=== PATIENT | female | born 1950 | race Caucasian/White ===

== ENCOUNTER → 2017-07-21 | Outpatient (CLI) | payer MEDICARE ==
--- NOTE | 2017-07-23 08:12 | MM ---
Reason for exam: screening (asymptomatic). Last mammogram was performed 2 years and 1 month ago. History: Patient is postmenopausal. Family history of breast cancer in paternal aunt at age 38 and breast cancer in daughter. Benign right mammotome panel of the right breast, March 14, 2009. Benign right mammotome panel of the right breast, March 14, 2009. Physical Findings: A clinical breast exam by your physician is recommended on an annual basis and results should be correlated with mammographic findings. MG Screening Mammo w CAD Bilateral CC and MLO view(s) were taken. Prior study comparison: June 08, 2015, bilateral MG screening mammo w CAD. January 02, 2011, bilateral digital screening mammo w/CAD. There are scattered fibroglandular densities. Stable benign calcifications. There is no discrete abnormality. No significant changes when compared with prior studies. ASSESSMENT: Benign, BI-RAD 2 RECOMMENDATION: Routine screening mammogram of both breasts in 1 year.
== END ==
LOC: RADMAMWWP 15:01
PROVIDERS: ATTEND Internal Medicine
DX: Z12.31 Encounter for screening mammogram for malignant neoplasm of breast (principal)

== ENCOUNTER 2017-12-02 10:31 | Emergency (ER) | payer OTHER, MEDICARE ==
[2017-12-02 10:42] VITALS: RESP 16; TEMP 98
[2017-12-02 10:57] LABS: Glucose,Whole Blood 133 mg/dL (75-99)
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
[2017-12-02] MEDS ORDERED: ACETAMINOPHEN TAB 500 MG TAB PO STA (12:14)
[2017-12-02 12:32] VITALS: BP 130/83; PULSE 68
== END 2017-12-02 12:31 | disposition home or self-care (01) ==
LOC: EC 10:31
DX: S22.31XA Fracture of one rib, right side, initial encounter for closed fracture (principal); Z79.82 Long term (current) use of aspirin; E78.5 Hyperlipidemia, unspecified; I10 Essential (primary) hypertension; Z79.899 Other long term (current) drug therapy; Z53.29 Procedure and treatment not carried out because of patient's decision for other reasons; V49.40XA Driver injured in collision with unspecified motor vehicles in traffic accident, initial encounter; Y92.410 Unspecified street and highway as the place of occurrence of the external cause
CPT/HCPCS: 36415; 71250; 72125; 93005; 99285

== ENCOUNTER → 2022-10-09 | Outpatient (CLI) | payer MEDICARE ==
--- NOTE | 2022-10-09 11:46 | BD ---
EXAMINATION TYPE: Axial Bone Density DATE OF EXAM: 10/09/2022 COMPARISON: NONE CLINICAL HISTORY: 71 years year old Female. ICD-10 CODE: M85.80 OSTEOPENIA Height: 5 FT 1 1/2 IN Weight: 198 FRAX RISK QUESTIONS: Alcohol (3 or more units per day): NO Family History (Parent hip fracture): NO Glucocorticoids (More than 3mos): NO (Ex: prednisone, prednisolone, methylprednisolone, dexamethasone, and hydrocortisone). History of Fracture in Adulthood: NO Secondary Osteoporosis: 1. Type 1 Diabetes: NO 2. Hyperthyroidism: NO 3. Menopause before 45: NO 4. Malnutrition: NO 5. Chronic liver disease: NO Rheumatoid Arthritis: NO Current Tobacco Use: NO RISK FACTORS HISTORY OF: Surgery to Spine/Hip(right/left)/Wrist (right/left): NO Family History of Osteoporosis: YES Active: SOMETIMES Diet low in dairy products/other sources of calcium: NO Postmenopausal woman: YES Take estrogen and/or progesterone medications: NO Lost more than 2 inches in height since high school: YES Frequent falls: NO Poor Health: GOOD Hyperparathyroidism: NO Adrenal Insufficiency: NO MEDICATIONS: Additional Medications: BLOOD PRESSURE MEDS Additional History: EXAM MEASUREMENTS: Bone mineral densitometry was performed using the [employer] System. Bone mineral density as measured about the Lumbar spine is: ----- L1-L4(G/cm2): 1.220 T Score Values are as follows: ----- L1: -1.2 ----- L2: -0.9 ----- L3: 1.1 ----- L4: 1.7 ----- L1-L4: 0.3 Bone mineral density has: DECREASED -5.9 % since study of: 2014 Bone mineral density about the R hip (g/cm2): 0.662 Bone mineral density about the L hip (g/cm2): 0.683 T Score values are as follows: -----R Neck: -2.7 -----L Neck: -2.6 -----R Total: -2.0 -----L Total: -2.4 Bone mineral density has: DECREASED -20.1 % since study of: 2014 FRAX%s: The graph provided illustrates a 16.4 % chance for a major osteoporotic fx and a 5.2 % chance for the hips probability for fx in 10 years time. IMPRESSION: Osteoporosis (T Score less than -2.5). There is increased fracture risk and therapy is usually indicated based on age. Re-Screen 1-2 years. NOTE: T-SCORE=SD OF THE YOUNG ADULT MEAN.
--- NOTE | 2022-10-10 13:34 | MM ---
Reason for Exam: Screening (asymptomatic). Last mammogram was performed 5 year(s) and 2 month(s) ago. Patient History: Menarche at age 10. First Full-Term at age 19. Postmenopausal. 03/14/2009, Benign Core Biopsy on the right side. 03/14/2009, Benign Core Biopsy on the right side. Paternal aunt had breast cancer, age 38. Daughter had breast cancer, bilateral, age 46. Risk Values: Fabby 5 year model risk: 5.0%. NCI Lifetime model risk: 12.0%. Prior Study Comparison: 01/02/2011 Bilateral Screening Mammogram, [facility]. 06/08/2015 Bilateral Screening Mammogram, [facility]. 07/21/2017 Bilateral Screening Mammogram, [facility]. Tissue Density: There are scattered fibroglandular densities. Findings: Analyzed By CAD. Small benign-appearing round along with vascular calcifications in the bilateral breasts are redemonstrated. There are 2 adjacent mammotome biopsy clips in the right breast again seen. No suspicious new dominant mass or worrisome cluster of microcalcification is present bilaterally. Overall Assessment: Benign, BI-RAD 2 Management: Screening Mammogram of both breasts in 1 year. A clinical breast exam by your physician is recommended on an annual basis and results should be correlated with mammographic findings. Electronically signed and approved by: Yovany Arguelles M.D.
== END | disposition home or self-care (01) ==
LOC: RADMAMWWP 09:23
PROVIDERS: ATTEND Family Medicine
DX: Z12.31 Encounter for screening mammogram for malignant neoplasm of breast (principal); M81.0 Age-related osteoporosis without current pathological fracture; M85.89 Other specified disorders of bone density and structure, multiple sites; Z78.0 Asymptomatic menopausal state; Z80.3 Family history of malignant neoplasm of breast; Z98.890 Other specified postprocedural states
CPT/HCPCS: 77063; 77067; 77080

== ENCOUNTER 2023-09-06 19:45 | Inpatient (IN) | payer MEDICARE ==
[2023-09-06 21:13] LABS: Basophils % (A) 0 %; Eosinophils % (A) 0 %; HCT 44.4 % (34.0-46.0); HGB 14.8 gm/dL (11.4-16.0); Lymphocytes # (A) 2.4 k/uL (1.0-4.8); Lymphocytes % (A) 24 %; MCH 27.2 pg (25.0-35.0); MCHC 33.3 g/dL (31.0-37.0); MCV 81.8 fL (80.0-100.0); Mean Platelet Volume 7.6; Monocytes # (A) 0.8 k/uL (0-1.0); Monocytes % (A) 8 %; Neutrophils # (A) 6.5 k/uL (1.3-7.7); Neutrophils % (A) 65 %; Platelet Count 379 k/uL (150-450); RBC 5.43 m/uL (3.80-5.40); RDW 14.3 % (11.5-15.5)
[2023-09-06 21:24] LABS: ALT 16 U/L (4-34); AST 27 U/L (14-36); African American GFR (CKD) 88 (>60 ml/min/1.73 sqM); Albumin 4.3 g/dL (3.5-5.0); Alkaline Phosphatase 138 U/L (38-126); Anion Gap 14 mmol/L; Appearance,Urine Cloudy (Clear); Bacteria,Urine Rare /hpf; Bilirubin,Urine Negative (Negative); Blood Urea Nitrogen 21 mg/dL (7-17); Blood,Urine Negative (Negative); Calcium 9.7 mg/dL (8.4-10.2); Carbon Dioxide 24 mmol/L (22-30); Cellular Casts,Urine 4 /lpf (0); Chloride 103 mmol/L (98-107); Color,Urine Yellow; Glucose 108 mg/dL (74-99); Glucose,Urine (UA) Negative (Negative); Hyaline Casts,Urine 12 /lpf (0-2); Ketones,Urine Negative (Negative); Leukocyte Esterase,Urine Large (Negative); Magnesium 1.9 mg/dL (1.6-2.3); Mucus,Urine Many /hpf; Nitrite,Urine Negative (Negative); Non-African American GFR(CKD) 76 (>60 ml/min/1.73 sqM); PH, Urine 5.5 (5.0-8.0); Potassium 3.6 mmol/L (3.5-5.1); Protein,Urine 1+ (Negative); RBC,Urine 5 /hpf (0-5); Sodium 141 mmol/L (137-145); Specific Gravity,Urine 1.024 (1.001-1.035); Squamous Epithelial Cell,Urine 5 /hpf (0-4); Total Bilirubin 0.5 mg/dL (0.2-1.3); Total Protein 8.8 g/dL (6.3-8.2); Urobilinogen,Urine <2.0 mg/dL (<2.0); WBC,Urine 50 /hpf (0-5)
[2023-09-06 21:36] LABS: Partial Thromboplastin Time 24.6 sec (22.0-30.0); Prothrombin Time 10.7 sec (10.0-12.5)
--- NOTE | 2023-09-06 21:37 | XR ---
EXAMINATION TYPE: XR chest 2V DATE OF EXAM: 09/06/2023 COMPARISON: None HISTORY: 72-year-old female confusion, chest pain, syncopal episode, altered mental state TECHNIQUE: PA and lateral views FINDINGS: Heart mildly enlarged. Interstitial prominence. Hyperinflation. No consolidation or pleural effusion. IMPRESSION: Mild cardiomegaly and COPD. Otherwise, no acute process seen.
--- NOTE | 2023-09-06 22:12 | ED ---
Altered Mental Status HPI - General Chief Complaint: Altered Mental Status Stated Complaint: Afib Time Seen by Provider: 09/06/23 19:54 Source: patient Mode of arrival: wheelchair Limitations: no limitations - History of Present Illness Initial Comments: 72-year-old female with a past medical history significant for hypertension presenting to the ED with a chief complaint of dizziness. Per patient, was standing in the kitchen preparing food when she all of a sudden felt as if she was going to pass out. Due to this, patient states that she went to sit down and at this time patient's daughter reports that she seemed to have a vasovagal episode. During this time, they report that the patient's eyes rolled to the back of her head and she stopped responding to their questions. During this time, patient reports that she was able to hear and see everything as normally however felt as if she was to weak/fatigued to do anything. During this time t here is no chest pain shortness of breath or palpitations. Episode lasted approximately 1-2 minutes. As of now, both patient and family report that she is back to her normal self. Denies abdominal pain, nausea, vomiting, diarrhea, changes in bowel or bladder habits. No other complaints. - Related Data Home Medications Medication Instructions Recorded Confirmed Aspirin EC [Ecotrin Low Dose] 81 mg PO HS 12/02/17 09/06/23 Metoprolol Tartrate [Lopressor] 50 mg PO HS 12/02/17 09/06/23 Pravastatin Sodium [Pravachol] 20 mg PO HS 12/02/17 09/06/23 amLODIPine [Norvasc] 10 mg PO HS 12/02/17 09/06/23 lisinopriL [Zestril] 20 mg PO HS 09/06/23 09/06/23 Allergies Allergy/AdvReac Type Severity Reaction Status Date / Time No Known Allergies Allergy Verified 09/06/23 21:58 Review of Systems ROS Statement: Those systems with pertinent positive or pertinent negative responses have been documented in the HPI. ROS Other: All systems not noted in ROS Statement are negative. Past Medical History Past Medical History: Atrial Fibrillation, Hyperlipidemia, Hypertension History of Any Multi-Drug Resistant Organisms: None Reported Past Surgical History: No Surgical Hx Reported Past Psychological History: No Psychological Hx Reported Smoking Status: Never smoker Past Alcohol Use History: None Reported, Unable to Obtain Past Drug Use History: None Reported General Exam Limitations: no limitations General appearance: alert, in no apparent distress Eye exam: Present: normal appearance Neck exam: Present: normal inspection Respiratory exam: Present: normal lung sounds bilaterally Cardiovascular Exam: Present: regular rate, normal rhythm GI/Abdominal exam: Present: soft Neurological exam: Present: alert, oriented X3, CN II-XII intact (Finger to nose, rapid alternating hand movements, [id number] intact.) Skin exam: Present: warm, dry Course Vital Signs 09/06/23 09/06/23 09/06/23 19:46 20:08 21:00 Temperature 97.9 F 98.1 F Pulse Rate 89 87 86 Respiratory 18 18 18 Rate Blood Pressure 155/86 141/71 154/90 O2 Sat by Pulse 99 98 Oximetry Medical Decision Making - Medical Decision Making Was pt. sent in by a medical professional or institution (, PA, DIANETIC COUNSELOR, urgent care, hospital, or half-way...) When possible be specific @ -No Did you speak to anyone other than the patient for history (EMS, parent, family, police, friend...)? What history was obtained from this source @ -Spoke to both patient and family for history. For further details please see HPI. Did you review nursing and triage notes (agree or disagree)? Why? @ -I reviewed and agree with nursing and triage notes Were old charts reviewed (outside hosp., previous admission, EMS record, old EKG, old radiological studies, urgent care reports/EKG's, half-way records)? Report findings @ -No old charts were reviewed Differential Diagnosis (chest pain, altered mental status, abdominal pain women, abdominal pain men, vaginal bleeding, weakness, fever, dyspnea, syncope, headache, dizziness, GI bleed, back pain, seizure, CVA, palpatations, mental health, musculoskeletal)? @ -Differential Dizziness: Benign paroxysmal positional Vertigo, Menieres disease, otitis media, acoustic neuroma, vertebrobasilar insufficiency, cerebellar stroke, encephalitis, hypovolemic, arrhythmia, coronary artery syndrome, anemia, this is not meant to be an all-inclusive list Differential Chest Pain: Stable Angina, Unstable Angina, STEMI, NSTEMI Aortic Dissection, Pneumothorax, Musculoskeletal, Esophageal Spasm GERD, Cholecystitis, Pancreatitis, Zoster, this is not meant to be an all-inclusive list. EKG interpreted by me (3pts min.). @ -As above X-rays interpreted by me (1pt min.). @ -Chest x-ray interpreted by me showing no evidence of acute finding. CT interpreted by me (1pt min.). @ -None done U/S interpreted by me (1pt. min.). @ -None done What testing was considered but not performed or refused? (CT, X-rays, U/S, labs)? Why? @ -None What meds were considered but not given or refused? Why? @ -None Did you discuss the management of the patient with other professionals (pro fessionals i.e. , PA, DIANETIC COUNSELOR, lab, RT, psych nurse, criminal justice social worker, genetic counsellor, teacher, data officer, manager case management)? Give summary @ -Case discussed with Dr. Stewart, who accepts admission Was smoking cessation discussed for >3mins.? @ -No Was critical care preformed (if so, how long)? @ -Yes, 20 minutes Were there social determinants of health that impacted care today? How? (Homelessness, low income, unemployed, alcoholism, drug addiction, transportation, low edu. Level, literacy, decrease access to med. care, [facility], rehab)? @ -No Was there de-escalation of care discussed even if they declined (Discuss DNR or withdrawal of care, Hospice)? DNR status @ -No What co-morbidities impacted this encounter? (DM, HTN, Smoking, COPD, CAD, Cancer, CVA, ARF, Chemo, Hep., AIDS, mental health diagnosis, sleep apnea, morb id obesity)? @ -HTN Was patient admitted / discharged? Hospital course, mention meds given and route, prescriptions, significant lab abnormalities, going to OR and other pertinent info. @ -Admission 72-year-old female presenting to the ED secondary to lightheadedness episode of generalized weakness. Laboratory studies reviewed. CBC unremarkable. Chemistry panel largely unremarkable. Initial troponin 0.121. Urine does show leukocytes esterase and 50 white blood cells however also does show some contamination and patient notes no urinary symptoms. EKG largely similar to prior however changes in aVF. She will be admitted with consult to cardiology. Heparin initiated in the ED. Plan of care discussed with patient and family who are in agreement. Undiagnosed new problem with uncertain prognosis? @ -No Drug Therapy requiring intensive monitoring for toxicity (Heparin, Nitro, Insulin, Cardizem)? @ -Yes, Heparin Were any procedures done? @ -No Diagnosis/symptom? @ -Lightheadedness, NSTEMI Acute, or Chronic, or Acute on Chronic? @ -Acute Uncomplicated (without systemic symptoms) or Complicated (systemic symptoms)? @ -Complicated Side effects of treatment? @ -No Exacerbation, Progression, or Severe Exacerbation? @ -No Poses a threat to life or bodily function? How? (Chest pain, [place], [place], pneumonia, PE, COPD, DKA, ARF, appy, cholecystitis, CVA, Diverticulitis, Homicidal, Suicidal, threat to staff... and all critical care pts) @ -Yes, NSTEMI - Lab Data Result diagrams: 09/06/23 20:42 09/06/23 20:42 Lab Results 09/06/23 09/06/23 09/06/23 Range/Units 20:42 20:42 20:42 WBC 10.0 (3.8-10.6) k/uL RBC 5.43 H (3.80-5.40) m/uL Hgb 14.8 (11.4-16.0) gm/dL Hct 44.4 (34.0-46.0) % MCV 81.8 (80.0-100.0) fL MCH 27.2 (25.0-35.0) pg MCHC 33.3 (31.0-37.0) g/dL RDW 14.3 (11.5-15.5) % Plt Count 379 (150-450) k/uL MPV 7.6 Neutrophils % 65 % Lymphocytes % 24 % Monocytes % 8 % Eosinophils % 0 % Basophils % 0 % Neutrophils # 6.5 (1.3-7.7) k/uL Lymphocytes # 2.4 (1.0-4.8) k/uL Monocytes # 0.8 (0-1.0) k/uL Eosinophils # 0.0 (0-0.7) k/uL Basophils # 0.0 (0-0.2) k/uL PT 10.7 (10.0-12.5) sec INR 1.0 (<1.2) APTT 24.6 (22.0-30.0) sec Sodium (137-145) mmol/L Potassium (3.5-5.1) mmol/L Chloride (98-107) mmol/L Carbon Dioxide (22-30) mmol/L Anion Gap mmol/L BUN (7-17) mg/dL Creatinine (0.52-1.04) mg/dL Est GFR (CKD-EPI)AfAm (>60 ml/min/1.73 sqM) Est GFR (CKD-EPI)NonAf (>60 ml/min/1.73 sqM) Glucose (74-99) mg/dL Calcium (8.4-10.2) mg/dL Magnesium (1.6-2.3) mg/dL Total Bilirubin (0.2-1.3) mg/dL AST (14-36) U/L ALT (4-34) U/L Alkaline Phosphatase (38-126) U/L Troponin I (0.000-0.034) ng/mL Total Protein (6.3-8.2) g/dL Albumin (3.5-5.0) g/dL Urine Color Yellow Urine Appearance Cloudy H (Clear) Urine pH 5.5 (5.0-8.0) Ur Specific [place] 1.024 (1.001-1.035) Urine Protein 1+ H (Negative) Urine Glucose (UA) Negative (Negative) Urine Ketones Negative (Negative) Urine Blood Negative (Negative) Urine Nitrite Negative (Negative) Urine Bilirubin Negative (Negative) Urine Urobilinogen <2.0 (<2.0) mg/dL Ur Leukocyte Esterase Large H (Negative) Urine RBC 5 (0-5) /hpf Urine WBC 50 H (0-5) /hpf Ur Squamous Epith Cells 5 H (0-4) /hpf Urine Bacteria Rare H (None) /hpf Cellular Casts 4 (0) /lpf Hyaline Casts 12 H (0-2) /lpf Urine Mucus Many H (None) /hpf 09/06/23 09/06/23 Range/Units 20:42 20:42 WBC (3.8-10.6) k/uL RBC (3.80-5.40) m/uL Hgb (11.4-16.0) gm/dL Hct (34.0-46.0) % MCV (80.0-100.0) fL MCH (25.0-35.0) pg MCHC (31.0-37.0) g/dL RDW (11.5-15.5) % Plt Count (150-450) k/uL MPV Neutrophils % % Lymphocytes % % Monocytes % % Eosinophils % % Basophils % % Neutrophils # (1.3-7.7) k/uL Lymphocytes # (1.0-4.8) k/uL Monocytes # (0-1.0) k/uL Eosinophils # (0-0.7) k/uL Basophils # (0-0.2) k/uL PT (10.0-12.5) sec INR (<1.2) APTT (22.0-30.0) sec Sodium 141 (137-145) mmol/L Potassium 3.6 (3.5-5.1) mmol/L Chloride 103 (98-107) mmol/L Carbon Dioxide 24 (22-30) mmol/L Anion Gap 14 mmol/L BUN 21 H (7-17) mg/dL Creatinine 0.77 (0.52-1.04) mg/dL Est GFR (CKD-EPI)AfAm 88 (>60 ml/min/1.73 sqM) Est GFR (CKD-EPI)NonAf 76 (>60 ml/min/1.73 sqM) Glucose 108 H (74-99) mg/dL Calcium 9.7 (8.4-10.2) mg/dL Magnesium 1.9 (1.6-2.3) mg/dL Total Bilirubin 0.5 (0.2-1.3) mg/dL AST 27 (14-36) U/L ALT 16 (4-34) U/L Alkaline Phosphatase 138 H (38-126) U/L Troponin I 0.121 H* (0.000-0.034) ng/mL Total Protein 8.8 H (6.3-8.2) g/dL Albumin 4.3 (3.5-5.0) g/dL Urine Color Urine Appearance (Clear) Urine pH (5.0-8.0) Ur Specific [place] (1.001-1.035) Urine Protein (Negative) Urine Glucose (UA) (Negative) Urine Ketones (Negative) Urine Blood (Negative) Urine Nitrite (Negative) Urine Bilirubin (Negative) Urine Urobilinogen (<2.0) mg/dL Ur Leukocyte Esterase (Negative) Urine RBC (0-5) /hpf Urine WBC (0-5) /hpf Ur Squamous Epith Cells (0-4) /hpf Urine Bacteria (None) /hpf Cellular Casts (0) /lpf Hyaline Casts (0-2) /lpf Urine Mucus (None) /hpf Disposition Clinical Impression: NSTEMI (non-ST elevated myocardial infarction), Lightheadedness Disposition: ADMITTED IP TO THIS [facility] Condition: Good Referrals: Jasson Morales [Primary Care Provider] - 1-2 days Time of Disposition: 22:25
[2023-09-06] MEDS ORDERED: HEPARIN SODIUM 1,000 UN/ML (10ML VL) IV ONE (22:25)
[2023-09-06] MEDS ORDERED: HEPARIN SODIUM 1,000 UN/ML (10ML VL) IV PRN (22:25)
[2023-09-06] MEDS ORDERED: NALOXONE 0.4 MG/ML 1 ML VIAL IV PRN (22:26)
[2023-09-06] MEDS ORDERED: HYDROmorphone 0.5 MG/0.5 ML SYRINGE IVP PRN (22:26)
[2023-09-06] MEDS ORDERED: HYDROmorphone 1 MG/ML 1 ML SYRINGE IVP PRN (22:26)
[2023-09-06] MEDS ORDERED: ONDANSETRON 4 MG/2 ML VIAL IVP PRN (22:26)
[2023-09-06] MEDS: HEPARIN SOD,PORK IN 0.45% NACL 25,000 UNIT in 0.45% NACL 1 250ML.BAG IV SCH (22:46)
[2023-09-06] MEDS: SODIUM CHLORIDE 0.9% 1,000 ML IV SCH (22:51)
[2023-09-07 06:24] LABS: INR 1.1 (<1.2); Prothrombin Time 11.4 sec (10.0-12.5)
[2023-09-07 06:27] LABS: Basophils # (A) 0.1 k/uL (0-0.2); Basophils % (A) 1 %; Eosinophils # (A) 0.1 k/uL (0-0.7); Eosinophils % (A) 1 %; HCT 42.9 % (34.0-46.0); HGB 14.3 gm/dL (11.4-16.0); Lymphocytes # (A) 3.7 k/uL (1.0-4.8); Lymphocytes % (A) 37 %; MCH 27.3 pg (25.0-35.0); MCHC 33.2 g/dL (31.0-37.0); MCV 82.2 fL (80.0-100.0); Mean Platelet Volume 7.8; Monocytes # (A) 0.7 k/uL (0-1.0); Monocytes % (A) 7 %; Neutrophils # (A) 5.3 k/uL (1.3-7.7); Neutrophils % (A) 52 %; Platelet Count 345 k/uL (150-450); RBC 5.22 m/uL (3.80-5.40); RDW 14.3 % (11.5-15.5); WBC 10.1 k/uL (3.8-10.6)
--- NOTE | 2023-09-07 06:37 | P.HPIM ---
History of Present Illness H&P Date: 09/07/23 History of present illness; patient 72-year-old lady with past medical history s ignificant for hypertension, hyperlipidemia who presented to the ER for altered mental status and presyncopal event. Patient stated that she was all right yesterday when while cooking in the kitchen she suddenly felt as if she will pass out. Patient sat on the chair and the next thing patient daughter noticed that she had a burning of her eyes she stopped responding to questions. There was no noticeable jerking movements of any extremity. Patient did lose control over her urine. There was no complain of any tongue biting. Patient was passed out for approximately 2 minutes, patient does state that at that time she does remember that people were talking over her but she had no strength to respond to the questions. Following that event, patient was back to her normal self. Patient was brought to the ER Initial lab work done in the ER showed WBC 10, hemoglobin 14.8, platelet count 3 79, sodium 141, potassium 3.6, BUN/creatinine, creatinine 0.77, glucose 108, AST 27, AST 16, troponin 0.121 UA done showed large amount of leukocyte Estrace, urine WBC50 EKG done in the ER showed heart rate of , no ST segment elevation , T-wave inversions seen in 1 and aVL Chest x-ray done in the ER showed mild cardiomegaly and COPD Patient admitted to internal medicine service REVIEW OF SYSTEMS: CONSTITUTIONAL: No fever, no malaise, no fatigue. HEENT: No recent visual problems or hearing problems. Denied any sore throat. CARDIOVASCULAR: No chest pain, orthopnea, PND, no palpitations, no syncope. PULMONARY: No shortness of breath, no cough, no hemoptysis. GASTROINTESTINAL: No diarrhea, no nausea, no vomiting, no abdominal pain. NEUROLOGICAL: As mentioned above HEMATOLOGICAL: Denies any bleeding or petechiae. GENITOURINARY: Denies any burning micturition, frequency, or urgency. MUSCULOSKELETAL/RHEUMATOLOGICAL: Denies any joint pain, swelling, or any muscle pain. ENDOCRINE: Denies any polyuria or polydipsia. The rest of the 14-point review of systems is negative. PHYSICAL EXAMINATION: GENERAL: The patient is alert and oriented x3, not in any acute distress. Well developed, well nourished. HEENT: Pupils are round and equally reacting to light. EOMI. No scleral icterus. No conjunctival pallor. Normocephalic, atraumatic. No pharyngeal erythema. No thyromegaly. CARDIOVASCULAR: S1 and S2 present. No murmurs, rubs, or gallops. PULMONARY: Chest is clear to auscultation, no wheezing or crackles. ABDOMEN: Soft, nontender, nondistended, normoactive bowel sounds. No palpable organomegaly. MUSCULOSKELETAL: No joint swelling or deformity. EXTREMITIES: No cyanosis, clubbing, or pedal edema. NEUROLOGICAL: Gross neurological examination did not reveal any focal deficits. SKIN: No rashes. Assessment and plan Syncope Elevated troponin Hypertension Monitor vital signs Monitor CBC Monitor CMP Continue telemetry monitoring Trend troponin. Ordered 2-D echo Ordered CT head Ordered ultrasound of carotids Continue pharmacy dose heparin Consult cardiology Consult neurology Labs and medication were reviewed.. Continue same treatment. Continue with symptomatic treatment. Resume home medication. Monitor labs and vitals. DVT and GI prophylaxis. Further recommendations as per clinical course of the patient Dictation was produced using [employer] dictation software. please excuse any grammatical, word or spelling errors. Past Medical History Past Medical History: Atrial Fibrillation, Hyperlipidemia, Hypertension History of Any Multi-Drug Resistant Organisms: None Reported Past Surgical History: No Surgical Hx Reported Past Psychological History: No Psychological Hx Reported Smoking Status: Never smoker Past Alcohol Use History: None Reported, Unable to Obtain Past Drug Use History: None Reported Medications and Allergies Home Medications Medication Instructions Recorded Confirmed Type Aspirin EC [Ecotrin Low Dose] 81 mg PO HS 12/02/17 09/06/23 History Metoprolol Tartrate [Lopressor] 50 mg PO HS 12/02/17 09/06/23 History Pravastatin Sodium [Pravachol] 20 mg PO HS 12/02/17 09/06/23 History amLODIPine [Norvasc] 10 mg PO HS 12/02/17 09/06/23 History lisinopriL [Zestril] 20 mg PO HS 09/06/23 09/06/23 History Allergies Allergy/AdvReac Type Severity Reaction Status Date / Time No Known Allergies Allergy Verified 09/06/23 21:58 Physical Exam Vitals: Vital Signs Temp Pulse Resp BP BP BP BP 09/06/23 21:00 86 18 154/90 150/76 154/90 09/06/23 20:58 18 150/76 12/24/23 20:55 18 133/74 09/06/23 20:08 98.1 F 87 18 141/71 09/06/23 19:46 97.9 F 89 18 155/86 Pulse Ox 09/06/23 21:00 09/06/23 20:58 09/06/23 20:55 96 09/06/23 20:08 98 09/06/23 19:46 99 Intake and Output 09/06/23 09/06/23 09/07/23 14:59 22:59 06:59 Other: Weight 88.451 kg Results CBC & Chem 7: 09/07/23 05:44 09/06/23 20:42 Labs: Abnormal Lab Results - Last 24 Hours (Table) 09/06/23 09/06/23 09/06/23 Range/Units 20:42 20:42 20:42 RBC 5.43 H (3.80-5.40) m/uL BUN 21 H (7-17) mg/dL Glucose 108 H (74-99) mg/dL Alkaline Phosphatase 138 H (38-126) U/L Troponin I (0.000-0.034) ng/mL Total Protein 8.8 H (6.3-8.2) g/dL Urine Appearance Cloudy H (Clear) Urine Protein 1+ H (Negative) Ur Leukocyte Esterase Large H (Negative) Urine WBC 50 H (0-5) /hpf Ur Squamous Epith Cells 5 H (0-4) /hpf Urine Bacteria Rare H (None) /hpf Hyaline Casts 12 H (0-2) /lpf Urine Mucus Many H (None) /hpf 09/06/23 09/07/23 09/07/23 Range/Units 20:42 00:04 02:44 RBC (3.80-5.40) m/uL BUN (7-17) mg/dL Glucose (74-99) mg/dL Alkaline Phosphatase (38-126) U/L Troponin I 0.121 H* 0.123 H* 0.094 H* (0.000-0.034) ng/mL Total Protein (6.3-8.2) g/dL Urine Appearance (Clear) Urine Protein (Negative) Ur Leukocyte Esterase (Negative) Urine WBC (0-5) /hpf Ur Squamous Epith Cells (0-4) /hpf Urine Bacteria (None) /hpf Hyaline Casts (0-2) /lpf Urine Mucus (None) /hpf
--- NOTE | 2023-09-07 07:45 | CT ---
EXAMINATION TYPE: CT brain wo con DATE OF EXAM: 09/07/2023 COMPARISON: None HISTORY: 72-year-old female confusion, altered mental status TECHNIQUE: Examination was done in axial plane without intravenous contrast. Coronal and sagittal r econstructions performed. CT DLP: 1095.4 mGycm Automated exposure control for dose reduction was used. FINDINGS: There is no evidence of acute intracranial hemorrhage, acute ischemic changes, mass, mass-effect, or extra-axial fluid collection. There is no effacement of cerebral sulci or basal subarachnoid cister ns. There is no hydrocephalus. There is no midline shift. Alejandro-white matter distinction is preserv ed. Mild to moderate patchy white matter hypodensities in both cerebral hemispheres. A lacunar infarct le ft basal ganglia. Leftward nasal septal deviation. Trace mucosal thickening ethmoid air cells. Mastoid air cells are pn eumatized. Orbits and globes are intact. IMPRESSION: Mild to moderate patchy burden of chronic small vessel ischemic disease. No acute intracranial abnorm ality seen.
[2023-09-07] MEDS: amLODIPine 10 MG TAB PO SCH (09:21)
--- NOTE | 2023-09-07 11:18 | US ---
EXAMINATION TYPE: US carotid duplex BILAT DATE OF EXAM: 09/07/2023 COMPARISON: NONE CLINICAL INDICATION: Female, 72 years old with history of Syncope; episode of possible syncope/seizur e TECHNIQUE: Carotid duplex ultrasound examination. Indirect Doppler criteria was utilized. FINDINGS: EXAM MEASUREMENTS: RIGHT: Peak Systolic Velocity (PSV) cm/sec ----- Right CCA: 52.0 ----- Right ICA: 86.6 ----- Right ECA: 104.7 ICA/CCA ratio: 1.7 RIGHT: End Diastole cm/sec ----- Right CCA: 15.5 ----- Right ICA: 29.6 ----- Right ECA: 14.1 LEFT: Peak Systolic Velocity (PSV) cm/sec ----- Left CCA: 94.3 ----- Left ICA: 116.1 ----- Left ECA: 118.1 ICA/CCA ratio: 1.2 LEFT: End Diastole cm/sec ----- Left CCA: 20.6 ----- Left ICA: 35.3 ----- Left ECA: 17.5 VERTEBRALS (direction of flow): Right Vertebral: Antegrade Left Vertebral: Antegrade. Moderate atelectatic change left carotid bifurcation and mild at the right bifurcation. Mitigation Supervisor notes: Rhythm: Arrhythmia, best visualized on image 17 & 48 IMPRESSION: 1. No hemodynamically significant internal carotid artery stenosis on either side. 2. The manager power indicates a nonspecific aberrant cardiac rhythm during the scan. Clinically correl ate. Criteria for Assigning % of Stenosis / Diameter reduction (Estimation based on the indirect measurements of the internal carotid artery velocities (ICA PSV). 1. Normal (no stenosis)=ICA PSV < 125 cm/s: ratio < 2.0: ICA EDV<40 cm/s. 2. Less than 50% stenosis=ICA PSV < 125 cm/s: ratio < 2.0: ICA EDV<40 cm/s. 3. 50 to 69% stenosis=ICA PSV of 125 to 230 cm/s: ration 2.0 ? 4.0: ICA EDV 40-100 cm/s. 4. Greater than 70% stenosis to near occlusion= ICA PSV > 230 cm/s: ratio > 4.0: ICA EDV > 100 cm/s. 5. Near occlusion= ICA PSV velocities may be low or undetectable: variable ratio and ICA EDV. 6. Total occlusion=unable to detect flow.
--- NOTE | 2023-09-07 12:36 | P.CRDCN ---
History of Present Illness History of present illness: This is Dr. Damian dictating an H/P on this patient The patient was interviewed and examined IMPRESSION / ASSESSMENT: Episode of presyncope consistent with vasovagal syncope with typical prodrome Underlying left bundle branch block Abnormal troponins, small, flat trend PLAN: D-dimer 2-D echo and Doppler study Standing the blood pressure medications HPI 72-year-old female who presented with dizziness and loss of consciousness while standing, preparing Óscar meal 72-year-old female who has had episodes in the past. She was standing preparing food in the kitchen when she suddenly felt as if she was "pass out. She was nauseous and. No chest pain no palpitations Mildly flushed According to the ER note the patient's eyes rolled back and she stopped responding to the family's questions However the patient states that she was able to hear everything but she just felt very weak and could not do anything The episode was brief and lasted barely 1-2 minutes She is back to her usual self Past history includes hypertension, dyslipidemia and she takes aspirin and metoprolol pravastatin amlodipine ancestral all in the evening at the same time A 12 EKG shows sinus mechanism with a left bundle branch block pattern with a QRS width of 172 ms and notching consistent with a typical left bundle branch block 3 abnormal troponins but with a flat pattern Normal electrolytes and normal renal function ROS: No fever chills or rigors, no cough, phlegm or expectoration, no nausea, vomiting or diarrhea, no hematuria, dysuria, no musculoskeletal complaints, no strokes or seizures, no skin lesions. EXAMINATION: Elevated blood pressure readings, 153/70 755/74 Pulse rate in the 70s, afebrile Breath sounds are clear no rhonchi no crackles Normal heart sounds no murmurs REVIEW OF LABS, ECG & MEDICAL DATA Chest x-ray shows interstitial prominence CT of the brain revealed chronic small vessel ischemic disease, no other abnormalities No significant carotid stenosis Past Medical History Past Medical History: Atrial Fibrillation, Hyperlipidemia, Hypertension History of Any Multi-Drug Resistant Organisms: None Reported Past Surgical History: No Surgical Hx Reported Past Psychological History: No Psychological Hx Reported Smoking Status: Never smoker Past Alcohol Use History: None Reported, Unable to Obtain Past Drug Use History: None Reported Medications and Allergies Home Medications Medication Instructions Recorded Confirmed Type Aspirin EC [Ecotrin Low Dose] 81 mg PO HS 12/02/17 09/06/23 History Metoprolol Tartrate [Lopressor] 50 mg PO HS 12/02/17 09/06/23 History Pravastatin Sodium [Pravachol] 20 mg PO HS 12/02/17 09/06/23 History amLODIPine [Norvasc] 10 mg PO HS 12/02/17 09/06/23 History lisinopriL [Zestril] 20 mg PO HS 09/06/23 09/06/23 History Allergies Allergy/AdvReac Type Severity Reaction Status Date / Time No Known Allergies Allergy Verified 09/06/23 21:58 Physical Exam Vitals: Vital Signs Temp Pulse Pulse Resp BP BP BP 09/07/23 12:30 79 16 09/07/23 09:00 75 18 155/74 09/07/23 06:00 69 18 152/77 09/07/23 05:22 98.0 F 73 18 153/77 09/07/23 05:00 72 13 09/07/23 04:00 77 15 09/07/23 03:00 73 18 09/07/23 02:00 80 18 09/07/23 01:00 87 19 140/89 09/06/23 23:00 81 8 L 133/92 09/06/23 22:00 87 33 H 154/90 09/06/23 21:44 93 15 154/90 09/06/23 21:00 86 18 154/90 150/76 154/90 09/06/23 20:58 18 09/06/23 20:55 18 09/06/23 20:08 98.1 F 87 18 141/71 09/06/23 19:46 97.9 F 89 18 155/86 BP Pulse Ox 09/07/23 12:30 118/58 95 09/07/23 09:00 99 09/07/23 06:00 94 L 09/07/23 05:22 95 09/07/23 05:00 95 09/07/23 04:00 95 09/07/23 03:00 94 L 09/07/23 02:00 95 09/07/23 01:00 95 09/06/23 23:00 95 09/06/23 22:00 93 L 09/06/23 21:44 96 09/06/23 21:00 09/06/23 20:58 150/76 09/06/23 20:55 133/74 96 09/06/23 20:08 98 09/06/23 19:46 99 Intake and Output 09/06/23 09/07/23 09/07/23 22:59 06:59 14:59 Other: Weight 88.451 kg Results 09/07/23 05:44 09/06/23 20:42 Cardiac Enzymes 09/06/23 09/06/23 09/07/23 Range/Units 20:42 20:42 00:04 AST 27 (14-36) U/L Troponin I 0.121 H* 0.123 H* (0.000-0.034) ng/mL 09/07/23 Range/Units 02:44 AST (14-36) U/L Troponin I 0.094 H* (0.000-0.034) ng/mL Coagulation 09/06/23 09/07/23 Range/Units 20:42 05:44 PT 10.7 11.4 (10.0-12.5) sec APTT 24.6 48.0 H (22.0-30.0) sec CBC 09/06/23 09/07/23 Range/Units 20:42 05:44 WBC 10.0 10.1 (3.8-10.6) k/uL RBC 5.43 H 5.22 (3.80-5.40) m/uL Hgb 14.8 14.3 (11.4-16.0) gm/dL Hct 44.4 42.9 (34.0-46.0) % Plt Count 379 345 (150-450) k/uL Comprehensive Metabolic Panel 09/06/23 Range/Units 20:42 Sodium 141 (137-145) mmol/L Potassium 3.6 (3.5-5.1) mmol/L Chloride 103 (98-107) mmol/L Carbon Dioxide 24 (22-30) mmol/L BUN 21 H (7-17) mg/dL Creatinine 0.77 (0.52-1.04) mg/dL Glucose 108 H (74-99) mg/dL Calcium 9.7 (8.4-10.2) mg/dL AST 27 (14-36) U/L ALT 16 (4-34) U/L Alkaline Phosphatase 138 H (38-126) U/L Total Protein 8.8 H (6.3-8.2) g/dL Albumin 4.3 (3.5-5.0) g/dL Current Medications Generic Name Dose Route Start Last Admin Trade Name Ana Paula PRN Reason Stop Dose Admin Amlodipine Besylate 10 mg 09/07/23 09:00 09/07/23 09:21 Amlodipine 10 Mg Tab PO 10 mg DAILY ANABELLA Administration Aspirin 81 mg 09/07/23 21:00 Aspirin 81 Mg PO HS ANABELLA Heparin Sodium (Porcine) 0 unit 09/06/23 22:25 Heparin Sodium 1,000 Un/Ml (10ml Vl) IV PER PROTOCOL PRN Low PTT Protocol Hydromorphone HCl 0.5 mg 09/06/23 22:26 Hydromorphone 0.5 Mg/0.5 Ml Syringe IVP Q3HR PRN Moderate Pain (Scale 4 to 6) Hydromorphone HCl 1 mg 09/06/23 22:26 Hydromorphone 1 Mg/Ml 1 Ml Syringe IVP Q3HR PRN Severe Pain (Scale 7 to 10) Heparin Sodium/Sodium Chloride 250 mls @ 9.995 mls/hr 09/06/23 22:30 09/06/23 22:46 25,000 unit/ Sodium Chloride IV 11.3 units/kg/hr .Q24H ANABELLA 9.995 mls/hr Administration Protocol 11.3 UNITS/KG/HR Sodium Chloride 1,000 mls @ 75 mls/hr 09/06/23 22:30 09/06/23 22:51 Saline 0.9% IV 75 mls/hr .[id number] ANABELLA Administration Lisinopril 20 mg 09/07/23 21:00 Lisinopril 20 Mg Tab PO HS ANABELLA Naloxone HCl 0.2 mg 09/06/23 22:26 Naloxone 0.4 Mg/Ml 1 Ml Vial IV Q2M PRN Opioid Reversal Ondansetron HCl 4 mg 09/06/23 22:26 Ondansetron 4 Mg/2 Ml Vial IVP Q8HR PRN Nausea And Vomiting Pravastatin Sodium 40 mg 09/07/23 21:00 Pravastatin Sodium 20 Mg Tab PO HS ANABELLA Intake and Output 09/06/23 09/07/23 09/07/23 22:59 06:59 14:59 Other: Weight 88.451 kg 09/07/23 05:44 09/06/23 20:42
[2023-09-07 13:20] LABS: Chol/HDL Ratio 2.74 Ratio; LDL Cholesterol,Calculated 77.5 mg/dL (0.0-131.0)
[2023-09-07] MEDS: SODIUM CHLORIDE 0.9% 1,000 ML IV SCH ×2 (14:33→23:55)
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
[2023-09-07] MEDS: ASPIRIN 81 MG PO SCH (19:53)
[2023-09-07] MEDS: lisinopriL 20 MG TAB PO SCH (19:53)
[2023-09-07] MEDS ORDERED: PRAVASTATIN SODIUM 20 MG TAB PO SCH (21:00)
[2023-09-07] MEDS ORDERED: METOPROLOL TARTRATE 50 MG TAB PO SCH (21:00)
[2023-09-07] MEDS ORDERED: PRAVASTATIN SODIUM 40 MG TAB PO SCH (21:00)
[2023-09-07] MEDS ORDERED: amLODIPine 10 MG TAB PO SCH (21:00)
[2023-09-07] MEDS: HEPARIN SOD,PORK IN 0.45% NACL 25,000 UNIT in 0.45% NACL 1 250ML.BAG IV SCH (23:55)
[2023-09-08] MEDS: amLODIPine 10 MG TAB PO SCH (08:42)
[2023-09-08] MEDS ORDERED: diphenhydrAMINE 50 MG/ML 1 ML VIAL IVP STA (11:29)
[2023-09-08] MEDS ORDERED: methylPREDNISolone SOD SUCCI 125 MG/2 ML VIAL IV STA (11:29)
[2023-09-08] MEDS ORDERED: FAMOTIDINE 20 MG/2 ML VIAL IV STA (11:29)
--- NOTE | 2023-09-08 11:52 | US ---
EXAMINATION TYPE: US venous doppler duplex LE BI DATE OF EXAM: 09/08/2023 10:26 AM COMPARISON: NONE CLINICAL INDICATION: Female, 72 years old with history of swelling, elevated d-dimer; Admitted for va sovagal PA SIDE PERFORMED: Bilateral TECHNIQUE: The lower extremity deep venous system is examined utilizing real time linear array sonog brenda with graded compression, doppler sonography and color-flow sonography. VESSELS IMAGED: Common Femoral Vein Deep Femoral Vein Greater Saphenous Vein * Femoral Vein Popliteal Vein Small Saphenous Vein * Proximal Calf Veins Posterior tibial veins (* superficial vessels) Right Leg: Negative for DVT Left Leg: Negative for DVT IMPRESSION: No evidence for DVT within the bilateral lower extremities.
--- NOTE | 2023-09-08 12:16 | P.PN ---
Subjective Progress Note Date: 09/08/23 This is a pleasant 72-year-old female patient history of hypertension, hyperlipidemia and previously diagnosed left bundle branch block. Presented to the emergency department after having an episode yesterday while standing up. Food of feeling as if she was given a pass out. She was nauseous became flushed and became briefly unresponsive according to family. EKG on admission showed sinus mechanism with left bundle branch block, troponins were abnormal but flat and not indicative of acute coronary syndrome. She's been feeling well since admission. She's had no further complaints of dizziness, lightheadedness, syncope or near syncopal episodes. Has had no chest discomfort and shortness of breath. She is maintaining sinus mechanism on the monitor. She had an EEG done this morning that is pending. D-dimer was elevated at 0.74 Objective - Vital Signs Vital signs: Vital Signs Temp 98.5 F 09/08/23 08:35 Pulse 72 09/08/23 08:35 Resp 18 09/08/23 08:35 BP 128/88 09/08/23 08:35 Pulse Ox 95 09/08/23 08:35 FiO2 Intake & Output 09/07/23 09/08/23 09/08/23 18:59 06:59 18:59 Intake Total 118 Balance 118 Weight 88.451 kg Intake: Oral 118 Other: Voiding Method Toilet Toilet Toilet # Voids 5 2 1 - Exam PHYSICAL EXAMINATION: HEENT: Head is atraumatic, normocephalic. Pupils equal, round. Neck is supple. There is no elevated jugular venous pressure. HEART EXAMINATION: Heart sounds regular, S1 and S2 normal. No murmur or gallop heard. CHEST EXAMINATION: Lungs reveal diminished air entry bilaterally. No chest wall tenderness is noted on palpation or with deep breathing. ABDOMEN: Soft, nontender. Bowel sounds are heard. No organomegaly noted. EXTREMITIES: 2+ peripheral pulses with no evidence of peripheral edema and no calf tenderness noted. NEUROLOGIC patient is awake, alert and oriented x3. . - Labs CBC & Chem 7: 09/07/23 05:44 09/06/23 20:42 Labs: Abnormal Lab Results - Last 24 Hours (Table) 09/07/23 09/08/23 Range/Units 13:14 10:21 APTT 44.9 H (22.0-30.0) sec D-Dimer 0.74 H (<0.60) mg/L FEU Assessment and Plan Assessment: #1 brief syncope, likely vasovagal 2 abnormal troponins, flat 3 elevated d-dimer #4 left bundle branch block #5 hypertension #6 hyperlipidemia Plan: From cardiology perspective due to patient's symptoms as well as elevated d- dimer we will obtain CT of the chest to rule out PE. Depending on the results further recommendations will be made. DIGITAL PRINT OPERATOR note has been reviewed, I agree with a documented findings and plan of care. Patient was seen and examined.
[2023-09-08] MEDS: ATORVASTATIN 40 MG TAB PO SCH (12:48)
--- NOTE | 2023-09-08 13:13 | CA ---
Transthoracic Echo Report Name: Alicia Lemons Age: 72 Gender: F : 1950 Exam Date: 09/08/2023 09:02 Exam Location: [facility] Ht (in): 63 Wt (lb): 195 Ordering Physician: James Mcintyre Attending/Referring Phys: Office Spec Goran Carlisle Procedure CPT: Indications: nstemi Cardiac Hx: Technical Quality: Fair Contrast 1: Total Dose (mL): Contrast 2: Total Dose (mL): MEASUREMENTS (Male / Female) Normal Values 2D ECHO LV Diastolic Diameter PLAX 4.8 cm 4.2 - 5.9 / 3.9 - 5.3 cm LV Systolic Diameter PLAX 3.4 cm IVS Diastolic Thickness 1.5 cm 0.6 - 1.0 / 0.6 - 0.9 cm LVPW Diastolic Thickness 1.2 cm 0.6 - 1.0 / 0.6 - 0.9 cm LV Relative Wall Thickness 0.6 RV Internal Dim ED PLAX 1.9 cm LVOT Diameter 2.1 cm Aortic Root Diameter 2.4 cm LA Systolic Diameter LX 2.4 cm 3.0 - 4.0 / 2.7 - 3.8 cm LV Diastolic Volume MOD BP 79.3 cm??? 67 - 155 / 56 - 104 cm??? LV Systolic Volume MOD BP 35.3 cm??? - 58 / 19 - 49 cm??? LV Ejection Fraction MOD BP 55.5 % >= 55 % LV Cardiac Index MOD BP 1739.5 cm???/min???m??? LV Diastolic Volume MOD 4C 72.6 cm??? LV Systolic Volume MOD 4C 46.9 cm??? LV Ejection Fraction MOD 4C 35.4 % LV Cardiac Index MOD 4C 1018.7 cm???/min???m??? LV Diastolic Length 4C 6.5 cm LV Systolic Length 4C 6.0 cm LV Diastolic Volume MOD 2C 79.4 cm??? LV Systolic Volume MOD 2C 26.5 cm??? LV Ejection Fraction MOD 2C 66.6 % LV Cardiac Index MOD 2C 2091.1 cm???/min???m??? LV Diastolic Length 2C 7.2 cm LV Systolic Length 2C 5.9 cm LA Volume 37.3 cm??? 18 - 58 / 22 - 52 cm??? LA Volume Index 18.5 cm???/m??? 16 - 28 cm???/m??? DOPPLER AV Peak Velocity 172.7 cm/s AV Peak Gradient 11.9 mmHg AI Peak Velocity 345.7 cm/s AI Peak Gradient 47.8 mmHg AI Pressure Half Time 834.2 ms LVOT Peak Velocity 86.7 cm/s LVOT Peak Gradient 3.0 mmHg LVOT Velocity Time Integral 17.4 cm LVOT Stroke Volume 61.0 cm??? LVOT Stroke Volume Index 31.9 ml/m??? LVOT Cardiac Index 2415.2 cm???/min???m??? AV Area Cont Eq pk 1.8 cm??? MV Peak Velocity 119.3 cm/s MV Peak Gradient 5.7 mmHg MV Mean Velocity 53.2 cm/s MV Mean Gradient 1.5 mmHg MV Velocity Time Integral 30.7 cm MR Peak Velocity 502.8 cm/s MR Peak Gradient 101.1 mmHg Mitral E Point Velocity 72.4 cm/s Mitral A Point Velocity 104.2 cm/s Mitral E to A Ratio 0.7 MV Deceleration Time 207.5 ms MV E' Velocity 4.7 cm/s Mitral E to MV E' Ratio 15.3 TR Peak Velocity 275.8 cm/s TR Peak Gradient 30.4 mmHg Right Ventricular Systolic Press 35.4 mmHg PV Peak Velocity 102.5 cm/s PV Peak Gradient 4.2 mmHg FINDINGS Left Ventricle Moderately increased septal wall thickness. Posterior wall hypokenesis. Normal LV size. Left ventricular ejection fraction is estimated at 30-35 %. Right Ventricle Normal right ventricular size. Right Atrium Normal right atrial size. Left Atrium Normal left atrial size. Mitral Valve Structurally normal mitral valve. Mild to moderate MR. No mitral stenosis. Aortic Valve Aortic valve not well visualized. No aortic valve stenosis or regurgitation. Tricuspid Valve Structurally normal tricuspid valve. Mild TR. Pulmonic Valve Pulmonic valve not well visualized. No pulmonic regurgitation. Pericardium Grossly normal. Aorta Normal size aortic root. CONCLUSIONS Left ventricular ejection fraction 30-35% with inferior and inferolateral hypokinesis Mild to moderate mitral regurgitation Mild tricuspid regurgitation RVSP 35 Previewed by: Dr. Juan Lopez DO (Electronically Signed) Final Date: 08 September 2023 13:12
--- NOTE | 2023-09-08 13:27 | P.PN ---
Subjective Progress Note Date: 09/08/23 patient 72-year-old lady with past medical history significant for hypertension, hyperlipidemia who presented to the ER for altered mental status and presyncopal event. Patient stated that she was all right yesterday when while cooking in the kitchen she suddenly felt as if she will pass out. Patient sat on the chair and the next thing patient daughter noticed that she had a burning of her eyes she stopped responding to questions. There was no noticeable jerking movements of any extremity. Patient did lose control over her urine. There was no complain of any tongue biting. Patient was passed out for approximately 2 minutes, patient does state that at that time she does remember that people were talking over her but she had no strength to respond to the questions. Following that event, patient was back to her normal self. Patient was brought to the ER Initial lab work done in the ER showed WBC 10, hemoglobin 14.8, platelet count 379, sodium 141, potassium 3.6, BUN/creatinine, creatinine 0.77, glucose 108, AST 27, AST 16, troponin 0.121 UA done showed large amount of leukocyte Estrace, urine WBC50 EKG done in the ER showed heart rate of , no ST segment elevation , T-wave inversions seen in 1 and aVL Chest x-ray done in the ER showed mild cardiomegaly and COPD Patient admitted to internal medicine service 09/08. Patient seen and examined. D-dimer was elevated, CT chest ordered with PE protocol. 2-D echo done showed EF of 30-35 % with inferior and inferolateral wall hypokinesis REVIEW OF SYSTEMS: CONSTITUTIONAL: No fever, no malaise,. CARDIOVASCULAR: No chest pain, no palpitations, no syncope. PULMONARY: No shortness of breath, no cough, GASTROINTESTINAL: No diarrhea, no nausea, no vomiting, no abdominal pain. NEUROLOGICAL: No headaches, no weakness, PHYSICAL EXAMINATION: GENERAL: The patient is alert and oriented x3, not in any acute distress. Well developed, well nourished. HEENT: Pupils are round and equally reacting to light. EOMI. No scleral icterus. No conjunctival pallor. Normocephalic, atraumatic. No pharyngeal erythema. No thyromegaly. CARDIOVASCULAR: S1 and S2 present. No murmurs, rubs, or gallops. PULMONARY: Chest is clear to auscultation, no wheezing or crackles. ABDOMEN: Soft, nontender, nondistended, normoactive bowel sounds. No palpable organomegaly. MUSCULOSKELETAL: No joint swelling or deformity. EXTREMITIES: No cyanosis, clubbing, or pedal edema. NEUROLOGICAL: Gross neurological examination did not reveal any focal deficits. SKIN: No rashes. Assessment and plan Syncope Cardiomyopathy Elevated troponin Hypertension Monitor vital signs Monitor CBC Monitor CMP Continue telemetry monitoring Trend troponin. 2-D echo done showed EF of 30-35 % with inferior and inferolateral wall hypokinesis CT head done showed no acute intracranial process. Ultrasound of carotids negative for any hemodynamically significant internal carotid stenosis D-dimer elevated, ordered CTA chest Ultrasound lower extremities negative for DVT EEG ordered Continue pharmacy dose heparin Cardiology following Neurology following In regards to hypertension, continue lisinopril and amlodipine Regards to hyperlipidemia continue Lipitor Labs and medication were reviewed.. Continue same treatment. Continue with symptomatic treatment. Resume home medication. Monitor labs and vitals. DVT and GI prophylaxis. Further recommendations as per clinical course of the patient Dictation was produced using [employer] dictation software. please excuse any gra mmatical, word or spelling errors. Objective - Vital Signs Vital signs: Vital Signs Temp 98.0 F 09/07/23 05:22 Pulse 77 09/08/23 04:00 Resp 18 09/08/23 04:00 BP 157/83 09/08/23 04:00 Pulse Ox 95 09/08/23 04:00 FiO2 Intake & Output 09/07/23 09/08/23 09/08/23 18:59 06:59 18:59 Intake Total 118 Balance 118 Weight 88.451 kg Intake: Oral 118 Other: Voiding Method Toilet Toilet # Voids 5 2 1 - Labs CBC & Chem 7: 09/07/23 05:44 09/06/23 20:42 Labs: Abnormal Lab Results - Last 24 Hours (Table) 09/07/23 Range/Units 13:14 D-Dimer 0.74 H (<0.60) mg/L FEU
--- NOTE | 2023-09-08 14:02 | CT ---
EXAMINATION TYPE: CT chest angio for PE DATE OF EXAM: 09/08/2023 COMPARISON: None HISTORY: Syncope, Elevated D-dimer CT DLP: 625.0 mGycm Automated exposure control for dose reduction was used. CONTRAST: CT Chest for pulmonary embolism performed with with IV Contrast, patient injected with 100 ml mL of I sovue 370. 3-D postprocessing was performed. FINDINGS: There is minimal honeycombing in the lung bases with mild bronchiectasis. There is no airspace/consol idative density or abnormal interstitial density. There is no pleural effusion, pleural thickening or pneumothorax. The great vessels the chest are normal is no mediastinal, hilar or axillary adenopathy. There are no filling defects within the pulmonary arteries or branches to indicate pulmonary embolism . The osseous structures are intact. Limited scanning the upper abdomen reveals no gross abnormality. IMPRESSION: 1. Mild chronic changes in the lung bases. 2. No evidence of pulmonary embolism. 3. No acute cardiopulmonary disease.
[2023-09-08] MEDS: SODIUM CHLORIDE 0.9% 1,000 ML IV SCH (16:07)
[2023-09-08] MEDS: ASPIRIN 81 MG PO SCH (20:26)
[2023-09-08] MEDS: lisinopriL 20 MG TAB PO SCH (20:26)
[2023-09-08] MEDS: HEPARIN SOD,PORK IN 0.45% NACL 25,000 UNIT in 0.45% NACL 1 250ML.BAG IV SCH (20:27)
--- NOTE | 2023-09-08 22:19 | EEG ---
ELECTROENCEPHALOGRAM REPORT PREAMBLE: This is a 72-year-old female presenting with syncope versus seizure. EEG FINDINGS: This is a 21-channel digital EEG recorded with video component, utilizing 10/20 international system with referential and bipolar montages. Background consists of well developed, well regulated moderate voltage activity in 9 hertz alpha. Background is posterior dominant and reactive to eye opening and closing. Photic driving response was seen with some flash frequencies. Mild drowsiness was seen with appearance of bilaterally symmetric theta frequency rhythm. Deeper stages of sleep were not seen. No focal or generalized epileptiform activity was seen. EKG channel showed arrhythmia. IMPRESSION: This is a normal awake and drowsy EEG. No focal, lateralized, or epileptiform activity was seen. EKG channel showed arrhythmia, correlate clinically. MMODL / IJN: [id number] / HERMINIA
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
[2023-09-09] MEDS: SODIUM CHLORIDE 0.9% 1,000 ML IV SCH ×2 (06:32→17:13)
[2023-09-09 08:30] LABS: African American GFR (CKD) >90 (>60 ml/min/1.73 sqM); Anion Gap 13 mmol/L; Blood Urea Nitrogen 23 mg/dL (7-17); Calcium 9.7 mg/dL (8.4-10.2); Carbon Dioxide 23 mmol/L (22-30); Chloride 105 mmol/L (98-107); Glucose 142 mg/dL (74-99); Non-African American GFR(CKD) >90 (>60 ml/min/1.73 sqM); Potassium 3.7 mmol/L (3.5-5.1); Sodium 141 mmol/L (137-145)
[2023-09-09] MEDS: ATORVASTATIN 40 MG TAB PO SCH (09:17)
[2023-09-09] MEDS: amLODIPine 10 MG TAB PO SCH (09:17)
[2023-09-09] MEDS: METOPROLOL SUCCINATE (ER) 25 MG TAB.ER.24H PO SCH (10:33)
[2023-09-09] MEDS ORDERED: NITROGLYCERIN SL TABS 0.4 MG TAB SUBLINGUAL PRN (12:33)
[2023-09-09] MEDS ORDERED: ALPRAZolam 0.5 MG TAB PO PRN (12:33)
[2023-09-09] MEDS ORDERED: ALPRAZolam 0.25 MG TAB PO PRN (12:33)
--- NOTE | 2023-09-09 12:33 | P.PN ---
Subjective HISTORY OF PRESENT ILLNESS: 09/08/23 This is a pleasant 72-year-old female patient history of hypertension, hyperlipidemia and previously diagnosed left bundle branch block. Presented to the emergency department after having an episode yesterday while standing up. Food of feeling as if she was given a pass out. She was nauseous became flushed and became briefly unresponsive according to family. EKG on admission showed sinus mechanism with left bundle branch block, troponins were abnormal but flat and not indicative of acute coronary syndrome. She's been feeling well since admission. She's had no further complaints of dizziness, lightheadedness, syncope or near syncopal episodes. Has had no chest discomfort and shortness of breath. She is maintaining sinus mechanism on the monitor. She had an EEG done this morning that is pending. D-dimer was elevated at 0.74 09/09/2023 Patient examined this morning at the bedside. Patient denies chest pain or pressure. She denies shortness of breath. Patient underwent CTA yesterday which was negative for pulmonary embolism. An echocardiogram completed revealing ejection fraction 30-35% with inferior and inferior lateral wall hypokinesia. The patient denies any history of cardiomyopathy or CAD. PHYSICAL EXAM: VITAL SIGNS: Reviewed. GENERAL: Well-developed in no acute distress. NECK: Supple. No JVD or thyromegaly LUNGS: Respirations even and unlabored. Lungs essentially clear to auscultation bilaterally. HEART: Regular rate and rhythm. S1 and S2 heard. EXTREMITIES: Normal range of motion. No clubbing or cyanosis. Peripheral pulses intact. No lower extremity edema ASSESSMENT: Syncope, possibly vasovagal Elevated d-dimer, CT negative for pulmonary embolism New-onset cardiomyopathy, 30-35%, ischemic versus nonischemic Left bundle-branch block Hypertension Hyperlipidemia PLAN: Discontinue IV heparin. Begin subcu heparin Continue aspirin, atorvastatin, and lisinopril Add metoprolol succinate 25 mg daily Discontinue amlodipine Nothing by mouth midnight Patient to undergo cardiac catheterization tomorrow with Dr. Morris Further recommendations pending patient's course Nurse practitioner note has been reviewed by physician. Signing provider agrees with the documented findings, assessment, and plan of care. Objective - Vital Signs Vital signs: Vital Signs Temp 97.7 F 09/09/23 08:00 Pulse 77 09/09/23 08:00 Resp 18 09/09/23 08:00 BP 153/74 09/09/23 08:00 Pulse Ox 97 09/09/23 08:00 FiO2 Intake & Output 09/08/23 09/09/23 09/09/23 18:59 06:59 18:59 Intake Total 598 10 118 Balance 598 10 118 Intake: IV 10 0.9 10 Oral 598 118 Other: Voiding Method Toilet Toilet # Voids 2 1 - Labs CBC & Chem 7: 09/07/23 05:44 09/09/23 07:40 Labs: Abnormal Lab Results - Last 24 Hours (Table) 09/09/23 09/09/23 Range/Units 07:40 07:40 APTT 42.5 H (22.0-30.0) sec BUN 23 H (7-17) mg/dL Glucose 142 H (74-99) mg/dL
--- NOTE | 2023-09-09 14:19 | P.PN ---
Subjective Progress Note Date: 09/09/23 patient 72-year-old lady with past medical history significant for hypertension, hyperlipidemia who presented to the ER for altered mental status and presyncopal event. Patient stated that she was all right yesterday when while cooking in the kitchen she suddenly felt as if she will pass out. Patient sat on the chair and the next thing patient daughter noticed that she had a burning of her eyes she stopped responding to questions. There was no noticeable jerking movements of any extremity. Patient did lose control over her urine. There was no complain of any tongue biting. Patient was passed out for approximately 2 minutes, patient does state that at that time she does remember that people were talking over her but she had no strength to respond to the questions. Following that event, patient was back to her normal self. Patient was brought to the ER Initial lab work done in the ER showed WBC 10, hemoglobin 14.8, platelet count 379, sodium 141, potassium 3.6, BUN/creatinine, creatinine 0.77, glucose 108, AST 27, AST 16, troponin 0.121 UA done showed large amount of leukocyte Estrace, urine WBC50 EKG done in the ER showed heart rate of , no ST segment elevation , T-wave inversions seen in 1 and aVL Chest x-ray done in the ER showed mild cardiomegaly and COPD Patient admitted to internal medicine service 09/08. Patient seen and examined. D-dimer was elevated, CT chest ordered with PE protocol. 2-D echo done showed EF of 30-35 % with inferior and inferolateral wall hypokinesis. 09/09. Patient seen and examined. Denies any chest pain. Denies any shortness of breath at rest, get short of breath on exertion. Cardiology discussed with patient, planning cardiac catheter in the morning. REVIEW OF SYSTEMS: CONSTITUTIONAL: No fever, no malaise,. CARDIOVASCULAR: No chest pain, no palpitations, no syncope. PULMONARY: No shortness of breath, no cough, GASTROINTESTINAL: No diarrhea, no nausea, no vomiting, no abdominal pain. NEUROLOGICAL: No headaches, no weakness, PHYSICAL EXAMINATION: GENERAL: The patient is alert and oriented x3, not in any acute distress. Well developed, well nourished. HEENT: Pupils are round and equally reacting to light. EOMI. No scleral icterus. No conjunctival pallor. Normocephalic, atraumatic. No pharyngeal erythema. No thyromegaly. CARDIOVASCULAR: S1 and S2 present. No murmurs, rubs, or gallops. PULMONARY: Chest is clear to auscultation, no wheezing or crackles. ABDOMEN: Soft, nontender, nondistended, normoactive bowel sounds. No palpable organomegaly. MUSCULOSKELETAL: No joint swelling or deformity. EXTREMITIES: No cyanosis, clubbing, or pedal edema. NEUROLOGICAL: Gross neurological examination did not reveal any focal deficits. SKIN: No rashes. Assessment and plan Syncope Cardiomyopathy Elevated troponin Hypertension Monitor vital signs Monitor CBC Monitor CMP Continue telemetry monitoring Trend troponin. 2-D echo done showed EF of 30-35 % with inferior and inferolateral wall hypokinesis CT head done showed no acute intracranial process. Ultrasound of carotids negative for any hemodynamically significant internal carotid stenosis CTA chest negative for PE Ultrasound lower extremities negative for DVT EEG negative for seizure like activity Cardiology following, planning cardiac cath in the morning Neurology following In regards to hypertension, continue lisinopril and metoprolol Regards to hyperlipidemia continue Lipitor Labs and medication were reviewed.. Continue same treatment. Continue with sy mptomatic treatment. Resume home medication. Monitor labs and vitals. DVT and GI prophylaxis. Further recommendations as per clinical course of the patient Dictation was produced using [employer] dictation software. please excuse any grammatical, word or spelling errors. Objective - Vital Signs Vital signs: Vital Signs Temp 97.6 F 09/09/23 04:00 Pulse 72 09/09/23 04:00 Resp 18 09/09/23 04:00 BP 137/71 09/09/23 04:00 Pulse Ox 95 09/09/23 04:00 FiO2 Intake & Output 09/08/23 09/09/23 09/09/23 18:59 06:59 18:59 Intake Total 598 10 118 Balance 598 10 118 Intake: IV 10 0.9 10 Oral 598 118 Other: Voiding Method Toilet Toilet # Voids 2 1 - Labs CBC & Chem 7: 09/07/23 05:44 09/09/23 07:40 Labs: Abnormal Lab Results - Last 24 Hours (Table) 09/08/23 09/09/23 09/09/23 Range/Units 10:21 07:40 07:40 APTT 44.9 H 42.5 H (22.0-30.0) sec BUN 23 H (7-17) mg/dL Glucose 142 H (74-99) mg/dL
[2023-09-09] MEDS: HEPARIN SODIUM,PORCINE 5,000 UNIT/ML 1 ML VIAL SQ SCH (17:14)
[2023-09-09] MEDS: SODIUM CHLORIDE 0.9% 1,000 ML in EMPTY BAG 1 BAG IV SCH (20:16)
[2023-09-09] MEDS: ASPIRIN 81 MG PO SCH (20:16)
[2023-09-09] MEDS: lisinopriL 20 MG TAB PO SCH (20:16)
[2023-09-10] MEDS: HEPARIN SODIUM,PORCINE 5,000 UNIT/ML 1 ML VIAL SQ SCH ×3 (00:18→17:16)
[2023-09-10] MEDS ORDERED: ATORVASTATIN 80 MG TAB PO ONE (05:00)
[2023-09-10] MEDS ORDERED: ASPIRIN 325 MG TAB PO ONE (05:00)
[2023-09-10] MEDS: SODIUM CHLORIDE 0.9% 1,000 ML in EMPTY BAG 1 BAG IV SCH (06:05)
[2023-09-10] MEDS: SODIUM CHLORIDE 0.9% 1,000 ML IV SCH (06:11)
[2023-09-10] MEDS ORDERED: HEPARIN SODIUM,PORCINE (1 ML) 2,500 UNIT in SODIUM CHLORIDE 0.9% 250 ML IRRIGATION PRN (07:00)
[2023-09-10] MEDS ORDERED: HEPARIN SODIUM,PORCINE 10,000 UNIT in SODIUM CHLORIDE 0.9% 1,000 ML IRRIGATION PRN (07:00)
[2023-09-10] MEDS: ATORVASTATIN 40 MG TAB PO SCH (08:28)
[2023-09-10] MEDS: METOPROLOL SUCCINATE (ER) 25 MG TAB.ER.24H PO SCH ×2 (08:28→20:25)
[2023-09-10] MEDS: lisinopriL 20 MG TAB PO SCH ×2 (08:28→20:25)
[2023-09-10] MEDS ORDERED: VERAPAMIL 2.5 MG/ML 2 ML AMP ONE (08:31)
[2023-09-10] MEDS ORDERED: HEPARIN SODIUM 1,000 UN/ML (10ML VL) ONE (09:00)
[2023-09-10] MEDS ORDERED: fentaNYL (PF) 50 MCG/ML 2 ML AMP ONE (09:01)
[2023-09-10 09:02] LABS: African American GFR (CKD) >90 (>60 ml/min/1.73 sqM); Anion Gap 13 mmol/L; Blood Urea Nitrogen 17 mg/dL (7-17); Calcium 9.3 mg/dL (8.4-10.2); Carbon Dioxide 23 mmol/L (22-30); Chloride 106 mmol/L (98-107); Glucose 100 mg/dL (74-99); Non-African American GFR(CKD) >90 (>60 ml/min/1.73 sqM); Potassium 3.6 mmol/L (3.5-5.1); Sodium 142 mmol/L (137-145)
[2023-09-10] MEDS ORDERED: IV FLUID CONTINUATION 1,000 ML IV ONE (09:15)
[2023-09-10] MEDS ORDERED: methylPREDNISolone SOD SUCCI 125 MG/2 ML VIAL IV ONE (09:17)
[2023-09-10] MEDS ORDERED: diphenhydrAMINE 50 MG/ML 1 ML VIAL IVP ONE (09:17)
[2023-09-10] MEDS ORDERED: diphenhydrAMINE 50 MG/ML 1 ML VIAL ONE (09:19)
[2023-09-10] MEDS ORDERED: fentaNYL (PF) 50 MCG/ML 2 ML AMP IVP ONE (09:19)
[2023-09-10] MEDS ORDERED: methylPREDNISolone SOD SUCCI 125 MG/2 ML VIAL ONE (09:19)
[2023-09-10] MEDS ORDERED: MIDAZOLAM 2 MG/2 ML VIAL IVP ONE (09:19)
[2023-09-10] MEDS ORDERED: LIDOCAINE 1% INJ 10MG/ML (20 ML MDV) SQ ONE (09:19)
[2023-09-10] MEDS ORDERED: VERAPAMIL SYRINGE (5 MG/10 ML) INTRAARTER ONE (09:22)
[2023-09-10] MEDS: HEPARIN SODIUM 1,000 UN/ML (10ML VL) IV ONE ×2 (09:27→09:58)
[2023-09-10] MEDS: IOPAMIDOL-370 100ML BTL INJ ONE ×2 (09:50→10:11)
[2023-09-10] MEDS ORDERED: CLOPIDOGREL 75 MG TAB ONE (09:55)
[2023-09-10] MEDS ORDERED: CLOPIDOGREL 75 MG TAB PO ONE (09:58)
[2023-09-10] MEDS ORDERED: NITROGLYCERIN OINT 1 INCH/GM PACKET TOPICAL ONE (10:03)
[2023-09-10] MEDS ORDERED: MAG HYDROX/AL HYDROX/SIMETH 30 ML CUP PO PRN (10:29)
[2023-09-10] MEDS ORDERED: RX INFO: IV CONTRAST WAS GIVEN 1 EACH MISC MISCELLANE PRN (10:29)
[2023-09-10] MEDS ORDERED: ZOLPIDEM 5 MG TAB PO PRN (10:29)
[2023-09-10] MEDS ORDERED: NITROGLYCERIN SL TABS 0.4 MG TAB SUBLINGUAL PRN (10:29)
[2023-09-10] MEDS ORDERED: ATROPINE SULFATE 0.1 MG/ML 10ML SYRINGE IV PRN (10:29)
[2023-09-10] MEDS ORDERED: SODIUM CHLORIDE 0.9% 1,000 ML in EMPTY BAG 1 BAG IV SCH (10:30)
--- NOTE | 2023-09-10 10:36 | P.CARDCATH ---
Date of Procedure: 09/10/23 Description of Procedure: PERCUTANEOUS TRANSLUMINAL CORONARY ANGIOPLASTY CLINICAL INFORMATION: The patient is a 72-year-old female with history of hypertension who presented with presyncope and minimal troponin elevation. She had evidence of cardiomyopathy on the echocardiogram with segmental wall motion abnormality. Her baseline EKG showed left bundle branch block. She underwent cardiac catheterization by Dr. Morris that showed severe obstructive disease involving the proximal LAD. Recommendations were made regarding angioplasty and stenting. The procedure as well as the risks and the complications were discussed with the patient who was in full understanding and agreement. PROCEDURE: A 6 Greek FL 3.5 guiding catheter was introduced into the system. After cannulating the left main, a 0.014 BMW J wire was advanced across the lesion and positioned distally. Following that a 2.5 x 12 mm NC Treck balloon was advanced and inflated at 8 atmosphere. After removing the balloon a From [employer] Bench eye IVUS catheter was advanced and imaging were obtained. Following that a 3.25 X23 mm [facility] stent was deployed. It was dilated at 16 josh. Repeat IVUS imaging was obtained and subsequently a 3.5X12 mm NC Treck was advanced and one inflation at the proximal segment at 10 josh was done. After the last inflation, after appropriate wait, the balloon and the guidewire were withdrawn back into the guiding catheter. Images were obtained and repeated. Those images reveal stable successful stenting. At that point, the guiding catheter, the balloon, and guidewire were removed. The sheath was removed. Hemostasis was obtained with the performing of a TR band. There were no immed iate complications. The patient was returned to the room in stable condition. Of note, the patient received additional 2000 units of heparin as well as Plavix. His ACT was followed. There was no immediate complications. She had chest discomfort that resolved at the end of the procedure RESULTS: Successful stenting of the proximal LAD with reduction of stenosis from 90 % to 0 % with intravascular ultrasound imaging. RECOMMENDATIONS: The patient will continue on dual antiplatelet treatment with aspirin and clopidogrel for one year in addition to aggressive coronary risks modification an attempt to maintain LDL below 70 mg/dL The findings and recommendations were discussed with the patient and she was in full understanding and agreement. Duration of sedation: 28 minutes
[2023-09-10] MEDS ORDERED: IOPAMIDOL-370 100ML BTL INJ ONE (10:37)
--- NOTE | 2023-09-10 11:25 | CC ---
CARDIAC CATHETERIZATION REPORT INDICATIONS: Ischemic cardiomyopathy. PROCEDURE NOTE: After obtaining informed consent, left heart catheterization and coronary angiogram were performed via the right radial artery using standard Chaz catheters. The patient tolerated the procedure well without any obvious immediate complications. The patient received moderate conscious sedation. Total sedation time was 23 minutes. She had IV dye allergy and had received Benadryl and Solu-Medrol in the lab. Right radial artery access was obtained using Seldinger technique, 6-English sheath was placed. Catheters and wires were floated into the ascending aorta under fluoroscopic guidance. The patient received verapamil and heparin per protocol. FINDINGS: 1. Hemodynamics: Left ventricular end-diastolic pressure is 16 mm, there is no significant gradient across the aortic valve. 2. Left Ventriculogram: Left ventriculogram is not performed. 3. Angiographic Data: a.Right coronary artery: Right coronary artery is a large dominant vessel that shows mild nonobstructive CAD. Left main coronary artery is a short vessel, appears calcified, but is free of significant disease, divides into left anterior descending coronary artery and circumflex coronary artery. Circumflex coronary artery has mild nonobstructive CAD. Mid LAD shows a focal 80% to 90% stenosis. The lesion is noted both just before and just after the diagonal branch. CONCLUSION: Severe 1-vessel coronary artery disease in a patient with ischemic cardiomyopathy and worsening LV function. PLAN: Dr. Bauman, the on-call radiology special procedure tech, reviewed the angiographic data and will perform angioplasty of the LAD. MMODL / IJN: [id number] /
--- NOTE | 2023-09-10 13:07 | P.PN ---
Subjective Progress Note Date: 09/10/23 patient 72-year-old lady with past medical history significant for hypertension, hyperlipidemia who presented to the ER for altered mental status and presyncopal event. Patient stated that she was all right yesterday when while cooking in the kitchen she suddenly felt as if she will pass out. Patient sat on the chair and the next thing patient daughter noticed that she had a burning of her eyes she stopped responding to questions. There was no noticeable jerking movements of any extremity. Patient did lose control over her urine. There was no complain of any tongue biting. Patient was passed out for approximately 2 minutes, patient does state that at that time she does remember that people were talking over her but she had no strength to respond to the questions. Following that event, patient was back to her normal self. Patient was brought to the ER Initial lab work done in the ER showed WBC 10, hemoglobin 14.8, platelet count 379, sodium 141, potassium 3.6, BUN/creatinine, creatinine 0.77, glucose 108, AST 27, AST 16, troponin 0.121 UA done showed large amount of leukocyte Estrace, urine WBC50 EKG done in the ER showed heart rate of , no ST segment elevation , T-wave inversions seen in 1 and aVL Chest x-ray done in the ER showed mild cardiomegaly and COPD Patient admitted to internal medicine service 09/08. Patient seen and examined. D-dimer was elevated, CT chest ordered with PE protocol. 2-D echo done showed EF of 30-35 % with inferior and inferolateral wall hypokinesis. 09/09. Patient seen and examined. Denies any chest pain. Denies any shortness of breath at rest, get short of breath on exertion. Cardiology discussed with patient, planning cardiac catheter in the morning. 09/10. Patient seen and examined. Denies any chest pain. Currently nothing by mouth, going for cardiac cath today. REVIEW OF SYSTEMS: CONSTITUTIONAL: No fever, no malaise,. CARDIOVASCULAR: No chest pain, no palpitations, no syncope. PULMONARY: No shortness of breath, no cough, GASTROINTESTINAL: No diarrhea, no nausea, no vomiting, no abdominal pain. NEUROLOGICAL: No headaches, no weakness, PHYSICAL EXAMINATION: GENERAL: The patient is alert and oriented x3, not in any acute distress. Well developed, well nourished. HEENT: Pupils are round and equally reacting to light. EOMI. No scleral icterus. No conjunctival pallor. Normocephalic, atraumatic. No pharyngeal erythema. No thyromegaly. CARDIOVASCULAR: S1 and S2 present. No murmurs, rubs, or gallops. PULMONARY: Chest is clear to auscultation, no wheezing or crackles. ABDOMEN: Soft, nontender, nondistended, normoactive bowel sounds. No palpable organomegaly. MUSCULOSKELETAL: No joint swelling or deformity. EXTREMITIES: No cyanosis, clubbing, or pedal edema. NEUROLOGICAL: Gross neurological examination did not reveal any focal deficits. SKIN: No rashes. Assessment and plan Syncope Cardiomyopathy Elevated troponin Hypertension Monitor vital signs Monitor CBC Monitor CMP Continue telemetry monitoring Trend troponin. 2-D echo done showed EF of 30-35 % with inferior and inferolateral wall hypokinesis CT head done showed no acute intracranial process. Ultrasound of carotids negative for any hemodynamically significant internal carotid stenosis CTA chest negative for PE Ultrasound lower extremities negative for DVT EEG negative for seizure like activity Cardiology following, planning cardiac cath today, currently nothing by mouth Neurology following In regards to hypertension, continue lisinopril and metoprolol Regards to hyperlipidemia continue Lipitor Labs and medication were reviewed.. Continue same treatment. Continue with symptomatic treatment. Resume home medication. Monitor labs and vitals. DVT and GI prophylaxis. Further recommendations as per clinical course of the patient Dictation was produced using [employer] dictation software. please excuse any grammatical, word or spelling errors. Objective - Vital Signs Vital signs: Vital Signs Temp 97.9 F 09/09/23 20:00 Pulse 68 09/10/23 08:26 Resp 18 09/10/23 08:26 BP 144/94 09/10/23 08:26 Pulse Ox 96 09/10/23 08:26 FiO2 Intake & Output 09/09/23 09/10/23 09/10/23 18:59 06:59 18:59 Intake Total 236 540 Balance 236 540 Intake: Oral 236 540 Other: Voiding Method Toilet Toilet # Voids 3 3 - Labs CBC & Chem 7: 09/07/23 05:44 09/10/23 07:18 Labs: Abnormal Lab Results - Last 24 Hours (Table) 09/10/23 Range/Units 07:18 Creatinine 0.42 L (0.52-1.04) mg/dL Glucose 100 H (74-99) mg/dL
[2023-09-10 14:14] VITALS: BMI 34.5
[2023-09-10] MEDS: ASPIRIN 81 MG PO SCH (20:25)
[2023-09-10] MEDS ORDERED: ACETAMINOPHEN TAB 325 MG TAB PO PRN (22:01)
[2023-09-11] MEDS: SODIUM CHLORIDE 0.9% 1,000 ML IV SCH ×2 (00:07→09:15)
[2023-09-11] MEDS: HEPARIN SODIUM,PORCINE 5,000 UNIT/ML 1 ML VIAL SQ SCH ×2 (00:19→09:14)
[2023-09-11 01:06] VITALS: RESP 17
[2023-09-11 08:02] LABS: African American GFR (CKD) >90 (>60 ml/min/1.73 sqM); Anion Gap 10 mmol/L; Blood Urea Nitrogen 29 mg/dL (7-17); Calcium 9.5 mg/dL (8.4-10.2); Carbon Dioxide 25 mmol/L (22-30); Chloride 105 mmol/L (98-107); Glucose 119 mg/dL (74-99); Non-African American GFR(CKD) >90 (>60 ml/min/1.73 sqM); Potassium 3.7 mmol/L (3.5-5.1); Sodium 140 mmol/L (137-145)
[2023-09-11] MEDS ORDERED: CLOPIDOGREL 75 MG TAB PO SCH (09:00)
[2023-09-11] MEDS ORDERED: ASPIRIN 81 MG PO SCH (09:00)
[2023-09-11] MEDS: ATORVASTATIN 40 MG TAB PO SCH (09:14)
[2023-09-11] MEDS: lisinopriL 20 MG TAB PO SCH (09:15)
[2023-09-11] MEDS: METOPROLOL SUCCINATE (ER) 25 MG TAB.ER.24H PO SCH (09:15)
[2023-09-11 09:31] VITALS: BP 144/79; PULSE 74; TEMP 97.4
--- NOTE | 2023-09-11 12:20 | P.PN ---
Subjective HISTORY OF PRESENT ILLNESS: 09/08/23 This is a pleasant 72-year-old female patient history of hypertension, hyperlipidemia and previously diagnosed left bundle branch block. Presented to the emergency department after having an episode yesterday while standing up. Food of feeling as if she was given a pass out. She was nauseous became flushed and became briefly unresponsive according to family. EKG on admission showed sinus mechanism with left bundle branch block, troponins were abnormal but flat and not indicative of acute coronary syndrome. She's been feeling well since admission. She's had no further complaints of dizziness, lightheadedness, syncope or near syncopal episodes. Has had no chest discomfort and shortness of breath. She is maintaining sinus mechanism on the monitor. She had an EEG done this morning that is pending. D-dimer was elevated at 0.74 09/09/2023 Patient examined this morning at the bedside. Patient denies chest pain or pressure. She denies shortness of breath. Patient underwent CTA yesterday which was negative for pulmonary embolism. An echocardiogram completed revealing ejection fraction 30-35% with inferior and inferior lateral wall hypokinesia. The patient denies any history of cardiomyopathy or CAD. 09/11/2023 Patient is status post cardiac catheterization with stenting of the proximal LAD with reduction of stenosis from 90% to 0%. Patient examined this morning. She is sitting up in the chair. She denies any chest pain or pressure. She denies any shortness of breath. She has been up ambulating in her room without difficulty. Vital signs are stable. PHYSICAL EXAM: VITAL SIGNS: Reviewed. GENERAL: Well-developed in no acute distress. NECK: Supple. No JVD or thyromegaly LUNGS: Respirations even and unlabored. Lungs essentially clear to auscultation bilaterally. HEART: Regular rate and rhythm. S1 and S2 heard. EXTREMITIES: Normal range of motion. No clubbing or cyanosis. Peripheral pulses intact. No lower extremity edema ASSESSMENT: Syncope, possibly vasovagal Elevated d-dimer, CT negative for pulmonary embolism New-onset cardiomyopathy, 30-35%, ischemic Status post cardiac catheterization with stenting of the proximal LAD Left bundle-branch block Hypertension Hyperlipidemia PLAN: Continue current cardiac medications Patient is currently stable for discharge home today from a cardiac standpoint She is to follow up in the office post discharge Nurse practitioner note has been reviewed by physician. Signing provider agrees with the documented findings, assessment, and plan of care. Objective - Vital Signs Vital signs: Vital Signs Temp 97.4 F L 09/11/23 09:11 Pulse 74 09/11/23 09:11 Resp 17 09/11/23 09:11 BP 144/79 09/11/23 09:11 Pulse Ox 95 09/11/23 09:11 FiO2 Intake & Output 09/10/23 09/11/23 09/11/23 18:59 06:59 18:59 Intake Total 636 Output Total 60 Balance 636 -60 Weight 88.451 kg Intake: IV 400 Oral 236 Output: Urine 60 Other: Voiding Method Toilet Toilet # Voids 2 1 - Labs CBC & Chem 7: 09/07/23 05:44 09/11/23 07:29 Labs: Abnormal Lab Results - Last 24 Hours (Table) 09/11/23 Range/Units 07:29 BUN 29 H (7-17) mg/dL Glucose 119 H (74-99) mg/dL
--- NOTE | 2023-09-11 12:47 | P.DS ---
Providers Date of admission: 09/09/23 10:38 Expected date of discharge: 09/11/23 Attending physician: Chadwick Stewart MD Consults: 09/06/23 22:26 Consult Physician Urgent Consulting Provider: Leah Tyson Consult Reason/Comments: NSTEMI Do you want consulting provider notified?: Yes 09/07/23 06:32 Consult Physician Routine Consulting Provider: Rodney Corona Reason/Comments: AMS Do you want consulting provider notified?: Yes 09/10/23 10:29 Consult Physician Routine Consulting Provider: Leah Tyson Consult Reason/Comments: Post Interventional Patient Do you want consulting provider notified?: Already Contacted Primary care physician: Jasson Morales [facility] Course: Discharge diagnoses; Status post cardiac catheterization with stenting of the proximal LAD Syncope Cardiomyopathy Elevated troponin Left bundle-branch block Hypertension Hyperlipidemia Hospital course; patient 72-year-old lady with past medical history significant for hypertension, hyperlipidemia who presented to the ER for altered mental status and presyncopal event. Patient stated that she was all right yesterday when while cooking in the kitchen she suddenly felt as if she will pass out. Patient sat on the chair and the next thing patient daughter noticed that she had a burning of her eyes she stopped responding to questions. There was no noticeable jerking m ovements of any extremity. Patient did lose control over her urine. There was no complain of any tongue biting. Patient was passed out for approximately 2 minutes, patient does state that at that time she does remember that people were talking over her but she had no strength to respond to the questions. Following that event, patient was back to her normal self. Patient was brought to the ER Initial lab work done in the ER showed WBC 10, hemoglobin 14.8, platelet count 379, sodium 141, potassium 3.6, BUN/creatinine, creatinine 0.77, glucose 108, AST 27, AST 16, troponin 0.121 UA done showed large amount of leukocyte Estrace, urine WBC50 EKG done in the ER showed heart rate of , no ST segment elevation , T-wave inversions seen in 1 and aVL Chest x-ray done in the ER showed mild cardiomegaly and COPD Patient admitted to internal medicine service 09/08. Patient seen and examined. D-dimer was elevated, CT chest ordered with PE protocol. 2-D echo done showed EF of 30-35 % with inferior and inferolateral wall hypokinesis. 09/09. Patient seen and examined. Denies any chest pain. Denies any shortness of breath at rest, get short of breath on exertion. Cardiology discussed with patient, planning cardiac catheter in the morning. 09/10. Patient seen and examined. Denies any chest pain. Currently nothing by mouth, going for cardiac cath today. 09/11. Patient seen and examined. Status post cardiac cath uccessful stenting of the proximal LAD with reduction of stenosis from 90 % to 0 % with intravascular ultrasound imaging. Being discharged on Plavix, continue rest of home meds. PHYSICAL EXAMINATION: GENERAL: The patient is alert and oriented x3, not in any acute distress. Well developed, well nourished. HEENT: Pupils are round and equally reacting to light. EOMI. No scleral icterus. No conjunctival pallor. Normocephalic, atraumatic. No pharyngeal erythema. No thyromegaly. CARDIOVASCULAR: S1 and S2 present. No murmurs, rubs, or gallops. PULMONARY: Chest is clear to auscultation, no wheezing or crackles. ABDOMEN: Soft, nontender, nondistended, normoactive bowel sounds. No palpable organomegaly. MUSCULOSKELETAL: No joint swelling or deformity. EXTREMITIES: No cyanosis, clubbing, or pedal edema. NEUROLOGICAL: Gross neurological examination did not reveal any focal deficits. SKIN: No rashes. Dictation was produced using [employer] dictation software. please excuse any grammatical, word or spelling errors. Patient Condition at Discharge: Good Plan - Discharge Summary New Discharge Prescriptions: New Atorvastatin [Lipitor] 40 mg PO DAILY #90 tab Nitroglycerin Sl Tabs [Nitrostat] 0.4 mg SUBLINGUAL Q5M PRN #100 tab PRN Reason: Chest Pain Metoprolol Succinate (ER) [Toprol XL] 25 mg PO BID #60 tab Clopidogrel [Plavix] 75 mg PO DAILY 30 Days #30 tab lisinopriL [Zestril] 20 mg PO BID #60 tab Continue Aspirin EC [Ecotrin Low Dose] 81 mg PO HS Discontinued Pravastatin Sodium [Pravachol] 20 mg PO HS Metoprolol Tartrate [Lopressor] 50 mg PO HS amLODIPine [Norvasc] 10 mg PO HS lisinopriL [Zestril] 20 mg PO HS Discharge Medication List Aspirin EC [Ecotrin Low Dose] 81 mg PO HS 12/02/17 [History] Atorvastatin [Lipitor] 40 mg PO DAILY #90 tab 09/11/23 [Rx] Clopidogrel [Plavix] 75 mg PO DAILY 30 Days #30 tab 09/11/23 [Rx] Metoprolol Succinate (ER) [Toprol XL] 25 mg PO BID #60 tab 09/11/23 [Rx] Nitroglycerin Sl Tabs [Nitrostat] 0.4 mg SUBLINGUAL Q5M PRN #100 tab 09/11/23 [Rx] lisinopriL [Zestril] 20 mg PO BID #60 tab 09/11/23 [Rx] Follow up Appointment(s)/Referral(s): José Antonio Damian MD [STAFF PHYSICIAN] - 09/21/23 9:00 am Jasson Morales [Primary Care Provider] - 1-2 days Patient Instructions/Handouts: Heart Attack (DC), Heart Catheterization (DC) Discharge Disposition: HOME SELF-CARE
== END 2023-09-11 13:03 | disposition home or self-care (01) | DRG 322 ==
LOC: EC 19:45 → 3SCARD 22:57 → OBSVTOIN 09-09 10:38
PROVIDERS: ADMIT Internal Medicine; ATTEND Internal Medicine
PROC: 4A023N7 Measurement of Cardiac Sampling and Pressure, Left Heart, Percutaneous Approach (ICD-10-PCS; principal; 2023-09-10 09:00)
PROC: B2111ZZ Fluoroscopy of Multiple Coronary Arteries using Low Osmolar Contrast (ICD-10-PCS; principal; 2023-09-10 09:00)
PROC: 027034Z Dilation of Coronary Artery, One Artery with Drug-eluting Intraluminal Device, Percutaneous Approach (ICD-10-PCS; 2023-09-10 09:00)
DX: I25.10 Atherosclerotic heart disease of native coronary artery without angina pectoris (principal); I25.5 Ischemic cardiomyopathy; I48.91 Unspecified atrial fibrillation; E78.5 Hyperlipidemia, unspecified; J44.9 Chronic obstructive pulmonary disease, unspecified; I10 Essential (primary) hypertension; I44.7 Left bundle-branch block, unspecified; R79.1 Abnormal coagulation profile; R79.89 Other specified abnormal findings of blood chemistry; I34.0 Nonrheumatic mitral (valve) insufficiency; I49.9 Cardiac arrhythmia, unspecified; R73.03 Prediabetes; Z91.041 Radiographic dye allergy status; Z79.899 Other long term (current) drug therapy; Z79.82 Long term (current) use of aspirin; Z28.310 Unvaccinated for COVID-19
CPT/HCPCS: 36415; 70450; 71046; 71275; 80048; 80053; 80061; 81001; 82607; 82746; 83036; 83735; 84484; 85025; 85379; 85610; 85730; 92978; 93005; 93306; 93458; 93880; 93970; 95816; 96365; 96366; 96375; 99285

== ENCOUNTER 2024-04-19 07:00 | Day surgery (SDC) | payer MEDICARE ==
[2024-04-19] MEDS ORDERED: LIDOCAINE 1% INJ 10MG/ML (20 ML MDV) ONE ×5 (07:24→08:25)
[2024-04-19] MEDS ORDERED: fentaNYL (PF) 50 MCG/ML 2 ML AMP ONE (07:24)
[2024-04-19] MEDS ORDERED: DEXAMETHASONE SOD PHOSPHATE 10 MG/ML 1 ML VIAL ONE (07:24)
[2024-04-19] MEDS ORDERED: MIDAZOLAM 2 MG/2 ML VIAL ONE (07:24)
[2024-04-19] MEDS ORDERED: PROPOFOL 10 MG/ML 20 ML VIAL IV ONE (07:24)
[2024-04-19] MEDS ORDERED: diphenhydrAMINE 50 MG/ML 1 ML VIAL ONE (07:24)
[2024-04-19] MEDS ORDERED: SODIUM CHLORIDE 0.9% 50 ML BAG IV ONE (08:10)
[2024-04-19] MEDS ORDERED: ceFAZolin 10 GM VIAL IVPB ONE (08:10)
[2024-04-19] MEDS ORDERED: VANCOMYCIN 1,000 MG VIAL ONE (08:10)
[2024-04-19] MEDS ORDERED: LACTATED RINGERS 1,000 ML BAG ONE (08:10)
[2024-04-19] MEDS ORDERED: SODIUM CHLORIDE 0.9% 250 ML BAG ONE (08:10)
--- NOTE | 2024-05-30 13:16 | XR ---
Site ID [facility] Patient Alicia Lemons, Jerrod ID [id number] Age/Gender: 73Y, F Order # N/A Procedure 2V CXR Date 04/19/2024 12:55:00 PM EXAMINATION TYPE: Chest X-ray 2 Views DATE OF EXAM: 05/07/2024 6:49 PM COMPARISON: Chest radiographs from 09/06/2023, CTA chest 09/08/2023 TECHNIQUE: Chest X-ray 2 Views Frontal and lateral views of the chest. Delayed interpretation due to institutional cyber attack. CLINICAL INDICATION: Female, 73 year old with history of lead placement; FINDINGS: Lungs/Pleura: There is no evidence of pleural effusion, focal consolidation, or pneumothorax. Pulmonary vascularity: Unremarkable. Heart/mediastinum: Cardiomediastinal silhouette is enlarged and stable. Three lead cardiac conduction device overlying the left hemithorax with lead tips projecting over the right ventricle, right atriu m and coronary sinus. Musculoskeletal: No acute osseous pathology. Multilevel degenerative disc disease. IMPRESSION: Three lead cardiac conduction device overlying the left hemithorax with lead tips projecting over the right ventricle, right atrium and coronary sinus.
== END 2024-04-19 15:17 ==
LOC: CATHEP 07:00
PROVIDERS: ATTEND Internal Medicine Clinical Cardiac Electrophysiology
DX: I25.10 Atherosclerotic heart disease of native coronary artery without angina pectoris (principal); I10 Essential (primary) hypertension; E78.5 Hyperlipidemia, unspecified; I25.5 Ischemic cardiomyopathy; E87.6 Hypokalemia; Z79.02 Long term (current) use of antithrombotics/antiplatelets; Z79.82 Long term (current) use of aspirin; Z79.899 Other long term (current) drug therapy
CPT/HCPCS: 33225; 33249; 71046; 80053; 84443; 85025

== ENCOUNTER 2024-05-09 13:05 | Inpatient (IN) | payer MEDICARE ==
--- NOTE | 2024-05-09 13:23 | ED ---
General Adult HPI - General Stated complaint: abd pain Time Seen by Provider: 05/09/24 13:09 Source: patient, EMS, RN notes reviewed, old records reviewed Limitations: no limitations - History of Present Illness Initial comments: 73-year-old female presenting with 3 weeks of lower abdominal pain, predomi nantly on the right-hand side. Patient states she has had some associated nausea without vomiting. She has had chills without measured fever. She states she has had normal bowel movements. Pain has been persistent for the past 3 weeks. Pain. No respiratory symptoms. Patient does report some urinary frequency. - Related Data Home Medications Medication Instructions Recorded Confirmed Aspirin EC [Ecotrin Low Dose] 81 mg PO HS 12/02/17 05/09/24 Empagliflozin [Jardiance] 10 mg PO DAILY 04/15/24 05/09/24 Spironolactone 25 mg PO DAILY 04/15/24 05/09/24 Metoprolol Succinate (ER) [Toprol 25 mg PO DAILY 05/09/24 05/09/24 XL] Nitroglycerin Sl Tabs [Nitrostat] 0.4 mg SL Q5M PRN 05/09/24 05/09/24 Previous Rx's Medication Instructions Recorded Atorvastatin [Lipitor] 40 mg PO DAILY #90 tab 09/11/23 Clopidogrel [Plavix] 75 mg PO DAILY 30 Days #30 tab 09/11/23 lisinopriL [Zestril] 20 mg PO BID #60 tab 09/11/23 Allergies Allergy/AdvReac Type Severity Reaction Status Date / Time Iodinated Contrast Media Allergy Wheezing/hi Verified 05/09/24 14:37 ves iodine Allergy Wheezing/hi Verified 05/09/24 14:37 ves Review of Systems ROS Statement: Those systems with pertinent positive or pertinent negative responses have been documented in the HPI. ROS Other: All systems not noted in ROS Statement are negative. Past Medical History Past Medical History: Atrial Fibrillation, Hyperlipidemia, Hypertension History of Any Multi-Drug Resistant Organisms: None Reported Past Surgical History: No Surgical Hx Reported Past Anesthesia/Blood Transfusion Reactions: No Reported Reaction Past Alcohol Use History: None Reported, Unable to Obtain General Exam General appearance: alert, in no apparent distress Head exam: Present: atraumatic, normocephalic Eye exam: Present: normal appearance, PERRL Neck exam: Present: normal inspection. Absent: tenderness, meningismus Respiratory exam: Present: normal lung sounds bilaterally. Absent: respiratory distress, wheezes Cardiovascular Exam: Present: regular rate, normal rhythm GI/Abdominal exam: Present: soft, tenderness (Quadrant). Absent: distended, guarding, rebound Course Vital Signs 05/09/24 05/09/24 13:13 13:56 Temperature 97.6 F Pulse Rate 83 80 Respiratory 18 22 Rate Blood Pressure 107/61 O2 Sat by Pulse 97 97 Oximetry Medical Decision Making - Medical Decision Making Was pt. sent in by a medical professional or institution (RONALDO Magaña, GAMEROOM TECHNICIAN, urgent care, hospital, or shelter...) When possible be specific @ -No Did you speak to anyone other than the patient for history (EMS, parent, family, police, friend...)? What history was obtained from this source @ -No Did you review nursing and triage notes (agree or disagree)? Why? @ -I reviewed and agree with nursing and triage notes Were old charts reviewed (outside hosp., previous admission, EMS record, old EKG, old radiological studies, urgent care reports/EKG's, shelter records)? Report findings @ -No old charts were reviewed Differential Abdominal Pain Women: Appendicitis, Cholecystitis, diverticulosis, ischemic bowel, pancreatitis, hepatitis, UTI, gastroenteritis, AAA, incarcerated hernia, bowel obstruction, constipation, inflammatory bowel, hepatitis, peptic ulcer disease, splenic infarction, perforated viscus, vulvitis, ovarian torsion, PID, kidney stone, placenta abruption, this is not meant to be an all-inclusive list EKG interpreted by me (3pts min.). @ -As above X-rays interpreted by me (1pt min.). @ -None done CT interpreted by me (1pt min.). @CT of the abdomen pelvis showing diverticulitis with intraluminal air, no abscess. U/S interpreted by me (1pt. min.). @ -None done What testing was considered but not performed or refused? (CT, X-rays, U/S, labs)? Why? @ -None What meds were considered but not given or refused? Why? @ -None Did you discuss the management of the patient with other professionals (professionals i.e. RONALDO Magaña, GAMEROOM TECHNICIAN, lab, RT, psych nurse, social human services assistants, lunch wagon operator, t eacher, property officer, child support case officer)? Give summary @Discussed with [facility] hospitalist who will admit Was smoking cessation discussed for >3mins.? @ -No Was critical care preformed (if so, how long)? @ -No Were there social determinants of health that impacted care today? How? (Homelessness, low income, unemployed, alcoholism, drug addiction, transportation, low edu. Level, literacy, decrease access to med. care, [facility], rehab)? @ -No Was there de-escalation of care discussed even if they declined (Discuss DNR or withdrawal of care, Hospice)? DNR status @ -No What co-morbidities impacted this encounter? (DM, HTN, Smoking, COPD, CAD, Cancer, CVA, ARF, Chemo, Hep., AIDS, mental health diagnosis, sleep apnea, morbid obesity)? @ -None Was patient admitted / discharged? Hospital course, mention meds given and route, prescriptions, significant lab abnormalities, going to OR and other pertinent info. @ -year-old female with 3 weeks of lower abdominal pain, she has an elevated white count and elevated [id number]. She has a normal lactic acid and is not acidotic. Urinalysis is pending. CT shows significant diverticulitis with intraluminal free air. Patient admitted for IV antibiotics, surgical consultation. hemodynamically stable. Undiagnosed new problem with uncertain prognosis? @ -No Drug Therapy requiring intensive monitoring for toxicity (Heparin, Nitro, Insulin, Cardizem)? @ -No Were any procedures done? @ -No Diagnosis/symptom? @ -Acute diverticulitis Acute, or Chronic, or Acute on Chronic? @ -acute Uncomplicated (without systemic symptoms) or Complicated (systemic symptoms)? @ -complicated Side effects of treatment? @ -No Exacerbation, Progression, or Severe Exacerbation? @ -No Poses a threat to life or bodily function? How? (Chest pain, [place], [place], pneumonia, PE, COPD, DKA, ARF, appy, cholecystitis, CVA, Diverticulitis, Homicidal, Suicidal, threat to staff... and all critical care pts) @ -yes, sepsis - Lab Data Result diagrams: 05/09/24 13:43 05/09/24 13:43 Lab Results 05/09/24 05/09/24 05/09/24 Range/Units 13:43 13:43 13:43 WBC 14.9 H (3.8-10.6) k/uL RBC 4.93 (3.80-5.40) m/uL Hgb 12.4 (11.4-16.0) gm/dL Hct 39.4 (34.0-46.0) % MCV 79.9 L (80.0-100.0) fL MCH 25.2 (25.0-35.0) pg MCHC 31.5 (31.0-37.0) g/dL RDW 14.0 (11.5-15.5) % Plt Count 554 H (150-450) k/uL MPV 6.8 Neutrophils % 85 % Lymphocytes % 7 % Monocytes % 7 % Eosinophils % 0 % Basophils % 0 % Neutrophils # 12.7 H (1.3-7.7) k/uL Lymphocytes # 1.1 (1.0-4.8) k/uL Monocytes # 1.0 (0-1.0) k/uL Eosinophils # 0.0 (0-0.7) k/uL Basophils # 0.0 (0-0.2) k/uL Hypochromasia Moderate PT 11.3 (10.0-12.5) sec INR 1.0 (<1.2) APTT 24.7 (22.0-30.0) sec Sodium 136 L (137-145) mmol/L Potassium 4.4 (3.5-5.1) mmol/L Chloride 106 (98-107) mmol/L Carbon Dioxide 22 (22-30) mmol/L Anion Gap 8 mmol/L BUN 18 H (7-17) mg/dL Creatinine 0.77 (0.52-1.04) mg/dL Est GFR (CKD-EPI)AfAm 87 (>60 ml/min/1.73 sqM) Est GFR (CKD-EPI)NonAf 76 (>60 ml/min/1.73 sqM) Glucose 127 H (74-99) mg/dL POC Glucose (mg/dL) (70-110) mg/dL POC Glu Dye Reel Operator ID Plasma Lactic Acid David (0.7-2.0) mmol/L Calcium 9.6 (8.4-10.2) mg/dL Total Bilirubin 1.0 (0.2-1.3) mg/dL AST 27 (14-36) U/L ALT 11 (4-34) U/L Alkaline Phosphatase 111 (38-126) U/L Total Protein 7.6 (6.3-8.2) g/dL Albumin 3.4 L (3.5-5.0) g/dL Amylase 48 (30-110) U/L Lipase 111 (23-300) U/L 05/09/24 05/09/24 Range/Units 13:43 16:35 WBC (3.8-10.6) k/uL RBC (3.80-5.40) m/uL Hgb (11.4-16.0) gm/dL Hct (34.0-46.0) % MCV (80.0-100.0) fL MCH (25.0-35.0) pg MCHC (31.0-37.0) g/dL RDW (11.5-15.5) % Plt Count (150-450) k/uL MPV Neutrophils % % Lymphocytes % % Monocytes % % Eosinophils % % Basophils % % Neutrophils # (1.3-7.7) k/uL Lymphocytes # (1.0-4.8) k/uL Monocytes # (0-1.0) k/uL Eosinophils # (0-0.7) k/uL Basophils # (0-0.2) k/uL Hypochromasia PT (10.0-12.5) sec INR (<1.2) APTT (22.0-30.0) sec Sodium (137-145) mmol/L Potassium (3.5-5.1) mmol/L Chloride (98-107) mmol/L Carbon Dioxide (22-30) mmol/L Anion Gap mmol/L BUN (7-17) mg/dL Creatinine (0.52-1.04) mg/dL Est GFR (CKD-EPI)AfAm (>60 ml/min/1.73 sqM) Est GFR (CKD-EPI)NonAf (>60 ml/min/1.73 sqM) Glucose (74-99) mg/dL POC Glucose (mg/dL) 87 (70-110) mg/dL POC Glu Dye Reel Operator ID Lala Hanna Plasma Lactic Acid David 1.8 (0.7-2.0) mmol/L Calcium (8.4-10.2) mg/dL Total Bilirubin (0.2-1.3) mg/dL AST (14-36) U/L ALT (4-34) U/L Alkaline Phosphatase (38-126) U/L Total Protein (6.3-8.2) g/dL Albumin (3.5-5.0) g/dL Amylase (30-110) U/L Lipase (23-300) U/L Disposition Clinical Impression: Diverticulitis Disposition: ADMITTED IP TO THIS [facility] Condition: Stable Is patient prescribed a controlled substance at d/c from ED?: No Referrals: Jasson Morales [Primary Care Provider] - 1-2 days Time of Disposition: 17:13
[2024-05-09] MEDS: SODIUM CHLORIDE 0.9% 500 ML 500 ML IV ONE (14:02)
[2024-05-09 14:17] LABS: Basophils % (A) 0 %; Eosinophils % (A) 0 %; HCT 39.4 % (34.0-46.0); HGB 12.4 gm/dL (11.4-16.0); Hypochromasia Moderate; Lymphocytes # (A) 1.1 k/uL (1.0-4.8); Lymphocytes % (A) 7 %; MCH 25.2 pg (25.0-35.0); MCHC 31.5 g/dL (31.0-37.0); MCV 79.9 fL (80.0-100.0); Mean Platelet Volume 6.8; Monocytes % (A) 7 %; Neutrophils # (A) 12.7 k/uL (1.3-7.7); Neutrophils % (A) 85 %; Platelet Count 554 k/uL (150-450); RBC 4.93 m/uL (3.80-5.40); WBC 14.9 k/uL (3.8-10.6)
[2024-05-09 14:26] LABS: Partial Thromboplastin Time 24.7 sec (22.0-30.0); Prothrombin Time 11.3 sec (10.0-12.5)
[2024-05-09 14:31] LABS: ALT 11 U/L (4-34); African American GFR (CKD) 87 (>60 ml/min/1.73 sqM); Albumin 3.4 g/dL (3.5-5.0); Amylase 48 U/L (30-110); Anion Gap 8 mmol/L; Blood Urea Nitrogen 18 mg/dL (7-17); Calcium 9.6 mg/dL (8.4-10.2); Carbon Dioxide 22 mmol/L (22-30); Chloride 106 mmol/L (98-107); Glucose 127 mg/dL (74-99); Lipase 111 U/L (23-300); Non-African American GFR(CKD) 76 (>60 ml/min/1.73 sqM); Sodium 136 mmol/L (137-145); Total Protein 7.6 g/dL (6.3-8.2)
[2024-05-09 14:53] LABS: AST 27 U/L (14-36); Potassium 4.4 mmol/L (3.5-5.1)
[2024-05-09 14:54] LABS: Alkaline Phosphatase 111 U/L (38-126)
--- NOTE | 2024-05-09 15:27 | CT ---
EXAMINATION TYPE: CT abdomen pelvis wo con DATE OF EXAM: 05/09/2024 HISTORY: abdominal pain x 3 weeks, lower abdominal pain x [address] DLP: 812.3 mGycm. Automated Exposure Control for Dose Reduction was Utilized. TECHNIQUE: CT scan of the abdomen and pelvis is performed without oral or IV contrast. COMPARISON: None FINDINGS: Within the limitations of a non-contrast study, the following observations are made. There are mild chronic changes within the lung bases with mild bronchiectasis and mild fine interstit ial densities. There are no gallstones. There is no enlargement of the liver, pancreas or spleen left adrenal gland appears mildly nodular. There is thickening of the wall of the sigmoid colon with marked diverticulosis. There is abnormal de nsity in the pericolic fat and there are multiple extraluminal droplets of air consistent with acute diverticulitis with perforation is no bowel obstruction. There is no free intraperitoneal fluid. Secondary to the inflammatory process, there is narrowing of the proximal to mid left ureter resultin g in marked left-sided hydronephrosis and proximal left hydroureter. There is a nonobstructing 5-6 mm left renal calcification. There is a bulky likely fibroid uterus. The osseous structures are intact. IMPRESSION: 1. Marked acute diverticulitis of the sigmoid colon with droplets of extraluminal air consistent with perforation. There is no bowel obstruction or free intraperitoneal fluid. There is no discrete absce ss. 2. Secondary to the inflammatory process related to the sigmoid colon, there is severe narrowing of t he proximal to mid left ureter resulting in marked left hydronephrosis and proximal left hydroureter 3. Nonobstructing 5 to 6 mm right renal calculus 4. Probable fibroid uterus 5. Probable mild chronic inflammatory changes in the lower lobes
[2024-05-09 16:37] LABS: Glucose,Whole Blood 87 mg/dL (70-110)
[2024-05-09] MEDS: SODIUM CHLORIDE 0.9% 1,000 ML IV SCH (16:41)
[2024-05-09] MEDS: HYDROmorphone 0.5 MG/0.5 ML SYRINGE IVP STA (16:44)
[2024-05-09] MEDS ORDERED: NALOXONE 0.4 MG/ML 1 ML VIAL IV PRN (17:08)
[2024-05-09] MEDS: PIPERACILLIN-TAZOBACTAM 3.375 GM in SODIUM CHLORIDE 0.9% 100 ML IVPB SCH (17:45)
[2024-05-09] MEDS: ONDANSETRON 4 MG/2 ML VIAL IVP PRN (21:44)
[2024-05-09] MEDS: PANTOPRAZOLE 40 MG/10 ML VIAL IVP SCH (22:24)
[2024-05-10] MEDS: HYDROmorphone 0.5 MG/0.5 ML SYRINGE IVP PRN (08:01)
--- NOTE | 2024-05-10 09:51 | P.HPIM ---
History of Present Illness H&P Date: 05/10/24 Patient is a 73-year-old female with a history of CAD (stent placement in August 2023), defibrillator placement, hypertension, hyperlipidemia, A-fib who came in for abdominal pain that has been occurring for 3 weeks. She reports that the pain occurs on the right and left lower quadrants, is intermittent and sharp with an intensity of 7/10 per episode and is worse with movement. The pa in radiated to the leg yesterday which caused her to seek care. There is an associated nausea, chills, and constipation. She denies vomiting, fever, diarrhea, hematochezia, hematemesis, melena, loss of appetite, night sweats, chest pain, shortness of breath, or new onset cough. WBC is elevated at 14.9. CT shows acute diverticulitis of sigmoid colon positive for perforation, no obstruction, no intraperitoneal fluid, no abscess with left hydronephrosis and left hydroureter secondary to inflammation of the colon, and a 5 to 6 cm renal calculus. ED documentation reviewed. Review of systems: Pertinent positives and negatives as discussed in HPI, a complete review of systems was performed and all other systems are negative. Family history: Mother had primary biliary cholangitis. Father had cancer of the prostate. Social history: Tobacco: Denies any smoking history Alcohol: Occasional drinker with 1-2 beers per week Recreational drugs: Denies any drug history Travel: No recent travel Occupation: Retired. Physical examination: Vital signs reviewed General: non toxic, no distress, appears at stated age, normal weight Derm: no unusual rashes/lesions, warm Head: atraumatic, normocephalic, symmetric Eyes: EOMI, no lid lag, anicteric sclera, pupils equal round reactive to light ENT: Nose and ears atraumatic Neck: No cervical lymphadenopathy, trachea midline, supple Mouth: no lip lesion, mucus membranes moist Cardiovascular: irregularly irregular rhythm, no murmurs Lungs: CTA bilateral, no rhonchi, no rales, no accessory muscle use Abdominal: soft, epigastric and right lower quadrant tenderness on light palpation, no guarding Ext: muscle strength 5 out of 5 in all 4 extremities grossly, no gross muscle atrophy, no contractures, positive dorsalis pedis pulse bilateral, no edema Neuro: CN II-XI grossly intact, no gross focal neuro deficits Psych: Alert, oriented, appropriate affect and mood Assessment/Plan: #. Abdominal pain due to diverticulitis with perforation WBC elevated at 14.9. Diagnosis supported by CT scan findings -N.p.o. for now. Hold home medications -Pain control with Dilaudid 1 mg IV push every 3 hours as needed -Continue with Zofran 40 mg IV push every 8 hours as needed for nausea and vomiting -Continue with Zosyn 3.375 g 100 mL IV piggyback every 8 hours -Continue with 0.9% NaCl IV 130 mL/h -Consult surgery -CBC at a.m. #. Thrombocytosis Patient is currently stable. And has no signs and symptoms of active bleeding -Will monitor for now. CBC at a.m. Chronic conditions: A-fib, CAD with 1 stent placement, hypertension, hyperlipidemia, diabetes, osteoarthritis, osteopenia DVT prophylaxis: Lovenox 40 mg SQ daily The patient is admitted with an anticipated greater than than 2 midnight stay for evaluation of abdominal pain CODE STATUS: Full Discussed with: Patient Anticipated discharge place: Home I have performed a history and examination and MDM of this patient, discussed the same with the resident/FRITZ, and agree with the dictator's assessment and plan as written ,documented as a scribe. Based on total visit time, I have performed more than 50% of the visit. Dr. Chadwick leal Past Medical History Past Medical History: Atrial Fibrillation, Hyperlipidemia, Hypertension, Myocardial Infarction ([place]) Last Myocardial Infarction Date:: 09/07/2023 History of Any Multi-Drug Resistant Organisms: None Reported Past Surgical History: No Surgical Hx Reported Additional Past Surgical History / Comment(s): Cardiac stents Past Anesthesia/Blood Transfusion Reactions: No Reported Reaction Past Psychological History: No Psychological Hx Reported Smoking Status: Never smoker Past Alcohol Use History: None Reported, Unable to Obtain Past Drug Use History: None Reported Medications and Allergies Home Medications Medication Instructions Recorded Confirmed Type Aspirin EC [Ecotrin Low Dose] 81 mg PO HS 12/02/17 05/09/24 History Atorvastatin [Lipitor] 40 mg PO DAILY #90 tab 09/11/23 05/09/24 Rx Clopidogrel [Plavix] 75 mg PO DAILY 30 Days #30 tab 09/11/23 05/09/24 Rx lisinopriL [Zestril] 20 mg PO BID #60 tab 09/11/23 05/09/24 Rx Empagliflozin [Jardiance] 10 mg PO DAILY 04/15/24 05/09/24 History Spironolactone 25 mg PO DAILY 04/15/24 05/09/24 History Metoprolol Succinate (ER) [Toprol 25 mg PO DAILY 05/09/24 05/09/24 History XL] Nitroglycerin Sl Tabs [Nitrostat] 0.4 mg SL Q5M PRN 05/09/24 05/09/24 History Allergies Allergy/AdvReac Type Severity Reaction Status Date / Time Iodinated Contrast Media Allergy Wheezing/hi Verified 05/09/24 14:37 ves iodine Allergy Wheezing/hi Verified 05/09/24 14:37 ves Physical Exam Vitals: Vital Signs Temp Pulse Pulse Resp BP BP Pulse Ox 05/10/24 02:00 97.8 F 88 14 97/39 91 L 05/09/24 20:00 100.2 F H 88 115/69 98 05/09/24 18:21 97.9 F 107 H 19 109/62 96 05/09/24 17:53 98.8 F 112 H 21 133/64 97 05/09/24 13:56 80 22 107/61 97 05/09/24 13:13 97.6 F 83 18 97 Intake and Output 05/09/24 05/10/24 05/10/24 22:59 06:59 14:59 Output Total 300 Balance -300 Output: Urine 300 Other: Voiding Method External Catheter # Voids 2 Weight 72.575 kg Results CBC & Chem 7: 05/09/24 13:43 05/09/24 13:43 Labs: Abnormal Lab Results - Last 24 Hours (Table) 05/09/24 05/09/24 Range/Units 13:43 13:43 WBC 14.9 H (3.8-10.6) k/uL MCV 79.9 L (80.0-100.0) fL Plt Count 554 H (150-450) k/uL Neutrophils # 12.7 H (1.3-7.7) k/uL Sodium 136 L (137-145) mmol/L BUN 18 H (7-17) mg/dL Glucose 127 H (74-99) mg/dL Albumin 3.4 L (3.5-5.0) g/dL Thrombosis Risk Factor Assmnt - Choose All That Apply Any of the Below Risk Factors Present?: Yes Each Factor Represents 1 point: Obesity (BMI >25) Each Risk Factor Represents 3 Points: Age 75 years or older Thrombosis Risk Factor Assessment Total Risk Factor Score: 4 Thrombosis Risk Factor Assessment Level: Moderate Risk
--- NOTE | 2024-05-10 10:39 | P.GSCN ---
History of Present Illness Consult date: 05/10/24 History of present illness: CHIEF COMPLAINT: Abdominal pain HISTORY OF PRESENT ILLNESS: This is a 73-year-old female who presents to the hospital with complaints of abdominal pain x 3 weeks. Patient reports pain initially started in the left lower quadrant and moved to the right lower quadrant. Patient reports that the pain became very severe yesterday and was presented to the ER for evaluation. She had a CT scan abdomen pelvis that had reported diverticulitis with a microperforation. Patient has been mildly tachycardic and episodes of hypotension and low-grade temp last night. Patient has been having fevers and chills at home with nausea. She does have a past surgical history of a tubal ligation. She does have a cardiac history with cardiac stent on Plavix. Last dose of Plavix was yesterday. Also history of pacemaker recently placed April 19, 2024. Patient does report having a prior history of diverticulitis which was managed with antibiotics about 4 years ago. She has never had a colonoscopy. Patient reports her pain is slightly better today. She is n.p.o. and on IV antibiotics. Surgical service consulted for diverticulitis with microperforation. Patient does report an intentional 40 pound weight loss. Patient seen and examined with Dr. Valles PAST MEDICAL HISTORY: Myocardial infarction x 2. Last VT August 2023, coronary artery disease with cardiac stent, cardiomyopathy EF 25 to 30%, A-fib, diverticulitis, hypertension PAST SURGICAL HISTORY: Tubal ligation, pacemaker placed April 19, 2024 MEDICATIONS: See below ALLERGIES: See below SOCIAL HISTORY: No illicit drug use. REVIEW OF SYSTEMS: CONSTITUTIONAL: Denies fever or chills. HEENT: Denies blurred vision, vision changes, or eye pain. Denies hemoptysis CARDIOVASCULAR: Denies chest pain or pressure. RESPIRATORY: No shortness of breath. GASTROINTESTINAL: See HPI for pertinent findings HEMATOLOGIC: Denies bleeding disorders. GENITOURINARY: Denies any blood in urine or increased urinary frequency. SKIN: Denies pruitis. Denies rash. PHYSICAL EXAM: VITAL SIGNS: Reviewed GENERAL: Well-developed in no acute distress. ABDOMEN: Soft. Mildly distended. Tenderness with palpation left lower quadrant right lower quadrant and epigastric area NEUROLOGIC: Alert and oriented. Cranial nerves II through XII grossly intact. LABORATORY DATA: WBC 14.9 Hgb 12.4 platelets 554 INR 1.0 Sodium 136 potassium 4.4 creatinine 0.77 Lactic acid 1.8 IMAGING: CT scan abdomen pelvis reports marked acute diverticulitis of the sigmoid colon with droplets of extraluminal air consistent with perforation. There is no bowel obstruction or free intraperitoneal fluid. There is no discrete abscess. Secondary to the inflammatory process related to the sigmoid colon there is severe narrowing of the proximal to mid left ureter resulting in a left hydronephrosis. Nonobstructing 5 to 6 mm right renal calculus. Probable fibroid uterus. ASSESSMENT: 1. Acute sigmoid diverticulitis with microperforation 2. Prior history of diverticulitis x 1 3. Myocardial infarction with coronary artery disease and cardiac stent placed in August 2023 4. Recent pacemaker, April 19, 2024 PLAN: -Continue to monitor patient closely -Keep patient n.p.o. -Continue IV antibiotics -Continue pain management -Give 1 L fluid bolus, patient is dry and having episodes of hypotension -Hold Plavix -Hold BP meds for hypotension -Repeat CBC in a.m. Physician Parts Casting Machine Operator note has been reviewed by physician. Signing provider agrees with the documented findings, assessment, and plan of care. Past Medical History Past Medical History: Atrial Fibrillation, Hyperlipidemia, Hypertension, Myocardial Infarction ([place]) Last Myocardial Infarction Date:: 09/07/2023 History of Any Multi-Drug Resistant Organisms: None Reported Past Surgical History: No Surgical Hx Reported Additional Past Surgical History / Comment(s): Cardiac stents Past Anesthesia/Blood Transfusion Reactions: No Reported Reaction Past Psychological History: No Psychological Hx Reported Smoking Status: Never smoker Past Alcohol Use History: None Reported, Unable to Obtain Past Drug Use History: None Reported Medications and Allergies Home Medications Medication Instructions Recorded Confirmed Type Aspirin EC [Ecotrin Low Dose] 81 mg PO HS 12/02/17 05/09/24 History Atorvastatin [Lipitor] 40 mg PO DAILY #90 tab 09/11/23 05/09/24 Rx Clopidogrel [Plavix] 75 mg PO DAILY 30 Days #30 tab 09/11/23 05/09/24 Rx lisinopriL [Zestril] 20 mg PO BID #60 tab 09/11/23 05/09/24 Rx Empagliflozin [Jardiance] 10 mg PO DAILY 04/15/24 05/09/24 History Spironolactone 25 mg PO DAILY 04/15/24 05/09/24 History Metoprolol Succinate (ER) [Toprol 25 mg PO DAILY 05/09/24 05/09/24 History XL] Nitroglycerin Sl Tabs [Nitrostat] 0.4 mg SL Q5M PRN 05/09/24 05/09/24 History Allergies Allergy/AdvReac Type Severity Reaction Status Date / Time Iodinated Contrast Media Allergy Wheezing/hi Verified 05/09/24 14:37 ves iodine Allergy Wheezing/hi Verified 05/09/24 14:37 ves Surgical - Exam Vital Signs Temp Pulse Resp Pulse Ox 97.6 F 83 18 97 05/09/24 13:13 05/09/24 13:13 05/09/24 13:13 05/09/24 13:13 Results - Labs 05/09/24 13:43 05/09/24 13:43 Abnormal Lab Results - Last 24 Hours (Table) 05/09/24 05/09/24 Range/Units 13:43 13:43 WBC 14.9 H (3.8-10.6) k/uL MCV 79.9 L (80.0-100.0) fL Plt Count 554 H (150-450) k/uL Neutrophils # 12.7 H (1.3-7.7) k/uL Sodium 136 L (137-145) mmol/L BUN 18 H (7-17) mg/dL Glucose 127 H (74-99) mg/dL Albumin 3.4 L (3.5-5.0) g/dL Diabetes panel 05/09/24 Range/Units 13:43 Sodium 136 L (137-145) mmol/L Potassium 4.4 (3.5-5.1) mmol/L Chloride 106 (98-107) mmol/L Carbon Dioxide 22 (22-30) mmol/L BUN 18 H (7-17) mg/dL Creatinine 0.77 (0.52-1.04) mg/dL Glucose 127 H (74-99) mg/dL Calcium 9.6 (8.4-10.2) mg/dL AST 27 (14-36) U/L ALT 11 (4-34) U/L Alkaline Phosphatase 111 (38-126) U/L Total Protein 7.6 (6.3-8.2) g/dL Albumin 3.4 L (3.5-5.0) g/dL Calcium panel 05/09/24 Range/Units 13:43 Calcium 9.6 (8.4-10.2) mg/dL Albumin 3.4 L (3.5-5.0) g/dL Pituitary panel 05/09/24 Range/Units 13:43 Sodium 136 L (137-145) mmol/L Potassium 4.4 (3.5-5.1) mmol/L Chloride 106 (98-107) mmol/L Carbon Dioxide 22 (22-30) mmol/L BUN 18 H (7-17) mg/dL Creatinine 0.77 (0.52-1.04) mg/dL Glucose 127 H (74-99) mg/dL Calcium 9.6 (8.4-10.2) mg/dL Adrenal panel 05/09/24 Range/Units 13:43 Sodium 136 L (137-145) mmol/L Potassium 4.4 (3.5-5.1) mmol/L Chloride 106 (98-107) mmol/L Carbon Dioxide 22 (22-30) mmol/L BUN 18 H (7-17) mg/dL Creatinine 0.77 (0.52-1.04) mg/dL Glucose 127 H (74-99) mg/dL Calcium 9.6 (8.4-10.2) mg/dL Total Bilirubin 1.0 (0.2-1.3) mg/dL AST 27 (14-36) U/L ALT 11 (4-34) U/L Alkaline Phosphatase 111 (38-126) U/L Total Protein 7.6 (6.3-8.2) g/dL Albumin 3.4 L (3.5-5.0) g/dL
[2024-05-10] MEDS: SODIUM CHLORIDE 0.9% 1,000 ML IV ONE (12:34)
[2024-05-10 18:25] LABS: Appearance,Urine Clear (Clear); Bilirubin,Urine Negative (Negative); Blood,Urine Trace (Negative); Budding Yeast,Urine Occasional /hpf; Calcium Oxalate Crystals,Urine Occasional /hpf; Color,Urine Light Yellow; Glucose,Urine (UA) 4+ (Negative); Ketones,Urine 1+ (Negative); Leukocyte Esterase,Urine Trace (Negative); Mucus,Urine Rare /hpf; Nitrite,Urine Negative (Negative); Protein,Urine Negative (Negative); RBC,Urine 6 /hpf (0-5); Specific Gravity,Urine 1.022 (1.001-1.035); Squamous Epithelial Cell,Urine 4 /hpf (0-4); Urobilinogen,Urine <2.0 mg/dL (<2.0); WBC,Urine 7 /hpf (0-5)
[2024-05-11 09:26] LABS: ALT 6 U/L (8-44); AST 17 U/L (13-35); Albumin 2.8 g/dL (3.8-4.9); Albumin/Globulin Ratio 0.78 Ratio (1.60-3.17); Alkaline Phosphatase 95 U/L (41-126); BUN/Creat Ratio 28.17 Ratio (12.00-20.00); Blood Urea Nitrogen 16.9 mg/dL (9.0-27.0); Calcium 9.2 mg/dL (8.7-10.3); Carbon Dioxide 18.2 mmol/L (21.6-31.8); Chloride 107 mmol/L (96-109); Chol/HDL Ratio 2.73 Ratio; Globulin 3.6 g/dL (1.6-3.3); Glucose 83 mg/dL (70-110); LDL Cholesterol,Calculated 34.1 mg/dL (0.0-131.0); Potassium 4.5 mmol/L (3.5-5.5); Sodium 140 mmol/L (135-145); Total Bilirubin 0.4 mg/dL (0.3-1.2); Total Protein 6.4 g/dL (6.2-8.2); VLDL Calculation 17.24 mg/dL (5.00-40.00)
[2024-05-11 09:33] LABS: Basophils # (A) 0.03 X 10*3/uL (0.00-0.10); Basophils % (A) 0.2 %; Eosinophils # (A) 0 X 10*3/uL (0.04-0.35); Eosinophils % (A) 0 %; HCT 39.6 % (37.2-46.3); HGB 11.8 g/dL (12.0-15.0); Lymphocytes # (A) 1.27 X 10*3/uL (0.90-5.00); Lymphocytes % (A) 8.5 %; MCH 25.1 pg (27.0-32.0); MCHC 29.8 g/dL (32.0-37.0); MCV 84.1 FL (80.0-97.0); Mean Platelet Volume 9.1 FL (9.5-12.2); Monocytes # (A) 1.28 X 10*3/uL (0.20-1.00); Monocytes % (A) 8.6 %; NRBC Per 100 WBC 0 X 10*3/uL (0.00-0.01); Neutrophils # (A) 12.18 X 10*3/uL (1.80-7.70); Platelet Count 421 X 10*3/uL (140-440); RBC 4.71 X 10*6/uL (4.10-5.20); RDW 14.6 % (11.5-14.5); WBC 14.86 X 10*3/uL (4.50-10.00)
[2024-05-11] MEDS: ASPIRIN 81 MG PO SCH (11:43)
--- NOTE | 2024-05-11 11:46 | P.CRDCN ---
History of Present Illness History of present illness: HISTORY OF PRESENT ILLNESS: This is a 73-year-old female with a past medical history significant for coronary artery disease with previous stenting, hypertension, hyperlipidemia, and ischemic cardiomyopathy with recent ICD implantation. Patient follows in the office with Dr. Lopez. We have been asked to see the patient in consultation for hypotension. Patient examined at the bedside. Patient presented to the hospital with a chief complaint of abdominal pain. Patient was found to have diverticulitis with microperforation. She is currently NPO and is being followed by general surgery. Patient currently denies chest pain or pressure. She denies shortness of breath. She does report port a 40 pound weight loss recently. However she states some of this was intentional but over the past week her weight loss was unintentional due to feeling unwell. She denies any chest pain or pressure. Denies any dizziness or lightheadedness. DIAGNOSTICS: - Laboratory data: WBC 14.86. Hemoglobin 11.8. Platelet count 421. Sodium 140. Potassium 4.5. BUN 16.9. Creatinine 0.6. - Current home cardiac medications include metoprolol succinate 25 mg daily, Jardiance 10 mg daily, aspirin 81 mg at night, lisinopril 20 mg twice a day, spironolactone 25 mg daily, Plavix 75 mg daily, Lipitor 40 mg daily - Cardiac catheterization history: August 2023 with stenting of the proximal L AD REVIEW OF SYSTEMS: At the time of my exam: CONSTITUTIONAL: Denies fever or chills. HEENT: Denies blurred vision, vision changes, or eye pain. Denies hemoptysis CARDIOVASCULAR: Denies chest pain. Denies orthopnea. Denies PND. Denies palpitations RESPIRATORY: Denies shortness of breath. GASTROINTESTINAL: Reports abdominal pain. Denies nausea or vomiting. HEMATOLOGIC: Denies bleeding disorders. GENITOURINARY: Denies any blood in urine. SKIN: Denies pruitis. Denies rash. PHYSICAL EXAM: VITAL SIGNS: Reviewed. GENERAL: Well-developed in no acute distress. HEENT: Head is normocephalic. Pupils are equal, round. Sclerae anicteric. Mucous membranes of the mouth are moist. Neck supple. No JVD or thyromegaly LUNGS: Respirations even and unlabored. Lungs essentially clear to auscultation bilaterally. HEART: Regular rate and rhythm. S1 and S2 heard. ABDOMEN: Soft. Nondistended. Patient with significant tenderness with light palpation. EXTREMITIES: Normal range of motion. No clubbing or cyanosis. Peripheral pulses intact. No lower extremity edema NEUROLOGIC: Awake and alert. Oriented x 3. ASSESSMENT: Acute diverticulitis with microperforation Coronary artery disease with previous PCI, most recently to proximal LAD in August 2023 Ischemic cardiomyopathy 30% with recent ICD implantation Hypotension, likely secondary to acute infectious process History of hypertension History of hyperlipidemia PLAN: Obtain 2D echo to assess cardiac structure and function Resume aspirin and atorvastatin. Okay to hold Plavix at this time Continue to hold additional cardiac medications secondary to hypotension during hospitalization Continue to monitor blood pressure Further recommendations pending patient course Nurse practitioner note has been reviewed by physician. Signing provider agrees with the documented findings, assessment, and plan of care documented by SLUBBER RUNNER as a scribe. Past Medical History Past Medical History: Atrial Fibrillation, Hyperlipidemia, Hypertension, Myocardial Infarction ([place]) Last Myocardial Infarction Date:: 09/07/2023 History of Any Multi-Drug Resistant Organisms: None Reported Past Surgical History: No Surgical Hx Reported Additional Past Surgical History / Comment(s): Cardiac stents Past Anesthesia/Blood Transfusion Reactions: No Reported Reaction Past Psychological History: No Psychological Hx Reported Smoking Status: Never smoker Past Alcohol Use History: None Reported, Unable to Obtain Past Drug Use History: None Reported Medications and Allergies Home Medications Medication Instructions Recorded Confirmed Type Aspirin EC [Ecotrin Low Dose] 81 mg PO HS 12/02/17 05/09/24 History Atorvastatin [Lipitor] 40 mg PO DAILY #90 tab 09/11/23 05/09/24 Rx Clopidogrel [Plavix] 75 mg PO DAILY 30 Days #30 tab 09/11/23 05/09/24 Rx lisinopriL [Zestril] 20 mg PO BID #60 tab 09/11/23 05/09/24 Rx Empagliflozin [Jardiance] 10 mg PO DAILY 04/15/24 05/09/24 History Spironolactone 25 mg PO DAILY 04/15/24 05/09/24 History Metoprolol Succinate (ER) [Toprol 25 mg PO DAILY 05/09/24 05/09/24 History XL] Nitroglycerin Sl Tabs [Nitrostat] 0.4 mg SL Q5M PRN 05/09/24 05/09/24 History Allergies Allergy/AdvReac Type Severity Reaction Status Date / Time Iodinated Contrast Media Allergy Wheezing/hi Verified 05/09/24 14:37 ves iodine Allergy Wheezing/hi Verified 05/09/24 14:37 ves Physical Exam Vitals: Vital Signs Temp Pulse Resp BP Pulse Ox 05/11/24 07:23 98.0 F 67 16 138/74 95 05/11/24 00:25 98.1 F 71 15 148/76 92 L 05/10/24 19:40 98.1 F 77 15 134/76 96 05/10/24 15:08 98.5 F 74 17 126/71 94 L Intake and Output 05/10/24 05/11/24 05/11/24 22:59 06:59 14:59 Output Total 450 750 Balance -450 -750 Output: Urine 450 750 Other: Voiding Method External Catheter # Voids 1 Results 05/11/24 05:23 05/11/24 05:23 Cardiac Enzymes 05/11/24 Range/Units 05:23 AST 17 (13-35) U/L Lipids 05/11/24 Range/Units 05:23 Triglycerides 86.20 (0.00-149.00) mg/dL Cholesterol 81.00 (0.00-200.00) mg/dL HDL Cholesterol 29.70 L (40.00-60.00) mg/dL Cholesterol/HDL Ratio 2.73 Ratio CBC 05/11/24 Range/Units 05:23 WBC 14.86 H (4.50-10.00) X 10*3/uL RBC 4.71 (4.10-5.20) X 10*6/uL Hgb 11.8 L (12.0-15.0) g/dL Hct 39.6 (37.2-46.3) % Plt Count 421 (140-440) X 10*3/uL Comprehensive Metabolic Panel 05/11/24 Range/Units 05:23 Sodium 140 (135-145) mmol/L Potassium 4.5 (3.5-5.5) mmol/L Chloride 107 (96-109) mmol/L Carbon Dioxide 18.2 L (21.6-31.8) mmol/L BUN 16.9 (9.0-27.0) mg/dL Creatinine 0.6 (0.6-1.5) mg/dL Glucose 83 (70-110) mg/dL Calcium 9.2 (8.7-10.3) mg/dL AST 17 (13-35) U/L ALT 6 L (8-44) U/L Alkaline Phosphatase 95 (41-126) U/L Total Protein 6.4 (6.2-8.2) g/dL Albumin 2.8 L (3.8-4.9) g/dL Current Medications Generic Name Dose Route Start Last Admin Trade Name Freq PRN Reason Stop Dose Admin Hydromorphone HCl 0.5 mg 05/09/24 17:08 05/11/24 07:39 Hydromorphone 0.5 Mg/0.5 Ml Syringe IVP 0.5 mg Q3HR PRN Administration Moderate Pain (Scale 4 to 6) Hydromorphone HCl 1 mg 05/09/24 17:08 Hydromorphone 1 Mg/Ml 1 Ml Syringe IVP Q3HR PRN Severe Pain (Scale 7 to 10) Sodium Chloride 1,000 mls @ 130 mls/hr 05/09/24 16:30 05/11/24 06:52 Saline 0.9% IV Not Given .[id number] ANABELLA Piperacillin Sod/Tazobactam 100 mls @ 25 mls/hr 05/09/24 16:30 05/11/24 07:40 Sod 3.375 gm/ Sodium Chloride IVPB 25 mls/hr Q8HR ANABELLA Administration Protocol Naloxone HCl 0.2 mg 05/09/24 17:08 Naloxone 0.4 Mg/Ml 1 Ml Vial IV Q2M PRN Opioid Reversal Ondansetron HCl 4 mg 05/09/24 17:08 05/11/24 07:39 Ondansetron 4 Mg/2 Ml Vial IVP 4 mg Q8HR PRN Administration Nausea And Vomiting Pantoprazole Sodium 40 mg 05/09/24 22:15 05/11/24 07:39 Pantoprazole 40 Mg/10 Ml Vial IVP 40 mg DAILY ANABELLA Administration Intake and Output 05/10/24 05/11/24 05/11/24 22:59 06:59 14:59 Output Total 450 750 Balance -450 -750 Output: Urine 450 750 Other: Voiding Method External Catheter # Voids 1 05/11/24 05:23 05/11/24 05:23
--- NOTE | 2024-05-11 12:17 | P.PN ---
Subjective Progress Note Date: 05/11/24 CHIEF COMPLAINT: Diverticulitis HISTORY OF PRESENT ILLNESS: Patient reports that she is feeling better today. Pain is decreased. Denies any nausea or vomiting. Denies any flatus. Afebrile. Hypotension improved. WBC about the same at 14.86. Patient seen by cardiology service Patient seen and examined with Dr. Valles PHYSICAL EXAM: VITAL SIGNS: Reviewed. GENERAL: Well-developed in no acute distress. ABDOMEN: Soft. Nondistended. Tenderness with palpation across lower abdomen NEUROLOGIC: Alert and oriented. Cranial nerves II through XII grossly intact. ASSESSMENT: 1. Acute sigmoid diverticulitis with microperforation 2. Prior history of diverticulitis x 1 3. Myocardial infarction with coronary artery disease and cardiac stent placed in August 2023 4. Recent AICD, April 19, 2024 PLAN: -Continue to monitor -Keep patient n.p.o. except for ice chips and popsicles -Continue IV antibiotics -Continue to hold Plavix -Repeat CBC in a.m. Physician Welfare Administrator note has been reviewed by physician. Signing provider agrees with the documented findings, assessment, and plan of care. Objective - Vital Signs Vital signs: Vital Signs Temp 98.0 F 05/11/24 07:23 Pulse 67 05/11/24 07:23 Resp 16 05/11/24 07:23 BP 138/74 05/11/24 07:23 Pulse Ox 95 05/11/24 07:23 FiO2 Intake & Output 05/10/24 05/11/24 05/11/24 18:59 06:59 18:59 Output Total 1000 750 Balance -1000 -750 Output: Urine 1000 750 Other: Voiding Method External Catheter External Catheter External Catheter # Voids 1 - Labs CBC & Chem 7: 05/11/24 05:23 05/11/24 05:23 Labs: Abnormal Lab Results - Last 24 Hours (Table) 05/10/24 05/11/24 05/11/24 Range/Units 13:43 05:23 05:23 WBC 14.86 H (4.50-10.00) X 10*3/uL Hgb 11.8 L (12.0-15.0) g/dL MCH 25.1 L (27.0-32.0) pg MCHC 29.8 L (32.0-37.0) g/dL RDW 14.6 H (11.5-14.5) % MPV 9.1 L (9.5-12.2) FL Immature Gran # 0.10 H (0.00-0.04) X 10*3/uL Neutrophils # 12.18 H (1.80-7.70) X 10*3/uL Monocytes # 1.28 H (0.20-1.00) X 10*3/uL Eosinophils # 0 L (0.04-0.35) X 10*3/uL Carbon Dioxide 18.2 L (21.6-31.8) mmol/L Anion Gap 14.80 H (4.00-12.00) mmol/L BUN/Creatinine Ratio 28.17 H (12.00-20.00) Ratio ALT 6 L (8-44) U/L Albumin 2.8 L (3.8-4.9) g/dL Globulin 3.6 H (1.6-3.3) g/dL Albumin/Globulin Ratio 0.78 L (1.60-3.17) Ratio HDL Cholesterol 29.70 L (40.00-60.00) mg/dL Urine Glucose (UA) 4+ H (Negative) Urine Ketones 1+ H (Negative) Urine Blood Trace H (Negative) Ur Leukocyte Esterase Trace H (Negative) Urine RBC 6 H (0-5) /hpf Urine WBC 7 H (0-5) /hpf Calcium Oxalate Crystal Occasional H (None) /hpf Urine Mucus Rare H (None) /hpf Urine Yeast (Budding) Occasional H (None) /hpf
--- NOTE | 2024-05-11 12:40 | P.PN ---
Subjective Progress Note Date: 05/11/24 Patient is a 73-year-old female with a history of CAD (stent placement in August 2023), defibrillator placement, hypertension, hyperlipidemia, A-fib who came in for abdominal pain that has been occurring for 3 weeks. She reports that the pain occurs on the right and left lower quadrants, is intermittent and sharp with an intensity of 7/10 per episode and is worse with movement. The pain radiated to the leg yesterday which caused her to seek care. There is an associated nausea, chills, and constipation. She denies vomiting, fever, diarrhea, hematochezia, hematemesis, melena, loss of appetite, night sweats, chest pain, shortness of breath, or new onset cough. WBC is elevated at 14.9. CT shows acute diverticulitis of sigmoid colon positive for perforation, no obstruction, no intraperitoneal fluid, no abscess with left hydronephrosis and left hydroureter secondary to inflammation of the colon, and a 5 to 6 cm renal calculus. 05/11. Patient seen and examined. Blood work done this morning showed WBC 14.86, hemoglobin 11.8, sodium 140, potassium 4.5, BUN 16.9, creatinine 0.6. Still having abdominal pain, no nausea or vomiting REVIEW OF SYSTEMS: CONSTITUTIONAL: No fever, no malaise,. CARDIOVASCULAR: No chest pain, no palpitations, no syncope. PULMONARY: No shortness of breath, no cough, GASTROINTESTINAL: As mentioned above NEUROLOGICAL: No headaches, no weakness, PHYSICAL EXAMINATION: GENERAL: The patient is alert and oriented x3, not in any acute distress. Well developed, well nourished. HEENT: Pupils are round and equally reacting to light. EOMI. No scleral icterus. No conjunctival pallor. Normocephalic, atraumatic. No pharyngeal erythema. No thyromegaly. CARDIOVASCULAR: S1 and S2 present. No murmurs, rubs, or gallops. PULMONARY: Chest is clear to auscultation, no wheezing or crackles. ABDOMEN: Tenderness left lower quadrant, nondistended, normoactive bowel sounds. No palpable organomegaly. MUSCULOSKELETAL: No joint swelling or deformity. EXTREMITIES: No cyanosis, clubbing, or pedal edema. NEUROLOGICAL: Gross neurological examination did not reveal any focal deficits. SKIN: No rashes. Assessment and plan #. Abdominal pain due to acute diverticulitis with perforation Sepsis Monitor CBC Monitor CMP -Pain control with Dilaudid 1 mg IV push every 3 hours as needed -Continue with Zofran 40 mg IV push every 8 hours as needed for nausea and vomiting -Continue with Zosyn 3.375 g 100 mL IV piggyback every 8 hours -Continue with 0.9% NaCl IV 130 mL/h -Consult surgery -CBC at a.m. #. Thrombocytosis Patient is currently stable. And has no signs and symptoms of active bleeding -Will monitor for now. CBC at a.m. Chronic conditions: A-fib, CAD with 1 stent placement, hypertension, hyperlipidemia, diabetes, osteoarthritis, osteopenia DVT prophylaxis: Lovenox 40 mg SQ daily Labs and medication were reviewed.. Continue same treatment. Continue with symptomatic treatment. Resume home medication. Monitor labs and vitals. DVT and GI prophylaxis. Further recommendations as per clinical course of the patient Dictation was produced using [employer] dictation software. please excuse any grammatical, word or spelling errors. Objective - Vital Signs Vital signs: Vital Signs Temp 98.0 F 05/11/24 07:23 Pulse 67 05/11/24 07:23 Resp 16 05/11/24 07:23 BP 138/74 05/11/24 07:23 Pulse Ox 95 05/11/24 07:23 FiO2 Intake & Output 05/10/24 05/11/24 05/11/24 18:59 06:59 18:59 Output Total 1000 750 Balance -1000 -750 Output: Urine 1000 750 Other: Voiding Method External Catheter External Catheter # Voids 1 - Labs CBC & Chem 7: 05/11/24 05:23 05/11/24 05:23 Labs: Abnormal Lab Results - Last 24 Hours (Table) 05/10/24 05/11/24 05/11/24 Range/Units 13:43 05:23 05:23 WBC 14.86 H (4.50-10.00) X 10*3/uL Hgb 11.8 L (12.0-15.0) g/dL MCH 25.1 L (27.0-32.0) pg MCHC 29.8 L (32.0-37.0) g/dL RDW 14.6 H (11.5-14.5) % MPV 9.1 L (9.5-12.2) FL Immature Gran # 0.10 H (0.00-0.04) X 10*3/uL Neutrophils # 12.18 H (1.80-7.70) X 10*3/uL Monocytes # 1.28 H (0.20-1.00) X 10*3/uL Eosinophils # 0 L (0.04-0.35) X 10*3/uL Carbon Dioxide 18.2 L (21.6-31.8) mmol/L Anion Gap 14.80 H (4.00-12.00) mmol/L BUN/Creatinine Ratio 28.17 H (12.00-20.00) Ratio ALT 6 L (8-44) U/L Albumin 2.8 L (3.8-4.9) g/dL Globulin 3.6 H (1.6-3.3) g/dL Albumin/Globulin Ratio 0.78 L (1.60-3.17) Ratio HDL Cholesterol 29.70 L (40.00-60.00) mg/dL Urine Glucose (UA) 4+ H (Negative) Urine Ketones 1+ H (Negative) Urine Blood Trace H (Negative) Ur Leukocyte Esterase Trace H (Negative) Urine RBC 6 H (0-5) /hpf Urine WBC 7 H (0-5) /hpf Calcium Oxalate Crystal Occasional H (None) /hpf Urine Mucus Rare H (None) /hpf Urine Yeast (Budding) Occasional H (None) /hpf
[2024-05-11] MEDS: HYDROmorphone 1 MG/ML 1 ML SYRINGE IVP PRN (14:18)
[2024-05-11] MEDS: ATORVASTATIN 40 MG TAB PO SCH (20:26)
--- NOTE | 2024-05-11 21:30 | P.CONS ---
History of Present Illness - Reason for Consult Consult date: 05/11/24 Diverticulitis Requesting physician: Chadwick Stewart - Chief Complaint Abdominal pain x 3 weeks - History of Present Illness Patient is a 73-year-old female past medical his significant for hypertension hyperlipidemia MA atrial fibrillation and diverticulitis many years ago presenting to the hospital for evaluation of abdominal pain that apparently has been going on for about 3 weeks patient abdominal pain has been mostly lower abdominal area mostly to the left side describing the pain to be sharp that has progressed to get worse in severity to be almost 10 out of 10 at the time of presentation to the hospital patient symptom was associated with nausea but no v omiting denies having any diarrhea however constipated also have some urinary frequency but no burning patient did have some chills denies high-grade fever on presentation to hospital the patient was initially afebrile subsequently did have low-grade fever of 100.2 F patient was nontachycardic hypotensive or hypoxic no need for supplemental oxygen white count of 14.9 with a left shift kidney function has been normal liver isms are normal urine has been mildly positive patient did have a CT of abdominal pelvis marked acute diverticulitis of the sigmoid colon with droplets of extra luminal air consistent with perforation no bowel obstruction no discrete abscess patient was started on Zosyn infectious he was consulted for further management of antibiotic therapy Review of Systems Positive point and negatives has been mentioned in the HPI, complete review of systems was performed and all other systems are negative Past Medical History Past Medical History: Atrial Fibrillation, Hyperlipidemia, Hypertension, Myocardial Infarction (MA) Last Myocardial Infarction Date:: 09/07/2023 History of Any Multi-Drug Resistant Organisms: None Reported Past Surgical History: No Surgical Hx Reported Additional Past Surgical History / Comment(s): Cardiac stents Past Anesthesia/Blood Transfusion Reactions: No Reported Reaction Past Psychological History: No Psychological Hx Reported Smoking Status: Never smoker Past Alcohol Use History: None Reported, Unable to Obtain Past Drug Use History: None Reported Medications and Allergies Home Medications Medication Instructions Recorded Confirmed Type Aspirin EC [Ecotrin Low Dose] 81 mg PO HS 12/02/17 05/09/24 History Atorvastatin [Lipitor] 40 mg PO DAILY #90 tab 09/11/23 05/09/24 Rx Clopidogrel [Plavix] 75 mg PO DAILY 30 Days #30 tab 09/11/23 05/09/24 Rx lisinopriL [Zestril] 20 mg PO BID #60 tab 12/29/23 08/26/24 Rx Empagliflozin [Jardiance] 10 mg PO DAILY 04/15/24 05/09/24 History Spironolactone 25 mg PO DAILY 04/15/24 05/09/24 History Metoprolol Succinate (ER) [Toprol 25 mg PO DAILY 05/09/24 05/09/24 History XL] Nitroglycerin Sl Tabs [Nitrostat] 0.4 mg SL Q5M PRN 05/09/24 05/09/24 History Allergies Allergy/AdvReac Type Severity Reaction Status Date / Time Iodinated Contrast Media Allergy Wheezing/hi Verified 05/09/24 14:37 ves iodine Allergy Wheezing/hi Verified 05/09/24 14:37 ves Physical Exam Vitals: Vital Signs Temp Pulse Resp BP Pulse Ox 05/11/24 07:23 98.0 F 67 16 138/74 95 05/11/24 00:25 98.1 F 71 15 148/76 92 L 05/10/24 19:40 98.1 F 77 15 134/76 96 05/10/24 15:08 98.5 F 74 17 126/71 94 L Intake and Output 05/10/24 05/11/24 05/11/24 22:59 06:59 14:59 Output Total 450 750 Balance -450 -750 Output: Urine 450 750 Other: Voiding Method External Catheter External Catheter # Voids 1 GENERAL DESCRIPTION: Elderly female lying in bed, no distress. No tachypnea or accessory muscle of respiration use. HEENT: Shows Pallor , no scleral icterus. Oral mucous membrane is dry. No pharyngeal erythema or thrush NECK: Trachea central, no thyromegaly. LUNGS: Unlabored breathing. Clear to auscultation anteriorly. No wheeze or crackle. HEART: S1, S2, regular rate and rhythm. No loud murmur ABDOMEN: Soft, mild tenderness and guarding EXTREMITIES: No edema of feet. SKIN: No rash, no masses palpable. NEUROLOGICAL: The patient is awake, alert, oriented x3, mood and affect normal. Results CBC & Chem 7: 05/11/24 05:23 05/11/24 05:23 Labs: Abnormal Lab Results - Last 24 Hours (Table) 05/10/24 05/11/24 05/11/24 Range/Units 13:43 05:23 05:23 WBC 14.86 H (4.50-10.00) X 10*3/uL Hgb 11.8 L (12.0-15.0) g/dL MCH 25.1 L (27.0-32.0) pg MCHC 29.8 L (32.0-37.0) g/dL RDW 14.6 H (11.5-14.5) % MPV 9.1 L (9.5-12.2) FL Immature Gran # 0.10 H (0.00-0.04) X 10*3/uL Neutrophils # 12.18 H (1.80-7.70) X 10*3/uL Monocytes # 1.28 H (0.20-1.00) X 10*3/uL Eosinophils # 0 L (0.04-0.35) X 10*3/uL Carbon Dioxide 18.2 L (21.6-31.8) mmol/L Anion Gap 14.80 H (4.00-12.00) mmol/L BUN/Creatinine Ratio 28.17 H (12.00-20.00) Ratio ALT 6 L (8-44) U/L Albumin 2.8 L (3.8-4.9) g/dL Globulin 3.6 H (1.6-3.3) g/dL Albumin/Globulin Ratio 0.78 L (1.60-3.17) Ratio HDL Cholesterol 29.70 L (40.00-60.00) mg/dL Urine Glucose (UA) 4+ H (Negative) Urine Ketones 1+ H (Negative) Urine Blood Trace H (Negative) Ur Leukocyte Esterase Trace H (Negative) Urine RBC 6 H (0-5) /hpf Urine WBC 7 H (0-5) /hpf Calcium Oxalate Crystal Occasional H (None) /hpf Urine Mucus Rare H (None) /hpf Urine Yeast (Budding) Occasional H (None) /hpf Assessment and Plan (1) Perforation of sigmoid colon due to diverticulitis Current Visit: Yes Status: Acute Code(s): K57.20 - DVTRCLI OF LG INT W PERFORATION AND ABSCESS W/O BLEEDING SNOMED Code(s): 2224598870170194 (2) Diverticulitis Current Visit: Yes Status: Acute Code(s): K57.92 - DVTRCLI OF INTEST, PART UNSP, W/O PERF OR ABSCESS W/O BLEED SNOMED Code(s): 525190011 Plan: 1patient presented to the hospital with sepsis in this patient who did have fever elevated white count source is complicated diverticulitis with microperforation but no evidence of any drainable abscess on the CT we will need to cover for the enteric gram-negative both aerobes and anaerobes. 2Zosyn 3.375 g every 8 hours will provide adequate antibiotic coverage in addition to the bowel rest Clinical course of her illness and how to prevent complication discussed in detail with the patient and the daughter We will follow on clinical condition and cultures to further adjust medication if needed Thank you for this consultation we will follow the patient along with you Dictation was produced using [employer] dictation software. please excuse any grammatical, word or spelling errors. Time with Patient: Greater than 30
[2024-05-12 10:57] LABS: HGB 11.6 g/dL (12.0-15.0); MCH 24.9 pg (27.0-32.0); MCHC 29.7 g/dL (32.0-37.0); MCV 83.7 FL (80.0-97.0); Mean Platelet Volume 8.6 FL (9.5-12.2); NRBC Per 100 WBC 0 X 10*3/uL (0.00-0.01); Platelet Count 391 X 10*3/uL (140-440); RBC 4.66 X 10*6/uL (4.10-5.20); RDW 14.7 % (11.5-14.5); WBC 13.13 X 10*3/uL (4.50-10.00)
[2024-05-12 11:20] LABS: ALT 6 U/L (8-44); AST 18 U/L (13-35); Albumin 2.8 g/dL (3.8-4.9); Albumin/Globulin Ratio 0.76 Ratio (1.60-3.17); Alkaline Phosphatase 87 U/L (41-126); Blood Urea Nitrogen 17.1 mg/dL (9.0-27.0); Carbon Dioxide 19.1 mmol/L (21.6-31.8); Chloride 106 mmol/L (96-109); Globulin 3.7 g/dL (1.6-3.3); Glucose 76 mg/dL (70-110); Potassium 4.3 mmol/L (3.5-5.5); Sodium 139 mmol/L (135-145); Total Bilirubin 0.4 mg/dL (0.3-1.2); Total Protein 6.5 g/dL (6.2-8.2)
--- NOTE | 2024-05-12 13:21 | P.PN ---
Subjective HISTORY OF PRESENT ILLNESS: This is a 73-year-old female with a past medical history significant for coronary artery disease with previous stenting, hypertension, hyperlipidemia, and ischemic cardiomyopathy with recent ICD implantation. Patient follows in the office with Dr. Lopez. We have been asked to see the patient in consultation for hypotension. Patient examined at the bedside. Patient presented to the hospital with a chief complaint of abdominal pain. Patient was found to have diverticulitis with microperforation. She is currently NPO and is being followed by general surgery. Patient currently denies chest pain or pressure. She denies shortness of breath. She does report port a 40 pound weight loss recently. However she states some of this was intentional but over the past week her weight loss was unintentional due to feeling unwell. She denies any chest pain or pressure. Denies any dizziness or lightheadedness. DIAGNOSTICS: - Laboratory data: WBC 14.86. Hemoglobin 11.8. Platelet count 421. Sodium 140. Potassium 4.5. BUN 16.9. Creatinine 0.6. - Current home cardiac medications include metoprolol succinate 25 mg daily, Jardiance 10 mg daily, aspirin 81 mg at night, lisinopril 20 mg twice a day, spironolactone 25 mg daily, Plavix 75 mg daily, Lipitor 40 mg daily - Cardiac catheterization history: August 2023 with stenting of the proximal LAD May 12, 2024 Patient examined this morning the bedside. Patient denies chest pain or pressure. She denies shortness of breath. Vital signs are stable. Blood pressure 129/67. She has been followed by general surgery and has been started on clear liquid diet. PHYSICAL EXAM: VITAL SIGNS: Reviewed. GENERAL: Well-developed in no acute distress. HEENT: Head is normocephalic. Pupils are equal, round. Sclerae anicteric. Mucous membranes of the mouth are moist. Neck supple. No JVD or thyromegaly LUNGS: Respirations even and unlabored. Lungs essentially clear to auscultation bilaterally. HEART: Regular rate and rhythm. S1 and S2 heard. ABDOMEN: Soft. Nondistended. Tenderness with palpation. EXTREMITIES: Normal range of motion. No clubbing or cyanosis. Peripheral pulses intact. No lower extremity edema NEUROLOGIC: Awake and alert. Oriented x 3. ASSESSMENT: Acute diverticulitis with microperforation Coronary artery disease with previous PCI, most recently to proximal LAD in August 2023 Ischemic cardiomyopathy 30% with recent ICD implantation Hypotension, likely secondary to acute infectious process History of hypertension History of hyperlipidemia PLAN: Echocardiogram remains pending Continue aspirin and atorvastatin. Okay to hold Plavix at this time Continue to hold additional cardiac medications secondary to hypotension during hospitalization Continue to monitor blood pressure Decrease IV fluids to 50 cc an hour Further recommendations pending patient course Nurse practitioner note has been reviewed by physician. Signing provider agrees with the documented findings, assessment, and plan of care documented by [employer]ECT[employer] DESIGNER as a scribe. Objective - Vital Signs Vital signs: Vital Signs Temp 97.9 F 05/12/24 07:17 Pulse 74 05/12/24 07:17 Resp 17 05/12/24 07:17 BP 129/67 05/12/24 07:17 Pulse Ox 94 L 05/12/24 07:17 FiO2 Intake & Output 05/11/24 05/12/24 05/12/24 18:59 06:59 18:59 Output Total 450 Balance -450 Output: Urine 450 Other: Voiding Method External Catheter # Voids 1 - Labs CBC & Chem 7: 05/12/24 06:29 05/12/24 06:29 Labs: Abnormal Lab Results - Last 24 Hours (Table) 05/11/24 05/11/24 Range/Units 05:23 05:23 WBC 14.86 H (4.50-10.00) X 10*3/uL Hgb 11.8 L (12.0-15.0) g/dL MCH 25.1 L (27.0-32.0) pg MCHC 29.8 L (32.0-37.0) g/dL RDW 14.6 H (11.5-14.5) % MPV 9.1 L (9.5-12.2) FL Immature Gran # 0.10 H (0.00-0.04) X 10*3/uL Neutrophils # 12.18 H (1.80-7.70) X 10*3/uL Monocytes # 1.28 H (0.20-1.00) X 10*3/uL Eosinophils # 0 L (0.04-0.35) X 10*3/uL Carbon Dioxide 18.2 L (21.6-31.8) mmol/L Anion Gap 14.80 H (4.00-12.00) mmol/L BUN/Creatinine Ratio 28.17 H (12.00-20.00) Ratio ALT 6 L (8-44) U/L Albumin 2.8 L (3.8-4.9) g/dL Globulin 3.6 H (1.6-3.3) g/dL Albumin/Globulin Ratio 0.78 L (1.60-3.17) Ratio HDL Cholesterol 29.70 L (40.00-60.00) mg/dL
--- NOTE | 2024-05-12 13:27 | CA ---
Transthoracic Echo Report Name: Alicia Lemons Age: 73 Gender: F : 1950 Exam Date: 05/12/2024 09:27 Exam Location: [facility] Ht (in): 63 Wt (lb): 160 Ordering Physician: Zelda Workman Attending/Referring Phys: [id number], Jacinta Fixed Route Bus Operator Acacia Alfonso RDCS Procedure CPT: Indications: LV function Cardiac Hx: Technical Quality: Fair Contrast 1: Total Dose (mL): Contrast 2: Total Dose (mL): MEASUREMENTS (Male / Female) Normal Values 2D ECHO LV Diastolic Diameter PLAX 4.1 cm 4.2 - 5.9 / 3.9 - 5.3 cm LV Systolic Diameter PLAX 3.5 cm IVS Diastolic Thickness 1.1 cm 0.6 - 1.0 / 0.6 - 0.9 cm LVPW Diastolic Thickness 1.1 cm 0.6 - 1.0 / 0.6 - 0.9 cm LV Relative Wall Thickness 0.5 LVOT Diameter 1.9 cm LV Diastolic Volume MOD BP 120.1 cm??? 67 - 155 / 56 - 104 cm??? LV Systolic Volume MOD BP 69.5 cm??? 22 - 58 / 19 - 49 cm??? LV Ejection Fraction MOD BP 42.2 % >= 55 % LV Cardiac Index MOD BP 2117.5 cm???/min???m??? LV Diastolic Volume MOD 4C 107.2 cm??? LV Systolic Volume MOD 4C 64.0 cm??? LV Ejection Fraction MOD 4C 40.3 % LV Cardiac Index MOD 4C 1805.8 cm???/min???m??? LV Diastolic Length 4C 8.2 cm LV Systolic Length 4C 7.2 cm LV Diastolic Volume MOD 2C 131.2 cm??? LV Systolic Volume MOD 2C 75.3 cm??? LV Ejection Fraction MOD 2C 42.6 % LV Cardiac Index MOD 2C 2338.2 cm???/min???m??? LV Diastolic Length 2C 8.4 cm LV Systolic Length 2C 7.4 cm LA Volume 80.0 cm??? 18 - 58 / 22 - 52 cm??? LA Volume Index 44.0 cm???/m??? 16 - 28 cm???/m??? Ascending Aorta Diameter 3.7 cm DOPPLER AV Peak Velocity 205.4 cm/s AV Peak Gradient 16.9 mmHg AV Mean Velocity 137.9 cm/s AV Mean Gradient 8.7 mmHg AV Velocity Time Integral 44.6 cm LVOT Peak Velocity 125.9 cm/s LVOT Peak Gradient 6.3 mmHg LVOT Velocity Time Integral 25.4 cm LVOT Stroke Volume 71.7 cm??? LVOT Stroke Volume Index 40.8 ml/m??? LVOT Cardiac Index 3000.4 cm???/min???m??? AV Area Cont Eq vti 1.6 cm??? AV Area Cont Eq pk 1.7 cm??? MV Area PHT 4.0 cm??? Mitral E Point Velocity 66.5 cm/s Mitral A Point Velocity 90.0 cm/s Mitral E to A Ratio 0.7 MV Deceleration Time 191.4 ms TR Peak Velocity 254.8 cm/s TR Peak Gradient 26.0 mmHg Right Atrial Pressure 5.0 mmHg Pulmonary Artery Systolic Pressu 31.0 mmHg Right Ventricular Systolic Press 31.0 mmHg PV Peak Velocity 94.7 cm/s PV Peak Gradient 3.6 mmHg FINDINGS Left Ventricle Left ventricular ejection fraction is estimated at 40-45 %. Mildly increased septal wall thickness. Mildly increased posterior wall thickness. Moderately increased left ventricular diastolic volume. Moderately increased left ventricular systolic volume. Moderately decreased left ventricular ejection fraction with global hypokinesis. Right Ventricle Mild right ventricular dilatation with reduced function. Right ventricular systolic pressure within normal limits. Right Atrium Right atrial dilatation. Catheter/pacemaker wire in the right atrial cavity. Left Atrium Severely increased left atrial volume. Mildly increased left atrial area. Mitral Valve Structurally normal mitral valve. No evidence for mitral valve prolapse. No mitral stenosis. Mild mitral regurgitation. Aortic Valve Aortic valve not well visualized. No aortic stenosis. Trace aortic regurgitation. Tricuspid Valve Structurally normal tricuspid valve. No tricuspid stenosis. Trace tricuspid regurgitation. Pulmonic Valve Pulmonic valve not well visualized. No pulmonic stenosis. No pulmonic regurgitation. Pericardium No pericardial effusion. Aorta Normal size aortic root and proximal ascending aorta. CONCLUSIONS Left ventricular ejection fraction 40-45% Mildly increased left ventricular wall thickness Mild mitral regurgitation Trace tricuspid regurgitation No pericardial effusion Previewed by: Dr. Juan Lopez DO (Electronically Signed) Final Date: 12 May 2024 13:27
[2024-05-12] MEDS: PANTOPRAZOLE 40 MG/10 ML VIAL IVP SCH (13:34)
--- NOTE | 2024-05-12 13:55 | P.PN ---
Subjective Progress Note Date: 05/12/24 Patient is a 73-year-old female with a history of CAD (stent placement in August 2023), defibrillator placement, hypertension, hyperlipidemia, A-fib who came in for abdominal pain that has been occurring for 3 weeks. She reports that the pain occurs on the right and left lower quadrants, is intermittent and sharp with an intensity of 7/10 per episode and is worse with movement. The pain radiated to the leg yesterday which caused her to seek care. There is an associated nausea, chills, and constipation. She denies vomiting, fever, diarrhea, hematochezia, hematemesis, melena, loss of appetite, night sweats, chest pain, shortness of breath, or new onset cough. WBC is elevated at 14.9. CT shows acute diverticulitis of sigmoid colon positive for perforation, no obstruction, no intraperitoneal fluid, no abscess with left hydronephrosis and left hydroureter secondary to inflammation of the colon, and a 5 to 6 cm renal calculus. 05/11. Patient seen and examined. Blood work done this morning showed WBC 14.86, hemoglobin 11.8, sodium 140, potassium 4.5, BUN 16.9, creatinine 0.6. Still having abdominal pain, no nausea or vomiting 05/12. Patient seen and examined. Patient complains of pain in lower quadrants of abdomen but tolerable with pain medication. She also reports her throat bur timur when lying down due to her reflux. She denies any nausea, vomiting, diarrhea, hematemesis, or hematochezia. WBC 13.13 hemoglobin 11.6, sodium 139, potassium 4.3, BUN 17.1, creatinine 0.5. TTE done today shows ejection fraction 40 to 45% with no pericardial effusion. CONSTITUTIONAL: No fever, no malaise,. CARDIOVASCULAR: No chest pain, no palpitations, no syncope. PULMONARY: No shortness of breath, no cough, GASTROINTESTINAL: As mentioned above NEUROLOGICAL: No headaches, no weakness, PHYSICAL EXAMINATION: GENERAL: The patient is alert and oriented x3, not in any acute distress. Well developed, well nourished. HEENT: Pupils are round and equally reacting to light. EOMI. No scleral icterus. No conjunctival pallor. Normocephalic, atraumatic. No pharyngeal erythema. No thyromegaly. CARDIOVASCULAR: S1 and S2 present. No murmurs, rubs, or gallops. PULMONARY: Chest is clear to auscultation, no wheezing or crackles. ABDOMEN: Tenderness left lower quadrant, nondistended, normoactive bowel sounds. No palpable organomegaly. MUSCULOSKELETAL: No joint swelling or deformity. EXTREMITIES: No cyanosis, clubbing, or pedal edema. NEUROLOGICAL: Gross neurological examination did not reveal any focal deficits. SKIN: No rashes. Assessment and plan #. Abdominal pain due to acute diverticulitis with perforation Sepsis -Monitor CBC -Monitor CMP -Pain control with Dilaudid 1 mg IV push every 3 hours as needed -Continue with Zofran 40 mg IV push every 8 hours as needed for nausea and vomiting -Continue with Zosyn 3.375 g 100 mL IV piggyback every 8 hours -Continue with 0.9% NaCl IV 130 mL/h -Per surgery, encourage ambulation and placed on clear liquid diet. -CBC at a.m. #. Thrombocytosis, resolved Patient is currently stable. And has no signs and symptoms of active bleeding -Will monitor for now. CBC at a.m. #. CHF not in exacerbation (ejection fraction 40 to 45% on echo in April 2024) Patient is stable and asymptomatic -Per cardiology, decrease IV fluids to 50 cc/h, hold antihypertensive medication, continue aspirin and atorvastatin, hold Plavix, and continue to monitor blood pressure Chronic conditions: A-fib, CAD with 1 stent placement, hypertension, hyperlipidemia, diabetes, osteoarthritis, osteopenia Attestation I have seen and examined this patient with my resident , discussed the same with the resident/FRITZ, and agree with the dictator's assessment and plan as written GENERAL: The patient is alert and oriented x3, not in any acute distress. Well developed, well nourished. HEENT: Pupils are round and equally reacting to light. EOMI. No scleral icterus. No conjunctival pallor. Normocephalic, atraumatic. No pharyngeal erythema. No thyromegaly. CARDIOVASCULAR: S1 and S2 present. No murmurs, rubs, or gallops. PULMONARY: Chest is clear to auscultation, no wheezing or crackles. ABDOMEN: Soft, tenderness left lower quadrant, normoactive bowel sounds. No palpable organomegaly. MUSCULOSKELETAL: No joint swelling or deformity. EXTREMITIES: No cyanosis, clubbing, or pedal edema. NEUROLOGICAL: Gross neurological examination did not reveal any focal deficits. SKIN: No rashes. Continue IV antibiotics, started on clear liquid diet Dr. Chadwick leal Objective - Vital Signs Vital signs: Vital Signs Temp 97.9 F 05/12/24 07:17 Pulse 74 05/12/24 07:17 Resp 17 05/12/24 07:17 BP 129/67 05/12/24 07:17 Pulse Ox 94 L 05/12/24 07:17 FiO2 Intake & Output 05/11/24 05/12/24 05/12/24 18:59 06:59 18:59 Output Total 450 Balance -450 Output: Urine 450 Other: Voiding Method External Catheter # Voids 1 - Labs CBC & Chem 7: 05/12/24 06:29 05/13/24 07:35 Labs: Abnormal Lab Results - Last 24 Hours (Table) 05/11/24 05/11/24 Range/Units 05:23 05:23 WBC 14.86 H (4.50-10.00) X 10*3/uL Hgb 11.8 L (12.0-15.0) g/dL MCH 25.1 L (27.0-32.0) pg MCHC 29.8 L (32.0-37.0) g/dL RDW 14.6 H (11.5-14.5) % MPV 9.1 L (9.5-12.2) FL Immature Gran # 0.10 H (0.00-0.04) X 10*3/uL Neutrophils # 12.18 H (1.80-7.70) X 10*3/uL Monocytes # 1.28 H (0.20-1.00) X 10*3/uL Eosinophils # 0 L (0.04-0.35) X 10*3/uL Carbon Dioxide 18.2 L (21.6-31.8) mmol/L Anion Gap 14.80 H (4.00-12.00) mmol/L BUN/Creatinine Ratio 28.17 H (12.00-20.00) Ratio ALT 6 L (8-44) U/L Albumin 2.8 L (3.8-4.9) g/dL Globulin 3.6 H (1.6-3.3) g/dL Albumin/Globulin Ratio 0.78 L (1.60-3.17) Ratio HDL Cholesterol 29.70 L (40.00-60.00) mg/dL
--- NOTE | 2024-05-12 15:24 | P.PN ---
Subjective Progress Note Date: 05/12/24 Principal diagnosis: Reason for follow-up with complicated diverticulitis Patient is a 73-year-old female past medical his significant for hypertension hyperlipidemia ID atrial fibrillation and diverticulitis many years ago presenting to the hospital for evaluation of abdominal pain that apparently has been going on for about 3 weeks, patient will be diagnosed with a acute diverticulitis with microperforation but no abscess. On today's evaluation that is 05/12/2024, patient has been afebrile, patient is breathing comfortably and is currently on room air, patient denies having any significant cough no chest pain shortness of breath, patient denies nausea vomiting or diarrhea and abdominal pain has slightly decreased in intensity. Patient white count is down to 13.13, creatinine 0.5 Objective - Vital Signs Vital signs: Vital Signs Temp 97.9 F 05/12/24 07:17 Pulse 74 05/12/24 07:17 Resp 17 05/12/24 07:17 BP 129/67 05/12/24 07:17 Pulse Ox 94 L 05/12/24 07:17 FiO2 Intake & Output 05/11/24 05/12/24 05/12/24 18:59 06:59 18:59 Output Total 450 Balance -450 Output: Urine 450 Other: Voiding Method External Catheter # Voids 1 - Exam GENERAL DESCRIPTION: An elderly female lying in bed in no distress RESPIRATORY SYSTEM: Unlabored breathing , decreased breath sounds at bases HEART: S1 S2 regular rate and rhythm , ABDOMEN: Soft , mild tenderness EXTREMITIES: No edema feet - Labs CBC & Chem 7: 05/12/24 06:29 05/12/24 06:29 Labs: Abnormal Lab Results - Last 24 Hours (Table) 05/12/24 05/12/24 Range/Units 06:29 06:29 WBC 13.13 H (4.50-10.00) X 10*3/uL Hgb 11.6 L (12.0-15.0) g/dL MCH 24.9 L (27.0-32.0) pg MCHC 29.7 L (32.0-37.0) g/dL RDW 14.7 H (11.5-14.5) % MPV 8.6 L (9.5-12.2) FL Carbon Dioxide 19.1 L (21.6-31.8) mmol/L Anion Gap 13.90 H (4.00-12.00) mmol/L Creatinine 0.5 L (0.6-1.5) mg/dL BUN/Creatinine Ratio 34.20 H (12.00-20.00) Ratio ALT 6 L (8-44) U/L Albumin 2.8 L (3.8-4.9) g/dL Globulin 3.7 H (1.6-3.3) g/dL Albumin/Globulin Ratio 0.76 L (1.60-3.17) Ratio Assessment and Plan (1) Perforation of sigmoid colon due to diverticulitis Current Visit: Yes Status: Acute Code(s): K57.20 - DVTRCLI OF LG INT W PERFORATION AND ABSCESS W/O BLEEDING SNOMED Code(s): 7448125693416368 (2) Diverticulitis Current Visit: Yes Status: Acute Code(s): K57.92 - DVTRCLI OF INTEST, PART UNSP, W/O PERF OR ABSCESS W/O BLEED SNOMED Code(s): 169298365 Plan: 1patient presented to the hospital with sepsis in this patient who did have f ever elevated white count source is complicated diverticulitis with microperforation but no evidence of any drainable abscess on the CT we will need to cover for the enteric gram-negative both aerobes and anaerobes. 2patient white count is trending down, we will continue Zosyn 3.375 g every 8 hours and monitor clinical course closely Dictation was produced using [email or web address] dictation software. please excuse any grammatical, word or spelling errors. Time with Patient: Less than 30
[2024-05-12] MEDS: ENOXAPARIN 40 MG/0.4 ML SYRINGE SQ SCH (15:34)
--- NOTE | 2024-05-12 17:00 | P.PN ---
Subjective Progress Note Date: 05/12/24 CHIEF COMPLAINT: Diverticulitis HISTORY OF PRESENT ILLNESS: Patient reports that she is feeling better today. Pain is decreased. Denies any nausea or vomiting. Having flatus. Afebrile. WBC down from 14 to 13 Patient seen and examined with Dr. Valles PHYSICAL EXAM: VITAL SIGNS: Reviewed. GENERAL: Well-developed in no acute distress. ABDOMEN: Soft. Nondistended. minimal tenderness across lower abdomen NEUROLOGIC: Alert and oriented. Cranial nerves II through XII grossly intact. ASSESSMENT: 1. Acute sigmoid diverticulitis with microperforation 2. Prior history of diverticulitis x 1 3. Myocardial infarction with coronary artery disease and cardiac stent placed in August 2023 4. Recent AICD, April 19, 2024 PLAN: -Advance diet to clear liquids -Repeat CBC on Thursday -Continue antibiotics -Continue to hold Plavix Physician Tinner [employer] note has been reviewed by physician. Signing provider agrees with the documented findings, assessment, and plan of care. Objective - Vital Signs Vital signs: Vital Signs Temp 97.9 F 05/12/24 07:17 Pulse 74 05/12/24 07:17 Resp 17 05/12/24 07:17 BP 129/67 05/12/24 07:17 Pulse Ox 94 L 05/12/24 07:17 FiO2 Intake & Output 05/11/24 05/12/24 05/12/24 18:59 06:59 18:59 Output Total 450 Balance -450 Output: Urine 450 Other: Voiding Method External Catheter # Voids 1 - Labs CBC & Chem 7: 05/12/24 06:29 05/12/24 06:29
[2024-05-13 08:39] LABS: African American GFR (CKD) >90 (>60 ml/min/1.73 sqM); Anion Gap 6 mmol/L; Blood Urea Nitrogen 16 mg/dL (7-17); Calcium 8.6 mg/dL (8.4-10.2); Carbon Dioxide 22 mmol/L (22-30); Chloride 107 mmol/L (98-107); Glucose 75 mg/dL (74-99); Non-African American GFR(CKD) >90 (>60 ml/min/1.73 sqM); Potassium 3.9 mmol/L (3.5-5.1); Sodium 135 mmol/L (137-145)
--- NOTE | 2024-05-13 11:06 | P.PN ---
Subjective Progress Note Date: 05/13/24 Patient is improving. She states her abdominal pain is improved. On exam vital signs appear stable. Abdomen is soft. There is definitely decreased tenderness left lower quadrant. Resolving diverticulitis. Patient with received IV antibiotics. Objective - Vital Signs Vital signs: Vital Signs Temp 98.7 F 05/13/24 07:18 Pulse 64 05/13/24 07:18 Resp 16 05/13/24 07:18 BP 114/73 05/13/24 07:18 Pulse Ox 96 05/13/24 07:18 FiO2 Intake & Output 05/12/24 05/13/24 05/13/24 18:59 06:59 18:59 Output Total 900 300 Balance -900 -300 Output: Urine 900 300 Other: Voiding Method External Catheter # Bowel Movements 1 - Labs CBC & Chem 7: 05/12/24 06:29 05/13/24 07:35 Labs: Abnormal Lab Results - Last 24 Hours (Table) 05/12/24 05/13/24 Range/Units 06:29 07:35 Sodium 135 L (137-145) mmol/L Carbon Dioxide 19.1 L (21.6-31.8) mmol/L Anion Gap 13.90 H (4.00-12.00) mmol/L Creatinine 0.5 L (0.6-1.5) mg/dL BUN/Creatinine Ratio 34.20 H (12.00-20.00) Ratio ALT 6 L (8-44) U/L Albumin 2.8 L (3.8-4.9) g/dL Globulin 3.7 H (1.6-3.3) g/dL Albumin/Globulin Ratio 0.76 L (1.60-3.17) Ratio
--- NOTE | 2024-05-13 11:28 | P.PN ---
Subjective Progress Note Date: 05/13/24 Patient is a 73-year-old female with a history of CAD (stent placement in August 2023), defibrillator placement, hypertension, hyperlipidemia, A-fib who came in for abdominal pain that has been occurring for 3 weeks. She reports that the pain occurs on the right and left lower quadrants, is intermittent and sharp with an intensity of 7/10 per episode and is worse with movement. The pain radiated to the leg yesterday which caused her to seek care. There is an associated nausea, chills, and constipation. She denies vomiting, fever, diarrhea, hematochezia, hematemesis, melena, loss of appetite, night sweats, chest pain, shortness of breath, or new onset cough. WBC is elevated at 14.9. CT shows acute diverticulitis of sigmoid colon positive for perforation, no obstruction, no intraperitoneal fluid, no abscess with left hydronephrosis and left hydroureter secondary to inflammation of the colon, and a 5 to 6 cm renal calculus. 05/11. Patient seen and examined. Blood work done this morning showed WBC 14.86, hemoglobin 11.8, sodium 140, potassium 4.5, BUN 16.9, creatinine 0.6. Still having abdominal pain, no nausea or vomiting 05/12. Patient seen and examined. Patient complains of pain in lower quadrants of abdomen but tolerable with pain medication. She also reports her throat bur timur when lying down due to her reflux. She denies any nausea, vomiting, diarrhea, hematemesis, or hematochezia. WBC 13.13 hemoglobin 11.6, sodium 139, potassium 4.3, BUN 17.1, creatinine 0.5. TTE done today shows ejection fraction 40 to 45% with no pericardial effusion. 05/13 Patient seen and examined. Patient complains of improved pain in lower quadrants of abdomen and able to ambulate due to pain being tolerable. Reported to pass flatus, had a BM overnight. She denies any nausea, vomiting, diarrhea, hematemesis, or hematochezia. PHYSICAL EXAMINATION: GENERAL: The patient is alert and oriented x3, not in any acute distress. Well developed, well nourished. HEENT: Pupils are round and equally reacting to light. EOMI. No scleral icterus. No conjunctival pallor. Normocephalic, atraumatic. No pharyngeal erythema. No thyromegaly. CARDIOVASCULAR: S1 and S2 present. No murmurs, rubs, or gallops. PULMONARY: Chest is clear to auscultation, no wheezing or crackles. ABDOMEN: Tenderness left lower quadrant, nondistended, normoactive bowel sounds. No palpable organomegaly. MUSCULOSKELETAL: No joint swelling or deformity. EXTREMITIES: No cyanosis, clubbing, or pedal edema. NEUROLOGICAL: Gross neurological examination did not reveal any focal deficits. SKIN: No rashes. Assessment and plan #. Abdominal pain due to acute diverticulitis with perforation, resolving Sepsis -Monitor CBC -Monitor CMP -Full liquid diet -D/c fluids once diet started -Pain control with Dilaudid 1 mg IV push every 3 hours as needed -Continue with Zofran 40 mg IV push every 8 hours as needed for nausea and vomiting -Continue with Zosyn 3.375 g 100 mL IV piggyback every 8 hours -Continue with 0.9% NaCl IV 130 mL/h -Per surgery, encourage ambulation and continue antibiotics #. Thrombocytosis Patient is currently stable. And has no signs and symptoms of active bleeding -Will monitor for now -CBC at AM #. CHF not in exacerbation (ejection fraction 40 to 45% on echo in April 2024) Patient is stable and asymptomatic -Per cardiology, continue aspirin and atorvastatin. Resume plavix when okay with general surgery. Slowly reintroduce antihypertensive meds as BP improves. They will sign off. Chronic conditions: A-fib, CAD with 1 stent placement, hypertension, hyperlipidemia, diabetes, osteoarthritis, osteopenia Attestation I have seen and examined this patient with my resident , discussed the same with the resident/FRITZ, and agree with the dictator's assessment and plan as written GENERAL: The patient is alert and oriented x3, not in any acute distress. Well developed, well nourished. HEENT: Pupils are round and equally reacting to light. EOMI. No scleral icterus. No conjunctival pallor. Normocephalic, atraumatic. No pharyngeal erythema. No thyromegaly. CARDIOVASCULAR: S1 and S2 present. No murmurs, rubs, or gallops. PULMONARY: Chest is clear to auscultation, no wheezing or crackles. ABDOMEN: Soft, nontender, nondistended, normoactive bowel sounds. No palpable organomegaly. MUSCULOSKELETAL: No joint swelling or deformity. EXTREMITIES: No cyanosis, clubbing, or pedal edema. NEUROLOGICAL: Gross neurological examination did not reveal any focal deficits. SKIN: No rashes. Dr. Chadwick leal Objective - Vital Signs Vital signs: Vital Signs Temp 98.2 F 05/13/24 00:20 Pulse 70 05/13/24 00:20 Resp 16 05/13/24 00:20 BP 146/68 05/13/24 00:20 Pulse Ox 95 05/13/24 00:20 FiO2 Intake & Output 05/12/24 05/13/24 05/13/24 18:59 06:59 18:59 Output Total 900 300 Balance -900 -300 Output: Urine 900 300 Other: Voiding Method External Catheter # Bowel Movements 1 - Labs CBC & Chem 7: 05/15/24 06:23 05/15/24 06:19 Labs: Abnormal Lab Results - Last 24 Hours (Table) 05/12/24 05/12/24 Range/Units 06:29 06:29 WBC 13.13 H (4.50-10.00) X 10*3/uL Hgb 11.6 L (12.0-15.0) g/dL MCH 24.9 L (27.0-32.0) pg MCHC 29.7 L (32.0-37.0) g/dL RDW 14.7 H (11.5-14.5) % MPV 8.6 L (9.5-12.2) FL Carbon Dioxide 19.1 L (21.6-31.8) mmol/L Anion Gap 13.90 H (4.00-12.00) mmol/L Creatinine 0.5 L (0.6-1.5) mg/dL BUN/Creatinine Ratio 34.20 H (12.00-20.00) Ratio ALT 6 L (8-44) U/L Albumin 2.8 L (3.8-4.9) g/dL Globulin 3.7 H (1.6-3.3) g/dL Albumin/Globulin Ratio 0.76 L (1.60-3.17) Ratio
--- NOTE | 2024-05-13 11:53 | P.PN ---
Subjective HISTORY OF PRESENT ILLNESS: This is a 73-year-old female with a past medical history significant for coronary artery disease with previous stenting, hypertension, hyperlipidemia, and ischemic cardiomyopathy with recent ICD implantation. Patient follows in the office with Dr. Lopez. We have been asked to see the patient in consultation for hypotension. Patient examined at the bedside. Patient presented to the hospital with a chief complaint of abdominal pain. Patient was found to have diverticulitis with microperforation. She is currently NPO and is being followed by general surgery. Patient currently denies chest pain or pressure. She denies shortness of breath. She does report port a 40 pound weight loss recently. However she states some of this was intentional but over the past week her weight loss was unintentional due to feeling unwell. She denies any chest pain or pressure. Denies any dizziness or lightheadedness. DIAGNOSTICS: - Laboratory data: WBC 14.86. Hemoglobin 11.8. Platelet count 421. Sodium 140. Potassium 4.5. BUN 16.9. Creatinine 0.6. - Current home cardiac medications include metoprolol succinate 25 mg daily, Jardiance 10 mg daily, aspirin 81 mg at night, lisinopril 20 mg twice a day, spironolactone 25 mg daily, Plavix 75 mg daily, Lipitor 40 mg daily - Cardiac catheterization history: August 2023 with stenting of the proximal LAD May 12, 2024 Patient examined this morning the bedside. Patient denies chest pain or pressure. She denies shortness of breath. Vital signs are stable. Blood pressure 129/67. She has been followed by general surgery and has been started on clear liquid diet. 05/13/2024 Patient examined this morning the bedside. Patient denies chest pain or pres sure. She denies shortness of breath. She is tolerating clear liquid diet. Vital signs are stable. Blood pressure 114/73. Echocardiogram completed revealing ejection fraction 40 to 45%, global hypokinesis, mild MR, trace AR, trace TR PHYSICAL EXAM: VITAL SIGNS: Reviewed. GENERAL: Well-developed in no acute distress. HEENT: Head is normocephalic. Pupils are equal, round. Sclerae anicteric. Mucous membranes of the mouth are moist. Neck supple. No JVD or thyromegaly LUNGS: Respirations even and unlabored. Lungs essentially clear to auscultation bilaterally. HEART: Regular rate and rhythm. S1 and S2 heard. ABDOMEN: Soft. Nondistended. Tenderness with palpation. EXTREMITIES: Normal range of motion. No clubbing or cyanosis. Peripheral pulses intact. Trace bilateral lower extremity edema NEUROLOGIC: Awake and alert. Oriented x 3. ASSESSMENT: Acute diverticulitis with microperforation Coronary artery disease with previous PCI, most recently to proximal LAD in August 2023 Ischemic cardiomyopathy 30% with recent ICD implantation, improved to 40-45% Hypotension, likely secondary to acute infectious process History of hypertension History of hyperlipidemia PLAN: Discontinue IVF Continue aspirin and atorvastatin. Resume plavix when okay with general surgery Continue to hold additional cardiac medications secondary to hypotension during hospitalization. Slowly reintroduce as BP improves. We will sign off. Please reconsult if needed. Nurse practitioner note has been reviewed by physician. Signing provider agrees with the documented findings, assessment, and plan of care documented by VICE PRESIDENT OF [employer] as a scribe. Objective - Vital Signs Vital signs: Vital Signs Temp 98.7 F 05/13/24 07:18 Pulse 64 05/13/24 07:18 Resp 16 05/13/24 07:18 BP 114/73 05/13/24 07:18 Pulse Ox 96 05/13/24 07:18 FiO2 Intake & Output 05/12/24 05/13/24 05/13/24 18:59 06:59 18:59 Output Total 900 300 Balance -900 -300 Output: Urine 900 300 Other: Voiding Method External Catheter # Bowel Movements 1 - Labs CBC & Chem 7: 05/12/24 06:29 05/13/24 07:35 Labs: Abnormal Lab Results - Last 24 Hours (Table) 05/12/24 05/12/24 05/13/24 Range/Units 06:29 06:29 07:35 WBC 13.13 H (4.50-10.00) X 10*3/uL Hgb 11.6 L (12.0-15.0) g/dL MCH 24.9 L (27.0-32.0) pg MCHC 29.7 L (32.0-37.0) g/dL RDW 14.7 H (11.5-14.5) % MPV 8.6 L (9.5-12.2) FL Sodium 135 L (137-145) mmol/L Carbon Dioxide 19.1 L (21.6-31.8) mmol/L Anion Gap 13.90 H (4.00-12.00) mmol/L Creatinine 0.5 L (0.6-1.5) mg/dL BUN/Creatinine Ratio 34.20 H (12.00-20.00) Ratio ALT 6 L (8-44) U/L Albumin 2.8 L (3.8-4.9) g/dL Globulin 3.7 H (1.6-3.3) g/dL Albumin/Globulin Ratio 0.76 L (1.60-3.17) Ratio
[2024-05-13 12:01] LABS: Basophils % (A) 0 %; Eosinophils # (A) 0.1 k/uL (0-0.7); Eosinophils % (A) 1 %; HCT 36.3 % (34.0-46.0); HGB 11.4 gm/dL (11.4-16.0); Hypochromasia Slight; Lymphocytes # (A) 1.1 k/uL (1.0-4.8); Lymphocytes % (A) 11 %; MCH 25.6 pg (25.0-35.0); MCHC 31.5 g/dL (31.0-37.0); MCV 81.2 fL (80.0-100.0); Mean Platelet Volume 7.4; Monocytes # (A) 0.8 k/uL (0-1.0); Monocytes % (A) 8 %; Neutrophils # (A) 7.7 k/uL (1.3-7.7); Neutrophils % (A) 79 %; Platelet Count 466 k/uL (150-450); RBC 4.47 m/uL (3.80-5.40); RDW 14.1 % (11.5-15.5); WBC 9.7 k/uL (3.8-10.6)
--- NOTE | 2024-05-13 12:28 | P.PN ---
Subjective Progress Note Date: 05/13/24 Principal diagnosis: Reason for follow-up with complicated diverticulitis Patient is a 73-year-old female past medical his significant for hypertension hyperlipidemia [place] atrial fibrillation and diverticulitis many years ago presenting to the hospital for evaluation of abdominal pain that apparently has been going on for about 3 weeks, patient will be diagnosed with a acute diverticulitis with microperforation but no abscess. On today's evaluation that is 05/13/2024, Patient is afebrile this morning patient denies having any chest pain shortness of breath or cough, the patient is breathing comfortably and currently on room air, patient denies any nausea no vomiting, abdominal pain has slightly decreased in intensity. Patient white count is down to 9.7, creatinine 0.5 Objective - Vital Signs Vital signs: Vital Signs Temp 98.7 F 05/13/24 07:18 Pulse 64 05/13/24 07:18 Resp 16 05/13/24 07:18 BP 114/73 05/13/24 07:18 Pulse Ox 96 05/13/24 07:18 FiO2 Intake & Output 05/12/24 05/13/24 05/13/24 18:59 06:59 18:59 Output Total 900 300 Balance -900 -300 Output: Urine 900 300 Other: Voiding Method External Catheter # Bowel Movements 1 - Exam GENERAL DESCRIPTION: An elderly female lying in bed in no distress RESPIRATORY SYSTEM: Unlabored breathing , decreased breath sounds at bases HEART: S1 S2 regular rate and rhythm , ABDOMEN: Soft , mild tenderness EXTREMITIES: No edema feet - Labs CBC & Chem 7: 05/13/24 11:35 05/13/24 07:35 Labs: Abnormal Lab Results - Last 24 Hours (Table) 05/13/24 05/13/24 Range/Units 07:35 11:35 Plt Count 466 H (150-450) k/uL Sodium 135 L (137-145) mmol/L Assessment and Plan (1) Perforation of sigmoid colon due to diverticulitis Current Visit: Yes Status: Acute Code(s): K57.20 - DVTRCLI OF LG INT W PERFORATION AND ABSCESS W/O BLEEDING SNOMED Code(s): 6454156865295056 (2) Diverticulitis Current Visit: Yes Status: Acute Code(s): K57.92 - DVTRCLI OF INTEST, PART UNSP, W/O PERF OR ABSCESS W/O BLEED SNOMED Code(s): 890396257 Plan: 1patient presented to the hospital with sepsis in this patient who did have fever elevated white count source is complicated diverticulitis with microperforation but no evidence of any drainable abscess on the CT we will need to cover for the enteric gram-negative both aerobes and anaerobes. 2patient did have some clinical improvement the patient white count normalized we will continue Zosyn 3.375 g every 8 hours while inpatient finishing therapy with oral antibiotics on discharge Dictation was produced using [employer] dictation software. please excuse any grammatical, word or spelling errors. Time with Patient: Less than 30
[2024-05-13 12:56] VITALS: BMI 28.3
[2024-05-14 07:44] LABS: Basophils % (A) 0 %; Eosinophils % (A) 0 %; HCT 37.2 % (34.0-46.0); HGB 11.6 gm/dL (11.4-16.0); Hypochromasia Slight; Lymphocytes # (A) 0.8 k/uL (1.0-4.8); Lymphocytes % (A) 7 %; MCHC 31.1 g/dL (31.0-37.0); MCV 80.3 fL (80.0-100.0); Mean Platelet Volume 7.7; Monocytes # (A) 0.8 k/uL (0-1.0); Monocytes % (A) 7 %; Neutrophils # (A) 9.6 k/uL (1.3-7.7); Neutrophils % (A) 85 %; Platelet Count 417 k/uL (150-450); RBC 4.63 m/uL (3.80-5.40); RDW 14.1 % (11.5-15.5); WBC 11.4 k/uL (3.8-10.6)
[2024-05-14 08:07] LABS: African American GFR (CKD) >90 (>60 ml/min/1.73 sqM); Anion Gap 7 mmol/L; Blood Urea Nitrogen 11 mg/dL (7-17); Calcium 8.4 mg/dL (8.4-10.2); Carbon Dioxide 22 mmol/L (22-30); Chloride 104 mmol/L (98-107); Glucose 95 mg/dL (74-99); Non-African American GFR(CKD) >90 (>60 ml/min/1.73 sqM); Potassium 3.7 mmol/L (3.5-5.1); Sodium 133 mmol/L (137-145)
--- NOTE | 2024-05-14 08:55 | P.PN ---
Subjective Progress Note Date: 05/14/24 The patient is improving. She has had improvement in her left lower quadrant pain. On exam vital signs appear stable. Abdomen is soft. Patient is doing well. Her diverticulitis is resolving. She will hopefully go home tomorrow. Objective - Vital Signs Vital signs: Vital Signs Temp 99.1 F 05/14/24 02:04 Pulse 95 05/14/24 02:04 Resp 17 05/14/24 02:04 BP 139/81 05/14/24 02:04 Pulse Ox 95 05/14/24 02:04 FiO2 Intake & Output 05/13/24 05/14/24 05/14/24 18:59 06:59 18:59 Output Total 150 Balance -150 Weight 72.575 kg Output: Urine 150 Other: Voiding Method External Catheter # Voids 2 4 - Labs CBC & Chem 7: 05/14/24 06:42 05/14/24 06:42 Labs: Abnormal Lab Results - Last 24 Hours (Table) 05/13/24 05/14/24 05/14/24 Range/Units 11:35 06:42 06:42 WBC 11.4 H (3.8-10.6) k/uL Plt Count 466 H (150-450) k/uL Neutrophils # 9.6 H (1.3-7.7) k/uL Lymphocytes # 0.8 L (1.0-4.8) k/uL Sodium 133 L (137-145) mmol/L Creatinine 0.47 L (0.52-1.04) mg/dL
--- NOTE | 2024-05-14 11:08 | P.PN ---
Subjective Progress Note Date: 05/14/24 Patient is a 73-year-old female with a history of CAD (stent placement in August 2023), defibrillator placement, hypertension, hyperlipidemia, A-fib who came in for abdominal pain that has been occurring for 3 weeks. She reports that the pain occurs on the right and left lower quadrants, is intermittent and sharp with an intensity of 7/10 per episode and is worse with movement. The pain radiated to the leg yesterday which caused her to seek care. There is an associated nausea, chills, and constipation. She denies vomiting, fever, diarrhea, hematochezia, hematemesis, melena, loss of appetite, night sweats, chest pain, shortness of breath, or new onset cough. WBC is elevated at 14.9. CT shows acute diverticulitis of sigmoid colon positive for perforation, no obstruction, no intraperitoneal fluid, no abscess with left hydronephrosis and left hydroureter secondary to inflammation of the colon, and a 5 to 6 cm renal calculus. 05/11. Patient seen and examined. Blood work done this morning showed WBC 14.86, hemoglobin 11.8, sodium 140, potassium 4.5, BUN 16.9, creatinine 0.6. Still having abdominal pain, no nausea or vomiting 05/12. Patient seen and examined. Patient complains of pain in lower quadrants of abdomen but tolerable with pain medication. She also reports her throat bur timur when lying down due to her reflux. She denies any nausea, vomiting, diarrhea, hematemesis, or hematochezia. WBC 13.13 hemoglobin 11.6, sodium 139, potassium 4.3, BUN 17.1, creatinine 0.5. TTE done today shows ejection fraction 40 to 45% with no pericardial effusion. 05/13 Patient seen and examined. Patient complains of improved pain in lower quadrants of abdomen and able to ambulate due to pain being tolerable. Reported to pass flatus, had a BM overnight. She denies any nausea, vomiting, diarrhea, hematemesis, or hematochezia. 05/14 patient seen and examined. Patient reports that she is still having pain with ambulation or movement with an intensity of 5-6 out of 10 but is tolerable with pain medication. She has had to have a bowel movement today on assessment but is able to pass flatus. She denies any nausea, vomiting, diarrhea, hematemesis, or hematochezia. PHYSICAL EXAMINATION: GENERAL: The patient is alert and oriented x3, not in any acute distress. Well developed, well nourished. HEENT: Pupils are round and equally reacting to light. EOMI. No scleral icterus. No conjunctival pallor. Normocephalic, atraumatic. No pharyngeal erythema. No thyromegaly. CARDIOVASCULAR: S1 and S2 present. No murmurs, rubs, or gallops. PULMONARY: Crackles on right lower lung field, no wheezing or crackles. ABDOMEN: Tenderness left lower quadrant, nondistended, normoactive bowel sounds. No palpable organomegaly. MUSCULOSKELETAL: No joint swelling or deformity. EXTREMITIES: No cyanosis, clubbing, or pedal edema. NEUROLOGICAL: Gross neurological examination did not reveal any focal deficits. SKIN: No rashes. Assessment and plan #. Abdominal pain due to acute diverticulitis with perforation, resolving #. Sepsis WBC downtrending currently at 11.4. Patient afebrile and stable at this time. -Monitor CBC -Monitor CMP -oral fluid intake -Pain control with Dilaudid 1 mg IV push every 3 hours as needed -Continue with Zofran 40 mg IV push every 8 hours as needed for nausea and vomiting -Continue with Zosyn 3.375 g 100 mL IV piggyback every 8 hours -Per surgery, encourage ambulation and continue antibiotics, advance to regular diet, may resume Plavix -Per ID, continue with IV antibiotics and can transition to oral antibiotics on discharge #. Atelectasis Patient is not short of breath and is stable at this time. -Incentive spirometry -Continue with ambulation #. Thrombocytosis, resolved Patient is currently stable. And has no signs and symptoms of active bleeding -Will monitor for now -CBC at AM #. CHF not in exacerbation (ejection fraction 40 to 45% on echo in April 2024) Patient is stable and asymptomatic -Per cardiology, continue aspirin and atorvastatin. Resume plavix when okay with general surgery. Slowly reintroduce antihypertensive meds as BP improves. They will sign off. Chronic conditions: A-fib, CAD with 1 stent placement, hypertension, hyperlipidemia, diabetes, osteoarthritis, osteopenia Attestation: I have personally seen and examined the patient with Resident, reviewed the documentation and participated and agree with the assessment and plan as written. Objective - Vital Signs Vital signs: Vital Signs Temp 99.1 F 05/14/24 02:04 Pulse 95 05/14/24 02:04 Resp 17 05/14/24 02:04 BP 139/81 05/14/24 02:04 Pulse Ox 95 05/14/24 02:04 FiO2 Intake & Output 05/13/24 05/14/24 05/14/24 18:59 06:59 18:59 Output Total 150 Balance -150 Weight 72.575 kg Output: Urine 150 Other: Voiding Method External Catheter # Voids 2 4 - Labs CBC & Chem 7: 05/15/24 06:23 05/15/24 06:19 Labs: Abnormal Lab Results - Last 24 Hours (Table) 05/13/24 05/13/24 05/14/24 Range/Units 07:35 11:35 06:42 WBC 11.4 H (3.8-10.6) k/uL Plt Count 466 H (150-450) k/uL Neutrophils # 9.6 H (1.3-7.7) k/uL Lymphocytes # 0.8 L (1.0-4.8) k/uL Sodium 135 L (137-145) mmol/L Creatinine (0.52-1.04) mg/dL 05/14/24 Range/Units 06:42 WBC (3.8-10.6) k/uL Plt Count (150-450) k/uL Neutrophils # (1.3-7.7) k/uL Lymphocytes # (1.0-4.8) k/uL Sodium 133 L (137-145) mmol/L Creatinine 0.47 L (0.52-1.04) mg/dL
[2024-05-14] MEDS: CLOPIDOGREL 75 MG TAB PO SCH (15:17)
--- NOTE | 2024-05-14 19:16 | P.PN ---
Subjective Progress Note Date: 05/14/24 Principal diagnosis: Reason for follow-up with complicated diverticulitis Patient is a 73-year-old female past medical his significant for hypertension hyperlipidemia [place] atrial fibrillation and diverticulitis many years ago presenting to the hospital for evaluation of abdominal pain that apparently has been going on for about 3 weeks, patient will be diagnosed with a acute diverticulitis with microperforation but no abscess. On today's evaluation that is 05/14/2024,the patient denies any fever or any chills, patient is breathing comfortably on room air, the patient denies chest pain shortness of breath and no significant cough, patient abdominal pain has slightly decreased intensity denies any nausea no vomiting did have a small bowel movement. Patient white count is 11.4, creatinine 0.47 Objective - Vital Signs Vital signs: Vital Signs Temp 99.1 F 05/14/24 02:04 Pulse 95 05/14/24 02:04 Resp 17 05/14/24 02:04 BP 139/81 05/14/24 02:04 Pulse Ox 95 05/14/24 02:04 FiO2 Intake & Output 05/13/24 05/14/24 05/14/24 18:59 06:59 18:59 Output Total 150 Balance -150 Weight 72.575 kg Output: Urine 150 Other: Voiding Method External Catheter # Voids 2 4 - Exam GENERAL DESCRIPTION: An elderly female lying in bed in no distress RESPIRATORY SYSTEM: Unlabored breathing , decreased breath sounds at bases HEART: S1 S2 regular rate and rhythm , ABDOMEN: Soft , mild tenderness EXTREMITIES: No edema feet - Labs CBC & Chem 7: 05/14/24 06:42 05/14/24 06:42 Labs: Abnormal Lab Results - Last 24 Hours (Table) 05/13/24 05/13/24 05/14/24 Range/Units 07:35 11:35 06:42 WBC 11.4 H (3.8-10.6) k/uL Plt Count 466 H (150-450) k/uL Neutrophils # 9.6 H (1.3-7.7) k/uL Lymphocytes # 0.8 L (1.0-4.8) k/uL Sodium 135 L (137-145) mmol/L Assessment and Plan (1) Perforation of sigmoid colon due to diverticulitis Current Visit: Yes Status: Acute Code(s): K57.20 - DVTRCLI OF LG INT W PERFORATION AND ABSCESS W/O BLEEDING SNOMED Code(s): 3938142807647711 (2) Diverticulitis Current Visit: Yes Status: Acute Code(s): K57.92 - DVTRCLI OF INTEST, PART UNSP, W/O PERF OR ABSCESS W/O BLEED SNOMED Code(s): 013510533 Plan: 1patient presented to the hospital with sepsis in this patient who did have f ever elevated white count source is complicated diverticulitis with microperforation but no evidence of any drainable abscess on the CT we will need to cover for the enteric gram-negative both aerobes and anaerobes. 2patient is afebrile but slightly up today need to monitor closely, for now continue Zosyn 3.375 g every 8 hours while inpatient and repeat a CBC with a.m. lab Dictation was produced using [employer] dictation software. please excuse any grammatical, word or spelling errors. Time with Patient: Less than 30
[2024-05-14] MEDS: ACETAMINOPHEN TAB 325 MG TAB PO PRN (22:19)
[2024-05-15 04:31] VITALS: RESP 18
--- NOTE | 2024-05-15 08:39 | P.PN ---
Subjective Progress Note Date: 05/15/24 Patient feels well today. She wants to go home. On exam vital signs appear stable. Abdomen soft. Resolved diverticulitis. Patient was discharged home. She will follow-up in 1 week. Objective - Vital Signs Vital signs: Vital Signs Temp 98 F 05/15/24 02:13 Pulse 93 05/15/24 02:13 Resp 18 05/15/24 02:13 BP 149/74 05/15/24 02:13 Pulse Ox 95 05/15/24 02:13 FiO2 Intake & Output 05/14/24 05/15/24 05/15/24 18:59 06:59 18:59 Other: Voiding Method Bedside Commode Bedside Commode # Voids 2 2 - Labs CBC & Chem 7: 05/14/24 06:42 05/14/24 06:42
[2024-05-15 10:48] LABS: Basophils # (A) 0.03 X 10*3/uL (0.00-0.10); Basophils % (A) 0.2 %; Eosinophils # (A) 0 X 10*3/uL (0.04-0.35); Eosinophils % (A) 0 %; HCT 36.9 % (37.2-46.3); HGB 11.5 g/dL (12.0-15.0); Lymphocytes # (A) 1.51 X 10*3/uL (0.90-5.00); Lymphocytes % (A) 9.4 %; MCH 24.8 pg (27.0-32.0); MCHC 31.2 g/dL (32.0-37.0); MCV 79.7 FL (80.0-97.0); Mean Platelet Volume 8.9 FL (9.5-12.2); Monocytes # (A) 1.41 X 10*3/uL (0.20-1.00); Monocytes % (A) 8.8 %; NRBC Per 100 WBC 0 X 10*3/uL (0.00-0.01); Neutrophils # (A) 12.98 X 10*3/uL (1.80-7.70); Neutrophils % (A) 80.9 %; Platelet Count 410 X 10*3/uL (140-440); RBC 4.63 X 10*6/uL (4.10-5.20); RDW 14.5 % (11.5-14.5); WBC 16.04 X 10*3/uL (4.50-10.00)
[2024-05-15 12:27] LABS: ALT 6 U/L (8-44); AST 18 U/L (13-35); Albumin 2.7 g/dL (3.8-4.9); Albumin/Globulin Ratio 0.77 Ratio (1.60-3.17); Alkaline Phosphatase 81 U/L (41-126); Blood Urea Nitrogen 10.6 mg/dL (9.0-27.0); Calcium 8.4 mg/dL (8.7-10.3); Carbon Dioxide 23.2 mmol/L (21.6-31.8); Chloride 103 mmol/L (96-109); Globulin 3.5 g/dL (1.6-3.3); Glucose 127 mg/dL (70-110); Potassium 3.7 mmol/L (3.5-5.5); Sodium 137 mmol/L (135-145); Total Bilirubin 0.5 mg/dL (0.3-1.2); Total Protein 6.2 g/dL (6.2-8.2)
[2024-05-15 14:44] VITALS: BP 97/64; PULSE 78; TEMP 97.5
--- NOTE | 2024-05-15 15:18 | P.DS ---
Providers Date of admission: 05/09/24 17:08 Expected date of discharge: 05/15/24 Attending physician: Ronnie Pike Consults: 05/09/24 17:08 Consult Physician Urgent Consulting Provider: Dario Valles Consult Reason/Comments: diverticulitis with microperforation Do you want consulting provider notified?: Yes 05/11/24 10:35 Consult Physician Routine Consulting Provider: Jelani Krishnamurthy Consult Reason/Comments: Diverticulitis Do you want consulting provider notified?: Yes Primary care physician: Jasson Morales Hospital Course: Discharge diagnoses: acute diverticulitis with perforation, resolving #. Sepsis WBC downtrending currently at 11.4. Patient afebrile and stable at this time. -Monitor CBC -Monitor CMP -oral fluid intake -Patient symptom gradually improved -General Surgery consulted, recommended medical management. ID consultedreceived Zosyn during hospitalization, continued on Ceftin and Flagyl for 2 weeks at discharge. #. Atelectasis Patient is not short of breath and is stable at this time. -Incentive spirometry -Continue with ambulation #. Thrombocytosis, resolved Patient is currently stable. And has no signs and symptoms of active bleeding -Will monitor for now -CBC at AM #. CHF not in exacerbation (ejection fraction 40 to 45% on echo in April 2024) Patient is stable and asymptomatic -Per cardiology, continue aspirin and atorvastatin. Resume plavix. Slowly reintroduce antihypertensive meds as BP improves. They will sign off. Chronic conditions: A-fib, CAD with 1 stent placement, hypertension, hyperlipidemia, diabetes, osteoarthritis, osteopenia Hospital course: Patient is a 73-year-old female with a history of CAD (stent placement in August 2023), defibrillator placement, hypertension, hyperlipidemia, A-fib who came in for abdominal pain that has been occurring for 3 weeks. She reports that the pain occurs on the right and left lower quadrants, is intermittent and sharp with an intensity of 7/10 per episode and is worse with movement. The pain radiated to the leg yesterday which caused her to seek care. There is an associated nausea, chills, and constipation. She denies vomiting, fever, diarrhea, hematochezia, hematemesis, melena, loss of appetite, night sweats, chest pain, shortness of breath, or new onset cough. WBC is elevated at 14.9. CT shows acute diverticulitis of sigmoid colon positive for perforation, no obstruction, no intraperitoneal fluid, no abscess with left hydronephrosis and left hydroureter secondary to inflammation of the colon, and a 5 to 6 cm renal calculus. 05/11. Patient seen and examined. Blood work done this morning showed WBC 14.86, hemoglobin 11.8, sodium 140, potassium 4.5, BUN 16.9, creatinine 0.6. Still having abdominal pain, no nausea or vomiting 05/12. Patient seen and examined. Patient complains of pain in lower quadrants of abdomen but tolerable with pain medication. She also reports her throat burning when lying down due to her reflux. She denies any nausea, vomiting, diarrhea, hematemesis, or hematochezia. WBC 13.13 hemoglobin 11.6, sodium 139, potassium 4.3, BUN 17.1, creatinine 0.5. TTE done today shows ejection fraction 40 to 45% with no pericardial effusion. 05/13 Patient seen and examined. Patient complains of improved pain in lower quadrants of abdomen and able to ambulate due to pain being tolerable. Reported to pass flatus, had a BM overnight. She denies any nausea, vomiting, diarrhea, hematemesis, or hematochezia. 05/14 patient seen and examined. Patient reports that she is still having pain with ambulation or movement with an intensity of 5-6 out of 10 but is tolerable with pain medication. She has had to have a bowel movement today on assessment but is able to pass flatus. She denies any nausea, vomiting, diarrhea, hemate mesis, or hematochezia. 05/15--patient was seen and examined today. Symptoms improved. Okay to discharge per general surgery. Discussed with infectious disease, will continue Ceftin and Flagyl for 14 days. Outpatient follow-up with PCP and general surgery. PHYSICAL EXAMINATION: GENERAL: The patient is A&O x3, NAD HEENT: EOMI, Sclerae anicteric, Moist Mucous membranes Neck: Supple, Non tender, No JVD PULMONARY: Equal breath souds B/L, No wheezing, No crackles. CARDIOVASCULAR: S1, S2 present. No murmurs, rubs, or gallops. ABDOMEN: Soft, nontender, nondistended, normoactive bowel sounds. No guarding or rebound tenderness. MUSCULOSKELETAL: No edema, No cyanosis. No clubbing. Normal ROM. Intact peripheral pulses. EXTREMITIES: No cyanosis, clubbing, or pedal edema. NEUROLOGICAL: CN 2-12 grossly intact. No FND SKIN: No rashes. Dictation was produced using [employer] dictation software. please excuse any grammatical, word or spelling errors. Patient Condition at Discharge: Fair Plan - Discharge Summary Discharge Rx Participant: Yes New Discharge Prescriptions: New cefUROXime axetiL [Ceftin] 500 mg PO BID #28 tab metroNIDAZOLE [Flagyl] 500 mg PO TID #42 tab Continue Aspirin EC [Ecotrin Low Dose] 81 mg PO HS Atorvastatin [Lipitor] 40 mg PO DAILY #90 tab Metoprolol Succinate (ER) [Toprol XL] 25 mg PO DAILY Nitroglycerin Sl Tabs [Nitrostat] 0.4 mg SL Q5M PRN PRN Reason: Chest Pain Clopidogrel [Plavix] 75 mg PO DAILY 30 Days #30 tab lisinopriL [Zestril] 20 mg PO BID #60 tab Spironolactone 25 mg PO DAILY Empagliflozin [Jardiance] 10 mg PO DAILY Discharge Medication List Aspirin EC [Ecotrin Low Dose] 81 mg PO HS 12/02/17 [History] Atorvastatin [Lipitor] 40 mg PO DAILY #90 tab 09/11/23 [Rx] Clopidogrel [Plavix] 75 mg PO DAILY 30 Days #30 tab 09/11/23 [Rx] lisinopriL [Zestril] 20 mg PO BID #60 tab 09/11/23 [Rx] Empagliflozin [Jardiance] 10 mg PO DAILY 04/15/24 [History] Spironolactone 25 mg PO DAILY 04/15/24 [History] Metoprolol Succinate (ER) [Toprol XL] 25 mg PO DAILY 05/09/24 [History] Nitroglycerin Sl Tabs [Nitrostat] 0.4 mg SL Q5M PRN 05/09/24 [History] cefUROXime axetiL [Ceftin] 500 mg PO BID #28 tab 05/15/24 [Rx] metroNIDAZOLE [Flagyl] 500 mg PO TID #42 tab 05/15/24 [Rx] Follow up Appointment(s)/Referral(s): Jasson Morales [Primary Care Provider] - 1-2 days Discharge Disposition: HOME SELF-CARE
--- NOTE | 2024-05-15 15:38 | P.PN ---
Subjective Progress Note Date: 05/15/24 Principal diagnosis: Reason for follow-up with complicated diverticulitis Patient is a 73-year-old female past medical his significant for hypertension hyperlipidemia [place] atrial fibrillation and diverticulitis many years ago presenting to the hospital for evaluation of abdominal pain that apparently has been going on for about 3 weeks, patient will be diagnosed with a acute diverticulitis with microperforation but no abscess. On today's evaluation that is 05/15/2024,the patient remains to be afebrile, patient is on room air not requiring supplemental oxygen and denies any shortness of breath no chest pain or cough.Patient denies having any nausea or vomiting, abdominal pain has decreased in intensity feeling better. Patient white count is up to 16.04 today, creatinine 0.5 Objective - Vital Signs Vital signs: Vital Signs Temp 97.9 F 05/15/24 07:32 Pulse 68 05/15/24 07:32 Resp 18 05/15/24 07:32 BP 110/77 05/15/24 07:32 Pulse Ox 96 05/15/24 07:32 FiO2 Intake & Output 05/14/24 05/15/24 05/15/24 18:59 06:59 18:59 Other: Voiding Method Bedside Commode Bedside Commode Toilet # Voids 2 2 1 - Exam GENERAL DESCRIPTION: An elderly female lying in bed in no distress RESPIRATORY SYSTEM: Unlabored breathing , decreased breath sounds at bases HEART: S1 S2 regular rate and rhythm , ABDOMEN: Soft , mild tenderness EXTREMITIES: No edema feet - Labs CBC & Chem 7: 05/15/24 06:23 05/15/24 06:19 Labs: Abnormal Lab Results - Last 24 Hours (Table) 05/15/24 Range/Units 06:23 WBC 16.04 H (4.50-10.00) X 10*3/uL Hgb 11.5 L (12.0-15.0) g/dL Hct 36.9 L (37.2-46.3) % MCV 79.7 L (80.0-97.0) FL MCH 24.8 L (27.0-32.0) pg MCHC 31.2 L (32.0-37.0) g/dL MPV 8.9 L (9.5-12.2) FL Immature Gran # 0.11 H (0.00-0.04) X 10*3/uL Neutrophils # 12.98 H (1.80-7.70) X 10*3/uL Monocytes # 1.41 H (0.20-1.00) X 10*3/uL Eosinophils # 0 L (0.04-0.35) X 10*3/uL Assessment and Plan (1) Perforation of sigmoid colon due to diverticulitis Current Visit: Yes Status: Acute Code(s): K57.20 - DVTRCLI OF LG INT W PERFORATION AND ABSCESS W/O BLEEDING SNOMED Code(s): 7736805376630561 (2) Diverticulitis Current Visit: Yes Status: Acute Code(s): K57.92 - DVTRCLI OF INTEST, PART UNSP, W/O PERF OR ABSCESS W/O BLEED SNOMED Code(s): 103393047 Plan: 1patient presented to the hospital with sepsis in this patient who did have fever elevated white count source is complicated diverticulitis with microperforation but no evidence of any drainable abscess on the CT we will need to cover for the enteric gram-negative both aerobes and anaerobes. 2patient is afebrile but white count slightly up today which is slightly co ncerning however patient has been cleared for discharge by general surgery and the patient insisting on going home we will recommend a 10-day course of oral Ceftin and Flagyl on discharge discussed with admitting physician patient has been advised if any worsening abdominal pain vomiting or fever she needs to come back to the hospital right away Dictation was produced using [employer] dictation software. please excuse any grammatical, word or spelling errors. Time with Patient: Less than 30
== END 2024-05-15 18:02 | disposition home or self-care (01) | DRG 872 ==
LOC: EC 13:05 → 4SSUR 17:08
PROVIDERS: ADMIT Hospitalist; ATTEND Hospitalist
DX: A41.9 Sepsis, unspecified organism (principal); J98.11 Atelectasis; K57.20 Diverticulitis of large intestine with perforation and abscess without bleeding; D75.839 Thrombocytosis, unspecified; E11.9 Type 2 diabetes mellitus without complications; E78.5 Hyperlipidemia, unspecified; I11.0 Hypertensive heart disease with heart failure; I25.10 Atherosclerotic heart disease of native coronary artery without angina pectoris; I25.2 Old myocardial infarction; I25.5 Ischemic cardiomyopathy; I48.91 Unspecified atrial fibrillation; I50.9 Heart failure, unspecified; R63.4 Abnormal weight loss; E66.9 Obesity, unspecified; K21.9 Gastro-esophageal reflux disease without esophagitis; K59.00 Constipation, unspecified; I95.9 Hypotension, unspecified; M19.90 Unspecified osteoarthritis, unspecified site; M85.80 Other specified disorders of bone density and structure, unspecified site; N20.0 Calculus of kidney; R09.02 Hypoxemia; Z95.810 Presence of automatic (implantable) cardiac defibrillator; Z79.82 Long term (current) use of aspirin; Z79.02 Long term (current) use of antithrombotics/antiplatelets; Z79.84 Long term (current) use of oral hypoglycemic drugs; Z79.899 Other long term (current) drug therapy; Z95.5 Presence of coronary angioplasty implant and graft; Z88.8 Allergy status to other drugs, medicaments and biological substances; Z91.041 Radiographic dye allergy status; Z79.01 Long term (current) use of anticoagulants; Z68.28 Body mass index [BMI] 28.0-28.9, adult; Z71.3 Dietary counseling and surveillance

== ENCOUNTER 2024-05-16 09:35 | Inpatient (IN) | payer MEDICARE ==
[2024-05-16] MEDS: METOPROLOL SUCCINATE (ER) 25 MG TAB.ER.24H PO STA (09:52)
[2024-05-16 10:32] LABS: Basophils % (A) 0 %; Eosinophils % (A) 0 %; HCT 36.3 % (34.0-46.0); HGB 11.3 gm/dL (11.4-16.0); Hypochromasia Moderate; Lymphocytes # (A) 0.6 k/uL (1.0-4.8); Lymphocytes % (A) 4 %; MCH 24.8 pg (25.0-35.0); MCHC 31.2 g/dL (31.0-37.0); MCV 79.6 fL (80.0-100.0); Mean Platelet Volume 7.5; Monocytes # (A) 0.8 k/uL (0-1.0); Monocytes % (A) 6 %; Neutrophils # (A) 11.9 k/uL (1.3-7.7); Neutrophils % (A) 89 %; Platelet Count 453 k/uL (150-450); RBC 4.56 m/uL (3.80-5.40); RDW 14.2 % (11.5-15.5); WBC 13.4 k/uL (3.8-10.6)
[2024-05-16 10:41] LABS: INR 1.1 (<1.2); Partial Thromboplastin Time 25.7 sec (22.0-30.0); Prothrombin Time 12.2 sec (10.0-12.5)
--- NOTE | 2024-05-16 10:42 | XR ---
EXAMINATION TYPE: XR chest 2V DATE OF EXAM: 05/16/2024 COMPARISON: 09/06/2023 HISTORY: Dysrhythmia TECHNIQUE: Frontal and lateral views of the chest are obtained. FINDINGS: There is an AICD device. There is no focal air space opacity, pleural effusion, or pneumothorax seen. The cardiac silhouette size is within normal limits. The osseous structures are intact. IMPRESSION: No acute cardiopulmonary process.
[2024-05-16 11:08] LABS: ALT 9 U/L (4-34); AST 25 U/L (14-36); African American GFR (CKD) >90 (>60 ml/min/1.73 sqM); Albumin 2.6 g/dL (3.5-5.0); Alkaline Phosphatase 82 U/L (38-126); Anion Gap 7 mmol/L; Blood Urea Nitrogen 16 mg/dL (7-17); Calcium 8.7 mg/dL (8.4-10.2); Carbon Dioxide 24 mmol/L (22-30); Chloride 104 mmol/L (98-107); Glucose 103 mg/dL (74-99); Magnesium 1.6 mg/dL (1.6-2.3); Non-African American GFR(CKD) >90 (>60 ml/min/1.73 sqM); Potassium 3.5 mmol/L (3.5-5.1); Sodium 135 mmol/L (137-145); Total Bilirubin 0.7 mg/dL (0.2-1.3); Total Protein 6.3 g/dL (6.3-8.2)
[2024-05-16] MEDS: SODIUM CHLORIDE 0.9% 500 ML 500 ML IV ONE (12:28)
--- NOTE | 2024-05-16 12:51 | ED ---
General Adult HPI - General Chief complaint: Arrhythmia/Palpitations Stated complaint: LEILA Time Seen by Provider: 05/16/24 09:45 Source: patient, EMS, RN notes reviewed, old records reviewed Mode of arrival: EMS Limitations: no limitations - History of Present Illness Initial comments: This is a 73-year-old female who presents to the emergency department the pacemaker defibrillator. Patient states last night she was just sitting around having no symptoms whatsoever and her defibrillator shocked her. Patient states she did not think much of it so went to bed and got up this morning and it is shocked her since twice. Patient denies any chest pain palpitation difficulty breathing or shortness of breath. Patient states the shock was quite painful. Patient denies any fever chills or cough. Patient denies taking any of her medications this morning. Patient denies headache patient has numbness weakness. Patient states she is been asymptomatic prior to any shocks and after all of the shocks. - Related Data Home Medications Medication Instructions Recorded Confirmed Aspirin EC [Ecotrin Low Dose] 81 mg PO HS 12/02/17 05/09/24 Empagliflozin [Jardiance] 10 mg PO DAILY 04/15/24 05/09/24 Spironolactone 25 mg PO DAILY 04/15/24 05/09/24 Metoprolol Succinate (ER) [Toprol 25 mg PO DAILY 05/09/24 05/09/24 XL] Nitroglycerin Sl Tabs [Nitrostat] 0.4 mg SL Q5M PRN 05/09/24 05/09/24 Previous Rx's Medication Instructions Recorded Atorvastatin [Lipitor] 40 mg PO DAILY #90 tab 09/11/23 Clopidogrel [Plavix] 75 mg PO DAILY 30 Days #30 tab 09/11/23 lisinopriL [Zestril] 20 mg PO BID #60 tab 09/11/23 cefUROXime axetiL [Ceftin] 500 mg PO BID #28 tab 05/15/24 metroNIDAZOLE [Flagyl] 500 mg PO TID #42 tab 05/15/24 Allergies Allergy/AdvReac Type Severity Reaction Status Date / Time Iodinated Contrast Media Allergy Wheezing/hi Verified 05/16/24 09:41 ves iodine Allergy Wheezing/hi Verified 05/16/24 09:41 ves Review of Systems ROS Statement: Those systems with pertinent positive or pertinent negative responses have been documented in the HPI. ROS Other: All systems not noted in ROS Statement are negative. Past Medical History Past Medical History: Atrial Fibrillation, Hyperlipidemia, Hypertension, Myocardial Infarction ([place]) Last Myocardial Infarction Date:: 09/07/2023 History of Any Multi-Drug Resistant Organisms: None Reported Past Surgical History: No Surgical Hx Reported, Heart Catheterization With Stent Additional Past Surgical History / Comment(s): Cardiac stents Past Anesthesia/Blood Transfusion Reactions: No Reported Reaction Past Psychological History: No Psychological Hx Reported Smoking Status: Never smoker Past Alcohol Use History: None Reported, Unable to Obtain Past Drug Use History: None Reported General Exam - General Exam Comments Initial Comments: GENERAL: Patient is well-developed and well-nourished. Patient is nontoxic and well- hydrated and is in no acute distress. ENT: Neck is soft and supple. No significant lymphadenopathy is noted. Oropharynx is clear. Moist mucous membranes. Neck has full range of motion without eliciting any pain. EYES: The sclera were anicteric and conjunctiva were pink and moist. Extraocular movements were intact and pupils were equal round and reactive to light. Eyelids were unremarkable. PULMONARY: Unlabored respirations. Good breath sounds bilaterally. No audible rales rhonchi or wheezing was noted. CARDIOVASCULAR: There is a regular rate and rhythm without any murmurs gallops or rubs. ABDOMEN: Soft and nontender with normal bowel sounds. SKIN: Skin is clear with no lesions or rashes and otherwise unremarkable. NEUROLOGIC: Patient is alert and oriented x3. Cranial nerves II through XII are grossly intact. Motor and sensory are also intact. Normal speech, volume and content. Symmetrical smile. MUSCULOSKELETAL: Normal extremities with adequate strength and full range of motion. LYMPHATICS: No significant lymphadenopathy is noted PSYCHIATRIC: Normal psychiatric evaluation. Limitations: no limitations Course Vital Signs 05/16/24 05/16/24 05/16/24 09:41 09:50 10:02 Pulse Rate 66 63 Pulse Rate [ 66 Statistical Secretary ] Respiratory 16 Rate Blood Pressure 109/57 90/67 O2 Sat by Pulse 97 Oximetry 05/16/24 05/16/24 05/16/24 10:41 10:46 11:19 Pulse Rate 103 H 122 H 113 H Pulse Rate [ Statistical Secretary ] Respiratory 16 18 18 Rate Blood Pressure 110/64 123/71 112/84 O2 Sat by Pulse 96 95 95 Oximetry 05/16/24 05/16/24 12:10 13:22 Pulse Rate 102 H 105 H Pulse Rate [ Statistical Secretary ] Respiratory 16 18 Rate Blood Pressure 91/58 122/72 O2 Sat by Pulse 96 95 Oximetry Medical Decision Making - Medical Decision Making EKG was interpreted by myself. EKG shows a paced rhythm at 71 bpm QRS is 146 QT interval is 490 QTc is 512. Patient's EKG shows multiple PVCs. Was pt. sent in by a medical professional or institution ([facility], [facility], urgent care, hospital, or senior care...) When possible be specific @ -No Did you speak to anyone other than the patient for history (EMS, parent, family, police, friend...)? What history was obtained from this source @ -No Did you review nursing and triage notes (agree or disagree)? Why? @ -I reviewed and agree with nursing and triage notes Were old charts reviewed (outside hosp., previous admission, EMS record, old EKG, old radiological studies, urgent care reports/EKG's, senior care records)? Report findings @ -No old charts were reviewed Differential Diagnosis? @ -Differential Palpitations Ventricular arrhythmias, atrial arrhythmias, myocardial infarction, anemia, thyrotoxicosis, electrolyte imbalance, hypokalemia, pulmonary embolism, pulmonary disease, drugs, alcohol, anxiety, stress.... This is not meant to be an all-inclusive list. EKG interpreted by me (3pts min.). @ -As above X-rays interpreted by me (1pt min.). @ -Chest x-ray shows no acute abnormality CT interpreted by me (1pt min.). @ -None done U/S interpreted by me (1pt. min.). @ -None done What testing was considered but not performed or refused? (CT, X-rays, U/S, labs)? Why? @ -None What meds were considered but not given or refused? Why? @ -None Did you discuss the management of the patient with other professionals (professionals i.e. [facility], [facility], lab, RT, psych nurse, social service coordinator, district plant supervisor, teacher, security patrol officer, showcase trimmer)? Give summary @ -I spoke with Sheet agreed to admit the patient admit the patient recommending orders Was smoking cessation discussed for >3mins.? @ -No Was critical care preformed (if so, how long)? @ -No Were there social determinants of health that impacted care today? How? (Homelessness, low income, unemployed, alcoholism, drug addiction, transportation, low edu. Level, literacy, decrease access to med. care, [facility], rehab)? @ -No Was there de-escalation of care discussed even if they declined (Discuss DNR or withdrawal of care, Hospice)? DNR status @ -No What co-morbidities impacted this encounter? (DM, HTN, Smoking, COPD, CAD, Cancer, CVA, ARF, Chemo, Hep., AIDS, mental health diagnosis, sleep apnea, morbid obesity)? @ -None Was patient admitted / discharged? Hospital course, mention meds given and route, prescriptions, significant lab abnormalities, going to OR and other pertinent info. @ -Patient had no symptoms while in the emergency department and there was multiple attempts made to get the defibrillator interrogated and we were unsuccessful at this time patient will be admitted to Dr. Arroyo with a consult to cardiology Undiagnosed new problem with uncertain prognosis? @ -No Drug Therapy requiring intensive monitoring for toxicity (Heparin, Nitro, Insulin, Cardizem)? @ -No Were any procedures done? @ -No Diagnosis/symptom? @ -Defibrillator firing Acute, or Chronic, or Acute on Chronic? @ -Acute Uncomplicated (without systemic symptoms) or Complicated (systemic symptoms)? @ -Comp Side effects of treatment? @ -Acute Exacerbation, Progression, or Severe Exacerbation? @ -No Poses a threat to life or bodily function? How? (Chest pain, [place], [place], pneumonia, PE, COPD, DKA, ARF, appy, cholecystitis, CVA, Diverticulitis, Homicidal, Suicidal, threat to staff... and all critical care pts) @ -Yes this patient could have a an arrhythmia which could lead to poor perfusion and endorgan dysfunction Patient's interrogation of the defibrillator came back and it showed that the patient had multiple episodes of V. tach 3 sustained which were requiring a discharge. I spoke with Dr. Lopez at this point in time he wanted the patient started on amiodarone I started the patient on amiodarone after I gave the patient 150 mg bolus - Lab Data Result diagrams: 05/16/24 09:58 05/16/24 09:58 Lab Results 05/16/24 05/16/24 05/16/24 Range/Units 09:58 09:58 09:58 WBC 13.4 H (3.8-10.6) k/uL RBC 4.56 (3.80-5.40) m/uL Hgb 11.3 L (11.4-16.0) gm/dL Hct 36.3 (34.0-46.0) % MCV 79.6 L (80.0-100.0) fL MCH 24.8 L (25.0-35.0) pg MCHC 31.2 (31.0-37.0) g/dL RDW 14.2 (11.5-15.5) % Plt Count 453 H (150-450) k/uL MPV 7.5 Neutrophils % 89 % Lymphocytes % 4 % Monocytes % 6 % Eosinophils % 0 % Basophils % 0 % Neutrophils # 11.9 H (1.3-7.7) k/uL Lymphocytes # 0.6 L (1.0-4.8) k/uL Monocytes # 0.8 (0-1.0) k/uL Eosinophils # 0.0 (0-0.7) k/uL Basophils # 0.0 (0-0.2) k/uL Hypochromasia Moderate PT 12.2 (10.0-12.5) sec INR 1.1 (<1.2) APTT 25.7 (22.0-30.0) sec Sodium 135 L (137-145) mmol/L Potassium 3.5 (3.5-5.1) mmol/L Chloride 104 (98-107) mmol/L Carbon Dioxide 24 (22-30) mmol/L Anion Gap 7 mmol/L BUN 16 (7-17) mg/dL Creatinine 0.49 L (0.52-1.04) mg/dL Est GFR (CKD-EPI)AfAm >90 (>60 ml/min/1.73 sqM) Est GFR (CKD-EPI)NonAf >90 (>60 ml/min/1.73 sqM) Glucose 103 H (74-99) mg/dL Calcium 8.7 (8.4-10.2) mg/dL Magnesium 1.6 (1.6-2.3) mg/dL Total Bilirubin 0.7 (0.2-1.3) mg/dL AST 25 (14-36) U/L ALT 9 (4-34) U/L Alkaline Phosphatase 82 (38-126) U/L Troponin I (0.000-0.034) ng/mL Total Protein 6.3 (6.3-8.2) g/dL Albumin 2.6 L (3.5-5.0) g/dL 05/16/24 Range/Units 09:58 WBC (3.8-10.6) k/uL RBC (3.80-5.40) m/uL Hgb (11.4-16.0) gm/dL Hct (34.0-46.0) % MCV (80.0-100.0) fL MCH (25.0-35.0) pg MCHC (31.0-37.0) g/dL RDW (11.5-15.5) % Plt Count (150-450) k/uL MPV Neutrophils % % Lymphocytes % % Monocytes % % Eosinophils % % Basophils % % Neutrophils # (1.3-7.7) k/uL Lymphocytes # (1.0-4.8) k/uL Monocytes # (0-1.0) k/uL Eosinophils # (0-0.7) k/uL Basophils # (0-0.2) k/uL Hypochromasia PT (10.0-12.5) sec INR (<1.2) APTT (22.0-30.0) sec Sodium (137-145) mmol/L Potassium (3.5-5.1) mmol/L Chloride (98-107) mmol/L Carbon Dioxide (22-30) mmol/L Anion Gap mmol/L BUN (7-17) mg/dL Creatinine (0.52-1.04) mg/dL Est GFR (CKD-EPI)AfAm (>60 ml/min/1.73 sqM) Est GFR (CKD-EPI)NonAf (>60 ml/min/1.73 sqM) Glucose (74-99) mg/dL Calcium (8.4-10.2) mg/dL Magnesium (1.6-2.3) mg/dL Total Bilirubin (0.2-1.3) mg/dL AST (14-36) U/L ALT (4-34) U/L Alkaline Phosphatase (38-126) U/L Troponin I 0.014 (0.000-0.034) ng/mL Total Protein (6.3-8.2) g/dL Albumin (3.5-5.0) g/dL Critical Care Time Critical Care Time: Yes Total Critical Care Time: 35 Disposition Clinical Impression: Defibrillator discharge, Ventricular tachycardia Disposition: ADMITTED IP TO THIS [facility] Time of Disposition: 12:56
[2024-05-16] MEDS ORDERED: NITROGLYCERIN SL TABS 0.4 MG TAB SUBLINGUAL PRN (12:56)
[2024-05-16] MEDS: AMIODARONE 360 MG in DEXTROSE 5% IN WATER 200 ML IV ONE (14:49)
[2024-05-16] MEDS: DEXTROSE 5% IN WATER 100 ML with AMIODARONE 150 MG IV ONE (14:51)
[2024-05-16] MEDS ORDERED: SENNOSIDES 8.6 MG TAB PO PRN (15:33)
--- NOTE | 2024-05-16 15:58 | P.HPIM ---
History of Present Illness H&P Date: 05/16/24 History of present illness: 73-year-old female with past medical history significant for atrial fibri llation, AICD in place, ischemic cardiomyopathy with a EF 45%, coronary artery disease status post stenting August 2023, hypertension, hyperlipidemia who presented to ER with a complaint of defibrillator shock. Patient was discharged yesterday on oral antibiotics Ceftin and Flagyl, when patient was admitted for acute diverticulitis with perforation, infectious disease and general surgery was consulted and patient was continued on medical management during hospitalization and eventually discharged after clearance from general surgery after patient symptoms improved. Patient reported that she had of defibrillator shock yesterday, had 1 more shock earlier today leading to fall. Patient rep orted that she has not had a bowel movement. Patient has not started her home medication. Patient also reported fever and chills, reported abdominal distention, reported abdominal pain is same. Patient denied any headache, sore throat, productive cough, shortness of breath, chest pain, palpitations, dysuria urgency frequency weakness or numbness of extremities. Vitals: Temperature 100.3, heart rate 118, respiratory rate 18, blood pressure 101/62, saturating 94% on room air. Labs: WBCs 13.4, trending down, hemoglobin 11.3, platelets 453, INR 1.1, creatinine 0.49, BUN 16, normal ALT AST alkaline phosphatase and bilirubin. Troponin negative x 2. REVIEW OF SYSTEMS: CONSTITUTIONAL: No fever, no malaise, no fatigue. HEENT: No recent visual problems or hearing problems. Denied any sore throat. CARDIOVASCULAR: No chest pain, orthopnea, PND, no palpitations, no syncope. PULMONARY: No shortness of breath, no cough, no hemoptysis. GASTROINTESTINAL: Complains of nausea, no vomiting, complain of constipation, complains of abdominal pain and distention. NEUROLOGICAL: No headaches, no weakness, no numbness. HEMATOLOGICAL: Denies any bleeding or petechiae. GENITOURINARY: Denies any burning micturition, frequency, or urgency. MUSCULOSKELETAL/RHEUMATOLOGICAL: Denies any joint pain, swelling, or any muscle pain. ENDOCRINE: Denies any polyuria or polydipsia. The rest of the 14-point review of systems is negative. PHYSICAL EXAMINATION: GENERAL: The patient is A&O x3, lethargic HEENT: EOMI, Sclerae anicteric, Moist Mucous membranes Neck: Supple, Non tender, No JVD PULMONARY: Equal breath souds B/L, No wheezing, No crackles. CARDIOVASCULAR: S1, S2 present. No murmurs, rubs, or gallops. ABDOMEN: Soft, tender, distended, normoactive bowel sounds. No guarding or rebound tenderness. MUSCULOSKELETAL: No edema, No cyanosis. No clubbing. Normal ROM. Intact peripheral pulses. EXTREMITIES: No cyanosis, clubbing, or pedal edema. NEUROLOGICAL: CN 2-12 grossly intact. No FND Assessment and plan: Acute diverticulitis with perforation: Sepsis: Fever: Patient was recently discharged on Ceftin and Flagyl yesterday. Presented with abdominal pain, distention, fever. IV fluids Zosyn General Surgery consult ID consult CT abdomen pelvis. Defibrillator shock: CAD status post stent in August 2020 through: AICD in place Hypertension Hyperlipidemia Chronic systolic CHF: Euvolemic A-fib with RVR: Patient reported having 1 shocks yesterday, 1 shock earlier today leading to patient having a fall. Monitor with telemetry Amiodarone per cardiology Resume home metoprolol Resume home aspirin and Plavix. Cardiology consulted DVT prophylaxis: SCD Monitor vital signs and labs Continue telemetry monitoring Labs and medication were reviewed. Continue same treatment. Resume home medication. Further recommendations as per clinical course of the patient Dictation was produced using [employer] dictation software. please excuse any g rammatical, word or spelling errors. Past Medical History Past Medical History: Atrial Fibrillation, Hyperlipidemia, Hypertension, Myocardial Infarction ([place]) Last Myocardial Infarction Date:: 09/07/2023 History of Any Multi-Drug Resistant Organisms: None Reported Past Surgical History: No Surgical Hx Reported, Heart Catheterization With Stent Additional Past Surgical History / Comment(s): Cardiac stents Past Anesthesia/Blood Transfusion Reactions: No Reported Reaction Past Psychological History: No Psychological Hx Reported Smoking Status: Never smoker Past Alcohol Use History: None Reported, Unable to Obtain Past Drug Use History: None Reported Medications and Allergies Home Medications Medication Instructions Recorded Confirmed Type Aspirin EC [Ecotrin Low Dose] 81 mg PO HS 12/02/17 05/16/24 History Atorvastatin [Lipitor] 40 mg PO DAILY #90 tab 09/11/23 05/16/24 Rx Clopidogrel [Plavix] 75 mg PO DAILY 30 Days #30 tab 09/11/23 05/16/24 Rx lisinopriL [Zestril] 20 mg PO BID #60 tab 09/11/23 05/16/24 Rx Empagliflozin [Jardiance] 10 mg PO DAILY 04/15/24 05/16/24 History Spironolactone 25 mg PO DAILY 04/15/24 05/16/24 History Metoprolol Succinate (ER) [Toprol 25 mg PO DAILY 05/09/24 05/16/24 History XL] Nitroglycerin Sl Tabs [Nitrostat] 0.4 mg SL Q5M PRN 05/09/24 05/16/24 History cefUROXime axetiL [Ceftin] 500 mg PO DIRECTED 05/16/24 05/16/24 History metroNIDAZOLE [Flagyl] 500 mg PO DIRECTED 05/16/24 05/16/24 History Allergies Allergy/AdvReac Type Severity Reaction Status Date / Time Iodinated Contrast Media Allergy Wheezing/hi Verified 05/16/24 14:02 ves iodine Allergy Wheezing/hi Verified 05/16/24 14:02 ves Physical Exam Vitals: Vital Signs Temp Pulse Pulse Resp BP Pulse Ox 05/16/24 15:15 100.3 F H 118 H 18 101/62 94 L 05/16/24 13:22 105 H 18 122/72 95 05/16/24 12:10 102 H 16 91/58 96 05/16/24 11:19 113 H 18 112/84 95 05/16/24 10:46 122 H 18 123/71 95 05/16/24 10:41 103 H 16 110/64 96 05/16/24 10:02 66 05/16/24 09:50 63 90/67 05/16/24 09:41 66 16 109/57 97 Intake and Output 05/16/24 05/16/24 05/16/24 06:59 14:59 22:59 Output Total 300 Balance -300 Output: Urine 300 Other: Weight 73.028 kg Results CBC & Chem 7: 05/16/24 09:58 05/16/24 09:58 Labs: Abnormal Lab Results - Last 24 Hours (Table) 05/16/24 05/16/24 Range/Units 09:58 09:58 WBC 13.4 H (3.8-10.6) k/uL Hgb 11.3 L (11.4-16.0) gm/dL MCV 79.6 L (80.0-100.0) fL MCH 24.8 L (25.0-35.0) pg Plt Count 453 H (150-450) k/uL Neutrophils # 11.9 H (1.3-7.7) k/uL Lymphocytes # 0.6 L (1.0-4.8) k/uL Sodium 135 L (137-145) mmol/L Creatinine 0.49 L (0.52-1.04) mg/dL Glucose 103 H (74-99) mg/dL Albumin 2.6 L (3.5-5.0) g/dL
[2024-05-16] MEDS: ATORVASTATIN 40 MG TAB PO SCH (16:48)
[2024-05-16] MEDS: polyethylene glycoL 3350 17 GM POWD.PACK PO SCH (17:38)
[2024-05-16] MEDS: PIPERACILLIN-TAZOBACTAM 3.375 GM in SODIUM CHLORIDE 0.9% 100 ML IVPB SCH (19:25)
[2024-05-16] MEDS: ASPIRIN 81 MG PO SCH (20:08)
--- NOTE | 2024-05-16 21:34 | CT ---
EXAMINATION TYPE: CT abdomen pelvis wo con DATE OF EXAM: 05/16/2024 COMPARISON: 05/09/2024 INDICATION: abd pain/uti DLP: 681.7 mGycm, Automated exposure control for dose reduction was used. CONTRAST: 0 mL of Isovue 300. Study performed without Oral Contrast TECHNIQUE: Axial images were obtained from above the diaphragm to the pubic rami in the axial plane a t 5 mm thick sections. Reconstructed images are reviewed on the computer in the coronal plane. FINDINGS: Limited CT sections are obtained the lung bases. The lung bases are clear. Heart size is mildly pro minent. CT ABDOMEN: Free air is present. This is increasing from the comparison study. Report was called to t he patient's nurse by Dr. Duncan by telephone at time of interpretation. Small amount of ascites is present. Liver: Normal Spleen: Normal Pancreas: Normal Adrenal glands: The adrenal glands are normal. Gallbladder: Normal Kidneys: No masses are evident. No hydronephrosis is present. No cysts are present. Delayed images were obtained through the kidneys, which remain unremarkable. Aorta: Vascular calcification is within the aorta. Inferior vena cava: Normal. CT PELVIS: Multiple diverticuli within the sigmoid colon. Correlate for acute diverticulitis. Free air is presen t. Abscess formation not clearly identified. This study is without oral contrast limiting bowel evalu ation. Appendix: Not identified. No dilated tubular structure or inflammatory change is evident. Urinary bladder: Normal. Genitourinary structures: Uterus and ovaries are unremarkable as visualized. Osseous structures: No suspicious lytic or sclerotic lesions. IMPRESSION: 1. Increasing pneumoperitoneum. 2. Worsening inflammatory changes adjacent to the sigmoid colon compatible with worsening diverticuli tis.
[2024-05-16] MEDS: AMIODARONE 450 MG in DEXTROSE 5% IN WATER 250 ML IV SCH (22:35)
[2024-05-17 07:35] LABS: ALT 8 U/L (4-34); AST 21 U/L (14-36); African American GFR (CKD) >90 (>60 ml/min/1.73 sqM); Albumin 2.4 g/dL (3.5-5.0); Alkaline Phosphatase 81 U/L (38-126); Anion Gap 3 mmol/L; Blood Urea Nitrogen 16 mg/dL (7-17); Calcium 8.2 mg/dL (8.4-10.2); Carbon Dioxide 28 mmol/L (22-30); Chloride 104 mmol/L (98-107); Glucose 108 mg/dL (74-99); Non-African American GFR(CKD) 88 (>60 ml/min/1.73 sqM); Potassium 3.6 mmol/L (3.5-5.1); Sodium 135 mmol/L (137-145); Total Bilirubin 0.8 mg/dL (0.2-1.3); Total Protein 5.8 g/dL (6.3-8.2)
[2024-05-17 07:37] LABS: Basophils % (A) 0 %; Eosinophils % (A) 0 %; HCT 34.9 % (34.0-46.0); HGB 10.9 gm/dL (11.4-16.0); Hypochromasia Marked; Lymphocytes # (A) 1.1 k/uL (1.0-4.8); Lymphocytes % (A) 6 %; MCHC 31.2 g/dL (31.0-37.0); MCV 80.1 fL (80.0-100.0); Mean Platelet Volume 6.9; Monocytes # (A) 1.1 k/uL (0-1.0); Monocytes % (A) 7 %; Neutrophils # (A) 14.5 k/uL (1.3-7.7); Neutrophils % (A) 86 %; Platelet Count 425 k/uL (150-450); RBC 4.36 m/uL (3.80-5.40); RDW 14.2 % (11.5-15.5); WBC 16.9 k/uL (3.8-10.6)
[2024-05-17] MEDS: DAPAGLIFLOZIN PROPANEDIOL 5 MG TABLET PO SCH (08:12)
[2024-05-17] MEDS: CLOPIDOGREL 75 MG TAB PO SCH (08:12)
[2024-05-17] MEDS ORDERED: METOPROLOL TARTRATE 25 MG TAB PO SCH (09:00)
[2024-05-17] MEDS ORDERED: ASPIRIN 325 MG TAB PO SCH (09:00)
[2024-05-17] MEDS: AMIODARONE 360 MG in DEXTROSE 5% IN WATER 200 ML IV SCH (09:43)
[2024-05-17 10:42] LABS: Chol/HDL Ratio 2.82 Ratio; LDL Cholesterol,Calculated 21.6 mg/dL (0.0-131.0); VLDL Calculation 15.24 mg/dL (5.00-40.00)
[2024-05-17] MEDS: HYDROmorphone 1 MG/ML 1 ML SYRINGE IVP PRN (11:32)
--- NOTE | 2024-05-17 11:54 | P.CRDCN ---
History of Present Illness History of present illness: HISTORY OF PRESENT ILLNESS: This is a 73-year-old female with a past medical history significant for diverticulitis, coronary artery disease, ischemic cardiomyopathy, hypertension, and hyperlipidemia. Patient follows in the office with Dr. Lopez. We have been asked to see the patient in consultation for defibrillator discharge. Patient examined at the bedside in the emergency room. Patient was admitted last week to the hospital secondary to diverticulitis with microperforation. Patient was treated conservatively and was discharged home on antibiotics. The patient reported back to the hospital with a chief complaint of her ICD firing. She continues to report SOB. She denies chest pain or pressure. DIAGNOSTICS: - EKG reveals paced rhythm with PVCs - Chest xray negative for acute process - Laboratory data: WBC 16.9. Hemoglobin 10.9. Platelet count 425. Sodium 135. Potassium 3.6. BUN 16. Creatinine 0.63. Troponin negative x 3 - Current home cardiac medications include aspirin 81 mg at night, Plavix 75 mg at night, Jardiance 10 mg daily, metoprolol succinate 25 mg daily, spironolactone 25 mg daily, lisinopril 20 mg twice a day - Most recent echocardiogram obtained in April 2024 revealed ejection fraction 40 to 45%, global hypokinesis, trace aortic regurgitation, trace tricuspid regurgitation, mild mitral regurgitation - Cardiac catheterization history: August 2023 with stenting of the proximal LAD REVIEW OF SYSTEMS: At the time of my exam: CONSTITUTIONAL: Denies fever or chills. HEENT: Denies blurred vision, vision changes, or eye pain. Denies hemoptysis CARDIOVASCULAR: Denies chest pain. Denies orthopnea. Denies PND. Denies palpitations RESPIRATORY: Denies shortness of breath. GASTROINTESTINAL: Denies abdominal pain. Denies nausea or vomiting. HEMATOLOGIC: Denies bleeding disorders. GENITOURINARY: Denies any blood in urine. SKIN: Denies pruitis. Denies rash. PHYSICAL EXAM: VITAL SIGNS: Reviewed. GENERAL: Well-developed in no acute distress. HEENT: Head is normocephalic. Pupils are equal, round. Sclerae anicteric. Mucous membranes of the mouth are moist. Neck supple. No JVD or thyromegaly LUNGS: Respirations even and unlabored. Lungs essentially clear to auscultation bilaterally. HEART: Irregular rate and rhythm. S1 and S2 heard. ABDOMEN: Soft. Tenderness with palpation. EXTREMITIES: Normal range of motion. No clubbing or cyanosis. Peripheral pulses intact. No lower extremity edema NEUROLOGIC: Awake and alert. Oriented x 3. ASSESSMENT: New onset atrial fibrillation, captured on ICD interrogation Inappropriate ICD discharge x 2, no VT/VF on ICD interrogation Diverticulitis with pneumoperitoneum Recent hospitalization for acute diverticulitis with microperforation Coronary artery disease with previous PCI, most recently to proximal LAD in August 2023 Ischemic cardiomyopathy 30% with recent ICD implantation, improved to 4045% Hypertension Hyperlipidemia PLAN: ICD was interrogated. Patient was shocked twice. However, no VT/VF was noted. Patient was in AFIB at that time meaning ICD inappropriately discharged. However patient does not have a history of atrial fibrillation. Patient will require anticoagulation postoperatively. Patient is NPO and can not take any oral medications. Will continue with IV amiodarone infusion at 1 mg/min until patient is able to take oral medications No absolute contraindications for patient to proceed with surgery from a cardiac standpoint Further recommendations pending patient course Nurse practitioner note has been reviewed by physician. Signing provider agrees with the documented findings, assessment, and plan of care documented by PSYCHOLOGIST EXPERIMENTAL as a scribe. Past Medical History Past Medical History: Atrial Fibrillation, Hyperlipidemia, Hypertension, Myocardial Infarction ([place]) Last Myocardial Infarction Date:: 09/07/2023 History of Any Multi-Drug Resistant Organisms: None Reported Past Surgical History: No Surgical Hx Reported, Heart Catheterization With Stent Additional Past Surgical History / Comment(s): Cardiac stents Past Anesthesia/Blood Transfusion Reactions: No Reported Reaction Past Psychological History: No Psychological Hx Reported Smoking Status: Never smoker Past Alcohol Use History: None Reported, Unable to Obtain Past Drug Use History: None Reported Medications and Allergies Home Medications Medication Instructions Recorded Confirmed Type Aspirin EC [Ecotrin Low Dose] 81 mg PO HS 12/02/17 05/16/24 History Atorvastatin [Lipitor] 40 mg PO DAILY #90 tab 09/11/23 05/16/24 Rx Clopidogrel [Plavix] 75 mg PO DAILY 30 Days #30 tab 09/11/23 05/16/24 Rx lisinopriL [Zestril] 20 mg PO BID #60 tab 09/11/23 05/16/24 Rx Empagliflozin [Jardiance] 10 mg PO DAILY 04/15/24 05/16/24 History Spironolactone 25 mg PO DAILY 04/15/24 05/16/24 History Metoprolol Succinate (ER) [Toprol 25 mg PO DAILY 05/09/24 05/16/24 History XL] Nitroglycerin Sl Tabs [Nitrostat] 0.4 mg SL Q5M PRN 05/09/24 05/16/24 History cefUROXime axetiL [Ceftin] 500 mg PO DIRECTED 05/16/24 05/16/24 History metroNIDAZOLE [Flagyl] 500 mg PO DIRECTED 05/16/24 05/16/24 History Allergies Allergy/AdvReac Type Severity Reaction Status Date / Time Iodinated Contrast Media Allergy Wheezing/hi Verified 05/16/24 14:02 ves iodine Allergy Wheezing/hi Verified 05/16/24 14:02 ves Physical Exam Vitals: Vital Signs Temp Pulse Resp BP Pulse Ox 05/17/24 10:00 117 H 24 118/53 97 05/17/24 06:15 105 H 18 102/49 98 05/17/24 03:00 107 H 18 116/44 92 L 05/17/24 02:00 111 H 24 110/51 92 L 05/17/24 01:07 98.6 F 109 H 18 112/67 95 05/17/24 01:00 120 H 24 05/17/24 00:00 129 H 33 H 100/66 05/16/24 23:00 130 H 25 H 110/96 96 05/16/24 22:43 110/96 05/16/24 22:42 98.6 F 114 H 20 94 L 05/16/24 22:00 129 H 26 H 106/96 95 05/16/24 21:42 112 H 17 106/96 92 L 05/16/24 21:00 107 H 25 H 94 L 05/16/24 20:00 123 H 25 H 110/52 94 L 05/16/24 19:39 99.5 F 106 H 18 05/16/24 19:00 120 H 25 H 100/56 93 L 05/16/24 18:00 109 H 30 H 128/45 94 L 05/16/24 17:00 107 H 19 108/91 92 L 05/16/24 16:53 100.0 F H 117 H 19 108/91 94 L 05/16/24 16:00 125 H 27 H 111/74 91 L 05/16/24 15:15 100.3 F H 118 H 18 101/62 94 L 05/16/24 15:00 130 H 26 H 135/93 93 L 05/16/24 14:00 116 H 28 H 134/113 94 L 05/16/24 13:22 105 H 18 122/72 95 05/16/24 13:00 120 H 24 129/69 94 L 05/16/24 12:10 102 H 16 91/58 96 05/16/24 12:00 98 21 129/74 95 Results 05/17/24 07:12 05/17/24 07:12 Cardiac Enzymes 05/16/24 05/16/24 05/17/24 Range/Units 13:43 16:52 07:12 AST 21 (14-36) U/L Troponin I 0.022 0.024 (0.000-0.034) ng/mL Lipids 05/17/24 Range/Units 07:12 Triglycerides 76.20 (0.00-149.00) mg/dL Cholesterol 57.00 (0.00-200.00) mg/dL HDL Cholesterol 20.20 L (40.00-60.00) mg/dL Cholesterol/HDL Ratio 2.82 Ratio CBC 05/17/24 Range/Units 07:12 WBC 16.9 H (3.8-10.6) k/uL RBC 4.36 (3.80-5.40) m/uL Hgb 10.9 L (11.4-16.0) gm/dL Hct 34.9 (34.0-46.0) % Plt Count 425 (150-450) k/uL Comprehensive Metabolic Panel 05/17/24 Range/Units 07:12 Sodium 135 L (137-145) mmol/L Potassium 3.6 (3.5-5.1) mmol/L Chloride 104 (98-107) mmol/L Carbon Dioxide 28 (22-30) mmol/L BUN 16 (7-17) mg/dL Creatinine 0.63 (0.52-1.04) mg/dL Glucose 108 H (74-99) mg/dL Calcium 8.2 L (8.4-10.2) mg/dL AST 21 (14-36) U/L ALT 8 (4-34) U/L Alkaline Phosphatase 81 (38-126) U/L Total Protein 5.8 L (6.3-8.2) g/dL Albumin 2.4 L (3.5-5.0) g/dL Current Medications Generic Name Dose Route Start Last Admin Trade Name Ovidioq PRN Reason Stop Dose Admin Aspirin 81 mg 05/16/24 21:00 05/16/24 20:08 Aspirin 81 Mg PO 81 mg HS ANABELLA Administration Atorvastatin Calcium 40 mg 05/16/24 16:00 05/17/24 08:11 Atorvastatin 40 Mg Tab PO 40 mg DAILY ANABELLA Administration Dapagliflozin 5 mg 05/17/24 09:00 05/17/24 08:12 Dapagliflozin Propanediol 5 Mg Tablet PO 5 mg DAILY ANABELLA Administration Hydromorphone HCl 1 mg 05/17/24 11:14 05/17/24 11:32 Hydromorphone 1 Mg/Ml 1 Ml Syringe IVP 1 mg Q3HR PRN Administration Pain Amiodarone HCl 360 mg/ 200 mls @ 33.333 mls/hr 05/17/24 09:00 05/17/24 09:43 Dextrose/Water IV 1 mg/min .Q6H ANABELLA 33.333 mls/hr Administration Protocol 1 MG/MIN Piperacillin Sod/Tazobactam 100 mls @ 25 mls/hr 05/17/24 16:00 Sod 3.375 gm/ Sodium Chloride IVPB Q8HR ANABELLA Protocol Nitroglycerin 0.4 mg 05/16/24 12:56 Nitroglycerin Sl Tabs 0.4 Mg Tab SUBLINGUAL Q5M PRN Chest Pain Polyethylene Glycol 17 gm 05/16/24 15:45 05/17/24 08:13 Polyethylene Glycol 3350 17 Gm Powd.Pack PO 17 gm DAILY ANABELLA Administration Senna 8.6 mg 05/16/24 15:33 Sennosides 8.6 Mg Tab PO BID PRN Constipation 05/17/24 07:12 05/17/24 07:12
[2024-05-17] MEDS ORDERED: LORazepam 2 MG/ML INJ IV PRN (12:57)
[2024-05-17] MEDS: LORazepam 2 MG/ML INJ IV STA (12:59)
--- NOTE | 2024-05-17 13:37 | P.GSCN ---
History of Present Illness Consult date: 05/17/24 Reason for Consult: diverticulitis History of present illness: this is a 73-year-old female who presents emergency room due to her defibrilla tor going off. Patient was recently in the hospital for treatment of diverticulitis with microperforation. Patient was discharged home 3 days ago. Patient states she has increased pain. Her CAT scan shows evidence of worsening diverticulitis. Past Medical History Past Medical History: Atrial Fibrillation, Hyperlipidemia, Hypertension, Myocardial Infarction ([place]) Last Myocardial Infarction Date:: 09/07/2023 History of Any Multi-Drug Resistant Organisms: None Reported Past Surgical History: No Surgical Hx Reported, Heart Catheterization With Stent Additional Past Surgical History / Comment(s): Cardiac stents Past Anesthesia/Blood Transfusion Reactions: No Reported Reaction Past Psychological History: No Psychological Hx Reported Smoking Status: Never smoker Past Alcohol Use History: None Reported, Unable to Obtain Past Drug Use History: None Reported Medications and Allergies Home Medications Medication Instructions Recorded Confirmed Type Aspirin EC [Ecotrin Low Dose] 81 mg PO HS 12/02/17 05/16/24 History Atorvastatin [Lipitor] 40 mg PO DAILY #90 tab 09/11/23 05/16/24 Rx Clopidogrel [Plavix] 75 mg PO DAILY 30 Days #30 tab 09/11/23 05/16/24 Rx lisinopriL [Zestril] 20 mg PO BID #60 tab 09/11/23 05/16/24 Rx Empagliflozin [Jardiance] 10 mg PO DAILY 04/15/24 05/16/24 History Spironolactone 25 mg PO DAILY 04/15/24 05/16/24 History Metoprolol Succinate (ER) [Toprol 25 mg PO DAILY 05/09/24 05/16/24 History XL] Nitroglycerin Sl Tabs [Nitrostat] 0.4 mg SL Q5M PRN 05/09/24 05/16/24 History cefUROXime axetiL [Ceftin] 500 mg PO DIRECTED 05/16/24 05/16/24 History metroNIDAZOLE [Flagyl] 500 mg PO DIRECTED 05/16/24 05/16/24 History Allergies Allergy/AdvReac Type Severity Reaction Status Date / Time Iodinated Contrast Media Allergy Wheezing/hi Verified 05/16/24 14:02 ves iodine Allergy Wheezing/hi Verified 05/16/24 14:02 ves Surgical - Exam Vital Signs Pulse Resp BP Pulse Ox 66 16 109/57 97 05/16/24 09:41 05/16/24 09:41 05/16/24 09:41 05/16/24 09:41 - General well developed, moderate distress - Eyes PERRL - ENT normal pinna - Neck no masses - Respiratory normal expansion - Cardiovascular Rhythm: regular - Abdomen Abdomen is soft. There is abdominal distention. There is tenderness throughout. Results - Labs 05/17/24 07:12 05/17/24 07:12 Abnormal Lab Results - Last 24 Hours (Table) 05/17/24 05/17/24 Range/Units 07:12 07:12 WBC 16.9 H (3.8-10.6) k/uL Hgb 10.9 L (11.4-16.0) gm/dL Neutrophils # 14.5 H (1.3-7.7) k/uL Monocytes # 1.1 H (0-1.0) k/uL Sodium 135 L (137-145) mmol/L Glucose 108 H (74-99) mg/dL Calcium 8.2 L (8.4-10.2) mg/dL Total Protein 5.8 L (6.3-8.2) g/dL Albumin 2.4 L (3.5-5.0) g/dL HDL Cholesterol 20.20 L (40.00-60.00) mg/dL Diabetes panel 05/17/24 Range/Units 07:12 Sodium 135 L (137-145) mmol/L Potassium 3.6 (3.5-5.1) mmol/L Chloride 104 (98-107) mmol/L Carbon Dioxide 28 (22-30) mmol/L BUN 16 (7-17) mg/dL Creatinine 0.63 (0.52-1.04) mg/dL Glucose 108 H (74-99) mg/dL Calcium 8.2 L (8.4-10.2) mg/dL AST 21 (14-36) U/L ALT 8 (4-34) U/L Alkaline Phosphatase 81 (38-126) U/L Total Protein 5.8 L (6.3-8.2) g/dL Albumin 2.4 L (3.5-5.0) g/dL Triglycerides 76.20 (0.00-149.00) mg/dL HDL Cholesterol 20.20 L (40.00-60.00) mg/dL Thyroid panel 05/17/24 Range/Units 07:12 TSH 2.220 (0.465-4.680) mIU/L Calcium panel 05/17/24 Range/Units 07:12 Calcium 8.2 L (8.4-10.2) mg/dL Albumin 2.4 L (3.5-5.0) g/dL Pituitary panel 05/17/24 05/17/24 Range/Units 07:12 07:12 Sodium 135 L (137-145) mmol/L Potassium 3.6 (3.5-5.1) mmol/L Chloride 104 (98-107) mmol/L Carbon Dioxide 28 (22-30) mmol/L BUN 16 (7-17) mg/dL Creatinine 0.63 (0.52-1.04) mg/dL Glucose 108 H (74-99) mg/dL Calcium 8.2 L (8.4-10.2) mg/dL TSH 2.220 (0.465-4.680) mIU/L Adrenal panel 05/17/24 Range/Units 07:12 Sodium 135 L (137-145) mmol/L Potassium 3.6 (3.5-5.1) mmol/L Chloride 104 (98-107) mmol/L Carbon Dioxide 28 (22-30) mmol/L BUN 16 (7-17) mg/dL Creatinine 0.63 (0.52-1.04) mg/dL Glucose 108 H (74-99) mg/dL Calcium 8.2 L (8.4-10.2) mg/dL Total Bilirubin 0.8 (0.2-1.3) mg/dL AST 21 (14-36) U/L ALT 8 (4-34) U/L Alkaline Phosphatase 81 (38-126) U/L Total Protein 5.8 L (6.3-8.2) g/dL Albumin 2.4 L (3.5-5.0) g/dL - Imaging CT scan - pelvis: pending ( CT scan shows worsening diverticulitis with actual increase in the amount of free air.) Assessment and Plan Assessment: Diverticulitis with perforation. Patient received Plavix today. Patient will be scheduled for surgery due to the risk of bleeding tomorrow. Patient will be fluid resuscitated and started on IV antibiotics.
--- NOTE | 2024-05-17 15:10 | P.PN ---
Subjective Progress Note Date: 05/17/24 Interval History: 73-year-old female with past medical history significant for atrial fibrillation, AICD in place, ischemic cardiomyopathy with a EF 45%, coronary artery disease status post stenting August 2023, hypertension, hyperlipidemia who presented to ER with a complaint of defibrillator shock. Patient was discharged yesterday on oral antibiotics Ceftin and Flagyl, when patient was admitted for acute diverticulitis with perforation, infectious disease and general surgery was consulted and patient was continued on medical management during hospitalization and eventually discharged after clearance from general surgery after patient symptoms improved. Patient reported that she had of defibrillator shock yesterday, had 1 more shock earlier today leading to fall. Patient reported that she has not had a bowel movement. Patient has not started her home medication. Patient also reported fever and chills, reported abdominal distention, reported abdominal pain is same. Patient denied any headache, sore throat, productive cough, shortness of breath, chest pain, palpitations, dysuria urgency frequency weakness or numbness of extremities. Vitals: Temperature 100.3, heart rate 118, respiratory rate 18, blood pressure 101/62, saturating 94% on room air. Labs: WBCs 13.4, trending down, hemoglobin 11.3, platelets 453, INR 1.1, creatinine 0.49, BUN 16, normal ALT AST alkaline phosphatase and bilirubin. 05/17--patient was seen and examined today. Complaining of abdominal pain, nausea. Patient CT abdomen pelvis overnight showed acute diverticulitis with perforation with worsening pneumoperitoneum, general surgery consulted and following, planning for OR tomorrow as patient received Plavix today. Remains on amiodarone drip per cardiology. Monitor with telemetry. N.p.o., IV fluids, hold Farxiga. Assessment and plan: Acute diverticulitis with perforation: Worsening pneumoperitoneum Sepsis: Fever: Patient was recently discharged on Ceftin and Flagyl yesterday Presented with abdominal pain, distention, fever IV fluids Zosyn General Surgery consulted--plan for OR tomorrow ID consult CT abdomen pelvis--showed diverticulitis with perforation, worsening pneumoperitoneum. Defibrillator shock: CAD status post stent in August 2023: AICD in place Hypertension Hyperlipidemia Chronic systolic CHF: Euvolemic A-fib with RVR: Patient reported having 2 shocks prior to presentation leading to a fall. Monitor with telemetry Amiodarone per cardiology Resume home metoprolol Hold anticoagulation. Resume home aspirin and hold Plavix. Cardiology consulted and following DVT prophylaxis: SCD PHYSICAL EXAMINATION: GENERAL: The patient is A&O x3, NAD HEENT: EOMI, Sclerae anicteric, Moist Mucous membranes Neck: Supple, Non tender, No JVD PULMONARY: Equal breath souds B/L, No wheezing, No crackles. CARDIOVASCULAR: S1, S2 present. No murmurs, rubs, or gallops. ABDOMEN: Tender, distended. Normoactive bowel sounds. MUSCULOSKELETAL: No edema, No cyanosis. No clubbing. Normal ROM. Intact peripheral pulses. EXTREMITIES: No cyanosis, clubbing, or pedal edema. NEUROLOGICAL: CN 2-12 grossly intact. No FND Skin: No Rash REVIEW OF SYSTEMS: CONSTITUTIONAL: No fever or chills. CARDIOVASCULAR: No chest pain, palpitations or syncope. PULMONARY: No shortness of breath, no cough, sore throat. GASTROINTESTINAL: No nausea, vomiting, diarrhea, abdominal pain. : No Dysuria, urgency, frequency. Extremities: No edema. NEUROLOGICAL: No headaches, no weakness, or numbness Dictation was produced using [employer] dictation software. please excuse any grammatical, word or spelling errors. Objective - Vital Signs Vital signs: Vital Signs Temp 98.6 F 05/17/24 01:07 Pulse 112 H 05/17/24 14:00 Resp 14 05/17/24 14:00 BP 103/52 05/17/24 14:00 Pulse Ox 95 05/17/24 14:00 FiO2 Intake & Output 05/16/24 05/17/24 05/17/24 18:59 06:59 18:59 Output Total 300 Balance -300 Weight 73.028 kg Output: Urine 300 - Labs CBC & Chem 7: 05/17/24 07:12 05/17/24 07:12 Labs: Abnormal Lab Results - Last 24 Hours (Table) 05/17/24 05/17/24 Range/Units 07:12 07:12 WBC 16.9 H (3.8-10.6) k/uL Hgb 10.9 L (11.4-16.0) gm/dL Neutrophils # 14.5 H (1.3-7.7) k/uL Monocytes # 1.1 H (0-1.0) k/uL Sodium 135 L (137-145) mmol/L Glucose 108 H (74-99) mg/dL Calcium 8.2 L (8.4-10.2) mg/dL Total Protein 5.8 L (6.3-8.2) g/dL Albumin 2.4 L (3.5-5.0) g/dL HDL Cholesterol 20.20 L (40.00-60.00) mg/dL
[2024-05-17] MEDS: SODIUM CHLORIDE 0.9% 1,000 ML IV SCH (15:48)
[2024-05-17] MEDS: PIPERACILLIN-TAZOBACTAM 3.375 GM in SODIUM CHLORIDE 0.9% 100 ML IVPB SCH (15:52)
[2024-05-17] MEDS: METOCLOPRAMIDE 5 MG/ML 2 ML VIAL IVP PRN (15:56)
[2024-05-18 07:04] LABS: Basophils % (A) 0 %; Eosinophils % (A) 0 %; HCT 35.6 % (34.0-46.0); HGB 11.2 gm/dL (11.4-16.0); Hypochromasia Moderate; Lymphocytes # (A) 0.8 k/uL (1.0-4.8); Lymphocytes % (A) 5 %; MCH 25.3 pg (25.0-35.0); MCHC 31.4 g/dL (31.0-37.0); MCV 80.6 fL (80.0-100.0); Mean Platelet Volume 7.4; Monocytes # (A) 1.1 k/uL (0-1.0); Monocytes % (A) 8 %; Neutrophils # (A) 12.2 k/uL (1.3-7.7); Neutrophils % (A) 85 %; Platelet Count 407 k/uL (150-450); RBC 4.42 m/uL (3.80-5.40); RDW 14.5 % (11.5-15.5); WBC 14.4 k/uL (3.8-10.6)
[2024-05-18 07:21] LABS: ALT 8 U/L (4-34); AST 26 U/L (14-36); African American GFR (CKD) >90 (>60 ml/min/1.73 sqM); Albumin 2.4 g/dL (3.5-5.0); Alkaline Phosphatase 90 U/L (38-126); Anion Gap 8 mmol/L; Blood Urea Nitrogen 17 mg/dL (7-17); Calcium 8.4 mg/dL (8.4-10.2); Carbon Dioxide 23 mmol/L (22-30); Chloride 104 mmol/L (98-107); Glucose 92 mg/dL (74-99); Non-African American GFR(CKD) >90 (>60 ml/min/1.73 sqM); Potassium 3.3 mmol/L (3.5-5.1); Sodium 135 mmol/L (137-145); Total Bilirubin 0.7 mg/dL (0.2-1.3); Total Protein 5.9 g/dL (6.3-8.2)
--- NOTE | 2024-05-18 08:03 | P.CONS ---
History of Present Illness - Reason for Consult Consult date: 05/17/24 Acute appendicitis Requesting physician: Audi Mack - Chief Complaint Defibrillator discharge x 1 day - History of Present Illness Patient is a 73-year-old female with a past medical history significant for hypertension hyperlipidemia ID atrial fibrillation, patient was recently admitted at this facility and has been diagnosed with a diverticulitis with microperforation treated with Zosyn patient was cleared for discharge by surgery on 05/15/2024 and as the patient was insisting on going home reluctantly signed out Ceftin and Flagyl patient mention on the day of presentation to the hospital the patient did have discharge from the defibrillator and subsequently did have a fall EMS was called and and on the way back to the hospital the patient did have another discharge from the defibrillator patient did have a fever 100.3 on arrival to the ER patient was tachycardic but not hypotensive or hypoxic and did have white count of 13.4 which is up to 16.9 today with a left shift creatinine was normal liver enzymes are normal patient did have a chest x- ray no acute cardiopulmonary disease process did have a CT abdominal pelvis increasing pneumoperitoneum or significantly changes adjacent to the sigmoid colon compatible with worsening diverticulitis patient was started on Zosyn infectious he was consulted for further management of antibiotic therapy Review of Systems Positive point and negatives has been mentioned in the HPI, complete review of systems was performed and all other systems are negative Past Medical History Past Medical History: Atrial Fibrillation, Hyperlipidemia, Hypertension, Myocardial Infarction (ID) Last Myocardial Infarction Date:: 09/07/2023 History of Any Multi-Drug Resistant Organisms: None Reported Past Surgical History: No Surgical Hx Reported, Heart Catheterization With Stent Additional Past Surgical History / Comment(s): Cardiac stents Past Anesthesia/Blood Transfusion Reactions: No Reported Reaction Past Psychological History: No Psychological Hx Reported Smoking Status: Never smoker Past Alcohol Use History: None Reported, Unable to Obtain Past Drug Use History: None Reported Medications and Allergies Home Medications Medication Instructions Recorded Confirmed Type Aspirin EC [Ecotrin Low Dose] 81 mg PO HS 12/02/17 05/16/24 History Atorvastatin [Lipitor] 40 mg PO DAILY #90 tab 09/11/23 05/16/24 Rx Clopidogrel [Plavix] 75 mg PO DAILY 30 Days #30 tab 09/11/23 05/16/24 Rx lisinopriL [Zestril] 20 mg PO BID #60 tab 09/11/23 05/16/24 Rx Empagliflozin [Jardiance] 10 mg PO DAILY 04/15/24 05/16/24 History Spironolactone 25 mg PO DAILY 04/15/24 05/16/24 History Metoprolol Succinate (ER) [Toprol 25 mg PO DAILY 05/09/24 05/16/24 History XL] Nitroglycerin Sl Tabs [Nitrostat] 0.4 mg SL Q5M PRN 05/09/24 05/16/24 History cefUROXime axetiL [Ceftin] 500 mg PO DIRECTED 05/16/24 05/16/24 History metroNIDAZOLE [Flagyl] 500 mg PO DIRECTED 05/16/24 05/16/24 History Allergies Allergy/AdvReac Type Severity Reaction Status Date / Time Iodinated Contrast Media Allergy Wheezing/hi Verified 05/16/24 14:02 ves iodine Allergy Wheezing/hi Verified 05/16/24 14:02 ves Physical Exam Vitals: Vital Signs Temp Pulse Resp BP Pulse Ox 05/17/24 10:00 117 H 24 118/53 97 05/17/24 06:15 105 H 18 102/49 98 05/17/24 03:00 107 H 18 116/44 92 L 05/17/24 02:00 111 H 24 110/51 92 L 05/17/24 01:07 98.6 F 109 H 18 112/67 95 05/17/24 01:00 120 H 24 05/17/24 00:00 129 H 33 H 100/66 05/16/24 23:00 130 H 25 H 110/96 96 05/16/24 22:43 110/96 05/16/24 22:42 98.6 F 114 H 20 94 L 05/16/24 22:00 129 H 26 H 106/96 95 05/16/24 21:42 112 H 17 106/96 92 L 05/16/24 21:00 107 H 25 H 94 L 05/16/24 20:00 123 H 25 H 110/52 94 L 05/16/24 19:39 99.5 F 106 H 18 05/16/24 19:00 120 H 25 H 100/56 93 L 05/16/24 18:00 109 H 30 H 128/45 94 L 05/16/24 17:00 107 H 19 108/91 92 L 05/16/24 16:53 100.0 F H 117 H 19 108/91 94 L 05/16/24 16:00 125 H 27 H 111/74 91 L 05/16/24 15:15 100.3 F H 118 H 18 101/62 94 L 05/16/24 15:00 130 H 26 H 135/93 93 L 05/16/24 14:00 116 H 28 H 134/113 94 L 05/16/24 13:22 105 H 18 122/72 95 05/16/24 13:00 120 H 24 129/69 94 L GENERAL DESCRIPTION: Elderly female lying in bed, no distress. No tachypnea or accessory muscle of respiration use. HEENT: Shows Pallor , no scleral icterus. Oral mucous membrane is dry. No pharyngeal erythema or thrush NECK: Trachea central, no thyromegaly. LUNGS: Unlabored breathing. Clear to auscultation anteriorly. No wheeze or crackle. HEART: S1, S2, regular rate and rhythm. No loud murmur ABDOMEN: Soft, mild distention and tenderness EXTREMITIES: No edema of feet. SKIN: No rash, no masses palpable. NEUROLOGICAL: The patient is awake, alert, oriented x3, mood and affect normal. Results CBC & Chem 7: 05/18/24 06:33 05/18/24 06:33 Labs: Abnormal Lab Results - Last 24 Hours (Table) 05/17/24 05/17/24 Range/Units 07:12 07:12 WBC 16.9 H (3.8-10.6) k/uL Hgb 10.9 L (11.4-16.0) gm/dL Neutrophils # 14.5 H (1.3-7.7) k/uL Monocytes # 1.1 H (0-1.0) k/uL Sodium 135 L (137-145) mmol/L Glucose 108 H (74-99) mg/dL Calcium 8.2 L (8.4-10.2) mg/dL Total Protein 5.8 L (6.3-8.2) g/dL Albumin 2.4 L (3.5-5.0) g/dL HDL Cholesterol 20.20 L (40.00-60.00) mg/dL Assessment and Plan (1) Intra-abdominal abscess Current Visit: Yes Status: Acute Code(s): K65.1 - PERITONEAL ABSCESS SNOMED Code(s): 06224452 (2) Peritonitis Current Visit: Yes Status: Acute Code(s): K65.9 - PERITONITIS, UNSPECIFIED SNOMED Code(s): 08687015 (3) Perforation of sigmoid colon due to diverticulitis Current Visit: No Status: Acute Code(s): K57.20 - DVTRCLI OF LG INT W PERFORATION AND ABSCESS W/O BLEEDING SNOMED Code(s): 0398102571536463 Plan: 1patient presented to hospital with sepsis in this patient who did have fever tachycardia elevated white count source is complicated diverticulitis now with evidence of pneumoperitoneum and worsening inflammatory changes will need to cover for the enteric gram-negative both aerobes and anaerobes 2-patient benefit from surgical intervention possible diverticular ostomy keeping in mind worsening inflammatory changes and pneumoperitoneum Alana is already Case discussed with admitting team 3-Zosyn 3.375 g every 8 hours should provide adequate empiric coverage We will follow on clinical condition and cultures to further adjust medication if needed Thank you for this consultation we will follow the patient along with you Dictation was produced using [employer] dictation software. please excuse any grammatical, word or spelling errors. Time with Patient: Greater than 30
[2024-05-18] MEDS: IV FLUID CONTINUATION 1,000 ML IV ONE ×3 (08:05→11:11)
[2024-05-18] MEDS ORDERED: ROCURONIUM 10 MG/ML (5 ML VIAL) IV ONE (08:07)
[2024-05-18] MEDS ORDERED: SUGAMMADEX SODIUM 200 MG/2 ML SDV IV ONE (08:07)
[2024-05-18] MEDS ORDERED: fentaNYL (PF) 50 MCG/ML 2 ML AMP ONE (08:07)
[2024-05-18] MEDS ORDERED: ETOMIDATE 2 MG/ML 10 ML VIAL ONE (08:07)
[2024-05-18] MEDS ORDERED: MIDAZOLAM 2 MG/2 ML VIAL ONE (08:07)
[2024-05-18] MEDS ORDERED: PHENYLEPHRINE-0.9% NACL SYG 1,000 MCG/10 ML SYRINGE ONE (08:07)
[2024-05-18] MEDS ORDERED: LIDOCAINE 1% INJ 10MG/ML (20 ML MDV) ONE (08:07)
[2024-05-18] MEDS ORDERED: SUCCINYLCHOLINE CHLORIDE 200 MG/10 ML VIAL IV ONE (08:07)
[2024-05-18] MEDS: ONDANSETRON 4 MG/2 ML VIAL IVP STA (10:07)
[2024-05-18] MEDS: HYDROmorphone 0.5 MG/0.5 ML SYRINGE IVP PRN (10:14)
[2024-05-18] MEDS ORDERED: BENZOCAINE/MENTHOL LOZENG 1 EACH LOZENGE MUCOUS MEM PRN (10:22)
[2024-05-18] MEDS ORDERED: METOCLOPRAMIDE 5 MG/ML 2 ML VIAL IVP PRN (10:22)
--- NOTE | 2024-05-18 11:21 | P.OP ---
Date of Procedure: 05/18/24 Preoperative Diagnosis: Perforated diverticulitis Postoperative Diagnosis: Perforated diverticulitis Developing small bowel obstruction Procedure(s) Performed: Exploratory laparotomy Diverting colostomy Small bowel resection Anesthesia: MIMI Surgeon: Dario Valles Estimated Blood Loss (ml): 100 Pathology: other (Ileum) Condition: stable Disposition: PACU Operative Findings: Perforated diverticulitis with phlegmon a in left lower quadrant was sigmoid colon. Developing small bowel obstruction due to small bowel being caught in the phlegmon mass Description of Procedure: The patient is placed on the op table in the supine position. She received general anesthesia. Her abdomen is palpated. There was a mass palpated in the left lower quadrant. The skin incised midline. These electrocautery the abdominal wall was divided. The Bookwalter tract placed the wound. The patient had a significant inflammatory mass in the left lower quadrant. Colon was very inflamed. The small bowel was caught into the inflammatory mass in the distal terminal ileum. This was causing a obstruction. The small bowel was then dissected off of the inflammatory mass. It was decided to perform a small bowel resection due to the inflammation changes of the small bowel. The small bowel was then transected proximally distally approximately a 7 inch segment of small bowel was affected. It was divided with a DANE stapler. Then using the Enseal device the mesentery the bowel was divided. At this point it was decided not to perform a sigmoid resection due to the dense inflammation. At this point the left colon was transected just proximal to the phlegmon mass using a DANE stapler. The white line of Toldt was divided and then the colon was mobilized. The ileocolonic anastomosis then created using the DANE and TA staplers. A 302 0 silk suture was used to crotch stitch. At this point the colon was brought up through the left upper quadrant. And then the abdomen is irrigated with 4 L of normal saline. A VAUGHN drain was placed in the pelvis and brought through a separate stab incision. The fascia was then closed with looped #1 PDS suture. Skin was closed with cinda. Several openings were left in the skin closure for Telfa jamse. The colostomy then matured using 3-0 Vicryl. Patient tolerated procedure well. She was sent to recovery room in stable condition.
[2024-05-18] MEDS: POTASSIUM CHLORIDE 10 MEQ in WATER FOR INJECTION 1 100ML.BAG IVPB SCH (11:55)
[2024-05-18] MEDS: D5-0.45% NACL WITH KCL 20MEQ/L 1,000 ML IV SCH (11:56)
[2024-05-18] MEDS: HYDROmorphone 0.5 MG/0.5 ML SYRINGE IVP STA (11:58)
[2024-05-18] MEDS: LACTATED RINGERS 1,000 ML BAG IV STA (12:09)
--- NOTE | 2024-05-18 12:29 | P.PN ---
Progress Note - Text Patient off the floor during cardiology rounds for surgery. Patient will be reevaluated tomorrow.
[2024-05-18 12:38] LABS: Basophils % (A) 0 %; Eosinophils % (A) 0 %; HCT 36.6 % (34.0-46.0); HGB 11.3 gm/dL (11.4-16.0); Hypochromasia Marked; Lymphocytes # (A) 0.5 k/uL (1.0-4.8); Lymphocytes % (A) 4 %; MCHC 30.8 g/dL (31.0-37.0); MCV 81.3 fL (80.0-100.0); Mean Platelet Volume 7.1; Monocytes # (A) 0.9 k/uL (0-1.0); Monocytes % (A) 7 %; Neutrophils # (A) 10.9 k/uL (1.3-7.7); Neutrophils % (A) 87 %; Platelet Count 461 k/uL (150-450); RDW 14.3 % (11.5-15.5); WBC 12.4 k/uL (3.8-10.6)
--- NOTE | 2024-05-18 12:42 | P.PN ---
Subjective Progress Note Date: 05/18/24 Principal diagnosis: Reason for follow-up is perforated diverticulitis and peritonitis Patient is a 73-year-old female with a past medical history significant for hypertension hyperlipidemia CA atrial fibrillation, patient was recently admitted at this facility and has been diagnosed with a diverticulitis with microperforation pending bed to the hospital with a defibrillator shock with repeat CT abdominal pelvis shows worsening pneumoperitoneum, patient was taken to the OR on 05/18/2024 status post small bowel resection because of adhesion that is and diverting colostomy operative report did not mention any abscess and no culture On today's evaluation that is 05/18/2024, patient did have resolution of fever and has been afebrile this afternoon, patient is breathing comfortably and is currently on room air, patient denies having any significant cough no chest pain shortness of breath, patient complaining of some but no nausea vomiting still complaining of significant abdominal pain postsurgery. Patient white count is down to 12.4 creatinine 0.50 Objective - Vital Signs Vital signs: Vital Signs Temp 97.3 F L 05/18/24 09:51 Pulse 103 H 05/18/24 11:17 Resp 18 05/18/24 11:17 BP 97/52 05/18/24 11:17 Pulse Ox 94 L 05/18/24 11:17 FiO2 Intake & Output 05/17/24 05/18/24 05/18/24 18:59 06:59 18:59 Intake Total 200 397.776 850 Output Total 350 Balance 200 397.776 500 Weight 77 kg Intake: IV 850 Intake, IV Titration 200 397.776 Amount Amiodarone 360 mg In 200 397.776 Dextrose 5% in Water 200 ml @ 1 MG/MIN 33.333 mls/ hr IV .Q6H [facility] Rx#: [id number] Output: Urine 250 Estimated Blood Loss 100 Other: Voiding Method External Catheter # Voids 1 # Bowel Movements 1 - Exam GENERAL DESCRIPTION: An elderly female lying in bed in no distress RESPIRATORY SYSTEM: Unlabored breathing , decreased breath sounds at bases HEART: S1 S2 regular rate and rhythm , ABDOMEN: Soft , mild tenderness EXTREMITIES: No edema feet - Labs CBC & Chem 7: 05/18/24 12:22 05/18/24 06:33 Labs: Abnormal Lab Results - Last 24 Hours (Table) 05/18/24 05/18/2405/18/24 Range/Units 06:33 06:33 12:22 WBC 14.4 H 12.4 H (3.8-10.6) k/uL Hgb 11.2 L 11.3 L (11.4-16.0) gm/dL MCHC 30.8 L (31.0-37.0) g/dL Plt Count 461 H (150-450) k/uL Neutrophils # 12.2 H 10.9 H (1.3-7.7) k/uL Lymphocytes # 0.8 L 0.5 L (1.0-4.8) k/uL Monocytes # 1.1 H (0-1.0) k/uL Sodium 135 L (137-145) mmol/L Potassium 3.3 L (3.5-5.1) mmol/L Creatinine 0.50 L (0.52-1.04) mg/dL Total Protein 5.9 L (6.3-8.2) g/dL Albumin 2.4 L (3.5-5.0) g/dL Assessment and Plan (1) Intra-abdominal abscess Current Visit: Yes Status: Acute Code(s): K65.1 - PERITONEAL ABSCESS SNOMED Code(s): 36899693 (2) Peritonitis Current Visit: Yes Status: Acute Code(s): K65.9 - PERITONITIS, UNSPECIFIED SNOMED Code(s): 55620992 (3) Perforation of sigmoid colon due to diverticulitis Current Visit: No Status: Acute Code(s): K57.20 - DVTRCLI OF LG INT W PERFORATION AND ABSCESS W/O BLEEDING SNOMED Code(s): 8143672944614021 Plan: 1patient presented to hospital with sepsis in this patient who did have fever tachycardia elevated white count source is complicated diverticulitis now with evidence of pneumoperitoneum and worsening inflammatory changes will need to cover for the enteric gram-negative both aerobes and anaerobes 2-patient is status post laparotomy small bowel resection and diverticular ostomy operative report did not mention any abscess and no culture 3-patient to continue Zosyn 3.375 g every 8 hours and monitor clinical course closely. Family the bedside questions answered Dictation was produced using [employer] dictation software. please excuse any grammatical, word or spelling errors. Time with Patient: Less than 30
[2024-05-18 12:44] LABS: African American GFR (CKD) >90 (>60 ml/min/1.73 sqM); Anion Gap 9 mmol/L; Blood Urea Nitrogen 19 mg/dL (7-17); Calcium 8.4 mg/dL (8.4-10.2); Carbon Dioxide 23 mmol/L (22-30); Chloride 104 mmol/L (98-107); Glucose 137 mg/dL (74-99); Non-African American GFR(CKD) 86 (>60 ml/min/1.73 sqM); Potassium 3.4 mmol/L (3.5-5.1); Sodium 136 mmol/L (137-145)
[2024-05-18] MEDS: HEPARIN SODIUM,PORCINE 5,000 UNIT/ML 1 ML VIAL SQ SCH (15:45)
--- NOTE | 2024-05-19 05:34 | P.PN ---
Subjective Progress Note Date: 05/18/24 73-year-old female with past medical history significant for atrial fibrillation, AICD in place, ischemic cardiomyopathy with a EF 45%, coronary artery disease status post stenting August 2023, hypertension, hyperlipidemia who presented to ER with a complaint of defibrillator shock. Patient was disch arged yesterday on oral antibiotics Ceftin and Flagyl, when patient was admitted for acute diverticulitis with perforation, infectious disease and general surgery was consulted and patient was continued on medical management during hospitalization and eventually discharged after clearance from general surgery after patient symptoms improved. Patient reported that she had of defibrillator shock yesterday, had 1 more shock earlier today leading to fall. Patient reported that she has not had a bowel movement. Patient has not started her home medication. Patient also reported fever and chills, reported abdominal distention, reported abdominal pain is same. Patient denied any headache, sore throat, productive cough, shortness of breath, chest pain, palpitations, dysuria urgency frequency weakness or numbness of extremities. Vitals: Temperature 100.3, heart rate 118, respiratory rate 18, blood pressure 101/62, saturating 94% on room air. Labs: WBCs 13.4, trending down, hemoglobin 11.3, platelets 453, INR 1.1, creatinine 0.49, BUN 16, normal ALT AST alkaline phosphatase and bilirubin. 05/17--patient was seen and examined today. Complaining of abdominal pain, nausea. Patient CT abdomen pelvis overnight showed acute diverticulitis with perforation with worsening pneumoperitoneum, general surgery consulted and following, planning for OR tomorrow as patient received Plavix today. Remains on amiodarone drip per cardiology. Monitor with telemetry. N.p.o., IV fluids, hold Farxiga. 05/18/2024 Patient is currently n.p.o. scheduled to undergo surgical intervention secondary to diverticulitis with perforation with general surgery. Will await surgical report. REVIEW OF SYSTEMS: CONSTITUTIONAL: No fever or chills. CARDIOVASCULAR: No chest pain, palpitations or syncope. PULMONARY: No shortness of breath, no cough, sore throat. GASTROINTESTINAL: No nausea, vomiting, diarrhea, abdominal pain. : No Dysuria, urgency, frequency. Extremities: No edema. NEUROLOGICAL: No headaches, no weakness, or numbness PHYSICAL EXAMINATION: GENERAL: The patient is A&O x3, NAD elderly appearing, ill-appearing, obese HEENT: EOMI, Sclerae anicteric, Moist Mucous membranes, NG tube noted Neck: Supple, Non tender, No JVD PULMONARY: Equal breath souds B/L, No wheezing, No crackles. CARDIOVASCULAR: S1, S2 present. No murmurs, rubs, or gallops. ABDOMEN: Tender, less distended. Tenderness and discomfort noted on palpation MUSCULOSKELETAL: No edema, No cyanosis. No clubbing. Normal ROM. Intact peripheral pulses. EXTREMITIES: No cyanosis, clubbing, or pedal edema. NEUROLOGICAL: CN 2-12 grossly intact. No FND Skin: No Rash Assessment: Acute diverticulitis with perforation: Worsening pneumoperitoneum with sepsis, present on admission Fevers, present on admission secondary to above defibrillator shock: With history of CAD status post stent in August [address] Hypertension Hyperlipidemia Chronic systolic CHF, not in exacerbation, currently euvolemic A-fib with RVR, currently rate controlled Obesity with a BMI 31.0 GI prophylaxis DVT prophylaxis Full code Plan: Patient is currently n.p.o. and scheduled for surgical intervention for diverticulitis with perforation with general surgery. Will await surgery report Follow-up on labs and replace electrolytes per protocol Continue n.p.o. diet until advance per surgery PT/OT therapy to evaluate The impression and plan of care has been dictated by Lisy Jones, Nurse Practitioner as directed. Dr. Ashlie MD I have performed a history and examination and MDM of this patient, discussed th e same with the dictator, and agree with the dictator's assessment and plan as written ,documented as a scribe. Based on total visit time, I have performed more than 50% of the visit. Objective - Vital Signs Vital signs: Vital Signs Temp 99.3 F 05/18/24 07:47 Pulse 124 H 05/18/24 07:47 Resp 15 05/18/24 07:47 BP 115/71 05/18/24 07:47 Pulse Ox 93 L 05/18/24 07:47 FiO2 Intake & Output 05/17/24 05/18/24 05/18/24 18:59 06:59 18:59 Intake Total 200 397.776 100 Balance 200 397.776 100 Weight 77 kg Intake: IV 100 Intake, IV Titration 200 397.776 Amount Amiodarone 360 mg In 200 397.776 Dextrose 5% in Water 200 ml @ 1 MG/MIN 33.333 mls/ hr IV .Q6H [facility] Rx#: [id number] Other: Voiding Method External Catheter # Voids 1 # Bowel Movements 1 - Labs CBC & Chem 7: 05/18/24 12:22 05/18/24 12:22 Labs: Abnormal Lab Results - Last 24 Hours (Table) 05/17/24 05/18/24 05/18/24 Range/Units 07:12 06:33 06:33 WBC 14.4 H (3.8-10.6) k/uL Hgb 11.2 L (11.4-16.0) gm/dL Neutrophils # 12.2 H (1.3-7.7) k/uL Lymphocytes # 0.8 L (1.0-4.8) k/uL Monocytes # 1.1 H (0-1.0) k/uL Sodium 135 L (137-145) mmol/L Potassium 3.3 L (3.5-5.1) mmol/L Creatinine 0.50 L (0.52-1.04) mg/dL Total Protein 5.9 L (6.3-8.2) g/dL Albumin 2.4 L (3.5-5.0) g/dL HDL Cholesterol 20.20 L (40.00-60.00) mg/dL
[2024-05-19 07:32] LABS: Basophils % (A) 0 %; Eosinophils % (A) 0 %; HCT 34.3 % (34.0-46.0); HGB 10.4 gm/dL (11.4-16.0); Hypochromasia Marked; Lymphocytes # (A) 0.7 k/uL (1.0-4.8); Lymphocytes % (A) 4 %; MCH 25.3 pg (25.0-35.0); MCHC 30.3 g/dL (31.0-37.0); MCV 83.4 fL (80.0-100.0); Mean Platelet Volume 6.9; Monocytes # (A) 1.2 k/uL (0-1.0); Monocytes % (A) 7 %; Neutrophils # (A) 15.2 k/uL (1.3-7.7); Neutrophils % (A) 88 %; Platelet Count 390 k/uL (150-450); RBC 4.11 m/uL (3.80-5.40); RDW 14.7 % (11.5-15.5); WBC 17.3 k/uL (3.8-10.6)
[2024-05-19 07:48] LABS: ALT 10 U/L (4-34); AST 28 U/L (14-36); African American GFR (CKD) 43 (>60 ml/min/1.73 sqM); Albumin 2.1 g/dL (3.5-5.0); Alkaline Phosphatase 76 U/L (38-126); Anion Gap 11 mmol/L; Blood Urea Nitrogen 29 mg/dL (7-17); Calcium 8.3 mg/dL (8.4-10.2); Carbon Dioxide 19 mmol/L (22-30); Chloride 103 mmol/L (98-107); Glucose 169 mg/dL (74-99); Magnesium 1.7 mg/dL (1.6-2.3); Non-African American GFR(CKD) 37 (>60 ml/min/1.73 sqM); Potassium 3.8 mmol/L (3.5-5.1); Sodium 133 mmol/L (137-145); Total Bilirubin 0.5 mg/dL (0.2-1.3); Total Protein 5.3 g/dL (6.3-8.2)
[2024-05-19] MEDS: PANTOPRAZOLE 40 MG/10 ML VIAL IVP SCH (10:59)
--- NOTE | 2024-05-19 11:49 | P.PN ---
Subjective HISTORY OF PRESENT ILLNESS: This is a 73-year-old female with a past medical history significant for diverticulitis, coronary artery disease, ischemic cardiomyopathy, hypertension, and hyperlipidemia. Patient follows in the office with Dr. Lopez. We have been asked to see the patient in consultation for defibrillator discharge. Patient examined at the bedside in the emergency room. Patient was admitted last week to the hospital secondary to diverticulitis with microperforation. Patient was treated conservatively and was discharged home on antibiotics. The patient reported back to the hospital with a chief complaint of her ICD firing. She continues to report SOB. She denies chest pain or pressure. DIAGNOSTICS: - EKG reveals paced rhythm with PVCs - Chest xray negative for acute process - Laboratory data: WBC 16.9. Hemoglobin 10.9. Platelet count 425. Sodium 135. Potassium 3.6. BUN 16. Creatinine 0.63. Troponin negative x 3 - Current home cardiac medications include aspirin 81 mg at night, Plavix 75 mg at night, Jardiance 10 mg daily, metoprolol succinate 25 mg daily, spironolactone 25 mg daily, lisinopril 20 mg twice a day - Most recent echocardiogram obtained in April 2024 revealed ejection fraction 40 to 45%, global hypokinesis, trace aortic regurgitation, trace tricuspid regurgitation, mild mitral regurgitation - Cardiac catheterization history: August 2023 with stenting of the proximal LAD 05/19/2024 Patient is status post exploratory laparotomy, small bowel resection, and diverting colostomy. Patient denies chest pain or pressure. Denies shortness of breath. Telemetry reveals paced rhythm. Patient remains NPO. PHYSICAL EXAM: VITAL SIGNS: Reviewed. GENERAL: Well-developed in no acute distress. HEENT: Head is normocephalic. Pupils are equal, round. Sclerae anicteric. Mucous membranes of the mouth are moist. Neck supple. No JVD or thyromegaly LUNGS: Respirations even and unlabored. Lungs essentially clear to auscultation bilaterally. HEART: Irregular rate and rhythm. S1 and S2 heard. ABDOMEN: Soft. Tenderness with palpation. EXTREMITIES: Normal range of motion. No clubbing or cyanosis. Peripheral pulses intact. No lower extremity edema NEUROLOGIC: Awake and alert. Oriented x 3. ASSESSMENT: New onset atrial fibrillation, captured on ICD interrogation Inappropriate ICD discharge x 2, no VT/VF on ICD interrogation Diverticulitis with pneumoperitoneum status post exploratory laparotomy, diverting colostomy and small bowel resection Recent hospitalization for acute diverticulitis with microperforation Coronary artery disease with previous PCI, most recently to proximal LAD in August 2023 Ischemic cardiomyopathy 30% with recent ICD implantation, improved to 4045% Hypertension Hyperlipidemia PLAN: ICD was interrogated. Patient was shocked twice. However, no VT/VF was noted. Patient was in AFIB at that time meaning ICD inappropriately discharged. However patient does not have a history of atrial fibrillation. Patient will require anticoagulation postoperatively when cleared by general surgery Patient is NPO and can not take any oral medications. Will continue with IV amiodarone infusion at 1 mg/min until patient is able to take oral medications Further recommendations pending patient course Nurse practitioner note has been reviewed by physician. Signing provider agrees with the documented findings, assessment, and plan of care documented by GRINDING SUPERVISOR as a scribe. Objective - Vital Signs Vital signs: Vital Signs Temp 96.4 F L 05/19/24 08:20 Pulse 70 05/19/24 08:30 Resp 18 05/19/24 08:30 BP 110/55 05/19/24 08:20 Pulse Ox 94 L 05/19/24 08:20 FiO2 Intake & Output 05/18/24 05/19/24 05/19/24 18:59 06:59 18:59 Intake Total 1050 1469.997 200 Output Total 510 320 Balance 540 1149.997 200 Weight 77 kg Intake: IV 850 Intake, IV Titration 200 1469.997 200 Amount Amiodarone 360 mg In 200 369.997 200 Dextrose 5% in Water 200 ml @ 1 MG/MIN 33.333 mls/ hr IV .Q6H [facility] Rx#: [id number] D5-0.45% NaCl with KCl 1000 20Meq/l 1,000 ml @ 125 mls/hr IV .Q8H [facility] Rx#: [id number] Piperacillin-Tazobactam 3 100 .375 gm In Sodium Chloride 0.9% 100 ml @ 25 mls/hr IVPB Q8HR [facility] Rx# :[id number] Oral 0 Output: Drainage 160 70 Right Abdomen 160 70 Urine 250 250 Estimated Blood Loss 100 Other: Voiding Method Indwelling Catheter Indwelling Catheter Indwelling Catheter - Labs CBC & Chem 7: 05/19/24 07:02 05/19/24 07:02 Labs: Abnormal Lab Results - Last 24 Hours (Table) 05/18/24 05/18/24 05/19/24 Range/Units 12:22 12:22 07:02 WBC 12.4 H 17.3 H (3.8-10.6) k/uL Hgb 11.3 L 10.4 L (11.4-16.0) gm/dL MCHC 30.8 L 30.3 L (31.0-37.0) g/dL Plt Count 461 H (150-450) k/uL Neutrophils # 10.9 H 15.2 H (1.3-7.7) k/uL Lymphocytes # 0.5 L 0.7 L (1.0-4.8) k/uL Monocytes # 1.2 H (0-1.0) k/uL Sodium 136 L (137-145) mmol/L Potassium 3.4 L (3.5-5.1) mmol/L Carbon Dioxide (22-30) mmol/L BUN 19 H (7-17) mg/dL Creatinine (0.52-1.04) mg/dL Glucose 137 H (74-99) mg/dL Calcium (8.4-10.2) mg/dL Total Protein (6.3-8.2) g/dL Albumin (3.5-5.0) g/dL 05/19/24 Range/Units 07:02 WBC (3.8-10.6) k/uL Hgb (11.4-16.0) gm/dL MCHC (31.0-37.0) g/dL Plt Count (150-450) k/uL Neutrophils # (1.3-7.7) k/uL Lymphocytes # (1.0-4.8) k/uL Monocytes # (0-1.0) k/uL Sodium 133 L (137-145) mmol/L Potassium (3.5-5.1) mmol/L Carbon Dioxide 19 L (22-30) mmol/L BUN 29 H (7-17) mg/dL Creatinine 1.38 H (0.52-1.04) mg/dL Glucose 169 H (74-99) mg/dL Calcium 8.3 L (8.4-10.2) mg/dL Total Protein 5.3 L (6.3-8.2) g/dL Albumin 2.1 L (3.5-5.0) g/dL
[2024-05-19] MEDS: SODIUM CHLORIDE 0.9% 1,000 ML IV ONE (12:21)
[2024-05-19] MEDS: ACETAMINOPHEN IV (For NPO) 1,000 MG in EMPTY BAG 1 BAG IVPB SCH (12:21)
[2024-05-19] MEDS: METOCLOPRAMIDE 5 MG/ML 2 ML VIAL IVP SCH (12:22)
--- NOTE | 2024-05-19 12:50 | P.PN ---
Subjective Progress Note Date: 05/19/24 CHIEF COMPLAINT: Perforated diverticulitis HISTORY OF PRESENT ILLNESS: Postop day #1 status post exploratory laparotomy, diverting colostomy and small bowel resection. Patient does report abdominal pain. She reports nausea. No vomiting. She was hypotensive and received fluid bolus yesterday. Patient continues to marginal BP. Also having low urine output and urine is dark. VAUGHN drain 30 mL sanguinous output. NG tube with 100 mL output. Afebrile. WBC is up from 12.4-17.3 Hgb 10.4 platelets 390 sodium 133 potassium 3.8 creatinine up at 1.38 PHYSICAL EXAM: VITAL SIGNS: Reviewed. GENERAL: Well-developed in no acute distress. ABDOMEN: Soft. Nondistended. Incision site clean dry and intact. Bakari in place. Most distal wick saturated with blood. Ostomy on the left. No stool present. NEUROLOGIC: Alert and oriented. Cranial nerves II through XII grossly intact. Skin: Stage II sacral decubitus ulcer ASSESSMENT: 1. Perforated diverticulitis 2. Low urine output, acute kidney injury 3. Leukocytosis 4. Hypotension PLAN: -1 L fluid bolus ordered for decreased urine output -Continue NG tube for decompression -Keep patient n.p.o. -Continue IV fluids -Encourage patient to increase activity level -Encourage patient to use incentive spirometer -IV Tylenol added for pain -Continue antibiotics -Zinc oxide ordered for sacral decubitus ulcer -Continue offloading -Reglan ordered for nausea -DVT prophylaxis subcu heparin Physician Waiter/Waitress First [employer] note has been reviewed by physician. Signing provider agrees with the documented findings, assessment, and plan of care. Objective - Vital Signs Vital signs: Vital Signs Temp 96.6 F L 05/19/24 11:51 Pulse 71 05/19/24 11:51 Resp 18 05/19/24 11:51 BP 109/58 05/19/24 11:51 Pulse Ox 95 05/19/24 11:51 FiO2 Intake & Output 05/18/24 05/19/24 05/19/24 18:59 06:59 18:59 Intake Total 1050 1469.997 200 Output Total 510 320 Balance 540 1149.997 200 Weight 77 kg Intake: IV 850 Intake, IV Titration 200 1469.997 200 Amount Amiodarone 360 mg In 200 369.997 200 Dextrose 5% in Water 200 ml @ 1 MG/MIN 33.333 mls/ hr IV .Q6H [facility] Rx#: [id number] D5-0.45% NaCl with KCl 1000 20Meq/l 1,000 ml @ 125 mls/hr IV .Q8H [facility] Rx#: [id number] Piperacillin-Tazobactam 3 100 .375 gm In Sodium Chloride 0.9% 100 ml @ 25 mls/hr IVPB Q8HR [facility] Rx# :[id number] Oral 0 Output: Drainage 160 70 Right Abdomen 160 70 Urine 250 250 Estimated Blood Loss 100 Other: Voiding Method Indwelling Catheter Indwelling Catheter Indwelling Catheter - Labs CBC & Chem 7: 05/19/24 07:02 05/19/24 07:02 Labs: Abnormal Lab Results - Last 24 Hours (Table) 05/18/24 05/19/24 05/19/24 Range/Units 12:22 07:02 07:02 WBC 17.3 H (3.8-10.6) k/uL Hgb 10.4 L (11.4-16.0) gm/dL MCHC 30.3 L (31.0-37.0) g/dL Neutrophils # 15.2 H (1.3-7.7) k/uL Lymphocytes # 0.7 L (1.0-4.8) k/uL Monocytes # 1.2 H (0-1.0) k/uL Sodium 136 L 133 L (137-145) mmol/L Potassium 3.4 L (3.5-5.1) mmol/L Carbon Dioxide 19 L (22-30) mmol/L BUN 19 H 29 H (7-17) mg/dL Creatinine 1.38 H (0.52-1.04) mg/dL Glucose 137 H 169 H (74-99) mg/dL Calcium 8.3 L (8.4-10.2) mg/dL Total Protein 5.3 L (6.3-8.2) g/dL Albumin 2.1 L (3.5-5.0) g/dL
--- NOTE | 2024-05-19 15:18 | P.PN ---
Subjective Progress Note Date: 05/19/24 73-year-old female with past medical history significant for atrial fibrillation, AICD in place, ischemic cardiomyopathy with a EF 45%, coronary artery disease status post stenting August 2023, hypertension, hyperlipidemia who presented to ER with a complaint of defibrillator shock. Patient was disch arged yesterday on oral antibiotics Ceftin and Flagyl, when patient was admitted for acute diverticulitis with perforation, infectious disease and general surgery was consulted and patient was continued on medical management during hospitalization and eventually discharged after clearance from general surgery after patient symptoms improved. Patient reported that she had of defibrillator shock yesterday, had 1 more shock earlier today leading to fall. Patient reported that she has not had a bowel movement. Patient has not started her home medication. Patient also reported fever and chills, reported abdominal distention, reported abdominal pain is same. Patient denied any headache, sore throat, productive cough, shortness of breath, chest pain, palpitations, dysuria urgency frequency weakness or numbness of extremities. Vitals: Temperature 100.3, heart rate 118, respiratory rate 18, blood pressure 101/62, saturating 94% on room air. Labs: WBCs 13.4, trending down, hemoglobin 11.3, platelets 453, INR 1.1, creatinine 0.49, BUN 16, normal ALT AST alkaline phosphatase and bilirubin. 05/17--patient was seen and examined today. Complaining of abdominal pain, nausea. Patient CT abdomen pelvis overnight showed acute diverticulitis with perforation with worsening pneumoperitoneum, general surgery consulted and following, planning for OR tomorrow as patient received Plavix today. Remains on amiodarone drip per cardiology. Monitor with telemetry. N.p.o., IV fluids, hold Farxiga. 05/18/2024 Patient is currently n.p.o. scheduled to undergo surgical intervention secondary to diverticulitis with perforation with general surgery. Will await surgical report. 05/19/2024 Patient is seen in follow-up this morning status post exploratory laparotomy, diverting colostomy and small bowel resection. Patient ostomy with some blood noted with no bowel activity as of yet. Patient blood pressures are on the lower side and receiving a bolus and will follow-up with repeat labs. Patient with decreased urine output although patient has not been n.p.o. for over 24 hours. White count is elevated although patient remains afebrile and kidney function mildly elevated as well recommend gentle hydration and follow-up on repeat labs. Patient continues with an NG tube for decompression with minimal frothy output noted. Discussed with the patient about ambulating and increasing activity as soon as possible and recommend PT/OT therapy evaluation. Patient also to continue with frequent offloading and position changes as patient is noted to have a stage II sacral decubitus ulcer that was present on admission. REVIEW OF SYSTEMS: CONSTITUTIONAL: No fever or chills. Patient reports feeling lethargic CARDIOVASCULAR: No chest pain, palpitations or syncope. PULMONARY: No shortness of breath, no cough, sore throat. GASTROINTESTINAL: Reports of nausea, no vomiting, no diarrhea, reports continued abdominal pain. : No Dysuria, urgency, frequency. Extremities: No edema. NEUROLOGICAL: No headaches, no weakness, or numbness PHYSICAL EXAMINATION: GENERAL: The patient is A&O x3, lethargic although easily arousable, elderly appearing, ill-appearing, obese HEENT: EOMI, Sclerae anicteric, Moist Mucous membranes, NG tube noted Neck: Supple, Non tender, No JVD PULMONARY: Equal breath souds B/L, No wheezing, No crackles. CARDIOVASCULAR: S1, S2 present. No murmurs, rubs, or gallops. ABDOMEN: Tender, less distended. Tenderness and discomfort noted on palpation ostomy noted on the left with some serous drainage noted with no gas or stool noted, surgical incision has been reinforced with ABD pads and reinforcement gauze is dry and intact MUSCULOSKELETAL: No edema, No cyanosis. No clubbing. Normal ROM. Intact peripheral pulses. EXTREMITIES: No cyanosis, clubbing, or pedal edema. NEUROLOGICAL: CN 2-12 grossly intact. No FND Skin: No Rash, stage II sacral decubitus ulcer Assessment: Acute diverticulitis with perforation: Worsening pneumoperitoneum with sepsis, present on admission status post exploratory laparotomy, diverting colostomy and small bowel resection, postop day 1 Fevers, present on admission secondary to above, improving defibrillator shock: With history of CAD status post stent in August [address] Hypertension Hyperlipidemia Chronic systolic CHF, not in exacerbation, currently euvolemic A-fib with RVR, currently rate controlled Obesity with a BMI 31.0 Stage II sacral decubitus ulcer, present on admission GI prophylaxis DVT prophylaxis Full code Plan: Patient is currently n.p.o. and is status post exploratory laparotomy, diverting colostomy and small bowel resection Patient is noted to have a stage II sacral decubitus ulcer and recommend zinc barrier paste as well as frequent offloading and Optifoam to the area with position changes every 2 hours Follow-up on labs and replace electrolytes per protocol Continue n.p.o. diet until advance per surgery. Patient to continue with NG tube for decompression PT/OT therapy to evaluate Overall prognosis is guarded The impression and plan of care has been dictated by Lisy Jones, Nurse Practitioner as directed. Dr. Ashlie MD I have performed a history and examination and MDM of this patient, discussed the same with the dictator, and agree with the dictator's assessment and plan as written ,documented as a scribe. Based on total visit time, I have performed more than 50% of the visit. Objective - Vital Signs Vital signs: Vital Signs Temp 96.4 F L 05/19/24 08:20 Pulse 70 05/19/24 08:20 Resp 18 05/19/24 08:20 BP 110/55 05/19/24 08:20 Pulse Ox 94 L 05/19/24 08:20 FiO2 Intake & Output 05/18/24 05/19/24 05/19/24 18:59 06:59 18:59 Intake Total 1050 1469.997 Output Total 510 320 Balance 540 1149.997 Weight 77 kg Intake: IV 850 Intake, IV Titration 200 1469.997 Amount Amiodarone 360 mg In 200 369.997 Dextrose 5% in Water 200 ml @ 1 MG/MIN 33.333 mls/ hr IV .Q6H [facility] Rx#: [id number] D5-0.45% NaCl with KCl 1000 20Meq/l 1,000 ml @ 125 mls/hr IV .Q8H [facility] Rx#: [id number] Piperacillin-Tazobactam 3 100 .375 gm In Sodium Chloride 0.9% 100 ml @ 25 mls/hr IVPB Q8HR [facility] Rx# :[id number] Oral 0 Output: Drainage 160 70 Right Abdomen 160 70 Urine 250 250 Estimated Blood Loss 100 Other: Voiding Method Indwelling Catheter Indwelling Catheter - Labs CBC & Chem 7: 05/19/24 07:02 05/19/24 07:02 Labs: Abnormal Lab Results - Last 24 Hours (Table) 05/18/24 05/18/24 05/19/24 Range/Units 12:22 12:22 07:02 WBC 12.4 H 17.3 H (3.8-10.6) k/uL Hgb 11.3 L 10.4 L (11.4-16.0) gm/dL MCHC 30.8 L 30.3 L (31.0-37.0) g/dL Plt Count 461 H (150-450) k/uL Neutrophils # 10.9 H 15.2 H (1.3-7.7) k/uL Lymphocytes # 0.5 L 0.7 L (1.0-4.8) k/uL Monocytes # 1.2 H (0-1.0) k/uL Sodium 136 L (137-145) mmol/L Potassium 3.4 L (3.5-5.1) mmol/L Carbon Dioxide (22-30) mmol/L BUN 19 H (7-17) mg/dL Creatinine (0.52-1.04) mg/dL Glucose 137 H (74-99) mg/dL Calcium (8.4-10.2) mg/dL Total Protein (6.3-8.2) g/dL Albumin (3.5-5.0) g/dL 05/19/24 Range/Units 07:02 WBC (3.8-10.6) k/uL Hgb (11.4-16.0) gm/dL MCHC (31.0-37.0) g/dL Plt Count (150-450) k/uL Neutrophils # (1.3-7.7) k/uL Lymphocytes # (1.0-4.8) k/uL Monocytes # (0-1.0) k/uL Sodium 133 L (137-145) mmol/L Potassium (3.5-5.1) mmol/L Carbon Dioxide 19 L (22-30) mmol/L BUN 29 H (7-17) mg/dL Creatinine 1.38 H (0.52-1.04) mg/dL Glucose 169 H (74-99) mg/dL Calcium 8.3 L (8.4-10.2) mg/dL Total Protein 5.3 L (6.3-8.2) g/dL Albumin 2.1 L (3.5-5.0) g/dL
[2024-05-19] MEDS: ZINC OXIDE 20% OINT 28.4 GM TUBE TOPICAL SCH (17:30)
[2024-05-19] MEDS: ONDANSETRON 4 MG/2 ML VIAL IVP PRN (19:50)
[2024-05-20 07:13] LABS: African American GFR (CKD) 42 (>60 ml/min/1.73 sqM); Anion Gap 12 mmol/L; Blood Urea Nitrogen 37 mg/dL (7-17); Calcium 8.4 mg/dL (8.4-10.2); Carbon Dioxide 18 mmol/L (22-30); Chloride 101 mmol/L (98-107); Glucose 136 mg/dL (74-99); Non-African American GFR(CKD) 37 (>60 ml/min/1.73 sqM); Potassium 3.7 mmol/L (3.5-5.1); Sodium 131 mmol/L (137-145)
[2024-05-20 07:14] LABS: HCT 33.8 % (34.0-46.0); HGB 10.3 gm/dL (11.4-16.0); Hypochromasia Marked; MCH 25.4 pg (25.0-35.0); MCHC 30.4 g/dL (31.0-37.0); MCV 83.7 fL (80.0-100.0); Mean Platelet Volume 7.5; Platelet Count 317 k/uL (150-450); Poikilocytosis Slight; RBC 4.03 m/uL (3.80-5.40); WBC 17.4 k/uL (3.8-10.6)
[2024-05-20 08:22] LABS: Lymphocytes # (M) 1.22 k/uL (1.0-4.8); Monocytes # (M) 1.04 k/uL (0-1.0); Neutrophils # (M) 15.14 k/uL (1.3-7.7); Neutrophils % (M) 87 %; Nucleated Red Blood Cells 0 /100 WBC (0-0); Total Cells Counted 100
[2024-05-20 08:23] LABS: Anisocytosis (M) Present
--- NOTE | 2024-05-20 09:01 | P.PN ---
Subjective Progress Note Date: 05/19/24 Principal diagnosis: Reason for follow-up is perforated diverticulitis and peritonitis Patient is a 73-year-old female with a past medical history significant for hypertension hyperlipidemia [place] atrial fibrillation, patient was recently admitted at this facility and has been diagnosed with a diverticulitis with microperforation pending bed to the hospital with a defibrillator shock with repeat CT abdominal pelvis shows worsening pneumoperitoneum, patient was taken to the OR on 05/18/2024 status post small bowel resection because of adhesion that is and diverting colostomy operative report did not mention any abscess and no culture On today's evaluation that is 05/19/2024, Patient is afebrile this morning patient denies having any chest pain shortness of breath or cough, the patient is breathing comfortably and currently on room air, patient has been complaining of abdominal pain distention and did have some nausea and no vomiting no output in the colostomy. Patient white count is slightly up to 17.3, creatinine is 1.38 Objective - Vital Signs Vital signs: Vital Signs Temp 97.5 F L 05/19/24 15:32 Pulse 64 05/19/24 15:32 Resp 18 05/19/24 15:32 BP 92/58 05/19/24 15:32 Pulse Ox 94 L 05/19/24 15:32 FiO2 Intake & Output 05/18/24 05/19/24 05/19/24 18:59 06:59 18:59 Intake Total 1050 1469.997 200 Output Total 510 320 Balance 540 1149.997 200 Weight 77 kg Intake: IV 850 Intake, IV Titration 200 1469.997 200 Amount Amiodarone 360 mg In 200 369.997 200 Dextrose 5% in Water 200 ml @ 1 MG/MIN 33.333 mls/ hr IV .Q6H [facility] Rx#: [id number] D5-0.45% NaCl with KCl 1000 20Meq/l 1,000 ml @ 125 mls/hr IV .Q8H [facility] Rx#: [id number] Piperacillin-Tazobactam 3 100 .375 gm In Sodium Chloride 0.9% 100 ml @ 25 mls/hr IVPB Q8HR [facility] Rx# :[id number] Oral 0 Output: Drainage 160 70 Right Abdomen 160 70 Urine 250 250 Estimated Blood Loss 100 Other: Voiding Method Indwelling Catheter Indwelling Catheter Indwelling Catheter - Exam GENERAL DESCRIPTION: An elderly female lying in bed in no distress RESPIRATORY SYSTEM: Unlabored breathing , decreased breath sounds at bases HEART: S1 S2 regular rate and rhythm , ABDOMEN: Soft , mild tenderness EXTREMITIES: No edema feet - Labs CBC & Chem 7: 05/20/24 06:32 05/20/24 06:32 Labs: Abnormal Lab Results - Last 24 Hours (Table) 05/19/24 05/19/24 Range/Units 07:02 07:02 WBC 17.3 H (3.8-10.6) k/uL Hgb 10.4 L (11.4-16.0) gm/dL MCHC 30.3 L (31.0-37.0) g/dL Neutrophils # 15.2 H (1.3-7.7) k/uL Lymphocytes # 0.7 L (1.0-4.8) k/uL Monocytes # 1.2 H (0-1.0) k/uL Sodium 133 L (137-145) mmol/L Carbon Dioxide 19 L (22-30) mmol/L BUN 29 H (7-17) mg/dL Creatinine 1.38 H (0.52-1.04) mg/dL Glucose 169 H (74-99) mg/dL Calcium 8.3 L (8.4-10.2) mg/dL Total Protein 5.3 L (6.3-8.2) g/dL Albumin 2.1 L (3.5-5.0) g/dL Assessment and Plan (1) Intra-abdominal abscess Current Visit: Yes Status: Acute Code(s): K65.1 - PERITONEAL ABSCESS SNOMED Code(s): 70023766 (2) Peritonitis Current Visit: Yes Status: Acute Code(s): K65.9 - PERITONITIS, UNSPECIFIED SNOMED Code(s): 56306054 (3) Perforation of sigmoid colon due to diverticulitis Current Visit: No Status: Acute Code(s): K57.20 - DVTRCLI OF LG INT W PERFORATION AND ABSCESS W/O BLEEDING SNOMED Code(s): 1245709034831413 Plan: 1patient presented to hospital with sepsis in this patient who did have fever tachycardia elevated white count source is complicated diverticulitis now with evidence of pneumoperitoneum and worsening inflammatory changes will need to cover for the enteric gram-negative both aerobes and anaerobes 2-patient is status post laparotomy small bowel resection and diverticular ostomy operative report did not mention any abscess and no culture 3-patient to continue Zosyn 3.375 g every 8 hours noticed to have worsening of the white 20 to monitor closely Dictation was produced using [employer] dictation software. please excuse any grammatical, word or spelling errors. Time with Patient: Less than 30
[2024-05-20] MEDS: ANIDULAFUNGIN 200 MG in SODIUM CHLORIDE 0.9% 200 ML IVPB ONE (10:08)
[2024-05-20] MEDS: SODIUM CHLORIDE 0.9% 1,000 ML IV ONE (10:09)
--- NOTE | 2024-05-20 11:01 | P.PN ---
Subjective HISTORY OF PRESENT ILLNESS: This is a 73-year-old female with a past medical history significant for diverticulitis, coronary artery disease, ischemic cardiomyopathy, hypertension, and hyperlipidemia. Patient follows in the office with Dr. Lopez. We have been asked to see the patient in consultation for defibrillator discharge. Patient examined at the bedside in the emergency room. Patient was admitted last week to the hospital secondary to diverticulitis with microperforation. Patient was treated conservatively and was discharged home on antibiotics. The patient reported back to the hospital with a chief complaint of her ICD firing. She continues to report SOB. She denies chest pain or pressure. DIAGNOSTICS: - EKG reveals paced rhythm with PVCs - Chest xray negative for acute process - Laboratory data: WBC 16.9. Hemoglobin 10.9. Platelet count 425. Sodium 135. Potassium 3.6. BUN 16. Creatinine 0.63. Troponin negative x 3 - Current home cardiac medications include aspirin 81 mg at night, Plavix 75 mg at night, Jardiance 10 mg daily, metoprolol succinate 25 mg daily, spironolactone 25 mg daily, lisinopril 20 mg twice a day - Most recent echocardiogram obtained in April 2024 revealed ejection fraction 40 to 45%, global hypokinesis, trace aortic regurgitation, trace tricuspid regurgitation, mild mitral regurgitation - Cardiac catheterization history: August 2023 with stenting of the proximal LAD 05/19/2024 Patient is status post exploratory laparotomy, small bowel resection, and diverting colostomy. Patient denies chest pain or pressure. Denies shortness of breath. Telemetry reveals paced rhythm. Patient remains NPO. 05/20/2024 Patient examined this morning at the bedside. Patient denies chest pain or pressure. She denies shortness of breath. She remains NPO. NG tube remains in place. Telemetry reveals atrial fibrillation/paced rhythm. Creatinine today 1.41. PHYSICAL EXAM: VITAL SIGNS: Reviewed. GENERAL: Well-developed in no acute distress. HEENT: Head is normocephalic. Pupils are equal, round. Sclerae anicteric. Mucous membranes of the mouth are moist. Neck supple. No JVD or thyromegaly LUNGS: Respirations even and unlabored. Lungs essentially clear to auscultation bilaterally. HEART: Irregular rate and rhythm. S1 and S2 heard. ABDOMEN: Soft. Tenderness with palpation. EXTREMITIES: Normal range of motion. No clubbing or cyanosis. Peripheral pulses intact. No lower extremity edema NEUROLOGIC: Awake and alert. Oriented x 3. ASSESSMENT: New onset atrial fibrillation, captured on ICD interrogation Inappropriate ICD discharge x 2, no VT/VF on ICD interrogation Diverticulitis with pneumoperitoneum status post exploratory laparotomy, diverting colostomy and small bowel resection Acute kidney injury Recent hospitalization for acute diverticulitis with microperforation Coronary artery disease with previous PCI, most recently to proximal LAD in August 2023 Ischemic cardiomyopathy 30% with recent ICD implantation, improved to 4045% Hypertension Hyperlipidemia PLAN: ICD was interrogated. Patient was shocked twice. However, no VT/VF was noted. Patient was in AFIB at that time meaning ICD inappropriately discharged. However patient does not have a history of atrial fibrillation. Patient will require anticoagulation when cleared by general surgery Patient is NPO and can not take any oral medications. Will continue with IV amiodarone infusion at 1 mg/min until patient is able to take oral medications Begin beta-sophie when patient able to take oral medications Further recommendations pending patient course Nurse practitioner note has been reviewed by physician. Signing provider agrees with the documented findings, assessment, and plan of care documented by GENERAL CAR [employer]ARD SUPERVISOR as a scribe. Objective - Vital Signs Vital signs: Vital Signs Temp 97.6 F 05/20/24 08:00 Pulse 65 05/20/24 08:00 Resp 18 05/20/24 08:00 BP 128/57 05/20/24 08:00 Pulse Ox 95 05/20/24 08:00 FiO2 Intake & Output 05/19/24 05/20/24 05/20/24 18:59 06:59 18:59 Intake Total 400 384.440 Output Total 380 480 Balance 20 -95.560 Weight 76.5 kg Intake: Intake, IV Titration 400 384.440 Amount Amiodarone 360 mg In 400 384.440 Dextrose 5% in Water 200 ml @ 1 MG/MIN 33.333 mls/ hr IV .[facility]H [facility] Rx#: [id number] Output: Gastric Drainage 175 200 Drainage 30 5 Right Abdomen 30 5 Urine 175 275 Other: Voiding Method Indwelling Catheter Indwelling Catheter - Labs CBC & Chem 7: 05/20/24 06:32 05/20/24 06:32 Labs: Abnormal Lab Results - Last 24 Hours (Table) 05/20/24 05/20/24 Range/Units 06:32 06:32 WBC 17.4 H (3.8-10.6) k/uL Hgb 10.3 L (11.4-16.0) gm/dL Hct 33.8 L (34.0-46.0) % MCHC 30.4 L (31.0-37.0) g/dL Neutrophils # (Manual) 15.14 H (1.3-7.7) k/uL Monocytes # (Manual) 1.04 H (0-1.0) k/uL Sodium 131 L (137-145) mmol/L Carbon Dioxide 18 L (22-30) mmol/L BUN 37 H (7-17) mg/dL Creatinine 1.41 H (0.52-1.04) mg/dL Glucose 136 H (74-99) mg/dL
[2024-05-20] MEDS ORDERED: HEPARIN SODIUM 1,000 UN/ML (10ML VL) IV PRN (11:34)
--- NOTE | 2024-05-20 11:47 | P.PN ---
Subjective Progress Note Date: 05/20/24 CHIEF COMPLAINT: Perforated diverticulitis HISTORY OF PRESENT ILLNESS: Postop day #2 status post exploratory laparotomy, diverting colostomy and small bowel resection. Patient's pain is controlled. No output from ostomy. Has NG tube in place with about 200 mL output. VAUGHN drain with 35 mL serosanguineous output. Patient continued to have low blood pressure. Urine remains dark. And urine output remains on the lower side. Afebrile. WBC 17.4 Hgb 10.3 platelets 317 sodium 131 potassium 3.7 creatinine up at 1.41 Patient seen and examined with Dr. Valles PHYSICAL EXAM: VITAL SIGNS: Reviewed. GENERAL: Well-developed in no acute distress. ABDOMEN: Soft. Nondistended. Incision site clean dry and intact. Bakari in place. Most distal wick saturated with blood. Ostomy, No stool present. Serosanguineous fluid present in the colostomy bag NEUROLOGIC: Alert and oriented. Cranial nerves II through XII grossly intact. Skin: Stage II sacral decubitus ulcer ASSESSMENT: 1. Perforated diverticulitis 2. Low urine output, acute kidney injury 3. Leukocytosis 4. Hypotension PLAN: -Another 1 L fluid bolus ordered -Continue NG tube for decompression -Keep patient n.p.o. -Continue IV fluids -Encourage patient to increase activity level -Encourage patient to use incentive spirometer -IV Tylenol reordered for pain -Continue antibiotics -Continue Zinc oxide for sacral decubitus ulcer -Continue offloading -Surgical dressing and bakari to be changed today -DVT prophylaxis subcu heparin Physician Ldr Rn note has been reviewed by physician. Signing provider agrees with the documented findings, assessment, and plan of care. Objective - Vital Signs Vital signs: Vital Signs Temp 97.6 F 05/20/24 08:00 Pulse 65 05/20/24 08:00 Resp 18 05/20/24 08:00 BP 128/57 05/20/24 08:00 Pulse Ox 95 05/20/24 08:00 FiO2 Intake & Output 05/19/24 05/20/24 05/20/24 18:59 06:59 18:59 Intake Total 400 384.440 200 Output Total 380 480 Balance 20 -95.560 200 Weight 76.5 kg Intake: Intake, IV Titration 400 384.440 200 Amount Amiodarone 360 mg In 400 384.440 200 Dextrose 5% in Water 200 ml @ 1 MG/MIN 33.333 mls/ hr IV .Q6H [facility] Rx#: [id number] Output: Gastric Drainage 175 200 Drainage 30 5 Right Abdomen 30 5 Urine 175 275 Other: Voiding Method Indwelling Catheter Indwelling Catheter Indwelling Catheter - Labs CBC & Chem 7: 05/20/24 06:32 05/20/24 06:32 Labs: Abnormal Lab Results - Last 24 Hours (Table) 05/20/24 05/20/24 Range/Units 06:32 06:32 WBC 17.4 H (3.8-10.6) k/uL Hgb 10.3 L (11.4-16.0) gm/dL Hct 33.8 L (34.0-46.0) % MCHC 30.4 L (31.0-37.0) g/dL Neutrophils # (Manual) 15.14 H (1.3-7.7) k/uL Monocytes # (Manual) 1.04 H (0-1.0) k/uL Sodium 131 L (137-145) mmol/L Carbon Dioxide 18 L (22-30) mmol/L BUN 37 H (7-17) mg/dL Creatinine 1.41 H (0.52-1.04) mg/dL Glucose 136 H (74-99) mg/dL
[2024-05-20] MEDS: ACETAMINOPHEN IV (For NPO) 1,000 MG in EMPTY BAG 1 BAG IVPB SCH (12:25)
[2024-05-20] MEDS: HEPARIN SODIUM 1,000 UN/ML (10ML VL) IV ONE (12:27)
[2024-05-20] MEDS: HEPARIN SOD,PORK IN 0.45% NACL 25,000 UNIT in 0.45% NACL 1 250ML.BAG IV SCH (12:35)
[2024-05-20 12:39] LABS: Basophils # (A) 0.1 k/uL (0-0.2); Basophils % (A) 0 %; Eosinophils % (A) 0 %; HCT 33.5 % (34.0-46.0); HGB 10.2 gm/dL (11.4-16.0); Hypochromasia Marked; Lymphocytes # (A) 0.6 k/uL (1.0-4.8); Lymphocytes % (A) 4 %; MCH 25.5 pg (25.0-35.0); MCHC 30.5 g/dL (31.0-37.0); MCV 83.5 fL (80.0-100.0); Mean Platelet Volume 7.5; Monocytes # (A) 1.1 k/uL (0-1.0); Monocytes % (A) 6 %; Neutrophils # (A) 15.2 k/uL (1.3-7.7); Neutrophils % (A) 89 %; Platelet Count 326 k/uL (150-450); Poikilocytosis Slight; RBC 4.01 m/uL (3.80-5.40); RDW 15.2 % (11.5-15.5); WBC 17.2 k/uL (3.8-10.6)
[2024-05-20 12:52] LABS: INR 1.3 (<1.2); Partial Thromboplastin Time 36.4 sec (22.0-30.0); Prothrombin Time 13.8 sec (10.0-12.5)
--- NOTE | 2024-05-20 15:01 | P.PN ---
Subjective Progress Note Date: 05/20/24 Principal diagnosis: Reason for follow-up is perforated diverticulitis and peritonitis Patient is a 73-year-old female with a past medical history significant for hypertension hyperlipidemia [place] atrial fibrillation, patient was recently admitted at this facility and has been diagnosed with a diverticulitis with microperforation pending bed to the hospital with a defibrillator shock with repeat CT abdominal pelvis shows worsening pneumoperitoneum, patient was taken to the OR on 05/18/2024 status post small bowel resection because of adhesion that is and diverting colostomy operative report did not mention any abscess and no culture On today's evaluation that is 05/20/2024,the patient denies any fever or any chills, patient is breathing comfortably on room air, the patient denies chest pain shortness of breath and no significant cough, patient still complaining of abdominal pain no worsening though stopped controlled with the pain medication nausea but no vomiting and no output in colostomy. The patient white count 17.2 creatinine is 1.41 Objective - Vital Signs Vital signs: Vital Signs Temp 97.9 F 05/20/24 12:00 Pulse 80 05/20/24 12:00 Resp 16 05/20/24 12:00 BP 114/57 05/20/24 12:00 Pulse Ox 97 05/20/24 12:00 FiO2 Intake & Output 05/19/24 05/20/24 05/20/24 18:59 06:59 18:59 Intake Total 400 384.440 200 Output Total 380 480 Balance 20 -95.560 200 Weight 76.5 kg Intake: Intake, IV Titration 400 384.440 200 Amount Amiodarone 360 mg In 400 384.440 200 Dextrose 5% in Water 200 ml @ 1 MG/MIN 33.333 mls/ hr IV .Q6H [facility] Rx#: [id number] Output: Gastric Drainage 175 200 Drainage 30 5 Right Abdomen 30 5 Urine 175 275 Other: Voiding Method Indwelling Catheter Indwelling Catheter Indwelling Catheter - Exam GENERAL DESCRIPTION: An elderly female lying in bed in no distress RESPIRATORY SYSTEM: Unlabored breathing , decreased breath sounds at bases HEART: S1 S2 regular rate and rhythm , ABDOMEN: Soft , mild tenderness EXTREMITIES: No edema feet - Labs CBC & Chem 7: 05/20/24 12:13 05/20/24 06:32 Labs: Abnormal Lab Results - Last 24 Hours (Table) 05/20/24 05/20/24 05/20/24 Range/Units 06:32 06:32 12:13 WBC 17.4 H 17.2 H (3.8-10.6) k/uL Hgb 10.3 L 10.2 L (11.4-16.0) gm/dL Hct 33.8 L 33.5 L (34.0-46.0) % MCHC 30.4 L 30.5 L (31.0-37.0) g/dL Neutrophils # (Manual) 15.14 H (1.3-7.7) k/uL Monocytes # (Manual) 1.04 H (0-1.0) k/uL PT (10.0-12.5) sec INR (<1.2) APTT (22.0-30.0) sec Sodium 131 L (137-145) mmol/L Carbon Dioxide 18 L (22-30) mmol/L BUN 37 H (7-17) mg/dL Creatinine 1.41 H (0.52-1.04) mg/dL Glucose 136 H (74-99) mg/dL 05/20/24 Range/Units 12:13 WBC (3.8-10.6) k/uL Hgb (11.4-16.0) gm/dL Hct (34.0-46.0) % MCHC (31.0-37.0) g/dL Neutrophils # (Manual) (1.3-7.7) k/uL Monocytes # (Manual) (0-1.0) k/uL PT 13.8 H (10.0-12.5) sec INR 1.3 H (<1.2) APTT 36.4 H (22.0-30.0) sec Sodium (137-145) mmol/L Carbon Dioxide (22-30) mmol/L BUN (7-17) mg/dL Creatinine (0.52-1.04) mg/dL Glucose (74-99) mg/dL Assessment and Plan (1) Intra-abdominal abscess Current Visit: Yes Status: Acute Code(s): K65.1 - PERITONEAL ABSCESS SN OMED Code(s): 95592406 (2) Peritonitis Current Visit: Yes Status: Acute Code(s): K65.9 - PERITONITIS, UNSPECIFIED SNOMED Code(s): 95544222 (3) Perforation of sigmoid colon due to diverticulitis Current Visit: No Status: Acute Code(s): K57.20 - DVTRCLI OF LG INT W PER FORATION AND ABSCESS W/O BLEEDING SNOMED Code(s): 6665637080101855 Plan: 1patient presented to hospital with sepsis in this patient who did have fever tachycardia elevated white count source is complicated diverticulitis now with evidence of pneumoperitoneum and worsening inflammatory changes will need to cover for the enteric gram-negative both aerobes and anaerobes 2-patient is status post laparotomy small bowel resection and diverticular ostomy operative report did not mention any abscess and no culture 3-patient did have persistent elevated white count to continue Zosyn 3.375 g every 8 hours however I did add Eraxis to cover for the yeast and will repeat a CBC with a.m. lab Dictation was produced using [employer] dictation software. please excuse any grammatical, word or spelling errors. Time with Patient: Less than 30
[2024-05-20] MEDS: D5-0.9% NACL WITH KCL 20 MEQ/L 1,000 ML IV SCH (18:06)
[2024-05-21 04:39] LABS: Basophils % (A) 0 %; Eosinophils # (A) 0.1 k/uL (0-0.7); Eosinophils % (A) 1 %; HCT 31.7 % (34.0-46.0); HGB 9.7 gm/dL (11.4-16.0); Hypochromasia Marked; Lymphocytes # (A) 0.6 k/uL (1.0-4.8); Lymphocytes % (A) 4 %; MCH 25.3 pg (25.0-35.0); MCHC 30.8 g/dL (31.0-37.0); MCV 82.2 fL (80.0-100.0); Mean Platelet Volume 7.7; Monocytes # (A) 1.6 k/uL (0-1.0); Monocytes % (A) 11 %; Neutrophils % (A) 83 %; Platelet Count 340 k/uL (150-450); Poikilocytosis Slight; RBC 3.85 m/uL (3.80-5.40); RDW 15.2 % (11.5-15.5); WBC 14.5 k/uL (3.8-10.6)
[2024-05-21 05:05] LABS: INR 1.5 (<1.2); Partial Thromboplastin Time 84.5 sec (22.0-30.0); Prothrombin Time 15.7 sec (10.0-12.5)
[2024-05-21 05:28] LABS: Crenated RBC Present
[2024-05-21] MEDS: ANIDULAFUNGIN 100 MG in SODIUM CHLORIDE 0.9% 100 ML IVPB SCH (08:26)
[2024-05-21 09:04] LABS: ALT 11 U/L (4-34); AST 31 U/L (14-36); African American GFR (CKD) 73 (>60 ml/min/1.73 sqM); Albumin 1.8 g/dL (3.5-5.0); Alkaline Phosphatase 95 U/L (38-126); Anion Gap 8 mmol/L; Blood Urea Nitrogen 32 mg/dL (7-17); Carbon Dioxide 15 mmol/L (22-30); Chloride 107 mmol/L (98-107); Glucose 97 mg/dL (74-99); Non-African American GFR(CKD) 63 (>60 ml/min/1.73 sqM); Potassium 4.3 mmol/L (3.5-5.1); Sodium 130 mmol/L (137-145); Total Bilirubin 0.7 mg/dL (0.2-1.3); Total Protein 4.9 g/dL (6.3-8.2)
--- NOTE | 2024-05-21 09:35 | P.PN ---
Subjective Progress Note Date: 05/20/24 73-year-old female with past medical history significant for atrial fibrillation, AICD in place, ischemic cardiomyopathy with a EF 45%, coronary artery disease status post stenting August 2023, hypertension, hyperlipidemia who presented to ER with a complaint of defibrillator shock. Patient was disch arged yesterday on oral antibiotics Ceftin and Flagyl, when patient was admitted for acute diverticulitis with perforation, infectious disease and general surgery was consulted and patient was continued on medical management during hospitalization and eventually discharged after clearance from general surgery after patient symptoms improved. Patient reported that she had of defibrillator shock yesterday, had 1 more shock earlier today leading to fall. Patient reported that she has not had a bowel movement. Patient has not started her home medication. Patient also reported fever and chills, reported abdominal distention, reported abdominal pain is same. Patient denied any headache, sore throat, productive cough, shortness of breath, chest pain, palpitations, dysuria urgency frequency weakness or numbness of extremities. Vitals: Temperature 100.3, heart rate 118, respiratory rate 18, blood pressure 101/62, saturating 94% on room air. Labs: WBCs 13.4, trending down, hemoglobin 11.3, platelets 453, INR 1.1, creatinine 0.49, BUN 16, normal ALT AST alkaline phosphatase and bilirubin. 05/17--patient was seen and examined today. Complaining of abdominal pain, nausea. Patient CT abdomen pelvis overnight showed acute diverticulitis with perforation with worsening pneumoperitoneum, general surgery consulted and following, planning for OR tomorrow as patient received Plavix today. Remains on amiodarone drip per cardiology. Monitor with telemetry. N.p.o., IV fluids, hold Farxiga. 05/18/2024 Patient is currently n.p.o. scheduled to undergo surgical intervention secondary to diverticulitis with perforation with general surgery. Will await surgical report. 05/19/2024 Patient is seen in follow-up this morning status post exploratory laparotomy, diverting colostomy and small bowel resection. Patient ostomy with some blood noted with no bowel activity as of yet. Patient blood pressures are on the lower side and receiving a bolus and will follow-up with repeat labs. Patient with decreased urine output although patient has not been n.p.o. for over 24 hours. White count is elevated although patient remains afebrile and kidney function mildly elevated as well recommend gentle hydration and follow-up on repeat labs. Patient continues with an NG tube for decompression with minimal frothy output noted. Discussed with the patient about ambulating and increasing activity as soon as possible and recommend PT/OT therapy evaluation. Patient also to continue with frequent offloading and position changes as patient is noted to have a stage II sacral decubitus ulcer that was present on admission. 05/20/2024 Patient is seen and evaluated in follow-up this morning with daughter at the bedside having some serous drainage output noted in ostomy. No bowel movement as of yet although patient did report she thought she noticed some air in the ostomy. Patient remains n.p.o. and continues with NG tube for decompression with multiple consultations following. Patient will continue on IV amiodarone and okay to resume IV heparin until tolerating oral intake per surgery to resume. Patient has not been up and walking and recommend PT/OT therapy evaluation and sitting up in the chair more often. Patient is extremely uncomfortable with the NG tube although understands its importance. Continue with mouth swabs frequently to the oral mucosa as it is extremely dry. Kidney function slightly worsened and sodium on the lower side recommend transitioning IV fluids with a decreased rate of D5 and normal saline as opposed to half- normal saline and recommend repeat labs. Urine output is fair and continues with indwelling Duarte catheter. Patient reporting some vaginal discomfort near the catheter and discussed with nursing staff about repositioning and continued Duarte catheter care and management. Blood pressures soft overall stable and will continue current regimen. Cardiology is following as well. REVIEW OF SYSTEMS: CONSTITUTIONAL: No fever or chills. Patient reports feeling lethargic CARDIOVASCULAR: No chest pain, palpitations or syncope. PULMONARY: No shortness of breath, no cough, sore throat. GASTROINTESTINAL: Reports of nausea, no vomiting, no diarrhea, reports continued abdominal tenderness. : No Dysuria, urgency, frequency. Extremities: No edema. NEUROLOGICAL: No headaches, no weakness, or numbness PHYSICAL EXAMINATION: GENERAL: The patient is A&O x3, much more awake today, elderly appearing, ill- appearing, obese HEENT: EOMI, Sclerae anicteric, Moist Mucous membranes, NG tube noted right nare Neck: Supple, Non tender, No JVD PULMONARY: Equal breath souds B/L, No wheezing, No crackles. CARDIOVASCULAR: S1, S2 present. No murmurs, rubs, or gallops. ABDOMEN: Tender, less distended. Tenderness and discomfort noted on palpation ostomy noted on the left with some serous drainage noted with no gas or stool noted, surgical incision has been reinforced with ABD pads and reinforcement gauze is dry and intact MUSCULOSKELETAL: No edema, No cyanosis. No clubbing. Normal ROM. Intact peripheral pulses. EXTREMITIES: No cyanosis, clubbing, or pedal edema. NEUROLOGICAL: CN 2-12 grossly intact. No FND Skin: No Rash, stage II sacral decubitus ulcer Assessment: Acute diverticulitis with perforation: Worsening pneumoperitoneum with sepsis, present on admission status post exploratory laparotomy, diverting colostomy and small bowel resection, postop day 2 Leukocytosis, secondary to above, trending down Fevers, present on admission secondary to above, resolved defibrillator shock: With history of CAD status post stent in August [address] Hypertension, currently normotensive Hyperlipidemia Chronic systolic CHF, not in exacerbation, currently euvolemic A-fib with RVR, currently rate controlled Obesity with a BMI 31.0 Stage II sacral decubitus ulcer, present on admission GI prophylaxis DVT prophylaxis Full code Plan: Patient is currently n.p.o. and is status post exploratory laparotomy, diverting colostomy and small bowel resection Patient is noted to have a stage II sacral decubitus ulcer and recommend zinc barrier paste as well as frequent offloading and Optifoam to the area with position changes every 2 hours Follow-up on labs and replace electrolytes per protocol Patient continued on gentle hydration of D5 half-normal saline although sodium continues to trend down and kidney functions worsening recommend D5 due to n.p.o. status and normal saline at a decreased rate and follow-up on repeat labs. Continue n.p.o. diet until advance per surgery. Patient to continue with NG tube for decompression PT/OT therapy to evaluate as patient is significantly weak and not getting up out of bed at all. Encouraged incentive spirometer use at least 10 times every hour while awake. Patient currently maintained on room air and denies shortness of breath. Overall prognosis is guarded The impression and plan of care has been dictated by Lisy Jones, Nurse Practitioner as directed. Dr. Ashlie MD I have performed a history and examination and MDM of this patient, discussed the same with the dictator, and agree with the dictator's assessment and plan as written ,documented as a scribe. Based on total visit time, I have performed more than 50% of the visit. Objective - Vital Signs Vital signs: Vital Signs Temp 98.2 F 05/20/24 03:23 Pulse 62 05/20/24 03:23 Resp 20 05/20/24 03:23 BP 96/62 05/20/24 03:23 Pulse Ox 96 05/20/24 03:23 FiO2 Intake & Output 05/19/24 05/20/24 05/20/24 18:59 06:59 18:59 Intake Total 400 384.440 Output Total 380 480 Balance 20 -95.560 Weight 76.5 kg Intake: Intake, IV Titration 400 384.440 Amount Amiodarone 360 mg In 400 384.440 Dextrose 5% in Water 200 ml @ 1 MG/MIN 33.333 mls/ hr IV .Q6H [facility] Rx#: [id number] Output: Gastric Drainage 175 200 Drainage 30 5 Right Abdomen 30 5 Urine 175 275 Other: Voiding Method Indwelling Catheter Indwelling Catheter - Labs CBC & Chem 7: 05/21/24 04:21 05/21/24 07:17 Labs: Abnormal Lab Results - Last 24 Hours (Table) 05/20/24 05/20/24 Range/Units 06:32 06:32 WBC 17.4 H (3.8-10.6) k/uL Hgb 10.3 L (11.4-16.0) gm/dL Hct 33.8 L (34.0-46.0) % MCHC 30.4 L (31.0-37.0) g/dL Neutrophils # (Manual) 15.14 H (1.3-7.7) k/uL Monocytes # (Manual) 1.04 H (0-1.0) k/uL Sodium 131 L (137-145) mmol/L Carbon Dioxide 18 L (22-30) mmol/L BUN 37 H (7-17) mg/dL Creatinine 1.41 H (0.52-1.04) mg/dL Glucose 136 H (74-99) mg/dL
--- NOTE | 2024-05-21 13:32 | P.PN ---
Subjective Progress Note Date: 05/21/24 CHIEF COMPLAINT: Diverticulitis HISTORY OF PRESENT ILLNESS: The patient is a 73-year-old female with perforated diverticulitis status post colostomy. She has moderate output of her ostomy with stool and flatus. She has a nasogastric tube. ROS: No reports of nausea and vomiting. No fevers or chills. No new chest pain. No productive sputum PHYSICAL EXAM: VITAL SIGNS: Reviewed CONSTITUTIONAL: Well developed and in no acute distress. EYES: Conjuctivae without sclera icterus. Extraocular movements grossly intact. HEAD, EARS, NOSE, THROAT: Moist buccal mucosa. Head is atraumatic, normoceph alic. Hears conversational speech. No nasal drainage. RESPIRATORY: Non-labored respirations and equal bilateral excursions. CARDIOVASCULAR: Palpable 2+ radial pulses. ABDOMEN: Midline incision intact. Stool and flatus and left lower quadrant ostomy. Patent and functioning. MUSCULOSKELETAL: No gross deformity of the lower extremities noted. No clubbing. No cyanosis. SKIN: Good skin turgor. Well perfused. NEUROLOGIC: Cranial nerves II through XII grossly intact. No focal or lateralizing signs. PSYCH: Appropriate affect. Alert and oriented to person, place and time. CLINICAL LABS: Reviewed. WBC trending down from 17,000 to over 14,000. Presence of leukocytosis improving. ASSESSMENT: 1. Perforated diverticulitis 2. Leukocytosis PLAN: 1. She is now having function of her ostomy and I have discontinued her nasogastric tube. 2. She may start ice chips and popsicles with slow advancement of her diet. 3. I will order CBC to follow her leukocytosis. Objective - Vital Signs Vital signs: Vital Signs Temp 97.8 F 05/21/24 11:49 Pulse 68 05/21/24 11:49 Resp 20 05/21/24 11:49 BP 144/79 05/21/24 11:49 Pulse Ox 97 05/21/24 11:49 FiO2 Intake & Output 05/20/24 05/21/24 05/21/24 18:59 06:59 18:59 Intake Total 400 485.542 276.325 Output Total 425 1010 750 Balance -25 -524.458 -473.675 Weight 76.5 kg Intake: IV 40 Invasive Line 7 20 Invasive Line 8 10 Invasive Line 9 10 Intake, IV Titration 400 485.542 236.325 Amount Amiodarone 360 mg In 400 365.552 200 Dextrose 5% in Water 200 ml @ 1 MG/MIN 33.333 mls/ hr IV .Q6H [facility] Rx#: [id number] Heparin Sod,Pork in 0.45% 119.990 36.325 NaCl 25,000 unit In 0.45 % NaCl 1 250ml.bag @ 12 UNITS/KG/HR 9.18 mls/hr IV .Q24H [facility] Rx#: [id number] Oral 0 Output: Gastric Drainage 400 Drainage 10 Right Abdomen 10 Urine 425 600 400 Stool 350 Other: Voiding Method Indwelling Catheter Indwelling Catheter Indwelling Catheter - Labs CBC & Chem 7: 05/21/24 04:21 05/21/24 07:17 Labs: Abnormal Lab Results - Last 24 Hours (Table) 05/20/24 05/20/24 05/21/24 Range/Units 12:13 18:27 04:21 WBC 14.5 H (3.8-10.6) k/uL Hgb 9.7 L (11.4-16.0) gm/dL Hct 31.7 L (34.0-46.0) % MCHC 30.8 L (31.0-37.0) g/dL Neutrophils # 15.2 H 12.0 H (1.3-7.7) k/uL Lymphocytes # 0.6 L 0.6 L (1.0-4.8) k/uL Monocytes # 1.1 H 1.6 H (0-1.0) k/uL PT (10.0-12.5) sec INR (<1.2) APTT 110.8 H* (22.0-30.0) sec Sodium (137-145) mmol/L Carbon Dioxide (22-30) mmol/L BUN (7-17) mg/dL Calcium (8.4-10.2) mg/dL Total Protein (6.3-8.2) g/dL Albumin (3.5-5.0) g/dL 05/21/24 05/21/24 05/21/24 Range/Units 04:21 07:17 12:01 WBC (3.8-10.6) k/uL Hgb (11.4-16.0) gm/dL Hct (34.0-46.0) % MCHC (31.0-37.0) g/dL Neutrophils # (1.3-7.7) k/uL Lymphocytes # (1.0-4.8) k/uL Monocytes # (0-1.0) k/uL PT 15.7 H (10.0-12.5) sec INR 1.5 H (<1.2) APTT 84.5 H 67.8 H (22.0-30.0) sec Sodium 130 L (137-145) mmol/L Carbon Dioxide 15 L (22-30) mmol/L BUN 32 H (7-17) mg/dL Calcium 8.0 L (8.4-10.2) mg/dL Total Protein 4.9 L (6.3-8.2) g/dL Albumin 1.8 L (3.5-5.0) g/dL
--- NOTE | 2024-05-21 14:59 | P.PN ---
Subjective Progress Note Date: 05/21/24 Principal diagnosis: Reason for follow-up is perforated diverticulitis and peritonitis Patient is a 73-year-old female with a past medical history significant for hypertension hyperlipidemia [place] atrial fibrillation, patient was recently admitted at this facility and has been diagnosed with a diverticulitis with microperforation pending bed to the hospital with a defibrillator shock with repeat CT abdominal pelvis shows worsening pneumoperitoneum, patient was taken to the OR on 05/18/2024 status post small bowel resection because of adhesion that is and diverting colostomy operative report did not mention any abscess and no culture On today's evaluation that is 05/21/2024,the patient remains to be afebrile, patient is on room air not requiring supplemental oxygen and denies any shortness of breath no chest pain or cough.Patient did have the NG some nausea but no vomiting; no abdominal pain uncontrolled with the pain medication no output in the colostomy. The patient white count is down to 14.5 creatinine 0.90 Objective - Vital Signs Vital signs: Vital Signs Temp 97.8 F 05/21/24 11:49 Pulse 68 05/21/24 11:49 Resp 20 05/21/24 11:49 BP 144/79 05/21/24 11:49 Pulse Ox 97 05/21/24 11:49 FiO2 Intake & Output 05/20/24 05/21/24 05/21/24 18:59 06:59 18:59 Intake Total 400 485.542 20 Output Total 425 1010 750 Balance -25 -524.458 -730 Weight 76.5 kg Intake: IV 20 Invasive Line 7 10 Invasive Line 9 10 Intake, IV Titration 400 485.542 Amount Amiodarone 360 mg In 400 365.552 Dextrose 5% in Water 200 ml @ 1 MG/MIN 33.333 mls/ hr IV .Q6H [facility] Rx#: [id number] Heparin Sod,Pork in 0.45% 119.990 NaCl 25,000 unit In 0.45 % NaCl 1 250ml.bag @ 12 UNITS/KG/HR 9.18 mls/hr IV .Q24H [facility] Rx#: [id number] Oral 0 Output: Gastric Drainage 400 Drainage 10 Right Abdomen 10 Urine 425 600 400 Stool 350 Other: Voiding Method Indwelling Catheter Indwelling Catheter Indwelling Catheter - Exam GENERAL DESCRIPTION: An elderly female lying in bed in no distress RESPIRATORY SYSTEM: Unlabored breathing , decreased breath sounds at bases HEART: S1 S2 regular rate and rhythm , ABDOMEN: Soft , mild tenderness EXTREMITIES: No edema feet - Labs CBC & Chem 7: 05/21/24 04:21 05/21/24 07:17 Labs: Abnormal Lab Results - Last 24 Hours (Table) 05/20/24 05/20/24 05/20/24 Range/Units 12:13 12:13 18:27 WBC 17.2 H (3.8-10.6) k/uL Hgb 10.2 L (11.4-16.0) gm/dL Hct 33.5 L (34.0-46.0) % MCHC 30.5 L (31.0-37.0) g/dL Neutrophils # 15.2 H (1.3-7.7) k/uL Lymphocytes # 0.6 L (1.0-4.8) k/uL Monocytes # 1.1 H (0-1.0) k/uL PT 13.8 H (10.0-12.5) sec INR 1.3 H (<1.2) APTT 36.4 H 110.8 H* (22.0-30.0) sec Sodium (137-145) mmol/L Carbon Dioxide (22-30) mmol/L BUN (7-17) mg/dL Calcium (8.4-10.2) mg/dL Total Protein (6.3-8.2) g/dL Albumin (3.5-5.0) g/dL 05/21/24 05/21/24 05/21/24 Range/Units 04:21 04:21 07:17 WBC 14.5 H (3.8-10.6) k/uL Hgb 9.7 L (11.4-16.0) gm/dL Hct 31.7 L (34.0-46.0) % MCHC 30.8 L (31.0-37.0) g/dL Neutrophils # 12.0 H (1.3-7.7) k/uL Lymphocytes # 0.6 L (1.0-4.8) k/uL Monocytes # 1.6 H (0-1.0) k/uL PT 15.7 H (10.0-12.5) sec INR 1.5 H (<1.2) APTT 84.5 H (22.0-30.0) sec Sodium 130 L (137-145) mmol/L Carbon Dioxide 15 L (22-30) mmol/L BUN 32 H (7-17) mg/dL Calcium 8.0 L (8.4-10.2) mg/dL Total Protein 4.9 L (6.3-8.2) g/dL Albumin 1.8 L (3.5-5.0) g/dL Assessment and Plan (1) Intra-abdominal abscess Current Visit: Yes Status: Acute Code(s): K65.1 - PERITONEAL ABSCESS SNOMED Code(s): 77849986 (2) Peritonitis Current Visit: Yes Status: Acute Code(s): K65.9 - PERITONITIS, UNSPECIFIED SNOMED Code(s): 75135744 (3) Perforation of sigmoid colon due to diverticulitis Current Visit: No Status: Acute Code(s): K57.20 - DVTRCLI OF LG INT W PERFORATION AND ABSCESS W/O BLEEDING SNOMED Code(s): 3595104431835430 Plan: 1patient presented to hospital with sepsis in this patient who did have fever tachycardia elevated white count source is complicated diverticulitis now with evidence of pneumoperitoneum and worsening inflammatory changes will need to cover for the enteric gram-negative both aerobes and anaerobes 2-patient is status post laparotomy small bowel resection and diverting colostomyoperative report did not mention any abscess and no culture 3-patient white count is trending down with addition of Eraxis to continue along with Zosyn and monitor clinical course closely Dictation was produced using [employer] dictation software. please excuse any grammatical, word or spelling errors. Time with Patient: Less than 30
--- NOTE | 2024-05-21 16:28 | P.PN ---
Subjective Progress Note Date: 05/21/24 Interval History: 73-year-old female with past medical history significant for atrial fibrillation, AICD in place, ischemic cardiomyopathy with a EF 45%, coronary artery disease status post stenting August 2023, hypertension, hyperlipidemia who presented to ER with a complaint of defibrillator shock. Patient was discharged yesterday on oral antibiotics Ceftin and Flagyl, when patient was admitted for acute diverticulitis with perforation, infectious disease and general surgery was consulted and patient was continued on medical management during hospitalization and eventually discharged after clearance from general surgery after patient symptoms improved. Patient reported that she had of defibrillator shock yesterday, had 1 more shock earlier today leading to fall. Patient reported that she has not had a bowel movement. Patient has not started her home medication. Patient also reported fever and chills, reported abdominal distention, reported abdominal pain is same. Patient denied any headache, sore throat, productive cough, shortness of breath, chest pain, palpitations, dysuria urgency frequency weakness or numbness of extremities. Vitals: Temperature 100.3, heart rate 118, respiratory rate 18, blood pressure 101/62, saturating 94% on room air. Labs: WBCs 13.4, trending down, hemoglobin 11.3, platelets 453, INR 1.1, creatinine 0.49, BUN 16, normal ALT AST alkaline phosphatase and bilirubin. 05/17--patient was seen and examined today. Complaining of abdominal pain, nausea. Patient CT abdomen pelvis overnight showed acute diverticulitis with perforation with worsening pneumoperitoneum, general surgery consulted and following, planning for OR tomorrow as patient received Plavix today. Remains on amiodarone drip per cardiology. Monitor with telemetry. N.p.o., IV fluids, hold Farxiga. 05/18/2024 Patient is currently n.p.o. scheduled to undergo surgical intervention secondary to diverticulitis with perforation with general surgery. Will await surgical report. 05/19/2024 Patient is seen in follow-up this morning status post exploratory laparotomy, diverting colostomy and small bowel resection. Patient ostomy with some blood noted with no bowel activity as of yet. Patient blood pressures are on the lower side and receiving a bolus and will follow-up with repeat labs. Patient with decreased urine output although patient has not been n.p.o. for over 24 hours. White count is elevated although patient remains afebrile and kidney function mildly elevated as well recommend gentle hydration and follow-up on repeat labs. Patient continues with an NG tube for decompression with minimal frothy output noted. Discussed with the patient about ambulating and increasing activity as soon as possible and recommend PT/OT therapy evaluation. Patient also to continue with frequent offloading and position changes as patient is noted to have a stage II sacral decubitus ulcer that was present on admission. 05/20/2024 Patient is seen and evaluated in follow-up this morning with daughter at the bedside having some serous drainage output noted in ostomy. No bowel movement as of yet although patient did report she thought she noticed some air in the ostomy. Patient remains n.p.o. and continues with NG tube for decompression with multiple consultations following. Patient will continue on IV amiodarone and okay to resume IV heparin until tolerating oral intake per surgery to resume. Patient has not been up and walking and recommend PT/OT therapy evaluation and sitting up in the chair more often. Patient is extremely uncomfortable with the NG tube although understands its importance. Continue with mouth swabs frequently to the oral mucosa as it is extremely dry. Kidney function slightly worsened and sodium on the lower side recommend transitioning IV fluids with a decreased rate of D5 and normal saline as opposed to half- normal saline and recommend repeat labs. Urine output is fair and continues with indwelling Duarte catheter. Patient reporting some vaginal discomfort near the catheter and discussed with nursing staff about repositioning and continued Duarte catheter care and management. Blood pressures soft overall stable and will continue current regimen. Cardiology is following as well. 05/21--patient was seen and examined today. Patient had colostomy output, general surgery planning to DC NG tube. Plan to start ice chips and popsicles with slow advancement of diet. Patient currently on Zosyn and Eraxis per infectious disease. Will continue monitor labs. WBCs trending down to 14.5. Hemoglobin stable 9.7. Platelet normal. Sodium 130 potassium 4.3, BUN 32, creatinine 0.90. Assessment and plan: Acute diverticulitis with perforation: Worsening pneumoperitoneum with sepsis, present on admission status post exploratory laparotomy, diverting colostomy and small bowel resection, postop day 3 Leukocytosis, secondary to above, trending down Fevers, present on admission secondary to above, resolved defibrillator shock: With history of CAD status post stent in August [address] Hypertension, currently normotensive Hyperlipidemia Chronic systolic CHF, not in exacerbation, currently euvolemic A-fib with RVR, currently rate controlled Obesity with a BMI 31.0 Stage II sacral decubitus ulcer, present on admission GI prophylaxis DVT prophylaxis Full code Plan: Patient is currently n.p.o. and is status post exploratory laparotomy, diverting colostomy and small bowel resection Patient is noted to have a stage II sacral decubitus ulcer and recommend zinc barrier paste as well as frequent offloading and Optifoam to the area with position changes every 2 hours Follow-up on labs and replace electrolytes per protocol Patient continued on gentle hydration of D5 half-normal saline although sodium continues to trend down and kidney functions worsening recommend D5 due to n.p.o. status and normal saline at a decreased rate and follow-up on repeat labs. Continue n.p.o. diet until advance per surgery. Patient to continue with NG tube for decompression Continue Zosyn, Eraxis, ID following Heparin drip, holding Eliquis PT/OT therapy to evaluate as patient is significantly weak and not getting up out of bed at all. Encouraged incentive spirometer use at least 10 times every hour while awake. Patient currently maintained on room air and denies shortness of breath. Overall prognosis is guarded DVT prophylaxis: SCD PHYSICAL EXAMINATION: GENERAL: The patient is A&O x3, NAD HEENT: EOMI, Sclerae anicteric, Moist Mucous membranes Neck: Supple, Non tender, No JVD PULMONARY: Equal breath souds B/L, No wheezing, No crackles. CARDIOVASCULAR: S1, S2 present. No murmurs, rubs, or gallops. ABDOMEN: Soft, nontender, nondistended, normoactive bowel sounds. No guarding or rebound tenderness. MUSCULOSKELETAL: No edema, No cyanosis. No clubbing. Normal ROM. Intact peripheral pulses. EXTREMITIES: No cyanosis, clubbing, or pedal edema. NEUROLOGICAL: CN 2-12 grossly intact. No FND Skin: No Rash REVIEW OF SYSTEMS: CONSTITUTIONAL: No fever or chills. CARDIOVASCULAR: No chest pain, palpitations or syncope. PULMONARY: No shortness of breath, no cough, sore throat. GASTROINTESTINAL: No nausea, vomiting, diarrhea, abdominal pain. : No Dysuria, urgency, frequency. Extremities: No edema. NEUROLOGICAL: No headaches, no weakness, or numbness Dictation was produced using [employer] dictation software. please excuse any grammatical, word or spelling errors. Objective - Vital Signs Vital signs: Vital Signs Temp 98.5 F 05/21/24 15:48 Pulse 86 05/21/24 15:48 Resp 18 05/21/24 15:48 BP 96/68 05/21/24 15:48 Pulse Ox 94 L 05/21/24 15:48 FiO2 Intake & Output 05/20/24 05/21/24 05/21/24 18:59 06:59 18:59 Intake Total 400 485.542 276.325 Output Total 425 1010 750 Balance -25 -524.458 -473.675 Weight 76.5 kg Intake: IV 40 Invasive Line 7 20 Invasive Line 8 10 Invasive Line 9 10 Intake, IV Titration 400 485.542 236.325 Amount Amiodarone 360 mg In 400 365.552 200 Dextrose 5% in Water 200 ml @ 1 MG/MIN 33.333 mls/ hr IV .Q6H [facility] Rx#: [id number] Heparin Sod,Pork in 0.45% 119.990 36.325 NaCl 25,000 unit In 0.45 % NaCl 1 250ml.bag @ 12 UNITS/KG/HR 9.18 mls/hr IV .Q24H [facility] Rx#: [id number] Oral 0 Output: Gastric Drainage 400 Drainage 10 Right Abdomen 10 Urine 425 600 400 Stool 350 Other: Voiding Method Indwelling Catheter Indwelling Catheter Indwelling Catheter - Labs CBC & Chem 7: 05/21/24 04:21 05/21/24 07:17 Labs: Abnormal Lab Results - Last 24 Hours (Table) 05/20/24 05/21/24 05/21/24 Range/Units 18:27 04:21 04:21 WBC 14.5 H (3.8-10.6) k/uL Hgb 9.7 L (11.4-16.0) gm/dL Hct 31.7 L (34.0-46.0) % MCHC 30.8 L (31.0-37.0) g/dL Neutrophils # 12.0 H (1.3-7.7) k/uL Lymphocytes # 0.6 L (1.0-4.8) k/uL Monocytes # 1.6 H (0-1.0) k/uL PT 15.7 H (10.0-12.5) sec INR 1.5 H (<1.2) APTT 110.8 H* 84.5 H (22.0-30.0) sec Sodium (137-145) mmol/L Carbon Dioxide (22-30) mmol/L BUN (7-17) mg/dL Calcium (8.4-10.2) mg/dL Total Protein (6.3-8.2) g/dL Albumin (3.5-5.0) g/dL 05/21/24 05/21/24 Range/Units 07:17 12:01 WBC (3.8-10.6) k/uL Hgb (11.4-16.0) gm/dL Hct (34.0-46.0) % MCHC (31.0-37.0) g/dL Neutrophils # (1.3-7.7) k/uL Lymphocytes # (1.0-4.8) k/uL Monocytes # (0-1.0) k/uL PT (10.0-12.5) sec INR (<1.2) APTT 67.8 H (22.0-30.0) sec Sodium 130 L (137-145) mmol/L Carbon Dioxide 15 L (22-30) mmol/L BUN 32 H (7-17) mg/dL Calcium 8.0 L (8.4-10.2) mg/dL Total Protein 4.9 L (6.3-8.2) g/dL Albumin 1.8 L (3.5-5.0) g/dL
--- NOTE | 2024-05-21 18:56 | P.PN ---
Subjective Progress Note Date: 05/21/24 HISTORY OF PRESENT ILLNESS: This is a 73-year-old female with a past medical history significant for di verticulitis, coronary artery disease, ischemic cardiomyopathy, hypertension, and hyperlipidemia. Patient follows in the office with Dr. Lopez. We have been asked to see the patient in consultation for defibrillator discharge. Patient examined at the bedside in the emergency room. Patient was admitted last week to the hospital secondary to diverticulitis with microperforation. Patient was treated conservatively and was discharged home on antibiotics. The patient reported back to the hospital with a chief complaint of her ICD firing. She continues to report SOB. She denies chest pain or pressure. DIAGNOSTICS: - EKG reveals paced rhythm with PVCs - Chest xray negative for acute process - Laboratory data: WBC 16.9. Hemoglobin 10.9. Platelet count 425. Sodium 135. Potassium 3.6. BUN 16. Creatinine 0.63. Troponin negative x 3 - Current home cardiac medications include aspirin 81 mg at night, Plavix 75 mg at night, Jardiance 10 mg daily, metoprolol succinate 25 mg daily, spiron olactone 25 mg daily, lisinopril 20 mg twice a day - Most recent echocardiogram obtained in April 2024 revealed ejection fraction 40 to 45%, global hypokinesis, trace aortic regurgitation, trace tricuspid regurgitation, mild mitral regurgitation - Cardiac catheterization history: August 2023 with stenting of the proximal LAD 05/19/2024 Patient is status post exploratory laparotomy, small bowel resection, and diverting colostomy. Patient denies chest pain or pressure. Denies shortness of breath. Telemetry reveals paced rhythm. Patient remains NPO. 05/20/2024 Patient examined this morning at the bedside. Patient denies chest pain or pressure. She denies shortness of breath. She remains NPO. NG tube remains in place. Telemetry reveals atrial fibrillation/paced rhythm. Creatinine today 1.41. 05/21/2024 Patient is slowly improving. NG tube is out, able to tolerate clear liquid diet today. PHYSICAL EXAM: VITAL SIGNS: Reviewed. GENERAL: Well-developed in no acute distress. HEENT: Head is normocephalic. Pupils are equal, round. Sclerae anicteric. Mucous membranes of the mouth are moist. Neck supple. No JVD or thyromegaly LUNGS: Respirations even and unlabored. Lungs essentially clear to auscultation bilaterally. HEART: Irregular rate and rhythm. S1 and S2 heard. ABDOMEN: Soft. Tenderness with palpation. EXTREMITIES: Normal range of motion. No clubbing or cyanosis. Peripheral pulses intact. No lower extremity edema NEUROLOGIC: Awake and alert. Oriented x 3. ASSESSMENT: New onset atrial fibrillation, captured on ICD interrogation Inappropriate ICD discharge x 2, no VT/VF on ICD interrogation Diverticulitis with pneumoperitoneum status post exploratory laparotomy, diverting colostomy and small bowel resection Acute kidney injury Recent hospitalization for acute diverticulitis with microperforation Coronary artery disease with previous PCI, most recently to proximal LAD in August 2023 Ischemic cardiomyopathy 30% with recent ICD implantation, improved to 4045% Hypertension Hyperlipidemia PLAN: ICD was interrogated. Patient was shocked twice. However, no VT/VF was noted. Patient was in AFIB at that time meaning ICD inappropriately discharged. Mindy landa patient does not have a history of atrial fibrillation. Patient will require anticoagulation when cleared by general surgery Continue IV heparin drip for now. Transition to p.o. in next 1 to 2 days Discontinue amiodarone drip. Start amiodarone 200 mg 3 times daily. Start metoprolol succinate 25 mg daily. Uptitrate as blood pressure and heart rate tolerates Further recommendations pending patient course Objective - Vital Signs Vital signs: Vital Signs Temp 98.5 F 05/21/24 15:48 Pulse 86 05/21/24 15:48 Resp 18 05/21/24 15:48 BP 96/68 05/21/24 15:48 Pulse Ox 94 L 05/21/24 15:48 FiO2 Intake & Output 05/20/24 05/21/24 05/21/24 18:59 06:59 18:59 Intake Total 400 485.542 276.325 Output Total 425 1010 750 Balance -25 -524.458 -473.675 Weight 76.5 kg Intake: IV 40 Invasive Line 7 20 Invasive Line 8 10 Invasive Line 9 10 Intake, IV Titration 400 485.542 236.325 Amount Amiodarone 360 mg In 400 365.552 200 Dextrose 5% in Water 200 ml @ 1 MG/MIN 33.333 mls/ hr IV .Q6H [facility] Rx#: [id number] Heparin Sod,Pork in 0.45% 119.990 36.325 NaCl 25,000 unit In 0.45 % NaCl 1 250ml.bag @ 12 UNITS/KG/HR 9.18 mls/hr IV .Q24H [facility] Rx#: [id number] Oral 0 Output: Gastric Drainage 400 Drainage 10 Right Abdomen 10 Urine 425 600 400 Stool 350 Other: Voiding Method Indwelling Catheter Indwelling Catheter Indwelling Catheter - Labs CBC & Chem 7: 05/21/24 04:21 05/21/24 07:17 Labs: Abnormal Lab Results - Last 24 Hours (Table) 05/20/24 05/21/24 05/21/24 Range/Units 18:27 04:21 04:21 WBC 14.5 H (3.8-10.6) k/uL Hgb 9.7 L (11.4-16.0) gm/dL Hct 31.7 L (34.0-46.0) % MCHC 30.8 L (31.0-37.0) g/dL Neutrophils # 12.0 H (1.3-7.7) k/uL Lymphocytes # 0.6 L (1.0-4.8) k/uL Monocytes # 1.6 H (0-1.0) k/uL PT 15.7 H (10.0-12.5) sec INR 1.5 H (<1.2) APTT 110.8 H* 84.5 H (22.0-30.0) sec Sodium (137-145) mmol/L Carbon Dioxide (22-30) mmol/L BUN (7-17) mg/dL Calcium (8.4-10.2) mg/dL Total Protein (6.3-8.2) g/dL Albumin (3.5-5.0) g/dL 05/21/24 05/21/24 Range/Units 07:17 12:01 WBC (3.8-10.6) k/uL Hgb (11.4-16.0) gm/dL Hct (34.0-46.0) % MCHC (31.0-37.0) g/dL Neutrophils # (1.3-7.7) k/uL Lymphocytes # (1.0-4.8) k/uL Monocytes # (0-1.0) k/uL PT (10.0-12.5) sec INR (<1.2) APTT 67.8 H (22.0-30.0) sec Sodium 130 L (137-145) mmol/L Carbon Dioxide 15 L (22-30) mmol/L BUN 32 H (7-17) mg/dL Calcium 8.0 L (8.4-10.2) mg/dL Total Protein 4.9 L (6.3-8.2) g/dL Albumin 1.8 L (3.5-5.0) g/dL
[2024-05-21] MEDS: METOPROLOL SUCCINATE (ER) 25 MG TAB.ER.24H PO SCH (19:10)
[2024-05-21] MEDS: AMIODARONE 200 MG TAB PO SCH (20:29)
[2024-05-22 07:12] LABS: ALT 10 U/L (4-34); AST 26 U/L (14-36); African American GFR (CKD) 63 (>60 ml/min/1.73 sqM); Albumin 1.7 g/dL (3.5-5.0); Alkaline Phosphatase 93 U/L (38-126); Anion Gap 11 mmol/L; Blood Urea Nitrogen 28 mg/dL (7-17); Calcium 7.9 mg/dL (8.4-10.2); Carbon Dioxide 14 mmol/L (22-30); Chloride 111 mmol/L (98-107); Glucose 87 mg/dL (74-99); Non-African American GFR(CKD) 55 (>60 ml/min/1.73 sqM); Potassium 3.4 mmol/L (3.5-5.1); Sodium 136 mmol/L (137-145); Total Bilirubin 0.6 mg/dL (0.2-1.3)
[2024-05-22 07:17] LABS: HGB 10.4 gm/dL (11.4-16.0); Hypochromasia Marked; MCH 24.7 pg (25.0-35.0); MCHC 29.5 g/dL (31.0-37.0); MCV 83.6 fL (80.0-100.0); Mean Platelet Volume 7.7; Platelet Count 363 k/uL (150-450); RBC 4.19 m/uL (3.80-5.40); RDW 15.4 % (11.5-15.5); WBC 12.6 k/uL (3.8-10.6)
[2024-05-22 08:16] LABS: Monocytes # (M) 0.88 k/uL (0-1.0); Neutrophils # (M) 11.21 k/uL (1.3-7.7); Neutrophils % (M) 89 %; Nucleated Red Blood Cells 0 /100 WBC (0-0); Total Cells Counted 100
[2024-05-22] MEDS ORDERED: Potassium Replacement Protocol 1 EACH MISC MISCELLANE PRN (10:46)
[2024-05-22] MEDS: POTASSIUM CHLORIDE ER 20 MEQ TAB.ER PO SCH (11:04)
--- NOTE | 2024-05-22 15:11 | P.PN ---
Subjective Progress Note Date: 05/22/24 Principal diagnosis: Reason for follow-up is perforated diverticulitis and peritonitis Patient is a 73-year-old female with a past medical history significant for hypertension hyperlipidemia [place] atrial fibrillation, patient was recently admitted at this facility and has been diagnosed with a diverticulitis with microperforation pending bed to the hospital with a defibrillator shock with repeat CT abdominal pelvis shows worsening pneumoperitoneum, patient was taken to the OR on 05/18/2024 status post small bowel resection because of adhesion that is and diverting colostomy operative report did not mention any abscess and no culture On today's evaluation that is 05/22/2024, the patient continues to be afebrile, the patient is on room air and breathing comfortably, the Pt denies having any chest pain or cough, the patient NG is out did have some nausea but no vomiting abdominal pain controlled with the pain medication no output in the colostomy. Patient white count is down to 12.6, creatinine 1.01 Objective - Vital Signs Vital signs: Vital Signs Temp 98.2 F 05/22/24 11:01 Pulse 108 H 05/22/24 11:01 Resp 20 05/22/24 11:01 BP 130/85 05/22/24 12:00 Pulse Ox 96 05/22/24 11:01 FiO2 Intake & Output 05/21/24 05/22/24 05/22/24 18:59 06:59 18:59 Intake Total 276.325 77.201 66.236 Output Total 750 10 80 Balance -473.675 67.201 -13.764 Intake: IV 40 30 Invasive Line 6 10 Invasive Line 7 20 10 Invasive Line 8 10 10 Invasive Line 9 10 Intake, IV Titration 236.325 77.201 36.236 Amount Amiodarone 360 mg In 200 Dextrose 5% in Water 200 ml @ 1 MG/MIN 33.333 mls/ hr IV .Q6H [facility] Rx#: [id number] Heparin Sod,Pork in 0.45% 36.325 77.201 36.236 NaCl 25,000 unit In 0.45 % NaCl 1 250ml.bag @ 12 UNITS/KG/HR 9.18 mls/hr IV .Q24H [facility] Rx#: [id number] Output: Drainage 10 80 Right Abdomen 10 80 Urine 400 Stool 350 Other: Voiding Method Indwelling Catheter Indwelling Catheter Indwelling Catheter - Exam GENERAL DESCRIPTION: An elderly female lying in bed in no distress RESPIRATORY SYSTEM: Unlabored breathing , decreased breath sounds at bases HEART: S1 S2 regular rate and rhythm , ABDOMEN: Soft , mild tenderness EXTREMITIES: No edema feet - Labs CBC & Chem 7: 05/22/24 06:23 05/22/24 06:23 Labs: Abnormal Lab Results - Last 24 Hours (Table) 05/22/24 05/22/24 05/22/24 Range/Units 06:23 06:23 06:23 WBC 12.6 H (3.8-10.6) k/uL Hgb 10.4 L (11.4-16.0) gm/dL MCH 24.7 L (25.0-35.0) pg MCHC 29.5 L (31.0-37.0) g/dL Neutrophils # (Manual) 11.21 H (1.3-7.7) k/uL Lymphocytes # (Manual) 0.50 L (1.0-4.8) k/uL APTT 70.7 H (22.0-30.0) sec Sodium 136 L (137-145) mmol/L Potassium 3.4 L (3.5-5.1) mmol/L Chloride 111 H (98-107) mmol/L Carbon Dioxide 14 L (22-30) mmol/L BUN 28 H (7-17) mg/dL Calcium 7.9 L (8.4-10.2) mg/dL Total Protein 5.0 L (6.3-8.2) g/dL Albumin 1.7 L (3.5-5.0) g/dL Assessment and Plan (1) Intra-abdominal abscess Current Visit: Yes Status: Acute Code(s): K65.1 - PERITONEAL ABSCESS SNOMED Code(s): 40302146 (2) Peritonitis Current Visit: Yes Status: Acute Code(s): K65.9 - PERITONITIS, UNSPECIFIED SNOMED Code(s): 68205898 (3) Perforation of sigmoid colon due to diverticulitis Current Visit: No Status: Acute Code(s): K57.20 - DVTRCLI OF LG INT W PERFORATION AND ABSCESS W/O BLEEDING SNOMED Code(s): 7854834616371691 Plan: 1patient presented to hospital with sepsis in this patient who did have fever tachycardia elevated white count source is complicated diverticulitis now with evidence of pneumoperitoneum and worsening inflammatory changes will need to cover for the enteric gram-negative both aerobes and anaerobes 2-patient is status post laparotomy small bowel resection and diverting colostomyoperative report did not mention any abscess and no culture 3-patient white count is is down to 12,000 we will continue with Eraxis and Zosyn and monitor clinical course closely Dictation was produced using [employer] dictation software. please excuse any grammatical, word or spelling errors. Time with Patient: Less than 30
--- NOTE | 2024-05-22 15:38 | P.PN ---
Subjective Progress Note Date: 05/22/24 Interval History: 73-year-old female with past medical history significant for atrial fibrillation, AICD in place, ischemic cardiomyopathy with a EF 45%, coronary artery disease status post stenting August 2023, hypertension, hyperlipidemia who presented to ER with a complaint of defibrillator shock. Patient was discharged yesterday on oral antibiotics Ceftin and Flagyl, when patient was admitted for acute diverticulitis with perforation, infectious disease and general surgery was consulted and patient was continued on medical management during hospitalization and eventually discharged after clearance from general surgery after patient symptoms improved. Patient reported that she had of defibrillator shock yesterday, had 1 more shock earlier today leading to fall. Patient reported that she has not had a bowel movement. Patient has not started her home medication. Patient also reported fever and chills, reported abdominal distention, reported abdominal pain is same. Patient denied any headache, sore throat, productive cough, shortness of breath, chest pain, palpitations, dysuria urgency frequency weakness or numbness of extremities. Vitals: Temperature 100.3, heart rate 118, respiratory rate 18, blood pressure 101/62, saturating 94% on room air. Labs: WBCs 13.4, trending down, hemoglobin 11.3, platelets 453, INR 1.1, creatinine 0.49, BUN 16, normal ALT AST alkaline phosphatase and bilirubin. 05/17--patient was seen and examined today. Complaining of abdominal pain, nausea. Patient CT abdomen pelvis overnight showed acute diverticulitis with perforation with worsening pneumoperitoneum, general surgery consulted and following, planning for OR tomorrow as patient received Plavix today. Remains on amiodarone drip per cardiology. Monitor with telemetry. N.p.o., IV fluids, hold Farxiga. 05/18/2024 Patient is currently n.p.o. scheduled to undergo surgical intervention secondary to diverticulitis with perforation with general surgery. Will await surgical report. 05/19/2024 Patient is seen in follow-up this morning status post exploratory laparotomy, diverting colostomy and small bowel resection. Patient ostomy with some blood noted with no bowel activity as of yet. Patient blood pressures are on the lower side and receiving a bolus and will follow-up with repeat labs. Patient with decreased urine output although patient has not been n.p.o. for over 24 hours. White count is elevated although patient remains afebrile and kidney function mildly elevated as well recommend gentle hydration and follow-up on repeat labs. Patient continues with an NG tube for decompression with minimal frothy output noted. Discussed with the patient about ambulating and increasing activity as soon as possible and recommend PT/OT therapy evaluation. Patient also to continue with frequent offloading and position changes as patient is noted to have a stage II sacral decubitus ulcer that was present on admission. 05/20/2024 Patient is seen and evaluated in follow-up this morning with daughter at the bedside having some serous drainage output noted in ostomy. No bowel movement as of yet although patient did report she thought she noticed some air in the ostomy. Patient remains n.p.o. and continues with NG tube for decompression with multiple consultations following. Patient will continue on IV amiodarone and okay to resume IV heparin until tolerating oral intake per surgery to resume. Patient has not been up and walking and recommend PT/OT therapy evaluation and sitting up in the chair more often. Patient is extremely uncomfortable with the NG tube although understands its importance. Continue with mouth swabs frequently to the oral mucosa as it is extremely dry. Kidney function slightly worsened and sodium on the lower side recommend transitioning IV fluids with a decreased rate of D5 and normal saline as opposed to half- normal saline and recommend repeat labs. Urine output is fair and continues with indwelling Duarte catheter. Patient reporting some vaginal discomfort near the catheter and discussed with nursing staff about repositioning and continued Duarte catheter care and management. Blood pressures soft overall stable and will continue current regimen. Cardiology is following as well. 05/21--patient was seen and examined today. Patient had colostomy output, general surgery planning to DC NG tube. Plan to start ice chips and popsicles with slow advancement of diet. Patient currently on Zosyn and Eraxis per infectious disease. Will continue monitor labs. WBCs trending down to 14.5. Hemoglobin stable 9.7. Platelet normal. Sodium 130 potassium 4.3, BUN 32, creatinine 0.90. 05/22/2024--patient was seen and examined today. NG tube is out. Currently on ice chips with popsicles. Reported colostomy output. Vitals unremarkable, afebrile. WBC trending down 12.6. Hemoglobin stable 10.4. Platelet 363. Sodium improved to 136, potassium 3.4, BUN 28, creatinine 1.01. LFTs unremarkable. Cardiology following. Off amiodarone drip, currently on amiodarone 200 mg 3 times daily, metoprolol. Cardiology recommended to uptitrate rate metoprolol as tolerated. Assessment and plan: Acute diverticulitis with perforation: Worsening pneumoperitoneum with sepsis, present on admission status post exploratory laparotomy, diverting colostomy and small bowel resection, postop day 4 Leukocytosis, secondary to above, trending down Fevers, present on admission secondary to above, resolved defibrillator shock: With history of CAD status post stent in August [address] Hypertension, currently normotensive Hyperlipidemia Chronic systolic CHF, not in exacerbation, currently euvolemic A-fib with RVR, currently rate controlled Obesity with a BMI 31.0 Stage II sacral decubitus ulcer, present on admission GI prophylaxis DVT prophylaxis Full code Plan: Patient is currently n.p.o. and is status post exploratory laparotomy, diverting colostomy and small bowel resection Patient is noted to have a stage II sacral decubitus ulcer and recommend zinc barrier paste as well as frequent offloading and Optifoam to the area with position changes every 2 hours Follow-up on labs and replace electrolytes per protocol NG tube output Continue IV fluids. Currently n.p.o. with ice chips and popsicles. Continue Zosyn, Eraxis, ID following Heparin drip, holding Eliquis, on p.o. amiodarone and metoprolol per cardiology. PT/OT therapy to evaluate as patient is significantly weak and not getting up out of bed at all. Encouraged incentive spirometer use at least 10 times every hour while awake. Patient currently maintained on room air and denies shortness of breath. Overall prognosis is guarded DVT prophylaxis: AC PHYSICAL EXAMINATION: GENERAL: The patient is A&O x3, NAD HEENT: EOMI, Sclerae anicteric, Moist Mucous membranes Neck: Supple, Non tender, No JVD PULMONARY: Equal breath souds B/L, No wheezing, No crackles. CARDIOVASCULAR: S1, S2 present. No murmurs, rubs, or gallops. ABDOMEN: Soft, nontender, nondistended, normoactive bowel sounds. No guarding or rebound tenderness. MUSCULOSKELETAL: No edema, No cyanosis. No clubbing. Normal ROM. Intact peripheral pulses. EXTREMITIES: No cyanosis, clubbing, or pedal edema. NEUROLOGICAL: CN 2-12 grossly intact. No FND Skin: No Rash REVIEW OF SYSTEMS: CONSTITUTIONAL: No fever or chills. CARDIOVASCULAR: No chest pain, palpitations or syncope. PULMONARY: No shortness of breath, no cough, sore throat. GASTROINTESTINAL: No nausea, vomiting, diarrhea, abdominal pain. : No Dysuria, urgency, frequency. Extremities: No edema. NEUROLOGICAL: No headaches, no weakness, or numbness Dictation was produced using [employer] dictation software. please excuse any grammatical, word or spelling errors. Objective - Vital Signs Vital signs: Vital Signs Temp 98.2 F 05/22/24 11:01 Pulse 108 H 05/22/24 11:01 Resp 20 05/22/24 11:01 BP 130/85 05/22/24 12:00 Pulse Ox 96 05/22/24 11:01 FiO2 Intake & Output 05/21/24 05/22/24 05/22/24 18:59 06:59 18:59 Intake Total 276.325 77.201 66.236 Output Total 750 10 80 Balance -473.675 67.201 -13.764 Intake: IV 40 30 Invasive Line 6 10 Invasive Line 7 20 10 Invasive Line 8 10 10 Invasive Line 9 10 Intake, IV Titration 236.325 77.201 36.236 Amount Amiodarone 360 mg In 200 Dextrose 5% in Water 200 ml @ 1 MG/MIN 33.333 mls/ hr IV .Q6H [facility] Rx#: [id number] Heparin Sod,Pork in 0.45% 36.325 77.201 36.236 NaCl 25,000 unit In 0.45 % NaCl 1 250ml.bag @ 12 UNITS/KG/HR 9.18 mls/hr IV .Q24H [facility] Rx#: [id number] Output: Drainage 10 80 Right Abdomen 10 80 Urine 400 Stool 350 Other: Voiding Method Indwelling Catheter Indwelling Catheter Indwelling Catheter - Labs CBC & Chem 7: 05/22/24 06:23 05/22/24 06:23 Labs: Abnormal Lab Results - Last 24 Hours (Table) 05/22/24 05/22/24 05/22/24 Range/Units 06:23 06:23 06:23 WBC 12.6 H (3.8-10.6) k/uL Hgb 10.4 L (11.4-16.0) gm/dL MCH 24.7 L (25.0-35.0) pg MCHC 29.5 L (31.0-37.0) g/dL Neutrophils # (Manual) 11.21 H (1.3-7.7) k/uL Lymphocytes # (Manual) 0.50 L (1.0-4.8) k/uL APTT 70.7 H (22.0-30.0) sec Sodium 136 L (137-145) mmol/L Potassium 3.4 L (3.5-5.1) mmol/L Chloride 111 H (98-107) mmol/L Carbon Dioxide 14 L (22-30) mmol/L BUN 28 H (7-17) mg/dL Calcium 7.9 L (8.4-10.2) mg/dL Total Protein 5.0 L (6.3-8.2) g/dL Albumin 1.7 L (3.5-5.0) g/dL
[2024-05-22] MEDS: ACETAMINOPHEN TAB 500 MG TAB PO PRN (15:42)
--- NOTE | 2024-05-22 15:55 | P.PN ---
Subjective Progress Note Date: 05/22/24 CHIEF COMPLAINT: Diverticulitis HISTORY OF PRESENT ILLNESS: The patient is a 73-year-old female with perforated diverticulitis status post colostomy. She is tolerating ice chips and popsicles. No nausea and vomiting. Ostomy still functioning. She is on IV antibiotics. ROS: No reports of nausea and vomiting. No fevers or chills. No new chest pain. No productive sputum PHYSICAL EXAM: VITAL SIGNS: Reviewed CONSTITUTIONAL: Well developed and in no acute distress. EYES: Conjuctivae without sclera icterus. Extraocular movements grossly intact. HEAD, EARS, NOSE, THROAT: Moist buccal mucosa. Head is atraumatic, normocephalic. Hears conversational speech. No nasal drainage. RESPIRATORY: Non-labored respirations and equal bilateral excursions. CARDIOVASCULAR: Palpable 2+ radial pulses. ABDOMEN: Stool and flatus within ostomy appliance. Midline incision intact. MUSCULOSKELETAL: No gross deformity of the lower extremities noted. No clubbing. No cyanosis. Moderate edema lower extremity noted. SKIN: Good skin turgor. Well perfused. NEUROLOGIC: Cranial nerves II through XII grossly intact. No focal or lateralizing signs. PSYCH: Appropriate affect. Alert and oriented to person, place and time. CLINICAL LABS: Reviewed. WBC ordered from yesterday trending down to 14,000 and 12,000. ASSESSMENT: 1. Perforated diverticulitis 2. Leukocytosis PLAN: 1. Recommend reweigh patient due to presence of volume overload with lower extremity swelling. 2. Advance diet to clear liquids and may have medications. Objective - Vital Signs Vital signs: Vital Signs Temp 97.7 F 05/22/24 15:37 Pulse 114 H 05/22/24 15:37 Resp 20 05/22/24 15:37 BP 125/69 05/22/24 15:37 Pulse Ox 95 05/22/24 15:37 FiO2 Intake & Output 05/21/24 05/22/24 05/22/24 18:59 06:59 18:59 Intake Total 276.325 77.201 96.236 Output Total 750 10 80 Balance -473.675 67.201 16.236 Intake: IV 40 60 Invasive Line 6 20 Invasive Line 7 20 20 Invasive Line 8 10 20 Invasive Line 9 10 Intake, IV Titration 236.325 77.201 36.236 Amount Amiodarone 360 mg In 200 Dextrose 5% in Water 200 ml @ 1 MG/MIN 33.333 mls/ hr IV .Q6H [facility] Rx#: [id number] Heparin Sod,Pork in 0.45% 36.325 77.201 36.236 NaCl 25,000 unit In 0.45 % NaCl 1 250ml.bag @ 12 UNITS/KG/HR 9.18 mls/hr IV .Q24H [facility] Rx#: [id number] Output: Drainage 10 80 Right Abdomen 10 80 Urine 400 Stool 350 Other: Voiding Method Indwelling Catheter Indwelling Catheter Indwelling Catheter - Labs CBC & Chem 7: 05/22/24 06:23 05/22/24 06:23 Labs: Abnormal Lab Results - Last 24 Hours (Table) 05/22/24 05/22/24 05/22/24 Range/Units 06:23 06:23 06:23 WBC 12.6 H (3.8-10.6) k/uL Hgb 10.4 L (11.4-16.0) gm/dL MCH 24.7 L (25.0-35.0) pg MCHC 29.5 L (31.0-37.0) g/dL Neutrophils # (Manual) 11.21 H (1.3-7.7) k/uL Lymphocytes # (Manual) 0.50 L (1.0-4.8) k/uL APTT 70.7 H (22.0-30.0) sec Sodium 136 L (137-145) mmol/L Potassium 3.4 L (3.5-5.1) mmol/L Chloride 111 H (98-107) mmol/L Carbon Dioxide 14 L (22-30) mmol/L BUN 28 H (7-17) mg/dL Calcium 7.9 L (8.4-10.2) mg/dL Total Protein 5.0 L (6.3-8.2) g/dL Albumin 1.7 L (3.5-5.0) g/dL
--- NOTE | 2024-05-22 18:46 | P.PN ---
Subjective Progress Note Date: 05/22/24 HISTORY OF PRESENT ILLNESS: This is a 73-year-old female with a past medical history significant for di verticulitis, coronary artery disease, ischemic cardiomyopathy, hypertension, and hyperlipidemia. Patient follows in the office with Dr. Lopez. We have been asked to see the patient in consultation for defibrillator discharge. Patient examined at the bedside in the emergency room. Patient was admitted last week to the hospital secondary to diverticulitis with microperforation. Patient was treated conservatively and was discharged home on antibiotics. The patient reported back to the hospital with a chief complaint of her ICD firing. She continues to report SOB. She denies chest pain or pressure. DIAGNOSTICS: - EKG reveals paced rhythm with PVCs - Chest xray negative for acute process - Laboratory data: WBC 16.9. Hemoglobin 10.9. Platelet count 425. Sodium 135. Potassium 3.6. BUN 16. Creatinine 0.63. Troponin negative x 3 - Current home cardiac medications include aspirin 81 mg at night, Plavix 75 mg at night, Jardiance 10 mg daily, metoprolol succinate 25 mg daily, spiron olactone 25 mg daily, lisinopril 20 mg twice a day - Most recent echocardiogram obtained in April 2024 revealed ejection fraction 40 to 45%, global hypokinesis, trace aortic regurgitation, trace tricuspid regurgitation, mild mitral regurgitation - Cardiac catheterization history: August 2023 with stenting of the proximal LAD 05/19/2024 Patient is status post exploratory laparotomy, small bowel resection, and diverting colostomy. Patient denies chest pain or pressure. Denies shortness of breath. Telemetry reveals paced rhythm. Patient remains NPO. 05/20/2024 Patient examined this morning at the bedside. Patient denies chest pain or pressure. She denies shortness of breath. She remains NPO. NG tube remains in place. Telemetry reveals atrial fibrillation/paced rhythm. Creatinine today 1.41. 05/21/2024 Patient is slowly improving. NG tube is out, able to tolerate clear liquid diet today. 05/22/24 Patient was noticed to be n.p.o. today again. Patient denies any chest pain chest pressure. Currently in sinus rhythm. PHYSICAL EXAM: VITAL SIGNS: Reviewed. GENERAL: Well-developed in no acute distress. HEENT: Head is normocephalic. Pupils are equal, round. Sclerae anicteric. Mucous membranes of the mouth are moist. Neck supple. No JVD or thyromegaly LUNGS: Respirations even and unlabored. Lungs essentially clear to auscultation bilaterally. HEART: Irregular rate and rhythm. S1 and S2 heard. ABDOMEN: Soft. Tenderness with palpation. EXTREMITIES: Normal range of motion. No clubbing or cyanosis. Peripheral pulses intact. No lower extremity edema NEUROLOGIC: Awake and alert. Oriented x 3. ASSESSMENT: New onset atrial fibrillation, captured on ICD interrogation Inappropriate ICD discharge x 2, no VT/VF on ICD interrogation Diverticulitis with pneumoperitoneum status post exploratory laparotomy, diverting colostomy and small bowel resection Acute kidney injury Recent hospitalization for acute diverticulitis with microperforation Coronary artery disease with previous PCI, most recently to proximal LAD in August 2023 Ischemic cardiomyopathy 30% with recent ICD implantation, improved to 4045% Hypertension Hyperlipidemia PLAN: ICD was interrogated. Patient was shocked twice. However, no VT/VF was noted. Patient was in AFIB at that time meaning ICD inappropriately discharged. However patient does not have a history of atrial fibrillation. Patient will require anticoagulation when cleared by general surgery Continue IV heparin drip for now. Transition to p.o. in next 1 to 2 days once patient is not anticipating any further surgeries and is able to tolerate oral diet Discontinue amiodarone drip. Start amiodarone 200 mg 3 times daily. Start metoprolol succinate 25 mg daily. Uptitrate as blood pressure and heart rate tolerates Further recommendations pending patient course Objective - Vital Signs Vital signs: Vital Signs Temp 97.7 F 05/22/24 15:37 Pulse 114 H 05/22/24 15:37 Resp 20 05/22/24 15:37 BP 125/69 05/22/24 15:37 Pulse Ox 95 05/22/24 15:37 FiO2 Intake & Output 05/21/24 05/22/24 05/22/24 18:59 06:59 18:59 Intake Total 276.325 77.201 336.236 Output Total 750 10 580 Balance -473.675 67.201 -243.764 Intake: IV 40 60 Invasive Line 6 20 Invasive Line 7 20 20 Invasive Line 8 10 20 Invasive Line 9 10 Intake, IV Titration 236.325 77.201 36.236 Amount Amiodarone 360 mg In 200 Dextrose 5% in Water 200 ml @ 1 MG/MIN 33.333 mls/ hr IV .Q6H [facility] Rx#: [id number] Heparin Sod,Pork in 0.45% 36.325 77.201 36.236 NaCl 25,000 unit In 0.45 % NaCl 1 250ml.bag @ 12 UNITS/KG/HR 9.18 mls/hr IV .Q24H [facility] Rx#: [id number] Oral 240 Output: Drainage 10 80 Right Abdomen 10 80 Urine 400 400 Stool 350 100 Other: Voiding Method Indwelling Catheter Indwelling Catheter Indwelling Catheter - Labs CBC & Chem 7: 05/22/24 06:23 05/22/24 06:23 Labs: Abnormal Lab Results - Last 24 Hours (Table) 05/22/24 05/22/24 05/22/24 Range/Units 06:23 06:23 06:23 WBC 12.6 H (3.8-10.6) k/uL Hgb 10.4 L (11.4-16.0) gm/dL MCH 24.7 L (25.0-35.0) pg MCHC 29.5 L (31.0-37.0) g/dL Neutrophils # (Manual) 11.21 H (1.3-7.7) k/uL Lymphocytes # (Manual) 0.50 L (1.0-4.8) k/uL APTT 70.7 H (22.0-30.0) sec Sodium 136 L (137-145) mmol/L Potassium 3.4 L (3.5-5.1) mmol/L Chloride 111 H (98-107) mmol/L Carbon Dioxide 14 L (22-30) mmol/L BUN 28 H (7-17) mg/dL Calcium 7.9 L (8.4-10.2) mg/dL Total Protein 5.0 L (6.3-8.2) g/dL Albumin 1.7 L (3.5-5.0) g/dL
[2024-05-22] MEDS: oxyCODONE-APAP 5-325MG 1 EACH TAB PO PRN (21:47)
[2024-05-23 07:05] LABS: Basophils % (A) 0 %; Eosinophils # (A) 0.1 k/uL (0-0.7); Eosinophils % (A) 0 %; HCT 30.3 % (34.0-46.0); HGB 9.5 gm/dL (11.4-16.0); Hypochromasia Marked; Lymphocytes # (A) 0.5 k/uL (1.0-4.8); Lymphocytes % (A) 3 %; MCH 25.7 pg (25.0-35.0); MCHC 31.3 g/dL (31.0-37.0); Mean Platelet Volume 7.7; Monocytes # (A) 1.4 k/uL (0-1.0); Monocytes % (A) 8 %; Neutrophils # (A) 15.9 k/uL (1.3-7.7); Neutrophils % (A) 87 %; Platelet Count 290 k/uL (150-450); Poikilocytosis Slight; RBC 3.69 m/uL (3.80-5.40); RDW 15.7 % (11.5-15.5); WBC 18.2 k/uL (3.8-10.6)
[2024-05-23 07:17] LABS: ALT 9 U/L (4-34); AST 20 U/L (14-36); African American GFR (CKD) 71 (>60 ml/min/1.73 sqM); Albumin 1.7 g/dL (3.5-5.0); Alkaline Phosphatase 93 U/L (38-126); Anion Gap 8 mmol/L; Blood Urea Nitrogen 28 mg/dL (7-17); Calcium 8.1 mg/dL (8.4-10.2); Carbon Dioxide 17 mmol/L (22-30); Chloride 115 mmol/L (98-107); Glucose 88 mg/dL (74-99); Magnesium 1.7 mg/dL (1.6-2.3); Non-African American GFR(CKD) 62 (>60 ml/min/1.73 sqM); Potassium 4.3 mmol/L (3.5-5.1); Sodium 140 mmol/L (137-145); Total Bilirubin 0.5 mg/dL (0.2-1.3); Total Protein 4.8 g/dL (6.3-8.2)
[2024-05-23 08:39] LABS: Crenated RBC Present; Target Cells Present
--- NOTE | 2024-05-23 10:45 | P.OBCN ---
History of Present Illness Consult date: 05/23/24 Reason for consult: other (vaginal discharge) Chief complaint: Pt is s/p colectomy with colostomy for perforated bowel. History of present illness: 73 year old woman fighting off infection in her incision after a colostomy due to bowel perforation also has a vaginal discharge now. Nurse noticed some mucoid discharge over the weekend. Review of Systems ROS unobtainable: due to mental status Past Medical History Past Medical History: Atrial Fibrillation, Hyperlipidemia, Hypertension, Myocardial Infarction ([place]) Last Myocardial Infarction Date:: 09/07/2023 History of Any Multi-Drug Resistant Organisms: None Reported Past Surgical History: No Surgical Hx Reported, Heart Catheterization With Stent Additional Past Surgical History / Comment(s): Cardiac stents Past Anesthesia/Blood Transfusion Reactions: No Reported Reaction Date of Last Stent Placement:: 09/07/2023 Past Psychological History: No Psychological Hx Reported Smoking Status: Never smoker Past Alcohol Use History: None Reported, Unable to Obtain Past Drug Use History: None Reported Medications and Allergies Home Medications Medication Instructions Recorded Confirmed Type Aspirin EC [Ecotrin Low Dose] 81 mg PO HS 12/02/17 05/16/24 History Atorvastatin [Lipitor] 40 mg PO DAILY #90 tab 09/11/23 05/16/24 Rx Clopidogrel [Plavix] 75 mg PO DAILY 30 Days #30 tab 09/11/23 05/16/24 Rx lisinopriL [Zestril] 20 mg PO BID #60 tab 09/11/23 05/16/24 Rx Empagliflozin [Jardiance] 10 mg PO DAILY 04/15/24 05/16/24 History Spironolactone 25 mg PO DAILY 04/15/24 05/16/24 History Metoprolol Succinate (ER) [Toprol 25 mg PO DAILY 05/09/24 05/16/24 History XL] Nitroglycerin Sl Tabs [Nitrostat] 0.4 mg SL Q5M PRN 05/09/24 05/16/24 History cefUROXime axetiL [Ceftin] 500 mg PO DIRECTED 05/16/24 05/16/24 History metroNIDAZOLE [Flagyl] 500 mg PO DIRECTED 05/16/24 05/16/24 History Allergies Allergy/AdvReac Type Severity Reaction Status Date / Time Iodinated Contrast Media Allergy Wheezing/hi Verified 05/16/24 14:02 ves iodine Allergy Wheezing/hi Verified 05/16/24 14:02 ves Exam Osteopathic Statement: *. No significant issues noted on an osteopathic structural exam other than those noted in the History and Physical/Consult. Vital Signs Temp Pulse Resp BP BP Pulse Ox 05/23/24 08:00 98.1 F 89 18 117/73 90 L 05/23/24 04:00 98 F 105 H 16 121/72 96 05/23/24 00:00 98.2 F 110 H 16 131/75 96 05/22/24 20:00 98.2 F 108 H 20 113/70 94 L 05/22/24 15:37 97.7 F 114 H 20 125/69 95 05/22/24 12:00 130/85 05/22/24 11:01 98.2 F 108 H 20 118/73 96 Intake and Output 05/22/24 05/23/24 05/23/24 22:59 06:59 14:59 Intake Total 300 30 30 Output Total 500 340 220 Balance -200 -310 -190 Intake: IV 60 30 30 Invasive Line 6 20 10 10 Invasive Line 7 20 10 10 Invasive Line 8 20 10 10 Oral 240 Output: Drainage 40 20 Right Abdomen 40 20 Urine 400 300 Stool 100 200 Other: Voiding Method Indwelling Catheter Indwelling Catheter Indwelling Catheter Pt examined with the nurses and aid at bedside while they were washing her incision and colostomy site. We did a vaginal wipe and observation. no lesions or masses. no active bleeding. vaginal discharge appears to be mucus and may be slightly blood tinged. If it is it is likely related to irritation from catheter or heparin. Results Result Diagrams: 05/23/24 06:07 05/23/24 06:07 Abnormal Lab Results - Last 24 Hours (Table) 05/23/24 05/23/24 05/23/24 Range/Units 06:07 06:07 06:07 WBC 18.2 H (3.8-10.6) k/uL RBC 3.69 L (3.80-5.40) m/uL Hgb 9.5 L (11.4-16.0) gm/dL Hct 30.3 L (34.0-46.0) % RDW 15.7 H (11.5-15.5) % Neutrophils # 15.9 H (1.3-7.7) k/uL Lymphocytes # 0.5 L (1.0-4.8) k/uL Monocytes # 1.4 H (0-1.0) k/uL APTT 56.3 H (22.0-30.0) sec Chloride 115 H (98-107) mmol/L Carbon Dioxide 17 L (22-30) mmol/L BUN 28 H (7-17) mg/dL Calcium 8.1 L (8.4-10.2) mg/dL Total Protein 4.8 L (6.3-8.2) g/dL Albumin 1.7 L (3.5-5.0) g/dL Assessment and Plan (1) Vaginal discharge Current Visit: Yes Status: Acute Code(s): N89.8 - OTHER SPECIFIED NONINFLAMMATORY DISORDERS OF VAGINA SNOMED Code(s): 675716581 Plan: 1. pt is already on antibiotics and antifungals. this does not appear to be an infection, just discharge as she is being treated with multiple meds. If the bleeding starts to get bright red, consider pelvic US.
--- NOTE | 2024-05-23 13:25 | P.PN ---
Subjective Progress Note Date: 05/23/24 CHIEF COMPLAINT: Perforated diverticulitis HISTORY OF PRESENT ILLNESS: Postop day #5 status post exploratory laparotomy, diverting colostomy and small bowel resection. Patient is having increased drainage from the incision site. Drainage is purulent and foul-smelling. VAUGHN drain with purulent discharge 60 mL. Patient's white count has gone up from 12- 18. She is mildly tachycardic. Patient reports no increase in abdominal pain. Ostomy is functioning. Afebrile. Hgb 9.5 platelets 290 creatinine 0.91 PHYSICAL EXAM: VITAL SIGNS: Reviewed. GENERAL: Well-developed in no acute distress. ABDOMEN: Soft. Nondistended. Tenderness around incision site. Purulent drainage noted mostly at the distal aspect of incision from the third wick. Discharge is foul-smelling. VAUGHN drain purulent. NEUROLOGIC: lethargic ASSESSMENT: 1. Perforated diverticulitis 2. Low urine output, acute kidney injury. improved 3. Leukocytosis 4. Hypotension improved 5. Purulent drainage from incision site PLAN: -Dr. Valles notified regarding large amount of foul-smelling drainage from incision site and purulent drainage from VAUGHN. He recommended to remove cinda from the lower incision. The bottom 3 cinda removed from incision site. Purulent drainage noted. Incision cleaned by nursing staff with chlorhexidine. New dressing applied. Continue to change dressing as needed. Dr. Valles did not recommend any further imaging at this time. -Continue to monitor -Continue antibiotics -Continue pain management -Continue clear liquids -DVT prophylaxis subcu heparin Physician [employer] Administrator note has been reviewed by physician. Signing provider agrees with the documented findings, assessment, and plan of care. Objective - Vital Signs Vital signs: Vital Signs Temp 98.1 F 05/23/24 08:00 Pulse 89 05/23/24 08:00 Resp 18 05/23/24 08:00 BP 117/73 05/23/24 08:00 Pulse Ox 90 L 05/23/24 08:00 FiO2 Intake & Output 05/22/24 05/23/24 05/23/24 18:59 06:59 18:59 Intake Total 336.236 60 30 Output Total 580 340 220 Balance -243.764 -280 -190 Intake: IV 60 60 30 Invasive Line 6 20 20 10 Invasive Line 7 20 20 10 Invasive Line 8 20 20 10 Intake, IV Titration 36.236 Amount Heparin Sod,Pork in 0.45% 36.236 NaCl 25,000 unit In 0.45 % NaCl 1 250ml.bag @ 12 UNITS/KG/HR 9.18 mls/hr IV .Q24H [facility] Rx#: [id number] Oral 240 Output: Drainage 80 40 20 Right Abdomen 80 40 20 Urine 400 300 Stool 100 200 Other: Voiding Method Indwelling Catheter Indwelling Catheter Indwelling Catheter - Labs CBC & Chem 7: 05/23/24 06:07 05/23/24 06:07 Labs: Abnormal Lab Results - Last 24 Hours (Table) 05/23/24 05/23/24 05/23/24 Range/Units 06:07 06:07 06:07 WBC 18.2 H (3.8-10.6) k/uL RBC 3.69 L (3.80-5.40) m/uL Hgb 9.5 L (11.4-16.0) gm/dL Hct 30.3 L (34.0-46.0) % RDW 15.7 H (11.5-15.5) % Neutrophils # 15.9 H (1.3-7.7) k/uL Lymphocytes # 0.5 L (1.0-4.8) k/uL Monocytes # 1.4 H (0-1.0) k/uL APTT 56.3 H (22.0-30.0) sec Chloride 115 H (98-107) mmol/L Carbon Dioxide 17 L (22-30) mmol/L BUN 28 H (7-17) mg/dL Calcium 8.1 L (8.4-10.2) mg/dL Total Protein 4.8 L (6.3-8.2) g/dL Albumin 1.7 L (3.5-5.0) g/dL
--- NOTE | 2024-05-23 14:00 | P.PN ---
Subjective Progress Note Date: 05/23/24 HISTORY OF PRESENT ILLNESS: This is a 73-year-old female with a past medical history significant for di verticulitis, coronary artery disease, ischemic cardiomyopathy, hypertension, and hyperlipidemia. Patient follows in the office with Dr. Lopez. We have been asked to see the patient in consultation for defibrillator discharge. Patient examined at the bedside in the emergency room. Patient was admitted last week to the hospital secondary to diverticulitis with microperforation. Patient was treated conservatively and was discharged home on antibiotics. The patient reported back to the hospital with a chief complaint of her ICD firing. She continues to report SOB. She denies chest pain or pressure. DIAGNOSTICS: - EKG reveals paced rhythm with PVCs - Chest xray negative for acute process - Laboratory data: WBC 16.9. Hemoglobin 10.9. Platelet count 425. Sodium 135. Potassium 3.6. BUN 16. Creatinine 0.63. Troponin negative x 3 - Current home cardiac medications include aspirin 81 mg at night, Plavix 75 mg at night, Jardiance 10 mg daily, metoprolol succinate 25 mg daily, spiron olactone 25 mg daily, lisinopril 20 mg twice a day - Most recent echocardiogram obtained in April 2024 revealed ejection fraction 40 to 45%, global hypokinesis, trace aortic regurgitation, trace tricuspid regurgitation, mild mitral regurgitation - Cardiac catheterization history: August 2023 with stenting of the proximal LAD 05/19/2024 Patient is status post exploratory laparotomy, small bowel resection, and diverting colostomy. Patient denies chest pain or pressure. Denies shortness of breath. Telemetry reveals paced rhythm. Patient remains NPO. 05/20/2024 Patient examined this morning at the bedside. Patient denies chest pain or pressure. She denies shortness of breath. She remains NPO. NG tube remains in place. Telemetry reveals atrial fibrillation/paced rhythm. Creatinine today 1.41. 05/21/2024 Patient is slowly improving. NG tube is out, able to tolerate clear liquid diet today. 05/22/24 Patient was noticed to be n.p.o. today again. Patient denies any chest pain chest pressure. Currently in sinus rhythm. 05/23 Patient has had no further discharges of the ICD. He is maintained on heparin drip. Blood pressure 119/62, heart rate 102, pulse ox 96% on 4 L nasal cannula. Repeat blood work reveals hemoglobin 9.5. BUN 28 creatinine 0.91, potassium 4.3. VAUGHN drain remains in place. Patient is currently on a clear liquid diet. PHYSICAL EXAM: VITAL SIGNS: Reviewed. GENERAL: Well-developed in no acute distress. HEENT: Head is normocephalic. Pupils are equal, round. Sclerae anicteric. Mucous membranes of the mouth are moist. Neck supple. No JVD or thyromegaly LUNGS: Respirations even and unlabored. Lungs essentially clear to auscultation bilaterally. HEART: Irregular rate and rhythm. S1 and S2 heard. ABDOMEN: Soft. Tenderness with palpation. EXTREMITIES: Normal range of motion. No clubbing or cyanosis. Peripheral pulses intact. No lower extremity edema NEUROLOGIC: Awake and alert. Oriented x 3. ASSESSMENT: New onset atrial fibrillation, captured on ICD interrogation Inappropriate ICD discharge x 2, no VT/VF on ICD interrogation Diverticulitis with pneumoperitoneum status post exploratory laparotomy, diverting colostomy and small bowel resection Acute kidney injury Recent hospitalization for acute diverticulitis with microperforation Coronary artery disease with previous PCI, most recently to proximal LAD in August 2023 Ischemic cardiomyopathy 30% with recent ICD implantation, improved to 4045% Hypertension Hyperlipidemia PLAN: ICD was interrogated. Patient was shocked twice. However, no VT/VF was noted. Patient was in AFIB at that time meaning ICD inappropriately discharged. However patient does not have a history of atrial fibrillation. Patient will require anticoagulation when cleared by general surgery Continue IV heparin drip for now. We will transition to Eliquis once cleared by general surgery. Continue the following cardiac medications: Amiodarone 200 mg 3 times daily, Toprol XL 25 mg daily Transition to p.o. in next 1 to 2 days once patient is not anticipating any further surgeries and is able to tolerate oral diet Further recommendations pending patient course Nurse practitioner note has been reviewed, I agree with documented findings and plan of care. Patient was seen and examined. Objective - Vital Signs Vital signs: Vital Signs Temp 98 F 05/23/24 04:00 Pulse 105 H 05/23/24 04:00 Resp 16 05/23/24 04:00 BP 121/72 05/23/24 04:00 Pulse Ox 96 05/23/24 04:00 FiO2 Intake & Output 05/22/24 05/23/24 05/23/24 18:59 06:59 18:59 Intake Total 336.236 60 Output Total 580 340 120 Balance -243.764 -280 -120 Intake: IV 60 60 Invasive Line 6 20 20 Invasive Line 7 20 20 Invasive Line 8 20 20 Intake, IV Titration 36.236 Amount Heparin Sod,Pork in 0.45% 36.236 NaCl 25,000 unit In 0.45 % NaCl 1 250ml.bag @ 12 UNITS/KG/HR 9.18 mls/hr IV .[facility]H [facility] Rx#: [id number] Oral 240 Output: Drainage 80 40 20 Right Abdomen 80 40 20 Urine 400 300 Stool 100 100 Other: Voiding Method Indwelling Catheter Indwelling Catheter - Labs CBC & Chem 7: 05/23/24 06:07 05/23/24 06:07 Labs: Abnormal Lab Results - Last 24 Hours (Table) 05/22/24 05/23/24 05/23/24 Range/Units 06:23 06:07 06:07 WBC 18.2 H (3.8-10.6) k/uL RBC 3.69 L (3.80-5.40) m/uL Hgb 9.5 L (11.4-16.0) gm/dL Hct 30.3 L (34.0-46.0) % RDW 15.7 H (11.5-15.5) % Neutrophils # (Manual) 11.21 H (1.3-7.7) k/uL Lymphocytes # (Manual) 0.50 L (1.0-4.8) k/uL APTT 56.3 H (22.0-30.0) sec Chloride (98-107) mmol/L Carbon Dioxide (22-30) mmol/L BUN (7-17) mg/dL Calcium (8.4-10.2) mg/dL Total Protein (6.3-8.2) g/dL Albumin (3.5-5.0) g/dL 05/23/24 Range/Units 06:07 WBC (3.8-10.6) k/uL RBC (3.80-5.40) m/uL Hgb (11.4-16.0) gm/dL Hct (34.0-46.0) % RDW (11.5-15.5) % Neutrophils # (Manual) (1.3-7.7) k/uL Lymphocytes # (Manual) (1.0-4.8) k/uL APTT (22.0-30.0) sec Chloride 115 H (98-107) mmol/L Carbon Dioxide 17 L (22-30) mmol/L BUN 28 H (7-17) mg/dL Calcium 8.1 L (8.4-10.2) mg/dL Total Protein 4.8 L (6.3-8.2) g/dL Albumin 1.7 L (3.5-5.0) g/dL
[2024-05-23] MEDS ORDERED: BARIUM SULFATE 2% - 450 ML ORAL.SUSP BOTTLE PO PRN (14:23)
[2024-05-23] MEDS: NYSTATIN 100,000 UNIT/ML SUSP 500,000 UNIT/5 ML CUP PO SCH (14:52)
[2024-05-23] MEDS: DAPTOmycin 350 MG in SODIUM CHLORIDE 0.9% 50 ML IVPB SCH (14:52)
--- NOTE | 2024-05-23 19:29 | CT ---
EXAMINATION TYPE: CT abdomen pelvis wo con CT DLP: 1234.6 mGycm, Automated exposure control for dose reduction was used. DATE OF EXAM: 05/23/2024 7:16 PM COMPARISON: 05/16/2024 05/09/2024 CLINICAL INDICATION: Female, 73 years old with history of abdominal pain, leukocytosis, incisional dr jo-ann; abdominal pain, leukocytosis, incisional drainage TECHNIQUE: Axial CT abdomen pelvis wo con;Sagittal and coronal reformats were created on a separate workstation. Contrast used: mL of , (none if empty) Oral contrast used: with Oral Contrast (none if empty) FINDINGS: LOWER CHEST: The heart is enlarged cardiac conduction leads present. Atherosclerosis of the arterial vasculature. ABDOMEN LIVER: Unremarkable GALLBLADDER AND BILE DUCTS: Vicarious excretion of contrast in the gallbladder. PANCREAS: Unremarkable. SPLEEN: Unremarkable. ADRENAL GLANDS: Unremarkable. KIDNEYS AND URETERS: Nonobstructing renal cortical calculi versus obstructing calculi. No hydronephro sis. PELVIS BLADDER: Nondistended with Duarte catheter in place. REPRODUCTIVE: Unremarkable. ABDOMEN & PELVIS STOMACH AND BOWEL: No evidence of bowel obstruction. Postsurgical changes near the cecum. PERITONEUM/RETROPERITONEUM: Trace free fluid throughout the abdomen. Mild scattered left lower quadra nt ostomy is present. Parastomal fat-containing hernia is present. Following this change seen in the mid abdomen has decreased gas size comparison is difficult given multidirectional finger like project ions extending towards multiple loops of bowel. VASCULATURE: No evidence of aortic aneurysm. MUSCULOSKELETAL: No acute osseous abnormalities LYMPH NODES: No gross evidence for lymphadenopathy. SOFT TISSUE/ABDOMINAL WALL there is edema and fat stranding throughout the abdomen. No organizing flu id collection within the subcutaneous tissues. IMPRESSION: 1. Diffuse edema within the subcutaneous tissues of the anterior abdominal wall with postsurgical ch imelda. Correlate for anasarca. No organizing fluid collection to suggest abscess. Parastomal fat-conta ining hernia is present. 2. Postsurgical changes with drainage catheter extending across the abdomen. There is mid abdominal phlegmonous change and scattered foci of free air. The overall size is difficult to compare given mul ti directional fingerlike extensions from this region compared to priors. Midline mesenteric abscess formation likely present given free feces in the abdomen on prior exams. 3. Nonobstructing bilateral renal calculi. 4. Duarte catheter in appropriate position
--- NOTE | 2024-05-23 23:20 | P.PN ---
Subjective Progress Note Date: 05/23/24 73-year-old female with past medical history significant for atrial fibrillation, AICD in place, ischemic cardiomyopathy with a EF 45%, coronary artery disease status post stenting August 2023, hypertension, hyperlipidemia who presented to ER with a complaint of defibrillator shock. Patient was disch arged yesterday on oral antibiotics Ceftin and Flagyl, when patient was admitted for acute diverticulitis with perforation, infectious disease and general surgery was consulted and patient was continued on medical management during hospitalization and eventually discharged after clearance from general surgery after patient symptoms improved. Patient reported that she had of defibrillator shock yesterday, had 1 more shock earlier today leading to fall. Patient reported that she has not had a bowel movement. Patient has not started her home medication. Patient also reported fever and chills, reported abdominal distention, reported abdominal pain is same. Patient denied any headache, sore throat, productive cough, shortness of breath, chest pain, palpitations, dysuria urgency frequency weakness or numbness of extremities. Vitals: Temperature 100.3, heart rate 118, respiratory rate 18, blood pressure 101/62, saturating 94% on room air. Labs: WBCs 13.4, trending down, hemoglobin 11.3, platelets 453, INR 1.1, creatinine 0.49, BUN 16, normal ALT AST alkaline phosphatase and bilirubin. 05/17--patient was seen and examined today. Complaining of abdominal pain, nausea. Patient CT abdomen pelvis overnight showed acute diverticulitis with perforation with worsening pneumoperitoneum, general surgery consulted and following, planning for OR tomorrow as patient received Plavix today. Remains on amiodarone drip per cardiology. Monitor with telemetry. N.p.o., IV fluids, hold Farxiga. 05/18/2024 Patient is currently n.p.o. scheduled to undergo surgical intervention secondary to diverticulitis with perforation with general surgery. Will await surgical report. 05/19/2024 Patient is seen in follow-up this morning status post exploratory laparotomy, diverting colostomy and small bowel resection. Patient ostomy with some blood noted with no bowel activity as of yet. Patient blood pressures are on the lower side and receiving a bolus and will follow-up with repeat labs. Patient with decreased urine output although patient has not been n.p.o. for over 24 hours. White count is elevated although patient remains afebrile and kidney function mildly elevated as well recommend gentle hydration and follow-up on repeat labs. Patient continues with an NG tube for decompression with minimal frothy output noted. Discussed with the patient about ambulating and increasing activity as soon as possible and recommend PT/OT therapy evaluation. Patient also to continue with frequent offloading and position changes as patient is noted to have a stage II sacral decubitus ulcer that was present on admission. 05/20/2024 Patient is seen and evaluated in follow-up this morning with daughter at the bedside having some serous drainage output noted in ostomy. No bowel movement as of yet although patient did report she thought she noticed some air in the ostomy. Patient remains n.p.o. and continues with NG tube for decompression with multiple consultations following. Patient will continue on IV amiodarone and okay to resume IV heparin until tolerating oral intake per surgery to resume. Patient has not been up and walking and recommend PT/OT therapy evaluation and sitting up in the chair more often. Patient is extremely uncomfortable with the NG tube although understands its importance. Continue with mouth swabs frequently to the oral mucosa as it is extremely dry. Kidney function slightly worsened and sodium on the lower side recommend transitioning IV fluids with a decreased rate of D5 and normal saline as opposed to half- normal saline and recommend repeat labs. Urine output is fair and continues with indwelling Duarte catheter. Patient reporting some vaginal discomfort near the catheter and discussed with nursing staff about repositioning and continued Duarte catheter care and management. Blood pressures soft overall stable and will continue current regimen. Cardiology is following as well. 05/21--patient was seen and examined today. Patient had colostomy output, general surgery planning to DC NG tube. Plan to start ice chips and popsicles with slow advancement of diet. Patient currently on Zosyn and Eraxis per infectious disease. Will continue monitor labs. WBCs trending down to 14.5. Hemoglobin stable 9.7. Platelet normal. Sodium 130 potassium 4.3, BUN 32, creatinine 0.90. 05/22/2024--patient was seen and examined today. NG tube is out. Currently on ice chips with popsicles. Reported colostomy output. Vitals unremarkable, afe brile. WBC trending down 12.6. Hemoglobin stable 10.4. Platelet 363. Sodium improved to 136, potassium 3.4, BUN 28, creatinine 1.01. LFTs unremarkable. Cardiology following. Off amiodarone drip, currently on amiodarone 200 mg 3 times daily, metoprolol. Cardiology recommended to uptitrate rate metoprolol as tolerated. 05/23/2024 Patient is seen in follow-up today and is extremely lethargic and being followed by ID and general surgery. Patient wbc is elevated above [address] and ID recommends a CT. General surgery now agreeable and CT abdomen reordered. Foul purulent drainage noted out of the abdomen and cultures obtained and pending. Family requested a hospice informational with Joan. Patient is extremely weak and fatigues easily. Family reports she was hallucinating last night when no one was in the room. Recommend limiting narcotics and out of the bed in the chair more often especially during the day. Brown loose stool noted in the ostomy. REVIEW OF SYSTEMS: CONSTITUTIONAL: No fever or chills. Patient reports feeling lethargic CARDIOVASCULAR: No chest pain, palpitations or syncope. PULMONARY: No shortness of breath, no cough, sore throat. GASTROINTESTINAL: Reports of nausea, no vomiting, no diarrhea, reports continued abdominal tenderness. : No Dysuria, urgency, frequency. Extremities: No edema. NEUROLOGICAL: No headaches, reports extreme weakness PHYSICAL EXAMINATION: GENERAL: The patient is A&O x2, lethargic although arousable, elderly appearing, ill-appearing, obese HEENT: EOMI, Sclerae anicteric, dry Mucous membranes Neck: Supple, Non tender, No JVD PULMONARY: diminshed breath sounds bilaterally, Equal breath souds B/L, No wheezing, No crackles. CARDIOVASCULAR: S1, S2 muffled, irregular, currently controlled ABDOMEN: Tender, less distended. Tenderness and discomfort noted on palpation ostomy noted on the left with some brown stool. foul drainage in the VAUGHN MUSCULOSKELETAL: No edema, No cyanosis. No clubbing. Normal ROM. Intact peripheral pulses. EXTREMITIES: No cyanosis, clubbing, or pedal edema. NEUROLOGICAL: CN 2-12 grossly intact. No FND Skin: No Rash, stage II sacral decubitus ulcer Assessment: Acute diverticulitis with perforation: Worsening pneumoperitoneum with sepsis, present on admission status post exploratory laparotomy, diverting colostomy and small bowel resection Leukocytosis, secondary to above with concerns of abdominal surgical site infection Fevers, present on admission secondary to above, resolved defibrillator shock: With history of CAD status post stent in August [address] Hypertension, currently normotensive Hyperlipidemia Chronic systolic CHF, not in exacerbation, currently euvolemic A-fib with RVR, currently rate controlled Obesity with a BMI 31.0 Stage II sacral decubitus ulcer, present on admission GI prophylaxis DVT prophylaxis Full code Plan: Patient is currently status post exploratory laparotomy, diverting colostomy and small bowel resection with general surgery following ID following and is on abx with concerns of possible surgical site infection as wbc is elevated and there is foul drainage noted, cultures sent and pending Patient is noted to have a stage II sacral decubitus ulcer and recommend zinc barrier paste as well as frequent offloading and Optifoam to the area with position changes every 2 hours Follow-up on labs and replace electrolytes per protocol Family requested a hospice consult and pending. PT/OT therapy to evaluate as patient is significantly weak and not getting up out of bed at all. Encouraged incentive spirometer use at least 10 times every hour while awake. Patient currently maintained on room air and denies shortness of breath. Overall prognosis is extremely guarded The impression and plan of care has been dictated by Lisy Jones, Nurse Practitioner as directed. Dr. Ashlie MD I have performed a history and examination and MDM of this patient, discussed the same with the dictator, and agree with the dictator's assessment and plan as written ,documented as a scribe. Based on total visit time, I have performed more than 50% of the visit. Objective - Vital Signs Vital signs: Vital Signs Temp 98.1 F 05/23/24 08:00 Pulse 89 05/23/24 08:00 Resp 18 05/23/24 08:00 BP 117/73 05/23/24 08:00 Pulse Ox 90 L 05/23/24 08:00 FiO2 Intake & Output 05/22/24 05/23/24 05/23/24 18:59 06:59 18:59 Intake Total 336.236 60 Output Total 580 340 120 Balance -243.764 -280 -120 Intake: IV 60 60 Invasive Line 6 20 20 Invasive Line 7 20 20 Invasive Line 8 20 20 Intake, IV Titration 36.236 Amount Heparin Sod,Pork in 0.45% 36.236 NaCl 25,000 unit In 0.45 % NaCl 1 250ml.bag @ 12 UNITS/KG/HR 9.18 mls/hr IV .Q24H [facility] Rx#: [id number] Oral 240 Output: Drainage 80 40 20 Right Abdomen 80 40 20 Urine 400 300 Stool 100 100 Other: Voiding Method Indwelling Catheter Indwelling Catheter - Labs CBC & Chem 7: 05/23/24 06:07 05/23/24 06:07 Labs: Abnormal Lab Results - Last 24 Hours (Table) 05/23/24 05/23/24 05/23/24 Range/Units 06:07 06:07 06:07 WBC 18.2 H (3.8-10.6) k/uL RBC 3.69 L (3.80-5.40) m/uL Hgb 9.5 L (11.4-16.0) gm/dL Hct 30.3 L (34.0-46.0) % RDW 15.7 H (11.5-15.5) % Neutrophils # 15.9 H (1.3-7.7) k/uL Lymphocytes # 0.5 L (1.0-4.8) k/uL Monocytes # 1.4 H (0-1.0) k/uL APTT 56.3 H (22.0-30.0) sec Chloride 115 H (98-107) mmol/L Carbon Dioxide 17 L (22-30) mmol/L BUN 28 H (7-17) mg/dL Calcium 8.1 L (8.4-10.2) mg/dL Total Protein 4.8 L (6.3-8.2) g/dL Albumin 1.7 L (3.5-5.0) g/dL
[2024-05-24 06:47] LABS: Basophils % (A) 0 %; Eosinophils % (A) 0 %; HCT 30.1 % (34.0-46.0); HGB 9.2 gm/dL (11.4-16.0); Hypochromasia Marked; Lymphocytes # (A) 0.7 k/uL (1.0-4.8); Lymphocytes % (A) 4 %; MCH 25.1 pg (25.0-35.0); MCHC 30.5 g/dL (31.0-37.0); MCV 82.2 fL (80.0-100.0); Mean Platelet Volume 7.8; Monocytes % (A) 6 %; Neutrophils # (A) 16.4 k/uL (1.3-7.7); Neutrophils % (A) 90 %; Platelet Count 285 k/uL (150-450); Poikilocytosis Slight; RBC 3.67 m/uL (3.80-5.40); RDW 15.7 % (11.5-15.5); WBC 18.3 k/uL (3.8-10.6)
[2024-05-24 07:12] LABS: ALT 8 U/L (4-34); AST 20 U/L (14-36); African American GFR (CKD) >90 (>60 ml/min/1.73 sqM); Albumin 1.7 g/dL (3.5-5.0); Alkaline Phosphatase 93 U/L (38-126); Anion Gap 6 mmol/L; Blood Urea Nitrogen 24 mg/dL (7-17); Carbon Dioxide 19 mmol/L (22-30); Chloride 116 mmol/L (98-107); Glucose 97 mg/dL (74-99); Magnesium 1.7 mg/dL (1.6-2.3); Non-African American GFR(CKD) 85 (>60 ml/min/1.73 sqM); Potassium 4.1 mmol/L (3.5-5.1); Sodium 141 mmol/L (137-145); Total Bilirubin 0.7 mg/dL (0.2-1.3)
[2024-05-24] MEDS: METOPROLOL SUCCINATE (ER) 25 MG TAB.ER.24H PO STA (09:52)
--- NOTE | 2024-05-24 11:06 | P.PN ---
Subjective Progress Note Date: 05/24/24 CHIEF COMPLAINT: Perforated diverticulitis HISTORY OF PRESENT ILLNESS: Postop day #6 status post exploratory laparotomy, diverting colostomy and small bowel resection. Patient reports that she is feeling better today. She has had decreased drainage from the incision site and VAUGHN drain. Drainage is still purulent and foul-smelling. VAUGHN drain only with 10 mL output. Dressing changes about 2 times during the night. Patient has CT scan abdomen and pelvis that reported diffuse edema within the subcutaneous tissues of the anterior abdominal wall with postsurgical change. No organizing fluid collection to suggest abscess. Parastomal fat-containing hernia. Mid abdominal phlegmonous change and scattered foci of free air. Midline mesenteric abscess formation likely given free feces in the abdomen on prior exam. Afebrile. Heart rate 102. WBC about the same at 18.3 Hgb 9.2 creatinine 0.70. Infectious disease has added daptomycin. Patient's oral intake has increased slightly. Patient seen and examined with Dr. Valles PHYSICAL EXAM: VITAL SIGNS: Reviewed. GENERAL: no acute distress. ABDOMEN: Soft. Nondistended. Tenderness around incision site. Decrease amount of purulent foul-smelling drainage distal at incision site. VAUGHN drain with purulent output. Neuro patient is more awake and alert. ASSESSMENT: 1. Perforated diverticulitis 2. Low urine output, acute kidney injury. improved 3. Leukocytosis 4. Hypotension improved 5. Abdominal wound infection 6. Possible midline mesenteric abscess formation noted on CT scan PLAN: -Continue to monitor abdominal wound infection -Continue local wound care -Continue antibiotics per ID service -Continue pain management -Continue clear liquids -DVT prophylaxis IV heparin Physician Tracer Bullet Section Supervisor note has been reviewed by physician. Signing provider agrees with the documented findings, assessment, and plan of care. Objective - Vital Signs Vital signs: Vital Signs Temp 98.0 F 05/24/24 08:08 Pulse 102 H 05/24/24 08:08 Resp 20 05/24/24 08:08 BP 121/65 05/24/24 08:08 Pulse Ox 98 05/24/24 08:08 FiO2 Intake & Output 05/23/24 05/24/24 05/24/24 18:59 06:59 18:59 Intake Total 60 273.764 64.094 Output Total 670 1105 Balance -610 -831.236 64.094 Weight 76.5 kg 91.5 kg Intake: IV 60 60 30 Invasive Line 6 20 20 10 Invasive Line 7 20 20 10 Invasive Line 8 20 20 10 Intake, IV Titration 213.764 34.094 Amount Heparin Sod,Pork in 0.45% 213.764 34.094 NaCl 25,000 unit In 0.45 % NaCl 1 250ml.bag @ 12 UNITS/KG/HR 9.18 mls/hr IV .Q24H [facility] Rx#: [id number] Output: Drainage 20 5 Right Abdomen 20 5 Urine 350 400 Stool 300 700 Other: Voiding Method Indwelling Catheter Indwelling Catheter Indwelling Catheter - Labs CBC & Chem 7: 05/24/24 06:19 05/24/24 06:19 Labs: Abnormal Lab Results - Last 24 Hours (Table) 05/24/24 05/24/24 05/24/24 Range/Units 06:19 06:19 06:19 WBC 18.3 H (3.8-10.6) k/uL RBC 3.67 L (3.80-5.40) m/uL Hgb 9.2 L (11.4-16.0) gm/dL Hct 30.1 L (34.0-46.0) % MCHC 30.5 L (31.0-37.0) g/dL RDW 15.7 H (11.5-15.5) % APTT 52.0 H (22.0-30.0) sec Chloride 116 H (98-107) mmol/L Carbon Dioxide 19 L (22-30) mmol/L BUN 24 H (7-17) mg/dL Calcium 8.0 L (8.4-10.2) mg/dL Total Protein 5.0 L (6.3-8.2) g/dL Albumin 1.7 L (3.5-5.0) g/dL Microbiology - Last 24 Hours (Table) 05/23/24 13:06 Gram Stain - Preliminary Abdomen
[2024-05-24 13:44] LABS: INR 2.2 (<1.2); Prothrombin Time 21.7 sec (10.0-12.5)
--- NOTE | 2024-05-24 14:06 | P.PN ---
Subjective Progress Note Date: 05/24/24 HISTORY OF PRESENT ILLNESS: This is a 73-year-old female with a past medical history significant for di verticulitis, coronary artery disease, ischemic cardiomyopathy, hypertension, and hyperlipidemia. Patient follows in the office with Dr. Lopez. We have been asked to see the patient in consultation for defibrillator discharge. Patient examined at the bedside in the emergency room. Patient was admitted last week to the hospital secondary to diverticulitis with microperforation. Patient was treated conservatively and was discharged home on antibiotics. The patient reported back to the hospital with a chief complaint of her ICD firing. She continues to report SOB. She denies chest pain or pressure. DIAGNOSTICS: - EKG reveals paced rhythm with PVCs - Chest xray negative for acute process - Laboratory data: WBC 16.9. Hemoglobin 10.9. Platelet count 425. Sodium 135. Potassium 3.6. BUN 16. Creatinine 0.63. Troponin negative x 3 - Current home cardiac medications include aspirin 81 mg at night, Plavix 75 mg at night, Jardiance 10 mg daily, metoprolol succinate 25 mg daily, spiron olactone 25 mg daily, lisinopril 20 mg twice a day - Most recent echocardiogram obtained in April 2024 revealed ejection fraction 40 to 45%, global hypokinesis, trace aortic regurgitation, trace tricuspid regurgitation, mild mitral regurgitation - Cardiac catheterization history: August 2023 with stenting of the proximal LAD 05/19/2024 Patient is status post exploratory laparotomy, small bowel resection, and diverting colostomy. Patient denies chest pain or pressure. Denies shortness of breath. Telemetry reveals paced rhythm. Patient remains NPO. 05/20/2024 Patient examined this morning at the bedside. Patient denies chest pain or pressure. She denies shortness of breath. She remains NPO. NG tube remains in place. Telemetry reveals atrial fibrillation/paced rhythm. Creatinine today 1.41. 05/21/2024 Patient is slowly improving. NG tube is out, able to tolerate clear liquid diet today. 05/22/24 Patient was noticed to be n.p.o. today again. Patient denies any chest pain chest pressure. Currently in sinus rhythm. 05/23 Patient has had no further discharges of the ICD. He is maintained on heparin drip. Blood pressure 119/62, heart rate 102, pulse ox 96% on 4 L nasal cannula. Repeat blood work reveals hemoglobin 9.5. BUN 28 creatinine 0.91, potassium 4.3. VAUGHN drain remains in place. Patient is currently on a clear liquid diet. 05/24 Patient has been continued on a heparin drip. She is also on IV antibiotics as well as antifungal managed by infectious disease. She remains in atrial fibrillation with a controlled rate. No complaints of chest pain, shortness of breath, palpitations. She did undergo a CAT scan that showed a possible midline mesenteric abscess, general surgery continues to follow. Oral anticoagulation is on hold until cleared by general surgery. PHYSICAL EXAM: VITAL SIGNS: Reviewed. GENERAL: Well-developed in no acute distress. HEENT: Head is normocephalic. Pupils are equal, round. Sclerae anicteric. Mucous membranes of the mouth are moist. Neck supple. No JVD or thyromegaly LUNGS: Respirations even and unlabored. Lungs essentially clear to auscultation bilaterally. HEART: Irregular rate and rhythm. S1 and S2 heard. ABDOMEN: Soft. Tenderness with palpation. EXTREMITIES: Normal range of motion. No clubbing or cyanosis. Peripheral pulses intact. No lower extremity edema NEUROLOGIC: Awake and alert. Oriented x 3. ASSESSMENT: New onset atrial fibrillation, most likely paroxysmal, captured on ICD interrogation Inappropriate ICD discharge x 2, no VT/VF on ICD interrogation Diverticulitis with pneumoperitoneum status post exploratory laparotomy, diverting colostomy and small bowel resection Possible midline mesenteric abscess Acute kidney injury Recent hospitalization for acute diverticulitis with microperforation Coronary artery disease with previous PCI, most recently to proximal LAD in August 2023 Ischemic cardiomyopathy 30% with recent ICD implantation, improved to 4045% Hypertension Hyperlipidemia PLAN: Continue IV heparin drip for now. We will transition to Eliquis once cleared by general surgery. Continue the following cardiac medications: Amiodarone 200 mg 3 times daily, Toprol XL 25 mg daily Further recommendations pending patient course Nurse practitioner note has been reviewed, I agree with documented findings and plan of care. Patient was seen and examined. Objective - Vital Signs Vital signs: Vital Signs Temp 98.0 F 05/24/24 08:08 Pulse 102 H 05/24/24 08:08 Resp 20 05/24/24 08:08 BP 121/65 05/24/24 08:08 Pulse Ox 98 05/24/24 08:08 FiO2 Intake & Output 0905/24/24 05/24/24 18:59 06:59 18:59 Intake Total 60 273.764 64.094 Output Total 670 1105 Balance -610 -831.236 64.094 Weight 76.5 kg 91.5 kg Intake: IV 60 60 30 Invasive Line 6 20 20 10 Invasive Line 7 20 20 10 Invasive Line 8 20 20 10 Intake, IV Titration 213.764 34.094 Amount Heparin Sod,Pork in 0.45% 213.764 34.094 NaCl 25,000 unit In 0.45 % NaCl 1 250ml.bag @ 12 UNITS/KG/HR 9.18 mls/hr IV .Q24H [facility] Rx#: [id number] Output: Drainage 20 5 Right Abdomen 20 5 Urine 350 400 Stool 300 700 Other: Voiding Method Indwelling Catheter Indwelling Catheter - Labs CBC & Chem 7: 05/24/24 06:19 05/24/24 06:19 Labs: Abnormal Lab Results - Last 24 Hours (Table) 05/24/24 05/24/24 Range/Units 06:19 06:19 APTT 52.0 H (22.0-30.0) sec Chloride 116 H (98-107) mmol/L Carbon Dioxide 19 L (22-30) mmol/L BUN 24 H (7-17) mg/dL Calcium 8.0 L (8.4-10.2) mg/dL Total Protein 5.0 L (6.3-8.2) g/dL Albumin 1.7 L (3.5-5.0) g/dL Microbiology - Last 24 Hours (Table) 05/23/24 13:06 Gram Stain - Preliminary Abdomen
[2024-05-24 14:51] LABS: Target Cells Present
--- NOTE | 2024-05-24 15:15 | P.PN ---
Subjective Progress Note Date: 05/23/24 Principal diagnosis: Reason for follow-up is perforated diverticulitis and peritonitis Patient is a 73-year-old female with a past medical history significant for hypertension hyperlipidemia HI atrial fibrillation, patient was recently admitted at this facility and has been diagnosed with a diverticulitis with microperforation pending bed to the hospital with a defibrillator shock with repeat CT abdominal pelvis shows worsening pneumoperitoneum, patient was taken to the OR on 05/18/2024 status post small bowel resection because of adhesion that is and diverting colostomy operative report did not mention any abscess and no culture On today's evaluation that is 05/23/2024, Patient is afebrile patient is currently on 4 L nasal cannula oxygen and denies having any shortness of breath, the patient denies any chest pain or cough, the patient complaining of some steffi sea but no vomiting the patient lower abdominal incision has opened up and is draining some purulent foul-smelling drainage. Patient white count also jumped to 18.2, creatinine 0.91 Objective - Vital Signs Vital signs: Vital Signs Temp 98.1 F 05/23/24 12:00 Pulse 102 H 05/23/24 12:00 Resp 18 05/23/24 12:00 BP 119/62 05/23/24 12:00 Pulse Ox 96 05/23/24 12:00 FiO2 Intake & Output 05/22/24 05/23/24 05/23/24 18:59 06:59 18:59 Intake Total 336.236 60 30 Output Total 580 340 220 Balance -243.764 -280 -190 Weight 76.5 kg Intake: IV 60 60 30 Invasive Line 6 20 20 10 Invasive Line 7 20 20 10 Invasive Line 8 20 20 10 Intake, IV Titration 36.236 Amount Heparin Sod,Pork in 0.45% 36.236 NaCl 25,000 unit In 0.45 % NaCl 1 250ml.bag @ 12 UNITS/KG/HR 9.18 mls/hr IV .Q24H [facility] Rx#: [id number] Oral 240 Output: Drainage 80 40 20 Right Abdomen 80 40 20 Urine 400 300 Stool 100 200 Other: Voiding Method Indwelling Catheter Indwelling Catheter Indwelling Catheter - Exam GENERAL DESCRIPTION: An elderly female lying in bed in no distress RESPIRATORY SYSTEM: Unlabored breathing , decreased breath sounds at bases HEART: S1 S2 regular rate and rhythm , ABDOMEN: Soft , lower midline incision have with foul-smelling drainage which cruz s been cultured EXTREMITIES: No edema feet - Labs CBC & Chem 7: 05/24/24 06:19 05/24/24 06:19 Labs: Abnormal Lab Results - Last 24 Hours (Table) 05/23/24 05/23/24 05/23/24 Range/Units 06:07 06:07 06:07 WBC 18.2 H (3.8-10.6) k/uL RBC 3.69 L (3.80-5.40) m/uL Hgb 9.5 L (11.4-16.0) gm/dL Hct 30.3 L (34.0-46.0) % RDW 15.7 H (11.5-15.5) % Neutrophils # 15.9 H (1.3-7.7) k/uL Lymphocytes # 0.5 L (1.0-4.8) k/uL Monocytes # 1.4 H (0-1.0) k/uL APTT 56.3 H (22.0-30.0) sec Chloride 115 H (98-107) mmol/L Carbon Dioxide 17 L (22-30) mmol/L BUN 28 H (7-17) mg/dL Calcium 8.1 L (8.4-10.2) mg/dL Total Protein 4.8 L (6.3-8.2) g/dL Albumin 1.7 L (3.5-5.0) g/dL Assessment and Plan (1) Intra-abdominal abscess Current Visit: Yes Status: Acute Code(s): K65.1 - PERITONEAL ABSCESS SNOMED Code(s): 38894965 (2) Peritonitis Current Visit: Yes Status: Acute Code(s): K65.9 - PERITONITIS, UNSPECIFIED SNOMED Code(s): 00224349 (3) Perforation of sigmoid colon due to diverticulitis Current Visit: No Status: Acute Code(s): K57.20 - DVTRCLI OF LG INT W PERFORATION AND ABSCESS W/O BLEEDING SNOMED Code(s): 6567383240521516 Plan: 1patient presented to hospital with sepsis in this patient who did have fever tachycardia elevated white count source is complicated diverticulitis now with evidence of pneumoperitoneum and worsening inflammatory changes will need to cover for the enteric gram-negative both aerobes and anaerobes 2-patient is status post laparotomy small bowel resection and diverting colostomyoperative report did not mention any abscess and no culture 3-patient noticed to have worsening of the white count also drainage from the lower end of the incision which has been opened up patient benefit from CT abdominal pelvis discussed with the surgical team as well as admitting team, we will obtain blood cultures local culture has been obtained we will add daptomycin continue with the Eraxis and the Zosyn Multiple family members at bedside questions answered Dictation was produced using [employer] dictation software. please excuse any grammatical, word or spelling errors. Time with Patient: Less than 30
--- NOTE | 2024-05-24 15:16 | P.PN ---
Subjective Progress Note Date: 05/24/24 Principal diagnosis: Reason for follow-up is perforated diverticulitis and peritonitis Patient is a 73-year-old female with a past medical history significant for hypertension hyperlipidemia CT atrial fibrillation, patient was recently admitted at this facility and has been diagnosed with a diverticulitis with microperforation pending bed to the hospital with a defibrillator shock with repeat CT abdominal pelvis shows worsening pneumoperitoneum, patient was taken to the OR on 05/18/2024 status post small bowel resection because of adhesion that is and diverting colostomy operative report did not mention any abscess and no culture On today's evaluation that is 05/24/2024, patient has been afebrile, patient is breathing comfortably and is currently on 4 L current oxygen patient denies having any significant cough no chest pain shortness of breath, patient did have some nausea but mentioned abdominal pain has slightly decreased compared to yesterday no vomiting has been reported. Patient white count is 18.[address] abdominal pelvis did shows di ffuse edema no organizing fluid collection mild abdominal phlegmon changes and scattered foci of free air Objective - Vital Signs Vital signs: Vital Signs Temp 98.0 F 05/24/24 11:47 Pulse 79 05/24/24 11:47 Resp 16 05/24/24 11:47 BP 145/80 05/24/24 11:47 Pulse Ox 98 05/24/24 11:47 FiO2 Intake & Output 05/23/24 05/24/24 05/24/24 18:59 06:59 18:59 Intake Total 60 273.764 64.094 Output Total 670 1105 200 Balance -610 -831.236 -135.906 Weight 76.5 kg 91.5 kg Intake: IV 60 60 30 Invasive Line 6 20 20 10 Invasive Line 7 20 20 10 Invasive Line 8 20 20 10 Intake, IV Titration 213.764 34.094 Amount Heparin Sod,Pork in 0.45% 213.764 34.094 NaCl 25,000 unit In 0.45 % NaCl 1 250ml.bag @ 12 UNITS/KG/HR 9.18 mls/hr IV .Q24H [facility] Rx#: [id number] Output: Drainage 20 5 Right Abdomen 20 5 Urine 350 400 Stool 300 700 200 Other: Voiding Method Indwelling Catheter Indwelling Catheter Indwelling Catheter - Exam GENERAL DESCRIPTION: An elderly female lying in bed in no distress RESPIRATORY SYSTEM: Unlabored breathing , decreased breath sounds at bases HEART: S1 S2 regular rate and rhythm , ABDOMEN: Soft , mild tenderness EXTREMITIES: No edema feet - Labs CBC & Chem 7: 05/24/24 06:19 05/24/24 06:19 Labs: Abnormal Lab Results - Last 24 Hours (Table) 05/24/24 05/24/24 05/24/24 Range/Units 06:19 06:19 06:19 WBC 18.3 H (3.8-10.6) k/uL RBC 3.67 L (3.80-5.40) m/uL Hgb 9.2 L (11.4-16.0) gm/dL Hct 30.1 L (34.0-46.0) % MCHC 30.5 L (31.0-37.0) g/dL RDW 15.7 H (11.5-15.5) % Neutrophils # 16.4 H (1.3-7.7) k/uL Lymphocytes # 0.7 L (1.0-4.8) k/uL PT (10.0-12.5) sec INR (<1.2) APTT 52.0 H (22.0-30.0) sec Chloride 116 H (98-107) mmol/L Carbon Dioxide 19 L (22-30) mmol/L BUN 24 H (7-17) mg/dL Calcium 8.0 L (8.4-10.2) mg/dL Total Protein 5.0 L (6.3-8.2) g/dL Albumin 1.7 L (3.5-5.0) g/dL 05/24/24 Range/Units 13:14 WBC (3.8-10.6) k/uL RBC (3.80-5.40) m/uL Hgb (11.4-16.0) gm/dL Hct (34.0-46.0) % MCHC (31.0-37.0) g/dL RDW (11.5-15.5) % Neutrophils # (1.3-7.7) k/uL Lymphocytes # (1.0-4.8) k/uL PT 21.7 H (10.0-12.5) sec INR 2.2 H (<1.2) APTT (22.0-30.0) sec Chloride (98-107) mmol/L Carbon Dioxide (22-30) mmol/L BUN (7-17) mg/dL Calcium (8.4-10.2) mg/dL Total Protein (6.3-8.2) g/dL Albumin (3.5-5.0) g/dL Microbiology - Last 24 Hours (Table) 05/23/24 13:06 Gram Stain - Preliminary Abdomen Wound Culture - Preliminary Escherichia coli Assessment and Plan (1) Intra-abdominal abscess Current Visit: Yes Status: Acute Code(s): K65.1 - PERITONEAL ABSCESS SNOMED Code(s): 75641682 (2) Peritonitis Current Visit: Yes Status: Acute Code(s): K65.9 - PERITONITIS, UNSPECIFIED SNOMED Code(s): 07059046 (3) Perforation of sigmoid colon due to diverticulitis Current Visit: No Status: Acute Code(s): K57.20 - DVTRCLI OF LG INT W PERFORATION AND ABSCESS W/O BLEEDING SNOMED Code(s): 5613492895658941 Plan: 1patient presented to hospital with sepsis in this patient who did have fever tachycardia elevated white count source is complicated diverticulitis now with evidence of pneumoperitoneum and worsening inflammatory changes will need to cover for the enteric gram-negative both aerobes and anaerobes 2-patient is status post laparotomy small bowel resection and diverting colostomyoperative report did not mention any abscess and no culture 3-patient noticed to have drainage from the lower end of the incision which has been opened up Obtain CT Abdominal Pelvis with Some Phlegmon Changes and Free Air but Did Not Mention Any Abscess Collection 4patient is broadly covered with the daptomycin and Zosyn and Eraxis to continue while waiting for the culture to finalize Family at the bedside questions answered Dictation was produced using [employer] dictation software. please excuse any grammatical, word or spelling errors. Time with Patient: Less than 30
[2024-05-24 21:38] LABS: Glucose,Whole Blood 111 mg/dL (70-110)
--- NOTE | 2024-05-25 05:56 | P.PN ---
Subjective Progress Note Date: 05/24/24 73-year-old female with past medical history significant for atrial fibrillation, AICD in place, ischemic cardiomyopathy with a EF 45%, coronary artery disease status post stenting August 2023, hypertension, hyperlipidemia who presented to ER with a complaint of defibrillator shock. Patient was disch arged yesterday on oral antibiotics Ceftin and Flagyl, when patient was admitted for acute diverticulitis with perforation, infectious disease and general surgery was consulted and patient was continued on medical management during hospitalization and eventually discharged after clearance from general surgery after patient symptoms improved. Patient reported that she had of defibrillator shock yesterday, had 1 more shock earlier today leading to fall. Patient reported that she has not had a bowel movement. Patient has not started her home medication. Patient also reported fever and chills, reported abdominal distention, reported abdominal pain is same. Patient denied any headache, sore throat, productive cough, shortness of breath, chest pain, palpitations, dysuria urgency frequency weakness or numbness of extremities. Vitals: Temperature 100.3, heart rate 118, respiratory rate 18, blood pressure 101/62, saturating 94% on room air. Labs: WBCs 13.4, trending down, hemoglobin 11.3, platelets 453, INR 1.1, creatinine 0.49, BUN 16, normal ALT AST alkaline phosphatase and bilirubin. 05/17--patient was seen and examined today. Complaining of abdominal pain, nausea. Patient CT abdomen pelvis overnight showed acute diverticulitis with perforation with worsening pneumoperitoneum, general surgery consulted and following, planning for OR tomorrow as patient received Plavix today. Remains on amiodarone drip per cardiology. Monitor with telemetry. N.p.o., IV fluids, hold Farxiga. 05/18/2024 Patient is currently n.p.o. scheduled to undergo surgical intervention secondary to diverticulitis with perforation with general surgery. Will await surgical report. 05/19/2024 Patient is seen in follow-up this morning status post exploratory laparotomy, diverting colostomy and small bowel resection. Patient ostomy with some blood noted with no bowel activity as of yet. Patient blood pressures are on the lower side and receiving a bolus and will follow-up with repeat labs. Patient with decreased urine output although patient has not been n.p.o. for over 24 hours. White count is elevated although patient remains afebrile and kidney function mildly elevated as well recommend gentle hydration and follow-up on repeat labs. Patient continues with an NG tube for decompression with minimal frothy output noted. Discussed with the patient about ambulating and increasing activity as soon as possible and recommend PT/OT therapy evaluation. Patient also to continue with frequent offloading and position changes as patient is noted to have a stage II sacral decubitus ulcer that was present on admission. 05/20/2024 Patient is seen and evaluated in follow-up this morning with daughter at the bedside having some serous drainage output noted in ostomy. No bowel movement as of yet although patient did report she thought she noticed some air in the ostomy. Patient remains n.p.o. and continues with NG tube for decompression with multiple consultations following. Patient will continue on IV amiodarone and okay to resume IV heparin until tolerating oral intake per surgery to resume. Patient has not been up and walking and recommend PT/OT therapy evaluation and sitting up in the chair more often. Patient is extremely uncomfortable with the NG tube although understands its importance. Continue with mouth swabs frequently to the oral mucosa as it is extremely dry. Kidney function slightly worsened and sodium on the lower side recommend transitioning IV fluids with a decreased rate of D5 and normal saline as opposed to half- normal saline and recommend repeat labs. Urine output is fair and continues with indwelling Duarte catheter. Patient reporting some vaginal discomfort near the catheter and discussed with nursing staff about repositioning and continued Duarte catheter care and management. Blood pressures soft overall stable and will continue current regimen. Cardiology is following as well. 05/21--patient was seen and examined today. Patient had colostomy output, general surgery planning to DC NG tube. Plan to start ice chips and popsicles with slow advancement of diet. Patient currently on Zosyn and Eraxis per infectious disease. Will continue monitor labs. WBCs trending down to 14.5. Hemoglobin stable 9.7. Platelet normal. Sodium 130 potassium 4.3, BUN 32, creatinine 0.90. 05/22/2024--patient was seen and examined today. NG tube is out. Currently on ice chips with popsicles. Reported colostomy output. Vitals unremarkable, afe brile. WBC trending down 12.6. Hemoglobin stable 10.4. Platelet 363. Sodium improved to 136, potassium 3.4, BUN 28, creatinine 1.01. LFTs unremarkable. Cardiology following. Off amiodarone drip, currently on amiodarone 200 mg 3 times daily, metoprolol. Cardiology recommended to uptitrate rate metoprolol as tolerated. 05/23/2024 Patient is seen in follow-up today and is extremely lethargic and being followed by ID and general surgery. Patient wbc is elevated above [address] ID recommends a CT. General surgery now agreeable and CT abdomen reordered. Foul purulent drainage noted out of the abdomen and cultures obtained and pending. Family requested a hospice informational with Joan. Patient is extremely weak and fatigues easily. Family reports she was hallucinating last night when no one was in the room. Recommend limiting narcotics and out of the bed in the chair more often especially during the day. Brown loose stool noted in the ostomy. 05/24/2024 Patient is seen in follow-up today much more awake and having conversation with family at the bedside. Patient kidney functions are improving and patient appears edematous in upper and lower extremities with significant pitting noted recommend Rocco wraps to bilateral lower extremities and decreasing IV fluids. Patient is maintained on clear liquids and encouraged oral intake. Patient maintained on antibiotics with infectious disease following for abdominal site infection and cultures are pending at this time. Patient continues to have gas and stool noted in the ostomy. REVIEW OF SYSTEMS: CONSTITUTIONAL: No fever or chills. Patient reports feeling lethargic CARDIOVASCULAR: No chest pain, palpitations or syncope. PULMONARY: No shortness of breath, no cough, sore throat. GASTROINTESTINAL: Reports of nausea, no vomiting, no diarrhea, reports continued abdominal tenderness. : No Dysuria, urgency, frequency. Extremities: No edema. NEUROLOGICAL: No headaches, reports extreme weakness and significant swelling PHYSICAL EXAMINATION: GENERAL: The patient is A&O x2, more awake today and alert having conversation, elderly appearing, ill-appearing, obese HEENT: EOMI, Sclerae anicteric, dry Mucous membranes Neck: Supple, Non tender, No JVD PULMONARY: diminshed breath sounds bilaterally, Equal breath souds B/L, No wheezing, No crackles. CARDIOVASCULAR: S1, S2 muffled, irregular, currently controlled ABDOMEN: Tender, less distended. Tenderness and discomfort noted on palpation ostomy noted on the left with some brown stool and gas. MUSCULOSKELETAL: No edema, No cyanosis. No clubbing. Normal ROM. Intact peripheral pulses. EXTREMITIES: No cyanosis, clubbing, or pedal edema. NEUROLOGICAL: CN 2-12 grossly intact. No FND Skin: No Rash, stage II sacral decubitus ulcer Assessment: Acute diverticulitis with perforation: Worsening pneumoperitoneum with sepsis, present on admission status post exploratory laparotomy, diverting colostomy and small bowel resection Leukocytosis, secondary to above with concerns of abdominal surgical site infection Fevers, present on admission secondary to above, resolved defibrillator shock: With history of CAD status post stent in August [address] Hypertension, currently normotensive Hyperlipidemia Chronic systolic CHF, not in exacerbation, currently euvolemic A-fib with RVR, currently rate controlled Obesity with a BMI 31.0 Stage II sacral decubitus ulcer, present on admission GI prophylaxis DVT prophylaxis Full code Plan: Patient is currently status post exploratory laparotomy, diverting colostomy and small bowel resection with general surgery following ID following and is on abx with concerns of possible surgical site infection as wbc remains elevated and there is foul drainage noted, cultures sent and pending Patient is noted to have a stage II sacral decubitus ulcer and recommend zinc barrier paste as well as frequent offloading and Optifoam to the area with position changes every 2 hours Follow-up on labs and replace electrolytes per protocol. Kidney functions improving and recommend decreasing the IV hydration as patient is significantly edematous with upper and lower extremity pitting noted. Recommend Rocco wraps to bilateral lower extremities from the toes up to the knees and may consider a small dose of Lasix. Family requested a hospice consult for informational in the event patient clinically deteriorates PT/OT therapy to evaluate as patient is significantly weak and not getting up out of bed at all. Recommend PT/OT therapy daily Encouraged incentive spirometer use at least 10 times every hour while awake. Patient currently maintained on room air and denies shortness of breath. Overall prognosis is extremely guarded The impression and plan of care has been dictated by Nurse Magdaleno Prac titioner as directed. Dr. Ashlie MD I have performed a history and examination and MDM of this patient, discussed the same with the dictator, and agree with the dictator's assessment and plan as written ,documented as a scribe. Based on total visit time, I have performed more than 50% of the visit. Objective - Vital Signs Vital signs: Vital Signs Temp 98.0 F 05/24/24 11:47 Pulse 79 05/24/24 11:47 Resp 16 05/24/24 11:47 BP 145/80 05/24/24 11:47 Pulse Ox 98 05/24/24 11:47 FiO2 Intake & Output 05/23/24 05/24/24 05/24/24 18:59 06:59 18:59 Intake Total 60 273.764 64.094 Output Total 670 1105 200 Balance -610 -831.236 -135.906 Weight 76.5 kg 91.5 kg Intake: IV 60 60 30 Invasive Line 6 20 20 10 Invasive Line 7 20 20 10 Invasive Line 8 20 20 10 Intake, IV Titration 213.764 34.094 Amount Heparin Sod,Pork in 0.45% 213.764 34.094 NaCl 25,000 unit In 0.45 % NaCl 1 250ml.bag @ 12 UNITS/KG/HR 9.18 mls/hr IV .Q24H [facility] Rx#: [id number] Output: Drainage 20 5 Right Abdomen 20 5 Urine 350 400 Stool 300 700 200 Other: Voiding Method Indwelling Catheter Indwelling Catheter Indwelling Catheter - Labs CBC & Chem 7: 05/24/24 06:19 05/24/24 06:19 Labs: Abnormal Lab Results - Last 24 Hours (Table) 05/24/24 05/24/24 05/24/24 Range/Units 06:19 06:19 06:19 WBC 18.3 H (3.8-10.6) k/uL RBC 3.67 L (3.80-5.40) m/uL Hgb 9.2 L (11.4-16.0) gm/dL Hct 30.1 L (34.0-46.0) % MCHC 30.5 L (31.0-37.0) g/dL RDW 15.7 H (11.5-15.5) % Neutrophils # 16.4 H (1.3-7.7) k/uL Lymphocytes # 0.7 L (1.0-4.8) k/uL PT (10.0-12.5) sec INR (<1.2) APTT 52.0 H (22.0-30.0) sec Chloride 116 H (98-107) mmol/L Carbon Dioxide 19 L (22-30) mmol/L BUN 24 H (7-17) mg/dL Calcium 8.0 L (8.4-10.2) mg/dL Total Protein 5.0 L (6.3-8.2) g/dL Albumin 1.7 L (3.5-5.0) g/dL 05/24/24 Range/Units 13:14 WBC (3.8-10.6) k/uL RBC (3.80-5.40) m/uL Hgb (11.4-16.0) gm/dL Hct (34.0-46.0) % MCHC (31.0-37.0) g/dL RDW (11.5-15.5) % Neutrophils # (1.3-7.7) k/uL Lymphocytes # (1.0-4.8) k/uL PT 21.7 H (10.0-12.5) sec INR 2.2 H (<1.2) APTT (22.0-30.0) sec Chloride (98-107) mmol/L Carbon Dioxide (22-30) mmol/L BUN (7-17) mg/dL Calcium (8.4-10.2) mg/dL Total Protein (6.3-8.2) g/dL Albumin (3.5-5.0) g/dL Microbiology - Last 24 Hours (Table) 05/23/24 13:06 Gram Stain - Preliminary Abdomen Wound Culture - Preliminary Escherichia coli
[2024-05-25 06:18] LABS: Glucose,Whole Blood 116 mg/dL (70-110)
[2024-05-25 09:24] LABS: Basophils % (A) 0 %; Eosinophils % (A) 0 %; HCT 30.7 % (34.0-46.0); HGB 8.9 gm/dL (11.4-16.0); Hypochromasia Marked; Lymphocytes % (A) 7 %; MCH 25.1 pg (25.0-35.0); MCHC 29.1 g/dL (31.0-37.0); MCV 86.3 fL (80.0-100.0); Mean Platelet Volume 7.5; Monocytes # (A) 0.8 k/uL (0-1.0); Monocytes % (A) 6 %; Neutrophils # (A) 11.2 k/uL (1.3-7.7); Neutrophils % (A) 85 %; Platelet Count 237 k/uL (150-450); RBC 3.56 m/uL (3.80-5.40); RDW 15.7 % (11.5-15.5); WBC 13.1 k/uL (3.8-10.6)
[2024-05-25] MEDS: METOPROLOL SUCCINATE (ER) 50 MG TAB.ER.24H PO SCH (09:25)
[2024-05-25 09:29] LABS: African American GFR (CKD) >90 (>60 ml/min/1.73 sqM); Anion Gap 4 mmol/L; Blood Urea Nitrogen 21 mg/dL (7-17); Calcium 8.3 mg/dL (8.4-10.2); Carbon Dioxide 18 mmol/L (22-30); Chloride 118 mmol/L (98-107); Glucose 114 mg/dL (74-99); Magnesium 1.8 mg/dL (1.6-2.3); Non-African American GFR(CKD) >90 (>60 ml/min/1.73 sqM); Potassium 4.7 mmol/L (3.5-5.1); Sodium 140 mmol/L (137-145)
[2024-05-25 11:21] LABS: Glucose,Whole Blood 118 mg/dL (70-110)
--- NOTE | 2024-05-25 12:09 | P.PN ---
Subjective Progress Note Date: 05/25/24 HISTORY OF PRESENT ILLNESS: This is a 73-year-old female with a past medical history significant for di verticulitis, coronary artery disease, ischemic cardiomyopathy, hypertension, and hyperlipidemia. Patient follows in the office with Dr. Lopez. We have been asked to see the patient in consultation for defibrillator discharge. Patient examined at the bedside in the emergency room. Patient was admitted last week to the hospital secondary to diverticulitis with microperforation. Patient was treated conservatively and was discharged home on antibiotics. The patient reported back to the hospital with a chief complaint of her ICD firing. She continues to report SOB. She denies chest pain or pressure. DIAGNOSTICS: - EKG reveals paced rhythm with PVCs - Chest xray negative for acute process - Laboratory data: WBC 16.9. Hemoglobin 10.9. Platelet count 425. Sodium 135. Potassium 3.6. BUN 16. Creatinine 0.63. Troponin negative x 3 - Current home cardiac medications include aspirin 81 mg at night, Plavix 75 mg at night, Jardiance 10 mg daily, metoprolol succinate 25 mg daily, spiron olactone 25 mg daily, lisinopril 20 mg twice a day - Most recent echocardiogram obtained in April 2024 revealed ejection fraction 40 to 45%, global hypokinesis, trace aortic regurgitation, trace tricuspid regurgitation, mild mitral regurgitation - Cardiac catheterization history: August 2023 with stenting of the proximal LAD 05/19/2024 Patient is status post exploratory laparotomy, small bowel resection, and diverting colostomy. Patient denies chest pain or pressure. Denies shortness of breath. Telemetry reveals paced rhythm. Patient remains NPO. 05/20/2024 Patient examined this morning at the bedside. Patient denies chest pain or pressure. She denies shortness of breath. She remains NPO. NG tube remains in place. Telemetry reveals atrial fibrillation/paced rhythm. Creatinine today 1.41. 05/21/2024 Patient is slowly improving. NG tube is out, able to tolerate clear liquid diet today. 05/22/24 Patient was noticed to be n.p.o. today again. Patient denies any chest pain chest pressure. Currently in sinus rhythm. 05/23 Patient has had no further discharges of the ICD. He is maintained on heparin drip. Blood pressure 119/62, heart rate 102, pulse ox 96% on 4 L nasal cannula. Repeat blood work reveals hemoglobin 9.5. BUN 28 creatinine 0.91, potassium 4.3. VAUGHN drain remains in place. Patient is currently on a clear liquid diet. 05/24 Patient has been continued on a heparin drip. She is also on IV antibiotics as well as antifungal managed by infectious disease. She remains in atrial fibrillation with a controlled rate. No complaints of chest pain, shortness of breath, palpitations. She did undergo a CAT scan that showed a possible midline mesenteric abscess, general surgery continues to follow. Oral anticoagulation is on hold until cleared by general surgery. 05/25 Patient remains on a heparin drip. Per general surgery, we are not able to start patient on oral anticoagulations at this time. She has drainage from the wound and on multiple antibiotics and antifungal managed by infectious disease. Telemetry is atrial fibrillation with controlled rate in the 60s to 90s, blood pressure 138/81, pulse ox 97% on 3 L nasal cannula. Repeat blood work reveals hemoglobin 8.9. Creatinine 0.59, BUN 21, CO2 is 18. PHYSICAL EXAM: VITAL SIGNS: Reviewed. GENERAL: Well-developed in no acute distress. HEENT: Head is normocephalic. Pupils are equal, round. Sclerae anicteric. Mucous membranes of the mouth are moist. Neck supple. No JVD or thyromegaly LUNGS: Respirations even and unlabored. Lungs essentially clear to auscultation bilaterally. HEART: Irregular rate and rhythm. S1 and S2 heard. EXTREMITIES: No clubbing or cyanosis. Peripheral pulses intact. No lower extremity edema NEUROLOGIC: Awake and alert. Oriented x 3. 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 We will transition to Eliquis once cleared by general surgery. Continue the following cardiac medications: Amiodarone 200 mg 3 times daily, Toprol XL 50 mg daily Further recommendations pending patient course Nurse practitioner note has been reviewed, I agree with documented findings and plan of care. Patient was seen and examined. Objective - Vital Signs Vital signs: Vital Signs Temp 98.0 F 05/25/24 08:54 Pulse 71 05/25/24 08:54 Resp 16 05/25/24 08:54 BP 138/81 05/25/24 08:54 Pulse Ox 97 05/25/24 08:54 FiO2 Intake & Output 05/24/24 05/25/24 05/25/24 18:59 06:59 18:59 Intake Total 74.094 20 Output Total 610 400 10 Balance -535.906 -380 -10 Weight 91.5 kg Intake: IV 40 20 Invasive Line 10 10 10 Invasive Line 6 10 10 Invasive Line 7 10 Invasive Line 8 10 Intake, IV Titration 34.094 Amount Heparin Sod,Pork in 0.45% 34.094 NaCl 25,000 unit In 0.45 % NaCl 1 250ml.bag @ 12 UNITS/KG/HR 9.18 mls/hr IV .Q24H [facility] Rx#: [id number] Output: Drainage 10 0 10 Right Abdomen 10 0 10 Urine 400 400 Stool 200 Other: Voiding Method Indwelling Catheter Indwelling Catheter Indwelling Catheter - Labs CBC & Chem 7: 05/25/24 08:18 05/25/24 08:18 Labs: Abnormal Lab Results - Last 24 Hours (Table) 05/24/24 05/24/24 05/24/24 Range/Units 06:19 13:14 21:29 WBC (3.8-10.6) k/uL RBC (3.80-5.40) m/uL Hgb (11.4-16.0) gm/dL Hct (34.0-46.0) % MCHC (31.0-37.0) g/dL RDW (11.5-15.5) % Neutrophils # 16.4 H (1.3-7.7) k/uL Lymphocytes # 0.7 L (1.0-4.8) k/uL PT 21.7 H (10.0-12.5) sec INR 2.2 H (<1.2) APTT (22.0-30.0) sec Chloride (98-107) mmol/L Carbon Dioxide (22-30) mmol/L BUN (7-17) mg/dL Glucose (74-99) mg/dL POC Glucose (mg/dL) 111 H (70-110) mg/dL Calcium (8.4-10.2) mg/dL 05/25/24 05/25/24 05/25/24 Range/Units 06:14 08:18 08:18 WBC 13.1 H (3.8-10.6) k/uL RBC 3.56 L (3.80-5.40) m/uL Hgb 8.9 L (11.4-16.0) gm/dL Hct 30.7 L (34.0-46.0) % MCHC 29.1 L (31.0-37.0) g/dL RDW 15.7 H (11.5-15.5) % Neutrophils # 11.2 H (1.3-7.7) k/uL Lymphocytes # (1.0-4.8) k/uL PT (10.0-12.5) sec INR (<1.2) APTT 62.7 H (22.0-30.0) sec Chloride (98-107) mmol/L Carbon Dioxide (22-30) mmol/L BUN (7-17) mg/dL Glucose (74-99) mg/dL POC Glucose (mg/dL) 116 H (70-110) mg/dL Calcium (8.4-10.2) mg/dL 05/25/24 05/25/24 Range/Units 08:18 11:16 WBC (3.8-10.6) k/uL RBC (3.80-5.40) m/uL Hgb (11.4-16.0) gm/dL Hct (34.0-46.0) % MCHC (31.0-37.0) g/dL RDW (11.5-15.5) % Neutrophils # (1.3-7.7) k/uL Lymphocytes # (1.0-4.8) k/uL PT (10.0-12.5) sec INR (<1.2) APTT (22.0-30.0) sec Chloride 118 H (98-107) mmol/L Carbon Dioxide 18 L (22-30) mmol/L BUN 21 H (7-17) mg/dL Glucose 114 H (74-99) mg/dL POC Glucose (mg/dL) 118 H (70-110) mg/dL Calcium 8.3 L (8.4-10.2) mg/dL Microbiology - Last 24 Hours (Table) 05/23/24 13:06 Gram Stain - Final Abdomen Wound Culture - Final Escherichia coli 05/23/24 12:59 Blood Culture - Preliminary Blood
--- NOTE | 2024-05-25 13:30 | P.PN ---
Subjective Progress Note Date: 05/25/24 CHIEF COMPLAINT: Perforated diverticulitis HISTORY OF PRESENT ILLNESS: Postop day #7 status post exploratory laparotomy, diverting colostomy and small bowel resection. Patient reports that she is feeling better. No increase in abdominal pain. Continues to have significant drainage from the incision site. Nursing staff did change the abdominal dressing 6 times throughout yesterday and last night. Afebrile. White count is down from 18-13. Patient seen and examined with Dr. Valles PHYSICAL EXAM: VITAL SIGNS: Reviewed. GENERAL: no acute distress. ABDOMEN: Soft. Nondistended. Tenderness around incision site. Purulent drainage noted from incision site. There is also drainage noted proximal portion of the incision. VAUGHN drain with purulent output. Ostomy with stool present. Neuro patient is more awake and alert. ASSESSMENT: 1. Perforated diverticulitis 2. Low urine output, acute kidney injury. improved 3. Leukocytosis 4. Hypotension improved 5. Abdominal wound infection 6. Possible midline mesenteric abscess formation noted on CT scan PLAN: -Continue to monitor abdominal wound infection -Continue local wound care -Continue antibiotics per ID service -Continue pain management -Advance diet to full liquids -Continue to hold Eliquis -DVT prophylaxis IV heparin Physician Senior Environmental Practice Leader note has been reviewed by physician. Signing provider agrees with the documented findings, assessment, and plan of care. Objective - Vital Signs Vital signs: Vital Signs Temp 97.7 F 05/25/24 12:30 Pulse 77 05/25/24 12:30 Resp 18 05/25/24 12:30 BP 155/78 05/25/24 12:30 Pulse Ox 96 05/25/24 12:30 FiO2 Intake & Output 05/24/24 05/25/24 05/25/24 18:59 06:59 18:59 Intake Total 74.094 20 120 Output Total 610 400 10 Balance -535.906 -380 110 Weight 91.5 kg Intake: IV 40 20 Invasive Line 10 10 10 Invasive Line 6 10 10 Invasive Line 7 10 Invasive Line 8 10 Intake, IV Titration 34.094 Amount Heparin Sod,Pork in 0.45% 34.094 NaCl 25,000 unit In 0.45 % NaCl 1 250ml.bag @ 12 UNITS/KG/HR 9.18 mls/hr IV .Q24H [facility] Rx#: [id number] Oral 120 Output: Drainage 10 0 10 Right Abdomen 10 0 10 Urine 400 400 Stool 200 Other: Voiding Method Indwelling Catheter Indwelling Catheter Indwelling Catheter - Labs CBC & Chem 7: 05/25/24 08:18 05/25/24 08:18 Labs: Abnormal Lab Results - Last 24 Hours (Table) 05/24/24 05/24/24 05/24/24 Range/Units 06:19 13:14 21:29 WBC (3.8-10.6) k/uL RBC (3.80-5.40) m/uL Hgb (11.4-16.0) gm/dL Hct (34.0-46.0) % MCHC (31.0-37.0) g/dL RDW (11.5-15.5) % Neutrophils # 16.4 H (1.3-7.7) k/uL Lymphocytes # 0.7 L (1.0-4.8) k/uL PT 21.7 H (10.0-12.5) sec INR 2.2 H (<1.2) APTT (22.0-30.0) sec Chloride (98-107) mmol/L Carbon Dioxide (22-30) mmol/L BUN (7-17) mg/dL Glucose (74-99) mg/dL POC Glucose (mg/dL) 111 H (70-110) mg/dL Calcium (8.4-10.2) mg/dL 05/25/24 05/25/24 05/25/24 Range/Units 06:14 08:18 08:18 WBC 13.1 H (3.8-10.6) k/uL RBC 3.56 L (3.80-5.40) m/uL Hgb 8.9 L (11.4-16.0) gm/dL Hct 30.7 L (34.0-46.0) % MCHC 29.1 L (31.0-37.0) g/dL RDW 15.7 H (11.5-15.5) % Neutrophils # 11.2 H (1.3-7.7) k/uL Lymphocytes # (1.0-4.8) k/uL PT (10.0-12.5) sec INR (<1.2) APTT 62.7 H (22.0-30.0) sec Chloride (98-107) mmol/L Carbon Dioxide (22-30) mmol/L BUN (7-17) mg/dL Glucose (74-99) mg/dL POC Glucose (mg/dL) 116 H (70-110) mg/dL Calcium (8.4-10.2) mg/dL 05/25/24 05/25/24 Range/Units 08:18 11:16 WBC (3.8-10.6) k/uL RBC (3.80-5.40) m/uL Hgb (11.4-16.0) gm/dL Hct (34.0-46.0) % MCHC (31.0-37.0) g/dL RDW (11.5-15.5) % Neutrophils # (1.3-7.7) k/uL Lymphocytes # (1.0-4.8) k/uL PT (10.0-12.5) sec INR (<1.2) APTT (22.0-30.0) sec Chloride 118 H (98-107) mmol/L Carbon Dioxide 18 L (22-30) mmol/L BUN 21 H (7-17) mg/dL Glucose 114 H (74-99) mg/dL POC Glucose (mg/dL) 118 H (70-110) mg/dL Calcium 8.3 L (8.4-10.2) mg/dL Microbiology - Last 24 Hours (Table) 05/23/24 13:06 Gram Stain - Final Abdomen Wound Culture - Final Escherichia coli 05/23/24 12:59 Blood Culture - Preliminary Blood
[2024-05-25] MEDS: FUROSEMIDE 10 MG/ML 4 ML VIAL IV STA (13:50)
[2024-05-25] MEDS: CITALOPRAM HYDROBROMIDE 20 MG TAB PO SCH (13:50)
[2024-05-25 17:08] LABS: Glucose,Whole Blood 110 mg/dL (70-110)
[2024-05-25 20:28] LABS: Glucose,Whole Blood 105 mg/dL (70-110)
--- NOTE | 2024-05-26 05:33 | P.PN ---
Subjective Progress Note Date: 05/25/24 73-year-old female with past medical history significant for atrial fibrillation, AICD in place, ischemic cardiomyopathy with a EF 45%, coronary artery disease status post stenting August 2023, hypertension, hyperlipidemia who presented to ER with a complaint of defibrillator shock. Patient was disch arged yesterday on oral antibiotics Ceftin and Flagyl, when patient was admitted for acute diverticulitis with perforation, infectious disease and general surgery was consulted and patient was continued on medical management during hospitalization and eventually discharged after clearance from general surgery after patient symptoms improved. Patient reported that she had of defibrillator shock yesterday, had 1 more shock earlier today leading to fall. Patient reported that she has not had a bowel movement. Patient has not started her home medication. Patient also reported fever and chills, reported abdominal distention, reported abdominal pain is same. Patient denied any headache, sore throat, productive cough, shortness of breath, chest pain, palpitations, dysuria urgency frequency weakness or numbness of extremities. Vitals: Temperature 100.3, heart rate 118, respiratory rate 18, blood pressure 101/62, saturating 94% on room air. Labs: WBCs 13.4, trending down, hemoglobin 11.3, platelets 453, INR 1.1, creatinine 0.49, BUN 16, normal ALT AST alkaline phosphatase and bilirubin. 05/17--patient was seen and examined today. Complaining of abdominal pain, nausea. Patient CT abdomen pelvis overnight showed acute diverticulitis with perforation with worsening pneumoperitoneum, general surgery consulted and following, planning for OR tomorrow as patient received Plavix today. Remains on amiodarone drip per cardiology. Monitor with telemetry. N.p.o., IV fluids, hold Farxiga. 05/18/2024 Patient is currently n.p.o. scheduled to undergo surgical intervention secondary to diverticulitis with perforation with general surgery. Will await surgical report. 05/19/2024 Patient is seen in follow-up this morning status post exploratory laparotomy, diverting colostomy and small bowel resection. Patient ostomy with some blood noted with no bowel activity as of yet. Patient blood pressures are on the lower side and receiving a bolus and will follow-up with repeat labs. Patient with decreased urine output although patient has not been n.p.o. for over 24 hours. White count is elevated although patient remains afebrile and kidney function mildly elevated as well recommend gentle hydration and follow-up on repeat labs. Patient continues with an NG tube for decompression with minimal frothy output noted. Discussed with the patient about ambulating and increasing activity as soon as possible and recommend PT/OT therapy evaluation. Patient also to continue with frequent offloading and position changes as patient is noted to have a stage II sacral decubitus ulcer that was present on admission. 05/20/2024 Patient is seen and evaluated in follow-up this morning with daughter at the bedside having some serous drainage output noted in ostomy. No bowel movement as of yet although patient did report she thought she noticed some air in the ostomy. Patient remains n.p.o. and continues with NG tube for decompression with multiple consultations following. Patient will continue on IV amiodarone and okay to resume IV heparin until tolerating oral intake per surgery to resume. Patient has not been up and walking and recommend PT/OT therapy evaluation and sitting up in the chair more often. Patient is extremely uncomfortable with the NG tube although understands its importance. Continue with mouth swabs frequently to the oral mucosa as it is extremely dry. Kidney function slightly worsened and sodium on the lower side recommend transitioning IV fluids with a decreased rate of D5 and normal saline as opposed to half- normal saline and recommend repeat labs. Urine output is fair and continues with indwelling Duarte catheter. Patient reporting some vaginal discomfort near the catheter and discussed with nursing staff about repositioning and continued Duarte catheter care and management. Blood pressures soft overall stable and will continue current regimen. Cardiology is following as well. 05/21--patient was seen and examined today. Patient had colostomy output, general surgery planning to DC NG tube. Plan to start ice chips and popsicles with slow advancement of diet. Patient currently on Zosyn and Eraxis per infectious disease. Will continue monitor labs. WBCs trending down to 14.5. Hemoglobin stable 9.7. Platelet normal. Sodium 130 potassium 4.3, BUN 32, creatinine 0.90. 05/22/2024--patient was seen and examined today. NG tube is out. Currently on ice chips with popsicles. Reported colostomy output. Vitals unremarkable, afe brile. WBC trending down 12.6. Hemoglobin stable 10.4. Platelet 363. Sodium improved to 136, potassium 3.4, BUN 28, creatinine 1.01. LFTs unremarkable. Cardiology following. Off amiodarone drip, currently on amiodarone 200 mg 3 times daily, metoprolol. Cardiology recommended to uptitrate rate metoprolol as tolerated. 05/23/2024 Patient is seen in follow-up today and is extremely lethargic and being followed by ID and general surgery. Patient wbc is elevated above [address] recommends a CT. General surgery now agreeable and CT abdomen reordered. Foul purulent drainage noted out of the abdomen and cultures obtained and pending. Family requested a hospice informational with Joan. Patient is extremely weak and fatigues easily. Family reports she was hallucinating last night when no one was in the room. Recommend limiting narcotics and out of the bed in the chair more often especially during the day. Brown loose stool noted in the ostomy. 05/24/2024 Patient is seen in follow-up today much more awake and having conversation with family at the bedside. Patient kidney functions are improving and patient appears edematous in upper and lower extremities with significant pitting noted recommend Rocco wraps to bilateral lower extremities and decreasing IV fluids. Patient is maintained on clear liquids and encouraged oral intake. Patient maintained on antibiotics with infectious disease following for abdominal site infection and cultures are pending at this time. Patient continues to have gas and stool noted in the ostomy. 05/25/2024 Patient is seen in follow-up today being followed closely with general surgery and infectious disease. Patient is maintained on antibiotics and did have some lower abdominal incision cinda removed with continued persistent drainage note d. Ostomy is functioning with gas and stool and patient is maintained on clear liquid diet attempting to eat. Patient reports to feeling somewhat improved although was having significant swelling as well. Kidney functions have improved and will decrease hydration and give a dose of Lasix. Instructed nursing staff to use Rocco wraps from the toes to the knees and elevate lower extremities. Patient needs PT/OT therapy daily and getting out of the bed daily. Encouraged incentive spirometer use and continue deep breathing. Noted at the bedside concerned with her overall feelings of depression and being overwhelmed with her current medical conditions, will start low-dose antidepressant. REVIEW OF SYSTEMS: CONSTITUTIONAL: No fever or chills. Patient reports feeling lethargic CARDIOVASCULAR: No chest pain, palpitations or syncope. PULMONARY: No shortness of breath, no cough, sore throat. GASTROINTESTINAL: Reports of nausea, no vomiting, no diarrhea, reports continued abdominal tenderness. : No Dysuria, urgency, frequency. Extremities: No edema. NEUROLOGICAL: No headaches, reports extreme weakness and significant swelling PHYSICAL EXAMINATION: GENERAL: The patient is A&O x3, more awake today and alert having conversation, elderly appearing, ill-appearing, obese HEENT: EOMI, Sclerae anicteric, dry Mucous membranes Neck: Supple, Non tender, No JVD PULMONARY: diminshed breath sounds bilaterally, Equal breath souds B/L, No wheezing, No crackles. CARDIOVASCULAR: S1, S2 muffled, irregular, currently controlled ABDOMEN: Tender, less distended. Tenderness and discomfort noted on palpation ostomy noted on the left with some brown stool and gas. MUSCULOSKELETAL: No edema, No cyanosis. No clubbing. Normal ROM. Intact peripheral pulses. EXTREMITIES: No cyanosis, clubbing, bilateral upper and lower extremity swelling with some weeping, 2+ pitting NEUROLOGICAL: CN 2-12 grossly intact. No FND Skin: No Rash, stage II sacral decubitus ulcer Assessment: Acute diverticulitis with perforation: Worsening pneumoperitoneum with sepsis, present on admission status post exploratory laparotomy, diverting colostomy and small bowel resection Leukocytosis, secondary to above with concerns of abdominal surgical site infection, trending down, cultures from the surgical site showing E. coli Fevers, present on admission secondary to above, resolved defibrillator shock: With history of CAD status post stent in August [address] Hypertension, currently normotensive Hyperlipidemia Chronic systolic CHF, not in exacerbation, currently euvolemic A-fib with RVR, currently rate controlled Obesity with a BMI 31.0 Stage II sacral decubitus ulcer, present on admission GI prophylaxis DVT prophylaxis Full code Plan: Patient is currently status post exploratory laparotomy, diverting colostomy and small bowel resection with general surgery following ID following and is on abx with concerns of possible surgical site infection as wbc remains elevated although is trending down and 13 today. Cultures finalized showing E. coli with sensitivities, continued foul drainage noted Patient is noted to have a stage II sacral decubitus ulcer and recommend zinc barrier paste as well as frequent offloading and Optifoam to the area with position changes every 2 hours Follow-up on labs and replace electrolytes per protocol. Kidney functions improving and recommend decreasing the IV hydration as patient is significantly edematous with upper and lower extremity pitting noted. Recommend Rocco wraps to bilateral lower extremities from the toes up to the knees and will give a dose of Lasix today Family requested a hospice consult for informational in the event patient clini bree deteriorates PT/OT therapy to evaluate as patient is significantly weak and not getting up out of bed at all. Recommend PT/OT therapy daily Encouraged incentive spirometer use at least 10 times every hour while awake. Patient currently maintained on room air and denies shortness of breath. Overall prognosis is extremely guarded The impression and plan of care has been dictated by Lisy Jones, Nurse Practitioner as directed. Dr. Ashlie MD I have performed a history and examination and MDM of this patient, discussed the same with the dictator, and agree with the dictator's assessment and plan as written ,documented as a scribe. Based on total visit time, I have performed more than 50% of the visit. Objective - Vital Signs Vital signs: Vital Signs Temp 97.7 F 05/25/24 12:30 Pulse 77 05/25/24 12:30 Resp 18 05/25/24 12:30 BP 155/78 05/25/24 12:30 Pulse Ox 96 05/25/24 12:30 FiO2 Intake & Output 05/24/24 05/25/24 05/25/24 18:59 06:59 18:59 Intake Total 74.094 20 Output Total 610 400 10 Balance -535.906 -380 -10 Weight 91.5 kg Intake: IV 40 20 Invasive Line 10 10 10 Invasive Line 6 10 10 Invasive Line 7 10 Invasive Line 8 10 Intake, IV Titration 34.094 Amount Heparin Sod,Pork in 0.45% 34.094 NaCl 25,000 unit In 0.45 % NaCl 1 250ml.bag @ 12 UNITS/KG/HR 9.18 mls/hr IV .Q24H [facility] Rx#: [id number] Output: Drainage 10 0 10 Right Abdomen 10 0 10 Urine 400 400 Stool 200 Other: Voiding Method Indwelling Catheter Indwelling Catheter Indwelling Catheter - Labs CBC & Chem 7: 05/25/24 08:18 05/25/24 08:18 Labs: Abnormal Lab Results - Last 24 Hours (Table) 05/24/24 05/24/24 05/24/24 Range/Units 06:19 13:14 21:29 WBC (3.8-10.6) k/uL RBC (3.80-5.40) m/uL Hgb (11.4-16.0) gm/dL Hct (34.0-46.0) % MCHC (31.0-37.0) g/dL RDW (11.5-15.5) % Neutrophils # 16.4 H (1.3-7.7) k/uL Lymphocytes # 0.7 L (1.0-4.8) k/uL PT 21.7 H (10.0-12.5) sec INR 2.2 H (<1.2) APTT (22.0-30.0) sec Chloride (98-107) mmol/L Carbon Dioxide (22-30) mmol/L BUN (7-17) mg/dL Glucose (74-99) mg/dL POC Glucose (mg/dL) 111 H (70-110) mg/dL Calcium (8.4-10.2) mg/dL 05/25/24 05/25/24 05/25/24 Range/Units 06:14 08:18 08:18 WBC 13.1 H (3.8-10.6) k/uL RBC 3.56 L (3.80-5.40) m/uL Hgb 8.9 L (11.4-16.0) gm/dL Hct 30.7 L (34.0-46.0) % MCHC 29.1 L (31.0-37.0) g/dL RDW 15.7 H (11.5-15.5) % Neutrophils # 11.2 H (1.3-7.7) k/uL Lymphocytes # (1.0-4.8) k/uL PT (10.0-12.5) sec INR (<1.2) APTT 62.7 H (22.0-30.0) sec Chloride (98-107) mmol/L Carbon Dioxide (22-30) mmol/L BUN (7-17) mg/dL Glucose (74-99) mg/dL POC Glucose (mg/dL) 116 H (70-110) mg/dL Calcium (8.4-10.2) mg/dL 05/25/24 05/25/24 Range/Units 08:18 11:16 WBC (3.8-10.6) k/uL RBC (3.80-5.40) m/uL Hgb (11.4-16.0) gm/dL Hct (34.0-46.0) % MCHC (31.0-37.0) g/dL RDW (11.5-15.5) % Neutrophils # (1.3-7.7) k/uL Lymphocytes # (1.0-4.8) k/uL PT (10.0-12.5) sec INR (<1.2) APTT (22.0-30.0) sec Chloride 118 H (98-107) mmol/L Carbon Dioxide 18 L (22-30) mmol/L BUN 21 H (7-17) mg/dL Glucose 114 H (74-99) mg/dL POC Glucose (mg/dL) 118 H (70-110) mg/dL Calcium 8.3 L (8.4-10.2) mg/dL Microbiology - Last 24 Hours (Table) 05/23/24 13:06 Gram Stain - Final Abdomen Wound Culture - Final Escherichia coli 05/23/24 12:59 Blood Culture - Preliminary Blood
[2024-05-26 06:14] LABS: Glucose,Whole Blood 84 mg/dL (70-110)
[2024-05-26 08:37] LABS: Basophils % (A) 0 %; Eosinophils % (A) 0 %; HCT 30.5 % (34.0-46.0); Hypochromasia Marked; Lymphocytes # (A) 0.7 k/uL (1.0-4.8); Lymphocytes % (A) 7 %; MCH 24.6 pg (25.0-35.0); MCHC 29.6 g/dL (31.0-37.0); MCV 83.2 fL (80.0-100.0); Mean Platelet Volume 7.4; Monocytes # (A) 0.6 k/uL (0-1.0); Monocytes % (A) 6 %; Neutrophils % (A) 86 %; Platelet Count 248 k/uL (150-450); RBC 3.67 m/uL (3.80-5.40); RDW 15.6 % (11.5-15.5); WBC 10.5 k/uL (3.8-10.6)
--- NOTE | 2024-05-26 08:40 | P.PN ---
Subjective Progress Note Date: 05/25/24 Principal diagnosis: Reason for follow-up is perforated diverticulitis and peritonitis Patient is a 73-year-old female with a past medical history significant for hypertension hyperlipidemia [place] atrial fibrillation, patient was recently admitted at this facility and has been diagnosed with a diverticulitis with microperforation pending bed to the hospital with a defibrillator shock with repeat CT abdominal pelvis shows worsening pneumoperitoneum, patient was taken to the OR on 05/18/2024 status post small bowel resection because of adhesion that is and diverting colostomy operative report did not mention any abscess and no culture On today's evaluation that is 05/25/2024, Patient is afebrile this morning patient denies having any chest pain shortness of breath, occasional cough, the patient is breathing comfortably and currently on 2 L current oxygen patient a bdominal pain has decreased in intensity , some nausea but no vomiting Patient white count is down to 13.1 , Cr 0.59 Objective - Vital Signs Vital signs: Vital Signs Temp 97.7 F 05/25/24 12:30 Pulse 77 05/25/24 12:30 Resp 18 05/25/24 12:30 BP 155/78 05/25/24 12:30 Pulse Ox 96 05/25/24 12:30 FiO2 Intake & Output 05/24/24 05/25/24 05/25/24 18:59 06:59 18:59 Intake Total 74.094 20 Output Total 610 400 10 Balance -535.906 -380 -10 Weight 91.5 kg Intake: IV 40 20 Invasive Line 10 10 10 Invasive Line 6 10 10 Invasive Line 7 10 Invasive Line 8 10 Intake, IV Titration 34.094 Amount Heparin Sod,Pork in 0.45% 34.094 NaCl 25,000 unit In 0.45 % NaCl 1 250ml.bag @ 12 UNITS/KG/HR 9.18 mls/hr IV .Q24H [facility] Rx#: [id number] Output: Drainage 10 0 10 Right Abdomen 10 0 10 Urine 400 400 Stool 200 Other: Voiding Method Indwelling Catheter Indwelling Catheter Indwelling Catheter - Exam GENERAL DESCRIPTION: An elderly female lying in bed in no distress RESPIRATORY SYSTEM: Unlabored breathing , decreased breath sounds at bases HEART: S1 S2 regular rate and rhythm , ABDOMEN: Soft , mild tenderness EXTREMITIES: No edema feet - Labs CBC & Chem 7: 05/25/24 08:18 09/11/24 08:18 Labs: Abnormal Lab Results - Last 24 Hours (Table) 05/24/24 05/24/24 05/24/24 Range/Units 06:19 13:14 21:29 WBC (3.8-10.6) k/uL RBC (3.80-5.40) m/uL Hgb (11.4-16.0) gm/dL Hct (34.0-46.0) % MCHC (31.0-37.0) g/dL RDW (11.5-15.5) % Neutrophils # 16.4 H (1.3-7.7) k/uL Lymphocytes # 0.7 L (1.0-4.8) k/uL PT 21.7 H (10.0-12.5) sec INR 2.2 H (<1.2) APTT (22.0-30.0) sec Chloride (98-107) mmol/L Carbon Dioxide (22-30) mmol/L BUN (7-17) mg/dL Glucose (74-99) mg/dL POC Glucose (mg/dL) 111 H (70-110) mg/dL Calcium (8.4-10.2) mg/dL 05/25/24 05/25/24 05/25/24 Range/Units 06:14 08:18 08:18 WBC 13.1 H (3.8-10.6) k/uL RBC 3.56 L (3.80-5.40) m/uL Hgb 8.9 L (11.4-16.0) gm/dL Hct 30.7 L (34.0-46.0) % MCHC 29.1 L (31.0-37.0) g/dL RDW 15.7 H (11.5-15.5) % Neutrophils # 11.2 H (1.3-7.7) k/uL Lymphocytes # (1.0-4.8) k/uL PT (10.0-12.5) sec INR (<1.2) APTT 62.7 H (22.0-30.0) sec Chloride (98-107) mmol/L Carbon Dioxide (22-30) mmol/L BUN (7-17) mg/dL Glucose (74-99) mg/dL POC Glucose (mg/dL) 116 H (70-110) mg/dL Calcium (8.4-10.2) mg/dL 05/25/24 05/25/24 Range/Units 08:18 11:16 WBC (3.8-10.6) k/uL RBC (3.80-5.40) m/uL Hgb (11.4-16.0) gm/dL Hct (34.0-46.0) % MCHC (31.0-37.0) g/dL RDW (11.5-15.5) % Neutrophils # (1.3-7.7) k/uL Lymphocytes # (1.0-4.8) k/uL PT (10.0-12.5) sec INR (<1.2) APTT (22.0-30.0) sec Chloride 118 H (98-107) mmol/L Carbon Dioxide 18 L (22-30) mmol/L BUN 21 H (7-17) mg/dL Glucose 114 H (74-99) mg/dL POC Glucose (mg/dL) 118 H (70-110) mg/dL Calcium 8.3 L (8.4-10.2) mg/dL Microbiology - Last 24 Hours (Table) 05/23/24 13:06 Gram Stain - Final Abdomen Wound Culture - Final Escherichia coli 05/23/24 12:59 Blood Culture - Preliminary Blood Assessment and Plan (1) Intra-abdominal abscess Current Visit: Yes Status: Acute Code(s): K65.1 - PERITONEAL ABSCESS SNOMED Code(s): 48403558 (2) Peritonitis Current Visit: Yes Status: Acute Code(s): K65.9 - PERITONITIS, UNSPECIFIED SNOMED Code(s): 42257670 (3) Perforation of sigmoid colon due to diverticulitis Current Visit: No Status: Acute Code(s): K57.20 - DVTRCLI OF LG INT W PERFORATION AND ABSCESS W/O BLEEDING SNOMED Code(s): 8249320359698552 Plan: 1patient presented to hospital with sepsis in this patient who did have fever tachycardia elevated white count source is complicated diverticulitis now with evidence of pneumoperitoneum and worsening inflammatory changes will need to cover for the enteric gram-negative both aerobes and anaerobes 2-patient is status post laparotomy small bowel resection and diverting colostomyoperative report did not mention any abscess and no culture 3-patient noticed to have drainage from the lower end of the incision which has been opened up Obtain CT Abdominal Pelvis with Some Phlegmon Changes and Free Air but Did Not Mention Any Abscess Collection 4patient wbc is treanding down will continue treatment with the daptomycin and Zosyn and Eraxis to continue while waiting for the culture to finalize Family at the bedside questions answered Dictation was produced using [employer] dictation software. please excuse any grammatical, word or spelling errors. Time with Patient: Less than 30
[2024-05-26 09:00] LABS: African American GFR (CKD) >90 (>60 ml/min/1.73 sqM); Anion Gap 7 mmol/L; Blood Urea Nitrogen 17 mg/dL (7-17); Calcium 8.3 mg/dL (8.4-10.2); Carbon Dioxide 20 mmol/L (22-30); Chloride 113 mmol/L (98-107); Glucose 94 mg/dL (74-99); Non-African American GFR(CKD) >90 (>60 ml/min/1.73 sqM); Potassium 4.2 mmol/L (3.5-5.1); Sodium 140 mmol/L (137-145)
[2024-05-26 11:49] LABS: Glucose,Whole Blood 96 mg/dL (70-110)
--- NOTE | 2024-05-26 12:27 | P.PN ---
Subjective Progress Note Date: 05/26/24 Principal diagnosis: Reason for follow-up is perforated diverticulitis and peritonitis Patient is a 73-year-old female with a past medical history significant for hypertension hyperlipidemia [place] atrial fibrillation, patient was recently admitted at this facility and has been diagnosed with a diverticulitis with microperforation pending bed to the hospital with a defibrillator shock with repeat CT abdominal pelvis shows worsening pneumoperitoneum, patient was taken to the OR on 05/18/2024 status post small bowel resection because of adhesion that is and diverting colostomy operative report did not mention any abscess and no culture On today's evaluation that is 05/26/2024,the patient denies any fever or any chills, patient is breathing comfortably on 2 L current oxygen, the patient denies chest pain shortness of breath and no significant cough, patient abdomin al pain has decreased intensity some nausea but no vomiting did have output in her colostomy bag. Patient white count normalized to 10.5, creatinine 0.55 abdominal culture growing E. coli and Bacteroides Objective - Vital Signs Vital signs: Vital Signs Temp 98.2 F 05/26/24 11:29 Pulse 83 05/26/24 11:29 Resp 18 05/26/24 11:29 BP 120/90 05/26/24 11:29 Pulse Ox 98 05/26/24 08:10 FiO2 Intake & Output 05/25/24 05/26/24 05/26/24 18:59 06:59 18:59 Intake Total 150 235.906 Output Total 2310 1205 0 Balance -2160 -969.094 0 Weight 91.5 kg 90 kg Intake: IV 30 20 Invasive Line 1 10 10 Invasive Line 10 10 10 Invasive Line 6 10 Intake, IV Titration 215.906 Amount Heparin Sod,Pork in 0.45% 215.906 NaCl 25,000 unit In 0.45 % NaCl 1 250ml.bag @ 12 UNITS/KG/HR 9.18 mls/hr IV .Q24H [facility] Rx#: [id number] Oral 120 Output: Drainage 10 5 0 Right Abdomen 10 5 0 Urine 2300 1200 Uretheral ([place]) 1000 Other: Voiding Method Indwelling Catheter Indwelling Catheter Indwelling Catheter - Exam GENERAL DESCRIPTION: An elderly female lying in bed in no distress RESPIRATORY SYSTEM: Unlabored breathing , decreased breath sounds at bases HEART: S1 S2 regular rate and rhythm , ABDOMEN: Soft , mild tenderness EXTREMITIES: No edema feet - Labs CBC & Chem 7: 05/26/24 08:02 05/26/24 08:02 Labs: Abnormal Lab Results - Last 24 Hours (Table) 05/26/24 05/26/24 05/26/24 Range/Units 08:02 08:02 08:02 RBC 3.67 L (3.80-5.40) m/uL Hgb 9.0 L (11.4-16.0) gm/dL Hct 30.5 L (34.0-46.0) % MCH 24.6 L (25.0-35.0) pg MCHC 29.6 L (31.0-37.0) g/dL RDW 15.6 H (11.5-15.5) % Neutrophils # 9.0 H (1.3-7.7) k/uL Lymphocytes # 0.7 L (1.0-4.8) k/uL APTT 48.5 H (22.0-30.0) sec Chloride 113 H (98-107) mmol/L Carbon Dioxide 20 L (22-30) mmol/L Calcium 8.3 L (8.4-10.2) mg/dL Microbiology - Last 24 Hours (Table) 05/23/24 12:59 Blood Culture - Preliminary Blood 05/23/24 13:06 Anaerobic Culture - Preliminary Abdomen Bacteroides thetaiotaomicron 05/23/24 13:06 Gram Stain - Final Abdomen Wound Culture - Final Escherichia coli Assessment and Plan (1) Intra-abdominal abscess Current Visit: Yes Status: Acute Code(s): K65.1 - PERITONEAL ABSCESS SNOMED Code(s): 72565505 (2) Peritonitis Current Visit: Yes Status: Acute Code(s): K65.9 - PERITONITIS, UNSPECIFIED SNOMED Code(s): 80239048 (3) Perforation of sigmoid colon due to diverticulitis Current Visit: No Status: Acute Code(s): K57.20 - DVTRCLI OF LG INT W PERFORATION AND ABSCESS W/O BLEEDING SNOMED Code(s): 4437681382711542 Plan: 1patient presented to hospital with sepsis in this patient who did have fever tachycardia elevated white count source is complicated diverticulitis now with evidence of pneumoperitoneum and worsening inflammatory changes will need to cov er for the enteric gram-negative both aerobes and anaerobes 2-patient is status post laparotomy small bowel resection and diverting colostomyoperative report did not mention any abscess and no culture 3-patient noticed to have drainage from the lower end of the incision which has been opened up Obtain CT Abdominal Pelvis with Some Phlegmon Changes and Free Air but Did Not Mention Any Abscess Collection 4patient white count has normalized abdominal culture growing E. coli and bacteroids continue with Zosyn discontinue Eraxis and daptomycin Dictation was produced using [employer] dictation software. please excuse any grammatical, word or spelling errors. Time with Patient: Less than 30
--- NOTE | 2024-05-26 15:23 | P.PN ---
Subjective Progress Note Date: 05/26/24 CHIEF COMPLAINT: Perforated diverticulitis HISTORY OF PRESENT ILLNESS: Postop day #8 status post exploratory laparotomy, diverting colostomy and small bowel resection. Patient lying in bed comfortably. She has not really been out of bed. Ostomy is functioning. She continues to have drainage from the incision site. Dressing changed twice yesterday. VUAGHN drain no new output. There is minimal purulent output in the drain that is old. Afebrile. WBC normalized at 10.5. down from 13.1 PHYSICAL EXAM: VITAL SIGNS: Reviewed. GENERAL: no acute distress. ABDOMEN: Soft. Nondistended. Drainage at the top of the incision. Continues to have purulent drainage from the distal aspect of the incision. Ostomy functioning. Neuro patient is more awake and alert. ASSESSMENT: 1. Perforated diverticulitis 2. Low urine output, acute kidney injury. improved 3. Leukocytosis 4. Hypotension improved 5. Abdominal wound infection 6. Possible midline mesenteric abscess formation noted on CT scan PLAN: -2 cinda removed from the proximal portion of the abdominal incision. Small amount of purulent drainage removed -Continue to monitor abdominal wound infection -Continue local wound care -Continue antibiotics per ID service -Continue pain management -Advance diet to full liquids -Okay to resume Eliquis -Encourage patient to work with physical therapy -Speech therapy consulted due to patient having difficulty swallowing pills. Family requesting. -community manager arranging ECF placement at discharge Physician Beam Worker note has been reviewed by physician. Signing provider agrees with the documented findings, assessment, and plan of care. Objective - Vital Signs Vital signs: Vital Signs Temp 98.2 F 05/26/24 11:29 Pulse 83 05/26/24 11:29 Resp 18 05/26/24 11:29 BP 120/90 05/26/24 11:29 Pulse Ox 98 05/26/24 08:10 FiO2 Intake & Output 05/25/24 05/26/24 05/26/24 18:59 06:59 18:59 Intake Total 150 235.906 Output Total 2310 1205 0 Balance -2160 -969.094 0 Weight 91.5 kg 90 kg Intake: IV 30 20 Invasive Line 1 10 10 Invasive Line 10 10 10 Invasive Line 6 10 Intake, IV Titration 215.906 Amount Heparin Sod,Pork in 0.45% 215.906 NaCl 25,000 unit In 0.45 % NaCl 1 250ml.bag @ 12 UNITS/KG/HR 9.18 mls/hr IV .Q24H [facility] Rx#: [id number] Oral 120 Output: Drainage 10 5 0 Right Abdomen 10 5 0 Urine 2300 1200 Uretheral (Duarte) 1000 Other: Voiding Method Indwelling Catheter Indwelling Catheter Indwelling Catheter - Labs CBC & Chem 7: 05/26/24 08:02 05/26/24 08:02 Labs: Abnormal Lab Results - Last 24 Hours (Table) 05/26/24 05/26/24 05/26/24 Range/Units 08:02 08:02 08:02 RBC 3.67 L (3.80-5.40) m/uL Hgb 9.0 L (11.4-16.0) gm/dL Hct 30.5 L (34.0-46.0) % MCH 24.6 L (25.0-35.0) pg MCHC 29.6 L (31.0-37.0) g/dL RDW 15.6 H (11.5-15.5) % Neutrophils # 9.0 H (1.3-7.7) k/uL Lymphocytes # 0.7 L (1.0-4.8) k/uL APTT 48.5 H (22.0-30.0) sec Chloride 113 H (98-107) mmol/L Carbon Dioxide 20 L (22-30) mmol/L Calcium 8.3 L (8.4-10.2) mg/dL Microbiology - Last 24 Hours (Table) 05/23/24 12:59 Blood Culture - Preliminary Blood 05/23/24 13:06 Anaerobic Culture - Preliminary Abdomen Bacteroides thetaiotaomicron
[2024-05-26 16:22] LABS: Glucose,Whole Blood 94 mg/dL (70-110)
[2024-05-26 20:24] LABS: Glucose,Whole Blood 103 mg/dL (70-110)
[2024-05-27 06:12] LABS: Glucose,Whole Blood 104 mg/dL (70-110)
--- NOTE | 2024-05-27 06:51 | P.PN ---
Subjective Progress Note Date: 05/26/24 73-year-old female with past medical history significant for atrial fibrillation, AICD in place, ischemic cardiomyopathy with a EF 45%, coronary artery disease status post stenting August 2023, hypertension, hyperlipidemia who presented to ER with a complaint of defibrillator shock. Patient was disch arged yesterday on oral antibiotics Ceftin and Flagyl, when patient was admitted for acute diverticulitis with perforation, infectious disease and general surgery was consulted and patient was continued on medical management during hospitalization and eventually discharged after clearance from general surgery after patient symptoms improved. Patient reported that she had of defibrillator shock yesterday, had 1 more shock earlier today leading to fall. Patient reported that she has not had a bowel movement. Patient has not started her home medication. Patient also reported fever and chills, reported abdominal distention, reported abdominal pain is same. Patient denied any headache, sore throat, productive cough, shortness of breath, chest pain, palpitations, dysuria urgency frequency weakness or numbness of extremities. Vitals: Temperature 100.3, heart rate 118, respiratory rate 18, blood pressure 101/62, saturating 94% on room air. Labs: WBCs 13.4, trending down, hemoglobin 11.3, platelets 453, INR 1.1, creatinine 0.49, BUN 16, normal ALT AST alkaline phosphatase and bilirubin. 05/17--patient was seen and examined today. Complaining of abdominal pain, nausea. Patient CT abdomen pelvis overnight showed acute diverticulitis with perforation with worsening pneumoperitoneum, general surgery consulted and following, planning for OR tomorrow as patient received Plavix today. Remains on amiodarone drip per cardiology. Monitor with telemetry. N.p.o., IV fluids, hold Farxiga. 05/18/2024 Patient is currently n.p.o. scheduled to undergo surgical intervention secondary to diverticulitis with perforation with general surgery. Will await surgical report. 05/19/2024 Patient is seen in follow-up this morning status post exploratory laparotomy, diverting colostomy and small bowel resection. Patient ostomy with some blood noted with no bowel activity as of yet. Patient blood pressures are on the lower side and receiving a bolus and will follow-up with repeat labs. Patient with decreased urine output although patient has not been n.p.o. for over 24 hours. White count is elevated although patient remains afebrile and kidney function mildly elevated as well recommend gentle hydration and follow-up on repeat labs. Patient continues with an NG tube for decompression with minimal frothy output noted. Discussed with the patient about ambulating and increasing activity as soon as possible and recommend PT/OT therapy evaluation. Patient also to continue with frequent offloading and position changes as patient is noted to have a stage II sacral decubitus ulcer that was present on admission. 05/20/2024 Patient is seen and evaluated in follow-up this morning with daughter at the bedside having some serous drainage output noted in ostomy. No bowel movement as of yet although patient did report she thought she noticed some air in the ostomy. Patient remains n.p.o. and continues with NG tube for decompression with multiple consultations following. Patient will continue on IV amiodarone and okay to resume IV heparin until tolerating oral intake per surgery to resume. Patient has not been up and walking and recommend PT/OT therapy evaluation and sitting up in the chair more often. Patient is extremely uncomfortable with the NG tube although understands its importance. Continue with mouth swabs frequently to the oral mucosa as it is extremely dry. Kidney function slightly worsened and sodium on the lower side recommend transitioning IV fluids with a decreased rate of D5 and normal saline as opposed to half- normal saline and recommend repeat labs. Urine output is fair and continues with indwelling Duarte catheter. Patient reporting some vaginal discomfort near the catheter and discussed with nursing staff about repositioning and continued Duarte catheter care and management. Blood pressures soft overall stable and will continue current regimen. Cardiology is following as well. 05/21--patient was seen and examined today. Patient had colostomy output, general surgery planning to DC NG tube. Plan to start ice chips and popsicles with slow advancement of diet. Patient currently on Zosyn and Eraxis per infectious disease. Will continue monitor labs. WBCs trending down to 14.5. Hemoglobin stable 9.7. Platelet normal. Sodium 130 potassium 4.3, BUN 32, creatinine 0.90. 05/22/2024--patient was seen and examined today. NG tube is out. Currently on ice chips with popsicles. Reported colostomy output. Vitals unremarkable, afe brile. WBC trending down 12.6. Hemoglobin stable 10.4. Platelet 363. Sodium improved to 136, potassium 3.4, BUN 28, creatinine 1.01. LFTs unremarkable. Cardiology following. Off amiodarone drip, currently on amiodarone 200 mg 3 times daily, metoprolol. Cardiology recommended to uptitrate rate metoprolol as tolerated. 05/23/2024 Patient is seen in follow-up today and is extremely lethargic and being followed by ID and general surgery. Patient wbc is elevated above [address] recommends a CT. General surgery now agreeable and CT abdomen reordered. Foul purulent drainage noted out of the abdomen and cultures obtained and pending. Family requested a hospice informational with Joan. Patient is extremely weak and fatigues easily. Family reports she was hallucinating last night when no one was in the room. Recommend limiting narcotics and out of the bed in the chair more often especially during the day. Brown loose stool noted in the ostomy. 05/24/2024 Patient is seen in follow-up today much more awake and having conversation with family at the bedside. Patient kidney functions are improving and patient appears edematous in upper and lower extremities with significant pitting noted recommend Rocco wraps to bilateral lower extremities and decreasing IV fluids. Patient is maintained on clear liquids and encouraged oral intake. Patient maintained on antibiotics with infectious disease following for abdominal site infection and cultures are pending at this time. Patient continues to have gas and stool noted in the ostomy. 05/25/2024 Patient is seen in follow-up today being followed closely with general surgery and infectious disease. Patient is maintained on antibiotics and did have some lower abdominal incision cinda removed with continued persistent drainage note d. Ostomy is functioning with gas and stool and patient is maintained on clear liquid diet attempting to eat. Patient reports to feeling somewhat improved although was having significant swelling as well. Kidney functions have improved and will decrease hydration and give a dose of Lasix. Instructed nursing staff to use Rocco wraps from the toes to the knees and elevate lower extremities. Patient needs PT/OT therapy daily and getting out of the bed daily. Encouraged incentive spirometer use and continue deep breathing. Noted at the bedside concerned with her overall feelings of depression and being overwhelmed with her current medical conditions, will start low-dose antidepressant. 05/26/2024 Patient is seen in follow-up today currently attempting to work with physical therapy. Patient is a heavy 2 person assist and will most definitely require ECF on discharge. Cultures from abdominal wound site infection revealing E. coli and patient is maintained on Zosyn with infectious disease following. Patient continues to have some volume overload of upper and lower extremities and will give another dose of IV Lasix and monitor. Kidney functions have improved. Patient per surgery okay to be placed on anticoagulation orally and discontinue heparin drip. REVIEW OF SYSTEMS: CONSTITUTIONAL: No fever or chills. Patient reports feeling lethargic CARDIOVASCULAR: No chest pain, palpitations or syncope. PULMONARY: Reports of intermittent shortness of breath, no cough, sore throat. GASTROINTESTINAL: Reports of occasional nausea, no vomiting, no diarrhea, reports continued abdominal tenderness. And not much of an appetite : No Dysuria, urgency, frequency. Extremities: No edema. NEUROLOGICAL: No headaches, reports extreme weakness and significant swelling PHYSICAL EXAMINATION: GENERAL: The patient is A&O x3, awake and alert having conversation, elderly appearing, ill-appearing, obese HEENT: EOMI, Sclerae anicteric, dry Mucous membranes Neck: Supple, Non tender, No JVD PULMONARY: diminshed breath sounds bilaterally, Equal breath souds B/L, No wheezing, No crackles. CARDIOVASCULAR: S1, S2 muffled, irregular, currently controlled ABDOMEN: Tender, less distended. Tenderness and discomfort noted on palpation ostomy noted on the left with some brown stool and gas. MUSCULOSKELETAL: No edema, No cyanosis. No clubbing. Normal ROM. Intact peripheral pulses. EXTREMITIES: No cyanosis, clubbing, bilateral upper and lower extremity swelling with some weeping, 2+ pitting NEUROLOGICAL: CN 2-12 grossly intact. No FND Skin: No Rash, stage II sacral decubitus ulcer Assessment: Acute diverticulitis with perforation: Worsening pneumoperitoneum with sepsis, present on admission status post exploratory laparotomy, diverting colostomy and small bowel resection Leukocytosis, secondary to above with concerns of abdominal surgical site infection, trending down, cultures from the surgical site showing E. coli Fevers, present on admission secondary to above, resolved defibrillator shock: With history of CAD status post stent in August [address] Hypertension, currently normotensive Hyperlipidemia Chronic systolic CHF, not in exacerbation, currently euvolemic A-fib with RVR, currently rate controlled Obesity with a BMI 31.0 Stage II sacral decubitus ulcer, present on admission GI prophylaxis DVT prophylaxis Full code Plan: Patient is currently status post exploratory laparotomy, diverting colostomy and small bowel resection with general surgery following ID following and is on abx for surgical site infection as wbc remains elevated although is trending down and less than 10 today. Cultures finalized showing E. coli with sensitivities, continued foul drainage noted and a few more cinda have been removed from the top of the surgical site for drainage Patient is noted to have a stage II sacral decubitus ulcer and recommend zinc barrier paste as well as frequent offloading and Optifoam to the area with position changes every 2 hours Follow-up on labs and replace electrolytes per protocol. Kidney functions improving and recommend discontinuing IV hydration as patient is significantly edematous with upper and lower extremity pitting noted. Recommend Rocco wraps to bilateral lower extremities from the toes up to the knees and will give a dose of Lasix again today Family requested a hospice consult for informational in the event patient clinically deteriorates Patient currently maintained on IV heparin as patient was n.p.o. postsurgical and per surgery has been okay to initiate oral anticoagulation and will start Eliquis 5 mg twice daily and discontinue the heparin drip. Patient stable for medical surgical floor with telemetry PT/OT therapy to evaluate as patient is significantly weak and not getting up out of bed at all. Recommend PT/OT therapy daily Encouraged incentive spirometer use at least 10 times every hour while awake. Patient currently maintained on room air and denies shortness of breath. Overall prognosis is extremely guarded The impression and plan of care has been dictated by Lisy Jones, Nurse Practitioner as directed. Dr. Ashlie MD I have performed a history and examination and MDM of this patient, discussed the same with the dictator, and agree with the dictator's assessment and plan as written ,documented as a scribe. Based on total visit time, I have performed more than 50% of the visit. Objective - Vital Signs Vital signs: Vital Signs Temp 98.0 F 05/27/24 04:00 Pulse 75 05/27/24 04:00 Resp 18 05/27/24 04:00 BP 156/75 05/27/24 04:00 Pulse Ox 98 05/27/24 04:00 FiO2 Intake & Output 05/26/24 05/26/24 05/27/24 06:59 18:59 06:59 Intake Total 235.906 20 Output Total 1205 770 Balance -969.094 -770 20 Weight 90 kg 82 kg Intake: IV 20 20 Invasive Line 1 10 10 Invasive Line 10 10 10 Intake, IV Titration 215.906 Amount Heparin Sod,Pork in 0.45% 215.906 NaCl 25,000 unit In 0.45 % NaCl 1 250ml.bag @ 12 UNITS/KG/HR 9.18 mls/hr IV .Q24H [facility] Rx#: [id number] Output: Drainage 5 20 Right Abdomen 5 20 Urine 1200 500 Stool 250 Other: Voiding Method Indwelling Catheter Indwelling Catheter Indwelling Catheter - Labs CBC & Chem 7: 05/26/24 08:02 05/26/24 08:02 Labs: Abnormal Lab Results - Last 24 Hours (Table) 05/26/24 05/26/24 05/26/24 Range/Units 08:02 08:02 08:02 RBC 3.67 L (3.80-5.40) m/uL Hgb 9.0 L (11.4-16.0) gm/dL Hct 30.5 L (34.0-46.0) % MCH 24.6 L (25.0-35.0) pg MCHC 29.6 L (31.0-37.0) g/dL RDW 15.6 H (11.5-15.5) % Neutrophils # 9.0 H (1.3-7.7) k/uL Lymphocytes # 0.7 L (1.0-4.8) k/uL APTT 48.5 H (22.0-30.0) sec Chloride 113 H (98-107) mmol/L Carbon Dioxide 20 L (22-30) mmol/L Calcium 8.3 L (8.4-10.2) mg/dL Microbiology - Last 24 Hours (Table) 05/23/24 12:59 Blood Culture - Preliminary Blood
[2024-05-27 07:16] LABS: African American GFR (CKD) >90 (>60 ml/min/1.73 sqM); Anion Gap 3 mmol/L; Blood Urea Nitrogen 15 mg/dL (7-17); Calcium 8.4 mg/dL (8.4-10.2); Carbon Dioxide 23 mmol/L (22-30); Chloride 112 mmol/L (98-107); Glucose 104 mg/dL (74-99); Non-African American GFR(CKD) >90 (>60 ml/min/1.73 sqM); Sodium 138 mmol/L (137-145)
[2024-05-27 07:20] LABS: Magnesium 1.7 mg/dL (1.6-2.3); Potassium 4.3 mmol/L (3.5-5.1)
[2024-05-27] MEDS: APIXABAN 5 MG TAB PO SCH (10:07)
[2024-05-27] MEDS: FUROSEMIDE 10 MG/ML 4 ML VIAL IV SCH (10:07)
--- NOTE | 2024-05-27 11:03 | P.PN ---
Subjective Progress Note Date: 05/27/24 CHIEF COMPLAINT: Perforated diverticulitis HISTORY OF PRESENT ILLNESS: Postop day #9 status post exploratory laparotomy, diverting colostomy and small bowel resection. Patient reports her pain is controlled. Ostomy is functioning. Dressing changes twice during the night. There is decrease in the amount of purulent drainage. VAUGHN drain with minimal purulent output. Patient tolerating the full liquid diet. Afebrile. Labs pending. Eliquis to be restarted today. Patient seen by speech therapy no dietary changes. Recommended to take medications with applesauce or yogurt. PHYSICAL EXAM: VITAL SIGNS: Reviewed. GENERAL: no acute distress. ABDOMEN: Soft. Nondistended. Incisional dressings are clean. Currently with minimal purulent drainage. VAUGHN drain with minimal purulent drainage ostomy functioning. Neuro patient is more awake and alert. ASSESSMENT: 1. Perforated diverticulitis 2. Low urine output, acute kidney injury. improved 3. Leukocytosis 4. Hypotension improved 5. Abdominal wound infection 6. Possible midline mesenteric abscess formation noted on CT scan PLAN: -Continue to monitor abdominal wound infection -Continue local wound care -Continue antibiotics per ID service -Continue pain management -Continue full liquids -Eliquis being restarted today -Encourage patient to work with physical therapy -land acquisition manager arranging ECF placement at discharge Physician Lens Examiner note has been reviewed by physician. Signing provider agrees with the documented findings, assessment, and plan of care. Objective - Vital Signs Vital signs: Vital Signs Temp 97.4 F L 05/27/24 10:04 Pulse 82 05/27/24 10:04 Resp 18 05/27/24 10:04 BP 149/69 05/27/24 10:04 Pulse Ox 98 05/27/24 10:04 FiO2 Intake & Output 05/26/24 05/27/24 05/27/24 18:59 06:59 18:59 Intake Total 20 120 Output Total 770 Balance -770 20 120 Weight 82 kg 82 kg Intake: IV 20 Invasive Line 1 10 Invasive Line 10 10 Oral 120 Output: Drainage 20 Right Abdomen 20 Urine 500 Stool 250 Other: Voiding Method Indwelling Catheter Indwelling Catheter Indwelling Catheter - Labs CBC & Chem 7: 05/26/24 08:02 05/27/24 06:45 Labs: Abnormal Lab Results - Last 24 Hours (Table) 05/27/24 05/27/24 Range/Units 06:45 06:45 APTT 30.8 H (22.0-30.0) sec Chloride 112 H (98-107) mmol/L Creatinine 0.47 L (0.52-1.04) mg/dL Glucose 104 H (74-99) mg/dL Microbiology - Last 24 Hours (Table) 05/23/24 12:59 Blood Culture - Preliminary Blood
[2024-05-27 11:28] LABS: Glucose,Whole Blood 118 mg/dL (70-110)
--- NOTE | 2024-05-27 14:15 | P.PN ---
Subjective Progress Note Date: 05/27/24 73-year-old female with past medical history significant for atrial fibrillation, AICD in place, ischemic cardiomyopathy with a EF 45%, coronary artery disease status post stenting August 2023, hypertension, hyperlipidemia who presented to ER with a complaint of defibrillator shock. Patient was discharged yesterday on oral antibiotics Ceftin and Flagyl, when patient was admitted for acute diverticulitis with perforation, infectious disease and general surgery was consulted and patient was continued on medical management during hospitalization and eventually discharged after clearance from general surgery after patient symptoms improved. Patient reported that she had of defibrillator shock yesterday, had 1 more shock earlier today leading to fall. Patient reported that she has not had a bowel movement. Patient has not started her home medication. Patient also reported fever and chills, reported abdominal distention, reported abdominal pain is same. Patient denied any headache, sore throat, productive cough, shortness of breath, chest pain, palpitations, dysuria urgency frequency weakness or numbness of extremities. Vitals: Temperature 100.3, heart rate 118, respiratory rate 18, blood pressure 101/62, saturating 94% on room air. Labs: WBCs 13.4, trending down, hemoglobin 11.3, platelets 453, INR 1.1, creatinine 0.49, BUN 16, normal ALT AST alkaline phosphatase and bilirubin. 05/17--patient was seen and examined today. Complaining of abdominal pain, nausea. Patient CT abdomen pelvis overnight showed acute diverticulitis with perforation with worsening pneumoperitoneum, general surgery consulted and following, planning for OR tomorrow as patient received Plavix today. Remains on amiodarone drip per cardiology. Monitor with telemetry. N.p.o., IV fluids, hold Farxiga. 05/18/2024 Patient is currently n.p.o. scheduled to undergo surgical intervention secondary to diverticulitis with perforation with general surgery. Will await surgical report. 05/19/2024 Patient is seen in follow-up this morning status post exploratory laparotomy, diverting colostomy and small bowel resection. Patient ostomy with some blood noted with no bowel activity as of yet. Patient blood pressures are on the lower side and receiving a bolus and will follow-up with repeat labs. Patient with decreased urine output although patient has not been n.p.o. for over 24 hours. White count is elevated although patient remains afebrile and kidney function mildly elevated as well recommend gentle hydration and follow-up on repeat labs. Patient continues with an NG tube for decompression with minimal frothy output noted. Discussed with the patient about ambulating and increasing activity as soon as possible and recommend PT/OT therapy evaluation. Patient also to continue with frequent offloading and position changes as patient is noted to have a stage II sacral decubitus ulcer that was present on admission. 05/20/2024 Patient is seen and evaluated in follow-up this morning with daughter at the bedside having some serous drainage output noted in ostomy. No bowel movement as of yet although patient did report she thought she noticed some air in the ostomy. Patient remains n.p.o. and continues with NG tube for decompression with multiple consultations following. Patient will continue on IV amiodarone and okay to resume IV heparin until tolerating oral intake per surgery to resume. Patient has not been up and walking and recommend PT/OT therapy evaluation and sitting up in the chair more often. Patient is extremely uncomfortable with the NG tube although understands its importance. Continue with mouth swabs frequently to the oral mucosa as it is extremely dry. Kidney function slightly worsened and sodium on the lower side recommend transitioning IV fluids with a decreased rate of D5 and normal saline as opposed to half- normal saline and recommend repeat labs. Urine output is fair and continues with indwelling Duarte catheter. Patient reporting some vaginal discomfort near the catheter and discussed with nursing staff about repositioning and continued Duarte catheter care and management. Blood pressures soft overall stable and will continue current regimen. Cardiology is following as well. 05/21--patient was seen and examined today. Patient had colostomy output, general surgery planning to DC NG tube. Plan to start ice chips and popsicles with slow advancement of diet. Patient currently on Zosyn and Eraxis per infectious disease. Will continue monitor labs. WBCs trending down to 14.5. Hemoglobin stable 9.7. Platelet normal. Sodium 130 potassium 4.3, BUN 32, creatinine 0.90. 05/22/2024--patient was seen and examined today. NG tube is out. Currently on ice chips with popsicles. Reported colostomy output. Vitals unremarkable, afebrile. WBC trending down 12.6. Hemoglobin stable 10.4. Platelet 363. Sodium improved to 136, potassium 3.4, BUN 28, creatinine 1.01. LFTs unremarkable. Cardiology following. Off amiodarone drip, currently on amiodarone 200 mg 3 times daily, metoprolol. Cardiology recommended to uptitrate rate metoprolol as tolerated. 05/23/2024 Patient is seen in follow-up today and is extremely lethargic and being followed by ID and general surgery. Patient wbc is elevated above [address] recommends a CT. General surgery now agreeable and CT abdomen reordered. Foul purulent drainage noted out of the abdomen and cultures obtained and pending. Family requested a hospice informational with Joan. Patient is extremely weak and fatigues easily. Family reports she was hallucinating last night when no one was in the room. Recommend limiting narcotics and out of the bed in the chair more often especially during the day. Brown loose stool noted in the ostomy. 05/24/2024 Patient is seen in follow-up today much more awake and having conversation with family at the bedside. Patient kidney functions are improving and patient appears edematous in upper and lower extremities with significant pitting noted recommend Rocco wraps to bilateral lower extremities and decreasing IV fluids. Patient is maintained on clear liquids and encouraged oral intake. Patient maintained on antibiotics with infectious disease following for abdominal site infection and cultures are pending at this time. Patient continues to have gas and stool noted in the ostomy. 05/25/2024 Patient is seen in follow-up today being followed closely with general surgery and infectious disease. Patient is maintained on antibiotics and did have some lower abdominal incision cinda removed with continued persistent drainage noted. Ostomy is functioning with gas and stool and patient is maintained on clear liquid diet attempting to eat. Patient reports to feeling somewhat improved although was having significant swelling as well. Kidney functions have improved and will decrease hydration and give a dose of Lasix. Instructed nursing staff to use Rocco wraps from the toes to the knees and elevate lower extremities. Patient needs PT/OT therapy daily and getting out of the bed daily. Encouraged incentive spirometer use and continue deep breathing. Noted at the bedside concerned with her overall feelings of depression and being overwhelmed with her current medical conditions, will start low-dose antidepressant. 05/26/2024 Patient is seen in follow-up today currently attempting to work with physical therapy. Patient is a heavy 2 person assist and will most definitely require ECF on discharge. Cultures from abdominal wound site infection revealing E. coli and patient is maintained on Zosyn with infectious disease following. Patient continues to have some volume overload of upper and lower extremities and will give another dose of IV Lasix and monitor. Kidney functions have improved. Patient per surgery okay to be placed on anticoagulation orally and discontinue heparin drip. 05/27/2024 Patient is evaluated today in follow-up on the medical floor. Patient's family is concerned with her stage II sacral decub receiving zinc barrier paste and OPTi foam dressing. Will ask wound care to evaluate the wound. Continues on IV Zosyn for E. coli in the abdominal wound she is still continue with some drain age purulent. She is currently receiving IV Lasix for significant peripheral edema. Her sodium level is 138, BUN of 15, creatinine 0.47. Magnesium level of 1.7. Her albumin has been low. She remains on a full liquid diet. Is having stool from the ostomy. She has been resumed on Eliquis. REVIEW OF SYSTEMS: CONSTITUTIONAL: No fever or chills. Patient reports feeling lethargic CARDIOVASCULAR: No chest pain, palpitations or syncope. PULMONARY: Reports of intermittent shortness of breath, no cough, sore throat. GASTROINTESTINAL: Reports of occasional nausea, no vomiting, no diarrhea, re ports continued abdominal tenderness. And not much of an appetite : No Dysuria, urgency, frequency. Extremities: No edema. NEUROLOGICAL: No headaches, reports extreme weakness and significant swelling PHYSICAL EXAMINATION: GENERAL: The patient is A&O x3, awake and alert having conversation, elderly appearing, ill-appearing, obese HEENT: EOMI, Sclerae anicteric, dry Mucous membranes Neck: Supple, Non tender, No JVD PULMONARY: diminshed breath sounds bilaterally, Equal breath souds B/L, No w heezing, No crackles. CARDIOVASCULAR: S1, S2 muffled, irregular, currently controlled ABDOMEN: Tender, less distended. Tenderness and discomfort noted on palpation ostomy noted on the left with some brown stool and gas. MUSCULOSKELETAL: No edema, No cyanosis. No clubbing. Normal ROM. Intact perip heral pulses. EXTREMITIES: No cyanosis, clubbing, bilateral upper and lower extremity swelling with some weeping, 2+ pitting NEUROLOGICAL: CN 2-12 grossly intact. No FND Skin: No Rash, stage II sacral decubitus ulcer Assessment: Acute diverticulitis with perforation: Worsening pneumoperitoneum with sepsis, present on admission status post exploratory laparotomy, diverting colostomy and small bowel resection Leukocytosis, secondary to above with concerns of abdominal surgical site infection, trending down, cultures from the surgical site showing E. coli Fevers, present on admission secondary to above, resolved defibrillator shock: With history of CAD status post stent in August [address] Hypertension, currently normotensive Hyperlipidemia Chronic systolic CHF, not in exacerbation, currently euvolemic A-fib with RVR, currently rate controlled Obesity with a BMI 31.0 Stage II sacral decubitus ulcer, present on admission GI prophylaxis DVT prophylaxis Full code Plan: Patient is currently status post exploratory laparotomy, diverting colostomy and small bowel resection with general surgery following ID following and is on abx for surgical site infection as wbc remains elevated although is trending down and less than 10 today. Cultures finalized showing E. coli with sensitivities, continued foul drainage noted and a few more cinda have been removed from the top of the surgical site for drainage Patient is noted to have a stage II sacral decubitus ulcer and recommend zinc barrier paste as well as frequent offloading and Optifoam to the area with position changes every 2 hours; Wound care has been consulted. Follow-up on labs and replace electrolytes per protocol. Kidney functions improving and recommend discontinuing IV hydration as patient is significantly edematous with upper and lower extremity pitting noted. Recommend Rocco wraps to bilateral lower extremities from the toes up to the knees and will give a dose of Lasix again today Family requested a hospice consult for informational in the event patient clinically deteriorates Patient has been resumed on eliquis; heparin discontinued. Downgraded to medical surgical unit. PT/OT therapy to evaluate as patient is significantly weak and not getting up out of bed at all. Recommend PT/OT therapy daily Encouraged incentive spirometer use at least 10 times every hour while awake. Patient currently maintained on room air and denies shortness of breath. Overall prognosis is extremely guarded The impression and plan of care has been dictated by Anju Smiley, Nurse Practitioner as directed. Dr. Ashlie MD I have performed a history and examination and MDM of this patient, discussed the same with the dictator, and agree with the dictator's assessment and plan as written ,documented as a scribe. Based on total visit time, I have performed more than 50% of the visit. Objective - Vital Signs Vital signs: Vital Signs Temp 97.4 F L 05/27/24 10:04 Pulse 86 05/27/24 11:48 Resp 18 05/27/24 11:48 BP 113/64 05/27/24 11:48 Pulse Ox 98 05/27/24 11:48 FiO2 Intake & Output 05/26/24 05/27/24 05/27/24 18:59 06:59 18:59 Intake Total 20 240 Output Total 770 Balance -770 20 240 Weight 82 kg 82 kg Intake: IV 20 Invasive Line 1 10 Invasive Line 10 10 Oral 240 Output: Drainage 20 Right Abdomen 20 Urine 500 Stool 250 Other: Voiding Method Indwelling Catheter Indwelling Catheter Indwelling Catheter - Labs CBC & Chem 7: 05/26/24 08:02 05/27/24 06:45 Labs: Abnormal Lab Results - Last 24 Hours (Table) 05/27/24 05/27/24 05/27/24 Range/Units 06:45 06:45 11:24 APTT 30.8 H (22.0-30.0) sec Chloride 112 H (98-107) mmol/L Creatinine 0.47 L (0.52-1.04) mg/dL Glucose 104 H (74-99) mg/dL POC Glucose (mg/dL) 118 H (70-110) mg/dL Microbiology - Last 24 Hours (Table) 05/23/24 12:59 Blood Culture - Preliminary Blood Assessment and Plan Time with Patient: Less than 30
--- NOTE | 2024-05-27 15:25 | P.PN ---
Subjective Progress Note Date: 05/27/24 Principal diagnosis: Reason for follow-up is perforated diverticulitis and peritonitis Patient is a 73-year-old female with a past medical history significant for hypertension hyperlipidemia [place] atrial fibrillation, patient was recently admitted at this facility and has been diagnosed with a diverticulitis with microperforation pending bed to the hospital with a defibrillator shock with repeat CT abdominal pelvis shows worsening pneumoperitoneum, patient was taken to the OR on 05/18/2024 status post small bowel resection because of adhesion that is and diverting colostomy operative report did not mention any abscess and no culture On today's evaluation that is 05/27/2024,the patient remains to be afebrile, patient is on 2 L nasal cannula supplemental oxygen and denies any shortness of breath no chest pain or cough.Patient denies having any nausea or vomiting, abdominal pain has decreased in intensity and did have output in the colostomy. No CBC was done today creatinine 0.47 abdominal culture with Bacteroides Daria and E. coli Objective - Vital Signs Vital signs: Vital Signs Temp 97.4 F L 05/27/24 10:04 Pulse 82 05/27/24 10:04 Resp 18 05/27/24 10:04 BP 149/69 05/27/24 10:04 Pulse Ox 98 05/27/24 10:04 FiO2 Intake & Output 05/26/24 05/27/24 05/27/24 18:59 06:59 18:59 Intake Total 20 120 Output Total 770 Balance -770 20 120 Weight 82 kg 82 kg Intake: IV 20 Invasive Line 1 10 Invasive Line 10 10 Oral 120 Output: Drainage 20 Right Abdomen 20 Urine 500 Stool 250 Other: Voiding Method Indwelling Catheter Indwelling Catheter Indwelling Catheter - Exam GENERAL DESCRIPTION: An elderly female lying in bed in no distress RESPIRATORY SYSTEM: Unlabored breathing , decreased breath sounds at bases HEART: S1 S2 regular rate and rhythm , ABDOMEN: Soft , mild tenderness EXTREMITIES: No edema feet - Labs CBC & Chem 7: 05/26/24 08:02 05/27/24 06:45 Labs: Abnormal Lab Results - Last 24 Hours (Table) 05/27/24 05/27/24 05/27/24 Range/Units 06:45 06:45 11:24 APTT 30.8 H (22.0-30.0) sec Chloride 112 H (98-107) mmol/L Creatinine 0.47 L (0.52-1.04) mg/dL Glucose 104 H (74-99) mg/dL POC Glucose (mg/dL) 118 H (70-110) mg/dL Microbiology - Last 24 Hours (Table) 05/23/24 12:59 Blood Culture - Preliminary Blood Assessment and Plan (1) Intra-abdominal abscess Current Visit: Yes Status: Acute Code(s): K65.1 - PERITONEAL ABSCESS SNOMED Code(s): 48202481 (2) Peritonitis Current Visit: Yes Status: Acute Code(s): K65.9 - PERITONITIS, UNSPECIFIED SNOMED Code(s): 74571544 (3) Perforation of sigmoid colon due to diverticulitis Current Visit: No Status: Acute Code(s): K57.20 - DVTRCLI OF LG INT W PERFORATION AND ABSCESS W/O BLEEDING SNOMED Code(s): 4929913635753112 Plan: 1patient presented to hospital with sepsis in this patient who did have fever tachycardia elevated white count source is complicated diverticulitis now with evidence of pneumoperitoneum and worsening inflammatory changes will need to cover for the enteric gram-negative both aerobes and anaerobes 2-patient is status post laparotomy small bowel resection and diverting colostomyoperative report did not mention any abscess and no culture 3-patient noticed to have drainage from the lower end of the incision which has been opened up Obtain CT Abdominal Pelvis with Some Phlegmon Changes and Free Air but Did Not Mention Any Abscess Collection 4patient white count has normalized abdominal culture growing E. coli and bacteroids and now has been updated with Daria we will continue with the Zosyn restart Eraxis to cover for the Daria as we are not able to use Diflucan because of multiple drug interaction especially with amiodarone the patient is on Dictation was produced using [employer] software. please excuse any grammatical, word or spelling errors.
[2024-05-27] MEDS: ANIDULAFUNGIN 100 MG in SODIUM CHLORIDE 0.9% 100 ML IVPB SCH (16:02)
[2024-05-27 16:58] LABS: Glucose,Whole Blood 118 mg/dL (70-110)
[2024-05-27 17:13] LABS: Appearance,Urine Cloudy (Clear); Bacteria,Urine Occasional /hpf; Bilirubin,Urine Negative (Negative); Blood,Urine Small (Negative); Color,Urine Colorless; Glucose,Urine (UA) Negative (Negative); Hyaline Casts,Urine 1 /lpf (0-2); Ketones,Urine Negative (Negative); Leukocyte Esterase,Urine Negative (Negative); Mucus,Urine Rare /hpf; Nitrite,Urine Negative (Negative); Protein,Urine Negative (Negative); RBC,Urine 18 /hpf (0-5); Urobilinogen,Urine <2.0 mg/dL (<2.0); WBC,Urine 2 /hpf (0-5)
[2024-05-27 20:31] LABS: Glucose,Whole Blood 115 mg/dL (70-110)
[2024-05-28 06:17] LABS: Glucose,Whole Blood 107 mg/dL (70-110)
[2024-05-28 08:06] LABS: African American GFR (CKD) >90 (>60 ml/min/1.73 sqM); Anion Gap 4 mmol/L; Blood Urea Nitrogen 13 mg/dL (7-17); Calcium 8.3 mg/dL (8.4-10.2); Carbon Dioxide 28 mmol/L (22-30); Chloride 106 mmol/L (98-107); Glucose 100 mg/dL (74-99); Magnesium 1.7 mg/dL (1.6-2.3); Non-African American GFR(CKD) >90 (>60 ml/min/1.73 sqM); Potassium 3.6 mmol/L (3.5-5.1); Sodium 138 mmol/L (137-145)
[2024-05-28 08:23] LABS: Basophils % (A) 0 %; Eosinophils % (A) 0 %; HCT 31.2 % (34.0-46.0); HGB 9.3 gm/dL (11.4-16.0); Hypochromasia Marked; Lymphocytes # (A) 0.7 k/uL (1.0-4.8); Lymphocytes % (A) 7 %; MCH 24.5 pg (25.0-35.0); MCHC 29.8 g/dL (31.0-37.0); Mean Platelet Volume 7.6; Monocytes # (A) 0.5 k/uL (0-1.0); Monocytes % (A) 5 %; Neutrophils # (A) 8.9 k/uL (1.3-7.7); Neutrophils % (A) 87 %; Platelet Count 222 k/uL (150-450); WBC 10.2 k/uL (3.8-10.6)
--- NOTE | 2024-05-28 08:58 | P.PN ---
Subjective Progress Note Date: 05/28/24 Patient feels better today. She is tolerating diet. She states she will try to get up to the chair today. On exam vital signs appear stable. Abdomen is soft. Colostomy is functioning. Wound is healing. Status post colostomy for perforated diverticulitis. Patient will continue receive supportive care. Objective - Vital Signs Vital signs: Vital Signs Temp 97.7 F 05/28/24 04:55 Pulse 69 05/28/24 04:55 Resp 20 05/28/24 04:55 BP 113/55 05/28/24 04:55 Pulse Ox 99 05/28/24 04:55 FiO2 Intake & Output 05/27/24 05/28/24 05/28/24 18:59 06:59 18:59 Intake Total 240 Output Total 2300 730 Balance -2059 Weight 82 kg 85 kg Intake: Oral 240 Output: Drainage 30 Right Abdomen 30 Urine 2300 400 Uretheral (Duarte) 1600 Stool 300 Other: Voiding Method Indwelling Catheter Indwelling Catheter # Bowel Movements 0 - Labs CBC & Chem 7: 05/28/24 06:50 05/28/24 06:50 Labs: Abnormal Lab Results - Last 24 Hours (Table) 05/27/24 05/27/24 05/27/24 Range/Units 11:24 16:29 16:56 Hgb (11.4-16.0) gm/dL Hct (34.0-46.0) % MCH (25.0-35.0) pg MCHC (31.0-37.0) g/dL RDW (11.5-15.5) % Neutrophils # (1.3-7.7) k/uL Lymphocytes # (1.0-4.8) k/uL Creatinine (0.52-1.04) mg/dL Glucose (74-99) mg/dL POC Glucose (mg/dL) 118 H 118 H (70-110) mg/dL Calcium (8.4-10.2) mg/dL Urine Appearance Cloudy H (Clear) Urine Blood Small H (Negative) Urine RBC 18 H (0-5) /hpf Urine Bacteria Occasional H (None) /hpf Urine Mucus Rare H (None) /hpf 05/27/24 05/28/24 05/28/24 Range/Units 20:30 06:50 06:50 Hgb 9.3 L (11.4-16.0) gm/dL Hct 31.2 L (34.0-46.0) % MCH 24.5 L (25.0-35.0) pg MCHC 29.8 L (31.0-37.0) g/dL RDW 16.0 H (11.5-15.5) % Neutrophils # 8.9 H (1.3-7.7) k/uL Lymphocytes # 0.7 L (1.0-4.8) k/uL Creatinine 0.51 L (0.52-1.04) mg/dL Glucose 100 H (74-99) mg/dL POC Glucose (mg/dL) 115 H (70-110) mg/dL Calcium 8.3 L (8.4-10.2) mg/dL Urine Appearance (Clear) Urine Blood (Negative) Urine RBC (0-5) /hpf Urine Bacteria (None) /hpf Urine Mucus (None) /hpf Microbiology - Last 24 Hours (Table) 05/23/24 13:06 Anaerobic Culture - Final Abdomen Bacteroides thetaiotaomicron Daria albicans
[2024-05-28] MEDS ORDERED: Magnesium Replacement Protocol 1 EACH MISC MISCELLANE PRN (10:42)
[2024-05-28 11:34] LABS: Glucose,Whole Blood 135 mg/dL (70-110)
[2024-05-28] MEDS: MAGNESIUM SULFATE-D5W PMX 1 GM in DEXTROSE/WATER 1 100ML.BAG IVPB ONE (12:10)
--- NOTE | 2024-05-28 12:36 | P.PN ---
Subjective Progress Note Date: 05/28/24 73-year-old female with past medical history significant for atrial fibrillation, AICD in place, ischemic cardiomyopathy with a EF 45%, coronary artery disease status post stenting August 2023, hypertension, hyperlipidemia who presented to ER with a complaint of defibrillator shock. Patient was discharged yesterday on oral antibiotics Ceftin and Flagyl, when patient was admitted for acute diverticulitis with perforation, infectious disease and general surgery was consulted and patient was continued on medical management during hospitalization and eventually discharged after clearance from general surgery after patient symptoms improved. Patient reported that she had of defibrillator shock yesterday, had 1 more shock earlier today leading to fall. Patient reported that she has not had a bowel movement. Patient has not started her home medication. Patient also reported fever and chills, reported abdominal distention, reported abdominal pain is same. Patient denied any headache, sore throat, productive cough, shortness of breath, chest pain, palpitations, dysuria urgency frequency weakness or numbness of extremities. Vitals: Temperature 100.3, heart rate 118, respiratory rate 18, blood pressure 101/62, saturating 94% on room air. Labs: WBCs 13.4, trending down, hemoglobin 11.3, platelets 453, INR 1.1, creatinine 0.49, BUN 16, normal ALT AST alkaline phosphatase and bilirubin. 05/17--patient was seen and examined today. Complaining of abdominal pain, nausea. Patient CT abdomen pelvis overnight showed acute diverticulitis with perforation with worsening pneumoperitoneum, general surgery consulted and following, planning for OR tomorrow as patient received Plavix today. Remains on amiodarone drip per cardiology. Monitor with telemetry. N.p.o., IV fluids, hold Farxiga. 05/18/2024 Patient is currently n.p.o. scheduled to undergo surgical intervention secondary to diverticulitis with perforation with general surgery. Will await surgical report. 05/19/2024 Patient is seen in follow-up this morning status post exploratory laparotomy, diverting colostomy and small bowel resection. Patient ostomy with some blood noted with no bowel activity as of yet. Patient blood pressures are on the lower side and receiving a bolus and will follow-up with repeat labs. Patient with decreased urine output although patient has not been n.p.o. for over 24 hours. White count is elevated although patient remains afebrile and kidney function mildly elevated as well recommend gentle hydration and follow-up on repeat labs. Patient continues with an NG tube for decompression with minimal frothy output noted. Discussed with the patient about ambulating and increasing activity as soon as possible and recommend PT/OT therapy evaluation. Patient also to continue with frequent offloading and position changes as patient is noted to have a stage II sacral decubitus ulcer that was present on admission. 05/20/2024 Patient is seen and evaluated in follow-up this morning with daughter at the bedside having some serous drainage output noted in ostomy. No bowel movement as of yet although patient did report she thought she noticed some air in the ostomy. Patient remains n.p.o. and continues with NG tube for decompression with multiple consultations following. Patient will continue on IV amiodarone and okay to resume IV heparin until tolerating oral intake per surgery to resume. Patient has not been up and walking and recommend PT/OT therapy evaluation and sitting up in the chair more often. Patient is extremely uncomfortable with the NG tube although understands its importance. Continue with mouth swabs frequently to the oral mucosa as it is extremely dry. Kidney function slightly worsened and sodium on the lower side recommend transitioning IV fluids with a decreased rate of D5 and normal saline as opposed to half- normal saline and recommend repeat labs. Urine output is fair and continues with indwelling Duarte catheter. Patient reporting some vaginal discomfort near the catheter and discussed with nursing staff about repositioning and continued Duarte catheter care and management. Blood pressures soft overall stable and will continue current regimen. Cardiology is following as well. 05/21--patient was seen and examined today. Patient had colostomy output, general surgery planning to DC NG tube. Plan to start ice chips and popsicles with slow advancement of diet. Patient currently on Zosyn and Eraxis per infectious disease. Will continue monitor labs. WBCs trending down to 14.5. Hemoglobin stable 9.7. Platelet normal. Sodium 130 potassium 4.3, BUN 32, creatinine 0.90. 05/22/2024--patient was seen and examined today. NG tube is out. Currently on ice chips with popsicles. Reported colostomy output. Vitals unremarkable, afebrile. WBC trending down 12.6. Hemoglobin stable 10.4. Platelet 363. Sodium improved to 136, potassium 3.4, BUN 28, creatinine 1.01. LFTs unremarkable. Cardiology following. Off amiodarone drip, currently on amiodarone 200 mg 3 times daily, metoprolol. Cardiology recommended to uptitrate rate metoprolol as tolerated. 05/23/2024 Patient is seen in follow-up today and is extremely lethargic and being followed by ID and general surgery. Patient wbc is elevated above [address] recommends a CT. General surgery now agreeable and CT abdomen reordered. Foul purulent drainage noted out of the abdomen and cultures obtained and pending. Family requested a hospice informational with Joan. Patient is extremely weak and fatigues easily. Family reports she was hallucinating last night when no one was in the room. Recommend limiting narcotics and out of the bed in the chair more often especially during the day. Brown loose stool noted in the ostomy. 05/24/2024 Patient is seen in follow-up today much more awake and having conversation with family at the bedside. Patient kidney functions are improving and patient appears edematous in upper and lower extremities with significant pitting noted recommend Rocco wraps to bilateral lower extremities and decreasing IV fluids. Patient is maintained on clear liquids and encouraged oral intake. Patient maintained on antibiotics with infectious disease following for abdominal site infection and cultures are pending at this time. Patient continues to have gas and stool noted in the ostomy. 05/25/2024 Patient is seen in follow-up today being followed closely with general surgery and infectious disease. Patient is maintained on antibiotics and did have some lower abdominal incision cinda removed with continued persistent drainage noted. Ostomy is functioning with gas and stool and patient is maintained on clear liquid diet attempting to eat. Patient reports to feeling somewhat improved although was having significant swelling as well. Kidney functions have improved and will decrease hydration and give a dose of Lasix. Instructed nursing staff to use Rocco wraps from the toes to the knees and elevate lower extremities. Patient needs PT/OT therapy daily and getting out of the bed daily. Encouraged incentive spirometer use and continue deep breathing. Noted at the bedside concerned with her overall feelings of depression and being overwhelmed with her current medical conditions, will start low-dose antidepressant. 05/26/2024 Patient is seen in follow-up today currently attempting to work with physical therapy. Patient is a heavy 2 person assist and will most definitely require ECF on discharge. Cultures from abdominal wound site infection revealing E. coli and patient is maintained on Zosyn with infectious disease following. Patient continues to have some volume overload of upper and lower extremities and will give another dose of IV Lasix and monitor. Kidney functions have improved. Patient per surgery okay to be placed on anticoagulation orally and discontinue heparin drip. 05/27/2024 Patient is evaluated today in follow-up on the medical floor. Patient's family is concerned with her stage II sacral decub receiving zinc barrier paste and OPTi foam dressing. Will ask wound care to evaluate the wound. Continues on IV Zosyn for E. coli in the abdominal wound she is still continue with some drain age purulent. She is currently receiving IV Lasix for significant peripheral edema. Her sodium level is 138, BUN of 15, creatinine 0.47. Magnesium level of 1.7. Her albumin has been low. She remains on a full liquid diet. Is having stool from the ostomy. She has been resumed on Eliquis. 05/28/2024 Patient is evaluated in follow-up in the medical floor with her daughter at the bedside. Wound care consultation was placed slightly afternoon and then will be unable to see the patient until Thursday. Discussed with infectious disease requesting to review the imaging and wound further recommendations may need a surgical debridement pending on recommendations. Continue this patient IV Lasix daily she does continue with significant peripheral edema. Patient has been essentially bedrest fatigued and family with concerns about her activity level stating that just because she has a 2-3 person assist she should be up in the chair and out of bed and the longer that she lays in bed the week where she will be calm. Patient will require subacute rehab on discharge. Although patient states that she is fatigued and does not really want to get up out of bed and his been resistant to frequent repositioning for the stage II pressure injury. Discussed this with family as well. Blood work today reveals a white blood cell count of 10.2, hemoglobin 9.3, sodium of 138, potassium 3.6, BUN of 13, creatinine of 0.51. Magnesium 1.7. patient continues on IV Zosyn and IV anidulafungin has been added. REVIEW OF SYSTEMS: CONSTITUTIONAL: No fever or chills. Patient reports feeling lethargic CARDIOVASCULAR: No chest pain, palpitations or syncope. PULMONARY: Reports of intermittent shortness of breath, no cough, sore throat. GASTROINTESTINAL: Reports of occasional nausea, no vomiting, no diarrhea, reports continued abdominal tenderness. And not much of an appetite : No Dysuria, urgency, frequency. Extremities: No edema. NEUROLOGICAL: No headaches, reports extreme weakness and significant swelling PHYSICAL EXAMINATION: GENERAL: The patient is A&O x3, awake and alert having conversation, elderly appearing, ill-appearing, obese HEENT: EOMI, Sclerae anicteric, dry Mucous membranes Neck: Supple, Non tender, No JVD PULMONARY: diminshed breath sounds bilaterally, Equal breath souds B/L, No wheezing, No crackles. CARDIOVASCULAR: S1, S2 muffled, irregular, currently controlled ABDOMEN: Tender, less distended. Tenderness and discomfort noted on palpation ostomy noted on the left with some brown stool and gas. MUSCULOSKELETAL: No edema, No cyanosis. No clubbing. Normal ROM. Intact peripheral pulses. EXTREMITIES: No cyanosis, clubbing, bilateral upper and lower extremity swelling with some weeping, 2+ pitting NEUROLOGICAL: CN 2-12 grossly intact. No FND Skin: No Rash, stage II sacral decubitus ulcer Assessment: Acute diverticulitis with perforation: Worsening pneumoperitoneum with sepsis, present on admission status post exploratory laparotomy, diverting colostomy and small bowel resection Leukocytosis, secondary to above with concerns of abdominal surgical site infection, trending down, cultures from the surgical site showing E. coli Fevers, present on admission secondary to above, resolved defibrillator shock: With history of CAD status post stent in August [address] Hypertension, currently normotensive Hyperlipidemia Chronic systolic CHF, not in exacerbation, currently euvolemic A-fib with RVR, currently rate controlled Obesity with a BMI 31.0 Stage II sacral decubitus ulcer, present on admission GI prophylaxis DVT prophylaxis Full code Plan: Patient is currently status post exploratory laparotomy, diverting colostomy and small bowel resection with general surgery following ID following and is on abx for surgical site infection as wbc remains elevated although is trending down and less than 10 today. Cultures finalized showing E. coli with sensitivities, continued foul drainage noted and a few more cinda have been removed from the top of the surgical site for drainage Patient is noted to have a stage II sacral decubitus ulcer and recommend zinc barrier paste as well as frequent offloading and Optifoam to the area with p osition changes every 2 hours; Wound care has been consulted. Follow-up on labs and replace electrolytes per protocol. Kidney functions improving and recommend discontinuing IV hydration as patient is significantly edematous with upper and lower extremity pitting noted. Recommend Rocco wraps to bilateral lower extremities from the toes up to the knees and will give a dose of Lasix again today Family requested a hospice consult for informational in the event patient clinically deteriorates Patient has been resumed on eliquis; heparin discontinued. Downgraded to medical surgical unit. PT/OT therapy to evaluate as patient is significantly weak and not getting up out of bed at all. Recommend PT/OT therapy daily Encouraged incentive spirometer use at least 10 times every hour while awake. Patient currently maintained on room air and denies shortness of breath. Overall prognosis is extremely guarded The impression and plan of care has been dictated by Anju Smiley, Nurse Practitioner as directed. Dr. Ashlie MD I have performed a history and examination and MDM of this patient, discussed the same with the dictator, and agree with the dictator's assessment and plan as written ,documented as a scribe. Based on total visit time, I have performed more than 50% of the visit. Objective - Vital Signs Vital signs: Vital Signs Temp 97.9 F 05/28/24 08:00 Pulse 86 05/28/24 08:00 Resp 18 05/28/24 08:00 BP 114/78 05/28/24 08:00 Pulse Ox 99 05/28/24 08:00 FiO2 Intake & Output 05/27/24 05/28/24 05/28/24 18:59 06:59 18:59 Intake Total 240 118 Output Total 2300 730 300 Balance -2060 -730 -182 Weight 82 kg 85 kg Intake: Oral 240 118 Output: Drainage 30 Right Abdomen 30 Urine 2300 400 Uretheral (Duarte) 1600 Stool 300 300 Other: Voiding Method Indwelling Catheter Indwelling Catheter Indwelling Catheter # Bowel Movements 0 - Labs CBC & Chem 7: 05/28/24 06:50 05/28/24 06:50 Labs: Abnormal Lab Results - Last 24 Hours (Table) 05/27/24 05/27/24 05/27/24 Range/Units 16:29 16:56 20:30 Hgb (11.4-16.0) gm/dL Hct (34.0-46.0) % MCH (25.0-35.0) pg MCHC (31.0-37.0) g/dL RDW (11.5-15.5) % Neutrophils # (1.3-7.7) k/uL Lymphocytes # (1.0-4.8) k/uL Creatinine (0.52-1.04) mg/dL Glucose (74-99) mg/dL POC Glucose (mg/dL) 118 H 115 H (70-110) mg/dL Calcium (8.4-10.2) mg/dL Urine Appearance Cloudy H (Clear) Urine Blood Small H (Negative) Urine RBC 18 H (0-5) /hpf Urine Bacteria Occasional H (None) /hpf Urine Mucus Rare H (None) /hpf 05/28/24 05/28/24 05/28/24 Range/Units 06:50 06:50 11:32 Hgb 9.3 L (11.4-16.0) gm/dL Hct 31.2 L (34.0-46.0) % MCH 24.5 L (25.0-35.0) pg MCHC 29.8 L (31.0-37.0) g/dL RDW 16.0 H (11.5-15.5) % Neutrophils # 8.9 H (1.3-7.7) k/uL Lymphocytes # 0.7 L (1.0-4.8) k/uL Creatinine 0.51 L (0.52-1.04) mg/dL Glucose 100 H (74-99) mg/dL POC Glucose (mg/dL) 135 H (70-110) mg/dL Calcium 8.3 L (8.4-10.2) mg/dL Urine Appearance (Clear) Urine Blood (Negative) Urine RBC (0-5) /hpf Urine Bacteria (None) /hpf Urine Mucus (None) /hpf Microbiology - Last 24 Hours (Table) 05/23/24 13:06 Anaerobic Culture - Final Abdomen Bacteroides thetaiotaomicron Daria albicans Assessment and Plan Time with Patient: Greater than 30
--- NOTE | 2024-05-28 14:28 | P.PN ---
Subjective Progress Note Date: 05/28/24 Principal diagnosis: Reason for follow-up is perforated diverticulitis and peritonitis Patient is a 73-year-old female with a past medical history significant for hypertension hyperlipidemia MA atrial fibrillation, patient was recently admitted at this facility and has been diagnosed with a diverticulitis with microperforation pending bed to the hospital with a defibrillator shock with repeat CT abdominal pelvis shows worsening pneumoperitoneum, patient was taken to the OR on 05/18/2024 status post small bowel resection because of adhesion that is and diverting colostomy operative report did not mention any abscess and no culture On today's evaluation that is 05/28/2024, the patient continues to be afebrile, the patient is on 2 L current oxygen and breathing comfortably, the Pt denies having any chest pain or cough, the patient denies having any vomiting abd ominal pain has decreased intensity has developed significant discoloration to the sacral area. Patient white count is 10.2, creatinine 0.51 Objective - Vital Signs Vital signs: Vital Signs Temp 97.9 F 05/28/24 08:00 Pulse 86 05/28/24 08:00 Resp 18 05/28/24 08:00 BP 114/78 05/28/24 08:00 Pulse Ox 99 05/28/24 08:00 FiO2 Intake & Output 05/27/24 05/28/24 05/28/24 18:59 06:59 18:59 Intake Total 240 118 Output Total 2300 730 300 Balance -0 -730 -182 Weight 82 kg 85 kg Intake: Oral 240 118 Output: Drainage 30 Right Abdomen 30 Urine 2300 400 Uretheral (Duarte) 1600 Stool 300 300 Other: Voiding Method Indwelling Catheter Indwelling Catheter Indwelling Catheter # Bowel Movements 0 - Exam GENERAL DESCRIPTION: An elderly female lying in bed in no distress RESPIRATORY SYSTEM: Unlabored breathing , decreased breath sounds at bases HEART: S1 S2 regular rate and rhythm , ABDOMEN: Soft , mild tenderness EXTREMITIES: No edema feet - Labs CBC & Chem 7: 05/28/24 06:50 05/28/24 06:50 Labs: Abnormal Lab Results - Last 24 Hours (Table) 05/27/24 05/27/24 05/27/24 Range/Units 16:29 16:56 20:30 Hgb (11.4-16.0) gm/dL Hct (34.0-46.0) % MCH (25.0-35.0) pg MCHC (31.0-37.0) g/dL RDW (11.5-15.5) % Neutrophils # (1.3-7.7) k/uL Lymphocytes # (1.0-4.8) k/uL Creatinine (0.52-1.04) mg/dL Glucose (74-99) mg/dL POC Glucose (mg/dL) 118 H 115 H (70-110) mg/dL Calcium (8.4-10.2) mg/dL Urine Appearance Cloudy H (Clear) Urine Blood Small H (Negative) Urine RBC 18 H (0-5) /hpf Urine Bacteria Occasional H (None) /hpf Urine Mucus Rare H (None) /hpf 05/28/24 05/28/24 05/28/24 Range/Units 06:50 06:50 11:32 Hgb 9.3 L (11.4-16.0) gm/dL Hct 31.2 L (34.0-46.0) % MCH 24.5 L (25.0-35.0) pg MCHC 29.8 L (31.0-37.0) g/dL RDW 16.0 H (11.5-15.5) % Neutrophils # 8.9 H (1.3-7.7) k/uL Lymphocytes # 0.7 L (1.0-4.8) k/uL Creatinine 0.51 L (0.52-1.04) mg/dL Glucose 100 H (74-99) mg/dL POC Glucose (mg/dL) 135 H (70-110) mg/dL Calcium 8.3 L (8.4-10.2) mg/dL Urine Appearance (Clear) Urine Blood (Negative) Urine RBC (0-5) /hpf Urine Bacteria (None) /hpf Urine Mucus (None) /hpf Microbiology - Last 24 Hours (Table) 05/23/24 13:06 Anaerobic Culture - Final Abdomen Bacteroides thetaiotaomicron Daria albicans Assessment and Plan (1) Intra-abdominal abscess Current Visit: Yes Status: Acute Code(s): K65.1 - PERITONEAL ABSCESS SN OMED Code(s): 22593154 (2) Peritonitis Current Visit: Yes Status: Acute Code(s): K65.9 - PERITONITIS, UNSPECIFIED SNOMED Code(s): 35117018 (3) Perforation of sigmoid colon due to diverticulitis Current Visit: No Status: Acute Code(s): K57.20 - DVTRCLI OF LG INT W PER FORATION AND ABSCESS W/O BLEEDING SNOMED Code(s): 9418232125297627 (4) Stage II pressure ulcer of sacral region Current Visit: Yes Status: Acute Code(s): L89.152 - PRESSURE ULCER OF SACRAL REGION, STAGE 2 SNOMED Code(s): 09374831800819 Plan: 1patient presented to hospital with sepsis in this patient who did have fever tachycardia elevated white count source is complicated diverticulitis now with evidence of pneumoperitoneum and worsening inflammatory changes will need to cover for the enteric gram-negative both aerobes and anaerobes 2-patient is status post laparotomy small bowel resection and diverting colost omyoperative report did not mention any abscess and no culture 3-patient noticed to have drainage from the lower end of the incision which has been opened up Obtain CT Abdominal Pelvis with Some Phlegmon Changes and Free Air but Did Not Mention Any Abscess Collection 4patient white count has normalized abdominal culture growing E. coli, bacteroids and Daria 5patient to continue with the Zosyn and Eraxis. 6patient has developed significant excoriation to bilateral sacral area stage II ulcer will recommend dry Aquacel silver dressing and frequent changing her position Family at the bedside questions answered Dictation was produced using [employer] dictation software. please excuse any gramma tical, word or spelling errors. Time with Patient: Less than 30
[2024-05-28 16:42] LABS: Glucose,Whole Blood 112 mg/dL (70-110)
[2024-05-28 20:34] LABS: Glucose,Whole Blood 117 mg/dL (70-110)
[2024-05-29 06:18] LABS: Glucose,Whole Blood 102 mg/dL (70-110)
--- NOTE | 2024-05-29 09:41 | P.PN ---
Subjective Progress Note Date: 05/29/24 Patient states she feels better today. She states she will try to get out of bed today. On exam vital signs appear stable. Abdomen is soft. Colostomy is functioning. Wound is stable. Status post diverting colostomy for severe diverticulitis. Patient will continue receive supportive care. Objective - Vital Signs Vital signs: Vital Signs Temp 97.8 F 05/29/24 08:00 Pulse 113 H 05/29/24 08:00 Resp 18 05/29/24 08:00 BP 127/77 05/29/24 08:00 Pulse Ox 97 05/29/24 08:00 FiO2 Intake & Output 05/28/24 05/29/24 05/29/24 18:59 06:59 18:59 Intake Total 118 Output Total 605 810 Balance -487 -810 Weight 60 kg Intake: Oral 118 Output: Drainage 5 10 Right Abdomen 5 10 Urine 700 Stool 600 100 Other: Voiding Method Indwelling Catheter Indwelling Catheter - Labs CBC & Chem 7: 05/28/24 06:50 05/28/24 06:50 Labs: Abnormal Lab Results - Last 24 Hours (Table) 05/28/24 05/28/24 05/28/24 Range/Units 11:32 16:40 20:23 POC Glucose (mg/dL) 135 H 112 H 117 H (70-110) mg/dL Microbiology - Last 24 Hours (Table) 05/23/24 12:59 Blood Culture - Final Blood
[2024-05-29 09:59] LABS: African American GFR (CKD) >90 (>60 ml/min/1.73 sqM); Anion Gap 4 mmol/L; Blood Urea Nitrogen 11 mg/dL (7-17); Calcium 8.2 mg/dL (8.4-10.2); Carbon Dioxide 30 mmol/L (22-30); Chloride 104 mmol/L (98-107); Glucose 109 mg/dL (74-99); Non-African American GFR(CKD) >90 (>60 ml/min/1.73 sqM); Potassium 3.4 mmol/L (3.5-5.1); Sodium 138 mmol/L (137-145)
[2024-05-29 12:02] LABS: Glucose,Whole Blood 128 mg/dL (70-110)
[2024-05-29] MEDS: MAGNESIUM SULFATE-D5W PMX 1 GM in DEXTROSE/WATER 1 100ML.BAG IVPB ONE (13:02)
--- NOTE | 2024-05-29 15:05 | P.PN ---
Subjective Progress Note Date: 05/29/24 73-year-old female with past medical history significant for atrial fibrillation, AICD in place, ischemic cardiomyopathy with a EF 45%, coronary artery disease status post stenting August 2023, hypertension, hyperlipidemia who presented to ER with a complaint of defibrillator shock. Patient was discharged yesterday on oral antibiotics Ceftin and Flagyl, when patient was admitted for acute diverticulitis with perforation, infectious disease and general surgery was consulted and patient was continued on medical management during hospitalization and eventually discharged after clearance from general surgery after patient symptoms improved. Patient reported that she had of defibrillator shock yesterday, had 1 more shock earlier today leading to fall. Patient reported that she has not had a bowel movement. Patient has not started her home medication. Patient also reported fever and chills, reported abdominal distention, reported abdominal pain is same. Patient denied any headache, sore throat, productive cough, shortness of breath, chest pain, palpitations, dysuria urgency frequency weakness or numbness of extremities. Vitals: Temperature 100.3, heart rate 118, respiratory rate 18, blood pressure 101/62, saturating 94% on room air. Labs: WBCs 13.4, trending down, hemoglobin 11.3, platelets 453, INR 1.1, creatinine 0.49, BUN 16, normal ALT AST alkaline phosphatase and bilirubin. 05/17--patient was seen and examined today. Complaining of abdominal pain, nausea. Patient CT abdomen pelvis overnight showed acute diverticulitis with perforation with worsening pneumoperitoneum, general surgery consulted and following, planning for OR tomorrow as patient received Plavix today. Remains on amiodarone drip per cardiology. Monitor with telemetry. N.p.o., IV fluids, hold Farxiga. 05/18/2024 Patient is currently n.p.o. scheduled to undergo surgical intervention secondary to diverticulitis with perforation with general surgery. Will await surgical report. 05/19/2024 Patient is seen in follow-up this morning status post exploratory laparotomy, diverting colostomy and small bowel resection. Patient ostomy with some blood noted with no bowel activity as of yet. Patient blood pressures are on the lower side and receiving a bolus and will follow-up with repeat labs. Patient with decreased urine output although patient has not been n.p.o. for over 24 hours. White count is elevated although patient remains afebrile and kidney function mildly elevated as well recommend gentle hydration and follow-up on repeat labs. Patient continues with an NG tube for decompression with minimal frothy output noted. Discussed with the patient about ambulating and increasing activity as soon as possible and recommend PT/OT therapy evaluation. Patient also to continue with frequent offloading and position changes as patient is noted to have a stage II sacral decubitus ulcer that was present on admission. 05/20/2024 Patient is seen and evaluated in follow-up this morning with daughter at the bedside having some serous drainage output noted in ostomy. No bowel movement as of yet although patient did report she thought she noticed some air in the ostomy. Patient remains n.p.o. and continues with NG tube for decompression with multiple consultations following. Patient will continue on IV amiodarone and okay to resume IV heparin until tolerating oral intake per surgery to resume. Patient has not been up and walking and recommend PT/OT therapy evaluation and sitting up in the chair more often. Patient is extremely uncomfortable with the NG tube although understands its importance. Continue with mouth swabs frequently to the oral mucosa as it is extremely dry. Kidney function slightly worsened and sodium on the lower side recommend transitioning IV fluids with a decreased rate of D5 and normal saline as opposed to half- normal saline and recommend repeat labs. Urine output is fair and continues with indwelling Duarte catheter. Patient reporting some vaginal discomfort near the catheter and discussed with nursing staff about repositioning and continued Duarte catheter care and management. Blood pressures soft overall stable and will continue current regimen. Cardiology is following as well. 05/21--patient was seen and examined today. Patient had colostomy output, general surgery planning to DC NG tube. Plan to start ice chips and popsicles with slow advancement of diet. Patient currently on Zosyn and Eraxis per infectious disease. Will continue monitor labs. WBCs trending down to 14.5. Hemoglobin stable 9.7. Platelet normal. Sodium 130 potassium 4.3, BUN 32, creatinine 0.90. 05/22/2024--patient was seen and examined today. NG tube is out. Currently on ice chips with popsicles. Reported colostomy output. Vitals unremarkable, afebrile. WBC trending down 12.6. Hemoglobin stable 10.4. Platelet 363. Sodium improved to 136, potassium 3.4, BUN 28, creatinine 1.01. LFTs unremarkable. Cardiology following. Off amiodarone drip, currently on amiodarone 200 mg 3 times daily, metoprolol. Cardiology recommended to uptitrate rate metoprolol as tolerated. 05/23/2024 Patient is seen in follow-up today and is extremely lethargic and being followed by ID and general surgery. Patient wbc is elevated above [address] recommends a [address]. General surgery now agreeable and CT abdomen reordered. Foul purulent drainage noted out of the abdomen and cultures obtained and pending. Family requested a hospice informational with Joan. Patient is extremely weak and fatigues easily. Family reports she was hallucinating last night when no one was in the room. Recommend limiting narcotics and out of the bed in the chair more often especially during the day. Brown loose stool noted in the ostomy. 05/24/2024 Patient is seen in follow-up today much more awake and having conversation with family at the bedside. Patient kidney functions are improving and patient appears edematous in upper and lower extremities with significant pitting noted recommend Rocco wraps to bilateral lower extremities and decreasing IV fluids. Patient is maintained on clear liquids and encouraged oral intake. Patient maintained on antibiotics with infectious disease following for abdominal site infection and cultures are pending at this time. Patient continues to have gas and stool noted in the ostomy. 05/25/2024 Patient is seen in follow-up today being followed closely with general surgery and infectious disease. Patient is maintained on antibiotics and did have some lower abdominal incision cinda removed with continued persistent drainage noted. Ostomy is functioning with gas and stool and patient is maintained on clear liquid diet attempting to eat. Patient reports to feeling somewhat improved although was having significant swelling as well. Kidney functions have improved and will decrease hydration and give a dose of Lasix. Instructed nursing staff to use Rocco wraps from the toes to the knees and elevate lower extremities. Patient needs PT/OT therapy daily and getting out of the bed daily. Encouraged incentive spirometer use and continue deep breathing. Noted at the bedside concerned with her overall feelings of depression and being overwhelmed with her current medical conditions, will start low-dose antidepressant. 05/26/2024 Patient is seen in follow-up today currently attempting to work with physical therapy. Patient is a heavy 2 person assist and will most definitely require ECF on discharge. Cultures from abdominal wound site infection revealing E. coli and patient is maintained on Zosyn with infectious disease following. Patient continues to have some volume overload of upper and lower extremities and will give another dose of IV Lasix and monitor. Kidney functions have improved. Patient per surgery okay to be placed on anticoagulation orally and discontinue heparin drip. 05/27/2024 Patient is evaluated today in follow-up on the medical floor. Patient's family is concerned with her stage II sacral decub receiving zinc barrier paste and OPTi foam dressing. Will ask wound care to evaluate the wound. Continues on IV Zosyn for E. coli in the abdominal wound she is still continue with some drain age purulent. She is currently receiving IV Lasix for significant peripheral edema. Her sodium level is 138, BUN of 15, creatinine 0.47. Magnesium level of 1.7. Her albumin has been low. She remains on a full liquid diet. Is having stool from the ostomy. She has been resumed on Eliquis. 05/28/2024 Patient is evaluated in follow-up in the medical floor with her daughter at the bedside. Wound care consultation was placed slightly afternoon and then will be unable to see the patient until Thursday. Discussed with infectious disease requesting to review the imaging and wound further recommendations may need a surgical debridement pending on recommendations. Continue this patient IV Lasix daily she does continue with significant peripheral edema. Patient has been essentially bedrest fatigued and family with concerns about her activity level stating that just because she has a 2-3 person assist she should be up in the chair and out of bed and the longer that she lays in bed the week where she will be calm. Patient will require subacute rehab on discharge. Although patient states that she is fatigued and does not really want to get up out of bed and his been resistant to frequent repositioning for the stage II pressure injury. Discussed this with family as well. Blood work today reveals a white blood cell count of 10.2, hemoglobin 9.3, sodium of 138, potassium 3.6, BUN of 13, creatinine of 0.51. Magnesium 1.7. patient continues on IV Zosyn and IV anidulafungin has been added. 05/29/2024 Patient is evaluated today in follow up. Appears less fatigued. Has family at t he bedside. ID has added aquacel silver to the sacral wound. Discussed this with family. They are asking about antibiotic plan of discharge. They are still considering home on discharge vs. rehab. Patient remains on IV zosyn and IV anidulafungin. Continues with IV lasix. Abdominal wound is being packed. Making stool from the ostomy. Sodium 138, potassium 3.4, BUN 11, creatinine 0.41. REVIEW OF SYSTEMS: CONSTITUTIONAL: No fever or chills. Patient reports feeling lethargic CARDIOVASCULAR: No chest pain, palpitations or syncope. PULMONARY: Reports of intermittent shortness of breath, no cough, sore throat. GASTROINTESTINAL: Reports of occasional nausea, no vomiting, no diarrhea, reports continued abdominal tenderness. And not much of an appetite : No Dysuria, urgency, frequency. Extremities: No edema. NEUROLOGICAL: No headaches, reports extreme weakness and significant swelling PHYSICAL EXAMINATION: GENERAL: The patient is A&O x3, awake and alert having conversation, elderly a ppearing, ill-appearing, obese HEENT: EOMI, Sclerae anicteric, dry Mucous membranes Neck: Supple, Non tender, No JVD PULMONARY: diminshed breath sounds bilaterally, Equal breath souds B/L, No wheezing, No crackles. CARDIOVASCULAR: S1, S2 muffled, irregular, currently controlled ABDOMEN: Tender, less distended. Tenderness and discomfort noted on palpation ostomy noted on the left with some brown stool and gas. MUSCULOSKELETAL: No edema, No cyanosis. No clubbing. Normal ROM. Intact peripheral pulses. EXTREMITIES: No cyanosis, clubbing, bilateral upper and lower extremity swelling with some weeping, 2+ pitting NEUROLOGICAL: CN 2-12 grossly intact. No FND Skin: No Rash, stage II sacral decubitus ulcer Assessment: Acute diverticulitis with perforation: Worsening pneumoperitoneum with sepsis, present on admission status post exploratory laparotomy, diverting colostomy and small bowel resection Leukocytosis, secondary to above with concerns of abdominal surgical site infection, trending down, cultures from the surgical site showing E. coli Fevers, present on admission secondary to above, resolved defibrillator shock: With history of CAD status post stent in August [address] Hypertension, currently normotensive Hyperlipidemia Chronic systolic CHF, not in exacerbation, currently euvolemic A-fib with RVR, currently rate controlled Obesity with a BMI 31.0 Stage II sacral decubitus ulcer, present on admission GI prophylaxis DVT prophylaxis Full code Plan: Patient is currently status post exploratory laparotomy, diverting colostomy and small bowel resection with general surgery following Continued foul drainage noted and a few more cinda have been removed from the top of the surgical site for drainage Patient is noted to have a stage II sacral decubitus ulcer ID recommending aquacel silver change q 48 hours. as well as frequent offloading and Optifoam to the area with position changes every 2 hours; Wound care has been consulted. Follow-up on labs and replace electrolytes per protocol. Kidney functions improving and recommend discontinuing IV hydration as patient is significantly edematous with upper and lower extremity pitting noted. Recommend Rocco wraps to bilateral lower extremities from the toes up to the knees. Edema is improving and patient to continue on IV lasix daily. Family requested a hospice consult for informational in the event patient clinically deteriorates Patient has been resumed on eliquis; heparin discontinued. Downgraded to medical surgical unit. PT/OT therapy to evaluate as patient is significantly weak and not getting up out of bed at all. Recommend PT/OT therapy daily Encouraged incentive spirometer use at least 10 times every hour while awake. Wean oxygen to room air Overall prognosis is extremely guarded The impression and plan of care has been dictated by Anju Smiley, Nurse Practitioner as directed. Dr. Ashlie MD I have performed a history and examination and MDM of this patient, discussed the same with the dictator, and agree with the dictator's assessment and plan as written ,documented as a scribe. Based on total visit time, I have performed more than 50% of the visit. Objective - Vital Signs Vital signs: Vital Signs Temp 97.8 F 05/29/24 08:00 Pulse 113 H 05/29/24 08:00 Resp 18 05/29/24 08:00 BP 127/77 05/29/24 08:00 Pulse Ox 97 05/29/24 08:00 FiO2 Intake & Output 05/28/24 05/29/24 05/29/24 18:59 06:59 18:59 Intake Total 118 Output Total 605 810 Balance -487 -810 Weight 60 kg Intake: Oral 118 Output: Drainage 5 10 Right Abdomen 5 10 Urine 700 Stool 600 100 Other: Voiding Method Indwelling Catheter Indwelling Catheter - Labs CBC & Chem 7: 05/28/24 06:50 05/29/24 07:44 Labs: Abnormal Lab Results - Last 24 Hours (Table) 05/28/24 05/28/24 05/28/24 Range/Units 11:32 16:40 20:23 POC Glucose (mg/dL) 135 H 112 H 117 H (70-110) mg/dL Microbiology - Last 24 Hours (Table) 05/23/24 12:59 Blood Culture - Final Blood Assessment and Plan Time with Patient: Greater than 30
--- NOTE | 2024-05-29 16:39 | P.PN ---
Subjective Progress Note Date: 05/29/24 Principal diagnosis: Reason for follow-up is perforated diverticulitis and peritonitis Patient is a 73-year-old female with a past medical history significant for hypertension hyperlipidemia [place] atrial fibrillation, patient was recently admitted at this facility and has been diagnosed with a diverticulitis with microperforation pending bed to the hospital with a defibrillator shock with repeat CT abdominal pelvis shows worsening pneumoperitoneum, patient was taken to the OR on 05/18/2024 status post small bowel resection because of adhesion that is and diverting colostomy operative report did not mention any abscess and no culture On today's evaluation that is 05/29/2024, Patient is afebrile patient is currently on 2 L nasal cannula oxygen and denies having any shortness of breath, the patient denies any chest pain or cough, the patient denies any nausea vomit ing abdominal pain has decreased in intensity did have output in her colostomy. Patient did have creatinine 0.41, CBC was done today Objective - Vital Signs Vital signs: Vital Signs Temp 97.5 F L 05/29/24 12:00 Pulse 60 05/29/24 12:00 Resp 18 05/29/24 12:00 BP 105/57 05/29/24 12:00 Pulse Ox 97 05/29/24 12:00 FiO2 Intake & Output 05/28/24 05/29/24 05/29/24 18:59 06:59 18:59 Intake Total 118 780 Output Total 605 810 Balance -487 -810 780 Weight 60 kg Intake: Oral 118 780 Output: Drainage 5 10 Right Abdomen 5 10 Urine 700 Stool 600 100 Other: Voiding Method Indwelling Catheter Indwelling Catheter Indwelling Catheter - Exam GENERAL DESCRIPTION: An elderly female lying in bed in no distress RESPIRATORY SYSTEM: Unlabored breathing , decreased breath sounds at bases HEART: S1 S2 regular rate and rhythm , ABDOMEN: Soft , mild tenderness EXTREMITIES: No edema feet - Labs CBC & Chem 7: 05/28/24 06:50 05/29/24 07:44 Labs: Abnormal Lab Results - Last 24 Hours (Table) 05/28/24 05/28/24 05/29/24 Range/Units 16:40 20:23 07:44 Potassium 3.4 L (3.5-5.1) mmol/L Creatinine 0.41 L (0.52-1.04) mg/dL Glucose 109 H (74-99) mg/dL POC Glucose (mg/dL) 112 H 117 H (70-110) mg/dL Calcium 8.2 L (8.4-10.2) mg/dL 05/29/24 Range/Units 12:01 Potassium (3.5-5.1) mmol/L Creatinine (0.52-1.04) mg/dL Glucose (74-99) mg/dL POC Glucose (mg/dL) 128 H (70-110) mg/dL Calcium (8.4-10.2) mg/dL Microbiology - Last 24 Hours (Table) 05/23/24 12:59 Blood Culture - Final Blood Assessment and Plan (1) Intra-abdominal abscess Current Visit: Yes Status: Acute Code(s): K65.1 - PERITONEAL ABSCESS SNOMED Code(s): 43130599 (2) Peritonitis Current Visit: Yes Status: Acute Code(s): K65.9 - PERITONITIS, UNSPECIFIED SNOMED Code(s): 25040383 (3) Perforation of sigmoid colon due to diverticulitis Current Visit: No Status: Acute Code(s): K57.20 - DVTRCLI OF LG INT W PERFORATION AND ABSCESS W/O BLEEDING SNOMED Code(s): 9885453824108998 (4) Stage II pressure ulcer of sacral region Current Visit: Yes Status: Acute Code(s): L89.152 - PRESSURE ULCER OF SACRAL REGION, STAGE 2 SNOMED Code(s): 06852880455609 Plan: 1patient presented to hospital with sepsis in this patient who did have fever tachycardia elevated white count source is complicated diverticulitis now with evidence of pneumoperitoneum and worsening inflammatory changes will need to cover for the enteric gram-negative both aerobes and anaerobes 2-patient is status post laparotomy small bowel resection and diverting colostomyoperative report did not mention any abscess and no culture 3-patient noticed to have drainage from the lower end of the incision which has been opened up Obtain CT Abdominal Pelvis with Some Phlegmon Changes and Free Air but Did Not Mention Any Abscess Collection 4patient white count has normalized abdominal culture growing E. coli, bacteroids and Daria 5patient to continue with the Zosyn and Eraxis. We will transition to Rocephin and Flagyl and Eraxis on discharge x 10 days 6patient has developed significant excoriation to bilateral sacral area stage II ulcer, local wound care with dry Aquacel silver dressing and frequent changing her position Family at the bedside questions answered Dictation was produced using [employer] dictation software. please excuse any grammatical, word or spelling errors. Time with Patient: Less than 30
[2024-05-29 16:50] LABS: Glucose,Whole Blood 117 mg/dL (70-110)
[2024-05-29 20:47] LABS: Glucose,Whole Blood 111 mg/dL (70-110)
[2024-05-30 06:11] LABS: Glucose,Whole Blood 116 mg/dL (70-110)
[2024-05-30 08:42] LABS: African American GFR (CKD) >90 (>60 ml/min/1.73 sqM); Anion Gap 3 mmol/L; Blood Urea Nitrogen 11 mg/dL (7-17); Calcium 7.8 mg/dL (8.4-10.2); Carbon Dioxide 34 mmol/L (22-30); Chloride 99 mmol/L (98-107); Glucose 126 mg/dL (74-99); Non-African American GFR(CKD) >90 (>60 ml/min/1.73 sqM); Potassium 2.9 mmol/L (3.5-5.1); Sodium 136 mmol/L (137-145)
--- NOTE | 2024-05-30 10:02 | P.PN ---
Subjective Progress Note Date: 05/30/24 CHIEF COMPLAINT: Perforated diverticulitis HISTORY OF PRESENT ILLNESS: Postop day #12 status post exploratory laparotomy, diverting colostomy and small bowel resection. Patient reports he is feeling better. Her pain is controlled. She is tolerating the full liquid diet. Ostomy is functioning. VAUGHN drain with 5 cc of purulent output. There has been decreased drainage from the incision site. And drainage is becoming less purulent. With some serosanguineous drainage noted. Afebrile. Mildly tachy cardic. Potassium 2.9 PHYSICAL EXAM: VITAL SIGNS: Reviewed. GENERAL: no acute distress. ABDOMEN: Soft. Nondistended. Incisional dressings are clean. Currently with minimal purulent drainage. VAUGHN drain with minimal purulent drainage ostomy functioning. Neuro patient is more awake and alert. ASSESSMENT: 1. Perforated diverticulitis status post diverting colostomy 2. Hypokalemia. 5. Abdominal wound infection 6. Possible midline mesenteric abscess formation noted on CT scan PLAN: -Advance diet to dysphagia chopped -Potassium supplement ordered -Continue supportive care -Continue local wound care to abdominal incision -Continue antibiotics per ID service -Continue pain management -Encourage patient to increase activity level. Encourage patient to use incentive spirometer Physician Autoclave Operator note has been reviewed by physician. Signing provider agrees with the documented findings, assessment, and plan of care. Objective - Vital Signs Vital signs: Vital Signs Temp 97.7 F 05/30/24 05:00 Pulse 110 H 05/30/24 05:00 Resp 12 05/30/24 05:00 BP 117/78 05/30/24 05:00 Pulse Ox 98 05/30/24 05:00 FiO2 Intake & Output 05/29/24 05/30/24 05/30/24 18:59 06:59 18:59 Intake Total 1180 240 Output Total 1510 615 Balance -330 -375 Intake: Intake, IV Titration 400 Amount Anidulafungin 100 mg In 100 Sodium Chloride 0.9% 100 ml @ 84 mls/hr IVPB DAILY [facility] Rx#:[id number] Magnesium Sulfate-D5w Pmx 100 1 gm In Dextrose/Water 1 100ml.bag @ 100 mls/hr IVPB ONCE ONE Rx#: [id number] Piperacillin-Tazobactam 3 200 .375 gm In Sodium Chloride 0.9% 100 ml @ 25 mls/hr IVPB Q8HR [facility] Rx# :[id number] Oral 780 240 Output: Drainage 10 5 Right Abdomen 10 5 Urine 1500 600 Stool 10 Other: Voiding Method Indwelling Catheter Indwelling Catheter - Labs CBC & Chem 7: 05/28/24 06:50 05/30/24 08:04 Labs: Abnormal Lab Results - Last 24 Hours (Table) 05/29/24 05/29/24 05/29/24 Range/Units 07:44 12:01 16:48 Sodium (137-145) mmol/L Potassium 3.4 L (3.5-5.1) mmol/L Carbon Dioxide (22-30) mmol/L Creatinine 0.41 L (0.52-1.04) mg/dL Glucose 109 H (74-99) mg/dL POC Glucose (mg/dL) 128 H 117 H (70-110) mg/dL Calcium 8.2 L (8.4-10.2) mg/dL 05/29/24 05/30/24 05/30/24 Range/Units 20:28 06:00 08:04 Sodium 136 L (137-145) mmol/L Potassium 2.9 L (3.5-5.1) mmol/L Carbon Dioxide 34 H (22-30) mmol/L Creatinine 0.36 L (0.52-1.04) mg/dL Glucose 126 H (74-99) mg/dL POC Glucose (mg/dL) 111 H 116 H (70-110) mg/dL Calcium 7.8 L (8.4-10.2) mg/dL
[2024-05-30 11:48] LABS: Glucose,Whole Blood 137 mg/dL (70-110)
[2024-05-30] MEDS: POTASSIUM CHLORIDE ER 20 MEQ TAB.ER PO SCH ×2 (12:13→17:36)
[2024-05-30 12:20] VITALS: BMI 24.2
--- NOTE | 2024-05-30 12:29 | P.PN ---
Subjective Progress Note Date: 05/30/24 Principal diagnosis: Reason for follow-up is perforated diverticulitis and peritonitis Patient is a 73-year-old female with a past medical history significant for hypertension hyperlipidemia [place] atrial fibrillation, patient was recently admitted at this facility and has been diagnosed with a diverticulitis with microperforation pending bed to the hospital with a defibrillator shock with repeat CT abdominal pelvis shows worsening pneumoperitoneum, patient was taken to the OR on 05/18/2024 status post small bowel resection because of adhesion that is and diverting colostomy operative report did not mention any abscess and no culture On today's evaluation that is 05/30/2024, patient has been afebrile, patient is breathing comfortably and is currently on 2 L nasal oxygen, patient denies having any significant cough no chest pain shortness of breath, patient denies nausea vomiting abdominal pain has decreased in intensity drainage from the lower abdominal incision also decreased. The patient have a creatinine 0.36 no CBC was done today Objective - Vital Signs Vital signs: Vital Signs Temp 98.4 F 05/30/24 08:00 Pulse 124 H 05/30/24 08:00 Resp 16 05/30/24 08:00 BP 145/93 05/30/24 08:00 Pulse Ox 98 05/30/24 08:00 FiO2 Intake & Output 05/29/24 05/30/24 05/30/24 18:59 06:59 18:59 Intake Total 1180 240 Output Total 1510 615 Balance -330 -375 Weight 60 kg Intake: Intake, IV Titration 400 Amount Anidulafungin 100 mg In 100 Sodium Chloride 0.9% 100 ml @ 84 mls/hr IVPB DAILY [facility] Rx#:[id number] Magnesium Sulfate-D5w Pmx 100 1 gm In Dextrose/Water 1 100ml.bag @ 100 mls/hr IVPB ONCE ONE Rx#: [id number] Piperacillin-Tazobactam 3 200 .375 gm In Sodium Chloride 0.9% 100 ml @ 25 mls/hr IVPB Q8HR [facility] Rx# :[id number] Oral 780 240 Output: Drainage 10 5 Right Abdomen 10 5 Urine 1500 600 Stool 10 Other: Voiding Method Indwelling Catheter Indwelling Catheter - Exam GENERAL DESCRIPTION: An elderly female lying in bed in no distress RESPIRATORY SYSTEM: Unlabored breathing , decreased breath sounds at bases HEART: S1 S2 regular rate and rhythm , ABDOMEN: Soft , mild tenderness EXTREMITIES: No edema feet - Labs CBC & Chem 7: 05/28/24 06:50 05/30/24 08:04 Labs: Abnormal Lab Results - Last 24 Hours (Table) 05/29/24 05/29/24 05/30/24 Range/Units 16:48 20:28 06:00 Sodium (137-145) mmol/L Potassium (3.5-5.1) mmol/L Carbon Dioxide (22-30) mmol/L Creatinine (0.52-1.04) mg/dL Glucose (74-99) mg/dL POC Glucose (mg/dL) 117 H 111 H 116 H (70-110) mg/dL Calcium (8.4-10.2) mg/dL 05/30/24 05/30/24 Range/Units 08:04 11:45 Sodium 136 L (137-145) mmol/L Potassium 2.9 L (3.5-5.1) mmol/L Carbon Dioxide 34 H (22-30) mmol/L Creatinine 0.36 L (0.52-1.04) mg/dL Glucose 126 H (74-99) mg/dL POC Glucose (mg/dL) 137 H (70-110) mg/dL Calcium 7.8 L (8.4-10.2) mg/dL Assessment and Plan (1) Intra-abdominal abscess Current Visit: Yes Status: Acute Code(s): K65.1 - PERITONEAL ABSCESS SNOMED Code(s): 35082240 (2) Peritonitis Current Visit: Yes Status: Acute Code(s): K65.9 - PERITONITIS, UNSPECIFIED SNOMED Code(s): 32428977 (3) Perforation of sigmoid colon due to diverticulitis Current Visit: No Status: Acute Code(s): K57.20 - DVTRCLI OF LG INT W PERFORATION AND ABSCESS W/O BLEEDING SNOMED Code(s): 1404500497002882 (4) Stage II pressure ulcer of sacral region Current Visit: Yes Status: Acute Code(s): L89.152 - PRESSURE ULCER OF SACRAL REGION, STAGE 2 SNOMED Code(s): 21646782796678 Plan: 1patient presented to hospital with sepsis in this patient who did have fever tachycardia elevated white count source is complicated diverticulitis now with evidence of pneumoperitoneum and worsening inflammatory changes will need to cover for the enteric gram-negative both aerobes and anaerobes 2-patient is status post laparotomy small bowel resection and diverting colostomyoperative report did not mention any abscess and no culture 3-patient noticed to have drainage from the lower end of the incision which has been opened up Obtain CT Abdominal Pelvis with Some Phlegmon Changes and Free Air but Did Not Mention Any Abscess Collection 4patient white count has normalized abdominal culture growing E. coli, bacteroids and Daria 5patient has developed significant excoriation to bilateral sacral area stage II ulcer, local wound care with dry Aquacel silver dressing and frequent changing her position 6-patient to continue with the Zosyn and Eraxis. Plan is for Rocephin and Flagyl and Eraxis on discharge x 10 days Daughter is at the bedside questions answered Dictation was produced using [employer] dictation software. please excuse any grammatical, word or spelling errors. Time with Patient: Less than 30
[2024-05-30] MEDS: POTASSIUM CHLORIDE 10 MEQ in WATER FOR INJECTION 1 100ML.BAG IVPB SCH (15:18)
--- NOTE | 2024-05-30 15:24 | XR ---
EXAMINATION TYPE: XR chest 1V portable DATE OF EXAM: 05/30/2024 COMPARISON: 05/16/2024 INDICATION: CHF TECHNIQUE: Single frontal view of the chest is obtained. FINDINGS: The heart size is prominent. Pacemaker overlies left chest The pulmonary vasculature is normal. Left lower lobe infiltrate is present. There is blunting of left costophrenic angle. No pneumoperitoneum evident at this time. IMPRESSION: 1. Left lower lobe infiltrate. Correlate for atelectasis and pneumonia. 2. Cardiomegaly [facility], , 05/30/2024 3:21 PM
[2024-05-30 16:37] LABS: Glucose,Whole Blood 120 mg/dL (70-110)
[2024-05-30] MEDS: SPIRONOLACTONE 25 MG TAB PO SCH (17:12)
[2024-05-30] MEDS: THIAMINE 100 MG TAB PO SCH (17:12)
[2024-05-30 19:38] LABS: Potassium 3.4 mmol/L (3.5-5.1)
[2024-05-30] MEDS: lisinopriL 20 MG TAB PO SCH (19:48)
[2024-05-30 19:57] LABS: Glucose,Whole Blood 123 mg/dL (70-110)
[2024-05-30] MEDS: POTASSIUM BICARBONATE/CIT AC 20 MEQ TABLET.EFF PO SCH (20:30)
--- NOTE | 2024-05-31 02:04 | PN ---
PROGRESS NOTE DATE OF SERVICE: 05/30/2024 SUBJECTIVE: This is a 73-year-old woman, who was admitted with acute diverticulitis perforation, had surgery. The patient was in ICU, currently transferred to telemetry at this time. No chest pain. No palpitation. The patient complained of generalized weakness and tremors. PAST MEDICAL HISTORY: Reviewed. REVIEW OF SYSTEMS: Fourteen-point review is negative except as mentioned above. CURRENT MEDICATIONS: Reviewed include Eliquis, dose and rest of medications reviewed. PHYSICAL EXAMINATION: VITAL SIGNS: Pulse is 110, blood pressure 178/74, respirations 12. HEENT: Conjunctivae normal. CARDIOVASCULAR: S1, S2. RESPIRATIONS: Bilateral scattered rhonchi and crackles. ABDOMEN: Soft, status post surgery. NERVOUS SYSTEM: Nonfocal. LABORATORY DATA: Sodium 136, potassium 2.9. ASSESSMENT: 1. Acute diverticulitis perforation with pneumoperitoneum, sepsis, present on admission, status post exploratory laparotomy, diverting colostomy. 2. Leukocytosis. 3. Escherichia coli from the cultures. 4. Defibrillator shock. 5. AICD. 6. Hyperlipidemia. 7. Multiple complex medical issues. 8. Gait dysfunction. RECOMMENDATIONS AND DISCUSSION: This is a 73-year-old woman, who presented with multiple complex medical issues, we will monitor the patient closely. Continue the current management and continue symptomatic treatment. Otherwise, continue with antibiotics. We will replace lytes closely. The patient has severe hypokalemia. We will check the Mag also. Prognosis guarded because of multiple complex medical issues. Further recommendations to follow. See orders for further details. MMODL / IJN: [id number] /
[2024-05-31 06:09] LABS: Glucose,Whole Blood 96 mg/dL (70-110)
[2024-05-31 07:59] LABS: ALT 9 U/L (4-34); African American GFR (CKD) >90 (>60 ml/min/1.73 sqM); Anion Gap 4 mmol/L; Blood Urea Nitrogen 17 mg/dL (7-17); Calcium 8.1 mg/dL (8.4-10.2); Carbon Dioxide 33 mmol/L (22-30); Chloride 99 mmol/L (98-107); Glucose 109 mg/dL (74-99); Non-African American GFR(CKD) >90 (>60 ml/min/1.73 sqM); Sodium 136 mmol/L (137-145); Total Bilirubin 0.9 mg/dL (0.2-1.3)
[2024-05-31 08:05] LABS: Anisocytosis Slight; Basophils % (A) 0 %; Eosinophils % (A) 1 %; HCT 30.1 % (34.0-46.0); HGB 9.4 gm/dL (11.4-16.0); Hypochromasia Marked; Lymphocytes # (A) 0.7 k/uL (1.0-4.8); Lymphocytes % (A) 10 %; MCH 25.1 pg (25.0-35.0); MCHC 31.2 g/dL (31.0-37.0); MCV 80.7 fL (80.0-100.0); Mean Platelet Volume 7.7; Monocytes # (A) 0.4 k/uL (0-1.0); Monocytes % (A) 7 %; Neutrophils # (A) 5.4 k/uL (1.3-7.7); Neutrophils % (A) 82 %; Platelet Count 205 k/uL (150-450); RBC 3.73 m/uL (3.80-5.40); RDW 17.2 % (11.5-15.5); WBC 6.6 k/uL (3.8-10.6)
[2024-05-31 08:47] LABS: Potassium 6.6 mmol/L (3.5-5.1); Total Protein 5.9 g/dL (6.3-8.2)
[2024-05-31 08:48] LABS: AST 30 U/L (14-36); Albumin 2.2 g/dL (3.5-5.0); Alkaline Phosphatase 53 U/L (38-126)
[2024-05-31 11:39] LABS: Glucose,Whole Blood 125 mg/dL (70-110)
--- NOTE | 2024-05-31 11:53 | P.CONS ---
History of Present Illness - Reason for Consult Consult date: 05/31/24 wound care - History of Present Illness This is a 73-year-old patient being seen on 3 S. for a hospital-acquired stage II pressure ulcer. Patient has multiple open ulcerations with fat layer exposure to the right and left buttocks. Patient also has excoriation and maceration noted to the periwound. The wound edges are attached to the wound base no tunneling or undermining noted. Granulation seen throughout the wound bed with minimal slough and nonviable tissue present. Patient has been utilizing absorptive silver with positive results. Patient's past medical history significant for atrial fibrillation, hyperlipidemia, hypertension, [place] patient is a lifelong non-smoker denies diabetes. Review Of Systems: Constitutional: No fever, no chills, no night sweats. No weight change. No weakness, fatigue or lethargy. No daytime sleepiness. Integumentary:reports wounds, no lesions. No rash or pruritus. No unusual bruising. No change in hair or nails. Physical exam: General Appearance: Alert, cooperative, no distress, appears stated age. Skin: See HPI all other Skin color, texture, tugor normal, no rashes or lesions. Neurologic: Alert oriented x3 Assessment: 1. Stage II pressure ulcer right buttocks 2. Stage II pressure ulcer left buttocks Plan: 1.Apply absorptive silver moistened, zinc barrier cream to the periwound. Cover with sacral border foam or ABDs with tape. Turn patient every 2 hours. Utilize air-filled cushion while sitting. Review surface algorithm for appropriate offloading surface while in bed. Patient would benefit from advanced wound care and wound care setting. Would be happy to see her upon discharge. Patient and family verbalized understanding. Thank you for the consultation any questions please contact the wound care center DNP note has been reviewed and discussed with Dr. Babcock and the impression and plan of care has been directed as dictated. Past Medical History Past Medical History: Atrial Fibrillation, Hyperlipidemia, Hypertension, Myocardial Infarction ([place]) Last Myocardial Infarction Date:: 09/07/2023 History of Any Multi-Drug Resistant Organisms: None Reported Past Surgical History: No Surgical Hx Reported, Heart Catheterization With Stent Additional Past Surgical History / Comment(s): Cardiac stents Past Anesthesia/Blood Transfusion Reactions: No Reported Reaction Date of Last Stent Placement:: 09/07/2023 Past Psychological History: No Psychological Hx Reported Smoking Status: Never smoker Past Alcohol Use History: None Reported, Unable to Obtain Past Drug Use History: None Reported Medications and Allergies Home Medications Medication Instructions Recorded Confirmed Type Aspirin EC [Ecotrin Low Dose] 81 mg PO HS 12/02/17 05/16/24 History Atorvastatin [Lipitor] 40 mg PO DAILY #90 tab 09/11/23 05/16/24 Rx Clopidogrel [Plavix] 75 mg PO DAILY 30 Days #30 tab 09/11/23 05/16/24 Rx lisinopriL [Zestril] 20 mg PO BID #60 tab 09/11/23 05/16/24 Rx Empagliflozin [Jardiance] 10 mg PO DAILY 04/15/24 05/16/24 History Spironolactone 25 mg PO DAILY 04/15/24 05/16/24 History Metoprolol Succinate (ER) [Toprol 25 mg PO DAILY 05/09/24 05/16/24 History XL] Nitroglycerin Sl Tabs [Nitrostat] 0.4 mg SL Q5M PRN 05/09/24 05/16/24 History cefUROXime axetiL [Ceftin] 500 mg PO DIRECTED 05/16/24 05/16/24 History metroNIDAZOLE [Flagyl] 500 mg PO DIRECTED 05/16/24 05/16/24 History Allergies Allergy/AdvReac Type Severity Reaction Status Date / Time Iodinated Contrast Media Allergy Wheezing/hi Verified 05/16/24 14:02 ves iodine Allergy Wheezing/hi Verified 05/16/24 14:02 ves Physical Exam Vitals: Vital Signs Temp Pulse Resp BP BP Pulse Ox 05/31/24 11:03 108 H 17 05/31/24 09:37 108 H 17 122/83 98 05/31/24 08:12 97 05/31/24 00:00 65 17 110/83 98 05/30/24 19:40 98.0 F 79 17 124/82 97 05/30/24 17:39 97.8 F 120 H 16 135/85 97 05/30/24 14:00 98.0 F 111 H 16 142/89 94 L Intake and Output 05/30/24 05/31/24 05/31/24 22:59 06:59 14:59 Output Total 50 550 Balance -50 -550 Output: Urine 550 Stool 50 Other: Voiding Method Indwelling Catheter Indwelling Catheter Results CBC & Chem 7: 05/31/24 07:18 05/31/24 10:23 Labs: Abnormal Lab Results - Last 24 Hours (Table) 05/30/24 05/30/24 05/30/24 Range/Units 16:36 19:11 19:55 RBC (3.80-5.40) m/uL Hgb (11.4-16.0) gm/dL Hct (34.0-46.0) % RDW (11.5-15.5) % Lymphocytes # (1.0-4.8) k/uL Sodium 133 L (137-145) mmol/L Potassium 3.4 L (3.5-5.1) mmol/L Chloride 95 L (98-107) mmol/L Carbon Dioxide 36 H (22-30) mmol/L Creatinine (0.52-1.04) mg/dL Glucose (74-99) mg/dL POC Glucose (mg/dL) 120 H 123 H (70-110) mg/dL Calcium (8.4-10.2) mg/dL Total Protein (6.3-8.2) g/dL Albumin (3.5-5.0) g/dL 05/31/24 05/31/24 05/31/24 Range/Units 07:18 07:18 11:38 RBC 3.73 L (3.80-5.40) m/uL Hgb 9.4 L (11.4-16.0) gm/dL Hct 30.1 L (34.0-46.0) % RDW 17.2 H (11.5-15.5) % Lymphocytes # 0.7 L (1.0-4.8) k/uL Sodium 136 L (137-145) mmol/L Potassium 6.6 H* (3.5-5.1) mmol/L Chloride (98-107) mmol/L Carbon Dioxide 33 H (22-30) mmol/L Creatinine 0.39 L (0.52-1.04) mg/dL Glucose 109 H (74-99) mg/dL POC Glucose (mg/dL) 125 H (70-110) mg/dL Calcium 8.1 L (8.4-10.2) mg/dL Total Protein 5.9 L (6.3-8.2) g/dL Albumin 2.2 L (3.5-5.0) g/dL Assessment and Plan (1) Stage II pressure ulcer of left buttock Current Visit: Yes Status: Acute Code(s): L89.322 - PRESSURE ULCER OF LEFT BUTTOCK, STAGE 2 SNOMED Code(s): 63177875874811 (2) Stage II pressure ulcer of right buttock Current Visit: Yes Status: Acute Code(s): L89.312 - PRESSURE ULCER OF RIGHT BUTTOCK, STAGE 2 SNOMED Code(s): 81756115645609
--- NOTE | 2024-05-31 12:15 | P.PN ---
Subjective Progress Note Date: 05/31/24 Principal diagnosis: Reason for follow-up is perforated diverticulitis and peritonitis Patient is a 73-year-old female with a past medical history significant for hypertension hyperlipidemia [place] atrial fibrillation, patient was recently admitted at this facility and has been diagnosed with a diverticulitis with microperforation pending bed to the hospital with a defibrillator shock with repeat CT abdominal pelvis shows worsening pneumoperitoneum, patient was taken to the OR on 05/18/2024 status post small bowel resection because of adhesion that is and diverting colostomy operative report did not mention any abscess and no culture On today's evaluation that is 05/31/2024, Patient is afebrile this morning patient denies having any chest pain shortness of breath or cough, the patient is breathing comfortably and currently on 2 L nasal cannula oxygen, patient did have improvement in abdominal pain no nausea no vomiting. Patient white count 6.6, creatinine 0.39 Objective - Vital Signs Vital signs: Vital Signs Temp 98.0 F 05/30/24 19:40 Pulse 108 H 05/31/24 11:03 Resp 17 05/31/24 11:03 BP 122/83 05/31/24 09:37 Pulse Ox 98 05/31/24 09:37 FiO2 Intake & Output 05/30/24 05/31/24 05/31/24 18:59 06:59 18:59 Output Total 1400 600 Balance -1400 -600 Weight 60 kg Output: Urine 1300 550 Stool 100 50 Other: Voiding Method Indwelling Catheter Indwelling Catheter - Exam GENERAL DESCRIPTION: An elderly female lying in bed in no distress RESPIRATORY SYSTEM: Unlabored breathing , decreased breath sounds at bases HEART: S1 S2 regular rate and rhythm , ABDOMEN: Soft , mild tenderness, patient sacral excoriation has decreased in intensity EXTREMITIES: No edema feet - Labs CBC & Chem 7: 05/31/24 07:18 05/31/24 10:23 Labs: Abnormal Lab Results - Last 24 Hours (Table) 05/30/24 05/30/24 05/30/24 Range/Units 16:36 19:11 19:55 RBC (3.80-5.40) m/uL Hgb (11.4-16.0) gm/dL Hct (34.0-46.0) % RDW (11.5-15.5) % Lymphocytes # (1.0-4.8) k/uL Sodium 133 L (137-145) mmol/L Potassium 3.4 L (3.5-5.1) mmol/L Chloride 95 L (98-107) mmol/L Carbon Dioxide 36 H (22-30) mmol/L Creatinine (0.52-1.04) mg/dL Glucose (74-99) mg/dL POC Glucose (mg/dL) 120 H 123 H (70-110) mg/dL Calcium (8.4-10.2) mg/dL Total Protein (6.3-8.2) g/dL Albumin (3.5-5.0) g/dL 05/31/24 05/31/24 05/31/24 Range/Units 07:18 07:18 11:38 RBC 3.73 L (3.80-5.40) m/uL Hgb 9.4 L (11.4-16.0) gm/dL Hct 30.1 L (34.0-46.0) % RDW 17.2 H (11.5-15.5) % Lymphocytes # 0.7 L (1.0-4.8) k/uL Sodium 136 L (137-145) mmol/L Potassium 6.6 H* (3.5-5.1) mmol/L Chloride (98-107) mmol/L Carbon Dioxide 33 H (22-30) mmol/L Creatinine 0.39 L (0.52-1.04) mg/dL Glucose 109 H (74-99) mg/dL POC Glucose (mg/dL) 125 H (70-110) mg/dL Calcium 8.1 L (8.4-10.2) mg/dL Total Protein 5.9 L (6.3-8.2) g/dL Albumin 2.2 L (3.5-5.0) g/dL Assessment and Plan (1) Intra-abdominal abscess Current Visit: Yes Status: Acute Code(s): K65.1 - PERITONEAL ABSCESS SNOMED Code(s): 69776567 (2) Peritonitis Current Visit: Yes Status: Acute Code(s): K65.9 - PERITONITIS, UNSPECIFIED SNOMED Code(s): 97115896 (3) Perforation of sigmoid colon due to diverticulitis Current Visit: No Status: Acute Code(s): K57.20 - DVTRCLI OF LG INT W PERFORATION AND ABSCESS W/O BLEEDING SNOMED Code(s): 8264751567231005 (4) Stage II pressure ulcer of sacral region Current Visit: Yes Status: Acute Code(s): L89.152 - PRESSURE ULCER OF SACRAL REGION, STAGE 2 SNOMED Code(s): 06288032703175 Plan: 1patient presented to hospital with sepsis in this patient who did have fever tachycardia elevated white count source is complicated diverticulitis now with evidence of pneumoperitoneum and worsening inflammatory changes will need to cover for the enteric gram-negative both aerobes and anaerobes 2-patient is status post laparotomy small bowel resection and diverting colostomyoperative report did not mention any abscess and no culture 3-patient noticed to have drainage from the lower end of the incision which has been opened up Obtain CT Abdominal Pelvis with Some Phlegmon Changes and Free Air but Did Not Mention Any Abscess Collection 4patient white count has normalized abdominal culture growing E. coli, bacteroids and Daria 5patient has developed significant excoriation to bilateral gluteal/sacral area stage II ulcer, did have some clinical improvement, local wound care with dry Aquacel silver dressing and frequent changing her position 6-patient to continue with the Zosyn and Eraxis while inpatient and monitor clinical course closely Dictation was produced using [employer] dictation software. please excuse any grammatical, word or spelling errors. Time with Patient: Less than 30
--- NOTE | 2024-05-31 12:41 | P.PN ---
Subjective Progress Note Date: 05/31/24 CHIEF COMPLAINT: Perforated diverticulitis HISTORY OF PRESENT ILLNESS: Postop day #13 status post exploratory laparotomy, diverting colostomy and small bowel resection. Patient reports feeling better each day. She tolerated diet advancement. Her ostomy is functioning. Decreased drainage from the incision site. VAUGHN drain with minimal purulent output. Afebrile. Mildly tachycardic. WBC 6.6 Hgb 9.4 Potassium 6.6 now down to 3.6 Patient seen and examined with Dr. Valles PHYSICAL EXAM: VITAL SIGNS: Reviewed. GENERAL: no acute distress. ABDOMEN: Soft. Nondistended. Incisional dressings are clean. Decreased purulent drainage from incision site VAUGHN drain with minimal purulent drainage. o stomy functioning. Neuro patient is more awake and alert. ASSESSMENT: 1. Perforated diverticulitis status post diverting colostomy 2. Hypokalemia. 5. Abdominal wound infection 6. Possible midline mesenteric abscess formation noted on CT scan PLAN: -Continue dysphagia chopped diet -Reconsult PT OT to help ambulate patient and evaluate for ECF placement -Consults pillowcase cleaner for arranging ECF placement at discharge -Continue local wound care to abdominal incision -Continue antibiotics per ID service -Continue pain management -Encourage patient to increase activity level. Encourage patient to use incentive spirometer -Dr. Valles will be out of town starting tomorrow and will return on 06/06/2024. Dr. Haney and Dr. Mead will be covering his patients Physician Director Of Research And Development note has been reviewed by physician. Signing provider agrees with the documented findings, assessment, and plan of care. Objective - Vital Signs Vital signs: Vital Signs Temp 98.0 F 05/30/24 19:40 Pulse 108 H 05/31/24 11:03 Resp 17 05/31/24 11:03 BP 122/83 05/31/24 09:37 Pulse Ox 98 05/31/24 09:37 FiO2 Intake & Output 05/30/24 05/31/24 05/31/24 18:59 06:59 18:59 Output Total 1400 600 Balance -1400 -600 Weight 60 kg Output: Urine 1300 550 Stool 100 50 Other: Voiding Method Indwelling Catheter Indwelling Catheter - Labs CBC & Chem 7: 05/31/24 07:18 05/31/24 10:23 Labs: Abnormal Lab Results - Last 24 Hours (Table) 05/30/24 05/30/24 05/30/24 Range/Units 16:36 19:11 19:55 RBC (3.80-5.40) m/uL Hgb (11.4-16.0) gm/dL Hct (34.0-46.0) % RDW (11.5-15.5) % Lymphocytes # (1.0-4.8) k/uL Sodium 133 L (137-145) mmol/L Potassium 3.4 L (3.5-5.1) mmol/L Chloride 95 L (98-107) mmol/L Carbon Dioxide 36 H (22-30) mmol/L Creatinine (0.52-1.04) mg/dL Glucose (74-99) mg/dL POC Glucose (mg/dL) 120 H 123 H (70-110) mg/dL Calcium (8.4-10.2) mg/dL Total Protein (6.3-8.2) g/dL Albumin (3.5-5.0) g/dL 05/31/24 05/31/24 05/31/24 Range/Units 07:18 07:18 11:38 RBC 3.73 L (3.80-5.40) m/uL Hgb 9.4 L (11.4-16.0) gm/dL Hct 30.1 L (34.0-46.0) % RDW 17.2 H (11.5-15.5) % Lymphocytes # 0.7 L (1.0-4.8) k/uL Sodium 136 L (137-145) mmol/L Potassium 6.6 H* (3.5-5.1) mmol/L Chloride (98-107) mmol/L Carbon Dioxide 33 H (22-30) mmol/L Creatinine 0.39 L (0.52-1.04) mg/dL Glucose 109 H (74-99) mg/dL POC Glucose (mg/dL) 125 H (70-110) mg/dL Calcium 8.1 L (8.4-10.2) mg/dL Total Protein 5.9 L (6.3-8.2) g/dL Albumin 2.2 L (3.5-5.0) g/dL
[2024-05-31] MEDS: ZINC OXIDE 20% OINT 28.4 GM TUBE TOPICAL SCH (12:51)
[2024-05-31] MEDS: MULTIVITAMINS, THERA 1 EACH TAB PO SCH (12:51)
[2024-05-31] MEDS: FOLIC ACID 1 MG TAB PO SCH (12:51)
[2024-05-31] MEDS: PIPERACILLIN-TAZOBACTAM 3.375 GM in SODIUM CHLORIDE 0.9% 100 ML IVPB SCH (17:11)
[2024-06-01 06:14] LABS: Glucose,Whole Blood 102 mg/dL (70-110)
[2024-06-01 07:15] LABS: Anisocytosis Slight; Basophils % (A) 0 %; Eosinophils # (A) 0.2 k/uL (0-0.7); Eosinophils % (A) 3 %; HCT 31.2 % (34.0-46.0); HGB 9.2 gm/dL (11.4-16.0); Hypochromasia Marked; Lymphocytes # (A) 0.6 k/uL (1.0-4.8); Lymphocytes % (A) 11 %; MCH 24.5 pg (25.0-35.0); MCHC 29.5 g/dL (31.0-37.0); MCV 83.2 fL (80.0-100.0); Mean Platelet Volume 7.1; Monocytes # (A) 0.3 k/uL (0-1.0); Monocytes % (A) 6 %; Neutrophils # (A) 4.6 k/uL (1.3-7.7); Neutrophils % (A) 80 %; Platelet Count 254 k/uL (150-450); RBC 3.75 m/uL (3.80-5.40); RDW 17.2 % (11.5-15.5); WBC 5.7 k/uL (3.8-10.6)
[2024-06-01 07:38] LABS: African American GFR (CKD) >90 (>60 ml/min/1.73 sqM); Anion Gap -1 mmol/L; Blood Urea Nitrogen 13 mg/dL (7-17); Carbon Dioxide 38 mmol/L (22-30); Chloride 98 mmol/L (98-107); Glucose 107 mg/dL (74-99); Magnesium 1.6 mg/dL (1.6-2.3); Non-African American GFR(CKD) >90 (>60 ml/min/1.73 sqM); Potassium 3.5 mmol/L (3.5-5.1); Sodium 135 mmol/L (137-145)
--- NOTE | 2024-06-01 09:36 | P.PN ---
Subjective Progress Note Date: 05/31/24 73-year-old female with past medical history significant for atrial fibrillation, AICD in place, ischemic cardiomyopathy with a EF 45%, coronary artery disease status post stenting August 2023, hypertension, hyperlipidemia who presented to ER with a complaint of defibrillator shock. Patient was discharged yesterday on oral antibiotics Ceftin and Flagyl, when patient was admitted for acute diverticulitis with perforation, infectious disease and general surgery was consulted and patient was continued on medical management during hospitalization and eventually discharged after clearance from general surgery after patient symptoms improved. Patient reported that she had of defibrillator shock yesterday, had 1 more shock earlier today leading to fall. Patient reported that she has not had a bowel movement. Patient has not started her home medication. Patient also reported fever and chills, reported abdominal distention, reported abdominal pain is same. Patient denied any headache, sore throat, productive cough, shortness of breath, chest pain, palpitations, dysuria urgency frequency weakness or numbness of extremities. Vitals: Temperature 100.3, heart rate 118, respiratory rate 18, blood pressure 101/62, saturating 94% on room air. Labs: WBCs 13.4, trending down, hemoglobin 11.3, platelets 453, INR 1.1, creatinine 0.49, BUN 16, normal ALT AST alkaline phosphatase and bilirubin. 05/17--patient was seen and examined today. Complaining of abdominal pain, nausea. Patient CT abdomen pelvis overnight showed acute diverticulitis with perforation with worsening pneumoperitoneum, general surgery consulted and following, planning for OR tomorrow as patient received Plavix today. Remains on amiodarone drip per cardiology. Monitor with telemetry. N.p.o., IV fluids, hold Farxiga. 05/18/2024 Patient is currently n.p.o. scheduled to undergo surgical intervention secondary to diverticulitis with perforation with general surgery. Will await surgical report. 05/19/2024 Patient is seen in follow-up this morning status post exploratory laparotomy, diverting colostomy and small bowel resection. Patient ostomy with some blood noted with no bowel activity as of yet. Patient blood pressures are on the lower side and receiving a bolus and will follow-up with repeat labs. Patient with decreased urine output although patient has not been n.p.o. for over 24 hours. White count is elevated although patient remains afebrile and kidney function mildly elevated as well recommend gentle hydration and follow-up on repeat labs. Patient continues with an NG tube for decompression with minimal frothy output noted. Discussed with the patient about ambulating and increasing activity as soon as possible and recommend PT/OT therapy evaluation. Patient also to continue with frequent offloading and position changes as patient is noted to have a stage II sacral decubitus ulcer that was present on admission. 05/20/2024 Patient is seen and evaluated in follow-up this morning with daughter at the bedside having some serous drainage output noted in ostomy. No bowel movement as of yet although patient did report she thought she noticed some air in the ostomy. Patient remains n.p.o. and continues with NG tube for decompression with multiple consultations following. Patient will continue on IV amiodarone and okay to resume IV heparin until tolerating oral intake per surgery to resume. Patient has not been up and walking and recommend PT/OT therapy evaluation and sitting up in the chair more often. Patient is extremely uncomfortable with the NG tube although understands its importance. Continue with mouth swabs frequently to the oral mucosa as it is extremely dry. Kidney function slightly worsened and sodium on the lower side recommend transitioning IV fluids with a decreased rate of D5 and normal saline as opposed to half- normal saline and recommend repeat labs. Urine output is fair and continues with indwelling Duarte catheter. Patient reporting some vaginal discomfort near the catheter and discussed with nursing staff about repositioning and continued Duarte catheter care and management. Blood pressures soft overall stable and will continue current regimen. Cardiology is following as well. 05/21--patient was seen and examined today. Patient had colostomy output, general surgery planning to DC NG tube. Plan to start ice chips and popsicles with slow advancement of diet. Patient currently on Zosyn and Eraxis per infectious disease. Will continue monitor labs. WBCs trending down to 14.5. Hemoglobin stable 9.7. Platelet normal. Sodium 130 potassium 4.3, BUN 32, creatinine 0.90. 05/22/2024--patient was seen and examined today. NG tube is out. Currently on ice chips with popsicles. Reported colostomy output. Vitals unremarkable, afebrile. WBC trending down 12.6. Hemoglobin stable 10.4. Platelet 363. Sodium improved to 136, potassium 3.4, BUN 28, creatinine 1.01. LFTs unremarkable. Cardiology following. Off amiodarone drip, currently on amiodarone 200 mg 3 times daily, metoprolol. Cardiology recommended to uptitrate rate metoprolol as tolerated. 05/23/2024 Patient is seen in follow-up today and is extremely lethargic and being followed by ID and general surgery. Patient wbc is elevated above [address] recommends a CT. General surgery now agreeable and CT abdomen reordered. Foul purulent drainage noted out of the abdomen and cultures obtained and pending. Family requested a hospice informational with Joan. Patient is extremely weak and fatigues easily. Family reports she was hallucinating last night when no one was in the room. Recommend limiting narcotics and out of the bed in the chair more often especially during the day. Brown loose stool noted in the ostomy. 05/24/2024 Patient is seen in follow-up today much more awake and having conversation with family at the bedside. Patient kidney functions are improving and patient appears edematous in upper and lower extremities with significant pitting noted recommend Rocco wraps to bilateral lower extremities and decreasing IV fluids. Patient is maintained on clear liquids and encouraged oral intake. Patient maintained on antibiotics with infectious disease following for abdominal site infection and cultures are pending at this time. Patient continues to have gas and stool noted in the ostomy. 05/25/2024 Patient is seen in follow-up today being followed closely with general surgery and infectious disease. Patient is maintained on antibiotics and did have some lower abdominal incision cinda removed with continued persistent drainage noted. Ostomy is functioning with gas and stool and patient is maintained on clear liquid diet attempting to eat. Patient reports to feeling somewhat improved although was having significant swelling as well. Kidney functions have improved and will decrease hydration and give a dose of Lasix. Instructed nursing staff to use Rocco wraps from the toes to the knees and elevate lower extremities. Patient needs PT/OT therapy daily and getting out of the bed daily. Encouraged incentive spirometer use and continue deep breathing. Noted at the bedside concerned with her overall feelings of depression and being overwhelmed with her current medical conditions, will start low-dose antidepressant. 05/26/2024 Patient is seen in follow-up today currently attempting to work with physical therapy. Patient is a heavy 2 person assist and will most definitely require ECF on discharge. Cultures from abdominal wound site infection revealing E. coli and patient is maintained on Zosyn with infectious disease following. Patient continues to have some volume overload of upper and lower extremities and will give another dose of IV Lasix and monitor. Kidney functions have improved. Patient per surgery okay to be placed on anticoagulation orally and discontinue heparin drip. 05/27/2024 Patient is evaluated today in follow-up on the medical floor. Patient's family is concerned with her stage II sacral decub receiving zinc barrier paste and OPTi foam dressing. Will ask wound care to evaluate the wound. Continues on IV Zosyn for E. coli in the abdominal wound she is still continue with some drain age purulent. She is currently receiving IV Lasix for significant peripheral edema. Her sodium level is 138, BUN of 15, creatinine 0.47. Magnesium level of 1.7. Her albumin has been low. She remains on a full liquid diet. Is having stool from the ostomy. She has been resumed on Eliquis. 05/28/2024 Patient is evaluated in follow-up in the medical floor with her daughter at the bedside. Wound care consultation was placed slightly afternoon and then will be unable to see the patient until Thursday. Discussed with infectious disease requesting to review the imaging and wound further recommendations may need a surgical debridement pending on recommendations. Continue this patient IV Lasix daily she does continue with significant peripheral edema. Patient has been essentially bedrest fatigued and family with concerns about her activity level stating that just because she has a 2-3 person assist she should be up in the chair and out of bed and the longer that she lays in bed the week where she will be calm. Patient will require subacute rehab on discharge. Although patient states that she is fatigued and does not really want to get up out of bed and his been resistant to frequent repositioning for the stage II pressure injury. Discussed this with family as well. Blood work today reveals a white blood cell count of 10.2, hemoglobin 9.3, sodium of 138, potassium 3.6, BUN of 13, creatinine of 0.51. Magnesium 1.7. patient continues on IV Zosyn and IV anidulafungin has been added. 05/29/2024 Patient is evaluated today in follow up. Appears less fatigued. Has family at t he bedside. ID has added aquacel silver to the sacral wound. Discussed this with family. They are asking about antibiotic plan of discharge. They are still considering home on discharge vs. rehab. Patient remains on IV zosyn and IV anidulafungin. Continues with IV lasix. Abdominal wound is being packed. Making stool from the ostomy. Sodium 138, potassium 3.4, BUN 11, creatinine 0.41. 05/31/2024 Patient is seen and evaluated in follow-up with son and daughter at the bedside who are having long conversations regarding possible hospice. Family is concerned she is not improving and continues to decline. Patient's kidney functions have improved and overall edema of the upper and lower extremities have improved and will be transitioning from IV Lasix to oral. Patient with prolonged hospitalization and significant weakness recommend PT/OT therapy daily and would strongly recommend ECF for continued strength and mobility prior to returning home. Patient with surgery following status post ostomy and ostomy is functioning and maintained on IV antibiotics secondary to abdominal wall infec tion postsurgery. Case management/social work is following in regards to discharge planning. Daughter is considering taking the patient home with home care. Patient is afebrile and white count has normalized. Recommend increased activity as tolerated and sitting up in the chair at least 3 times daily with meals and elevating lower extremities while at rest. Replace electrolytes per protocol. REVIEW OF SYSTEMS: CONSTITUTIONAL: No fever or chills. Patient reports feeling continued weakness CARDIOVASCULAR: No chest pain, palpitations or syncope. PULMONARY: Reports of intermittent shortness of breath, no cough, sore mouth with eating GASTROINTESTINAL: Reports of occasional nausea, no vomiting, no diarrhea, reports continued abdominal tenderness. And not much of an appetite : No Dysuria, urgency, frequency. Extremities: No edema. NEUROLOGICAL: No headaches, reports extreme weakness and significant swelling but has improved in the upper and lower extremities PHYSICAL EXAMINATION: GENERAL: The patient is A&O x3, awake and alert having conversation, elderly appearing, ill-appearing, obese HEENT: EOMI, Sclerae anicteric, dry Mucous membranes Neck: Supple, Non tender, No JVD PULMONARY: diminshed breath sounds bilaterally, Equal breath souds B/L, No wheezing, No crackles. CARDIOVASCULAR: S1, S2 muffled, irregular, currently controlled ABDOMEN: Tender, less distended. Tenderness and discomfort noted on palpation ostomy noted on the left with some brown stool and gas. MUSCULOSKELETAL: No edema, No cyanosis. No clubbing. Normal ROM. Intact peripheral pulses. EXTREMITIES: No cyanosis, clubbing, bilateral upper and lower extremity swelling with some improvement, 2+ pitting NEUROLOGICAL: CN 2-12 grossly intact. No FND Skin: No Rash, stage II sacral decubitus ulcer Assessment: Acute diverticulitis with perforation: Worsening pneumoperitoneum with sepsis, present on admission status post exploratory laparotomy, diverting colostomy and small bowel resection Leukocytosis, secondary to above with concerns of abdominal surgical site infection, trending down, cultures from the surgical site showing E. coli Fevers, present on admission secondary to above, resolved defibrillator shock: With history of CAD status post stent in August [address] Hypertension, currently normotensive Hyperlipidemia Chronic systolic CHF, not in exacerbation, currently euvolemic A-fib with RVR, currently rate controlled Obesity with a BMI 31.0 Stage II sacral decubitus ulcer, present on admission GI prophylaxis DVT prophylaxis Full code Plan: Patient is currently status post exploratory laparotomy, diverting colostomy and small bowel resection with general surgery following Patient is maintained on IV antibiotics with ID following and will likely require IV antibiotic therapy on discharge. Patient does have a midline/PICC line and will discuss further with case management and ID regarding antibiotic coverage on discharge. General Surgery following patient is noted to have a stage II sacral decubitus ulcer ID recommending aquacel silver change q 48 hours. as well as frequent offloading and Optifoam to the area with position changes every 2 hours; Wound care has been consulted. Follow-up on labs and replace electrolytes per protocol. Kidney functions improving and will transition IV Lasix to oral Family requested a hospice consult for informational in the event patient clinically deteriorates. Family at the bedside again discussing possible hosp ice and had a lengthy discussion with daughter and son regarding overall prognosis. Patient has been resumed on eliquis; heparin discontinued. Downgraded to medical surgical unit. PT/OT therapy to evaluate as patient is significantly weak and not getting up out of bed at all. Recommend PT/OT therapy daily. Encourage patient and family members to have the patient out in the chair at least 3 times daily during meals Encouraged incentive spirometer use at least 10 times every hour while awake. Wean oxygen to room air Overall prognosis is extremely guarded The impression and plan of care has been dictated by Lisy Jones, Nurse Practitioner as directed. Dr. Shahzad MD I have performed a history and examination and MDM of this patient, discussed the same with the dictator, and agree with the dictator's assessment and plan as written ,documented as a scribe. Based on total visit time, I have performed more than 50% of the visit. Objective - Vital Signs Vital signs: Vital Signs Temp 98.0 F 05/30/24 19:40 Pulse 106 H 05/31/24 12:46 Resp 17 05/31/24 12:46 BP 129/79 05/31/24 12:46 Pulse Ox 96 05/31/24 12:46 FiO2 Intake & Output 05/30/24 05/31/24 05/31/24 18:59 06:59 18:59 Output Total 1400 600 Balance -1400 -600 Weight 60 kg Output: Urine 1300 550 Stool 100 50 Other: Voiding Method Indwelling Catheter Indwelling Catheter - Labs CBC & Chem 7: 06/01/24 06:54 06/01/24 06:54 Labs: Abnormal Lab Results - Last 24 Hours (Table) 05/30/24 05/30/24 05/30/24 Range/Units 16:36 19:11 19:55 RBC (3.80-5.40) m/uL Hgb (11.4-16.0) gm/dL Hct (34.0-46.0) % RDW (11.5-15.5) % Lymphocytes # (1.0-4.8) k/uL Sodium 133 L (137-145) mmol/L Potassium 3.4 L (3.5-5.1) mmol/L Chloride 95 L (98-107) mmol/L Carbon Dioxide 36 H (22-30) mmol/L Creatinine (0.52-1.04) mg/dL Glucose (74-99) mg/dL POC Glucose (mg/dL) 120 H 123 H (70-110) mg/dL Calcium (8.4-10.2) mg/dL Total Protein (6.3-8.2) g/dL Albumin (3.5-5.0) g/dL 05/31/24 05/31/24 05/31/24 Range/Units 07:18 07:18 11:38 RBC 3.73 L (3.80-5.40) m/uL Hgb 9.4 L (11.4-16.0) gm/dL Hct 30.1 L (34.0-46.0) % RDW 17.2 H (11.5-15.5) % Lymphocytes # 0.7 L (1.0-4.8) k/uL Sodium 136 L (137-145) mmol/L Potassium 6.6 H* (3.5-5.1) mmol/L Chloride (98-107) mmol/L Carbon Dioxide 33 H (22-30) mmol/L Creatinine 0.39 L (0.52-1.04) mg/dL Glucose 109 H (74-99) mg/dL POC Glucose (mg/dL) 125 H (70-110) mg/dL Calcium 8.1 L (8.4-10.2) mg/dL Total Protein 5.9 L (6.3-8.2) g/dL Albumin 2.2 L (3.5-5.0) g/dL
[2024-06-01] MEDS ORDERED: Magnesium Replacement Protocol 1 EACH MISC MISCELLANE PRN (09:40)
[2024-06-01] MEDS: MAGNESIUM SULFATE-D5W PMX 1 GM in DEXTROSE/WATER 1 100ML.BAG IVPB ONE (11:08)
--- NOTE | 2024-06-01 13:32 | P.PN ---
Subjective Progress Note Date: 06/01/24 CHIEF COMPLAINT: Perforated diverticulitis HISTORY OF PRESENT ILLNESS: Postop day #14 status post exploratory laparotomy, diverting colostomy and small bowel resection. Patient's ostomy is functioning. She did complain of some right sided abdominal pain. She did work with physical therapy yesterday. She did have abdominal pain with movement. Denies any nausea or vomiting. She is tolerating diet. Afebrile. WBC is 5.7. K3.5Family at bedside. Family has addressed with case mgr about possible subacute rehab versus hospice. Patient seen and examined with Dr. Haney who is covering for Dr. Valles PHYSICAL EXAM: VITAL SIGNS: Reviewed. GENERAL: no acute distress. ABDOMEN: Soft. Nondistended. Incisional dressings are clean. Decreased purulent drainage from incision site VAUGHN drain with minimal purulent drainage. ostomy functioning. Neuro patient is more awake and alert. ASSESSMENT: 1. Perforated diverticulitis status post diverting colostomy 2. Abdominal wound infection PLAN: -Continue dysphagia chopped diet -Continue to work with PT OT -bindery production manager working on discharge possible subacute rehab versus hospice -Continue local wound care to abdominal incision -Continue antibiotics per ID service -Continue pain management -Encourage patient to increase activity level. Encourage patient to use incentive spirometer Physician Court Transcriber note has been reviewed by physician. Signing provider agrees with the documented findings, assessment, and plan of care. Objective - Vital Signs Vital signs: Vital Signs Temp 97.6 F 06/01/24 11:05 Pulse 81 06/01/24 11:05 Resp 18 06/01/24 11:05 BP 126/76 06/01/24 11:05 Pulse Ox 99 06/01/24 11:05 FiO2 Intake & Output 05/31/24 06/01/24 06/01/24 18:59 06:59 18:59 Output Total 1000 Balance -1000 Output: Urine 1000 Other: Voiding Method Indwelling Catheter Indwelling Catheter Indwelling Catheter - Labs CBC & Chem 7: 06/01/24 06:54 06/01/24 06:54 Labs: Abnormal Lab Results - Last 24 Hours (Table) 06/01/24 06/01/24 Range/Units 06:54 06:54 RBC 3.75 L (3.80-5.40) m/uL Hgb 9.2 L (11.4-16.0) gm/dL Hct 31.2 L (34.0-46.0) % MCH 24.5 L (25.0-35.0) pg MCHC 29.5 L (31.0-37.0) g/dL RDW 17.2 H (11.5-15.5) % Lymphocytes # 0.6 L (1.0-4.8) k/uL Sodium 135 L (137-145) mmol/L Carbon Dioxide 38 H (22-30) mmol/L Creatinine 0.40 L (0.52-1.04) mg/dL Glucose 107 H (74-99) mg/dL Calcium 8.0 L (8.4-10.2) mg/dL
--- NOTE | 2024-06-02 07:39 | P.PN ---
Subjective Progress Note Date: 06/01/24 Principal diagnosis: Reason for follow-up is perforated diverticulitis and peritonitis Patient is a 73-year-old female with a past medical history significant for hypertension hyperlipidemia [place] atrial fibrillation, patient was recently admitted at this facility and has been diagnosed with a diverticulitis with microperforation pending bed to the hospital with a defibrillator shock with repeat CT abdominal pelvis shows worsening pneumoperitoneum, patient was taken to the OR on 05/18/2024 status post small bowel resection because of adhesion that is and diverting colostomy operative report did not mention any abscess and no culture On today's evaluation that is 06/01/2024,the patient denies any fever or any chills, patient is breathing comfortably on 2 L nasal cannula oxygen, the patient denies chest pain shortness of breath and no significant cough, patient abdominal pain has decreased in intensity no nausea vomiting tolerating her diet and did have output in her colostomy. Patient white count is 5.7, creatinine 0.40 Objective - Vital Signs Vital signs: Vital Signs Temp 97.6 F 06/01/24 11:05 Pulse 81 06/01/24 11:05 Resp 18 06/01/24 11:05 BP 126/76 06/01/24 11:05 Pulse Ox 99 06/01/24 11:05 FiO2 Intake & Output 05/31/24 06/01/24 06/01/24 18:59 06:59 18:59 Output Total 1000 Balance -1000 Output: Urine 1000 Other: Voiding Method Indwelling Catheter Indwelling Catheter Indwelling Catheter - Exam GENERAL DESCRIPTION: An elderly female lying in bed in no distress RESPIRATORY SYSTEM: Unlabored breathing , decreased breath sounds at bases HEART: S1 S2 regular rate and rhythm , ABDOMEN: Soft , mild tenderness, patient sacral excoriation has decreased in intensity EXTREMITIES: No edema feet - Labs CBC & Chem 7: 06/01/24 06:54 06/01/24 06:54 Labs: Abnormal Lab Results - Last 24 Hours (Table) 06/01/24 06/01/24 Range/Units 06:54 06:54 RBC 3.75 L (3.80-5.40) m/uL Hgb 9.2 L (11.4-16.0) gm/dL Hct 31.2 L (34.0-46.0) % MCH 24.5 L (25.0-35.0) pg MCHC 29.5 L (31.0-37.0) g/dL RDW 17.2 H (11.5-15.5) % Lymphocytes # 0.6 L (1.0-4.8) k/uL Sodium 135 L (137-145) mmol/L Carbon Dioxide 38 H (22-30) mmol/L Creatinine 0.40 L (0.52-1.04) mg/dL Glucose 107 H (74-99) mg/dL Calcium 8.0 L (8.4-10.2) mg/dL Assessment and Plan (1) Intra-abdominal abscess Current Visit: Yes Status: Acute Code(s): K65.1 - PERITONEAL ABSCESS SNOMED Code(s): 50569772 (2) Peritonitis Current Visit: Yes Status: Acute Code(s): K65.9 - PERITONITIS, UNSPECIFIED SNOMED Code(s): 65616719 (3) Perforation of sigmoid colon due to diverticulitis Current Visit: No Status: Acute Code(s): K57.20 - DVTRCLI OF LG INT W PERFORATION AND ABSCESS W/O BLEEDING SNOMED Code(s): 8970059947281704 (4) Stage II pressure ulcer of sacral region Current Visit: Yes Status: Acute Code(s): L89.152 - PRESSURE ULCER OF SACRAL REGION, STAGE 2 SNOMED Code(s): 03210516802449 Plan: 1patient presented to hospital with sepsis in this patient who did have fever tachycardia elevated white count source is complicated diverticulitis now with evidence of pneumoperitoneum and worsening inflammatory changes will need to cover for the enteric gram-negative both aerobes and anaerobes 2-patient is status post laparotomy small bowel resection and diverting colostomyoperative report did not mention any abscess and no culture 3-patient noticed to have drainage from the lower end of the incision which has been opened up Obtain CT Abdominal Pelvis with Some Phlegmon Changes and Free Air but Did Not Mention Any Abscess Collection 4patient abdominal culture growing E. coli, bacteroids and Daria 5patient has developed significant excoriation to bilateral gluteal/sacral area stage II ulcer, did have some clinical improvement, local wound care with dry Aquacel silver dressing and frequent changing her position 6-patient currently being treated with the Zosyn and Eraxis while inpatient and continue with supportive care Dictation was produced using dragon dictation software. please excuse any grammatical, word or spelling errors. Time with Patient: Less than 30
--- NOTE | 2024-06-02 09:17 | P.PN ---
Subjective Progress Note Date: 06/01/24 73-year-old female with past medical history significant for atrial fibrillation, AICD in place, ischemic cardiomyopathy with a EF 45%, coronary artery disease status post stenting August 2023, hypertension, hyperlipidemia who presented to ER with a complaint of defibrillator shock. Patient was discharged yesterday on oral antibiotics Ceftin and Flagyl, when patient was admitted for acute diverticulitis with perforation, infectious disease and general surgery was consulted and patient was continued on medical management during hospitalization and eventually discharged after clearance from general surgery after patient symptoms improved. Patient reported that she had of defibrillator shock yesterday, had 1 more shock earlier today leading to fall. Patient reported that she has not had a bowel movement. Patient has not started her home medication. Patient also reported fever and chills, reported abdominal distention, reported abdominal pain is same. Patient denied any headache, sore throat, productive cough, shortness of breath, chest pain, palpitations, dysuria urgency frequency weakness or numbness of extremities. Vitals: Temperature 100.3, heart rate 118, respiratory rate 18, blood pressure 101/62, saturating 94% on room air. Labs: WBCs 13.4, trending down, hemoglobin 11.3, platelets 453, INR 1.1, creatinine 0.49, BUN 16, normal ALT AST alkaline phosphatase and bilirubin. 05/17--patient was seen and examined today. Complaining of abdominal pain, nausea. Patient CT abdomen pelvis overnight showed acute diverticulitis with perforation with worsening pneumoperitoneum, general surgery consulted and following, planning for OR tomorrow as patient received Plavix today. Remains on amiodarone drip per cardiology. Monitor with telemetry. N.p.o., IV fluids, hold Farxiga. 05/18/2024 Patient is currently n.p.o. scheduled to undergo surgical intervention secondary to diverticulitis with perforation with general surgery. Will await surgical report. 05/19/2024 Patient is seen in follow-up this morning status post exploratory laparotomy, diverting colostomy and small bowel resection. Patient ostomy with some blood noted with no bowel activity as of yet. Patient blood pressures are on the lower side and receiving a bolus and will follow-up with repeat labs. Patient with decreased urine output although patient has not been n.p.o. for over 24 hours. White count is elevated although patient remains afebrile and kidney function mildly elevated as well recommend gentle hydration and follow-up on repeat labs. Patient continues with an NG tube for decompression with minimal frothy output noted. Discussed with the patient about ambulating and increasing activity as soon as possible and recommend PT/OT therapy evaluation. Patient also to continue with frequent offloading and position changes as patient is noted to have a stage II sacral decubitus ulcer that was present on admission. 05/20/2024 Patient is seen and evaluated in follow-up this morning with daughter at the bedside having some serous drainage output noted in ostomy. No bowel movement as of yet although patient did report she thought she noticed some air in the ostomy. Patient remains n.p.o. and continues with NG tube for decompression with multiple consultations following. Patient will continue on IV amiodarone and okay to resume IV heparin until tolerating oral intake per surgery to resume. Patient has not been up and walking and recommend PT/OT therapy evaluation and sitting up in the chair more often. Patient is extremely uncomfortable with the NG tube although understands its importance. Continue with mouth swabs frequently to the oral mucosa as it is extremely dry. Kidney function slightly worsened and sodium on the lower side recommend transitioning IV fluids with a decreased rate of D5 and normal saline as opposed to half- normal saline and recommend repeat labs. Urine output is fair and continues with indwelling Duarte catheter. Patient reporting some vaginal discomfort near the catheter and discussed with nursing staff about repositioning and continued Duarte catheter care and management. Blood pressures soft overall stable and will continue current regimen. Cardiology is following as well. 05/21--patient was seen and examined today. Patient had colostomy output, general surgery planning to DC NG tube. Plan to start ice chips and popsicles with slow advancement of diet. Patient currently on Zosyn and Eraxis per infectious disease. Will continue monitor labs. WBCs trending down to 14.5. Hemoglobin stable 9.7. Platelet normal. Sodium 130 potassium 4.3, BUN 32, creatinine 0.90. 05/22/2024--patient was seen and examined today. NG tube is out. Currently on ice chips with popsicles. Reported colostomy output. Vitals unremarkable, afebrile. WBC trending down 12.6. Hemoglobin stable 10.4. Platelet 363. Sodium improved to 136, potassium 3.4, BUN 28, creatinine 1.01. LFTs unremarkable. Cardiology following. Off amiodarone drip, currently on amiodarone 200 mg 3 times daily, metoprolol. Cardiology recommended to uptitrate rate metoprolol as tolerated. 05/23/2024 Patient is seen in follow-up today and is extremely lethargic and being followed by ID and general surgery. Patient wbc is elevated above [address] recommends a [address]. General surgery now agreeable and CT abdomen reordered. Foul purulent drainage noted out of the abdomen and cultures obtained and pending. Family requested a hospice informational with [facility]. Patient is extremely weak and fatigues easily. Family reports she was hallucinating last night when no one was in the room. Recommend limiting narcotics and out of the bed in the chair more often especially during the day. Brown loose stool noted in the ostomy. 05/24/2024 Patient is seen in follow-up today much more awake and having conversation with family at the bedside. Patient kidney functions are improving and patient appears edematous in upper and lower extremities with significant pitting noted recommend Rocco wraps to bilateral lower extremities and decreasing IV fluids. Patient is maintained on clear liquids and encouraged oral intake. Patient maintained on antibiotics with infectious disease following for abdominal site infection and cultures are pending at this time. Patient continues to have gas and stool noted in the ostomy. 05/25/2024 Patient is seen in follow-up today being followed closely with general surgery and infectious disease. Patient is maintained on antibiotics and did have some lower abdominal incision cinda removed with continued persistent drainage noted. Ostomy is functioning with gas and stool and patient is maintained on clear liquid diet attempting to eat. Patient reports to feeling somewhat improved although was having significant swelling as well. Kidney functions have improved and will decrease hydration and give a dose of Lasix. Instructed nursing staff to use Rocco wraps from the toes to the knees and elevate lower extremities. Patient needs PT/OT therapy daily and getting out of the bed daily. Encouraged incentive spirometer use and continue deep breathing. Noted at the bedside concerned with her overall feelings of depression and being overwhelmed with her current medical conditions, will start low-dose antidepressant. 05/26/2024 Patient is seen in follow-up today currently attempting to work with physical therapy. Patient is a heavy 2 person assist and will most definitely require ECF on discharge. Cultures from abdominal wound site infection revealing E. coli and patient is maintained on Zosyn with infectious disease following. Patient continues to have some volume overload of upper and lower extremities and will give another dose of IV Lasix and monitor. Kidney functions have improved. Patient per surgery okay to be placed on anticoagulation orally and discontinue heparin drip. 05/27/2024 Patient is evaluated today in follow-up on the medical floor. Patient's family is concerned with her stage II sacral decub receiving zinc barrier paste and OPTi foam dressing. Will ask wound care to evaluate the wound. Continues on IV Zosyn for E. coli in the abdominal wound she is still continue with some drain age purulent. She is currently receiving IV Lasix for significant peripheral edema. Her sodium level is 138, BUN of 15, creatinine 0.47. Magnesium level of 1.7. Her albumin has been low. She remains on a full liquid diet. Is having stool from the ostomy. She has been resumed on Eliquis. 05/28/2024 Patient is evaluated in follow-up in the medical floor with her daughter at the bedside. Wound care consultation was placed slightly afternoon and then will be unable to see the patient until Thursday. Discussed with infectious disease requesting to review the imaging and wound further recommendations may need a surgical debridement pending on recommendations. Continue this patient IV Lasix daily she does continue with significant peripheral edema. Patient has been essentially bedrest fatigued and family with concerns about her activity level stating that just because she has a 2-3 person assist she should be up in the chair and out of bed and the longer that she lays in bed the week where she will be calm. Patient will require subacute rehab on discharge. Although patient states that she is fatigued and does not really want to get up out of bed and his been resistant to frequent repositioning for the stage II pressure injury. Discussed this with family as well. Blood work today reveals a white blood cell count of 10.2, hemoglobin 9.3, sodium of 138, potassium 3.6, BUN of 13, creatinine of 0.51. Magnesium 1.7. patient continues on IV Zosyn and IV anidulafungin has been added. 05/29/2024 Patient is evaluated today in follow up. Appears less fatigued. Has family at t he bedside. ID has added aquacel silver to the sacral wound. Discussed this with family. They are asking about antibiotic plan of discharge. They are still considering home on discharge vs. rehab. Patient remains on IV zosyn and IV anidulafungin. Continues with IV lasix. Abdominal wound is being packed. Making stool from the ostomy. Sodium 138, potassium 3.4, BUN 11, creatinine 0.41. 05/31/2024 Patient is seen and evaluated in follow-up with son and daughter at the bedside who are having long conversations regarding possible hospice. Family is concerned she is not improving and continues to decline. Patient's kidney functions have improved and overall edema of the upper and lower extremities have improved and will be transitioning from IV Lasix to oral. Patient with prolonged hospitalization and significant weakness recommend PT/OT therapy daily and would strongly recommend ECF for continued strength and mobility prior to returning home. Patient with surgery following status post ostomy and ostomy is functioning and maintained on IV antibiotics secondary to abdominal wall infec tion postsurgery. Case management/social work is following in regards to discharge planning. Daughter is considering taking the patient home with home care. Patient is afebrile and white count has normalized. Recommend increased activity as tolerated and sitting up in the chair at least 3 times daily with meals and elevating lower extremities while at rest. Replace electrolytes per protocol. 06/01/2024 Patient is seen and evaluated in follow-up today and continues to be weak having difficulty working with physical therapy. Per nursing staff patient has been refusing to get out of bed and again discussed with the patient in detail the importance of getting up and sitting in the chair and working with physical therapy. Patient reports her legs are so weak and she is fearful of falling. Patient will most definitely need rehab on discharge and case management following working on possible [place]. Patient is afebrile maintained on antibiotics per ID recommendations and will discuss further regarding discharge planning. Patient to continue local wound care and frequent position changes and offloading to the buttocks area. Continue with wound care per ID recommendations. REVIEW OF SYSTEMS: CONSTITUTIONAL: No fever or chills. Patient reports feeling continued weakness CARDIOVASCULAR: No chest pain, palpitations or syncope. PULMONARY: Reports of intermittent shortness of breath, no cough, sore mouth with eating GASTROINTESTINAL: Reports of occasional nausea, no vomiting, no diarrhea, reports continued abdominal tenderness. not much of an appetite but attempting to eat more : No Dysuria, urgency, frequency. Extremities: No edema. NEUROLOGICAL: No headaches, reports extreme weakness and significant swelling but has improved in the upper and lower extremities PHYSICAL EXAMINATION: GENERAL: The patient is A&O x3, awake and alert having conversation, elderly appearing, ill-appearing, obese HEENT: EOMI, Sclerae anicteric, dry Mucous membranes Neck: Supple, Non tender, No JVD PULMONARY: diminshed breath sounds bilaterally, Equal breath souds B/L, No wheezing, No crackles. CARDIOVASCULAR: S1, S2 muffled, irregular, currently controlled ABDOMEN: Tender, less distended. Tenderness and discomfort noted on palpation ostomy noted on the left with some brown stool and gas. MUSCULOSKELETAL: No edema, No cyanosis. No clubbing. Normal ROM. Intact peripheral pulses. EXTREMITIES: No cyanosis, clubbing, bilateral upper and lower extremity swelling with some improvement, 2+ pitting NEUROLOGICAL: CN 2-12 grossly intact. No FND Skin: No Rash, stage II sacral decubitus ulcer Assessment: Acute diverticulitis with perforation: Worsening pneumoperitoneum with sepsis, present on admission status post exploratory laparotomy, diverting colostomy and small bowel resection Leukocytosis, secondary to above with concerns of abdominal surgical site infection, trending down, cultures from the surgical site showing E. coli Fevers, present on admission secondary to above, resolved defibrillator shock: With history of CAD status post stent in August [address] Hypertension, currently normotensive Hyperlipidemia Chronic systolic CHF, not in exacerbation, currently euvolemic A-fib with RVR, currently rate controlled Obesity with a BMI 31.0 Stage II sacral decubitus ulcer, present on admission GI prophylaxis DVT prophylaxis Full code Plan: Patient is currently status post exploratory laparotomy, diverting colostomy and small bowel resection with general surgery following Patient is maintained on IV antibiotics with ID following and will likely require IV antibiotic therapy on discharge. Patient does have a midline/PICC line and will discuss further with case management and ID regarding antibiotic coverage on discharge. General Surgery following patient is noted to have a stage II sacral decubitus ulcer ID recommending aquacel silver change q 48 hours. as well as frequent offloading and Optifoam to the area with position changes every 2 hours; Wound care following making recommendations Downgraded to medical surgical unit. PT/OT therapy to evaluate as patient is significantly weak and not getting up out of bed at all. Per nursing staff patient has been refusing to work with physical therapy. Reiterated the importance of working with physical therapy and attempting daily to build strength. Case management following and will most definitely need ECF for continued rehab. Recommend PT/OT therapy daily. Encou rage patient and family members to have the patient out in the chair at least 3 times daily during meals Encouraged incentive spirometer use at least 10 times every hour while awake. Wean oxygen to room air Overall prognosis is extremely guarded The impression and plan of care has been dictated by Lisy Jones, Nurse Practitioner as directed. Dr. Shahzad MD I have performed a history and examination and MDM of this patient, discussed the same with the dictator, and agree with the dictator's assessment and plan as written ,documented as a scribe. Based on total visit time, I have performed more than 50% of the visit. Objective - Vital Signs Vital signs: Vital Signs Temp 97.4 F L 05/31/24 20:35 Pulse 73 06/01/24 02:47 Resp 18 06/01/24 02:47 BP 134/80 06/01/24 02:47 Pulse Ox 99 06/01/24 02:47 FiO2 Intake & Output 05/31/24 06/01/24 06/01/24 18:59 06:59 18:59 Output Total 1000 Balance -1000 Output: Urine 1000 Other: Voiding Method Indwelling Catheter Indwelling Catheter - Labs CBC & Chem 7: 06/01/24 06:54 06/01/24 06:54 Labs: Abnormal Lab Results - Last 24 Hours (Table) 05/31/24 06/01/24 06/01/24 Range/Units 11:38 06:54 06:54 RBC 3.75 L (3.80-5.40) m/uL Hgb 9.2 L (11.4-16.0) gm/dL Hct 31.2 L (34.0-46.0) % MCH 24.5 L (25.0-35.0) pg MCHC 29.5 L (31.0-37.0) g/dL RDW 17.2 H (11.5-15.5) % Lymphocytes # 0.6 L (1.0-4.8) k/uL Sodium 135 L (137-145) mmol/L Carbon Dioxide 38 H (22-30) mmol/L Creatinine 0.40 L (0.52-1.04) mg/dL Glucose 107 H (74-99) mg/dL POC Glucose (mg/dL) 125 H (70-110) mg/dL Calcium 8.0 L (8.4-10.2) mg/dL
--- NOTE | 2024-06-02 11:16 | XR ---
EXAMINATION TYPE: XR chest 1V portable DATE OF EXAM: 06/02/2024 COMPARISON: 05/30/2024 INDICATION: Shortness of breath TECHNIQUE: Single frontal view of the chest is obtained. FINDINGS: The heart size is mildly prominent. Pacemaker overlies the left chest.. The pulmonary vasculature is normal. Some mild left lower lobe infiltrate is present. This may be partially obscured by the pacemaker. IMPRESSION: 1. Suggestion of the left lower lobe infiltrate. Correlate for atelectasis or pneumonia. 2. Cardiomegaly [facility], , 06/02/2024 11:14 AM
[2024-06-02] MEDS: IPRATROPIUM-ALBUTEROL 3 ML NEB INHALATION SCH (11:38)
[2024-06-02] MEDS: POTASSIUM CHLORIDE ER 20 MEQ TAB.ER PO SCH (11:57)
[2024-06-02] MEDS: FUROSEMIDE 40 MG TAB PO SCH (12:02)
--- NOTE | 2024-06-02 12:54 | P.PN ---
Subjective Progress Note Date: 06/02/24 CHIEF COMPLAINT: Perforated diverticulitis HISTORY OF PRESENT ILLNESS: Postop day #15 status post exploratory laparotomy, diverting colostomy and small bowel resection. Patient's ostomy is functioning. Patient reports her pain is tolerable. She is tolerating diet. She denies any nausea or vomiting. Patient reports not getting out of bed yesterday. Family has addressed with outpatient case manager about possible subacute rehab versus hospice. Afebrile. WBC 5.7 Patient seen and examined with Dr. Mead who is covering for Dr. Valles PHYSICAL EXAM: VITAL SIGNS: Reviewed. GENERAL: no acute distress. ABDOMEN: Soft. Nondistended. Incisional dressings are clean. Decreased purulent drainage from incision site. VAUGHN drain with minimal purulent drainage. ostomy functioning. Neuro patient is more awake and alert. ASSESSMENT: 1. Perforated diverticulitis status post diverting colostomy 2. Abdominal wound infection PLAN: -Continue dysphagia chopped diet -Continue to work with PT OT -catering and events manager working on discharge to possible subacute rehab versus hospice per family request -Continue local wound care to abdominal incision -Continue antibiotics per ID service -Continue pain management -Encourage patient to increase activity level. Encourage patient to use incentive spirometer -Patient stable for discharge from surgical standpoint when medically cleared Physician V[employer] Developer note has been reviewed by physician. Signing provider agrees with the documented findings, assessment, and plan of care. Objective - Vital Signs Vital signs: Vital Signs Temp 97.6 F 06/02/24 11:50 Pulse 66 06/02/24 11:50 Resp 20 06/02/24 11:50 BP 132/78 06/02/24 11:50 Pulse Ox 99 06/02/24 11:50 FiO2 Intake & Output 06/01/24 06/02/24 06/02/24 18:59 06:59 18:59 Intake Total 1140 Output Total 955 60 Balance 185 -60 Intake: Intake, IV Titration 300 Amount Anidulafungin 100 mg In 100 Sodium Chloride 0.9% 100 ml @ 84 mls/hr IVPB DAILY [facility] Rx#:[id number] Magnesium Sulfate-D5w Pmx 100 1 gm In Dextrose/Water 1 100ml.bag @ 100 mls/hr IVPB ONCE ONE Rx#: [id number] Piperacillin-Tazobactam 3 100 .375 gm In Sodium Chloride 0.9% 100 ml @ 25 mls/hr IVPB Q8HR [facility] Rx# :[id number] Oral 840 Output: Drainage 5 10 Right Abdomen 5 10 Urine 750 Stool 200 50 Other: Voiding Method Indwelling Catheter Indwelling Catheter Indwelling Catheter - Labs CBC & Chem 7: 06/01/24 06:54 06/01/24 06:54
--- NOTE | 2024-06-02 13:23 | P.PN ---
Subjective Progress Note Date: 06/02/24 73-year-old female with past medical history significant for atrial fibrillation, AICD in place, ischemic cardiomyopathy with a EF 45%, coronary artery disease status post stenting August 2023, hypertension, hyperlipidemia who presented to ER with a complaint of defibrillator shock. Patient was discharged yesterday on oral antibiotics Ceftin and Flagyl, when patient was admitted for acute diverticulitis with perforation, infectious disease and general surgery was consulted and patient was continued on medical management during hospitalization and eventually discharged after clearance from general surgery after patient symptoms improved. Patient reported that she had of defibrillator shock yesterday, had 1 more shock earlier today leading to fall. Patient reported that she has not had a bowel movement. Patient has not started her home medication. Patient also reported fever and chills, reported abdominal distention, reported abdominal pain is same. Patient denied any headache, sore throat, productive cough, shortness of breath, chest pain, palpitations, dysuria urgency frequency weakness or numbness of extremities. Vitals: Temperature 100.3, heart rate 118, respiratory rate 18, blood pressure 101/62, saturating 94% on room air. Labs: WBCs 13.4, trending down, hemoglobin 11.3, platelets 453, INR 1.1, creatinine 0.49, BUN 16, normal ALT AST alkaline phosphatase and bilirubin. 05/17--patient was seen and examined today. Complaining of abdominal pain, nausea. Patient CT abdomen pelvis overnight showed acute diverticulitis with perforation with worsening pneumoperitoneum, general surgery consulted and following, planning for OR tomorrow as patient received Plavix today. Remains on amiodarone drip per cardiology. Monitor with telemetry. N.p.o., IV fluids, hold Farxiga. 05/18/2024 Patient is currently n.p.o. scheduled to undergo surgical intervention secondary to diverticulitis with perforation with general surgery. Will await surgical report. 05/19/2024 Patient is seen in follow-up this morning status post exploratory laparotomy, diverting colostomy and small bowel resection. Patient ostomy with some blood noted with no bowel activity as of yet. Patient blood pressures are on the lower side and receiving a bolus and will follow-up with repeat labs. Patient with decreased urine output although patient has not been n.p.o. for over 24 hours. White count is elevated although patient remains afebrile and kidney function mildly elevated as well recommend gentle hydration and follow-up on repeat labs. Patient continues with an NG tube for decompression with minimal frothy output noted. Discussed with the patient about ambulating and increasing activity as soon as possible and recommend PT/OT therapy evaluation. Patient also to continue with frequent offloading and position changes as patient is noted to have a stage II sacral decubitus ulcer that was present on admission. 05/20/2024 Patient is seen and evaluated in follow-up this morning with daughter at the bedside having some serous drainage output noted in ostomy. No bowel movement as of yet although patient did report she thought she noticed some air in the ostomy. Patient remains n.p.o. and continues with NG tube for decompression with multiple consultations following. Patient will continue on IV amiodarone and okay to resume IV heparin until tolerating oral intake per surgery to resume. Patient has not been up and walking and recommend PT/OT therapy evaluation and sitting up in the chair more often. Patient is extremely uncomfortable with the NG tube although understands its importance. Continue with mouth swabs frequently to the oral mucosa as it is extremely dry. Kidney function slightly worsened and sodium on the lower side recommend transitioning IV fluids with a decreased rate of D5 and normal saline as opposed to half- normal saline and recommend repeat labs. Urine output is fair and continues with indwelling Duarte catheter. Patient reporting some vaginal discomfort near the catheter and discussed with nursing staff about repositioning and continued Duarte catheter care and management. Blood pressures soft overall stable and will continue current regimen. Cardiology is following as well. 05/21--patient was seen and examined today. Patient had colostomy output, general surgery planning to DC NG tube. Plan to start ice chips and popsicles with slow advancement of diet. Patient currently on Zosyn and Eraxis per infectious disease. Will continue monitor labs. WBCs trending down to 14.5. Hemoglobin stable 9.7. Platelet normal. Sodium 130 potassium 4.3, BUN 32, creatinine 0.90. 05/22/2024--patient was seen and examined today. NG tube is out. Currently on ice chips with popsicles. Reported colostomy output. Vitals unremarkable, afebrile. WBC trending down 12.6. Hemoglobin stable 10.4. Platelet 363. Sodium improved to 136, potassium 3.4, BUN 28, creatinine 1.01. LFTs unremarkable. Cardiology following. Off amiodarone drip, currently on amiodarone 200 mg 3 times daily, metoprolol. Cardiology recommended to uptitrate rate metoprolol as tolerated. 05/23/2024 Patient is seen in follow-up today and is extremely lethargic and being followed by ID and general surgery. Patient wbc is elevated above [address] recommends a CT. General surgery now agreeable and CT abdomen reordered. Foul purulent drainage noted out of the abdomen and cultures obtained and pending. Family requested a hospice informational with Joan. Patient is extremely weak and fatigues easily. Family reports she was hallucinating last night when no one was in the room. Recommend limiting narcotics and out of the bed in the chair more often especially during the day. Brown loose stool noted in the ostomy. 05/24/2024 Patient is seen in follow-up today much more awake and having conversation with family at the bedside. Patient kidney functions are improving and patient appears edematous in upper and lower extremities with significant pitting noted recommend Rocco wraps to bilateral lower extremities and decreasing IV fluids. Patient is maintained on clear liquids and encouraged oral intake. Patient maintained on antibiotics with infectious disease following for abdominal site infection and cultures are pending at this time. Patient continues to have gas and stool noted in the ostomy. 05/25/2024 Patient is seen in follow-up today being followed closely with general surgery and infectious disease. Patient is maintained on antibiotics and did have some lower abdominal incision cinda removed with continued persistent drainage noted. Ostomy is functioning with gas and stool and patient is maintained on clear liquid diet attempting to eat. Patient reports to feeling somewhat improved although was having significant swelling as well. Kidney functions have improved and will decrease hydration and give a dose of Lasix. Instructed nursing staff to use Rocco wraps from the toes to the knees and elevate lower extremities. Patient needs PT/OT therapy daily and getting out of the bed daily. Encouraged incentive spirometer use and continue deep breathing. Noted at the bedside concerned with her overall feelings of depression and being overwhelmed with her current medical conditions, will start low-dose antidepressant. 05/26/2024 Patient is seen in follow-up today currently attempting to work with physical therapy. Patient is a heavy 2 person assist and will most definitely require ECF on discharge. Cultures from abdominal wound site infection revealing E. coli and patient is maintained on Zosyn with infectious disease following. Patient continues to have some volume overload of upper and lower extremities and will give another dose of IV Lasix and monitor. Kidney functions have improved. Patient per surgery okay to be placed on anticoagulation orally and discontinue heparin drip. 05/27/2024 Patient is evaluated today in follow-up on the medical floor. Patient's family is concerned with her stage II sacral decub receiving zinc barrier paste and OPTi foam dressing. Will ask wound care to evaluate the wound. Continues on IV Zosyn for E. coli in the abdominal wound she is still continue with some drain age purulent. She is currently receiving IV Lasix for significant peripheral edema. Her sodium level is 138, BUN of 15, creatinine 0.47. Magnesium level of 1.7. Her albumin has been low. She remains on a full liquid diet. Is having stool from the ostomy. She has been resumed on Eliquis. 05/28/2024 Patient is evaluated in follow-up in the medical floor with her daughter at the bedside. Wound care consultation was placed slightly afternoon and then will be unable to see the patient until Thursday. Discussed with infectious disease requesting to review the imaging and wound further recommendations may need a surgical debridement pending on recommendations. Continue this patient IV Lasix daily she does continue with significant peripheral edema. Patient has been essentially bedrest fatigued and family with concerns about her activity level stating that just because she has a 2-3 person assist she should be up in the chair and out of bed and the longer that she lays in bed the week where she will be calm. Patient will require subacute rehab on discharge. Although patient states that she is fatigued and does not really want to get up out of bed and his been resistant to frequent repositioning for the stage II pressure injury. Discussed this with family as well. Blood work today reveals a white blood cell count of 10.2, hemoglobin 9.3, sodium of 138, potassium 3.6, BUN of 13, creatinine of 0.51. Magnesium 1.7. patient continues on IV Zosyn and IV anidulafungin has been added. 05/29/2024 Patient is evaluated today in follow up. Appears less fatigued. Has family at t he bedside. ID has added aquacel silver to the sacral wound. Discussed this with family. They are asking about antibiotic plan of discharge. They are still considering home on discharge vs. rehab. Patient remains on IV zosyn and IV anidulafungin. Continues with IV lasix. Abdominal wound is being packed. Making stool from the ostomy. Sodium 138, potassium 3.4, BUN 11, creatinine 0.41. 05/31/2024 Patient is seen and evaluated in follow-up with son and daughter at the bedside who are having long conversations regarding possible hospice. Family is concerned she is not improving and continues to decline. Patient's kidney functions have improved and overall edema of the upper and lower extremities have improved and will be transitioning from IV Lasix to oral. Patient with prolonged hospitalization and significant weakness recommend PT/OT therapy daily and would strongly recommend ECF for continued strength and mobility prior to returning home. Patient with surgery following status post ostomy and ostomy is functioning and maintained on IV antibiotics secondary to abdominal wall infec tion postsurgery. Case management/social work is following in regards to discharge planning. Daughter is considering taking the patient home with home care. Patient is afebrile and white count has normalized. Recommend increased activity as tolerated and sitting up in the chair at least 3 times daily with meals and elevating lower extremities while at rest. Replace electrolytes per protocol. 06/01/2024 Patient is seen and evaluated in follow-up today and continues to be weak having difficulty working with physical therapy. Per nursing staff patient has been refusing to get out of bed and again discussed with the patient in detail the importance of getting up and sitting in the chair and working with physical therapy. Patient reports her legs are so weak and she is fearful of falling. Patient will most definitely need rehab on discharge and case management following working on possible [place]. Patient is afebrile maintained on antibiotics per ID recommendations and will discuss further regarding discharge planning. Patient to continue local wound care and frequent position changes and offloading to the buttocks area. Continue with wound care per ID recommendations. 06/02/2024 Patient is seen and evaluated in follow-up today continues to be extremely weak and per nursing staff has not been up and moving and have strongly encouraged PT/OT therapy evaluation daily. Have transitioned Lasix to oral and will adjust potassium to twice daily. Patient not quite ready for discharge and will likely need ECF on discharge early next week. Infectious disease following and patient is maintained on IV antibiotics along with general surgery continuing on wound care. Patient to be offloading at least every 2 hours of the buttock area and use supportive cushions as well as sitting up in the chair more frequently. REVIEW OF SYSTEMS: CONSTITUTIONAL: No fever or chills. Patient reports feeling continued weakness CARDIOVASCULAR: No chest pain, palpitations or syncope. PULMONARY: Reports of intermittent shortness of breath, no cough, sore mouth with eating GASTROINTESTINAL: Reports of occasional nausea, no vomiting, no diarrhea, reports continued abdominal tenderness. not much of an appetite but attempting to eat more : No Dysuria, urgency, frequency. Extremities: No edema. NEUROLOGICAL: No headaches, reports extreme weakness and significant swelling but has improved in the upper and lower extremities PHYSICAL EXAMINATION: GENERAL: The patient is A&O x3, awake and alert having conversation, elderly appearing, ill-appearing, obese HEENT: EOMI, Sclerae anicteric, dry Mucous membranes Neck: Supple, Non tender, No JVD PULMONARY: diminshed breath sounds bilaterally, Equal breath souds B/L, No wheezing, No crackles. CARDIOVASCULAR: S1, S2 muffled, irregular, currently controlled ABDOMEN: Tender, less distended. Tenderness and discomfort noted on palpation ostomy noted on the left with some brown stool and gas. MUSCULOSKELETAL: No edema, No cyanosis. No clubbing. Normal ROM. Intact peripheral pulses. EXTREMITIES: No cyanosis, clubbing, bilateral upper and lower extremity swelling with some improvement, 2+ pitting NEUROLOGICAL: CN 2-12 grossly intact. No FND Skin: No Rash, stage II sacral decubitus ulcer Assessment: Acute diverticulitis with perforation: Worsening pneumoperitoneum with sepsis, present on admission status post exploratory laparotomy, diverting colostomy and small bowel resection Leukocytosis, secondary to above with concerns of abdominal surgical site infection, improved, cultures from the surgical site showing E. coli Fevers, present on admission secondary to above, resolved defibrillator shock: With history of CAD status post stent in August [address] Hypertension, currently normotensive Hyperlipidemia Chronic systolic CHF, not in exacerbation, currently euvolemic A-fib with RVR, currently rate controlled Obesity with a BMI 31.0 Stage II sacral decubitus ulcer, present on admission GI prophylaxis DVT prophylaxis Full code Plan: Patient is currently status post exploratory laparotomy, diverting colostomy and small bowel resection with general surgery following Patient is maintained on IV antibiotics with ID following and will potentially discharge on oral antibiotic therapy and will discuss further with infectious disease closer to discharge, possibly early next week to ECF General Surgery following patient is noted to have a stage II sacral decubitus ulcer ID recommending aquacel silver change q 48 hours. as well as frequent offloading and Optifoam to the area with position changes every 2 hours; Wound care following making recommendations Downgraded to medical surgical unit. IV Lasix discontinued and have transition to oral Lasix daily and recommend potassium replacement to be supplemented daily. Encouraged oral intake with small frequent meals and patient is maintained on dysphagia chopped diet. PT/OT therapy to evaluate as patient is significantly weak and not getting up out of bed at all. Per nursing staff patient has been refusing to work with physical therapy. Reiterated the importance of working with physical therapy and attempting daily to build strength. Case management following and will most definitely need ECF for continued rehab. Recommend PT/OT therapy daily. Encourage patient and family members to have the patient out in the chair at least 3 times daily during meals Encouraged incentive spirometer use at least 10 times every hour while awake. Wean oxygen to room air Overall prognosis is extremely guarded The impression and plan of care has been dictated by Lisy Jones, Nurse Practitioner as directed. Dr. Shahzad MD I have performed a history and examination and MDM of this patient, discussed th e same with the dictator, and agree with the dictator's assessment and plan as written ,documented as a scribe. Based on total visit time, I have performed more than 50% of the visit. Objective - Vital Signs Vital signs: Vital Signs Temp 97.0 F L 06/02/24 07:32 Pulse 77 06/02/24 07:32 Resp 16 06/02/24 07:32 BP 147/68 06/02/24 07:32 Pulse Ox 99 06/02/24 07:32 FiO2 Intake & Output 06/01/24 06/02/24 06/02/24 18:59 06:59 18:59 Intake Total 1140 Output Total 955 60 Balance 185 -60 Intake: Intake, IV Titration 300 Amount Anidulafungin 100 mg In 100 Sodium Chloride 0.9% 100 ml @ 84 mls/hr IVPB DAILY [facility] Rx#:[id number] Magnesium Sulfate-D5w Pmx 100 1 gm In Dextrose/Water 1 100ml.bag @ 100 mls/hr IVPB ONCE ONE Rx#: [id number] Piperacillin-Tazobactam 3 100 .375 gm In Sodium Chloride 0.9% 100 ml @ 25 mls/hr IVPB Q8HR [facility] Rx# :[id number] Oral 840 Output: Drainage 5 10 Right Abdomen 5 10 Urine 750 Stool 200 50 Other: Voiding Method Indwelling Catheter Indwelling Catheter - Labs CBC & Chem 7: 06/01/24 06:54 06/01/24 06:54
--- NOTE | 2024-06-02 22:38 | P.PN ---
Subjective Progress Note Date: 06/02/24 Principal diagnosis: Reason for follow-up is perforated diverticulitis and peritonitis Patient is a 73-year-old female with a past medical history significant for hypertension hyperlipidemia AR atrial fibrillation, patient was recently admitted at this facility and has been diagnosed with a diverticulitis with microperforation pending bed to the hospital with a defibrillator shock with repeat CT abdominal pelvis shows worsening pneumoperitoneum, patient was taken to the OR on 05/18/2024 status post small bowel resection because of adhesion that is and diverting colostomy operative report did not mention any abscess and no culture On today's evaluation that is 06/02/2024,the patient remains to be afebrile, patient is on 2 L nasal cannula supplemental oxygen and denies any shortness of breath no chest pain or cough.Patient denies having any nausea or vomiting, abdominal pain has decreased in intensity oral drainage from lower abdominal wound has decreased and did have output in colostomy. Patient white count is 5.7, creatinine 0.40 Objective - Vital Signs Vital signs: Vital Signs Temp 97.0 F L 06/02/24 07:32 Pulse 64 06/02/24 11:50 Resp 16 06/02/24 07:32 BP 147/68 06/02/24 07:32 Pulse Ox 99 06/02/24 07:32 FiO2 Intake & Output 06/01/24 06/02/24 06/02/24 18:59 06:59 18:59 Intake Total 1140 Output Total 955 60 Balance 185 -60 Intake: Intake, IV Titration 300 Amount Anidulafungin 100 mg In 100 Sodium Chloride 0.9% 100 ml @ 84 mls/hr IVPB DAILY [facility] Rx#:[id number] Magnesium Sulfate-D5w Pmx 100 1 gm In Dextrose/Water 1 100ml.bag @ 100 mls/hr IVPB ONCE ONE Rx#: [id number] Piperacillin-Tazobactam 3 100 .375 gm In Sodium Chloride 0.9% 100 ml @ 25 mls/hr IVPB Q8HR [facility] Rx# :[id number] Oral 840 Output: Drainage 5 10 Right Abdomen 5 10 Urine 750 Stool 200 50 Other: Voiding Method Indwelling Catheter Indwelling Catheter Indwelling Catheter - Exam GENERAL DESCRIPTION: An elderly female lying in bed in no distress RESPIRATORY SYSTEM: Unlabored breathing , decreased breath sounds at bases HEART: S1 S2 regular rate and rhythm , ABDOMEN: Soft , mild tenderness, patient overall drainage from the abdominal incision has decreased EXTREMITIES: No edema feet - Labs CBC & Chem 7: 06/01/24 06:54 06/01/24 06:54 Assessment and Plan (1) Intra-abdominal abscess Current Visit: Yes Status: Acute Code(s): K65.1 - PERITONEAL ABSCESS SNOMED Code(s): 69941639 (2) Peritonitis Current Visit: Yes Status: Acute Code(s): K65.9 - PERITONITIS, UNSPECIFIED SNOMED Code(s): 14952450 (3) Perforation of sigmoid colon due to diverticulitis Current Visit: No Status: Acute Code(s): K57.20 - DVTRCLI OF LG INT W PERFORATION AND ABSCESS W/O BLEEDING SNOMED Code(s): 7823150744004345 (4) Stage II pressure ulcer of sacral region Current Visit: Yes Status: Acute Code(s): L89.152 - PRESSURE ULCER OF SACRAL REGION, STAGE 2 SNOMED Code(s): 25634942695333 Plan: 1patient presented to hospital with sepsis in this patient who did have fever tachycardia elevated white count source is complicated diverticulitis now with evidence of pneumoperitoneum and worsening inflammatory changes will need to cover for the enteric gram-negative both aerobes and anaerobes 2-patient is status post laparotomy small bowel resection and diverting colostomyoperative report did not mention any abscess and no culture 3-patient noticed to have drainage from the lower end of the incision which has been opened up Obtain CT Abdominal Pelvis with Some Phlegmon Changes and Free Air but Did Not Mention Any Abscess Collection 4patient abdominal culture growing E. coli, bacteroids and Daria 5patient has developed significant excoriation to bilateral gluteal/sacral area stage II ulcer, did have some clinical improvement we will continue local wound care with dry Aquacel silver dressing and frequent changing her position 6-patient is afebrile white count has been normal currently being treated with the Zosyn and Eraxis care discussed with the surgical team and daughter at the bedside Dictation was produced using clickTRUE dictation software. please excuse any grammatical, word or spelling errors. Time with Patient: Less than 30
[2024-06-03 08:42] LABS: African American GFR (CKD) >90 (>60 ml/min/1.73 sqM); Anion Gap 2 mmol/L; Blood Urea Nitrogen 11 mg/dL (7-17); Calcium 8.2 mg/dL (8.4-10.2); Carbon Dioxide 34 mmol/L (22-30); Chloride 98 mmol/L (98-107); Glucose 79 mg/dL (74-99); Non-African American GFR(CKD) >90 (>60 ml/min/1.73 sqM); Potassium 4.3 mmol/L (3.5-5.1); Sodium 134 mmol/L (137-145)
--- NOTE | 2024-06-03 09:23 | P.PN ---
Subjective Progress Note Date: 06/03/24 CHIEF COMPLAINT: Perforated diverticulitis HISTORY OF PRESENT ILLNESS: Postop day #16 status post exploratory laparotomy, diverting colostomy and small bowel resection. Patient's ostomy is functioning. Patient reports her pain is controlled. Patient feels weak. She reports that she had difficulty getting up with physical therapy yesterday. She is tolerating diet. She denies any nausea or vomiting. Patient continues to have purulent drainage from the incision site. Minimal drainage from VAUGHN drain. Family has addressed with telephonic nurse case manager about possible subacute rehab versus hospice. Afebrile. WBC 5.7 Patient seen and examined with Dr. Mead who is covering for Dr. Valles PHYSICAL EXAM: VITAL SIGNS: Reviewed. GENERAL: no acute distress. ABDOMEN: Soft. Nondistended. Incisional dressings are clean. Decreased purulent drainage from incision site. VAUGHN drain with minimal purulent drainage. ostomy functioning. Neuro patient is awake and alert and orientated x3 ASSESSMENT: 1. Perforated diverticulitis status post diverting colostomy 2. Abdominal wound infection PLAN: -Continue dysphagia chopped diet -Continue to work with PT OT -senior payroll manager working on discharge to possible subacute rehab versus hospice per family request -Continue local wound care to abdominal incision -Continue antibiotics per ID service -Continue pain management -Encouraged to drink protein supplements to help with wound healing -Encourage patient to increase activity level. Encourage patient to use incentive spirometer -Patient stable for discharge to [facility] from surgical standpoint when medically cleared Physician Microbiology Instructor note has been reviewed by physician. Signing provider agrees with the documented findings, assessment, and plan of care. Objective - Vital Signs Vital signs: Vital Signs Temp 98.2 F 06/03/24 07:42 Pulse 92 06/03/24 07:44 Resp 16 06/03/24 07:42 BP 148/91 06/03/24 07:42 Pulse Ox 98 06/03/24 07:42 FiO2 Intake & Output 06/02/24 06/03/24 06/03/24 18:59 06:59 18:59 Intake Total 540 Output Total 760 450 300 Balance -220 -450 -300 Weight 60 kg Intake: Oral 540 Output: Drainage 10 Right Abdomen 10 Urine 650 400 300 Stool 100 50 Other: Voiding Method External Catheter External Catheter External Catheter # Voids 1 # Bowel Movements 1 - Labs CBC & Chem 7: 06/01/24 06:54 06/03/24 06:55 Labs: Abnormal Lab Results - Last 24 Hours (Table) 06/03/24 Range/Units 06:55 Sodium 134 L (137-145) mmol/L Carbon Dioxide 34 H (22-30) mmol/L Creatinine 0.39 L (0.52-1.04) mg/dL Calcium 8.2 L (8.4-10.2) mg/dL
[2024-06-03 09:34] LABS: Anisocytosis Slight; Basophils % (A) 0 %; Eosinophils # (A) 0.2 k/uL (0-0.7); Eosinophils % (A) 3 %; HCT 32.5 % (34.0-46.0); HGB 9.8 gm/dL (11.4-16.0); Hypochromasia Marked; Lymphocytes # (A) 0.5 k/uL (1.0-4.8); Lymphocytes % (A) 10 %; MCH 24.9 pg (25.0-35.0); MCHC 30.2 g/dL (31.0-37.0); MCV 82.6 fL (80.0-100.0); Mean Platelet Volume 7.6; Monocytes # (A) 0.4 k/uL (0-1.0); Monocytes % (A) 9 %; Neutrophils # (A) 3.4 k/uL (1.3-7.7); Neutrophils % (A) 75 %; Platelet Count 221 k/uL (150-450); RBC 3.93 m/uL (3.80-5.40); RDW 17.5 % (11.5-15.5); WBC 4.5 k/uL (3.8-10.6)
--- NOTE | 2024-06-03 12:45 | P.PN ---
Subjective Progress Note Date: 06/03/24 Principal diagnosis: Reason for follow-up is perforated diverticulitis and peritonitis Patient is a 73-year-old female with a past medical history significant for hypertension hyperlipidemia MA atrial fibrillation, patient was recently admitted at this facility and has been diagnosed with a diverticulitis with microperforation pending bed to the hospital with a defibrillator shock with repeat CT abdominal pelvis shows worsening pneumoperitoneum, patient was taken to the OR on 05/18/2024 status post small bowel resection because of adhesion that is and diverting colostomy operative report did not mention any abscess and no culture On today's evaluation that is 06/03/2024, the patient continues to be afebrile, the patient is on 2 L nasal cannula oxygen and breathing comfortably, the Pt denies having any chest pain or cough, the patient denies having any vomiting abdominal pain has decreased intensity did have output in her colostomy. Patient white count is 4.5, creatinine 0.39 Objective - Vital Signs Vital signs: Vital Signs Temp 97.5 F L 06/03/24 11:55 Pulse 66 06/03/24 11:55 Resp 16 06/03/24 11:55 BP 138/86 06/03/24 11:55 Pulse Ox 97 06/03/24 11:55 FiO2 Intake & Output 06/02/24 06/03/24 06/03/24 18:59 06:59 18:59 Intake Total 540 Output Total 760 450 300 Balance -220 -450 -300 Weight 60 kg Intake: Oral 540 Output: Drainage 10 Right Abdomen 10 Urine 650 400 300 Stool 100 50 Other: Voiding Method External Catheter External Catheter External Catheter # Voids 1 # Bowel Movements 1 - Exam GENERAL DESCRIPTION: An elderly female lying in bed in no distress RESPIRATORY SYSTEM: Unlabored breathing , decreased breath sounds at bases HEART: S1 S2 regular rate and rhythm , ABDOMEN: Soft , abdominal surgeon is currently dressed - Labs CBC & Chem 7: 06/03/24 06:55 06/03/24 06:55 Labs: Abnormal Lab Results - Last 24 Hours (Table) 06/03/24 06/03/24 Range/Units 06:55 06:55 Hgb 9.8 L (11.4-16.0) gm/dL Hct 32.5 L (34.0-46.0) % MCH 24.9 L (25.0-35.0) pg MCHC 30.2 L (31.0-37.0) g/dL RDW 17.5 H (11.5-15.5) % Lymphocytes # 0.5 L (1.0-4.8) k/uL Sodium 134 L (137-145) mmol/L Carbon Dioxide 34 H (22-30) mmol/L Creatinine 0.39 L (0.52-1.04) mg/dL Calcium 8.2 L (8.4-10.2) mg/dL Assessment and Plan (1) Intra-abdominal abscess Current Visit: Yes Status: Acute Code(s): K65.1 - PERITONEAL ABSCESS SNOMED Code(s): 07350071 (2) Peritonitis Current Visit: Yes Status: Acute Code(s): K65.9 - PERITONITIS, UNSPECIFIED SNOMED Code(s): 03546242 (3) Perforation of sigmoid colon due to diverticulitis Current Visit: No Status: Acute Code(s): K57.20 - DVTRCLI OF LG INT W PERFORATION AND ABSCESS W/O BLEEDING SNOMED Code(s): 4430847938714595 (4) Stage II pressure ulcer of sacral region Current Visit: Yes Status: Acute Code(s): L89.152 - PRESSURE ULCER OF SACRAL REGION, STAGE 2 SNOMED Code(s): 92231868113612 Plan: 1patient presented to hospital with sepsis in this patient who did have fever tachycardia elevated white count source is complicated diverticulitis now with evidence of pneumoperitoneum and worsening inflammatory changes will need to cover for the enteric gram-negative both aerobes and anaerobes 2-patient is status post laparotomy small bowel resection and diverting colostomyoperative report did not mention any abscess and no culture 3-patient noticed to have drainage from the lower end of the incision which has been opened up Obtain CT Abdominal Pelvis with Some Phlegmon Changes and Free Air but Did Not Mention Any Abscess Collection 4patient abdominal culture growing E. coli, bacteroids and Daria 5patient has developed significant excoriation to bilateral gluteal/sacral area stage II ulcer, will advised local wound care with dry Aquacel silver dressing and frequent changing her position 6-patient is afebrile white count has been normal 7patient to continue with Zosyn and Eraxis while inpatient and monitor clinical course closely Dictation was produced using [employer] dictation software. please excuse any grammatical, word or spelling errors. Time with Patient: Less than 30
--- NOTE | 2024-06-03 14:38 | P.PN ---
Subjective Progress Note Date: 06/03/24 73-year-old female with past medical history significant for atrial fibrillation, AICD in place, ischemic cardiomyopathy with a EF 45%, coronary artery disease status post stenting August 2023, hypertension, hyperlipidemia who presented to ER with a complaint of defibrillator shock. Patient was discharged yesterday on oral antibiotics Ceftin and Flagyl, when patient was admitted for acute diverticulitis with perforation, infectious disease and general surgery was consulted and patient was continued on medical management during hospitalization and eventually discharged after clearance from general surgery after patient symptoms improved. Patient reported that she had of defibrillator shock yesterday, had 1 more shock earlier today leading to fall. Patient reported that she has not had a bowel movement. Patient has not started her home medication. Patient also reported fever and chills, reported abdominal distention, reported abdominal pain is same. Patient denied any headache, sore throat, productive cough, shortness of breath, chest pain, palpitations, dysuria urgency frequency weakness or numbness of extremities. Vitals: Temperature 100.3, heart rate 118, respiratory rate 18, blood pressure 101/62, saturating 94% on room air. Labs: WBCs 13.4, trending down, hemoglobin 11.3, platelets 453, INR 1.1, creatinine 0.49, BUN 16, normal ALT AST alkaline phosphatase and bilirubin. 05/17--patient was seen and examined today. Complaining of abdominal pain, nausea. Patient CT abdomen pelvis overnight showed acute diverticulitis with perforation with worsening pneumoperitoneum, general surgery consulted and following, planning for OR tomorrow as patient received Plavix today. Remains on amiodarone drip per cardiology. Monitor with telemetry. N.p.o., IV fluids, hold Farxiga. 05/18/2024 Patient is currently n.p.o. scheduled to undergo surgical intervention secondary to diverticulitis with perforation with general surgery. Will await surgical report. 05/19/2024 Patient is seen in follow-up this morning status post exploratory laparotomy, diverting colostomy and small bowel resection. Patient ostomy with some blood noted with no bowel activity as of yet. Patient blood pressures are on the lower side and receiving a bolus and will follow-up with repeat labs. Patient with decreased urine output although patient has not been n.p.o. for over 24 hours. White count is elevated although patient remains afebrile and kidney function mildly elevated as well recommend gentle hydration and follow-up on repeat labs. Patient continues with an NG tube for decompression with minimal frothy output noted. Discussed with the patient about ambulating and increasing activity as soon as possible and recommend PT/OT therapy evaluation. Patient also to continue with frequent offloading and position changes as patient is noted to have a stage II sacral decubitus ulcer that was present on admission. 05/20/2024 Patient is seen and evaluated in follow-up this morning with daughter at the bedside having some serous drainage output noted in ostomy. No bowel movement as of yet although patient did report she thought she noticed some air in the ostomy. Patient remains n.p.o. and continues with NG tube for decompression with multiple consultations following. Patient will continue on IV amiodarone and okay to resume IV heparin until tolerating oral intake per surgery to resume. Patient has not been up and walking and recommend PT/OT therapy evaluation and sitting up in the chair more often. Patient is extremely uncomfortable with the NG tube although understands its importance. Continue with mouth swabs frequently to the oral mucosa as it is extremely dry. Kidney function slightly worsened and sodium on the lower side recommend transitioning IV fluids with a decreased rate of D5 and normal saline as opposed to half- normal saline and recommend repeat labs. Urine output is fair and continues with indwelling Duarte catheter. Patient reporting some vaginal discomfort near the catheter and discussed with nursing staff about repositioning and continued Duarte catheter care and management. Blood pressures soft overall stable and will continue current regimen. Cardiology is following as well. 05/21--patient was seen and examined today. Patient had colostomy output, general surgery planning to DC NG tube. Plan to start ice chips and popsicles with slow advancement of diet. Patient currently on Zosyn and Eraxis per infectious disease. Will continue monitor labs. WBCs trending down to 14.5. Hemoglobin stable 9.7. Platelet normal. Sodium 130 potassium 4.3, BUN 32, creatinine 0.90. 05/22/2024--patient was seen and examined today. NG tube is out. Currently on ice chips with popsicles. Reported colostomy output. Vitals unremarkable, afebrile. WBC trending down 12.6. Hemoglobin stable 10.4. Platelet 363. Sodium improved to 136, potassium 3.4, BUN 28, creatinine 1.01. LFTs unremarkable. Cardiology following. Off amiodarone drip, currently on amiodarone 200 mg 3 times daily, metoprolol. Cardiology recommended to uptitrate rate metoprolol as tolerated. 05/23/2024 Patient is seen in follow-up today and is extremely lethargic and being followed by ID and general surgery. Patient wbc is elevated above [address] recommends a [address]. General surgery now agreeable and CT abdomen reordered. Foul purulent drainage noted out of the abdomen and cultures obtained and pending. Family requested a hospice informational with [facility]. Patient is extremely weak and fatigues easily. Family reports she was hallucinating last night when no one was in the room. Recommend limiting narcotics and out of the bed in the chair more often especially during the day. Brown loose stool noted in the ostomy. 05/24/2024 Patient is seen in follow-up today much more awake and having conversation with family at the bedside. Patient kidney functions are improving and patient appears edematous in upper and lower extremities with significant pitting noted recommend Rocco wraps to bilateral lower extremities and decreasing IV fluids. Patient is maintained on clear liquids and encouraged oral intake. Patient maintained on antibiotics with infectious disease following for abdominal site infection and cultures are pending at this time. Patient continues to have gas and stool noted in the ostomy. 05/25/2024 Patient is seen in follow-up today being followed closely with general surgery and infectious disease. Patient is maintained on antibiotics and did have some lower abdominal incision cinda removed with continued persistent drainage noted. Ostomy is functioning with gas and stool and patient is maintained on clear liquid diet attempting to eat. Patient reports to feeling somewhat improved although was having significant swelling as well. Kidney functions have improved and will decrease hydration and give a dose of Lasix. Instructed nursing staff to use Rocco wraps from the toes to the knees and elevate lower extremities. Patient needs PT/OT therapy daily and getting out of the bed daily. Encouraged incentive spirometer use and continue deep breathing. Noted at the bedside concerned with her overall feelings of depression and being overwhelmed with her current medical conditions, will start low-dose antidepressant. 05/26/2024 Patient is seen in follow-up today currently attempting to work with physical therapy. Patient is a heavy 2 person assist and will most definitely require ECF on discharge. Cultures from abdominal wound site infection revealing E. coli and patient is maintained on Zosyn with infectious disease following. Patient continues to have some volume overload of upper and lower extremities and will give another dose of IV Lasix and monitor. Kidney functions have improved. Patient per surgery okay to be placed on anticoagulation orally and discontinue heparin drip. 05/27/2024 Patient is evaluated today in follow-up on the medical floor. Patient's family is concerned with her stage II sacral decub receiving zinc barrier paste and OPTi foam dressing. Will ask wound care to evaluate the wound. Continues on IV Zosyn for E. coli in the abdominal wound she is still continue with some drain age purulent. She is currently receiving IV Lasix for significant peripheral edema. Her sodium level is 138, BUN of 15, creatinine 0.47. Magnesium level of 1.7. Her albumin has been low. She remains on a full liquid diet. Is having stool from the ostomy. She has been resumed on Eliquis. 05/28/2024 Patient is evaluated in follow-up in the medical floor with her daughter at the bedside. Wound care consultation was placed slightly afternoon and then will be unable to see the patient until Thursday. Discussed with infectious disease requesting to review the imaging and wound further recommendations may need a surgical debridement pending on recommendations. Continue this patient IV Lasix daily she does continue with significant peripheral edema. Patient has been essentially bedrest fatigued and family with concerns about her activity level stating that just because she has a 2-3 person assist she should be up in the chair and out of bed and the longer that she lays in bed the week where she will be calm. Patient will require subacute rehab on discharge. Although patient states that she is fatigued and does not really want to get up out of bed and his been resistant to frequent repositioning for the stage II pressure injury. Discussed this with family as well. Blood work today reveals a white blood cell count of 10.2, hemoglobin 9.3, sodium of 138, potassium 3.6, BUN of 13, creatinine of 0.51. Magnesium 1.7. patient continues on IV Zosyn and IV anidulafungin has been added. 05/29/2024 Patient is evaluated today in follow up. Appears less fatigued. Has family at t he bedside. ID has added aquacel silver to the sacral wound. Discussed this with family. They are asking about antibiotic plan of discharge. They are still considering home on discharge vs. rehab. Patient remains on IV zosyn and IV anidulafungin. Continues with IV lasix. Abdominal wound is being packed. Making stool from the ostomy. Sodium 138, potassium 3.4, BUN 11, creatinine 0.41. 05/31/2024 Patient is seen and evaluated in follow-up with son and daughter at the bedside who are having long conversations regarding possible hospice. Family is concerned she is not improving and continues to decline. Patient's kidney functions have improved and overall edema of the upper and lower extremities have improved and will be transitioning from IV Lasix to oral. Patient with prolonged hospitalization and significant weakness recommend PT/OT therapy daily and would strongly recommend ECF for continued strength and mobility prior to returning home. Patient with surgery following status post ostomy and ostomy is functioning and maintained on IV antibiotics secondary to abdominal wall infec tion postsurgery. Case management/social work is following in regards to discharge planning. Daughter is considering taking the patient home with home care. Patient is afebrile and white count has normalized. Recommend increased activity as tolerated and sitting up in the chair at least 3 times daily with meals and elevating lower extremities while at rest. Replace electrolytes per protocol. 06/01/2024 Patient is seen and evaluated in follow-up today and continues to be weak having difficulty working with physical therapy. Per nursing staff patient has been refusing to get out of bed and again discussed with the patient in detail the importance of getting up and sitting in the chair and working with physical therapy. Patient reports her legs are so weak and she is fearful of falling. Patient will most definitely need rehab on discharge and case management following working on possible [place]. Patient is afebrile maintained on antibiotics per ID recommendations and will discuss further regarding discharge planning. Patient to continue local wound care and frequent position changes and offloading to the buttocks area. Continue with wound care per ID recommendations. 06/02/2024 Patient is seen and evaluated in follow-up today continues to be extremely weak and per nursing staff has not been up and moving and have strongly encouraged PT/OT therapy evaluation daily. Have transitioned Lasix to oral and will adjust potassium to twice daily. Patient not quite ready for discharge and will likely need ECF on discharge early next week. Infectious disease following and patient is maintained on IV antibiotics along with general surgery continuing on wound care. Patient to be offloading at least every 2 hours of the buttock area and use supportive cushions as well as sitting up in the chair more frequently. 06/03/2024 Patient is seen and evaluated in follow-up today with multiple consultations following. Patient maintained on IV antibiotics with infectious disease following and will be transitioning to oral antibiotics on discharge. Patient evaluated by general surgery recommending to continue with local wound care and has been cleared for discharge once cleared by other consultations to [facility]. Case management/social work following working on discharge planning to [facility]. Patient is afebrile with no reports of chest pain or worsening shortness of breath. Patient continues to report mouth pain and is maintained on a soft chopped diet and will continue nystatin swish and swallow. Encouraged incentive spirometer use and getting up more frequently. Strongly recommend PT/OT therapy daily as patient has been refusing to work with them due to significant weakness. REVIEW OF SYSTEMS: CONSTITUTIONAL: No fever or chills. Patient reports feeling continued weakness CARDIOVASCULAR: No chest pain, palpitations or syncope. PULMONARY: Reports of intermittent shortness of breath, no cough, sore mouth with eating GASTROINTESTINAL: Reports of occasional nausea, no vomiting, no diarrhea, reports continued abdominal tenderness. not much of an appetite but attempting to eat more : No Dysuria, urgency, frequency. Extremities: No edema. NEUROLOGICAL: No headaches, reports extreme weakness and significant swelling but has improved in the upper and lower extremities PHYSICAL EXAMINATION: GENERAL: The patient is A&O x3, awake and alert having conversation, elderly appearing, ill-appearing, obese HEENT: EOMI, Sclerae anicteric, dry Mucous membranes Neck: Supple, Non tender, No JVD PULMONARY: diminshed breath sounds bilaterally, Equal breath souds B/L, No wheezing, No crackles. CARDIOVASCULAR: S1, S2 muffled, irregular, currently controlled ABDOMEN: Tender, less distended. Tenderness and discomfort noted on palpation ostomy noted on the left with some brown stool and gas. MUSCULOSKELETAL: No edema, No cyanosis. No clubbing. Normal ROM. Intact peripheral pulses. EXTREMITIES: No cyanosis, clubbing, bilateral upper and lower extremity swelling with some improvement, 2+ pitting NEUROLOGICAL: CN 2-12 grossly intact. No FND Skin: No Rash, stage II sacral decubitus ulcer Assessment: Acute diverticulitis with perforation: Worsening pneumoperitoneum with sepsis, present on admission status post exploratory laparotomy, diverting colostomy and small bowel resection Leukocytosis, secondary to above with concerns of abdominal surgical site infection, improved, cultures from the surgical site showing E. coli Fevers, present on admission secondary to above, resolved defibrillator shock: With history of CAD status post stent in August [address] Hypertension, currently normotensive Hyperlipidemia Chronic systolic CHF, not in exacerbation, currently euvolemic A-fib with RVR, currently rate controlled Obesity with a BMI 31.0 Stage II sacral decubitus ulcer, present on admission GI prophylaxis DVT prophylaxis Full code Plan: Patient is currently status post exploratory laparotomy, diverting colostomy and small bowel resection with general surgery following Patient is maintained on IV antibiotics with ID following and will potentially discharge on oral antibiotic therapy and will discuss further with infectious disease closer to discharge, possibly early next week to ECF General Surgery following and has cleared the patient for discharge to ECF once cleared by other consultations patient is noted to have a stage II sacral decubitus ulcer ID recommending aquacel silver change q 48 hours. as well as frequent offloading and Optifoam to the area with position changes every 2 hours; Wound care following making recommendations Downgraded to medical surgical unit. IV Lasix discontinued and have transition to oral Lasix daily and recommend potassium replacement to be supplemented daily. Encouraged oral intake with small frequent meals and patient is maintained on dysphagia chopped diet. PT/OT therapy to evaluate as patient is significantly weak and not getting up out of bed at all. Per nursing staff patient has been refusing to work with physical therapy. Reiterated the importance of working with physical therapy and attempting daily to build strength. Case management following and will most definitely need ECF for continued rehab. Recommend PT/OT therapy daily. Encourage patient and family members to have the patient out in the chair at least 3 times daily during meals Encouraged incentive spirometer use at least 10 times every hour while awake. Wean oxygen to room air Overall prognosis is extremely guarded The impression and plan of care has been dictated by Lisy Jones, Nurse Practitioner as directed. Dr. Shahzad MD I have performed a history and examination and MDM of this patient, discussed the same with the dictator, and agree with the dictator's assessment and plan as written ,documented as a scribe. Based on total visit time, I have performed more than 50% of the visit. Objective - Vital Signs Vital signs: Vital Signs Temp 98.2 F 06/03/24 07:42 Pulse 92 06/03/24 07:44 Resp 16 06/03/24 07:42 BP 148/91 06/03/24 07:42 Pulse Ox 98 06/03/24 07:42 FiO2 Intake & Output 06/02/24 06/03/24 06/03/24 18:59 06:59 18:59 Intake Total 540 Output Total 760 450 300 Balance -220 -450 -300 Weight 60 kg Intake: Oral 540 Output: Drainage 10 Right Abdomen 10 Urine 650 400 300 Stool 100 50 Other: Voiding Method External Catheter External Catheter External Catheter # Voids 1 # Bowel Movements 1 - Labs CBC & Chem 7: 06/03/24 06:55 06/03/24 06:55 Labs: Abnormal Lab Results - Last 24 Hours (Table) 06/03/24 06/03/24 Range/Units 06:55 06:55 Hgb 9.8 L (11.4-16.0) gm/dL Hct 32.5 L (34.0-46.0) % MCH 24.9 L (25.0-35.0) pg MCHC 30.2 L (31.0-37.0) g/dL RDW 17.5 H (11.5-15.5) % Lymphocytes # 0.5 L (1.0-4.8) k/uL Sodium 134 L (137-145) mmol/L Carbon Dioxide 34 H (22-30) mmol/L Creatinine 0.39 L (0.52-1.04) mg/dL Calcium 8.2 L (8.4-10.2) mg/dL
--- NOTE | 2024-06-04 16:13 | P.PN ---
Subjective Progress Note Date: 06/04/24 Principal diagnosis: Reason for follow-up is perforated diverticulitis and peritonitis Patient is a 73-year-old female with a past medical history significant for hypertension hyperlipidemia RI atrial fibrillation, patient was recently admitted at this facility and has been diagnosed with a diverticulitis with microperforation pending bed to the hospital with a defibrillator shock with repeat CT abdominal pelvis shows worsening pneumoperitoneum, patient was taken to the OR on 05/18/2024 status post small bowel resection because of adhesion that is and diverting colostomy operative report did not mention any abscess and no culture On today's evaluation that is 06/04/2024, Patient is afebrile patient is currently on 4 L nasal oxygen and denies having any shortness of breath, the patient denies any chest pain or cough, the patient denies any nausea vomiting did not have any abdominal pain has been complaining of nosebleed since morning. Patient did not have any lab draw today Objective - Vital Signs Vital signs: Vital Signs Temp 97.7 F 06/04/24 08:00 Pulse 72 06/04/24 08:00 Resp 18 06/04/24 08:00 BP 123/82 06/04/24 08:00 Pulse Ox 93 L 06/04/24 08:00 FiO2 Intake & Output 06/03/24 06/04/24 06/04/24 18:59 06:59 18:59 Intake Total 420 Output Total 1653 750 800 Balance -1233 -750 -800 Intake: IV 60 .9@5 60 Intake, IV Titration 300 Amount Anidulafungin 100 mg In 100 Sodium Chloride 0.9% 100 ml @ 84 mls/hr IVPB DAILY ANABELLA Rx#:[id number] Piperacillin-Tazobactam 3 200 .375 gm In Sodium Chloride 0.9% 100 ml @ 25 mls/hr IVPB Q8HR ANABELLA Rx# :[id number] Oral 60 Output: Drainage 3 Right Abdomen 3 Urine 1650 650 700 Stool 100 100 Other: Voiding Method External Catheter External Catheter External Catheter # Voids 1 - Exam GENERAL DESCRIPTION: An elderly female lying in bed in no distress RESPIRATORY SYSTEM: Unlabored breathing , decreased breath sounds at bases HEART: S1 S2 regular rate and rhythm , ABDOMEN: Soft , abdominal surgeon is currently dressed - Labs CBC & Chem 7: 06/03/24 06:55 06/03/24 06:55 Assessment and Plan (1) Intra-abdominal abscess Current Visit: Yes Status: Acute Code(s): K65.1 - PERITONEAL ABSCESS SNOMED Code(s): 50734407 (2) Peritonitis Current Visit: Yes Status: Acute Code(s): K65.9 - PERITONITIS, UNSPECIFIED SNOMED Code(s): 34450043 (3) Perforation of sigmoid colon due to diverticulitis Current Visit: No Status: Acute Code(s): K57.20 - DVTRCLI OF LG INT W PERFORATION AND ABSCESS W/O BLEEDING SNOMED Code(s): 3975205992962084 (4) Stage II pressure ulcer of sacral region Current Visit: Yes Status: Acute Code(s): L89.152 - PRESSURE ULCER OF SACRAL REGION, STAGE 2 SNOMED Code(s): 14681150966100 Plan: 1patient presented to hospital with sepsis in this patient who did have fever tachycardia elevated white count source is complicated diverticulitis now with evidence of pneumoperitoneum and worsening inflammatory changes will need to cover for the enteric gram-negative both aerobes and anaerobes 2-patient is status post laparotomy small bowel resection and diverting colostomyoperative report did not mention any abscess and no culture 3-patient noticed to have drainage from the lower end of the incision which has been opened up Obtain CT Abdominal Pelvis with Some Phlegmon Changes and Free Air but Did Not Mention Any Abscess Collection 4patient abdominal culture growing E. coli, bacteroids and Daria 5patient has developed significant excoriation to bilateral gluteal/sacral area stage II ulcer, will advised local wound care with dry Aquacel silver dressing and frequent changing her position 6-patient is afebrile white count has been normal, patient is currently being treated with Zosyn and Eraxis to continue on inpatient and monitor clinical course closely Dictation was produced using [employer] dictation software. please excuse any grammatical, word or spelling errors. Time with Patient: Less than 30
--- NOTE | 2024-06-04 16:48 | P.PN ---
Subjective Progress Note Date: 06/04/24 CHIEF COMPLAINT: Diverticulitis HISTORY OF PRESENT ILLNESS: The patient is a 73-year-old female with perforated diverticulitis status post colostomy. She is tolerating regular diet. No fevers or chills. She has a complicated lower abdominal wound with purulent drainage. Patient complains of new nosebleeding. She denies any blowing of her nose. No reports of abdominal pain. ROS: No reports of nausea and vomiting. No fevers or chills. No new chest pain. No productive sputum PHYSICAL EXAM: VITAL SIGNS: Reviewed CONSTITUTIONAL: Well developed and in no acute distress. EYES: Conjuctivae without sclera icterus. Extraocular movements grossly intact. HEAD, EARS, NOSE, THROAT: Moist buccal mucosa. Head is atraumatic, normocephalic. Hears conversational speech. No nasal drainage. RESPIRATORY: Non-labored respirations and equal bilateral excursions. CARDIOVASCULAR: Palpable 2+ radial pulses. ABDOMEN: Still flatus in ostomy. Purulent drainage of the lower abdomen. VAUGHN drain purulent. MUSCULOSKELETAL: No gross deformity of the lower extremities noted. No clubbing. No cyanosis. Moderate edema lower extremity noted. SKIN: Good skin turgor. Well perfused. NEUROLOGIC: Cranial nerves II through XII grossly intact. No focal or lateralizing signs. PSYCH: Appropriate affect. Alert and oriented to person, place and time. CLINICAL LABS: Reviewed. WBC normal 4.5. Platelets normal 221. ASSESSMENT: 1. Perforated diverticulitis with sepsis 2. Leukocytosis 3. Nosebleeds 4. Complicated surgical site infection/deep tissue infection PLAN: 1. Recommend high-protein diet to facilitate overall wound healing. [place] dietary goal over 80 g daily. 2. She has new nosebleeds. Recommend adjusting for increase humidity or using nasal mist. 3. Continue antibiotics for complicated abdominal wound Objective - Vital Signs Vital signs: Vital Signs Temp 97.7 F 06/04/24 08:00 Pulse 72 06/04/24 08:00 Resp 18 06/04/24 08:00 BP 123/82 06/04/24 08:00 Pulse Ox 93 L 06/04/24 08:00 FiO2 Intake & Output 06/03/24 06/04/24 06/04/24 18:59 06:59 18:59 Intake Total 420 Output Total 1653 750 800 Balance -1233 -750 -800 Intake: IV 60 .9@5 60 Intake, IV Titration 300 Amount Anidulafungin 100 mg In 100 Sodium Chloride 0.9% 100 ml @ 84 mls/hr IVPB DAILY [facility] Rx#:[id number] Piperacillin-Tazobactam 3 200 .375 gm In Sodium Chloride 0.9% 100 ml @ 25 mls/hr IVPB Q8HR [facility] Rx# :[id number] Oral 60 Output: Drainage 3 Right Abdomen 3 Urine 1650 650 700 Stool 100 100 Other: Voiding Method External Catheter External Catheter External Catheter # Voids 1 - Labs CBC & Chem 7: 06/03/24 06:55 06/03/24 06:55
--- NOTE | 2024-06-04 23:37 | PN ---
PROGRESS NOTE DATE OF SERVICE: 06/04/2024 SUBJECTIVE: This is a 73-year-old woman, who was admitted after diverticulitis and perforation, is complaining of significant weakness at this time. The most recent chest x-ray done on the showed some atelectasis. The patient is being closely monitored. Lab perez, hemoglobin is 10.8. Sodium is 135. ECF rehab is being planned. The patient also had Daria albicans and Bacteroides grown from the wound culture as well as E coli, which is rather sensitive. PAST MEDICAL HISTORY: Reviewed. REVIEW OF SYSTEMS: A 14-point review is negative except as mentioned earlier. CURRENT MEDICATIONS: Reviewed include anidulafungin. Rest of medications noted. PHYSICAL EXAMINATION: VITAL SIGNS: Pulse is 54, blood pressure 140/74, respirations 16. CHEST: A few scattered rhonchi and crackles. ABDOMEN: Soft, status post surgery. LEGS: No edema. NERVOUS SYSTEMS: Nonfocal. LABORATORY DATA: Reviewed as mentioned earlier. ASSESSMENT: 1. Acute diverticulitis and perforation with sepsis, status post exploratory laparotomy. 2. Polymicrobial infection in the abdominal wall including Bacteroides, Daria albicans, and Escherichia coli. 3. Gait dysfunction. 4. Bilateral atelectasis. 5. Hypertension. 6. Hyperlipidemia. 7. Atrial fibrillation history. 8. Multiple complex medical issues. RECOMMENDATIONS AND DISCUSSION: This is a 73-year-old woman, who presented with multiple complex medical issues, we will monitor the patient closely. I would recommend continue with the bronchodilators and continue with empiric antibiotics and antifungals. Repeat labs. Closely monitor hemoglobin. Increase ambulation. Otherwise, dysphagia diet. Extremely guarded prognosis and possible ECF rehab because of multiple complex medical issues. Further recommendations to follow. MMODL / IJN: [id number] /
[2024-06-05 11:43] LABS: Anisocytosis Slight; Basophils % (A) 0 %; Eosinophils # (A) 0.2 k/uL (0-0.7); Eosinophils % (A) 3 %; HCT 32.8 % (34.0-46.0); Hypochromasia Moderate; Lymphocytes # (A) 0.8 k/uL (1.0-4.8); Lymphocytes % (A) 12 %; MCH 25.1 pg (25.0-35.0); MCHC 30.5 g/dL (31.0-37.0); MCV 82.2 fL (80.0-100.0); Mean Platelet Volume 7.4; Monocytes # (A) 0.5 k/uL (0-1.0); Monocytes % (A) 7 %; Neutrophils % (A) 77 %; Platelet Count 296 k/uL (150-450); RBC 3.99 m/uL (3.80-5.40); RDW 18.1 % (11.5-15.5); WBC 6.5 k/uL (3.8-10.6)
[2024-06-05 11:59] LABS: ALT 10 U/L (4-34); AST 21 U/L (14-36); African American GFR (CKD) >90 (>60 ml/min/1.73 sqM); Albumin 2.4 g/dL (3.5-5.0); Alkaline Phosphatase 103 U/L (38-126); Anion Gap 4 mmol/L; Blood Urea Nitrogen 10 mg/dL (7-17); Calcium 8.5 mg/dL (8.4-10.2); Carbon Dioxide 28 mmol/L (22-30); Chloride 99 mmol/L (98-107); Glucose 119 mg/dL (74-99); Non-African American GFR(CKD) >90 (>60 ml/min/1.73 sqM); Sodium 131 mmol/L (137-145); Total Bilirubin 0.7 mg/dL (0.2-1.3); Total Protein 6.4 g/dL (6.3-8.2)
--- NOTE | 2024-06-05 14:25 | XR ---
EXAMINATION TYPE: XR chest 1V portable DATE OF EXAM: 06/05/2024 2:19 PM CLINICAL INDICATION:Female, 73 years old with history of chf; [facility] COMPARISON: Chest radiograph 06/02/2024, 05/30/2024 TECHNIQUE: XR chest 1V portable Frontal view of the chest. FINDINGS: Overlying cardiac generator device does obscure the left lung base. Lungs/Pleura: Again demonstrated are subtle hazy lower lung airspace opacities. There is suggestion o f a trace right pleural effusion. The left lung base is obscured. Pulmonary vascularity: Mild pulmonary vascular congestion. Heart/mediastinum: Stable cardiomegaly. Musculoskeletal: No acute osseous pathology. IMPRESSION: Cardiomegaly with persistent bibasilar airspace opacities and suggestion of trace right pleural effus ion. Findings potentially related to underlying heart failure. [facility], , 06/05/2024 2:23 PM
--- NOTE | 2024-06-05 15:23 | P.PN ---
Subjective Progress Note Date: 06/05/24 Principal diagnosis: Family reports patient still having nosebleeds. Overall, patient reports she is feeling better today than yesterday. She reports tolerating her diet. Overall, minimal protein intake confirmed. Recommend protein intake at least 75 g daily for maximal nutrition. Transfer to rehab/[facility] when bed available. Objective - Vital Signs Vital signs: Vital Signs Temp 97.3 F L 06/05/24 08:00 Pulse 116 H 06/05/24 08:00 Resp 16 06/05/24 08:00 BP 101/71 06/05/24 08:00 Pulse Ox 94 L 06/05/24 08:54 FiO2 Intake & Output 06/04/24 06/05/24 06/05/24 18:59 06:59 18:59 Output Total 800 1200 150 Balance -800 -1200 -150 Output: Urine 700 1200 150 Stool 100 Other: Voiding Method External Catheter External Catheter External Catheter # Voids 2 - Labs CBC & Chem 7: 06/05/24 11:21 06/05/24 11:21 Labs: Abnormal Lab Results - Last 24 Hours (Table) 06/05/24 06/05/24 Range/Units 11:21 11:21 Hgb 10.0 L (11.4-16.0) gm/dL Hct 32.8 L (34.0-46.0) % MCHC 30.5 L (31.0-37.0) g/dL RDW 18.1 H (11.5-15.5) % Lymphocytes # 0.8 L (1.0-4.8) k/uL Sodium 131 L (137-145) mmol/L Creatinine 0.42 L (0.52-1.04) mg/dL Glucose 119 H (74-99) mg/dL Albumin 2.4 L (3.5-5.0) g/dL
--- NOTE | 2024-06-05 16:02 | P.PN ---
Subjective Progress Note Date: 06/05/24 Principal diagnosis: Reason for follow-up is perforated diverticulitis and peritonitis Patient is a 73-year-old female with a past medical history significant for hypertension hyperlipidemia [place] atrial fibrillation, patient was recently admitted at this facility and has been diagnosed with a diverticulitis with microperforation pending bed to the hospital with a defibrillator shock with repeat CT abdominal pelvis shows worsening pneumoperitoneum, patient was taken to the OR on 05/18/2024 status post small bowel resection because of adhesion that is and diverting colostomy operative report did not mention any abscess and no culture On today's evaluation that is 06/05/2024, patient has been afebrile, patient is breathing comfortably and is currently on room air, patient denies having any significant cough no chest pain shortness of breath, patient denies nausea vomiting abdominal pain has decreased in intensity output in the colostomy bag. Patient white count 6.5, creatinine 0.42 Objective - Vital Signs Vital signs: Vital Signs Temp 97.3 F L 06/05/24 08:00 Pulse 116 H 06/05/24 08:00 Resp 16 06/05/24 08:00 BP 101/71 06/05/24 08:00 Pulse Ox 94 L 06/05/24 08:54 FiO2 Intake & Output 06/04/24 06/05/24 06/05/24 18:59 06:59 18:59 Output Total 800 1200 150 Balance -800 -1200 -150 Output: Urine 700 1200 150 Stool 100 Other: Voiding Method External Catheter External Catheter External Catheter # Voids 2 - Exam GENERAL DESCRIPTION: An elderly female lying in bed in no distress RESPIRATORY SYSTEM: Unlabored breathing , decreased breath sounds at bases HEART: S1 S2 regular rate and rhythm , ABDOMEN: Soft , abdominal surgeon is currently dressed - Labs CBC & Chem 7: 06/05/24 11:21 06/05/24 11:21 Labs: Abnormal Lab Results - Last 24 Hours (Table) 06/05/24 06/05/24 Range/Units 11:21 11:21 Hgb 10.0 L (11.4-16.0) gm/dL Hct 32.8 L (34.0-46.0) % MCHC 30.5 L (31.0-37.0) g/dL RDW 18.1 H (11.5-15.5) % Lymphocytes # 0.8 L (1.0-4.8) k/uL Sodium 131 L (137-145) mmol/L Creatinine 0.42 L (0.52-1.04) mg/dL Glucose 119 H (74-99) mg/dL Albumin 2.4 L (3.5-5.0) g/dL Assessment and Plan (1) Intra-abdominal abscess Current Visit: Yes Status: Acute Code(s): K65.1 - PERITONEAL ABSCESS SNOMED Code(s): 84573295 (2) Peritonitis Current Visit: Yes Status: Acute Code(s): K65.9 - PERITONITIS, UNSPECIFIED SNOMED Code(s): 56140053 (3) Perforation of sigmoid colon due to diverticulitis Current Visit: No Status: Acute Code(s): K57.20 - DVTRCLI OF LG INT W PERFORATION AND ABSCESS W/O BLEEDING SNOMED Code(s): 5249494224641644 (4) Stage II pressure ulcer of sacral region Current Visit: Yes Status: Acute Code(s): L89.152 - PRESSURE ULCER OF SACRAL REGION, STAGE 2 SNOMED Code(s): 02308643509675 Plan: 1patient presented to hospital with sepsis in this patient who did have fever tachycardia elevated white count source is complicated diverticulitis now with evidence of pneumoperitoneum and worsening inflammatory changes will need to cover for the enteric gram-negative both aerobes and anaerobes 2-patient is status post laparotomy small bowel resection and diverting colostomyoperative report did not mention any abscess and no culture 3-patient noticed to have drainage from the lower end of the incision which has been opened up Obtain CT Abdominal Pelvis with Some Phlegmon Changes and Free Air but Did Not Mention Any Abscess Collection 4patient abdominal culture growing E. coli, bacteroids and Daria 5patient has developed significant excoriation to bilateral gluteal/sacral area stage II ulcer, will advised local wound care with dry Aquacel silver dressing and frequent changing her position 6-patient is afebrile white count has been normal, patient has received almost 3-week course of IV Zosyn and Eraxis, plan will be for a week of oral Cipro Flagyl and Diflucan on discharge Dictation was produced using [employer] dictation software. please excuse any grammatical, word or spelling errors. Time with Patient: Less than 30
[2024-06-05] MEDS: CITALOPRAM HYDROBROMIDE 20 MG TAB PO SCH (20:39)
[2024-06-06 06:37] LABS: Anisocytosis Slight; Basophils % (A) 0 %; Eosinophils # (A) 0.3 k/uL (0-0.7); Eosinophils % (A) 3 %; HGB 9.6 gm/dL (11.4-16.0); Hypochromasia Marked; Lymphocytes % (A) 13 %; MCH 24.8 pg (25.0-35.0); MCHC 29.9 g/dL (31.0-37.0); MCV 82.8 fL (80.0-100.0); Monocytes # (A) 0.6 k/uL (0-1.0); Monocytes % (A) 8 %; Neutrophils # (A) 5.7 k/uL (1.3-7.7); Neutrophils % (A) 74 %; Platelet Count 280 k/uL (150-450); RBC 3.86 m/uL (3.80-5.40); RDW 17.8 % (11.5-15.5); WBC 7.7 k/uL (3.8-10.6)
[2024-06-06 10:53] LABS: African American GFR (CKD) >90 (>60 ml/min/1.73 sqM); Anion Gap 4 mmol/L; Blood Urea Nitrogen 13 mg/dL (7-17); Calcium 8.8 mg/dL (8.4-10.2); Carbon Dioxide 25 mmol/L (22-30); Chloride 104 mmol/L (98-107); Glucose 105 mg/dL (74-99); Non-African American GFR(CKD) >90 (>60 ml/min/1.73 sqM); Sodium 133 mmol/L (137-145)
--- NOTE | 2024-06-06 11:52 | PN ---
PROGRESS NOTE DATE OF SERVICE: 06/05/2024 SUBJECTIVE: This 73-year-old woman was admitted after acute diverticulitis and perforation, had polymicrobial infection of the abdominal wall. The patient is complaining of generalized transient weakness at this time. Hemoglobin is 10. Most recent chest x- ray done on June 02 was reviewed personally showed some atelectasis. PAST MEDICAL HISTORY: Reviewed. REVIEW OF SYSTEMS: A 14-point review is negative except as mentioned earlier. CURRENT MEDICATIONS: Reviewed. PHYSICAL EXAMINATION: VITAL SIGNS: Pulse is 116, blood pressure 101/70, respirations 16. CHEST: Few scattered rhonchi. ABDOMEN: Soft. NERVOUS SYSTEM: Nonfocal. LABORATORY DATA: Hemoglobin 10, sodium is 131, other labs are noted. ASSESSMENT: 1. Acute diverticulitis with perforation and sepsis, status post exploratory laparotomy. 2. Polymicrobial infection of the abdominal wall including Bacteriodes, Daria albicans, and Escherichia coli. 3. Gait dysfunction, bilateral atelectasis. 4. Hypertension. 5. Hyperlipidemia. 6. Atrial fibrillation history. 7. Multiple complex medical issues. RECOMMENDATIONS: To continue current management and treatment, otherwise continue with antibiotics and antifungals. I would recommend repeat chest x-ray. Continue with bronchodilators, incentive spirometry. Increase ambulation. Possible ECF rehab. Guarded prognosis. Further recommendations to follow. See orders for details. MMODL / IJN: [id number] /
--- NOTE | 2024-06-06 12:09 | P.PN ---
Subjective Progress Note Date: 06/06/24 CHIEF COMPLAINT: Perforated diverticulitis HISTORY OF PRESENT ILLNESS: Postop day #19 status post exploratory laparotomy, diverting colostomy and small bowel resection. Patient's ostomy is functioning. Patient reports her pain is controlled. Patient did not get out of bed over the weekend. She was having issues with nosebleeds. That seems to have improved. She is tolerating diet. WBC 7.7 Hgb 9.6 platelets 280. VAUGHN drain with minimal purulent drainage. Patient reporting they are changing dressing about once a day. PHYSICAL EXAM: VITAL SIGNS: Reviewed. GENERAL: no acute distress. ABDOMEN: Soft. Nondistended. Incisional dressings are clean. Decreased purulent drainage from incision site. VAUGHN drain with minimal purulent drainage. ostomy functioning. ASSESSMENT: 1. Perforated diverticulitis status post diverting colostomy 2. Abdominal wound infection PLAN: -Patient stable for discharge from surgical standpoint when medically cleared -Antibiotics per infectious disease -Continue local wound care -Encourage patient to increase protein intake to help promote wound healing Physician Core Placer note has been reviewed by physician. Signing provider agrees with the documented findings, assessment, and plan of care. Objective - Vital Signs Vital signs: Vital Signs Temp 98 F 06/06/24 11:51 Pulse 68 06/06/24 11:51 Resp 18 06/06/24 11:51 BP 127/68 06/06/24 11:51 Pulse Ox 94 L 06/06/24 11:51 FiO2 Intake & Output 06/05/24 06/06/24 06/06/24 18:59 06:59 18:59 Output Total 450 350 150 Balance -450 -350 -150 Output: Urine 450 350 150 Other: Voiding Method External Catheter External Catheter External Catheter # Voids 2 - Labs CBC & Chem 7: 06/06/24 06:20 06/06/24 06:20 Labs: Abnormal Lab Results - Last 24 Hours (Table) 06/06/24 06/06/24 Range/Units 06:20 06:20 Hgb 9.6 L (11.4-16.0) gm/dL Hct 32.0 L (34.0-46.0) % MCH 24.8 L (25.0-35.0) pg MCHC 29.9 L (31.0-37.0) g/dL RDW 17.8 H (11.5-15.5) % Sodium 133 L (137-145) mmol/L Creatinine 0.40 L (0.52-1.04) mg/dL Glucose 105 H (74-99) mg/dL
[2024-06-06] MEDS: FUROSEMIDE 10 MG/ML 4 ML VIAL IV SCH (13:51)
--- NOTE | 2024-06-06 21:07 | PN ---
PROGRESS NOTE DATE OF SERVICE: 06/06/2024 SUBJECTIVE: This is a 73-year-old woman, who was admitted with acute diverticulitis and perforative sepsis, is being closely monitored. The patient is able to sit up in a chair at this time. A chest x-ray, which was done, showed atelectasis. PAST MEDICAL HISTORY: Reviewed. REVIEW OF SYSTEM: Fourteen-point review is negative except as mentioned earlier. CURRENT MEDICATIONS ARE: Reviewed include DuoNeb. PHYSICAL EXAMINATION: VITAL SIGNS: Pulse is 68, blood pressure 127/60, respirations 18. CHEST: Few scattered rhonchi. CARDIOVASCULAR: S1, S2. ABDOMEN: Soft. NERVOUS SYSTEMS: Nonfocal. LABORATORY DATA: Hemoglobin 9.8, sodium 133. ASSESSMENT: 1. Acute diverticulitis with perforative sepsis, status post exploratory laparotomy. 2. Polymicrobial infection in the abdominal wall including Bacteroides, Daria albicans and E. coli. 3. Gait dysfunction. 4. Bilateral atelectasis. 5. Hypertension. 6. Hyperlipidemia. 7. Atrial fibrillation. 8. History of multiple complex medical issues. RECOMMENDATIONS: Recommend to continue current management and continue symptomatic treatment. Continue the antibiotics. Repeat labs. Increase ambulation. Continue the bronchodilators, incentive spirometry. Continue with antifungals. Otherwise, repeat labs. I would also recommend couple low dose of IV Lasix also. Further recommendations to follow. MMODL / IJN: [id number] /
[2024-06-07 06:38] LABS: Anisocytosis Slight; Basophils % (A) 0 %; Eosinophils # (A) 0.2 k/uL (0-0.7); Eosinophils % (A) 3 %; HCT 32.8 % (34.0-46.0); HGB 9.8 gm/dL (11.4-16.0); Hypochromasia Marked; Lymphocytes % (A) 16 %; MCH 24.9 pg (25.0-35.0); MCHC 29.9 g/dL (31.0-37.0); MCV 83.5 fL (80.0-100.0); Mean Platelet Volume 6.7; Monocytes # (A) 0.6 k/uL (0-1.0); Monocytes % (A) 9 %; Neutrophils # (A) 4.4 k/uL (1.3-7.7); Neutrophils % (A) 70 %; Platelet Count 268 k/uL (150-450); RBC 3.93 m/uL (3.80-5.40); RDW 17.8 % (11.5-15.5); WBC 6.4 k/uL (3.8-10.6)
[2024-06-07 06:57] LABS: ALT 9 U/L (4-34); AST 22 U/L (14-36); African American GFR (CKD) >90 (>60 ml/min/1.73 sqM); Albumin 2.3 g/dL (3.5-5.0); Alkaline Phosphatase 92 U/L (38-126); Anion Gap 2 mmol/L; Blood Urea Nitrogen 13 mg/dL (7-17); Calcium 8.5 mg/dL (8.4-10.2); Carbon Dioxide 29 mmol/L (22-30); Chloride 101 mmol/L (98-107); Glucose 94 mg/dL (74-99); Non-African American GFR(CKD) >90 (>60 ml/min/1.73 sqM); Sodium 132 mmol/L (137-145); Total Bilirubin 0.6 mg/dL (0.2-1.3); Total Protein 6.1 g/dL (6.3-8.2)
--- NOTE | 2024-06-07 11:38 | P.DS ---
Providers Date of admission: 05/17/24 09:50 Expected date of discharge: 06/07/24 Attending physician: Wu Cunningham MD Consults: 05/16/24 12:57 Consult Physician Urgent Consulting Provider: [facility] Consult Reason/Comments: Defibrillator discharge Do you want consulting provider notified?: Yes 05/16/24 15:37 Consult Physician Urgent Consulting Provider: Dario Valles Consult Reason/Comments: acute appendicitis Do you want consulting provider notified?: Yes 05/16/24 15:39 Consult Physician Urgent Consulting Provider: Jelani Krishnamurthy Consult Reason/Comments: acute appendicitis Do you want consulting provider notified?: Yes 05/22/24 14:26 Consult Physician Routine Consulting Provider: Marciel Banks Consult Reason/Comments: vaginal discharge Do you want consulting provider notified?: Yes Primary care physician: Jasson Morales Hospital Course: Final diagnosis Acute diverticulitis with perforation: Worsening pneumoperitoneum with sepsis, p resent on admission status post exploratory laparotomy, diverting colostomy and small bowel resection Leukocytosis, secondary to above with concerns of abdominal surgical site infection, improved, cultures from the surgical site showing E. coli Fevers, present on admission secondary to above, resolved defibrillator shock: With history of CAD status post stent in August [address] Hypertension, currently normotensive Hyperlipidemia Chronic systolic CHF, not in exacerbation, currently euvolemic A-fib with RVR, currently rate controlled Obesity with a BMI 31.0 Stage II sacral decubitus ulcer, present on admission with worsening bilateral buttock excoriation and stage II ulcers GI prophylaxis DVT prophylaxis Full code Discharge disposition Patient is being discharged in a stable condition with guarded prognosis to [facility]. Patient will follow-up with Dr. Morales in the outpatient setting upon discharge. Patient is to continue with oral Cipro, Flagyl, Diflucan for 1 week and close outpatient follow-up with infectious disease and general surgery as scheduled. Total time taken is greater than 35 minutes. Hospital course This is a 73-year-old female who was recently admitted with acute diverticulitis with perforation status post exploratory laparotomy with diverting colostomy and small bowel resection. Patient also with significant cardiac history with AICD and atrial fibrillation and cardiomyopathy with an EF of 40 to 45% with coronary artery disease and previous stenting along with mild heart failure exacerbation. Patient was maintained on IV Lasix and will transition to oral Lasix daily and recommend close monitoring of kidney functions and electrolytes. Patient is maintained on a dysphagia 3 chopped diet and tolerating and an ostomy is functioning. Patient has extensive abdominal wound site infection and cultures have finalized showing E. coli with Daria albicans and bacterioids and will continue on oral Cipro, Flagyl, Diflucan for 1 week per ID recommendations. Patient to continue with local wound care as mentioned previously and close outpatient follow-up with the wound care center. Patient with extensive sacral ulcers on bilateral buttock, worsening with prolonged hospitalization will require wound care and frequent offloading as well per ID recommendations. Patient has had prolonged hospitalization and is extremely weak initially family thought they could bring the patient home with home care although patient is a two-person maximum assist and was independent prior. Patient is agreeable to [facility] and has been accepted. Insurance authorization was obtained and patient has been cleared by consultations. Please refer to other consultation notes for further HPI. Currently no reports of chest pain, shortness of breath, or palpit ations. Patient is afebrile. No reports of nausea or vomiting and patient is tolerating diet. Patient will be going to [facility] today. Guarded prognosis and high risk for readmissions given significant comorbidities. Family also discussed possible hospice and if patient clinically deteriorates, they have been instructed to follow-up with primary care provider to discuss possible hospice options. Physical exam: Gen: This is a 73-year-old female who is awake, alert and oriented x 3, well- developed, elderly appearing, ill-appearing HEENT: Head is atraumatic, normocephalic. Pupils equal, round. Sclerae is anicteric. NECK: Supple. No JVD. No lymphadenopathy. No thyromegaly. LUNGS: Diminished breath sounds bilaterally otherwise clear to auscultation. No wheezes or rhonchi. No intercostal retractions. HEART: S1, S2 are muffled ABDOMEN: Soft. Obese, tender bowel sounds are present. No masses. Significant abdominal wound mid that has dressings that are dry and intact, VAUGHN drains to remain, left-sided ostomy with stool and gas noted EXTREMITIES: No pedal edema. No calf tenderness. Improvements in bilateral lower extremity and upper extremity edema noted NEUROLOGICAL: Patient is awake, alert and oriented x3. Cranial nerves 2 through 12 are grossly intact. Diffusely weak Please refer to medication reconciliation sheet for a list of medications. The impression and plan of care has been dictated by Lisy Jones, Nurse Practitioner as directed. Dr. Shahzad MD I have performed a history and examination and MDM of this patient, discussed the same with the dictator, and agree with the dictator's assessment and plan as written ,documented as a scribe. Based on total visit time, I have performed more than 50% of the visit. Patient Condition at Discharge: Fair Plan - Discharge Summary New Discharge Prescriptions: New Citalopram Hydrobromide [CeleXA] 20 mg PO HS tab Benzocaine/Menthol Lozeng [Cepacol lozenge] 1 each MUCOUS MEM Q1HR PRN lozenge PRN Reason: Sore Throat Fluconazole [Diflucan] 100 mg PO DAILY 7 Days #7 tab Apixaban [Eliquis] 5 mg PO BID tab metroNIDAZOLE [Flagyl] 500 mg PO TID 7 Days #21 tab Folic Acid 1 mg PO DAILY@1200 tab Furosemide [Lasix] 40 mg PO DAILY #60 tab polyethylene glycoL 3350 [Miralax] 17 gm PO DAILY packet Nystatin 100,000 Unit/ml Susp [Mycostatin Oral Susp] 500,000 unit PO QID ml Metoclopramide [Reglan] 5 mg PO TID #90 tab Sennosides [Senokot] 8.6 mg PO BID PRN tab PRN Reason: Constipation Acetaminophen Tab [Tylenol] 500 mg PO Q6HR PRN tab PRN Reason: Fever And/ Or Pain Ciprofloxacin HCl [Cipro] 500 mg PO Q12HR 7 Days #14 tab Amiodarone [Cordarone] 200 mg PO TID tab Ipratropium-Albuterol Nebulize [Duoneb 0.5 mg-3 mg/3 ml Soln] 3 ml INHALATION RT-TID each Multivitamins, Thera [Multivitamin (formulary)] 1 each PO DAILY@1200 tab oxyCODONE-APAP 5-325MG [Percocet 5-325 mg] 1 each PO Q6HR PRN #4 tab PRN Reason: Pain Pantoprazole [Protonix] 40 mg PO DAILY #30 tab Metoprolol Succinate (ER) [Toprol XL] 50 mg PO DAILY tab Thiamine [Vitamin B-1] 100 mg PO BID-W/MEALS tab Zinc Oxide 20% Oint 1 applic TOPICAL DIRECTED each Continue Aspirin EC [Ecotrin Low Dose] 81 mg PO HS Atorvastatin [Lipitor] 40 mg PO DAILY #90 tab Nitroglycerin Sl Tabs [Nitrostat] 0.4 mg SL Q5M PRN PRN Reason: Chest Pain cefUROXime axetiL [Ceftin] 500 mg PO DIRECTED lisinopriL [Zestril] 20 mg PO BID #60 tab Spironolactone 25 mg PO DAILY Empagliflozin [Jardiance] 10 mg PO DAILY Discontinued Metoprolol Succinate (ER) [Toprol XL] 25 mg PO DAILY Clopidogrel [Plavix] 75 mg PO DAILY 30 Days #30 tab metroNIDAZOLE [Flagyl] 500 mg PO DIRECTED Discharge Medication List Aspirin EC [Ecotrin Low Dose] 81 mg PO HS 12/02/17 [History] Atorvastatin [Lipitor] 40 mg PO DAILY #90 tab 09/11/23 [Rx] lisinopriL [Zestril] 20 mg PO BID #60 tab 09/11/23 [Rx] Empagliflozin [Jardiance] 10 mg PO DAILY 04/15/24 [History] Spironolactone 25 mg PO DAILY 04/15/24 [History] Nitroglycerin Sl Tabs [Nitrostat] 0.4 mg SL Q5M PRN 05/09/24 [History] cefUROXime axetiL [Ceftin] 500 mg PO DIRECTED 05/16/24 [History] Acetaminophen Tab [Tylenol] 500 mg PO Q6HR PRN tab 06/07/24 [Rx] Amiodarone [Cordarone] 200 mg PO TID tab 06/07/24 [Rx] Apixaban [Eliquis] 5 mg PO BID tab 06/07/24 [Rx] Benzocaine/Menthol Lozeng [Cepacol lozenge] 1 each MUCOUS MEM Q1HR PRN lozenge 06/07/24 [Rx] Ciprofloxacin HCl [Cipro] 500 mg PO Q12HR 7 Days #14 tab 06/07/24 [Rx] Citalopram Hydrobromide [CeleXA] 20 mg PO HS tab 06/07/24 [Rx] Fluconazole [Diflucan] 100 mg PO DAILY 7 Days #7 tab 06/07/24 [Rx] Folic Acid 1 mg PO DAILY@1200 tab 06/07/24 [Rx] Furosemide [Lasix] 40 mg PO DAILY #60 tab 06/07/24 [Rx] Ipratropium-Albuterol Nebulize [Duoneb 0.5 mg-3 mg/3 ml Soln] 3 ml INHALATION RT-TID each 06/07/24 [Rx] Metoclopramide [Reglan] 5 mg PO TID #90 tab 06/07/24 [Rx] Metoprolol Succinate (ER) [Toprol XL] 50 mg PO DAILY tab 06/07/24 [Rx] Multivitamins, Thera [Multivitamin (formulary)] 1 each PO DAILY@1200 tab 06/07/24 [Rx] Nystatin 100,000 Unit/ml Susp [Mycostatin Oral Susp] 500,000 unit PO QID ml 06/07/24 [Rx] Pantoprazole [Protonix] 40 mg PO DAILY #30 tab 06/07/24 [Rx] Sennosides [Senokot] 8.6 mg PO BID PRN tab 06/07/24 [Rx] Thiamine [Vitamin B-1] 100 mg PO BID-W/MEALS tab 06/07/24 [Rx] Zinc Oxide 20% Oint 1 applic TOPICAL DIRECTED each 06/07/24 [Rx] metroNIDAZOLE [Flagyl] 500 mg PO TID 7 Days #21 tab 06/07/24 [Rx] oxyCODONE-APAP 5-325MG [Percocet 5-325 mg] 1 each PO Q6HR PRN #4 tab 06/07/24 [Rx] polyethylene glycoL 3350 [Miralax] 17 gm PO DAILY packet 06/07/24 [Rx] Follow up Appointment(s)/Referral(s): [facility] [NON-STAFF] - 1 Week Jasson Morales [Primary Care Provider] - 1-2 days Activity/Diet/Wound Care/Special Instructions: [facility] [place] Activity as tolerated Continue incentive spirometer use at least 10 times every hour while awake Continue scheduled bowel regimen and as needed Continue dysphagia 3 chopped diet Colostomy: [place] 1 piece cut to fit #[id number] Change every 3 to 5 days and with any leaking; empty appliance when no more than half full Last Changed: Wound Care Orders: Abdomen: Continue with wet-to-dry dressings and change daily or if becoming soiled Stage II pressure ulcer right buttocks: Continue with dry Aquacel silver dressing and frequent changes in positioning every 2 hours and offloading. Apply zinc barrier cream to the periwound and cover with the sacral border foam or ABD with paper tape Stage II pressure ulcer left buttocks: Continue with dry Aquacel silver dressing and frequent changes in positioning every 2 hours and offloading, using offloading pillow while in the seat Recommend up in the chair at least 3-5 times daily Continue with antibiotics for 1 week per ID recommendations Recommend repeat CBC, CMP, magnesium in 2 to 3 days Follow-up with general surgery outpatient in 1 to 2 weeks Follow-up with cardiology outpatient Follow-up primary care provider on discharge Discharge Disposition: TRANSFER TO SNF/ECF
--- NOTE | 2024-06-07 12:09 | P.PN ---
Subjective Progress Note Date: 06/07/24 CHIEF COMPLAINT: Perforated diverticulitis HISTORY OF PRESENT ILLNESS: Postop day #20 status post exploratory laparotomy, diverting colostomy and small bowel resection. Patient's ostomy is functioning. Patient reports her pain is controlled. Patient did work with physical therapy yesterday. Patient is getting discharged today to [facility]. Afebrile. WBC 6.4 PHYSICAL EXAM: VITAL SIGNS: Reviewed. GENERAL: no acute distress. ABDOMEN: Soft. Nondistended. Incisional dressings are clean. Decreased purulent drainage from incision site. VAUGHN drain with minimal purulent drainage. ostomy functioning. ASSESSMENT: 1. Perforated diverticulitis status post diverting colostomy 2. Abdominal wound infection PLAN: -Patient stable for discharge from surgical standpoint when medically cleared -Antibiotics per infectious disease -Continue local wound care with wet-to-dry dressing changes to abdominal incision daily or as needed if soiled -Patient to be discharged with VAUGHN drain -Encourage patient to increase protein intake to help promote wound healing Physician Cattle Broker note has been reviewed by physician. Signing provider agrees with the documented findings, assessment, and plan of care. Objective - Vital Signs Vital signs: Vital Signs Temp 98.0 F 06/07/24 08:10 Pulse 67 06/07/24 08:10 Resp 18 06/07/24 08:10 BP 131/81 06/07/24 08:10 Pulse Ox 95 06/07/24 08:10 FiO2 Intake & Output 06/06/24 06/07/24 06/07/24 18:59 06:59 18:59 Output Total 1500 725 50 Balance -1500 -725 -50 Weight 60 kg Output: Drainage 25 Right Abdomen 25 Urine 1500 500 Stool 200 50 Other: Voiding Method External Catheter External Catheter External Catheter - Labs CBC & Chem 7: 06/07/24 06:25 06/07/24 06:25 Labs: Abnormal Lab Results - Last 24 Hours (Table) 06/07/24 06/07/24 Range/Units 06:25 06:25 Hgb 9.8 L (11.4-16.0) gm/dL Hct 32.8 L (34.0-46.0) % MCH 24.9 L (25.0-35.0) pg MCHC 29.9 L (31.0-37.0) g/dL RDW 17.8 H (11.5-15.5) % Sodium 132 L (137-145) mmol/L Creatinine 0.42 L (0.52-1.04) mg/dL Total Protein 6.1 L (6.3-8.2) g/dL Albumin 2.3 L (3.5-5.0) g/dL
[2024-06-07 13:49] VITALS: BP 119/65; PULSE 90; RESP 17; TEMP 97.8
--- NOTE | 2024-06-08 12:33 | P.PN ---
Subjective Progress Note Date: 06/07/24 Principal diagnosis: Reason for follow-up is perforated diverticulitis and peritonitis Patient is a 73-year-old female with a past medical history significant for hypertension hyperlipidemia [place] atrial fibrillation, patient was recently admitted at this facility and has been diagnosed with a diverticulitis with microperforation pending bed to the hospital with a defibrillator shock with repeat CT abdominal pelvis shows worsening pneumoperitoneum, patient was taken to the OR on 05/18/2024 status post small bowel resection because of adhesion that is and diverting colostomy operative report did not mention any abscess and no culture On today's evaluation that is 06/07/2024,the patient denies any fever or any chills, patient is breathing comfortably on room air, the patient denies chest pain shortness of breath and no significant cough, patient denies abdominal pain, no nausea vomiting or diarrhea. Patient feeling better. Patient white count 6.4, creatinine 0.42 Objective - Vital Signs Vital signs: Vital Signs Temp 97.8 F 06/07/24 11:30 Pulse 90 06/07/24 11:30 Resp 17 06/07/24 11:30 BP 119/65 06/07/24 11:30 Pulse Ox 94 L 06/07/24 11:30 FiO2 Intake & Output 06/06/24 06/07/24 06/07/24 18:59 06:59 18:59 Output Total 1500 725 850 Balance -1500 -725 -850 Weight 60 kg Output: Drainage 25 Right Abdomen 25 Urine 1500 500 800 Stool 200 50 Other: Voiding Method External Catheter External Catheter External Catheter - Exam GENERAL DESCRIPTION: An elderly female lying in bed in no distress RESPIRATORY SYSTEM: Unlabored breathing , decreased breath sounds at bases HEART: S1 S2 regular rate and rhythm , ABDOMEN: Soft , abdominal surgeon is currently dressed - Labs CBC & Chem 7: 06/07/24 06:25 06/07/24 06:25 Labs: Abnormal Lab Results - Last 24 Hours (Table) 06/07/24 06/07/24 Range/Units 06:25 06:25 Hgb 9.8 L (11.4-16.0) gm/dL Hct 32.8 L (34.0-46.0) % MCH 24.9 L (25.0-35.0) pg MCHC 29.9 L (31.0-37.0) g/dL RDW 17.8 H (11.5-15.5) % Sodium 132 L (137-145) mmol/L Creatinine 0.42 L (0.52-1.04) mg/dL Total Protein 6.1 L (6.3-8.2) g/dL Albumin 2.3 L (3.5-5.0) g/dL Assessment and Plan (1) Intra-abdominal abscess Status: Acute Code(s): K65.1 - PERITONEAL ABSCESS SNOMED Code(s): 00199481 (2) Peritonitis Status: Acute Code(s): K65.9 - PERITONITIS, UNSPECIFIED SNOMED Code(s): 83288844 (3) Perforation of sigmoid colon due to diverticulitis Status: Acute Code(s): K57.20 - DVTRCLI OF LG INT W PERFORATION AND ABSCESS W/O BLEEDING SNOMED Code(s): 5994074355601097 (4) Stage II pressure ulcer of sacral region Status: Acute Code(s): L89.152 - PRESSURE ULCER OF SACRAL REGION, STAGE 2 SNOMED Code(s): 51823080509225 Plan: 1patient presented to hospital with sepsis in this patient who did have fever tachycardia elevated white count source is complicated diverticulitis now with evidence of pneumoperitoneum and worsening inflammatory changes will need to cover for the enteric gram-negative both aerobes and anaerobes 2-patient is status post laparotomy small bowel resection and diverting colostomyoperative report did not mention any abscess and no culture 3-patient noticed to have drainage from the lower end of the incision which has been opened up Obtain CT Abdominal Pelvis with Some Phlegmon Changes and Free Air but Did Not Mention Any Abscess Collection 4patient abdominal culture growing E. coli, bacteroids and Daria 5patient has developed significant excoriation to bilateral gluteal/sacral area stage II ulcer, will advised local wound care with dry Aquacel silver dressing and frequent changing her position 6-patient is afebrile white count has been normal, patient has received adequate IV Zosyn and Eraxis consider short course of oral Cipro Flagyl and Diflucan x 7 days on discharge discussed with TEST EVALUATOR for admitting team Dictation was produced using [employer] dictation software. please excuse any grammatical, word or spelling errors. Time with Patient: Less than 30
--- NOTE | 2024-06-08 12:33 | P.PN ---
Subjective Progress Note Date: 06/06/24 Principal diagnosis: Reason for follow-up is perforated diverticulitis and peritonitis Patient is a 73-year-old female with a past medical history significant for hypertension hyperlipidemia [place] atrial fibrillation, patient was recently admitted at this facility and has been diagnosed with a diverticulitis with microperforation pending bed to the hospital with a defibrillator shock with repeat CT abdominal pelvis shows worsening pneumoperitoneum, patient was taken to the OR on 05/18/2024 status post small bowel resection because of adhesion that is and diverting colostomy operative report did not mention any abscess and no culture On today's evaluation that is 06/06/2024, Patient is afebrile this morning patient denies having any chest pain shortness of breath or cough, the patient is breathing comfortably on room air, patient abdominal pain has decreased in i ntensity no nausea no vomiting did have output in colostomy. Patient white count is 7.7, creatinine 0.40 Objective - Vital Signs Vital signs: Vital Signs Temp 98 F 06/06/24 11:51 Pulse 68 06/06/24 11:51 Resp 18 06/06/24 11:51 BP 127/68 06/06/24 11:51 Pulse Ox 94 L 06/06/24 11:51 FiO2 Intake & Output 06/05/24 06/06/24 06/06/24 18:59 06:59 18:59 Output Total 450 350 150 Balance -450 -350 -150 Output: Urine 450 350 150 Other: Voiding Method External Catheter External Catheter External Catheter # Voids 2 - Exam GENERAL DESCRIPTION: An elderly female lying in bed in no distress RESPIRATORY SYSTEM: Unlabored breathing , decreased breath sounds at bases HEART: S1 S2 regular rate and rhythm , ABDOMEN: Soft , abdominal surgeon is currently dressed - Labs CBC & Chem 7: 06/07/24 06:25 06/07/24 06:25 Labs: Abnormal Lab Results - Last 24 Hours (Table) 06/06/24 06/06/24 Range/Units 06:20 06:20 Hgb 9.6 L (11.4-16.0) gm/dL Hct 32.0 L (34.0-46.0) % MCH 24.8 L (25.0-35.0) pg MCHC 29.9 L (31.0-37.0) g/dL RDW 17.8 H (11.5-15.5) % Sodium 133 L (137-145) mmol/L Creatinine 0.40 L (0.52-1.04) mg/dL Glucose 105 H (74-99) mg/dL Assessment and Plan (1) Intra-abdominal abscess Status: Acute Code(s): K65.1 - PERITONEAL ABSCESS SNOMED Code(s): 14964227 (2) Peritonitis Status: Acute Code(s): K65.9 - PERITONITIS, UNSPECIFIED SNOMED Code(s): 49014472 (3) Perforation of sigmoid colon due to diverticulitis Status: Acute Code(s): K57.20 - DVTRCLI OF LG INT W PERFORATION AND ABSCESS W/O BLEEDING SNOMED Code(s): 7945048209451726 (4) Stage II pressure ulcer of sacral region Status: Acute Code(s): L89.152 - PRESSURE ULCER OF SACRAL REGION, STAGE 2 SNOMED Code(s): 25758314006855 Plan: 1patient presented to hospital with sepsis in this patient who did have fever tachycardia elevated white count source is complicated diverticulitis now with evidence of pneumoperitoneum and worsening inflammatory changes will need to cover for the enteric gram-negative both aerobes and anaerobes 2-patient is status post laparotomy small bowel resection and diverting colostomyoperative report did not mention any abscess and no culture 3-patient noticed to have drainage from the lower end of the incision which has been opened up Obtain CT Abdominal Pelvis with Some Phlegmon Changes and Free Air but Did Not Mention Any Abscess Collection 4patient abdominal culture growing E. coli, bacteroids and Daria 5patient has developed significant excoriation to bilateral gluteal/sacral area stage II ulcer, will advised local wound care with dry Aquacel silver dressing and frequent changing her position 6-patient is afebrile white count has been normal, patient to continue with IV Zosyn and Eraxis while inpatient finishing therapy with oral biotic on discharge, Dictation was produced using [employer] dictation software. please excuse any grammatical, word or spelling errors. Time with Patient: Less than 30
== END 2024-06-07 15:50 | DRG 853 ==
LOC: EC 09:35 → 3SCARD 12:57 → OBSVTOIN 05-17 09:50 → 3SCARD 05-17 22:52
PROVIDERS: ADMIT Internal Medicine; ATTEND Internal Medicine
PROC: 0DBN0ZZ Excision of Sigmoid Colon, Open Approach (ICD-10-PCS; 2024-05-18)
PROC: 0D1E0Z4 Bypass Large Intestine to Cutaneous, Open Approach (ICD-10-PCS; principal; 2024-05-18 11:55)
DX: A41.9 Sepsis, unspecified organism (principal); K65.1 Peritoneal abscess; K65.9 Peritonitis, unspecified; I50.22 Chronic systolic (congestive) heart failure; K56.609 Unspecified intestinal obstruction, unspecified as to partial versus complete obstruction; K57.20 Diverticulitis of large intestine with perforation and abscess without bleeding; N17.9 Acute kidney failure, unspecified; J98.11 Atelectasis; T81.43XA Infection following a procedure, organ and space surgical site, initial encounter; L89.152 Pressure ulcer of sacral region, stage 2; L89.312 Pressure ulcer of right buttock, stage 2; L89.322 Pressure ulcer of left buttock, stage 2; I11.0 Hypertensive heart disease with heart failure; E66.9 Obesity, unspecified; Z68.31 Body mass index [BMI] 31.0-31.9, adult; I25.5 Ischemic cardiomyopathy; I49.3 Ventricular premature depolarization; Z95.810 Presence of automatic (implantable) cardiac defibrillator; N89.8 Other specified noninflammatory disorders of vagina; E87.6 Hypokalemia; R04.0 Epistaxis; E78.5 Hyperlipidemia, unspecified; I25.10 Atherosclerotic heart disease of native coronary artery without angina pectoris; I25.2 Old myocardial infarction; R13.10 Dysphagia, unspecified; B37.2 Candidiasis of skin and nail; I48.0 Paroxysmal atrial fibrillation; B96.20 Unspecified Escherichia coli [E. coli] as the cause of diseases classified elsewhere; Z91.041 Radiographic dye allergy status; Z79.84 Long term (current) use of oral hypoglycemic drugs; Z79.82 Long term (current) use of aspirin; Z79.899 Other long term (current) drug therapy; Z79.02 Long term (current) use of antithrombotics/antiplatelets; Z95.5 Presence of coronary angioplasty implant and graft
CPT/HCPCS: 36410; 36415; 36573; 71045; 71046; 74176; 76937; 80048; 80051; 80053; 80061; 81001; 83735; 84132; 84443; 84484; 85025; 85610; 85730; 87040; 87070; 87075; 87077; 87186; 87205; 88307; 93005; 94640; 94760; 99285

== ENCOUNTER 2024-06-14 18:45 | Inpatient (IN) | payer MEDICARE ==
--- NOTE | 2024-06-14 20:11 | ED ---
Abdominal Pain HPI - General Chief Complaint: Abdominal Pain Stated Complaint: abd pain-gi bleeding Time Seen by Provider: 06/14/24 19:07 Source: patient, RN notes reviewed, old records reviewed Mode of arrival: EMS - History of Present Illness Initial Comments: This is a 73-year-old female to the ER for evaluation of altered mental status patient relates he has colostomy in place and having significant GI bleed stool, patient is here for postoperative complications, nonhealing wound MD Complaint: abdominal pain -: days(s) Location: diffuse, epigastric, suprapubic Radiation: epigastric, suprapubic Migration to: epigastric, suprapubic Severity: moderate Severity scale (1-10): 7 Quality: fullness Consistency: constant Improves With: nothing Worsens With: nothing Associated Symptoms: nausea Treatments Prior to Arrival: other (0) - Related Data Home Medications Medication Instructions Recorded Confirmed Aspirin EC [Ecotrin Low Dose] 81 mg PO HS 12/02/17 06/15/24 Empagliflozin [Jardiance] 10 mg PO DAILY 04/15/24 06/15/24 Spironolactone 25 mg PO DAILY 04/15/24 06/15/24 Nitroglycerin Sl Tabs [Nitrostat] 0.4 mg SL Q5M PRN 05/09/24 06/15/24 Amiodarone [Cordarone] 200 mg PO TID@0600,1400,2100 06/15/24 06/15/24 Apixaban [Eliquis] 5 mg PO BID@0800,1700 06/15/24 06/15/24 Benzocaine/Menthol Lozeng [Cepacol 1 lozenge MUCOUS MEM Q1HR PRN 06/15/24 06/15/24 lozenge] Collagenase [Santyl Ointment] 1 applic TOPICAL DAILY 06/15/24 06/15/24 Furosemide [Lasix] 40 mg PO DAILY 06/15/24 06/15/24 Ipratropium-Albuterol Nebulize 3 ml INHALATION RT-TID@06,14,21 06/15/24 06/15/24 [Duoneb 0.5 mg-3 mg/3 ml Soln] Stanislav Packet 1 packet PO BID@0800,1700 06/15/24 06/15/24 Lidocaine Cream 5% 1 applic TOPICAL WE 06/15/24 06/15/24 Magnesium Hydroxide [Milk of 7,200 mg PO Q48H PRN 06/15/24 06/15/24 Magnesia Concentrate] Metoclopramide [Reglan] 5 mg PO TID@0600,1400,2100 06/15/24 06/15/24 Multivitamins, Thera [Multivitamin 1 tab PO DAILY@1200 06/15/24 06/15/24 (formulary)] Na Phos,M-B/Na Phos,Di-Ba [Fleet 133 ml RECTAL DAILY PRN 06/15/24 06/15/24 Adult] Ondansetron [Zofran] 4 mg PO Q8HR PRN 06/15/24 06/15/24 Sennosides-Docusate Sodium 1 tab PO BID PRN 06/15/24 06/15/24 [Senokot-S] Thiamine [Vitamin B-1] 100 mg PO BID@0800,1700 06/15/24 06/15/24 bisacodyL [Dulcolax] 10 mg RECTAL DAILY PRN 06/15/24 06/15/24 lisinopriL [Zestril] 20 mg PO BID@0800,1700 06/15/24 06/15/24 oxyCODONE-APAP 5-325MG [Percocet 1 tab PO Q6HR PRN 06/15/24 06/15/24 5-325 mg] Previous Rx's Medication Instructions Recorded Atorvastatin [Lipitor] 40 mg PO DAILY #90 tab 09/11/23 Acetaminophen Tab [Tylenol] 500 mg PO Q6HR PRN tab 06/07/24 Citalopram Hydrobromide [CeleXA] 20 mg PO HS tab 06/07/24 Folic Acid 1 mg PO DAILY@1200 tab 06/07/24 Metoprolol Succinate (ER) [Toprol 50 mg PO DAILY tab 06/07/24 XL] Pantoprazole [Protonix] 40 mg PO DAILY #30 tab 06/07/24 polyethylene glycoL 3350 [Miralax] 17 gm PO DAILY packet 06/07/24 Allergies Allergy/AdvReac Type Severity Reaction Status Date / Time Iodinated Contrast Media Allergy Wheezing/hi Verified 06/15/24 08:18 ves iodine Allergy Wheezing/hi Verified 06/15/24 08:18 ves Review of Systems ROS Statement: Those systems with pertinent positive or pertinent negative responses have been documented in the HPI. ROS Other: All systems not noted in ROS Statement are negative. Past Medical History Past Medical History: Atrial Fibrillation, Hyperlipidemia, Hypertension, Myocardial Infarction (ME) Last Myocardial Infarction Date:: 09/07/2023 History of Any Multi-Drug Resistant Organisms: None Reported Past Surgical History: No Surgical Hx Reported, Heart Catheterization With Stent Additional Past Surgical History / Comment(s): Cardiac stents Past Anesthesia/Blood Transfusion Reactions: No Reported Reaction Date of Last Stent Placement:: 09/07/2023 Past Psychological History: No Psychological Hx Reported Smoking Status: Never smoker Past Alcohol Use History: None Reported, Unable to Obtain Past Drug Use History: None Reported General Exam General appearance: alert, in no apparent distress Head exam: Present: atraumatic, normocephalic, normal inspection Eye exam: Present: normal appearance, PERRL, EOMI. Absent: scleral icterus, conjunctival injection, periorbital swelling ENT exam: Present: normal exam, mucous membranes moist Neck exam: Present: normal inspection. Absent: tenderness, meningismus, lymphadenopathy Respiratory exam: Present: normal lung sounds bilaterally. Absent: respiratory distress, wheezes, rales, rhonchi, stridor Cardiovascular Exam: Present: regular rate, normal rhythm, normal heart sounds. Absent: systolic murmur, diastolic murmur, rubs, gallop, clicks GI/Abdominal exam: Present: soft, normal bowel sounds. Absent: distended, tenderness, guarding, rebound, rigid Extremities exam: Present: normal inspection, full ROM, normal capillary refill. Absent: tenderness, pedal edema, joint swelling, calf tenderness Back exam: Present: normal inspection Neurological exam: Present: alert, oriented X3, CN II-XII intact Psychiatric exam: Present: normal affect, normal mood Skin exam: Present: warm, dry, intact, normal color. Absent: rash Course Vital Signs 06/14/24 06/14/24 06/14/24 19:08 19:17 21:34 Temperature Pulse Rate 77 77 67 Pulse Rate [ Left] Respiratory 94 H 16 16 Rate Blood Pressure 105/74 105/78 96/60 Blood Pressure [Left Arm] O2 Sat by Pulse 94 L 94 L 93 L Oximetry 06/14/24 06/15/24 06/15/24 23:15 01:24 03:23 Temperature Pulse Rate 63 65 62 Pulse Rate [ Left] Respiratory 16 16 12 Rate Blood Pressure 97/63 103/62 110/68 Blood Pressure [Left Arm] O2 Sat by Pulse 95 95 95 Oximetry 06/15/24 06/15/24 06/15/24 05:22 06:35 07:53 Temperature 98.0 F Pulse Rate 64 63 64 Pulse Rate [ Left] Respiratory 16 16 16 Rate Blood Pressure 126/53 111/58 120/68 Blood Pressure [Left Arm] O2 Sat by Pulse 95 95 98 Oximetry 06/15/24 06/15/24 06/15/24 11:00 15:22 21:00 Temperature Pulse Rate 65 67 75 Pulse Rate [ Left] Respiratory 18 20 16 Rate Blood Pressure 115/66 102/72 125/72 Blood Pressure [Left Arm] O2 Sat by Pulse 98 96 98 Oximetry 06/16/24 06/16/24 00:00 00:15 Temperature 97.8 F Pulse Rate 64 Pulse Rate [ 70 Left] Respiratory 18 18 Rate Blood Pressure 138/64 Blood Pressure 135/83 [Left Arm] O2 Sat by Pulse 99 96 Oximetry - Reevaluation(s) Reevaluation #1: Medical records reviewed Reevaluation #2: Patient symptoms unchanged Reevaluation #3: Patient symptoms unchanged Reevaluation #4: Was pt. sent in by a medical professional or institution (Dr. PA, COMPRESSOR OPERATOR, urgent care, hospital, or retirement...) When possible be specific @ -no Did you speak to anyone other than the patient for history (EMS, parent, family, police, friend...)? What history was obtained from this source @ -no Did you review nursing and triage notes (agree or disagree)? Why? @ -agree Are old charts reviewed (outside hosp., previous admission, EMS record, old EKG, old radiological studies, urgent care reports/EKG's, retirement records)? Report findings @ -yes Differential Diagnosis (chest pain, altered mental status, abdominal pain women, abdominal pain men, vaginal bleeding, weakness, fever, dyspnea, syncope, headache, dizziness, GI bleed, back pain, seizure, CVA, palpatations, mental health, musculoskeletal)? @ -prior EKG interpreted by me (3pts min.). @ -yes X-rays interpreted by me (1pt min.). @ -no CT interpreted by me (1pt min.). @ -Yes postoperative changes U/S interpreted by me (1pt. min.). @ -no What testing was considered but not performed or refused? (CT, X-rays, U/S, labs)? Why? @ -none What meds were considered but not given or refused? Why? @ -none Did you discuss the management of the patient with other professionals (professionals i.e. Dr., PA, COMPRESSOR OPERATOR, lab, RT, psych nurse, social work supervisor, environmental lawyer, teacher, law enforcement officer, clinical case manager)? Give summary @ -no Was smoking cessation discussed for >3mins.? @ -no Was critical care preformed (if so, how long)? @ -no Were there social determinants of health that impacted care today? How? (Homelessness, low income, unemployed, alcoholism, drug addiction, transportation, low edu. Level, literacy, decrease access to med. care, [facility], rehab)? @ -none Was there de-escalation of care discussed even if they declined (Discuss DNR or withdrawal of care, Hospice)? DNR status @ -no What co-morbidities impacted this encounter? (DM, HTN, Smoking, COPD, CAD, Cancer, CVA, ARF, Chemo, Hep., AIDS, mental health diagnosis, sleep apnea, morbid obesity)? @ -none Was patient admitted / discharged? Hospital course, mention meds given and route, prescriptions, significant lab abnormalities, going to OR and other pe rtinent info. @ - 73 female recent postoperative patient of this hospital coming in for significant blood in the ostomy. Patient has no other postsurgical changes found on imaging but will admit for surgical evaluation and treatment Admitted Undiagnosed new problem with uncertain prognosis? @ -no Drug Therapy requiring intensive monitoring for toxicity (Heparin, Nitro, Insulin, Cardizem)? @ -no Were any procedures done? @ -no Diagnosis/symptom? @ -Postoperative complication GI bleed Acute, or Chronic, or Acute on Chronic? @ -Acute Uncomplicated (without systemic symptoms) or Complicated (systemic symptoms)? @ -Complicated Side effects of treatment? @ -no Exacerbation, Progression, or Severe Exacerbation? @ -exacerbation Poses a threat to life or bodily function? How? (Chest pain, USA, ME, pneumonia, PE, COPD, DKA, ARF, appy, cholecystitis, CVA, Diverticulitis, Homicidal, Suicid al, threat to staff... and all critical care pts) @ -yes extremes of age with postoperative complication Reevaluation #5: Differential Abdominal Pain Women: Appendicitis, Cholecystitis, diverticulosis, ischemic bowel, pancreatitis, hepatitis, UTI, gastroenteritis, AAA, incarcerated hernia, bowel obstruction, constipation, inflammatory bowel, hepatitis, peptic ulcer disease, splenic infarction, perforated viscus, vulvitis, ovarian torsion, PID, kidney stone, placenta abruption, this is not meant to be an all-inclusive list - Consultations Consultation #1: Spoke with admitting physicians who agreed to admit this patient Medical Decision Making - Medical Decision Making 73 female recent postoperative patient of this hospital coming in for significant blood in the ostomy. Patient has no other postsurgical changes found on imaging but will admit for surgical evaluation and treatment - Lab Data Result diagrams: 06/18/24 02:50 06/18/24 02:50 Lab Results 06/14/24 06/14/24 06/14/24 Range/Units 20:20 20:20 20:20 WBC 12.5 H (3.8-10.6) k/uL RBC 3.82 (3.80-5.40) m/uL Hgb 9.6 L (11.4-16.0) gm/dL Hct 31.9 L (34.0-46.0) % MCV 83.5 (80.0-100.0) fL MCH 25.1 (25.0-35.0) pg MCHC 30.1 L (31.0-37.0) g/dL RDW 19.2 H (11.5-15.5) % Plt Count 373 (150-450) k/uL MPV 7.3 Neutrophils % 84 % Lymphocytes % 9 % Monocytes % 5 % Eosinophils % 0 % Basophils % 0 % Neutrophils # 10.5 H (1.3-7.7) k/uL Lymphocytes # 1.1 (1.0-4.8) k/uL Monocytes # 0.7 (0-1.0) k/uL Eosinophils # 0.0 (0-0.7) k/uL Basophils # 0.0 (0-0.2) k/uL Hypochromasia Marked Anisocytosis Slight Sodium 135 L (137-145) mmol/L Potassium 3.7 (3.5-5.1) mmol/L Chloride 102 (98-107) mmol/L Carbon Dioxide 29 (22-30) mmol/L Anion Gap 4 mmol/L BUN 31 H (7-17) mg/dL Creatinine 0.55 (0.52-1.04) mg/dL Est GFR (CKD-EPI)AfAm >90 (>60 ml/min/1.73 sqM) Est GFR (CKD-EPI)NonAf >90 (>60 ml/min/1.73 sqM) Glucose 111 H (74-99) mg/dL Plasma Lactic Acid David 1.3 (0.7-2.0) mmol/L Calcium 8.6 (8.4-10.2) mg/dL Total Bilirubin 0.4 (0.2-1.3) mg/dL AST 23 (14-36) U/L ALT 12 (4-34) U/L Alkaline Phosphatase 95 (38-126) U/L Troponin I (0.000-0.034) ng/mL Total Protein 6.0 L (6.3-8.2) g/dL Albumin 2.3 L (3.5-5.0) g/dL Amylase 51 (30-110) U/L Lipase 229 (23-300) U/L 06/14/24 Range/Units 20:20 WBC (3.8-10.6) k/uL RBC (3.80-5.40) m/uL Hgb (11.4-16.0) gm/dL Hct (34.0-46.0) % MCV (80.0-100.0) fL MCH (25.0-35.0) pg MCHC (31.0-37.0) g/dL RDW (11.5-15.5) % Plt Count (150-450) k/uL MPV Neutrophils % % Lymphocytes % % Monocytes % % Eosinophils % % Basophils % % Neutrophils # (1.3-7.7) k/uL Lymphocytes # (1.0-4.8) k/uL Monocytes # (0-1.0) k/uL Eosinophils # (0-0.7) k/uL Basophils # (0-0.2) k/uL Hypochromasia Anisocytosis Sodium (137-145) mmol/L Potassium (3.5-5.1) mmol/L Chloride (98-107) mmol/L Carbon Dioxide (22-30) mmol/L Anion Gap mmol/L BUN (7-17) mg/dL Creatinine (0.52-1.04) mg/dL Est GFR (CKD-EPI)AfAm (>60 ml/min/1.73 sqM) Est GFR (CKD-EPI)NonAf (>60 ml/min/1.73 sqM) Glucose (74-99) mg/dL Plasma Lactic Acid David (0.7-2.0) mmol/L Calcium (8.4-10.2) mg/dL Total Bilirubin (0.2-1.3) mg/dL AST (14-36) U/L ALT (4-34) U/L Alkaline Phosphatase (38-126) U/L Troponin I <0.012 (0.000-0.034) ng/mL Total Protein (6.3-8.2) g/dL Albumin (3.5-5.0) g/dL Amylase (30-110) U/L Lipase (23-300) U/L - Radiology Data Radiology results: report reviewed (CT of the abdomen of the pelvis is negative for acute disease), image reviewed Disposition Clinical Impression: Abdominal pain, GI bleed, Stage II pressure ulcer of right buttock, Postoperative abdominal pain Disposition: ADMITTED IP TO THIS [facility] Condition: Serious Is patient prescribed a controlled substance at d/c from ED?: No Time of Disposition: 21:45
[2024-06-14] MEDS: ONDANSETRON 4 MG/2 ML VIAL IVP STA (20:19)
[2024-06-14] MEDS: KETOROLAC 15 MG/ML 1 ML VIAL IVP STA (20:19)
[2024-06-14] MEDS: SODIUM CHLORIDE 0.9% 1,000 ML IV STA (20:23)
[2024-06-14 20:41] LABS: Anisocytosis Slight; Basophils % (A) 0 %; Eosinophils % (A) 0 %; HCT 31.9 % (34.0-46.0); HGB 9.6 gm/dL (11.4-16.0); Hypochromasia Marked; Lymphocytes # (A) 1.1 k/uL (1.0-4.8); Lymphocytes % (A) 9 %; MCH 25.1 pg (25.0-35.0); MCHC 30.1 g/dL (31.0-37.0); MCV 83.5 fL (80.0-100.0); Mean Platelet Volume 7.3; Monocytes # (A) 0.7 k/uL (0-1.0); Monocytes % (A) 5 %; Neutrophils # (A) 10.5 k/uL (1.3-7.7); Neutrophils % (A) 84 %; Platelet Count 373 k/uL (150-450); RBC 3.82 m/uL (3.80-5.40); RDW 19.2 % (11.5-15.5); WBC 12.5 k/uL (3.8-10.6)
[2024-06-14 20:50] LABS: ALT 12 U/L (4-34); AST 23 U/L (14-36); African American GFR (CKD) >90 (>60 ml/min/1.73 sqM); Albumin 2.3 g/dL (3.5-5.0); Alkaline Phosphatase 95 U/L (38-126); Amylase 51 U/L (30-110); Anion Gap 4 mmol/L; Blood Urea Nitrogen 31 mg/dL (7-17); Calcium 8.6 mg/dL (8.4-10.2); Carbon Dioxide 29 mmol/L (22-30); Chloride 102 mmol/L (98-107); Glucose 111 mg/dL (74-99); Lipase 229 U/L (23-300); Non-African American GFR(CKD) >90 (>60 ml/min/1.73 sqM); Potassium 3.7 mmol/L (3.5-5.1); Sodium 135 mmol/L (137-145); Total Bilirubin 0.4 mg/dL (0.2-1.3)
[2024-06-14] MEDS ORDERED: ONDANSETRON 4 MG/2 ML VIAL IVP PRN (21:55)
[2024-06-14] MEDS ORDERED: MORPHINE SULFATE 4 MG/ML SYRINGE IV PRN (21:55)
[2024-06-14] MEDS ORDERED: NALOXONE 0.4 MG/ML 1 ML VIAL IV PRN (21:55)
--- NOTE | 2024-06-14 22:11 | CT ---
EXAMINATION TYPE: CT abdomen pelvis wo con DATE OF EXAM: 06/14/2024 COMPARISON: 05/23/2024 INDICATION: Per EMS pt. has rcent colostomy after exploratory surgery for bowel obstruction. Pt. has bleeding about 400-500 cc in the colostomy today noticed by [facility] staff. Pt. also has a nose bleed this morning that lasted about 15-20 minutes. Pt. is AOx4 now andis pain free. DLP: 674 mGycm, Automated exposure control for dose reduction was used. CONTRAST: 0 mL of Isovue 300. Study performed without Oral Contrast TECHNIQUE: Axial images were obtained from above the diaphragm to the pubic rami in the axial plane a t 5 mm thick sections. Reconstructed images are reviewed on the computer in the coronal plane. FINDINGS: Limited CT sections are obtained the lung bases. The lung bases are clear. CT ABDOMEN: Liver: Normal Spleen: Normal Pancreas: Atrophic Adrenal glands: There is mild prominence of the adrenal glands. Gallbladder: There appears to be some increased density within the gallbladder. Small filling defect may be present. Cholelithiasis and excretion of contrast may be present. Kidneys: No masses are evident. No hydronephrosis is present. No cysts are present. There is a 0.3 cm calcification in the posterior left mid kidney. No hydroureter is evident. There is a 0.4 cm nono bstructing renal stone in the mid right kidney. There appears to be some malrotation of the right kid rex. Aorta: Vascular calcification is within the aorta. Inferior vena cava: Normal. CT PELVIS: Loops of bowel appear nonspecific. There is an ostomy in the midabdomen. There appears to be an open wound right lower quadrant. Drainage catheter is in right lower quadrant anterior position. Small alissa unt of free air may be adjacent to this catheter. No oral contrast was utilized. Appendix: Not visualized. Urinary bladder: Unremarkable Genitourinary structures: Uterus and ovaries appear unremarkable. Osseous structures: No suspicious lytic or sclerotic lesions. Degenerative changes are noted IMPRESSION: 1. Nonobstructing renal stones. 2. There is increased density within the gallbladder which can be related to contrast excretion or st asis. Small gallstone is present. No pericholecystic fluid or wall thickening is evident. 3. Dilatation of the right kidney. 4. No suspicious abnormality to account for active bleeding into the colostomy bag. Colostomy site ap pears normal. [facility], Workstation: [facility], 06/14/2024 10:09 PM
[2024-06-14] MEDS: SODIUM CHLORIDE 0.9% 1,000 ML IV SCH (23:14)
[2024-06-15 00:23] LABS: INR 1.4 (<1.2); Partial Thromboplastin Time 31.2 sec (22.0-30.0); Prothrombin Time 14.4 sec (10.0-12.5)
[2024-06-15 00:34] LABS: Amorphous Sediment,Urine Rare /hpf; Appearance,Urine Cloudy (Clear); Bilirubin,Urine Negative (Negative); Blood,Urine Moderate (Negative); Budding Yeast,Urine Rare /hpf; Color,Urine Yellow; Glucose,Urine (UA) 4+ (Negative); Ketones,Urine Negative (Negative); Leukocyte Esterase,Urine Negative (Negative); Nitrite,Urine Negative (Negative); PH, Urine 5.5 (5.0-8.0); Protein,Urine Trace (Negative); RBC,Urine 8 /hpf (0-5); Specific Gravity,Urine 1.019 (1.001-1.035); Squamous Epithelial Cell,Urine 1 /hpf (0-4); Uric Acid Crystals,Urine Occasional /hpf; Urobilinogen,Urine <2.0 mg/dL (<2.0); WBC,Urine 9 /hpf (0-5)
[2024-06-15 06:47] LABS: Anisocytosis Slight; Basophils % (A) 0 %; Eosinophils # (A) 0.1 k/uL (0-0.7); Eosinophils % (A) 1 %; HCT 28.8 % (34.0-46.0); Hypochromasia Marked; Lymphocytes # (A) 1.3 k/uL (1.0-4.8); Lymphocytes % (A) 11 %; MCH 26.5 pg (25.0-35.0); MCHC 31.3 g/dL (31.0-37.0); MCV 84.5 fL (80.0-100.0); Mean Platelet Volume 7.3; Monocytes # (A) 0.6 k/uL (0-1.0); Monocytes % (A) 5 %; Neutrophils # (A) 9.5 k/uL (1.3-7.7); Neutrophils % (A) 82 %; Platelet Count 292 k/uL (150-450); RBC 3.41 m/uL (3.80-5.40); RDW 19.3 % (11.5-15.5); WBC 11.6 k/uL (3.8-10.6)
[2024-06-15 07:11] LABS: ALT 11 U/L (4-34); AST 23 U/L (14-36); African American GFR (CKD) >90 (>60 ml/min/1.73 sqM); Albumin 2.1 g/dL (3.5-5.0); Alkaline Phosphatase 79 U/L (38-126); Anion Gap 2 mmol/L; Blood Urea Nitrogen 32 mg/dL (7-17); Calcium 8.5 mg/dL (8.4-10.2); Carbon Dioxide 28 mmol/L (22-30); Chloride 107 mmol/L (98-107); Glucose 89 mg/dL (74-99); Magnesium 1.8 mg/dL (1.6-2.3); Non-African American GFR(CKD) >90 (>60 ml/min/1.73 sqM); Phosphorus 3.8 mg/dL (2.5-4.5); Potassium 3.9 mmol/L (3.5-5.1); Sodium 137 mmol/L (137-145); Total Bilirubin 0.4 mg/dL (0.2-1.3); Total Protein 5.6 g/dL (6.3-8.2)
--- NOTE | 2024-06-15 10:33 | P.HPIM ---
History of Present Illness History of present illness; 73-year-old female with past medical history of hypertension, hyperlipidemia, ND, A-fib (on Eliquis) with recent hospital stay for small bowel resection and diverting colostomy presents after her daughter was changing her colostomy bag and noticed the contents were very dark. Patient reports yesterday afternoon her daughter was changing her colostomy bag and noticed a significant amount of black substance within the bag. At this time the daughter felt the patient needed to be seen in the hospital so they called EMS and she came to the ED from [facility]. Patient reports she has been vomiting for the last couple days at home. Patient initially reports that she was vomiting blood, but could not tell if the blood was coming from her vomit or from bleeding from her nose (patient notes the amount of blood is about a tablespoon). Patient reports she bleeds much more easily since she is on Eliqui s currently. Initial lab work done in the ER showed WBC 12.5 which is decreased to 11.6, hemoglobin 9.6 which decreased to 9.0, PT 14.4, INR 1.4, APTT 31.2, sodium 135 which increased 137, and with everything else within normal limits. Patient also had a UA done which showed a cloudy appearance, trace protein, 4+ glucose, moderate blood, 9 urine WBC, and occasional uric acid crystals. EKG done in the ER showed heart rate of , no ST segment elevation or depression seen, no T-wave inversions seen. CT of the abdomen showed increased density within the gallbladder, small gallstone, no gall bladder wall thickening, dilation of the right kidney, no suspicious abnormality to account for active bleeding into the colostomy bag. Colostomy site appears normal. Patient admitted to internal medicine service REVIEW OF SYSTEMS: CONSTITUTIONAL: No fever, no malaise, no fatigue. HEENT: No recent visual problems or hearing problems. Denied any sore throat. CARDIOVASCULAR: No chest pain, orthopnea, PND, no palpitations, no syncope. PULMONARY: No shortness of breath, no cough, no hemoptysis. GASTROINTESTINAL: No diarrhea, no nausea, no vomiting, no abdominal pain. NEUROLOGICAL: No headaches, no weakness, no numbness. HEMATOLOGICAL: Denies any bleeding or petechiae. GENITOURINARY: Denies any burning micturition, frequency, or urgency. MUSCULOSKELETAL/RHEUMATOLOGICAL: Denies any joint pain, swelling, or any muscle pain. ENDOCRINE: Denies any polyuria or polydipsia. The rest of the 14-point review of systems is negative. PHYSICAL EXAMINATION: GENERAL: The patient is alert and oriented x3, not in any acute distress. Well developed, well nourished. HEENT: Pupils are round and equally reacting to light. EOMI. No scleral icterus. No conjunctival pallor. Normocephalic, atraumatic. No pharyngeal erythema. No thyromegaly. CARDIOVASCULAR: S1 and S2 present. No murmurs, rubs, or gallops. PULMONARY: Chest is clear to auscultation, no wheezing or crackles. ABDOMEN: Soft, nontender, nondistended. No palpable organomegaly. Abdominal drainage tube noted in right mid abdomen, no signs of infection. Colostomy bag located left mid abdomen, black contents within bag, no signs of infection around colostomy site. MUSCULOSKELETAL: No joint swelling or deformity. EXTREMITIES: No cyanosis, clubbing, or pedal edema. NEUROLOGICAL: Gross neurological examination did not reveal any focal deficits. SKIN: No rashes. Assessment: 73-year-old female with a past medical history of hypertension, hyperlipidemia, ND, A-fib with recent hospital stay for small bowel resection and diverting colostomy presents with after her daughter was changing her colostomy bag and noticed the contents were very dark. Plan: Suspected GI bleed: Dark contents in colostomy bag potentially representing upper GI bleed Transfuse if hemoglobin less than 7, currently 9.0 Discontinued fluids as patient has a history of heart failure and do not want to cause fluid overload. Will reevaluate in the morning. Continue Protonix 40 mg IV once a day for GI prophylaxis Keep n.p.o. Consult general surgery, follow-up on recommendations Order EKG Hyperlipidemia: Continued home atorvastatin 40 mg p.o. once daily Hypertension: Currently holding home antihypertensive medications as patient's blood pressure is within normal limits, do not want to cause hypotension Chronic: Currently holding home citalopram due to patient already receiving ondansetron, avoiding QT prolongation. Continue to monitor vital signs, monitor CBC, monitor CMP, continue telemetry monitoring Labs and medication were reviewed. Continue with symptomatic treatment. Resume home medication. Monitor labs and vitals. DVT and GI prophylaxis. Further recommendations as per clinical course of the patient Dictation was produced using [employer] dictation software. please excuse any grammatical, word or spelling errors. [employer] confidentiality statement: "The information contained in this communication, including attachments, is confidential, may be privileged, and is intended only for the use of the named recipient(s). Unauthorized use, disclosure, forwarding or copying is strictly prohibited and may be unlawful. If you have received this communication in error, please notify me IMMEDIATELY at the phone number or pager listed above." Dr. Ashlie MD I have performed a history and physical examination and medical decision making of this patient, discussed the same with the the resident, and agree with the assessment and plan as written. I performed brief physical exam. Past Medical History Past Medical History: Atrial Fibrillation, Hyperlipidemia, Hypertension, Myocardial Infarction (ND) Last Myocardial Infarction Date:: 09/07/2023 History of Any Multi-Drug Resistant Organisms: None Reported Past Surgical History: No Surgical Hx Reported, Heart Catheterization With Stent Additional Past Surgical History / Comment(s): Cardiac stents Past Anesthesia/Blood Transfusion Reactions: No Reported Reaction Date of Last Stent Placement:: 09/07/2023 Past Psychological History: No Psychological Hx Reported Smoking Status: Never smoker Past Alcohol Use History: None Reported, Unable to Obtain Past Drug Use History: None Reported Medications and Allergies Home Medications Medication Instructions Recorded Confirmed Type Aspirin EC [Ecotrin Low Dose] 81 mg PO HS 12/02/17 06/15/24 History Atorvastatin [Lipitor] 40 mg PO DAILY #90 tab 09/11/23 06/15/24 Rx Empagliflozin [Jardiance] 10 mg PO DAILY 04/15/24 06/15/24 History Spironolactone 25 mg PO DAILY 04/15/24 06/15/24 History Nitroglycerin Sl Tabs [Nitrostat] 0.4 mg SL Q5M PRN 05/09/24 06/15/24 History Acetaminophen Tab [Tylenol] 500 mg PO Q6HR PRN tab 06/07/24 06/15/24 Rx Citalopram Hydrobromide [CeleXA] 20 mg PO HS tab 06/07/24 06/15/24 Rx Folic Acid 1 mg PO DAILY@1200 tab 06/07/24 06/15/24 Rx Metoprolol Succinate (ER) [Toprol 50 mg PO DAILY tab 06/07/24 06/15/24 Rx XL] Pantoprazole [Protonix] 40 mg PO DAILY #30 tab 06/07/24 06/15/24 Rx polyethylene glycoL 3350 [Miralax] 17 gm PO DAILY packet 06/07/24 06/15/24 Rx Amiodarone [Cordarone] 200 mg PO TID@0600,1400,2100 06/15/24 06/15/24 History Apixaban [Eliquis] 5 mg PO BID@0800,1700 06/15/24 06/15/24 History Benzocaine/Menthol Lozeng [Cepacol 1 lozenge MUCOUS MEM Q1HR PRN 06/15/24 History lozenge] Collagenase [Santyl Ointment] 1 applic TOPICAL DAILY 06/15/24 06/15/24 History Furosemide [Lasix] 40 mg PO DAILY 06/15/24 06/15/24 History Ipratropium-Albuterol Nebulize 3 ml INHALATION RT-TID@06,14,21 06/15/24 06/15/24 History [Duoneb 0.5 mg-3 mg/3 ml Soln] Stanislav Packet 1 packet PO BID@0800,1700 06/15/24 06/15/24 History Lidocaine Cream 5% 1 applic TOPICAL WE 06/15/24 06/15/24 History Magnesium Hydroxide [Milk of 7,200 mg PO Q48H PRN 06/15/24 06/15/24 History Magnesia Concentrate] Metoclopramide [Reglan] 5 mg PO TID@0600,1400,2100 06/15/24 06/15/24 History Multivitamins, Thera [Multivitamin 1 tab PO DAILY@1200 06/15/24 06/15/24 History (formulary)] Na Phos,M-B/Na Phos,Di-Ba [Fleet 133 ml RECTAL DAILY PRN 06/15/24 06/15/24 Histo ry Adult] Ondansetron [Zofran] 4 mg PO Q8HR PRN 06/15/24 06/15/24 History Sennosides-Docusate Sodium 1 tab PO BID PRN 06/15/24 06/15/24 History [Senokot-S] Thiamine [Vitamin B-1] 100 mg PO BID@0800,1700 06/15/24 06/15/24 History bisacodyL [Dulcolax] 10 mg RECTAL DAILY PRN 06/15/24 06/15/24 History lisinopriL [Zestril] 20 mg PO BID@0800,1700 06/15/24 06/15/24 History oxyCODONE-APAP 5-325MG [Percocet 1 tab PO Q6HR PRN 06/15/24 06/15/24 History 5-325 mg] Allergies Allergy/AdvReac Type Severity Reaction Status Date / Time Iodinated Contrast Media Allergy Wheezing/hi Verified 06/15/24 08:18 ves iodine Allergy Wheezing/hi Verified 06/15/24 08:18 ves Physical Exam Vitals: Vital Signs Pulse Resp BP Pulse Ox 06/15/24 06:35 63 16 111/58 95 06/15/24 05:22 64 16 126/53 95 06/15/24 03:23 62 12 110/68 95 06/15/24 01:24 65 16 103/62 95 06/14/24 23:15 63 16 97/63 95 06/14/24 21:34 67 16 96/60 93 L 06/14/24 19:17 77 16 105/78 94 L 06/14/24 19:08 77 94 H 105/74 94 L Intake and Output 06/14/24 06/15/24 06/15/24 22:59 06:59 14:59 Output Total 500 150 Balance -500 -150 Output: Gastric Drainage 150 Stool 500 Other: Weight 52.163 kg Results CBC & Chem 7: 06/16/24 07:59 06/16/24 07:59 Labs: Abnormal Lab Results - Last 24 Hours (Table) 06/14/24 06/14/24 06/14/24 Range/Units 20:20 20:20 22:20 WBC 12.5 H (3.8-10.6) k/uL RBC (3.80-5.40) m/uL Hgb 9.6 L (11.4-16.0) gm/dL Hct 31.9 L (34.0-46.0) % MCHC 30.1 L (31.0-37.0) g/dL RDW 19.2 H (11.5-15.5) % Neutrophils # 10.5 H (1.3-7.7) k/uL PT 14.4 H (10.0-12.5) sec INR 1.4 H (<1.2) APTT 31.2 H (22.0-30.0) sec Sodium 135 L (137-145) mmol/L BUN 31 H (7-17) mg/dL Glucose 111 H (74-99) mg/dL Total Protein 6.0 L (6.3-8.2) g/dL Albumin 2.3 L (3.5-5.0) g/dL Urine Appearance (Clear) Urine Protein (Negative) Urine Glucose (UA) (Negative) Urine Blood (Negative) Urine RBC (0-5) /hpf Urine WBC (0-5) /hpf Uric Acid Crystals (None) /hpf Amorphous Sediment (None) /hpf Urine Yeast (Budding) (None) /hpf 06/14/24 06/15/24 06/15/24 Range/Units 22:21 06:29 06:29 WBC 11.6 H (3.8-10.6) k/uL RBC 3.41 L (3.80-5.40) m/uL Hgb 9.0 L (11.4-16.0) gm/dL Hct 28.8 L (34.0-46.0) % MCHC (31.0-37.0) g/dL RDW 19.3 H (11.5-15.5) % Neutrophils # 9.5 H (1.3-7.7) k/uL PT (10.0-12.5) sec INR (<1.2) APTT (22.0-30.0) sec Sodium (137-145) mmol/L BUN 32 H (7-17) mg/dL Glucose (74-99) mg/dL Total Protein 5.6 L (6.3-8.2) g/dL Albumin 2.1 L (3.5-5.0) g/dL Urine Appearance Cloudy H (Clear) Urine Protein Trace H (Negative) Urine Glucose (UA) 4+ H (Negative) Urine Blood Moderate H (Negative) Urine RBC 8 H (0-5) /hpf Urine WBC 9 H (0-5) /hpf Uric Acid Crystals Occasional H (None) /hpf Amorphous Sediment Rare H (None) /hpf Urine Yeast (Budding) Rare H (None) /hpf
[2024-06-15] MEDS: PANTOPRAZOLE 40 MG/10 ML VIAL IV SCH (10:55)
--- NOTE | 2024-06-15 14:09 | P.GSCN ---
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 She is status post exploratory laparotomy, diverting colostomy and small bowel resection on 05/18/2024 and was recently discharged on 06/07/2024 to [facility]. Patient reports she had been doing well and then yesterday had a large episode of epistaxis in which she was coughing up blood clots. She does report swallowing blood. They had to pack her nose. She is on Eliquis for her A-fib. Eliquis is currently on hold. She is no longer have any nosebleeds. But then she started to note melanotic stools through her colostomy bag. Patient denies any abdominal pain. PAST MEDICAL HISTORY: Atrial Fibrillation, Hyperlipidemia, Hypertension, Myocardial Infarction (IA), perforated diverticulitis PAST SURGICAL HISTORY: Coronary disease with cardiac stent, exploratory laparotomy with diverting colostomy and small bowel resection MEDICATIONS: See below ALLERGIES: See below SOCIAL HISTORY: No illicit drug use. REVIEW OF SYSTEMS: CONSTITUTIONAL: Denies fever or chills. HEENT: Denies blurred vision, vision changes, or eye pain. Denies hemoptysis CARDIOVASCULAR: Denies chest pain or pressure. RESPIRATORY: No shortness of breath. GASTROINTESTINAL: See HPI for pertinent findings HEMATOLOGIC: Denies bleeding disorders. GENITOURINARY: Denies any blood in urine or increased urinary frequency. SKIN: Denies pruitis. Denies rash. PHYSICAL EXAM: VITAL SIGNS: Reviewed GENERAL: Well-developed in no acute distress. HEENT: No sclera icterus. Extraocular movements grossly intact. Moist buccal mucosa. Head is atraumatic, normocephalic. No nasal drainage. ABDOMEN: Soft. Nondistended. Mild tenderness at midline incision. wound vac intact. VAUGHN drain with minimal purulent output NEUROLOGIC: Alert and oriented. Cranial nerves II through XII grossly intact. LABORATORY DATA: WBC 11.6 Hgb 9.6 down to 9.0. Hemoglobin on discharge 9.8. Last hemoglobin on 06/13/2024 was 8.7 Sodium 137 potassium 3.9 creatinine 5 6 IMAGING: CT scan abdomen pelvis nonobstructing renal stones. There is increased density within the gallbladder wall which can be related to contrast excretion or stasis. Small gallstone present. No pericholecystic fluid or wall thickening. Dilation of right kidney. No suspicious abnormality to account for active bleeding. Colostomy site appears normal. ASSESSMENT: 1. Melanotic stools likely due to patient swallowing blood from large episode of epistaxis. Patient is on blood thinners. No evidence of active GI bleed 2. Recent perforated diverticulitis status post exploratory laparotomy with diverting colostomy and small bowel resection on 05/18/2024 PLAN: -No plans for endoscopy at this time. -If no improvement in melanotic stools over the next few days may need to consider EGD. Likely source of melanotic stools is from swallowing blood from the epistaxis episode -Continue to hold Eliquis -Continue to monitor hemoglobin Physician [employer] note has been reviewed by physician. Signing provider agrees with the documented findings, assessment, and plan of care. Past Medical History Past Medical History: Atrial Fibrillation, Hyperlipidemia, Hypertension, Myocardial Infarction (IA) Last Myocardial Infarction Date:: 09/07/2023 History of Any Multi-Drug Resistant Organisms: None Reported Past Surgical History: No Surgical Hx Reported, Heart Catheterization With Stent Additional Past Surgical History / Comment(s): Cardiac stents Past Anesthesia/Blood Transfusion Reactions: No Reported Reaction Date of Last Stent Placement:: 09/07/2023 Past Psychological History: No Psychological Hx Reported Smoking Status: Never smoker Past Alcohol Use History: None Reported, Unable to Obtain Past Drug Use History: None Reported Medications and Allergies Home Medications Medication Instructions Recorded Confirmed Type Aspirin EC [Ecotrin Low Dose] 81 mg PO HS 12/02/17 06/15/24 History Atorvastatin [Lipitor] 40 mg PO DAILY #90 tab 09/11/23 06/15/24 Rx Empagliflozin [Jardiance] 10 mg PO DAILY 04/15/24 06/15/24 History Spironolactone 25 mg PO DAILY 04/15/24 06/15/24 History Nitroglycerin Sl Tabs [Nitrostat] 0.4 mg SL Q5M PRN 05/09/24 06/15/24 History Acetaminophen Tab [Tylenol] 500 mg PO Q6HR PRN tab 06/07/24 06/15/24 Rx Citalopram Hydrobromide [CeleXA] 20 mg PO HS tab 06/07/24 06/15/24 Rx Folic Acid 1 mg PO DAILY@1200 tab 06/07/24 06/15/24 Rx Metoprolol Succinate (ER) [Toprol 50 mg PO DAILY tab 06/07/24 06/15/24 Rx XL] Pantoprazole [Protonix] 40 mg PO DAILY #30 tab 06/07/24 06/15/24 Rx polyethylene glycoL 3350 [Miralax] 17 gm PO DAILY packet 06/07/24 06/15/24 Rx Amiodarone [Cordarone] 200 mg PO TID@0600,1400,2100 06/15/24 06/15/24 History Apixaban [Eliquis] 5 mg PO BID@0800,1700 06/15/24 06/15/24 History Benzocaine/Menthol Lozeng [Cepacol 1 lozenge MUCOUS MEM Q1HR PRN 06/15/24 06/15/24 History lozenge] Collagenase [Santyl Ointment] 1 applic TOPICAL DAILY 06/15/24 06/15/24 History Furosemide [Lasix] 40 mg PO DAILY 06/15/24 06/15/24 History Ipratropium-Albuterol Nebulize 3 ml INHALATION RT-TID@06,14,21 06/15/24 06/15/24 History [Duoneb 0.5 mg-3 mg/3 ml Soln] Stanislav Packet 1 packet PO BID@0800,1700 06/15/24 06/15/24 History Lidocaine Cream 5% 1 applic TOPICAL WE 06/15/24 06/15/24 History Magnesium Hydroxide [Milk of 7,200 mg PO Q48H PRN 06/15/24 06/15/24 History Magnesia Concentrate] Metoclopramide [Reglan] 5 mg PO TID@0600,1400,2100 06/15/24 06/15/24 History Multivitamins, Thera [Multivitamin 1 tab PO DAILY@1200 06/15/24 06/15/24 History (formulary)] Na Phos,M-B/Na Phos,Di-Ba [Fleet 133 ml RECTAL DAILY PRN 06/15/24 06/15/24 History Adult] Ondansetron [Zofran] 4 mg PO Q8HR PRN 06/15/24 06/15/24 History Sennosides-Docusate Sodium 1 tab PO BID PRN 06/15/24 06/15/24 History [Senokot-S] Thiamine [Vitamin B-1] 100 mg PO BID@0800,1700 06/15/24 06/15/24 History bisacodyL [Dulcolax] 10 mg RECTAL DAILY PRN 06/15/24 06/15/24 History lisinopriL [Zestril] 20 mg PO BID@0800,1700 06/15/24 06/15/24 History oxyCODONE-APAP 5-325MG [Percocet 1 tab PO Q6HR PRN 06/15/24 06/15/24 History 5-325 mg] Allergies Allergy/AdvReac Type Severity Reaction Status Date / Time Iodinated Contrast Media Allergy Wheezing/hi Verified 06/15/24 08:18 ves iodine Allergy Wheezing/hi Verified 06/15/24 08:18 ves Surgical - Exam Vital Signs Pulse Resp BP Pulse Ox 77 94 H 105/74 94 L 06/14/24 19:08 06/14/24 19:08 06/14/24 19:08 06/14/24 19:08 Results - Labs 06/15/24 06:29 06/15/24 06:29 Abnormal Lab Results - Last 24 Hours (Table) 06/14/24 06/14/24 06/14/24 Range/Units 20:20 20:20 22:20 WBC 12.5 H (3.8-10.6) k/uL RBC (3.80-5.40) m/uL Hgb 9.6 L (11.4-16.0) gm/dL Hct 31.9 L (34.0-46.0) % MCHC 30.1 L (31.0-37.0) g/dL RDW 19.2 H (11.5-15.5) % Neutrophils # 10.5 H (1.3-7.7) k/uL PT 14.4 H (10.0-12.5) sec INR 1.4 H (<1.2) APTT 31.2 H (22.0-30.0) sec Sodium 135 L (137-145) mmol/L BUN 31 H (7-17) mg/dL Glucose 111 H (74-99) mg/dL Total Protein 6.0 L (6.3-8.2) g/dL Albumin 2.3 L (3.5-5.0) g/dL Urine Appearance (Clear) Urine Protein (Negative) Urine Glucose (UA) (Negative) Urine Blood (Negative) Urine RBC (0-5) /hpf Urine WBC (0-5) /hpf Uric Acid Crystals (None) /hpf Amorphous Sediment (None) /hpf Urine Yeast (Budding) (None) /hpf 06/14/24 06/15/24 06/15/24 Range/Units 22:21 06:29 06:29 WBC 11.6 H (3.8-10.6) k/uL RBC 3.41 L (3.80-5.40) m/uL Hgb 9.0 L (11.4-16.0) gm/dL Hct 28.8 L (34.0-46.0) % MCHC (31.0-37.0) g/dL RDW 19.3 H (11.5-15.5) % Neutrophils # 9.5 H (1.3-7.7) k/uL PT (10.0-12.5) sec INR (<1.2) APTT (22.0-30.0) sec Sodium (137-145) mmol/L BUN 32 H (7-17) mg/dL Glucose (74-99) mg/dL Total Protein 5.6 L (6.3-8.2) g/dL Albumin 2.1 L (3.5-5.0) g/dL Urine Appearance Cloudy H (Clear) Urine Protein Trace H (Negative) Urine Glucose (UA) 4+ H (Negative) Urine Blood Moderate H (Negative) Urine RBC 8 H (0-5) /hpf Urine WBC 9 H (0-5) /hpf Uric Acid Crystals Occasional H (None) /hpf Amorphous Sediment Rare H (None) /hpf Urine Yeast (Budding) Rare H (None) /hpf Diabetes panel 06/14/24 06/15/24 Range/Units 20:20 06:29 Sodium 135 L 137 (137-145) mmol/L Potassium 3.7 3.9 (3.5-5.1) mmol/L Chloride 102 107 (98-107) mmol/L Carbon Dioxide 29 28 (22-30) mmol/L BUN 31 H 32 H (7-17) mg/dL Creatinine 0.55 0.56 (0.52-1.04) mg/dL Glucose 111 H 89 (74-99) mg/dL Calcium 8.6 8.5 (8.4-10.2) mg/dL AST 23 23 (14-36) U/L ALT 12 11 (4-34) U/L Alkaline Phosphatase 95 79 (38-126) U/L Total Protein 6.0 L 5.6 L (6.3-8.2) g/dL Albumin 2.3 L 2.1 L (3.5-5.0) g/dL Calcium panel 06/14/24 06/15/24 Range/Units 20:20 06:29 Calcium 8.6 8.5 (8.4-10.2) mg/dL Phosphorus 3.8 (2.5-4.5) mg/dL Albumin 2.3 L 2.1 L (3.5-5.0) g/dL Pituitary panel 06/14/24 06/15/24 Range/Units 20:20 06:29 Sodium 135 L 137 (137-145) mmol/L Potassium 3.7 3.9 (3.5-5.1) mmol/L Chloride 102 107 (98-107) mmol/L Carbon Dioxide 29 28 (22-30) mmol/L BUN 31 H 32 H (7-17) mg/dL Creatinine 0.55 0.56 (0.52-1.04) mg/dL Glucose 111 H 89 (74-99) mg/dL Calcium 8.6 8.5 (8.4-10.2) mg/dL Adrenal panel 06/14/24 06/15/24 Range/Units 20:20 06:29 Sodium 135 L 137 (137-145) mmol/L Potassium 3.7 3.9 (3.5-5.1) mmol/L Chloride 102 107 (98-107) mmol/L Carbon Dioxide 29 28 (22-30) mmol/L BUN 31 H 32 H (7-17) mg/dL Creatinine 0.55 0.56 (0.52-1.04) mg/dL Glucose 111 H 89 (74-99) mg/dL Calcium 8.6 8.5 (8.4-10.2) mg/dL Total Bilirubin 0.4 0.4 (0.2-1.3) mg/dL AST 23 23 (14-36) U/L ALT 12 11 (4-34) U/L Alkaline Phosphatase 95 79 (38-126) U/L Total Protein 6.0 L 5.6 L (6.3-8.2) g/dL Albumin 2.3 L 2.1 L (3.5-5.0) g/dL
[2024-06-15] MEDS: IPRATROPIUM-ALBUTEROL 3 ML NEB INHALATION SCH (19:30)
[2024-06-16 08:12] LABS: Anisocytosis Slight; HCT 27.9 % (34.0-46.0); HGB 8.2 gm/dL (11.4-16.0); Hypochromasia Marked; MCH 25.2 pg (25.0-35.0); MCHC 29.5 g/dL (31.0-37.0); MCV 85.5 fL (80.0-100.0); Mean Platelet Volume 6.6; Platelet Count 305 k/uL (150-450); RBC 3.26 m/uL (3.80-5.40); RDW 19.2 % (11.5-15.5); WBC 9.5 k/uL (3.8-10.6)
[2024-06-16 08:31] LABS: African American GFR (CKD) >90 (>60 ml/min/1.73 sqM); Anion Gap 2 mmol/L; Blood Urea Nitrogen 21 mg/dL (7-17); Calcium 8.4 mg/dL (8.4-10.2); Carbon Dioxide 26 mmol/L (22-30); Chloride 109 mmol/L (98-107); Glucose 84 mg/dL (74-99); Non-African American GFR(CKD) >90 (>60 ml/min/1.73 sqM); Potassium 3.7 mmol/L (3.5-5.1); Sodium 137 mmol/L (137-145)
--- NOTE | 2024-06-16 09:40 | P.PN ---
Subjective History of present illness; 73-year-old female with past medical history of hypertension, hyperlipidemia, MA, A-fib (on Eliquis) with recent hospital stay for small bowel resection and diverting colostomy presents after her daughter was changing her colostomy bag and noticed the contents were very dark. Patient reports yesterday afternoon her daughter was changing her colostomy bag and noticed a significant amount of black substance within the bag. At this time the daughter felt the patient needed to be seen in the hospital so they called EMS and she came to the ED from [facility]. Patient reports she has been vomiting for the last couple days at home. Patient initially reports that she was vomiting blood, but could not tell if the blood was coming from her vomit or from bleeding from her nose (patient notes the amount of blood is about a tablespoon). Patient reports she bleeds much more easily since she is on Eliquis currently. 06/16/2024: Patient seen at bedside. No significant overnight events. Patient reports her weakness is slightly improved from yesterday. Contents of colostomy still appeared dark but slightly less black than yesterday. Per general surgery, intervention not necessary at this time. They do not recommend endoscopy at this time, but if no improvement in melanotic stools over the next few days they may consider an EGD. REVIEW OF SYSTEMS: CONSTITUTIONAL: No fever, no malaise, no fatigue. HEENT: No recent visual problems or hearing problems. Denied any sore throat. CARDIOVASCULAR: No chest pain, orthopnea, PND, no palpitations, no syncope. PULMONARY: No shortness of breath, no cough, no hemoptysis. GASTROINTESTINAL: No diarrhea, no nausea, no vomiting, no abdominal pain. NEUROLOGICAL: No headaches, no weakness, no numbness. HEMATOLOGICAL: Denies any bleeding or petechiae. GENITOURINARY: Denies any burning micturition, frequency, or urgency. MUSCULOSKELETAL/RHEUMATOLOGICAL: Denies any joint pain, swelling, or any muscle pain. ENDOCRINE: Denies any polyuria or polydipsia. The rest of the 14-point review of systems is negative. PHYSICAL EXAMINATION: GENERAL: The patient is alert and oriented x3, not in any acute distress. Well developed, well nourished. HEENT: Pupils are round and equally reacting to light. EOMI. No scleral icterus. No conjunctival pallor. Normocephalic, atraumatic. No pharyngeal erythema. No thyromegaly. CARDIOVASCULAR: S1 and S2 present. No murmurs, rubs, or gallops. PULMONARY: Chest is clear to auscultation, no wheezing or crackles. ABDOMEN: Soft, nontender, nondistended. No palpable organomegaly. Abdominal drainage tube noted in right mid abdomen, no signs of infection. Colostomy bag located left mid abdomen, black contents within bag, no signs of infection around colostomy site. MUSCULOSKELETAL: No joint swelling or deformity. EXTREMITIES: No cyanosis, clubbing, or pedal edema. NEUROLOGICAL: Gross neurological examination did not reveal any focal deficits. SKIN: No rashes. Assessment: 73-year-old female with a past medical history of hypertension, hyperlipidemia, MA, A-fib with recent hospital stay for small bowel resection and diverting colostomy presents with after her daughter was changing her colostomy bag and noticed the contents were very dark. Patient had episodes of epistaxis before arrival, potential chance she swallowed some of the blood causing the contents of the colostomy bag to appear dark. Plan: #Suspected GI bleed versus swallowing blood from multiple episodes of epistaxis while being on Eliquis: Dark contents in colostomy bag potentially representing upper GI bleed Hemoglobin continues to decrease it was 9 but now is 8.2. Transfuse if hemoglobin less than 7, currently 9.0 Discontinued fluids as patient has a history of heart failure and do not want to cause fluid overload. Will reevaluate in the morning. Continue Protonix 40 mg IV once a day for GI prophylaxis General Surgery at this time does not recommend endoscopy as they think melanotic stools are from patient swallowing blood via epistaxis, recommend if patient is still having melanotic they will plan for EGD on Thursday. Pending EKG #Hyperlipidemia: Continued home atorvastatin 40 mg p.o. once daily #Hypertension: Continuing home antihypertensive medications #HFrEF: Echo from 05/07 showed EF of 40 to 45% Pacemaker in place Holding fluids to prevent excess stress on the heart. #Chronic: Depression: Continue home dose citalopram. GERD: Continue home medication. Continue to monitor vital signs, monitor CBC, monitor CMP, continue telemetry monitoring Labs and medication were reviewed. Continue with symptomatic treatment. Resume home medication. Monitor labs and vitals. DVT and GI prophylaxis. Further recommendations as per clinical course of the patient Dictation was produced using dragon dictation software. please excuse any grammatical, word or spelling errors. [facility] confidentiality statement: "The information contained in this communication, including attachments, is confidential, may be privileged, and is intended only for the use of the named recipient(s). Unauthorized use, disclosure, forwarding or copying is strictly prohibited and may be unlawful. If you have received this communication in error, please notify me IMMEDIATELY at the phone number or pager listed above." Dr. Ashlie MD I have performed a history and physical examination and medical decision making of this patient, discussed the same with the the resident, and agree with the assessment and plan as written. I performed brief physical exam. Objective - Vital Signs Vital signs: Vital Signs Temp 97.8 F 06/16/24 00:00 Pulse 70 06/16/24 00:30 Resp 18 06/16/24 00:30 BP 138/64 06/16/24 00:15 Pulse Ox 96 06/16/24 00:15 FiO2 Intake & Output 06/15/24 06/16/24 06/16/24 18:59 06:59 18:59 Intake Total 240 Output Total 300 Balance -60 Weight 72.5 kg Intake: Oral 240 Output: Drainage 0 Right Abdomen 0 Stool 300 Other: Voiding Method Diaper External Catheter - Labs CBC & Chem 7: 06/17/24 04:53 06/17/24 04:53
--- NOTE | 2024-06-16 10:31 | CDI ---
Documentation Clarification Form Date: 06/16/2024 From: Claudia Belcher RN CCDS Phone: [phone] Admit Date: 06/14/2024 09:57:00 PM Patient Name: Alicia Lemons Visit Number: [id number] Discharge Date: ATTENTION: The Clinical Documentation Specialists (CDI) and [facility] Coding Staff appreciate your assistance in clarifying documentation. Please respond to the clarification below the line at the bottom and electronically sign. The CDI & [facility] Coding staff will review the response and follow-up if needed. Please note: Queries are made part of the Legal Health Record. If you have any questions, please contact the author of this message via ITS. Doctor/Provider: Ronnie Pike MD: There is documentation of epistaxis and coughing up blood in the Surgery consult 06/15. Based on this information and the findings below, is there an additional diagnosis that is clinically appropriate for this patient? History/Risk Factors: 73-year-old female with a history of HTN, A-fib on Eliquis who presents with dark stools in colostomy bag and could not tell if she was vomiting blood or bleeding from her nose Clinical Indicators: 06/15 Surgery consult, Assessment: "1. Melanotic stools likely due to patient swallowing blood from large episode of epistaxis. Patient is on blood thinners. No evidence of active GI bleed." 06/14 PT/PTT/INR: 14.4, 31.2, and 1.4 Treatment: Normal Saline IV 1000cc bolus once 06/14 the 75cc an hour 06/14-06/15 Hold Eliquis Is there an additional diagnosis that is clinically appropriate for this patient? [ x ] Hemorrhage due to Eliquis [ ] Other, please specify [ ] Unable to determine MTDD
[2024-06-16] MEDS ORDERED: BENZOCAINE/MENTHOL LOZENG 1 EACH LOZENGE MUCOUS MEM PRN (11:11)
[2024-06-16] MEDS: FOLIC ACID 1 MG TAB PO SCH (11:56)
[2024-06-16] MEDS: METOPROLOL SUCCINATE (ER) 50 MG TAB.ER.24H PO SCH (11:56)
--- NOTE | 2024-06-16 12:41 | P.PN ---
Subjective Progress Note Date: 06/16/24 CHIEF COMPLAINT: Melanotic stools HISTORY OF PRESENT ILLNESS: Patient continues to have melanotic stools in her ostomy bag. She has had no further nosebleeds. Eliquis remains on hold. Denies any abdominal pain. Afebrile. Vital stable. WBC is down from 11.6-9.5 hemoglobin is down from 9-8.2 albumin 2.1 PHYSICAL EXAM: VITAL SIGNS: Reviewed. GENERAL: no acute distress. ABDOMEN: Soft. Nondistended. Nontender. Ostomy bag with melanotic stools. Wound VAC over midline incision NEUROLOGIC: Alert and oriented. Cranial nerves II through XII grossly intact. ASSESSMENT: 1. Melanotic stools likely due to patient swallowing blood from large episode of epistaxis 2. Recent perforated diverticulitis status post exploratory laparotomy with diverting colostomy and small bowel resection on 05/18/2024 PLAN: -Continue to monitor -Potential EGD Thursday if patient continues to have melanotic stools -Continue to hold Eliquis -Continue to monitor hemoglobin -Continue IV Protonix -Add Ensure for severe protein calorie malnutrition and to promote wound healing -Wound VAC management per wound care service Physician Distance Education Teacher note has been reviewed by physician. Signing provider agrees with the documented findings, assessment, and plan of care. Objective - Vital Signs Vital signs: Vital Signs Temp 98.4 F 06/16/24 11:33 Pulse 74 06/16/24 11:33 Resp 16 06/16/24 11:33 BP 133/73 06/16/24 11:33 Pulse Ox 99 06/16/24 11:33 FiO2 Intake & Output 06/15/24 06/16/24 06/16/24 18:59 06:59 18:59 Intake Total 240 Output Total 300 Balance -60 Weight 72.5 kg Intake: Oral 240 Output: Drainage 0 Right Abdomen 0 Stool 300 Other: Voiding Method Diaper Diaper External Catheter External Catheter - Labs CBC & Chem 7: 06/16/24 07:59 06/16/24 07:59 Labs: Abnormal Lab Results - Last 24 Hours (Table) 06/16/24 06/16/24 Range/Units 07:59 07:59 RBC 3.26 L (3.80-5.40) m/uL Hgb 8.2 L (11.4-16.0) gm/dL Hct 27.9 L (34.0-46.0) % MCHC 29.5 L (31.0-37.0) g/dL RDW 19.2 H (11.5-15.5) % Chloride 109 H (98-107) mmol/L BUN 21 H (7-17) mg/dL Creatinine 0.36 L (0.52-1.04) mg/dL
[2024-06-16] MEDS: THIAMINE 100 MG TAB PO SCH (12:42)
[2024-06-16] MEDS: ATORVASTATIN 40 MG TAB PO SCH (12:43)
[2024-06-16] MEDS: ACETAMINOPHEN TAB 500 MG TAB PO PRN (13:12)
[2024-06-16] MEDS: AMIODARONE 200 MG TAB PO SCH (14:41)
[2024-06-16] MEDS ORDERED: MAGNESIUM HYDROXIDE 2,400 MG/30 ML CUP PO PRN (15:38)
[2024-06-16] MEDS ORDERED: SENNOSIDES-DOCUSATE SODIUM 1 EACH TAB PO PRN (15:38)
[2024-06-16] MEDS: SODIUM CHLORIDE 0.9% 1,000 ML IV SCH (17:22)
[2024-06-16] MEDS: oxyCODONE-APAP 5-325MG 1 EACH TAB PO PRN (17:22)
[2024-06-16] MEDS: CITALOPRAM HYDROBROMIDE 20 MG TAB PO SCH (22:21)
[2024-06-16] MEDS: METOCLOPRAMIDE 5 MG TAB PO SCH (22:22)
[2024-06-17 08:45] LABS: HCT 27.3 % (37.2-46.3); MCH 25.1 pg (27.0-32.0); MCHC 29.3 g/dL (32.0-37.0); MCV 85.6 FL (80.0-97.0); Mean Platelet Volume 9.3 FL (9.5-12.2); NRBC Per 100 WBC 0 X 10*3/uL (0.00-0.01); Platelet Count 290 X 10*3/uL (140-440); RBC 3.19 X 10*6/uL (4.10-5.20); WBC 10.08 X 10*3/uL (4.50-10.00)
[2024-06-17 08:47] LABS: Blood Urea Nitrogen 16.5 mg/dL (9.0-27.0); Calcium 7.9 mg/dL (8.7-10.3); Carbon Dioxide 23.3 mmol/L (21.6-31.8); Chloride 108 mmol/L (96-109); Glucose 98 mg/dL (70-110); Potassium 3.7 mmol/L (3.5-5.5); Sodium 137 mmol/L (135-145)
--- NOTE | 2024-06-17 09:08 | P.PN ---
Subjective History of present illness; 73-year-old female with past medical history of hypertension, hyperlipidemia, MO, A-fib (on Eliquis) with recent hospital stay for small bowel resection and diverting colostomy presents after her daughter was changing her colostomy bag and noticed the contents were very dark. Patient reports yesterday afternoon her daughter was changing her colostomy bag and noticed a significant amount of black substance within the bag. At this time the daughter felt the patient needed to be seen in the hospital so they called EMS and she came to the ED from [facility]. Patient reports she has been vomiting for the last couple days at home. Patient initially reports that she was vomiting blood, but could not tell if the blood was coming from her vomit or from bleeding from her nose (patient notes the amount of blood is about a tablespoon). Patient reports she bleeds much more easily since she is on Eliquis currently. 06/16/2024: Patient seen at bedside. No significant overnight events. Patient reports her weakness is slightly improved from yesterday. Contents of colostomy still appeared dark but slightly less black than yesterday. Per general surgery, intervention not necessary at this time. They do not recommend endoscopy at this time, but if no improvement in melanotic stools over the next few days they may consider an EGD. 06/17/2024: Patient seen at bedside. No significant overnight events. Patient r eports she is having pain in the gluteal region around the area she has a chronic ulcer. Patient reports contents of colostomy bag look closer to what she normally sees at home, more brown and less black. New labs: Hemoglobin decreased from 8.2 now down to 8.0. REVIEW OF SYSTEMS: CONSTITUTIONAL: No fever, no malaise, no fatigue. HEENT: No recent visual problems or hearing problems. Denied any sore throat. CARDIOVASCULAR: No chest pain, orthopnea, PND, no palpitations, no syncope. PULMONARY: No shortness of breath, no cough, no hemoptysis. GASTROINTESTINAL: No diarrhea, no nausea, no vomiting, no abdominal pain. NEUROLOGICAL: No headaches, no weakness, no numbness. HEMATOLOGICAL: Denies any bleeding or petechiae. GENITOURINARY: Denies any burning micturition, frequency, or urgency. MUSCULOSKELETAL/RHEUMATOLOGICAL: Denies any joint pain, swelling, or any muscle pain. ENDOCRINE: Denies any polyuria or polydipsia. The rest of the 14-point review of systems is negative. PHYSICAL EXAMINATION: GENERAL: The patient is alert and oriented x3, not in any acute distress. Well developed, well nourished. HEENT: Pupils are round and equally reacting to light. EOMI. No scleral icterus. No conjunctival pallor. Normocephalic, atraumatic. No pharyngeal erythema. No thyromegaly. CARDIOVASCULAR: S1 and S2 present. No murmurs, rubs, or gallops. PULMONARY: Chest is clear to auscultation, no wheezing or crackles. ABDOMEN: Soft, nontender, nondistended. No palpable organomegaly. Abdominal drainage tube noted in right mid abdomen, no signs of infection. Colostomy bag located left mid abdomen, black contents within bag, no signs of infection around colostomy site. MUSCULOSKELETAL: No joint swelling or deformity. EXTREMITIES: No cyanosis, clubbing, or pedal edema. NEUROLOGICAL: Gross neurological examination did not reveal any focal deficits. SKIN: No rashes. Assessment: 73-year-old female with a past medical history of hypertension, hyperlipidemia, MO, A-fib with recent hospital stay for small bowel resection and diverting colostomy presents with after her daughter was changing her colostomy bag and noticed the contents were very dark. Patient had episodes of epistaxis before arrival, potential chance she swallowed some of the blood causing the contents of the colostomy bag to appear dark. Plan: #Suspected GI bleed versus swallowing blood from multiple episodes of epistaxis while being on Eliquis: Dark contents in colostomy bag potentially representing upper GI bleed Hemoglobin continues to decrease it was 8.2 but is now 8. Transfuse if hemoglobin less than 7 Contents of colostomy bag appear brown close to where patient sees at home, not black as it was on admission. Discontinued fluids as patient has a history of heart failure and do not want to cause fluid overload. Will reevaluate in the morning. Continue Protonix 40 mg IV once a day for GI prophylaxis General Surgery at this time does not recommend endoscopy as they think melanotic stools are from patient swallowing blood via epistaxis, recommend if patient is still having melanotic they will plan for EGD on Thursday. #Hyperlipidemia: Continued home atorvastatin 40 mg p.o. once daily #Hypertension: Continuing home antihypertensive medications #HFrEF: Echo from 05/07 showed EF of 40 to 45% Pacemaker in place Holding fluids to prevent excess stress on the heart. #Chronic: Depression: Continue home dose citalopram. GERD: Continue home medication. Dispo: Pending insurance clearance for home care Continue to monitor vital signs, monitor CBC, monitor CMP, continue telemetry monitoring Labs and medication were reviewed. Continue with symptomatic treatment. Resume home medication. Monitor labs and vitals. DVT and GI prophylaxis. Further recommendations as per clinical course of the patient Dictation was produced using [employer]yr[employer] dictation software. please excuse any grammatical, word or spelling errors. [facility] confidentiality statement: "The information contained in this communication, including attachments, is confidential, may be privileged, and is intended only for the use of the named recipient(s). Unauthorized use, disclosure, forwarding or copying is strictly prohibited and may be unlawful. If you have received this communication in error, please notify me IMMEDIATELY at the phone number or pager listed above." Objective - Vital Signs Vital signs: Vital Signs Temp 98.0 F 06/17/24 02:00 Pulse 64 06/17/24 02:00 Resp 12 06/17/24 02:00 BP 103/62 06/17/24 02:00 Pulse Ox 97 06/17/24 02:00 FiO2 Intake & Output 06/16/24 06/17/24 06/17/24 18:59 06:59 18:59 Intake Total 75 240 Output Total 50 300 Balance 25 -60 Weight 72.5 kg 75 kg Intake: Intake, IV Titration 75 Amount Sodium Chloride 0.9% 1, 75 000 ml @ 75 mls/hr IV . [id number] [facility] Rx#:[id number] Oral 240 Output: Urine 300 Stool 50 Other: Voiding Method Diaper Diaper External Catheter External Catheter # Voids 2 - Labs CBC & Chem 7: 06/17/24 04:53 06/17/24 04:53 Labs: Abnormal Lab Results - Last 24 Hours (Table) 06/16/24 06/16/24 Range/Units 07:59 07:59 RBC 3.26 L (3.80-5.40) m/uL Hgb 8.2 L (11.4-16.0) gm/dL Hct 27.9 L (34.0-46.0) % MCHC 29.5 L (31.0-37.0) g/dL RDW 19.2 H (11.5-15.5) % Chloride 109 H (98-107) mmol/L BUN 21 H (7-17) mg/dL Creatinine 0.36 L (0.52-1.04) mg/dL
[2024-06-17] MEDS: DAPAGLIFLOZIN PROPANEDIOL 5 MG TABLET PO SCH (09:36)
[2024-06-17] MEDS: MULTIVITAMINS, THERA 1 EACH TAB PO SCH (09:37)
[2024-06-17] MEDS: COLLAGENASE 250 UNIT/GM OINTMENT 30 GM TUBE TOPICAL SCH ×2 (09:39→13:08)
--- NOTE | 2024-06-17 11:36 | P.CONS ---
History of Present Illness - Reason for Consult Consult date: 06/17/24 wound care - History of Present Illness This is a 73-year-old patient being seen on [address] for nonhealing ulceration to the abdomen and a stage IV pressure ulcer to the sacrum. Patient had the negative pressure wound VAC initiated at [facility] postsurgery with Dr. Ezra Jimenez. She has been following with Dr. Tobin at [facility]. The abdominal ulceration measures 10 x 8 x 4.5 cm with significant amount of slough and nonviable tissue present sutures are visible. Patient does have granulation throughout the wound bed. Patient has undermining from 9:00 to 1:00 at 3-1/2 cm and from 2:00 to 4:00 at 4 cm. Patient has a unstageable pressure ulcer to the sacrum measuring 5 x 8 x 1 cm approximately. Ulceration shows significant amount of slough and nonviable tissue. No granulation noted. Patient plans to go home for with home care. However daughter states that she is unable to come to the wound care center for debridements. Daughter stated that she was told that home care could manage the wound VAC. Review Of Systems: Constitutional: No fever, no chills, no night sweats. No weight change. No weakness, fatigue or lethargy. No daytime sleepiness. Integumentary:reports wounds, no lesions. No rash or pruritus. No unusual bruising. No change in hair or nails. Physical exam: General Appearance: Alert, cooperative, no distress, appears stated age. Skin: See HPI all other Skin color, texture, tugor normal, no rashes or lesions. Neurologic: Alert oriented x3 Assessment: 1. Nonhealing ulceration other site with muscle involvement without necrosis 2. Unstageable pressure ulcer sacrum Plan 1. Prognosis is guarded. Daughter stated that the patient is unable to come to the wound care center for wound treatment. And management of the wound VAC itself. Concerns related to no follow-up care. 2. Negative pressure wound VAC with black foam at 150 mmHg changing Thursday. 3. Sacral ulceration: Apply Santyl, saline moist gauze, dry gauze, Bordered foam to the site. Turn patient every 2 hours. 4. Patient will need to have follow-ups for weekly debridements to manage both ulcerations. Thank you for the consultation any questions please contact the wound care center DNP note has been reviewed and discussed with Dr. Babcock and the impression and plan of care has been directed as dictated. Past Medical History Past Medical History: Atrial Fibrillation, Hyperlipidemia, Hypertension, Myocardial Infarction ([place]) Last Myocardial Infarction Date:: 09/07/2023 History of Any Multi-Drug Resistant Organisms: None Reported Past Surgical History: No Surgical Hx Reported, Heart Catheterization With Stent Additional Past Surgical History / Comment(s): Cardiac stents Past Anesthesia/Blood Transfusion Reactions: No Reported Reaction Date of Last Stent Placement:: 09/07/2023 Past Psychological History: No Psychological Hx Reported Smoking Status: Never smoker Past Alcohol Use History: None Reported, Unable to Obtain Past Drug Use History: None Reported Medications and Allergies Home Medications Medication Instructions Recorded Confirmed Type Aspirin EC [Ecotrin Low Dose] 81 mg PO HS 12/02/17 06/15/24 History Atorvastatin [Lipitor] 40 mg PO DAILY #90 tab 09/11/23 06/15/24 Rx Empagliflozin [Jardiance] 10 mg PO DAILY 04/15/24 06/15/24 History Spironolactone 25 mg PO DAILY 04/15/24 06/15/24 History Nitroglycerin Sl Tabs [Nitrostat] 0.4 mg SL Q5M PRN 05/09/24 06/15/24 History Acetaminophen Tab [Tylenol] 500 mg PO Q6HR PRN tab 06/07/24 06/15/24 Rx Citalopram Hydrobromide [CeleXA] 20 mg PO HS tab 06/07/24 06/15/24 Rx Folic Acid 1 mg PO DAILY@1200 tab 06/07/24 06/15/24 Rx Metoprolol Succinate (ER) [Toprol 50 mg PO DAILY tab 06/07/24 06/15/24 Rx XL] Pantoprazole [Protonix] 40 mg PO DAILY #30 tab 06/07/24 06/15/24 Rx polyethylene glycoL 3350 [Miralax] 17 gm PO DAILY packet 06/07/24 06/15/24 Rx Amiodarone [Cordarone] 200 mg PO TID@0600,1400,2100 06/15/24 06/15/24 History Apixaban [Eliquis] 5 mg PO BID@0800,1700 06/15/24 06/15/24 History Benzocaine/Menthol Lozeng [Cepacol 1 lozenge MUCOUS MEM Q1HR PRN 06/15/24 06/15/24 History lozenge] Collagenase [Santyl Ointment] 1 applic TOPICAL DAILY 06/15/24 06/15/24 History Furosemide [Lasix] 40 mg PO DAILY 06/15/24 06/15/24 History Ipratropium-Albuterol Nebulize 3 ml INHALATION RT-TID@06,14,21 06/15/24 06/15/24 History [Duoneb 0.5 mg-3 mg/3 ml Soln] Stanislav Packet 1 packet PO BID@0800,1700 06/15/24 06/15/24 History Lidocaine Cream 5% 1 applic TOPICAL WE 06/15/24 06/15/24 History Magnesium Hydroxide [Milk of 7,200 mg PO Q48H PRN 06/15/24 06/15/24 History Magnesia Concentrate] Metoclopramide [Reglan] 5 mg PO TID@0600,1400,2100 06/15/24 06/15/24 History Multivitamins, Thera [Multivitamin 1 tab PO DAILY@1200 06/15/24 06/15/24 History (formulary)] Na Phos,M-B/Na Phos,Di-Ba [Fleet 133 ml RECTAL DAILY PRN 06/15/24 06/15/24 History Adult] Ondansetron [Zofran] 4 mg PO Q8HR PRN 06/15/24 06/15/24 History Sennosides-Docusate Sodium 1 tab PO BID PRN 06/15/24 06/15/24 History [Senokot-S] Thiamine [Vitamin B-1] 100 mg PO BID@0800,1700 06/15/24 06/15/24 History bisacodyL [Dulcolax] 10 mg RECTAL DAILY PRN 06/15/24 06/15/24 History lisinopriL [Zestril] 20 mg PO BID@0800,1700 06/15/24 06/15/24 History oxyCODONE-APAP 5-325MG [Percocet 1 tab PO Q6HR PRN 06/15/24 06/15/24 History 5-325 mg] Allergies Allergy/AdvReac Type Severity Reaction Status Date / Time Iodinated Contrast Media Allergy Wheezing/hi Verified 06/15/24 08:18 ves iodine Allergy Wheezing/hi Verified 06/15/24 08:18 ves Physical Exam Vitals: Vital Signs Temp Pulse Resp BP Pulse Ox 06/17/24 07:47 97.7 F 66 12 128/85 97 06/17/24 02:00 98.0 F 64 12 103/62 97 06/16/24 19:42 98.4 F 61 12 96/51 98 06/16/24 11:33 98.4 F 74 16 133/73 99 Intake and Output 06/16/24 06/17/24 06/17/24 22:59 06:59 14:59 Intake Total 75 240 Output Total 300 Balance 75 -60 Intake: Intake, IV Titration 75 Amount Sodium Chloride 0.9% 1, 75 000 ml @ 75 mls/hr IV . [id number] [facility] Rx#:[id number] Oral 240 Output: Urine 300 Other: Voiding Method Diaper Diaper External Catheter External Catheter # Voids 2 Weight 75 kg Results CBC & Chem 7: 06/17/24 04:53 06/17/24 04:53 Labs: Abnormal Lab Results - Last 24 Hours (Table) 06/17/24 06/17/24 Range/Units 04:53 04:53 WBC 10.08 H (4.50-10.00) X 10*3/uL RBC 3.19 L (4.10-5.20) X 10*6/uL Hgb 8.0 L (12.0-15.0) g/dL Hct 27.3 L (37.2-46.3) % MCH 25.1 L (27.0-32.0) pg MCHC 29.3 L (32.0-37.0) g/dL RDW 21.0 H (11.5-14.5) % MPV 9.3 L (9.5-12.2) FL Creatinine 0.3 L (0.6-1.5) mg/dL BUN/Creatinine Ratio 55.00 H (12.00-20.00) Ratio Calcium 7.9 L (8.7-10.3) mg/dL Assessment and Plan (1) 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
--- NOTE | 2024-06-17 12:13 | P.PN ---
Subjective Progress Note Date: 06/17/24 CHIEF COMPLAINT: Melanotic stools HISTORY OF PRESENT ILLNESS: Patient's stools in her colostomy bag are brown today. She is no longer having any melanotic stools. Denies any abdominal pain. Denies any nausea or vomiting. VAUGHN drain with scant purulent output noted in the bulb. WBC 10 hemoglobin 8.0 PHYSICAL EXAM: VITAL SIGNS: Reviewed. GENERAL: no acute distress. ABDOMEN: Soft. Nondistended. Nontender. Ostomy bag with brown stools. Wound VAC over midline incision NEUROLOGIC: Alert and oriented. Cranial nerves II through XII grossly intact. ASSESSMENT: 1. Melanotic stools likely due to patient swallowing blood from large episode of epistaxis. now resolved 2. Recent perforated diverticulitis status post exploratory laparotomy with diverting colostomy and small bowel resection on 05/18/2024 3. Sacral decubitus ulcer, followed by wound care service PLAN: -Discontinue VAUGHN drain -No plans for endoscopy at this time. Patient no longer having melanotic stools -Continue to monitor hemoglobin -Continue Ensure for severe protein calorie malnutrition and to promote wound healing -Wound VAC management per wound care service Physician Grocery Clerk Checking note has been reviewed by physician. Signing provider agrees with the documented findings, assessment, and plan of care. Objective - Vital Signs Vital signs: Vital Signs Temp 97.7 F 06/17/24 07:47 Pulse 66 06/17/24 07:47 Resp 12 06/17/24 07:47 BP 128/85 06/17/24 07:47 Pulse Ox 97 06/17/24 07:47 FiO2 Intake & Output 06/16/24 06/17/24 06/17/24 18:59 06:59 18:59 Intake Total 75 240 Output Total 50 300 Balance 25 -60 Weight 72.5 kg 75 kg Intake: Intake, IV Titration 75 Amount Sodium Chloride 0.9% 1, 75 000 ml @ 75 mls/hr IV . [id number] [facility] Rx#:[id number] Oral 240 Output: Urine 300 Stool 50 Other: Voiding Method Diaper Diaper Diaper External Catheter External Catheter External Catheter # Voids 2 - Labs CBC & Chem 7: 06/17/24 04:53 06/17/24 04:53 Labs: Abnormal Lab Results - Last 24 Hours (Table) 06/17/24 06/17/24 Range/Units 04:53 04:53 WBC 10.08 H (4.50-10.00) X 10*3/uL RBC 3.19 L (4.10-5.20) X 10*6/uL Hgb 8.0 L (12.0-15.0) g/dL Hct 27.3 L (37.2-46.3) % MCH 25.1 L (27.0-32.0) pg MCHC 29.3 L (32.0-37.0) g/dL RDW 21.0 H (11.5-14.5) % MPV 9.3 L (9.5-12.2) FL Creatinine 0.3 L (0.6-1.5) mg/dL BUN/Creatinine Ratio 55.00 H (12.00-20.00) Ratio Calcium 7.9 L (8.7-10.3) mg/dL
[2024-06-17 14:50] VITALS: BMI 29.2
[2024-06-17 19:58] LABS: Appearance,Urine Cloudy (Clear); Bilirubin,Urine Negative (Negative); Blood,Urine Moderate (Negative); Color,Urine Yellow; Glucose,Urine (UA) 4+ (Negative); Ketones,Urine Negative (Negative); Leukocyte Esterase,Urine Trace (Negative); Nitrite,Urine Negative (Negative); Protein,Urine Trace (Negative); RBC,Urine 31 /hpf (0-5); Specific Gravity,Urine 1.021 (1.001-1.035); Squamous Epithelial Cell,Urine <1 /hpf (0-4); Urobilinogen,Urine <2.0 mg/dL (<2.0); WBC,Urine 10 /hpf (0-5)
[2024-06-17] MEDS: oxyCODONE-APAP 5-325MG 1 EACH TAB PO PRN (20:52)
--- NOTE | 2024-06-18 09:07 | P.PN ---
Subjective Progress Note Date: 06/18/24 Principal diagnosis: GI bleed Patient resting comfortably in bed. Complaining of mild soreness at the wound VAC site and also at her buttock wounds. Tolerating diet. Ostomy stool is brown. Labs pending. Objective - Vital Signs Vital signs: Vital Signs Temp 98.1 F 06/18/24 07:28 Pulse 62 06/18/24 07:28 Resp 16 06/18/24 07:28 BP 138/72 06/18/24 07:28 Pulse Ox 97 06/18/24 07:28 FiO2 Intake & Output 06/17/24 06/18/24 06/18/24 18:59 06:59 18:59 Output Total 350 350 Balance -350 -350 Weight 75 kg 75 kg Output: Urine 350 300 Stool 50 Other: Voiding Method Diaper Diaper External Catheter External Catheter - Exam Abdomen: Soft, nontender, nondistended, large wound with wound VAC in place, ostomy with brown stool - Labs CBC & Chem 7: 06/17/24 04:53 06/17/24 04:53 Labs: Abnormal Lab Results - Last 24 Hours (Table) 06/17/24 Range/Units 19:26 Urine Appearance Cloudy H (Clear) Urine Protein Trace H (Negative) Urine Glucose (UA) 4+ H (Negative) Urine Blood Moderate H (Negative) Ur Leukocyte Esterase Trace H (Negative) Urine RBC 31 H (0-5) /hpf Urine WBC 10 H (0-5) /hpf Assessment and Plan (1) GI bleed Narrative/Plan: Patient doing better at this time. No further evidence of bleeding nasal or otherwise. Continue encouraging optimal nutrition. Offloading as much as possible. Continue wound care. Current Visit: No Status: Acute Code(s): K92.2 - GASTROINTESTINAL HEMORRHAGE, UNSPECIFIED SNOMED Code(s): 72429058
[2024-06-18 10:02] LABS: Blood Urea Nitrogen 11.3 mg/dL (9.0-27.0); Calcium 7.7 mg/dL (8.7-10.3); Carbon Dioxide 22.2 mmol/L (21.6-31.8); Chloride 109 mmol/L (96-109); Glucose 96 mg/dL (70-110); Sodium 137 mmol/L (135-145)
[2024-06-18 10:09] LABS: HCT 26.1 % (37.2-46.3); HGB 7.6 g/dL (12.0-15.0); MCH 25.6 pg (27.0-32.0); MCHC 29.1 g/dL (32.0-37.0); MCV 87.9 FL (80.0-97.0); Mean Platelet Volume 9.7 FL (9.5-12.2); NRBC Per 100 WBC 0 X 10*3/uL (0.00-0.01); Platelet Count 241 X 10*3/uL (140-440); RBC 2.97 X 10*6/uL (4.10-5.20); RDW 21.1 % (11.5-14.5); WBC 9.36 X 10*3/uL (4.50-10.00)
--- NOTE | 2024-06-18 14:47 | P.PN ---
Subjective Subjective: History of present illness; 73-year-old female with past medical history of hypertension, hyperlipidemia, [place], A-fib (on Eliquis) with recent hospital stay for small bowel resection and diverting colostomy presents after her daughter was changing her colostomy bag and noticed the contents were very dark. Patient reports yesterday afternoon her daughter was changing her colostomy bag and noticed a significant amount of black substance within the bag. At this time the daughter felt the patient needed to be seen in the hospital so they called EMS and she came to the ED from [facility]. Patient reports she has been vomiting for the last couple days at home. Patient initially reports that she was vomiting blood, but could not tell if the blood was coming from her vomit or from bleeding from her nose (patient notes the amount of blood is about a tablespoon). Patient reports she bleeds much more easily since she is on Eliquis currently. 06/16/2024: Patient seen at bedside. No significant overnight events. Patient reports her weakness is slightly improved from yesterday. Contents of colostomy still appeared dark but slightly less black than yesterday. Per general surgery, intervention not necessary at this time. They do not recommend endoscopy at this time, but if no improvement in melanotic stools over the next few days they may consider an EGD. 06/17/2024: Patient seen at bedside. No significant overnight events. Patient reports she is having pain in the gluteal region around the area she has a chronic ulcer. Patient reports contents of colostomy bag look closer to what she normally sees at home, more brown and less black. 06/18/2024: Patient seen at bedside. No significant overnight events. Patient r eports pain is better controlled. Pertinent positives and negatives discussed above, a complete review of systems was preformed and all the other sytems were negative. Vitals Signs Reveiwed. GENERAL: The patient is alert and oriented x3, not in any acute distress. Well developed, well nourished. HEENT: Pupils are round and equally reacting to light. EOMI. No scleral icterus. No conjunctival pallor. Normocephalic, atraumatic. No pharyngeal erythema. No thyromegaly. CARDIOVASCULAR: S1 and S2 present. No murmurs, rubs, or gallops. PULMONARY: Chest is clear to auscultation, no wheezing or crackles. ABDOMEN: Soft, nontender, nondistended. No palpable organomegaly. Abdominal drainage tube noted in right mid abdomen, no signs of infection. Colostomy bag located left mid abdomen, black contents within bag, no signs of infection around colostomy site. MUSCULOSKELETAL: No joint swelling or deformity. EXTREMITIES: No cyanosis, clubbing, or pedal edema. NEUROLOGICAL: Gross neurological examination did not reveal any focal deficits. SKIN: No rashes. Data Reveiwed Today: Patient Labs: Hemoglobin continues to decrease now 7.6, UA from yesterday significant for cloudy looking urine with 4+ glucose, moderate urine blood, trace leukocyte esterase, 31 urine RBC (increased from UA on admission which had 8 urine RBC), and 10 urine WBC. Imaging: No new imaging Assesment and Plan:73-year-old female with a past medical history of hypertension, hyperlipidemia, [place], A-fib with recent hospital stay for small bowel resection and diverting colostomy presents with after her daughter was changing her colostomy bag and noticed the contents were very dark. Patient had episodes of epistaxis before arrival, potential chance she swallowed some of the blood causing the contents of the colostomy bag to appear dark. Since admission colostomy bag now contains contents with a brown hue that patient reports is similar to what she sees at home. #Suspected GI bleed versus swallowing blood from multiple episodes of epistaxis while being on Eliquis: Dark contents in colostomy bag potentially representing upper GI bleed Hemoglobin continues to decrease it was 8 but is now 7.6. Transfuse if hemoglobin less than 7 Contents of colostomy bag appear normal to what patient normally sees at home. Discontinued fluids as patient has a history of heart failure and do not want to cause fluid overload. Will reevaluate in the morning. Continue Protonix 40 mg IV once a day for GI prophylaxis General Surgery at this time does not recommend endoscopy as they think melanotic stools are from patient swallowing blood via epistaxis, recommend if patient is still having melanotic they will plan for EGD on Thursday. #Hyperlipidemia: Continued home atorvastatin 40 mg p.o. once daily #Hypertension: Continuing home antihypertensive medications #HFrEF: Echo from 05/07 showed EF of 40 to 45% Pacemaker in place Holding fluids to prevent excess stress on the heart. #Chronic: Depression: Continue home dose citalopram. GERD: Continue home medication. F NS 75 cc/h E thiamine N chopped diet A does not ambulate DVT ppx: Being held as patient came in with potential active bleed Code Status: Full code Dispo: Pending Auth for insurance for home care and transport after being home t o wound care. Anticipated discharge place: To home with home care Anticipated discharge time: Pending clearance from case management for auth. Attestation I have seen and examined this patient with my resident , discussed the same with the resident/FRITZ, and agree with the dictator's assessment and plan as written Dr. Chadwick leal Objective - Vital Signs Vital signs: Vital Signs Temp 98.1 F 06/18/24 07:28 Pulse 62 06/18/24 07:28 Resp 16 06/18/24 07:28 BP 138/72 06/18/24 07:28 Pulse Ox 97 06/18/24 07:28 FiO2 Intake & Output 06/17/24 06/18/24 06/18/24 18:59 06:59 18:59 Output Total 350 350 Balance -350 -350 Weight 75 kg 75 kg Output: Urine 350 300 Stool 50 Other: Voiding Method Diaper Diaper External Catheter External Catheter - Labs CBC & Chem 7: 06/18/24 02:50 06/18/24 02:50 Labs: Abnormal Lab Results - Last 24 Hours (Table) 06/17/24 06/17/24 06/17/24 Range/Units 04:53 04:53 19:26 WBC 10.08 H (4.50-10.00) X 10*3/uL RBC 3.19 L (4.10-5.20) X 10*6/uL Hgb 8.0 L (12.0-15.0) g/dL Hct 27.3 L (37.2-46.3) % MCH 25.1 L (27.0-32.0) pg MCHC 29.3 L (32.0-37.0) g/dL RDW 21.0 H (11.5-14.5) % MPV 9.3 L (9.5-12.2) FL Creatinine 0.3 L (0.6-1.5) mg/dL BUN/Creatinine Ratio 55.00 H (12.00-20.00) Ratio Calcium 7.9 L (8.7-10.3) mg/dL Urine Appearance Cloudy H (Clear) Urine Protein Trace H (Negative) Urine Glucose (UA) 4+ H (Negative) Urine Blood Moderate H (Negative) Ur Leukocyte Esterase Trace H (Negative) Urine RBC 31 H (0-5) /hpf Urine WBC 10 H (0-5) /hpf
[2024-06-19 09:23] LABS: HCT 26.8 % (37.2-46.3); MCH 25.2 pg (27.0-32.0); MCHC 29.9 g/dL (32.0-37.0); MCV 84.3 FL (80.0-97.0); Mean Platelet Volume 9.2 FL (9.5-12.2); NRBC Per 100 WBC 0 X 10*3/uL (0.00-0.01); Platelet Count 267 X 10*3/uL (140-440); RBC 3.18 X 10*6/uL (4.10-5.20); RDW 20.6 % (11.5-14.5); WBC 10.61 X 10*3/uL (4.50-10.00)
--- NOTE | 2024-06-19 10:02 | P.PN ---
Subjective Progress Note Date: 06/19/24 Principal diagnosis: GI bleed Patient without new complaints. Denies abdominal pain. Tolerating diet. Persistent ostomy function present. Still feels very weak. Objective - Vital Signs Vital signs: Vital Signs Temp 98.2 F 06/19/24 07:44 Pulse 69 06/19/24 08:45 Resp 16 06/19/24 08:45 BP 135/75 06/19/24 07:44 Pulse Ox 96 06/19/24 07:44 FiO2 Intake & Output 06/18/24 06/19/24 06/19/24 18:59 06:59 18:59 Intake Total 350 120 Output Total 400 175 50 Balance -50 -55 -50 Weight 75 kg 77 kg Intake: Oral 350 120 Output: Urine 300 150 Stool 100 25 50 Other: Voiding Method Diaper Diaper Diaper External Catheter External Catheter External Catheter # Voids 1 - Exam Abdomen: Soft, nontender, nondistended, large wound with wound VAC in place, ostomy with brown stool - Labs CBC & Chem 7: 06/19/24 06:25 06/18/24 02:50 Labs: Abnormal Lab Results - Last 24 Hours (Table) 06/18/24 06/18/24 06/19/24 Range/Units 02:50 02:50 06:25 WBC 10.61 H (4.50-10.00) X 10*3/uL RBC 2.97 L 3.18 L (4.10-5.20) X 10*6/uL Hgb 7.6 L 8.0 L (12.0-15.0) g/dL Hct 26.1 L 26.8 L (37.2-46.3) % MCH 25.6 L 25.2 L (27.0-32.0) pg MCHC 29.1 L 29.9 L (32.0-37.0) g/dL RDW 21.1 H 20.6 H (11.5-14.5) % MPV 9.2 L (9.5-12.2) FL Creatinine 0.2 L (0.6-1.5) mg/dL BUN/Creatinine Ratio 56.50 H (12.00-20.00) Ratio Calcium 7.7 L (8.7-10.3) mg/dL Assessment and Plan (1) GI bleed Narrative/Plan: Patient doing well at this time. Continue diet as tolerated. Continue physical therapy. Hopefully can get out of bed into the chair. Continue local wound care. Current Visit: Yes Status: Acute Code(s): K92.2 - GASTROINTESTINAL HEMORRHAGE, UNSPECIFIED SNOMED Code(s): 42756089
--- NOTE | 2024-06-19 13:50 | P.PN ---
Subjective Progress Note Date: 06/19/24 Subjective: History of present illness; 73-year-old female with past medical history of hypertension, hyperlipidemia, [place], A-fib (on Eliquis) with recent hospital stay for small bowel resection and diverting colostomy presents after her daughter was changing her colostomy bag and noticed the contents were very dark. Patient reports yesterday afternoon her daughter was changing her colostomy bag and noti hayley a significant amount of black substance within the bag. At this time the daughter felt the patient needed to be seen in the hospital so they called EMS and she came to the ED from [facility]. Patient reports she has been vomiting for the last couple days at home. Patient initially reports that she was vomiting blood, but could not tell if the blood was coming from her vomit or from bleeding from her nose (patient notes the amount of blood is about a tablespoon). Patient reports she bleeds much more easily since she is on Eliquis currently. 06/16/2024: Patient seen at bedside. No significant overnight events. Patient reports her weakness is slightly improved from yesterday. Contents of colostomy still appeared dark but slightly less black than yesterday. Per general surgery, intervention not necessary at this time. They do not recommend endoscopy at this time, but if no improvement in melanotic stools over the next few days they may consider an EGD. 06/17/2024: Patient seen at bedside. No significant overnight events. Patient reports she is having pain in the gluteal region around the area she has a chronic ulcer. Patient reports contents of colostomy bag look closer to what she normally sees at home, more brown and less black. 06/18/2024: Patient seen at bedside. No significant overnight events. Patient reports pain is better controlled. 06/19. Patient seen and examined. Lab work done this morning showed WBC 10.61, hemoglobin 8, platelet count 267. Denies abdominal pain. Pertinent positives and negatives discussed above, a complete review of systems was preformed and all the other sytems were negative. Vitals Signs Reveiwed. GENERAL: The patient is alert and oriented x3, not in any acute distress. Well developed, well nourished. HEENT: Pupils are round and equally reacting to light. EOMI. No scleral icterus. No conjunctival pallor. Normocephalic, atraumatic. No pharyngeal erythema. No thyromegaly. CARDIOVASCULAR: S1 and S2 present. No murmurs, rubs, or gallops. PULMONARY: Chest is clear to auscultation, no wheezing or crackles. ABDOMEN: Soft, nontender, nondistended. No palpable organomegaly. Drain seen, colostomy seen MUSCULOSKELETAL: No joint swelling or deformity. EXTREMITIES: No cyanosis, clubbing, or pedal edema. NEUROLOGICAL: Gross neurological examination did not reveal any focal deficits. SKIN: No rashes. Assesment and Plan:73-year-old female with a past medical history of hypertension, hyperlipidemia, [place], A-fib with recent hospital stay for small bowel resection and diverting colostomy presents with after her daughter was changing her colostomy bag and noticed the contents were very dark. Patient had episodes of epistaxis before arrival, potential chance she swallowed some of the blood causing the contents of the colostomy bag to appear dark. Since admission colostomy bag now contains contents with a brown hue that patient reports is similar to what she sees at home. #Suspected GI bleed versus swallowing blood from multiple episodes of epistaxis while being on Eliquis: Dark contents in colostomy bag potentially representing upper GI bleed Monitor CBC Continue Protonix 40 mg IV once a day for GI prophylaxis General Surgery at this time does not recommend endoscopy as they think melanotic stools are from patient swallowing blood via epistaxis, recommend if patient is still having melanotic they will plan for EGD on Thursday. #Hyperlipidemia: Continued home atorvastatin 40 mg p.o. once daily #Hypertension: Continuing home antihypertensive medications #HFrEF: Echo from 05/07 showed EF of 40 to 45% Pacemaker in place Continue guideline directed med therapy for CHF #Chronic: Depression: Continue home dose citalopram. GERD: Continue home medication. Objective - Vital Signs Vital signs: Vital Signs Temp 98.8 F 06/19/24 13:12 Pulse 71 06/19/24 13:12 Resp 16 06/19/24 13:12 BP 116/70 06/19/24 13:12 Pulse Ox 96 06/19/24 13:12 FiO2 Intake & Output 06/18/24 06/19/24 06/19/24 18:59 06:59 18:59 Intake Total 350 120 Output Total 400 175 50 Balance -50 -55 -50 Weight 75 kg 77 kg Intake: Oral 350 120 Output: Urine 300 150 Stool 100 25 50 Other: Voiding Method Diaper Diaper Diaper External Catheter External Catheter External Catheter # Voids 1 - Labs CBC & Chem 7: 06/19/24 06:25 06/18/24 02:50 Labs: Abnormal Lab Results - Last 24 Hours (Table) 06/19/24 Range/Units 06:25 WBC 10.61 H (4.50-10.00) X 10*3/uL RBC 3.18 L (4.10-5.20) X 10*6/uL Hgb 8.0 L (12.0-15.0) g/dL Hct 26.8 L (37.2-46.3) % MCH 25.2 L (27.0-32.0) pg MCHC 29.9 L (32.0-37.0) g/dL RDW 20.6 H (11.5-14.5) % MPV 9.2 L (9.5-12.2) FL
[2024-06-20 09:30] LABS: Anisocytosis Slight; HCT 28.6 % (34.0-46.0); HGB 8.5 gm/dL (11.4-16.0); Hypochromasia Marked; MCH 25.5 pg (25.0-35.0); MCHC 29.6 g/dL (31.0-37.0); MCV 86.2 fL (80.0-100.0); Mean Platelet Volume 6.6; Platelet Count 330 k/uL (150-450); RBC 3.32 m/uL (3.80-5.40); WBC 9.7 k/uL (3.8-10.6)
--- NOTE | 2024-06-20 12:25 | P.PN ---
Subjective Progress Note Date: 06/20/24 CHIEF COMPLAINT: Melanotic stools HISTORY OF PRESENT ILLNESS: Patient has no new complaints. Stool in the ostomy bag is brown. She continues to have pain in her buttocks. VAUGHN drain was removed on Thursday. Her wound VAC is scheduled to be changed today. Afebrile. WBC 9.7 Hgb 8.5 PHYSICAL EXAM: VITAL SIGNS: Reviewed. GENERAL: no acute distress. ABDOMEN: Soft. Nondistended. Nontender. Ostomy bag with brown stools. Wound VAC over midline incision NEUROLOGIC: Alert and oriented. Cranial nerves II through XII grossly intact. ASSESSMENT: 1. Melanotic stools likely due to patient swallowing blood from large episode of epistaxis. Now resolved 2. Recent perforated diverticulitis status post exploratory laparotomy with diverting colostomy and small bowel resection on 05/18/2024 3. Sacral decubitus ulcer, followed by wound care service PLAN: -Continue wound care to sacral decubitus ulcer -Continue wound VAC to midline incision. -Follow-up with wound care service outpatient -No plans for endoscopy at this time. Patient no longer having melanotic stools -Patient can be discharged from surgical standpoint Physician Chemist Steroids note has been reviewed by physician. Signing provider agrees with the documented findings, assessment, and plan of care. Objective - Vital Signs Vital signs: Vital Signs Temp 98.8 F 06/20/24 08:00 Pulse 72 06/20/24 08:00 Resp 16 06/20/24 08:00 BP 121/66 06/20/24 08:00 Pulse Ox 97 06/20/24 08:00 FiO2 Intake & Output 06/19/24 06/20/24 06/20/24 18:59 06:59 18:59 Intake Total 470 240 Output Total 75 250 Balance 395 -10 Weight 77 kg Intake: Oral 470 240 Output: Urine 250 Stool 75 Other: Voiding Method Diaper Diaper Diaper External Catheter External Catheter External Catheter # Voids 1 - Labs CBC & Chem 7: 06/20/24 09:15 06/18/24 02:50 Labs: Abnormal Lab Results - Last 24 Hours (Table) 06/20/24 Range/Units 09:15 RBC 3.32 L (3.80-5.40) m/uL Hgb 8.5 L (11.4-16.0) gm/dL Hct 28.6 L (34.0-46.0) % MCHC 29.6 L (31.0-37.0) g/dL RDW 19.0 H (11.5-15.5) %
--- NOTE | 2024-06-20 16:07 | P.DS ---
Providers Date of admission: 06/14/24 21:57 Attending physician: Ronnie Pike Consults: 06/14/24 21:55 Consult Physician Routine Consulting Provider: Dario Valles Consult Reason/Comments: known Do you want consulting provider notified?: Yes Primary care physician: Stated None Hospital Course: Discharge Diagnosis: Suspected GI bleed versus swallowing blood from multiple episodes of epistaxis while being on Eliquis Hyperlipidemia Hypertension Chronic back sores HFrEF Depression GERD Hospital Course: 73-year-old female with past medical history of hypertension, hyperlipidemia, AK, A-fib (on Eliquis) with recent hospital stay for small bowel resection and diverting colostomy presents after her daughter was changing her colostomy bag and noticed the contents were very dark. Patient reports yesterday afternoon her daughter was changing her colostomy bag and noticed a significant amount of black substance within the bag. At this time the daughter felt the patient needed to be seen in the hospital so they called EMS and she came to the ED from [facility]. Patient reports she has been vomiting for the last couple days at home. Patient initially reports that she was vomiting blood, but could not tell if the blood was coming from her vomit or from bleeding from her nose (patient notes the amount of blood is about a tablespoon). Patient reports she bleeds much more easily since she is on Eliquis currently. Initial lab work done in the ER showed WBC 12.5 which is decreased to 11.6, hemoglobin 9.6 which decreased to 9.0, PT 14.4, INR 1.4, APTT 31.2, sodium 135 which increased 137, and with everything else within normal limits. Patient also had a UA done which showed a cloudy appearance, trace protein, 4+ glucose, moderate blood, 9 urine WBC, and occasional uric acid crystals. EKG done in the ER showed heart rate of , no ST segment elevation or depression seen, no T-wave inversions seen. CT of the abdomen showed increased density within the gallbladder, small gallstone, no gall bladder wall thickening, dilation of the right kidney, no suspicious abnormality to account for active bleeding into the colostomy bag. Colostomy site appears normal. While admitted patient was seen by general surgery who did not advise for upper endoscopy at this time. Throughout the patient's admission the contents of her colostomy bag transitioned from a dark black hue to a brown/green color representing what the patient normally sees in her own colostomy bag. The patient's hemoglobin decreased at first during admission but slowly continue to decrease after a temporary drop. It would appear based on the patient's hospital course that the black contents of the colostomy bag with a result of the patient swallowing a decent amount of blood from epistaxis while being on Eliquis and not from an active GI bleed. The epistaxis appears to be caused by overtly vigorous swabbing for COVID-19 testing. Patient's Eliquis will be held until she follows up with her primary care after discharge. On day of discharge patient is hemodynamically stable, with a steadily rising hemoglobin, normal appearing contents of colostomy bag, and is medically cleared for discharge to home with home care. Patient has been prescribed short 3-day course of narcotics for pain, advised to follow-up with PCP for further pain management. Patient is advised to follow-up closely with her PCP and senior research fellow. Pt seen and examined at bedside: Patient resting comfortably in bed, contents of colostomy appear normal, and patient wishes to go home. Vital signs reveiwed and stable: GENERAL: The patient is alert and oriented x3, not in any acute distress. Well developed, well nourished. HEENT: Pupils are round and equally reacting to light. EOMI. No scleral icterus. No conjunctival pallor. Normocephalic, atraumatic. No pharyngeal erythema. No thyromegaly. CARDIOVASCULAR: S1 and S2 present. No murmurs, rubs, or gallops. PULMONARY: Chest is clear to auscultation, no wheezing or crackles. ABDOMEN: Soft, nontender, nondistended. No palpable organomegaly. Abdominal drainage tube noted in right mid abdomen, no signs of erythema. Colostomy bag located left mid abdomen, no signs of erythema around colostomy site. MUSCULOSKELETAL: No joint swelling or deformity. EXTREMITIES: No cyanosis, clubbing, or pedal edema. NEUROLOGICAL: Gross neurological examination did not reveal any focal deficits. SKIN: No rashes. A total of [30] minutes were spent preparing this complex discarge summary. Patient was discharged on []. Attestation I have seen and examined this patient with my resident , discussed the same with the resident/FRITZ, and agree with the dictator's assessment and plan as written Dr. Chadwick leal Patient Condition at Discharge: Good Plan - Discharge Summary Discharge Rx Participant: Yes New Discharge Prescriptions: New oxyCODONE-APAP 5-325MG [Percocet 5-325 mg] 1 each PO Q6HR PRN 3 Days #12 tab PRN Reason: Pain Continue Aspirin EC [Ecotrin Low Dose] 81 mg PO HS Atorvastatin [Lipitor] 40 mg PO DAILY #90 tab Nitroglycerin Sl Tabs [Nitrostat] 0.4 mg SL Q5M PRN PRN Reason: Chest Pain Citalopram Hydrobromide [CeleXA] 20 mg PO HS tab Folic Acid 1 mg PO DAILY@1200 tab polyethylene glycoL 3350 [Miralax] 17 gm PO DAILY packet Acetaminophen Tab [Tylenol] 500 mg PO Q6HR PRN tab PRN Reason: Fever And/ Or Pain Sennosides-Docusate Sodium [Senokot-S] 1 tab PO BID PRN PRN Reason: Constipation Collagenase [Santyl Ointment] 1 applic TOPICAL DAILY Na Phos,M-B/Na Phos,Di-Ba [Fleet Adult] 133 ml RECTAL DAILY PRN PRN Reason: Constipation Ipratropium-Albuterol Nebulize [Duoneb 0.5 mg-3 mg/3 ml Soln] 3 ml INHALATION RT-TID@06,14,21 Thiamine [Vitamin B-1] 100 mg PO BID@0800,1700 Amiodarone [Cordarone] 200 mg PO TID@0600,1400,2100 Stanislav Packet 1 packet PO BID@0800,1700 Multivitamins, Thera [Multivitamin (formulary)] 1 tab PO DAILY@1200 Lidocaine Cream 5% 1 applic TOPICAL WE Empagliflozin [Jardiance] 10 mg PO DAILY Pantoprazole [Protonix] 40 mg PO DAILY #30 tab Metoprolol Succinate (ER) [Toprol XL] 50 mg PO DAILY tab Ondansetron [Zofran] 4 mg PO Q8HR PRN PRN Reason: Nausea And Vomiting Magnesium Hydroxide [Milk of Magnesia Concentrate] 7,200 mg PO Q48H PRN PRN Reason: Constipation bisacodyL [Dulcolax] 10 mg RECTAL DAILY PRN PRN Reason: Constipation Benzocaine/Menthol Lozeng [Cepacol lozenge] 1 lozenge MUCOUS MEM Q1HR PRN PRN Reason: Sore Throat Metoclopramide [Reglan] 5 mg PO TID@0600,1400,2100 Discontinued oxyCODONE-APAP 5-325MG [Percocet 5-325 mg] 1 tab PO Q6HR PRN PRN Reason: Pain Apixaban [Eliquis] 5 mg PO BID@0800,1700 Furosemide [Lasix] 40 mg PO DAILY Spironolactone 25 mg PO DAILY lisinopriL [Zestril] 20 mg PO BID@0800,1700 Discharge Medication List Aspirin EC [Ecotrin Low Dose] 81 mg PO HS 12/02/17 [History] Atorvastatin [Lipitor] 40 mg PO DAILY #90 tab 09/11/23 [Rx] Empagliflozin [Jardiance] 10 mg PO DAILY 04/15/24 [History] Nitroglycerin Sl Tabs [Nitrostat] 0.4 mg SL Q5M PRN 05/09/24 [History] Acetaminophen Tab [Tylenol] 500 mg PO Q6HR PRN tab 06/07/24 [Rx] Citalopram Hydrobromide [CeleXA] 20 mg PO HS tab 06/07/24 [Rx] Folic Acid 1 mg PO DAILY@1200 tab 06/07/24 [Rx] Metoprolol Succinate (ER) [Toprol XL] 50 mg PO DAILY tab 06/07/24 [Rx] Pantoprazole [Protonix] 40 mg PO DAILY #30 tab 06/07/24 [Rx] polyethylene glycoL 3350 [Miralax] 17 gm PO DAILY packet 06/07/24 [Rx] Amiodarone [Cordarone] 200 mg PO TID@0600,1400,2100 06/15/24 [History] Benzocaine/Menthol Lozeng [Cepacol lozenge] 1 lozenge MUCOUS MEM Q1HR PRN 06/15/24 [History] Collagenase [Santyl Ointment] 1 applic TOPICAL DAILY 06/15/24 [History] Ipratropium-Albuterol Nebulize [Duoneb 0.5 mg-3 mg/3 ml Soln] 3 ml INHALATION RT-TID@06,14,21 06/15/24 [History] Stanislav Packet 1 packet PO BID@0800,1700 06/15/24 [History] Lidocaine Cream 5% 1 applic TOPICAL WE 06/15/24 [History] Magnesium Hydroxide [Milk of Magnesia Concentrate] 7,200 mg PO Q48H PRN 06/15/24 [History] Metoclopramide [Reglan] 5 mg PO TID@0600,1400,2100 06/15/24 [History] Multivitamins, Thera [Multivitamin (formulary)] 1 tab PO DAILY@1200 06/15/24 [History] Na Phos,M-B/Na Phos,Di-Ba [Fleet Adult] 133 ml RECTAL DAILY PRN 06/15/24 [History] Ondansetron [Zofran] 4 mg PO Q8HR PRN 06/15/24 [History] Sennosides-Docusate Sodium [Senokot-S] 1 tab PO BID PRN 06/15/24 [History] Thiamine [Vitamin B-1] 100 mg PO BID@0800,1700 06/15/24 [History] bisacodyL [Dulcolax] 10 mg RECTAL DAILY PRN 06/15/24 [History] oxyCODONE-APAP 5-325MG [Percocet 5-325 mg] 1 each PO Q6HR PRN 3 Days #12 tab 06/20/24 [Rx] Follow up Appointment(s)/Referral(s): Home Health,[facility] [NON-STAFF] - 1 Week None,Stated [Primary Care Provider] - 1-2 days Dario Valles MD [STAFF PHYSICIAN] - 1 Week Activity/Diet/Wound Care/Special Instructions: Ostomy: [place] 1 piece cut to fit #[id number]; change every 3 to 5 days and if leaking; empty when no more than half full. Discharge Disposition: HOME WITH HOME HEALTH SERVICES
[2024-06-21 07:57] VITALS: BP 123/75; PULSE 73; RESP 16; TEMP 98.5
--- NOTE | 2024-06-21 13:37 | P.PN ---
Subjective Progress Note Date: 06/21/24 CHIEF COMPLAINT: Melanotic stools HISTORY OF PRESENT ILLNESS: Patient has no new complaints. Stool in the ostomy bag is brown. She continues to have pain in her buttocks. Patient is awaiting discharge today. Discharge held yesterday due to them arranging a home physician and home care. PHYSICAL EXAM: VITAL SIGNS: Reviewed. GENERAL: no acute distress. ABDOMEN: Soft. Nondistended. Nontender. Ostomy bag with brown stools. Wound VAC over midline incision NEUROLOGIC: Alert and oriented. Cranial nerves II through XII grossly intact. ASSESSMENT: 1. Melanotic stools likely due to patient swallowing blood from large episode of epistaxis. Now resolved 2. Recent perforated diverticulitis status post exploratory laparotomy with diverting colostomy and small bowel resection on 05/18/2024 3. Sacral decubitus ulcer, followed by wound care service PLAN: -Patient can be discharged from surgical standpoint -Continue wound care to sacral decubitus ulcer -Continue wound VAC to midline incision. -Follow-up with wound care service outpatient -No plans for endoscopy at this time. Patient no longer having melanotic stools Physician Public Speaking Professor note has been reviewed by physician. Signing provider agrees with the documented findings, assessment, and plan of care. Objective - Vital Signs Vital signs: Vital Signs Temp 98.5 F 06/21/24 07:29 Pulse 73 06/21/24 07:29 Resp 16 06/21/24 07:29 BP 123/75 06/21/24 07:29 Pulse Ox 96 06/21/24 07:29 FiO2 Intake & Output 06/20/24 06/21/24 06/21/24 18:59 06:59 18:59 Output Total 300 320 Balance -300 -320 Weight 76.5 kg Output: Urine 300 320 Other: Voiding Method Diaper Diaper Diaper External Catheter External Catheter External Catheter - Labs CBC & Chem 7: 06/20/24 09:15 06/18/24 02:50
[2024-06-22] MEDS ORDERED: LIDOCAINE 4% CREAM 5 GM TUBE TOPICAL SCH (09:00)
== END 2024-06-21 12:42 | disposition home health service (06) | DRG 813 ==
LOC: EC 18:45 → 3SCARD 21:57 → 5NMEDONC 06-15 19:50
PROVIDERS: ADMIT Hospitalist; ATTEND Hospitalist
DX: D68.32 Hemorrhagic disorder due to extrinsic circulating anticoagulants (principal); K92.1 Melena; L98.495 Non-pressure chronic ulcer of skin of other sites with muscle involvement without evidence of necrosis; I50.22 Chronic systolic (congestive) heart failure; K92.0 Hematemesis; L89.150 Pressure ulcer of sacral region, unstageable; I11.0 Hypertensive heart disease with heart failure; F32.A Depression, unspecified; I48.91 Unspecified atrial fibrillation; Z93.3 Colostomy status; R04.0 Epistaxis; T45.515A Adverse effect of anticoagulants, initial encounter; E78.5 Hyperlipidemia, unspecified; K21.9 Gastro-esophageal reflux disease without esophagitis; K80.20 Calculus of gallbladder without cholecystitis without obstruction; Y92.009 Unspecified place in unspecified non-institutional (private) residence as the place of occurrence of the external cause; I25.2 Old myocardial infarction; Z79.84 Long term (current) use of oral hypoglycemic drugs; Z79.01 Long term (current) use of anticoagulants; Z79.899 Other long term (current) drug therapy; Z95.0 Presence of cardiac pacemaker; Z95.5 Presence of coronary angioplasty implant and graft
CPT/HCPCS: 36415; 74176; 80048; 80053; 81001; 82150; 83605; 83690; 83735; 84100; 84484; 85025; 85027; 85610; 85730; 96361; 96374; 96375; 99285

== ENCOUNTER 2024-06-27 17:09 | Inpatient (IN) | payer MEDICARE ==
[2024-06-27] MEDS ORDERED: VANCOMYCIN IV PER PHARMACY 1 EACH MISC MISCELLANE PRN (17:55)
--- NOTE | 2024-06-27 17:59 | ED ---
General Adult HPI - General Chief complaint: Recheck/Abnormal Lab/Rx Stated complaint: MRSA Time Seen by Provider: 06/27/24 17:20 Source: patient, EMS, RN notes reviewed, old records reviewed Mode of arrival: EMS Limitations: no limitations - History of Present Illness Initial comments: Patient is a 73-year-old female present to the emergency department with sacral wound. Patient states this started after she was in the hospital last time. Patient admits she does not get up much. Patient had recent abdominal surgery and does have a wound VAC. Patient reportedly had culture of her sacral wound done positive for MRSA. Patient states that this does cause discomfort. - Related Data Home Medications Medication Instructions Recorded Confirmed Aspirin EC [Ecotrin Low Dose] 81 mg PO HS 12/02/17 06/15/24 Empagliflozin [Jardiance] 10 mg PO DAILY 04/15/24 06/15/24 Nitroglycerin Sl Tabs [Nitrostat] 0.4 mg SL Q5M PRN 05/09/24 06/15/24 Amiodarone [Cordarone] 200 mg PO TID@0600,1400,2100 06/15/24 06/15/24 Benzocaine/Menthol Lozeng [Cepacol 1 lozenge MUCOUS MEM Q1HR PRN 06/15/24 06/15/24 lozenge] Collagenase [Santyl Ointment] 1 applic TOPICAL DAILY 06/15/24 06/15/24 Ipratropium-Albuterol Nebulize 3 ml INHALATION RT-TID@06,14,21 06/15/24 06/15/24 [Duoneb 0.5 mg-3 mg/3 ml Soln] Stanislav Packet 1 packet PO BID@0800,1700 06/15/24 06/15/24 Lidocaine Cream 5% 1 applic TOPICAL WE 06/15/24 06/15/24 Magnesium Hydroxide [Milk of 7,200 mg PO Q48H PRN 06/15/24 06/15/24 Magnesia Concentrate] Metoclopramide [Reglan] 5 mg PO TID@0600,1400,2100 06/15/24 06/15/24 Multivitamins, Thera [Multivitamin 1 tab PO DAILY@1200 06/15/24 06/15/24 (formulary)] Na Phos,M-B/Na Phos,Di-Ba [Fleet 133 ml RECTAL DAILY PRN 06/15/24 06/15/24 Adult] Ondansetron [Zofran] 4 mg PO Q8HR PRN 06/15/24 06/15/24 Sennosides-Docusate Sodium 1 tab PO BID PRN 06/15/24 06/15/24 [Senokot-S] Thiamine [Vitamin B-1] 100 mg PO BID@0800,1700 06/15/24 06/15/24 bisacodyL [Dulcolax] 10 mg RECTAL DAILY PRN 06/15/24 06/15/24 Previous Rx's Medication Instructions Recorded Atorvastatin [Lipitor] 40 mg PO DAILY #90 tab 09/11/23 Acetaminophen Tab [Tylenol] 500 mg PO Q6HR PRN tab 06/07/24 Citalopram Hydrobromide [CeleXA] 20 mg PO HS tab 06/07/24 Folic Acid 1 mg PO DAILY@1200 tab 06/07/24 Metoprolol Succinate (ER) [Toprol 50 mg PO DAILY tab 06/07/24 XL] Pantoprazole [Protonix] 40 mg PO DAILY #30 tab 06/07/24 polyethylene glycoL 3350 [Miralax] 17 gm PO DAILY packet 06/07/24 oxyCODONE-APAP 5-325MG [Percocet 1 each PO Q6HR PRN 3 Days #12 tab 06/20/24 5-325 mg] Allergies Allergy/AdvReac Type Severity Reaction Status Date / Time Iodinated Contrast Media Allergy Wheezing/hi Verified 06/27/24 17:19 ves iodine Allergy Wheezing/hi Verified 06/27/24 17:19 ves Review of Systems ROS Statement: Those systems with pertinent positive or pertinent negative responses have been documented in the HPI. ROS Other: All systems not noted in ROS Statement are negative. Constitutional: Denies: fever Eyes: Denies: eye pain ENT: Denies: ear pain Genitourinary: Denies: dysuria Skin: Reports: as per HPI Past Medical History Past Medical History: Atrial Fibrillation, Hyperlipidemia, Hypertension, Myocardial Infarction (AR) Additional Past Medical History / Comment(s): stage 4 pressure ulcer on buttocks Last Myocardial Infarction Date:: 09/07/2023 History of Any Multi-Drug Resistant Organisms: MRSA Date of last positivie culture/infection: 06/27/24 MDRO Source:: coccyx Past Surgical History: Heart Catheterization With Stent Additional Past Surgical History / Comment(s): Cardiac stents, perferated bowel with ostomy Past Anesthesia/Blood Transfusion Reactions: No Reported Reaction Date of Last Stent Placement:: 09/07/2023 Past Psychological History: No Psychological Hx Reported Smoking Status: Never smoker Past Alcohol Use History: None Reported Past Drug Use History: None Reported General Exam Limitations: no limitations General appearance: alert, in no apparent distress Head exam: Present: normocephalic Eye exam: Present: normal appearance Neck exam: Present: normal inspection. Absent: meningismus Respiratory exam: Present: normal lung sounds bilaterally Cardiovascular Exam: Present: regular rate, normal rhythm GI/Abdominal exam: Present: soft, tenderness (Patient does have mild tenderness in area of wound VAC right lower abdomen) Extremities exam: Present: normal inspection Back exam: Present: other (Moderate sized sacral wound stage III/IV with foul odor and some purulent drainage. Approximate size is 8 x 12 cm) Neurological exam: Present: alert Psychiatric exam: Present: normal affect, normal mood Skin exam: Present: other (Above) Course Vital Signs 06/27/24 17:11 Temperature 99.3 F Pulse Rate 55 L Respiratory 18 Rate Blood Pressure 108/90 O2 Sat by Pulse 96 Oximetry Medical Decision Making - Medical Decision Making Was pt. sent in by a medical professional or institution ([facility]AL[facility] Magaña, RE[employer]TER, urgent care, hospital, or shelter...) When possible be specific @ -Patient was sent in by shelter Did you speak to anyone other than the patient for history (EMS, parent, family, police, friend...)? What history was obtained from this source @ - Did you review nursing and triage notes (agree or disagree)? Why? @ -I reviewed and agree with nursing and triage notes Were old charts reviewed (outside hosp., previous admission, EMS record, old EKG , old radiological studies, urgent care reports/EKG's, shelter records)? Report findings @ -No old charts were reviewed Differential Diagnosis (chest pain, altered mental status, abdominal pain women, abdominal pain men, vaginal bleeding, weakness, fever, dyspnea, syncope, headache, dizziness, GI bleed, back pain, seizure, CVA, palpatations, mental health, musculoskeletal)? @ -Differential Fever: Pneumonia, viral URI, endocarditis, myocarditis, pericarditis, otitis, sinusitis, peritonsillar Abscess, retropharyngeal Abscess, epiglottitis, peritonitis, appendicitis, Elva cystitis, diverticulitis, hepatitis, colitis, UTI, PID, TOA, pyelonephritis, prostatitis, epididymitis, meningitis, encephalitis, pulmonary embolism, CVA, thyroid storm, pancreatitis, adrenal crisis, cavernous sinus thrombosis, this is not meant to be an all-inclusive list. EKG interpreted by me (3pts min.). @ -As above X-rays interpreted by me (1pt min.). @ -Pelvis x-ray shows nonspecific findings. Radiologist interpretation is pending CT interpreted by me (1pt min.). @ -None done U/S interpreted by me (1pt. min.). @ -None done What testing was considered but not performed or refused? (CT, X-rays, U/S, labs)? Why? @ -None What meds were considered but not given or refused? Why? @ -None Did you discuss the management of the patient with other professionals (professionals i.e. , PA, REVENUE STAMP CUTTER, lab, RT, psych nurse, social media job titles, recruiting operations consultant, teacher, chief fundraising officer, case repairer)? Give summary @ - Case discussed with practitioner Anastasia Baptiste who will admit covering with Dr. Pike, who covers for . Was smoking cessation discussed for >3mins.? @ -No Was critical care preformed (if so, how long)? @ -No Were there social determinants of health that impacted care today? How? (Homelessness, low income, unemployed, alcoholism, drug addiction, transportation, low edu. Level, literacy, decrease access to med. care, correction, rehab)? @ -No Was there de-escalation of care discussed even if they declined (Discuss DNR or withdrawal of care, Hospice)? DNR status @ -No What co-morbidities impacted this encounter? (DM, HTN, Smoking, COPD, CAD, Cancer, CVA, ARF, Chemo, Hep., AIDS, mental health diagnosis, sleep apnea, morbid obesity)? @ -History of recent outpatient testing positive for MRSA Was patient admitted / discharged? Hospital course, mention meds given and route, prescriptions, significant lab abnormalities, going to OR and other pertinent info. @ -Hospital course Undiagnosed new problem with uncertain prognosis? @ -No Drug Therapy requiring intensive monitoring for toxicity (Heparin, Nitro, Insulin, Cardizem)? @ -No Were any procedures done? @ -No Diagnosis/symptom? @ -Sacral ulcer Acute, or Chronic, or Acute on Chronic? @ -Acute Uncomplicated (without systemic symptoms) or Complicated (systemic symptoms)? @ -Default Side effects of treatment? @ -No Exacerbation, Progression, or Severe Exacerbation? @ -No Poses a threat to life or bodily function? How? (Chest pain, USA, AR, pneumonia, PE, COPD, DKA, ARF, appy, cholecystitis, CVA, Diverticulitis, Homicidal, Suici tobi, threat to staff... and all critical care pts) @ -No - Lab Data Result diagrams: 06/27/24 18:50 06/27/24 18:50 Lab Results 06/27/24 06/27/24 06/27/24 Range/Units 18:50 18:50 18:50 WBC 12.8 H (3.8-10.6) k/uL RBC 3.68 L (3.80-5.40) m/uL Hgb 9.3 L (11.4-16.0) gm/dL Hct 29.6 L (34.0-46.0) % MCV 80.4 D (80.0-100.0) fL MCH 25.2 (25.0-35.0) pg MCHC 31.3 (31.0-37.0) g/dL RDW 18.1 H (11.5-15.5) % Plt Count 455 H (150-450) k/uL MPV 7.2 Neutrophils % 88 % Lymphocytes % 5 % Monocytes % 6 % Eosinophils % 0 % Basophils % 0 % Neutrophils # 11.3 H (1.3-7.7) k/uL Lymphocytes # 0.7 L (1.0-4.8) k/uL Monocytes # 0.7 (0-1.0) k/uL Eosinophils # 0.0 (0-0.7) k/uL Basophils # 0.0 (0-0.2) k/uL Hypochromasia Moderate Anisocytosis Slight Microcytosis Slight PT 13.1 H (10.0-12.5) sec INR 1.2 H (<1.2) APTT 24.8 (22.0-30.0) sec Sodium 136 L (137-145) mmol/L Potassium 3.6 (3.5-5.1) mmol/L Chloride 106 (98-107) mmol/L Carbon Dioxide 21 L (22-30) mmol/L Anion Gap 9 mmol/L BUN 18 H (7-17) mg/dL Creatinine 0.39 L (0.52-1.04) mg/dL Est GFR (CKD-EPI)AfAm >90 (>60 ml/min/1.73 sqM) Est GFR (CKD-EPI)NonAf >90 (>60 ml/min/1.73 sqM) Glucose 59 L (74-99) mg/dL Plasma Lactic Acid David (0.7-2.0) mmol/L Calcium 8.4 (8.4-10.2) mg/dL Total Bilirubin 0.5 (0.2-1.3) mg/dL AST 31 (14-36) U/L ALT 13 (4-34) U/L Alkaline Phosphatase 105 (38-126) U/L Total Protein 6.0 L (6.3-8.2) g/dL Albumin 2.1 L (3.5-5.0) g/dL 06/27/24 Range/Units 18:50 WBC (3.8-10.6) k/uL RBC (3.80-5.40) m/uL Hgb (11.4-16.0) gm/dL Hct (34.0-46.0) % MCV (80.0-100.0) fL MCH (25.0-35.0) pg MCHC (31.0-37.0) g/dL RDW (11.5-15.5) % Plt Count (150-450) k/uL MPV Neutrophils % % Lymphocytes % % Monocytes % % Eosinophils % % Basophils % % Neutrophils # (1.3-7.7) k/uL Lymphocytes # (1.0-4.8) k/uL Monocytes # (0-1.0) k/uL Eosinophils # (0-0.7) k/uL Basophils # (0-0.2) k/uL Hypochromasia Anisocytosis Microcytosis PT (10.0-12.5) sec INR (<1.2) APTT (22.0-30.0) sec Sodium (137-145) mmol/L Potassium (3.5-5.1) mmol/L Chloride (98-107) mmol/L Carbon Dioxide (22-30) mmol/L Anion Gap mmol/L BUN (7-17) mg/dL Creatinine (0.52-1.04) mg/dL Est GFR (CKD-EPI)AfAm (>60 ml/min/1.73 sqM) Est GFR (CKD-EPI)NonAf (>60 ml/min/1.73 sqM) Glucose (74-99) mg/dL Plasma Lactic Acid David 1.2 (0.7-2.0) mmol/L Calcium (8.4-10.2) mg/dL Total Bilirubin (0.2-1.3) mg/dL AST (14-36) U/L ALT (4-34) U/L Alkaline Phosphatase (38-126) U/L Total Protein (6.3-8.2) g/dL Albumin (3.5-5.0) g/dL Disposition Clinical Impression: Sacral ulcer Disposition: ADMITTED IP TO THIS HOSP Is patient prescribed a controlled substance at d/c from ED?: No Time of Disposition: 19:52
[2024-06-27] MEDS ORDERED: MORPHINE SULFATE 4 MG/ML SYRINGE IV PRN (19:11)
[2024-06-27] MEDS ORDERED: ACETAMINOPHEN TAB 325 MG TAB PO PRN (19:11)
[2024-06-27] MEDS ORDERED: NALOXONE 0.4 MG/ML 1 ML VIAL IV PRN (19:11)
[2024-06-27 19:13] LABS: ALT 13 U/L (4-34); AST 31 U/L (14-36); African American GFR (CKD) >90 (>60 ml/min/1.73 sqM); Albumin 2.1 g/dL (3.5-5.0); Alkaline Phosphatase 105 U/L (38-126); Anion Gap 9 mmol/L; Blood Urea Nitrogen 18 mg/dL (7-17); Calcium 8.4 mg/dL (8.4-10.2); Carbon Dioxide 21 mmol/L (22-30); Chloride 106 mmol/L (98-107); Glucose 59 mg/dL (74-99); Non-African American GFR(CKD) >90 (>60 ml/min/1.73 sqM); Potassium 3.6 mmol/L (3.5-5.1); Sodium 136 mmol/L (137-145); Total Bilirubin 0.5 mg/dL (0.2-1.3)
[2024-06-27 19:16] LABS: INR 1.2 (<1.2); Partial Thromboplastin Time 24.8 sec (22.0-30.0); Prothrombin Time 13.1 sec (10.0-12.5)
[2024-06-27 19:20] LABS: Anisocytosis Slight; Basophils % (A) 0 %; Eosinophils % (A) 0 %; HCT 29.6 % (34.0-46.0); HGB 9.3 gm/dL (11.4-16.0); Hypochromasia Moderate; Lymphocytes # (A) 0.7 k/uL (1.0-4.8); Lymphocytes % (A) 5 %; MCH 25.2 pg (25.0-35.0); MCHC 31.3 g/dL (31.0-37.0); MCV 80.4 fL (80.0-100.0); Mean Platelet Volume 7.2; Microcytosis Slight; Monocytes # (A) 0.7 k/uL (0-1.0); Monocytes % (A) 6 %; Neutrophils # (A) 11.3 k/uL (1.3-7.7); Neutrophils % (A) 88 %; Platelet Count 455 k/uL (150-450); RBC 3.68 m/uL (3.80-5.40); RDW 18.1 % (11.5-15.5); WBC 12.8 k/uL (3.8-10.6)
[2024-06-27] MEDS: VANCOMYCIN 1,250 MG in SODIUM CHLORIDE 0.9% 250 ML IVPB ONE (19:28)
[2024-06-27] MEDS: SODIUM CHLORIDE 0.9% 1,000 ML IV SCH (19:32)
[2024-06-27] MEDS: FAMOTIDINE 20 MG TAB PO SCH (20:13)
[2024-06-27] MEDS: traMADol 50 MG TAB PO PRN (23:45)
--- NOTE | 2024-06-28 05:44 | XR ---
EXAMINATION TYPE: XR pelvis AP view DATE OF EXAM: 06/27/2024 7:00 PM CLINICAL INDICATION:Female, 73 years old with history of ulcer; [facility] COMPARISON: None TECHNIQUE: The pelvis was examined in a single projection. FINDINGS: Plain film examination provides limited sensitivity. There is no evidence of osseous destructive bravo ge, fracture, or dislocation. Moderate diffuse degenerative changes. Gas and stool in the bowel parti ally limits visualization of portions of the pelvis. IMPRESSION: No acute radiographic abnormality demonstrated on this single view pelvis. [facility], , 06/28/2024 5:42 AM
[2024-06-28 06:46] LABS: Glucose,Whole Blood 62 mg/dL (70-110)
[2024-06-28] MEDS: VANCOMYCIN 1,250 MG in SODIUM CHLORIDE 0.9% 250 ML IVPB SCH (07:57)
[2024-06-28] MEDS ORDERED: NITROGLYCERIN SL TABS 0.4 MG TAB SUBLINGUAL PRN (09:13)
[2024-06-28 09:24] LABS: ALT 12 U/L (8-44); AST 24 U/L (13-35); Albumin 1.9 g/dL (3.8-4.9); Albumin/Globulin Ratio 0.53 Ratio (1.60-3.17); Alkaline Phosphatase 94 U/L (41-126); BUN/Creat Ratio 42.75 Ratio (12.00-20.00); Blood Urea Nitrogen 17.1 mg/dL (9.0-27.0); Calcium 7.9 mg/dL (8.7-10.3); Carbon Dioxide 20.5 mmol/L (21.6-31.8); Chloride 103 mmol/L (96-109); Globulin 3.6 g/dL (1.6-3.3); Glucose 55 mg/dL (70-110); Potassium 3.6 mmol/L (3.5-5.5); Sodium 135 mmol/L (135-145); Total Bilirubin 0.3 mg/dL (0.3-1.2); Total Protein 5.5 g/dL (6.2-8.2)
[2024-06-28 09:28] LABS: Basophils # (A) 0.03 X 10*3/uL (0.00-0.10); Basophils % (A) 0.2 %; Eosinophils # (A) 0.01 X 10*3/uL (0.04-0.35); Eosinophils % (A) 0.1 %; HCT 27.5 % (37.2-46.3); HGB 8.2 g/dL (12.0-15.0); Lymphocytes # (A) 1.11 X 10*3/uL (0.90-5.00); Lymphocytes % (A) 8.5 %; MCH 24.9 pg (27.0-32.0); MCHC 29.8 g/dL (32.0-37.0); MCV 83.6 FL (80.0-97.0); Monocytes # (A) 1.19 X 10*3/uL (0.20-1.00); Monocytes % (A) 9.1 %; NRBC Per 100 WBC 0 X 10*3/uL (0.00-0.01); Neutrophils # (A) 10.63 X 10*3/uL (1.80-7.70); Neutrophils % (A) 81.5 %; Platelet Count 346 X 10*3/uL (140-440); RBC 3.29 X 10*6/uL (4.10-5.20); RDW 19.5 % (11.5-14.5); WBC 13.05 X 10*3/uL (4.50-10.00)
--- NOTE | 2024-06-28 09:43 | P.HPIM ---
History of Present Illness This is a pleasant 73 years old female with past medical history of multiple medical problems including atrial fibrillation, hypertension, hyperlipidemia. She was recently discharged from the hospital on 06/21 about a week ago for brown spected GI bleed versus swallowing multiple episodes of epistaxis while being on Eliquis.. Patient was recently treated for perforated diverticulitis status post exploratory laparotomy with diverting colostomy with small bowel resection on 05/18/2024. Also she had sacral pressure ulcers with wound VAC. She went to care home. She presents this time because of her sacral pressure ulcers as wound culture showing MRSA per records, her niece who has medical background states that her culture was positive for 6 microorganisms. Patient currently is on IV vancomycin and wound VAC still in place pictures of the wounds are reviewed with the family and the daughter at bedside. Patient complains from back pain about 8/10, increased with movement but it is chronic as well At baseline she was able to walk little bit with a walker before she got her surgery for perforated ulcers and since then she was not able to walk. At baseline she could walk only for short distance as per daughter. Currently she is bedridden She denies chest pain or dyspnea. No abdominal pain vomiting or diarrhea. Her colostomy bag in place with brown stool. No headache dizziness weakness or numbness. No smoking or illicit drugs. She is hemodynamically stable. Labs reviewed showing mild leukocytosis of 12.3, hemoglobin 9.3, platelet count 452. BMP and liver enzymes were unremarkable, INR is unremarkable. C. difficile test was negative. As per family currently she is taking aspirin and Plavix while Eliquis remains on hold. Last time on discharge Eliquis was held with recommendation patient follow-up with her primary care doctor to resume it. She was discharged on aspirin 81 mg only. While currently she is taking aspirin and Plavix Review of Systems Review of systems CONSTITUTIONAL: No fever, no malaise, no fatigue. HEENT: No recent visual problems or hearing problems. Denied any sore throat. CARDIOVASCULAR: No orthopnea, PND, no palpitations, no syncope. PULMONARY: No shortness of breath, no cough, no hemoptysis. GASTROINTESTINAL: No diarrhea, no nausea, no vomiting, no abdominal pain. Normoactive bowel sounds. NEUROLOGICAL: No headaches, no weakness, no numbness. HEMATOLOGICAL: Denies any bleeding or petechiae. GENITOURINARY: Denies any burning micturition, frequency, or urgency. -MUSCULOSKELETAL/RHEUMATOLOGICAL: Denies any joint pain, swelling, or any muscle pain. Except as mentioned above including back pain ENDOCRINE: Denies any polyuria or polydipsia. Past Medical History Past Medical History: Atrial Fibrillation, Hyperlipidemia, Hypertension, Myocardial Infarction ([place]) Additional Past Medical History / Comment(s): stage 4 pressure ulcer on buttocks Last Myocardial Infarction Date:: 09/07/2023 History of Any Multi-Drug Resistant Organisms: MRSA Date of last positivie culture/infection: 06/27/24 MDRO Source:: coccyx Past Surgical History: Heart Catheterization With Stent Additional Past Surgical History / Comment(s): Cardiac stents, perferated bowel with ostomy Past Anesthesia/Blood Transfusion Reactions: No Reported Reaction Date of Last Stent Placement:: 09/07/2023 Past Psychological History: No Psychological Hx Reported Smoking Status: Never smoker Past Alcohol Use History: None Reported Past Drug Use History: None Reported Medications and Allergies Home Medications Medication Instructions Recorded Confirmed Type Aspirin EC [Ecotrin Low Dose] 81 mg PO DAILY 12/02/17 06/27/24 History Atorvastatin [Lipitor] 40 mg PO DAILY #90 tab 09/11/23 06/27/24 Rx Empagliflozin [Jardiance] 10 mg PO DAILY 04/15/24 06/27/24 History Nitroglycerin Sl Tabs [Nitrostat] 0.4 mg SL Q5M PRN 05/09/24 06/27/24 History Collagenase [Santyl Ointment] 1 applic TOPICAL DAILY 06/15/24 06/27/24 History Clopidogrel [Plavix] 75 mg PO DAILY 06/27/24 06/27/24 History Levofloxacin [Levaquin] 500 mg PO DAILY 06/27/24 06/27/24 History Metoprolol Succinate [Metoprolol 25 mg PO BID 06/27/24 06/27/24 History Succinate ER] Prochlorperazine [Compazine] 10 mg PO Q6H PRN 06/27/24 06/27/24 History Spironolactone [Aldactone] 25 mg PO DAILY 06/27/24 06/27/24 History lisinopriL [Zestril] 20 mg PO BID 06/27/24 06/27/24 History oxyCODONE-APAP 5-325MG [Percocet 1 tab PO Q6HR PRN 06/27/24 06/27/24 History 5-325 mg] Allergies Allergy/AdvReac Type Severity Reaction Status Date / Time Iodinated Contrast Media Allergy Wheezing/hi Verified 06/27/24 20:23 ves iodine Allergy Wheezing/hi Verified 06/27/24 20:23 ves Physical Exam Vitals: Vital Signs Temp Pulse Pulse Pulse Resp BP BP 06/28/24 07:29 98.1 F 61 16 119/87 06/27/24 22:50 56 L 17 110/74 06/27/24 22:49 98.4 F 59 L 17 125/82 06/27/24 22:21 54 L 18 116/55 06/27/24 20:15 58 L 16 89/55 06/27/24 17:11 99.3 F 55 L 18 108/90 Pulse Ox 06/28/24 07:29 96 06/27/24 22:50 95 06/27/24 22:49 96 06/27/24 22:21 95 06/27/24 20:15 97 06/27/24 17:11 96 Intake and Output 06/27/24 06/28/24 06/28/24 22:59 06:59 14:59 Other: Voiding Method External Catheter Weight 68.039 kg GENERAL: The patient is alert and oriented x3, not in any acute distress. Well developed, well nourished. HEENT: Pupils are round and equally reacting to light. EOMI. No scleral icterus. No conjunctival pallor. Normocephalic, atraumatic. No pharyngeal erythema. No thyromegaly. CARDIOVASCULAR: S1 and S2 present. No murmurs, rubs, or gallops. PULMONARY: Chest is clear to auscultation, no wheezing , no crackles. ABDOMEN: Soft, nontender, nondistended, normoactive bowel sounds. No palpable organomegaly. -MUSCULOSKELETAL: No joint swelling or deformity. Sacral pressure ulcer, stage IV, there is another ulcer on the buttocks area EXTREMITIES: No cyanosis, clubbing, or pedal edema. NEUROLOGICAL: Gross neurological examination did not reveal any focal deficits. SKIN: No rashes. no petechiae. Results CBC & Chem 7: 06/28/24 02:40 06/28/24 02:40 Labs: Abnormal Lab Results - Last 24 Hours (Table) 06/27/24 06/27/24 06/27/24 Range/Units 18:50 18:50 18:50 WBC 12.8 H (3.8-10.6) k/uL RBC 3.68 L (3.80-5.40) m/uL Hgb 9.3 L (11.4-16.0) gm/dL Hct 29.6 L (34.0-46.0) % RDW 18.1 H (11.5-15.5) % Plt Count 455 H (150-450) k/uL Neutrophils # 11.3 H (1.3-7.7) k/uL Lymphocytes # 0.7 L (1.0-4.8) k/uL PT 13.1 H (10.0-12.5) sec INR 1.2 H (<1.2) Sodium 136 L (137-145) mmol/L Carbon Dioxide 21 L (22-30) mmol/L BUN 18 H (7-17) mg/dL Creatinine 0.39 L (0.52-1.04) mg/dL Glucose 59 L (74-99) mg/dL POC Glucose (mg/dL) (70-110) mg/dL Total Protein 6.0 L (6.3-8.2) g/dL Albumin 2.1 L (3.5-5.0) g/dL 06/28/24 Range/Units 06:44 WBC (3.8-10.6) k/uL RBC (3.80-5.40) m/uL Hgb (11.4-16.0) gm/dL Hct (34.0-46.0) % RDW (11.5-15.5) % Plt Count (150-450) k/uL Neutrophils # (1.3-7.7) k/uL Lymphocytes # (1.0-4.8) k/uL PT (10.0-12.5) sec INR (<1.2) Sodium (137-145) mmol/L Carbon Dioxide (22-30) mmol/L BUN (7-17) mg/dL Creatinine (0.52-1.04) mg/dL Glucose (74-99) mg/dL POC Glucose (mg/dL) 62 L (70-110) mg/dL Total Protein (6.3-8.2) g/dL Albumin (3.5-5.0) g/dL Thrombosis Risk Factor Assmnt - Choose All That Apply Any of the Below Risk Factors Present?: Yes Each Factor Represents 1 point: Medical pt on bed rest, Obesity (BMI >25) Each Risk Factor Represents 3 Points: Age 75 years or older Thrombosis Risk Factor Assessment Total Risk Factor Score: 5 Thrombosis Risk Factor Assessment Level: High Risk Assessment and Plan Assessment: Possible infection of sacral pressure ulcer stage IV secondary to MRSA as per records, failed outpatient therapy Acute gastroenteritis, most likely reactive paroxysmal A-fib, not on anticoagulation currently. Taking aspirin and Plavix Hypertension Hyperlipidemia Plan: Continue with IV vancomycin currently. Consult infectious disease team for further antibiotic management Continue with normal saline 75 mL/h Consult surgery team for evaluation of her wounds from her back and previous brianda willie Monitor creatinine and electrolytes. Risk of nephrotoxicity explained to patient and family and they are agreeable Also will consult cardiology to help with anticoagulation management of her A-f ib Lower dose of lisinopril 20 mg down to 10 mg twice daily to decrease the chances of hypotension and side effects.. Continue with metoprolol. Consult cardiology for further management Labs and medication were reviewed.. Continue same treatment. Continue with symptomatic treatment. Resume home medication. Monitor labs and vitals. DVT and GI prophylaxis. Further recommendations as per clinical course of the patient DVT prophylaxis: Currently on aspirin GI Prophylaxis: Pepcid PT/OT: Pending patient mainly is bedridden Prognosis is guarded
--- NOTE | 2024-06-28 11:18 | P.CONS ---
History of Present Illness - Reason for Consult Consult date: 06/28/24 wound care - History of Present Illness This is a 73-year-old patient being seen on 4S. for nonhealing ulceration to the abdomen and a stage IV pressure ulcer to the sacrum. Patient had the negative pressure wound VAC initiated at [facility] postsurgery with Dr. Valles. Patient currently has the negative pressure wound VAC from her home. Family is adamant that it is not removed they do not want anything done with the wound VAC. Family states that the hospital has mistreated the patient and she does not want anything done other than management of the sacral ulceration. Patient has a stage IV pressure ulcer to the left and right buttocks. With significant amount of nonviable tissue slough and eschar minimal granulation noted tunneling and undermining noted. Patient is scheduled for surgical debridement on Thursday. She is utilizing Santyl to the site. Patient is unable to turn for offloading. She spends 90% of her time laying on her back and using pillows on her hips to help offload. Review Of Systems: Constitutional: No fever, no chills, no night sweats. No weight change. No weakness, fatigue or lethargy. No daytime sleepiness. Integumentary:reports wounds, no lesions. No rash or pruritus. No unusual bruising. No change in hair or nails. Physical exam: General Appearance: Alert, cooperative, no distress, appears stated age. Skin: See HPI all other Skin color, texture, tugor normal, no rashes or lesions. Neurologic: Alert oriented x3 Assessment: 1. Nonhealing ulceration other site with muscle involvement without necrosis 2. Unstageable pressure ulcer sacrum Plan 1. Prognosis is guarded. Family is refusing to have negative pressure wound VAC removed at this time. 2. Continue with Santyl to the sacral ulceration. Saline moist gauze ABD and secure with tape. Turn patient every 2 hours. Utilize appropriate surface for offloading. 3. Recommendation for advanced wound care and wound care center. Family stated that she is not able to transfer or come to a wound care center. She they do have home care coming into manage the ulcerations. Thank you for the consultation any questions please contact the wound care center DNP note has been reviewed and discussed with Dr. Babcock and the impression and plan of care has been directed as dictated. Past Medical History Past Medical History: Atrial Fibrillation, Hyperlipidemia, Hypertension, Myocardial Infarction ([place]) Additional Past Medical History / Comment(s): stage 4 pressure ulcer on buttocks Last Myocardial Infarction Date:: 09/07/2023 History of Any Multi-Drug Resistant Organisms: MRSA Year Discovered:: 06/27/24 MDRO Source:: coccyx Past Surgical History: Heart Catheterization With Stent Additional Past Surgical History / Comment(s): Cardiac stents, perferated bowel with ostomy Past Anesthesia/Blood Transfusion Reactions: No Reported Reaction Date of Last Stent Placement:: 09/07/2023 Past Psychological History: No Psychological Hx Reported Smoking Status: Never smoker Past Alcohol Use History: None Reported Past Drug Use History: None Reported Medications and Allergies Home Medications Medication Instructions Recorded Confirmed Type Aspirin EC [Ecotrin Low Dose] 81 mg PO DAILY 12/02/17 06/27/24 History Atorvastatin [Lipitor] 40 mg PO DAILY #90 tab 09/11/23 06/27/24 Rx Empagliflozin [Jardiance] 10 mg PO DAILY 04/15/24 06/27/24 History Nitroglycerin Sl Tabs [Nitrostat] 0.4 mg SL Q5M PRN 05/09/24 06/27/24 History Collagenase [Santyl Ointment] 1 applic TOPICAL DAILY 06/15/24 06/27/24 History Clopidogrel [Plavix] 75 mg PO DAILY 06/27/24 06/27/24 History Levofloxacin [Levaquin] 500 mg PO DAILY 06/27/24 06/27/24 History Metoprolol Succinate [Metoprolol 25 mg PO BID 06/27/24 06/27/24 History Succinate ER] Prochlorperazine [Compazine] 10 mg PO Q6H PRN 06/27/24 06/27/24 History Spironolactone [Aldactone] 25 mg PO DAILY 06/27/24 06/27/24 History lisinopriL [Zestril] 20 mg PO BID 06/27/24 06/27/24 History oxyCODONE-APAP 5-325MG [Percocet 1 tab PO Q6HR PRN 06/27/24 06/27/24 History 5-325 mg] Allergies Allergy/AdvReac Type Severity Reaction Status Date / Time Iodinated Contrast Media Allergy Wheezing/hi Verified 06/27/24 20:23 ves iodine Allergy Wheezing/hi Verified 06/27/24 20:23 ves Physical Exam Vitals: Vital Signs Temp Pulse Pulse Pulse Resp BP BP 06/28/24 07:29 98.1 F 61 16 119/87 06/27/24 22:50 56 L 17 110/74 06/27/24 22:49 98.4 F 59 L 17 125/82 06/27/24 22:21 54 L 18 116/55 06/27/24 20:15 58 L 16 89/55 06/27/24 17:11 99.3 F 55 L 18 108/90 Pulse Ox 06/28/24 07:29 96 06/27/24 22:50 95 06/27/24 22:49 96 06/27/24 22:21 95 06/27/24 20:15 97 06/27/24 17:11 96 Intake and Output 06/27/24 06/28/24 06/28/24 22:59 06:59 14:59 Other: Voiding Method External Catheter Incontinent External Catheter Weight 68.039 kg Results CBC & Chem 7: 06/28/24 02:40 06/28/24 02:40 Labs: Abnormal Lab Results - Last 24 Hours (Table) 06/27/24 06/27/24 06/27/24 Range/Units 18:50 18:50 18:50 WBC 12.8 H (3.8-10.6) k/uL RBC 3.68 L (3.80-5.40) m/uL Hgb 9.3 L (11.4-16.0) gm/dL Hct 29.6 L (34.0-46.0) % MCH (27.0-32.0) pg MCHC (32.0-37.0) g/dL RDW 18.1 H (11.5-15.5) % Plt Count 455 H (150-450) k/uL MPV (9.5-12.2) FL Immature Gran # (0.00-0.04) X 10*3/uL Neutrophils # 11.3 H (1.3-7.7) k/uL Lymphocytes # 0.7 L (1.0-4.8) k/uL Monocytes # (0.20-1.00) X 10*3/uL Eosinophils # (0.04-0.35) X 10*3/uL PT 13.1 H (10.0-12.5) sec INR 1.2 H (<1.2) Sodium 136 L (137-145) mmol/L Carbon Dioxide 21 L (22-30) mmol/L BUN 18 H (7-17) mg/dL Creatinine 0.39 L (0.52-1.04) mg/dL BUN/Creatinine Ratio (12.00-20.00) Ratio Glucose 59 L (74-99) mg/dL POC Glucose (mg/dL) (70-110) mg/dL Calcium (8.7-10.3) mg/dL Total Protein 6.0 L (6.3-8.2) g/dL Albumin 2.1 L (3.5-5.0) g/dL Globulin (1.6-3.3) g/dL Albumin/Globulin Ratio (1.60-3.17) Ratio 06/28/24 06/28/24 06/28/24 Range/Units 02:40 02:40 06:44 WBC 13.05 H (3.8-10.6) k/uL RBC 3.29 L (3.80-5.40) m/uL Hgb 8.2 L (11.4-16.0) gm/dL Hct 27.5 L (34.0-46.0) % MCH 24.9 L (27.0-32.0) pg MCHC 29.8 L (32.0-37.0) g/dL RDW 19.5 H (11.5-15.5) % Plt Count (150-450) k/uL MPV 9.0 L (9.5-12.2) FL Immature Gran # 0.08 H (0.00-0.04) X 10*3/uL Neutrophils # 10.63 H (1.3-7.7) k/uL Lymphocytes # (1.0-4.8) k/uL Monocytes # 1.19 H (0.20-1.00) X 10*3/uL Eosinophils # 0.01 L (0.04-0.35) X 10*3/uL PT (10.0-12.5) sec INR (<1.2) Sodium (137-145) mmol/L Carbon Dioxide 20.5 L (22-30) mmol/L BUN (7-17) mg/dL Creatinine 0.4 L (0.52-1.04) mg/dL BUN/Creatinine Ratio 42.75 H (12.00-20.00) Ratio Glucose 55 L (74-99) mg/dL POC Glucose (mg/dL) 62 L (70-110) mg/dL Calcium 7.9 L (8.7-10.3) mg/dL Total Protein 5.5 L (6.3-8.2) g/dL Albumin 1.9 L (3.5-5.0) g/dL Globulin 3.6 H (1.6-3.3) g/dL Albumin/Globulin Ratio 0.53 L (1.60-3.17) Ratio Assessment and Plan (1) Non-pressure chronic ulcer of skin of other sites with muscle involvement without evidence of necrosis Current Visit: No Status: Acute Code(s): L98.495 - NON-PRS [facility] SKIN/ OTH SITE WITH MSL INVL W/O EVD OF NECR SNOMED Code(s): 72716863 (2) Unstageable pressure ulcer of sacral region Current Visit: No Status: Acute Code(s): L89.150 - PRESSURE ULCER OF SACRAL REGION, UNSTAGEABLE SNOMED Code(s): 50785787598396307
[2024-06-28 11:33] VITALS: BMI 26.5
--- NOTE | 2024-06-28 11:52 | P.GSCN ---
History of Present Illness Consult date: 06/28/24 History of present illness: CHIEF COMPLAINT: Sacral wound HISTORY OF PRESENT ILLNESS: This is a 73-year-old female who presents to the hospital with complaints of worsening of her sacral wound. She is followed by wound care service at home. They have been placing Santyl on the wound. Patient is mostly bedbound. She is unable to stand. Family reports cultures of the wound were taken by the home care service. Patient with recent abdominal surgery for perforated diverticulitis and developing small bowel obstruction. She is status post exploratory laparotomy diverting colostomy and small bowel resection on 05/18/2024. Patient does have a wound VAC on her midline incision that is intact. Surgical service consulted for evaluation of the sacral ulcer. Patient with history of coronary disease and cardiac stents. Last dose of Plavix was on Thursday. PAST MEDICAL HISTORY: Atrial Fibrillation, Hyperlipidemia, Hypertension, Myocardial Infarction ([place]), stage IV pressure ulcer on the buttocks PAST SURGICAL HISTORY: Coronary disease cardiac stents, MEDICATIONS: See below ALLERGIES: See below SOCIAL HISTORY: No illicit drug use. REVIEW OF SYSTEMS: CONSTITUTIONAL: Denies fever or chills. HEENT: Denies blurred vision, vision changes, or eye pain. Denies hemoptysis CARDIOVASCULAR: Denies chest pain or pressure. RESPIRATORY: No shortness of breath. GASTROINTESTINAL: See HPI for pertinent findings HEMATOLOGIC: Denies bleeding disorders. GENITOURINARY: Denies any blood in urine or increased urinary frequency. SKIN: Denies pruitis. Denies rash. PHYSICAL EXAM: VITAL SIGNS: Reviewed GENERAL: Well-developed in no acute distress. HEENT: No sclera icterus. Extraocular movements grossly intact. Moist buccal mucosa. Head is atraumatic, normocephalic. No nasal drainage. ABDOMEN: Soft. Nondistended. Midline incision with wound VAC in place. Ostomy functioning with stool present NEUROLOGIC: Alert and oriented. Cranial nerves II through XII grossly intact. Skin: Large sacral decubitus ulcer with granulation tissue and eschar tissue along the lower right buttocks LABORATORY DATA: WBC 13 Hgb 8.2 platelets 346 Sodium 135 potassium 3.6 creatinine 0.4 Stool for C. difficile negative IMAGING: ASSESSMENT: 1. Large sacral decubitus ulcer PLAN: -Patient scheduled for debridement of sacral decubitus ulcer on Thursday with Dr. Valles -Continue to hold Plavix Physician Sewer Pipe Cleaner note has been reviewed by physician. Signing provider agrees with the documented findings, assessment, and plan of care. Past Medical History Past Medical History: Atrial Fibrillation, Hyperlipidemia, Hypertension, Myocardial Infarction ([place]) Additional Past Medical History / Comment(s): stage 4 pressure ulcer on buttocks Last Myocardial Infarction Date:: 09/07/2023 History of Any Multi-Drug Resistant Organisms: MRSA Year Discovered:: 06/27/24 MDRO Source:: coccyx Past Surgical History: Heart Catheterization With Stent Additional Past Surgical History / Comment(s): Cardiac stents, perferated bowel with ostomy Past Anesthesia/Blood Transfusion Reactions: No Reported Reaction Date of Last Stent Placement:: 09/07/2023 Past Psychological History: No Psychological Hx Reported Smoking Status: Never smoker Past Alcohol Use History: None Reported Past Drug Use History: None Reported Medications and Allergies Home Medications Medication Instructions Recorded Confirmed Type Aspirin EC [Ecotrin Low Dose] 81 mg PO DAILY 12/02/17 06/27/24 History Atorvastatin [Lipitor] 40 mg PO DAILY #90 tab 09/11/23 06/27/24 Rx Empagliflozin [Jardiance] 10 mg PO DAILY 04/15/24 06/27/24 History Nitroglycerin Sl Tabs [Nitrostat] 0.4 mg SL Q5M PRN 05/09/24 06/27/24 History Collagenase [Santyl Ointment] 1 applic TOPICAL DAILY 06/15/24 06/27/24 History Clopidogrel [Plavix] 75 mg PO DAILY 06/27/24 06/27/24 History Levofloxacin [Levaquin] 500 mg PO DAILY 06/27/24 06/27/24 History Metoprolol Succinate [Metoprolol 25 mg PO BID 06/27/24 06/27/24 History Succinate ER] Prochlorperazine [Compazine] 10 mg PO Q6H PRN 06/27/24 06/27/24 History Spironolactone [Aldactone] 25 mg PO DAILY 06/27/24 06/27/24 History lisinopriL [Zestril] 20 mg PO BID 06/27/24 06/27/24 History oxyCODONE-APAP 5-325MG [Percocet 1 tab PO Q6HR PRN 06/27/24 06/27/24 History 5-325 mg] Allergies Allergy/AdvReac Type Severity Reaction Status Date / Time Iodinated Contrast Media Allergy Wheezing/hi Verified 06/27/24 20:23 ves iodine Allergy Wheezing/hi Verified 06/27/24 20:23 ves Surgical - Exam Vital Signs Temp Pulse Resp BP Pulse Ox 99.3 F 55 L 18 108/90 96 06/27/24 17:11 06/27/24 17:11 06/27/24 17:11 06/27/24 17:11 06/27/24 17:11 Results - Labs 06/28/24 02:40 06/28/24 02:40 Abnormal Lab Results - Last 24 Hours (Table) 06/27/24 06/27/24 06/27/24 Range/Units 18:50 18:50 18:50 WBC 12.8 H (3.8-10.6) k/uL RBC 3.68 L (3.80-5.40) m/uL Hgb 9.3 L (11.4-16.0) gm/dL Hct 29.6 L (34.0-46.0) % MCH (27.0-32.0) pg MCHC (32.0-37.0) g/dL RDW 18.1 H (11.5-15.5) % Plt Count 455 H (150-450) k/uL MPV (9.5-12.2) FL Immature Gran # (0.00-0.04) X 10*3/uL Neutrophils # 11.3 H (1.3-7.7) k/uL Lymphocytes # 0.7 L (1.0-4.8) k/uL Monocytes # (0.20-1.00) X 10*3/uL Eosinophils # (0.04-0.35) X 10*3/uL PT 13.1 H (10.0-12.5) sec INR 1.2 H (<1.2) Sodium 136 L (137-145) mmol/L Carbon Dioxide 21 L (22-30) mmol/L BUN 18 H (7-17) mg/dL Creatinine 0.39 L (0.52-1.04) mg/dL BUN/Creatinine Ratio (12.00-20.00) Ratio Glucose 59 L (74-99) mg/dL POC Glucose (mg/dL) (70-110) mg/dL Calcium (8.7-10.3) mg/dL Total Protein 6.0 L (6.3-8.2) g/dL Albumin 2.1 L (3.5-5.0) g/dL Globulin (1.6-3.3) g/dL Albumin/Globulin Ratio (1.60-3.17) Ratio 06/28/24 06/28/24 06/28/24 Range/Units 02:40 02:40 06:44 WBC 13.05 H (3.8-10.6) k/uL RBC 3.29 L (3.80-5.40) m/uL Hgb 8.2 L (11.4-16.0) gm/dL Hct 27.5 L (34.0-46.0) % MCH 24.9 L (27.0-32.0) pg MCHC 29.8 L (32.0-37.0) g/dL RDW 19.5 H (11.5-15.5) % Plt Count (150-450) k/uL MPV 9.0 L (9.5-12.2) FL Immature Gran # 0.08 H (0.00-0.04) X 10*3/uL Neutrophils # 10.63 H (1.3-7.7) k/uL Lymphocytes # (1.0-4.8) k/uL Monocytes # 1.19 H (0.20-1.00) X 10*3/uL Eosinophils # 0.01 L (0.04-0.35) X 10*3/uL PT (10.0-12.5) sec INR (<1.2) Sodium (137-145) mmol/L Carbon Dioxide 20.5 L (22-30) mmol/L BUN (7-17) mg/dL Creatinine 0.4 L (0.52-1.04) mg/dL BUN/Creatinine Ratio 42.75 H (12.00-20.00) Ratio Glucose 55 L (74-99) mg/dL POC Glucose (mg/dL) 62 L (70-110) mg/dL Calcium 7.9 L (8.7-10.3) mg/dL Total Protein 5.5 L (6.3-8.2) g/dL Albumin 1.9 L (3.5-5.0) g/dL Globulin 3.6 H (1.6-3.3) g/dL Albumin/Globulin Ratio 0.53 L (1.60-3.17) Ratio Diabetes panel 06/27/24 06/28/24 Range/Units 18:50 02:40 Sodium 136 L 135 (137-145) mmol/L Potassium 3.6 3.6 (3.5-5.1) mmol/L Chloride 106 103 (98-107) mmol/L Carbon Dioxide 21 L 20.5 L (22-30) mmol/L BUN 18 H 17.1 (7-17) mg/dL Creatinine 0.39 L 0.4 L (0.52-1.04) mg/dL Glucose 59 L 55 L (74-99) mg/dL Calcium 8.4 7.9 L (8.4-10.2) mg/dL AST 31 24 (14-36) U/L ALT 13 12 (4-34) U/L Alkaline Phosphatase 105 94 (38-126) U/L Total Protein 6.0 L 5.5 L (6.3-8.2) g/dL Albumin 2.1 L 1.9 L (3.5-5.0) g/dL Calcium panel 06/27/24 06/28/24 Range/Units 18:50 02:40 Calcium 8.4 7.9 L (8.4-10.2) mg/dL Albumin 2.1 L 1.9 L (3.5-5.0) g/dL Pituitary panel 06/27/24 06/28/24 Range/Units 18:50 02:40 Sodium 136 L 135 (137-145) mmol/L Potassium 3.6 3.6 (3.5-5.1) mmol/L Chloride 106 103 (98-107) mmol/L Carbon Dioxide 21 L 20.5 L (22-30) mmol/L BUN 18 H 17.1 (7-17) mg/dL Creatinine 0.39 L 0.4 L (0.52-1.04) mg/dL Glucose 59 L 55 L (74-99) mg/dL Calcium 8.4 7.9 L (8.4-10.2) mg/dL Adrenal panel 06/27/24 06/28/24 Range/Units 18:50 02:40 Sodium 136 L 135 (137-145) mmol/L Potassium 3.6 3.6 (3.5-5.1) mmol/L Chloride 106 103 (98-107) mmol/L Carbon Dioxide 21 L 20.5 L (22-30) mmol/L BUN 18 H 17.1 (7-17) mg/dL Creatinine 0.39 L 0.4 L (0.52-1.04) mg/dL Glucose 59 L 55 L (74-99) mg/dL Calcium 8.4 7.9 L (8.4-10.2) mg/dL Total Bilirubin 0.5 0.3 (0.2-1.3) mg/dL AST 31 24 (14-36) U/L ALT 13 12 (4-34) U/L Alkaline Phosphatase 105 94 (38-126) U/L Total Protein 6.0 L 5.5 L (6.3-8.2) g/dL Albumin 2.1 L 1.9 L (3.5-5.0) g/dL
--- NOTE | 2024-06-28 14:40 | P.CRDCN ---
History of Present Illness Consult date: 06/28/24 History of present illness: This is a 73-year-old female patient of Dr. Lopez with a past medical history significant for diverticulitis, coronary artery disease, ischemic cardiomyopathy, hypertension, hyperlipidemia and atrial fibrillation. Patient had a recent hospitalization in May at which time she presented because of defibrillator fired and on interrogation was found to be having episodes of atrial fibrillation. Patient is not currently on anticoagulation most likely due to anemia and recent hospitalization for melanic stools possibly related to epistaxis. At the time she was found to have a perforated diverticulitis status post exploratory laparotomy and diverting colostomy with small bowel resection on 05/18.We have been asked to evaluate the patient for A-fib, on aspirin and Plavix, hypertension. Patient states that she came into the hospital due to a sacral decubitus ulcer which she has been seen by general surgery with plan for debridement on Thursday. Patient denies having any chest pain chest pressure or tightness. She states that her weight has recently been stable. Plavix is currently on hold for debridement. Blood pressure 119/74, heart rate 53, pulse ox 90% on room air. Laboratory data: WBC 13, hemoglobin 8.2, sodium 135, potassium 3.6, creatinine 0.4. Current home cardiac medications include aspirin 81 mg at night, atorvastatin 40 mg daily, Plavix 75 mg at night, Jardiance 10 mg daily, lisinopril 20 mg twice daily, metoprolol succinate 25 mg twice daily, nitroglycerin sublingually, spironolactone 25 mg daily Most recent echocardiogram obtained in April 2024 revealed ejection fraction 40 to 45%, global hypokinesis, trace aortic regurgitation, trace tricuspid regurgitation, mild mitral regurgitation Cardiac catheterization history: August 2023 with stenting of the proximal LAD REVIEW OF SYSTEMS: At the time of my exam: CONSTITUTIONAL: Denies fever or chills. HEENT: Denies blurred vision, vision changes, or eye pain. Denies hemoptysis CARDIOVASCULAR: Denies chest pain. Denies orthopnea. Denies PND. Denies palpitations RESPIRATORY: Denies shortness of breath. GASTROINTESTINAL: Denies abdominal pain. Denies nausea or vomiting. HEMATOLOGIC: Denies bleeding disorders. GENITOURINARY: Denies any blood in urine. SKIN: Denies pruitis. Denies rash. PHYSICAL EXAM: VITAL SIGNS: Reviewed. GENERAL: Well-developed in no acute distress. HEENT: Head is normocephalic. Pupils are equal, round. Sclerae anicteric. Mucous membranes of the mouth are moist. Neck supple. No JVD or thyromegaly LUNGS: Respirations even and unlabored. Lungs essentially clear to auscultation bilaterally. HEART: Irregular rate and rhythm. S1 and S2 heard. ABDOMEN: Soft. Tenderness with palpation. EXTREMITIES: Normal range of motion. No clubbing or cyanosis. Peripheral pulses intact. No lower extremity edema NEUROLOGIC: Awake and alert. Oriented x 3. ASSESSMENT: Sacral decubitus ulcer Paroxysmal atrial fibrillation not currently on anticoagulation History of Diverticulitis with pneumoperitoneum status post bowel resection and colostomy Coronary artery disease with previous PCI, most recently to proximal LAD in August 2023 Ischemic cardiomyopathy 30% with recent ICD implantation, improved to 40-45% Hypertension Hyperlipidemia PLAN: ICD to be interrogated Continue patient's home cardiac medications with exception of Plavix which is on hold for wound debridement Regarding anticoagulation, this can be addressed as an outpatient Further recommendations pending patient course Nurse practitioner note has been reviewed by physician. Signing provider agrees with the documented findings, assessment, and plan of care documented by TELECOMMUNICATION OPERATOR as a scribe. Past Medical History Past Medical History: Atrial Fibrillation, Hyperlipidemia, Hypertension, Myocardial Infarction ([place]) Additional Past Medical History / Comment(s): stage 4 pressure ulcer on buttocks Last Myocardial Infarction Date:: 09/07/2023 History of Any Multi-Drug Resistant Organisms: MRSA Date of last positivie culture/infection: 06/27/24 MDRO Source:: coccyx Past Surgical History: Heart Catheterization With Stent Additional Past Surgical History / Comment(s): Cardiac stents, perferated bowel with ostomy Past Anesthesia/Blood Transfusion Reactions: No Reported Reaction Date of Last Stent Placement:: 09/07/2023 Past Psychological History: No Psychological Hx Reported Smoking Status: Never smoker Past Alcohol Use History: None Reported Past Drug Use History: None Reported Medications and Allergies Home Medications Medication Instructions Recorded Confirmed Type Aspirin EC [Ecotrin Low Dose] 81 mg PO DAILY 12/02/17 06/27/24 History Atorvastatin [Lipitor] 40 mg PO DAILY #90 tab 09/11/23 06/27/24 Rx Empagliflozin [Jardiance] 10 mg PO DAILY 04/15/24 06/27/24 History Nitroglycerin Sl Tabs [Nitrostat] 0.4 mg SL Q5M PRN 05/09/24 06/27/24 History Collagenase [Santyl Ointment] 1 applic TOPICAL DAILY 06/15/24 06/27/24 History Clopidogrel [Plavix] 75 mg PO DAILY 06/27/24 06/27/24 History Levofloxacin [Levaquin] 500 mg PO DAILY 06/27/24 06/27/24 History Metoprolol Succinate [Metoprolol 25 mg PO BID 06/27/24 06/27/24 History Succinate ER] Prochlorperazine [Compazine] 10 mg PO Q6H PRN 06/27/24 06/27/24 History Spironolactone [Aldactone] 25 mg PO DAILY 06/27/24 06/27/24 History lisinopriL [Zestril] 20 mg PO BID 06/27/24 06/27/24 History oxyCODONE-APAP 5-325MG [Percocet 1 tab PO Q6HR PRN 06/27/24 06/27/24 History 5-325 mg] Allergies Allergy/AdvReac Type Severity Reaction Status Date / Time Iodinated Contrast Media Allergy Wheezing/hi Verified 06/27/24 20:23 ves iodine Allergy Wheezing/hi Verified 06/27/24 20:23 ves Physical Exam Vitals: Vital Signs Temp Pulse Pulse Pulse Resp BP BP 06/28/24 07:29 98.1 F 61 16 119/87 06/27/24 22:50 56 L 17 110/74 06/27/24 22:49 98.4 F 59 L 17 125/82 06/27/24 22:21 54 L 18 116/55 06/27/24 20:15 58 L 16 89/55 06/27/24 17:11 99.3 F 55 L 18 108/90 Pulse Ox 06/28/24 07:29 96 06/27/24 22:50 95 06/27/24 22:49 96 06/27/24 22:21 95 06/27/24 20:15 97 06/27/24 17:11 96 Intake and Output 06/27/24 06/28/24 06/28/24 22:59 06:59 14:59 Other: Voiding Method External Catheter Incontinent External Catheter Weight 68.039 kg 68.039 kg Results 06/28/24 02:40 06/28/24 02:40 Cardiac Enzymes 06/27/24 06/28/24 Range/Units 18:50 02:40 AST 31 24 (14-36) U/L Coagulation 06/27/24 Range/Units 18:50 PT 13.1 H (10.0-12.5) sec APTT 24.8 (22.0-30.0) sec CBC 06/27/24 06/28/24 Range/Units 18:50 02:40 WBC 12.8 H 13.05 H (3.8-10.6) k/uL RBC 3.68 L 3.29 L (3.80-5.40) m/uL Hgb 9.3 L 8.2 L (11.4-16.0) gm/dL Hct 29.6 L 27.5 L (34.0-46.0) % Plt Count 455 H 346 (150-450) k/uL Comprehensive Metabolic Panel 06/27/24 06/28/24 Range/Units 18:50 02:40 Sodium 136 L 135 (137-145) mmol/L Potassium 3.6 3.6 (3.5-5.1) mmol/L Chloride 106 103 (98-107) mmol/L Carbon Dioxide 21 L 20.5 L (22-30) mmol/L BUN 18 H 17.1 (7-17) mg/dL Creatinine 0.39 L 0.4 L (0.52-1.04) mg/dL Glucose 59 L 55 L (74-99) mg/dL Calcium 8.4 7.9 L (8.4-10.2) mg/dL AST 31 24 (14-36) U/L ALT 13 12 (4-34) U/L Alkaline Phosphatase 105 94 (38-126) U/L Total Protein 6.0 L 5.5 L (6.3-8.2) g/dL Albumin 2.1 L 1.9 L (3.5-5.0) g/dL Current Medications Generic Name Dose Route Start Last Admin Trade Name Freq PRN Reason Stop Dose Admin Acetaminophen 650 mg 06/27/24 19:11 Acetaminophen Tab 325 Mg Tab PO Q6HR PRN Mild Pain or Fever > 100.5 Aspirin 81 mg 06/29/24 09:00 Aspirin 81 Mg PO DAILY ANABELLA Atorvastatin Calcium 40 mg 06/29/24 09:00 Atorvastatin 40 Mg Tab PO DAILY [facility] Famotidine 20 mg 06/27/24 21:00 06/28/24 07:57 Famotidine 20 Mg Tab PO 20 mg BID ANABELLA Administration Sodium Chloride 1,000 mls @ 75 mls/hr 06/27/24 19:15 06/28/24 07:57 Saline 0.9% IV 75 mls/hr .[id number] ANABELLA Administration Vancomycin HCl 1,250 mg/ 250 mls @ 125 mls/hr 06/28/24 10:00 06/28/24 07:57 Sodium Chloride IVPB 125 mls/hr Q16H ANABELLA Administration Lisinopril 10 mg 06/28/24 21:00 Lisinopril 10 Mg Tab PO BID [facility] Metoprolol Succinate 25 mg 06/28/24 21:00 Metoprolol Succinate (Er) 25 Mg Tab.Er.24h PO BID [facility] Morphine Sulfate 4 mg 06/27/24 19:11 Morphine Sulfate 4 Mg/Ml Syringe IV Q4HR PRN Severe Pain (Scale 7 to 10) Naloxone HCl 0.2 mg 06/27/24 19:11 Naloxone 0.4 Mg/Ml 1 Ml Vial IV Q2M PRN Opioid Reversal Nitroglycerin 0.4 mg 06/28/24 09:13 Nitroglycerin Sl Tabs 0.4 Mg Tab SUBLINGUAL Q5M PRN Chest Pain Oxycodone/Acetaminophen 1 each 06/28/24 09:14 Oxycodone-Apap 5-325mg 1 Each Tab PO Q6HR PRN Pain Prochlorperazine Maleate 10 mg 06/28/24 09:14 Prochlorperazine 10 Mg Tab PO Q6H PRN Nausea Intake and Output 06/27/24 06/28/24 06/28/24 22:59 06:59 14:59 Other: Voiding Method External Catheter Incontinent External Catheter Weight 68.039 kg 68.039 kg Patient Weight 06/29/24 06:59 Weight 68.039 kg 06/28/24 02:40 06/28/24 02:40
[2024-06-28] MEDS: lisinopriL 10 MG TAB PO SCH (20:55)
[2024-06-28] MEDS: METOPROLOL SUCCINATE (ER) 25 MG TAB.ER.24H PO SCH (20:55)
[2024-06-28] MEDS: oxyCODONE-APAP 5-325MG 1 EACH TAB PO PRN (20:58)
[2024-06-28] MEDS ORDERED: lisinopriL 20 MG TAB PO SCH (21:00)
--- NOTE | 2024-06-28 22:59 | P.CONS ---
History of Present Illness - Reason for Consult Consult date: 06/28/24 Infected sacral ulcer questionable MRSA Requesting physician: Shay Abel - Chief Complaint Worsening sacral wound x days - History of Present Illness Patient is a 73-year-old female with a past medical history significant for hypertension hyperlipidemia ND atrial fibrillation with recent history of perforated diverticulitis requiring laparotomy diverting colostomy patient also developed sacral pressure ulcer during that hospital stay and subsequently seem to have worsening of her sacral pressure ulcer patient has been brought into the hospital concerning for worsening of his sacral wound that apparently has been getting worse over the last few days to weeks patient complaining of pain to the sacral wound need to be sharp moderate intensity without any radiation and there is a smelly drainage patient did have a low- grade fever on presentation to the hospital patient was not tachycardic hypotensive or hypoxic she did have a white count of 12.8 with a left shift creatinine has been normal electrolytes are normal liver isms are normal patient did tested negative for C. difficile blood and local culture has been obtained which are currently pending patient is currently on vancomycin pharmacy to dose infectious disease was consulted for further management of antibiotic therapy patient has been evaluated by general surgery who is planning for debridement of this wound on Thursday Review of Systems Positive point and negatives has been mentioned in the HPI, complete review of systems was performed and all other systems are negative Past Medical History Past Medical History: Atrial Fibrillation, Hyperlipidemia, Hypertension, Myocardial Infarction (ND) Additional Past Medical History / Comment(s): stage 4 pressure ulcer on buttocks Last Myocardial Infarction Date:: 09/07/2023 History of Any Multi-Drug Resistant Organisms: MRSA Year Discovered:: 06/27/24 MDRO Source:: coccyx Past Surgical History: Heart Catheterization With Stent Additional Past Surgical History / Comment(s): Cardiac stents, perferated bowel with ostomy Past Anesthesia/Blood Transfusion Reactions: No Reported Reaction Date of Last Stent Placement:: 09/07/2023 Past Psychological History: No Psychological Hx Reported Smoking Status: Never smoker Past Alcohol Use History: None Reported Past Drug Use History: None Reported Medications and Allergies Home Medications Medication Instructions Recorded Confirmed Type Aspirin EC [Ecotrin Low Dose] 81 mg PO DAILY 12/02/17 06/27/24 History Atorvastatin [Lipitor] 40 mg PO DAILY #90 tab 09/11/23 06/27/24 Rx Empagliflozin [Jardiance] 10 mg PO DAILY 04/15/24 06/27/24 History Nitroglycerin Sl Tabs [Nitrostat] 0.4 mg SL Q5M PRN 05/09/24 06/27/24 History Collagenase [Santyl Ointment] 1 applic TOPICAL DAILY 06/15/24 06/27/24 History Clopidogrel [Plavix] 75 mg PO DAILY 06/27/24 06/27/24 History Levofloxacin [Levaquin] 500 mg PO DAILY 06/27/24 06/27/24 History Metoprolol Succinate [Metoprolol 25 mg PO BID 06/27/24 06/27/24 History Succinate ER] Prochlorperazine [Compazine] 10 mg PO Q6H PRN 06/27/24 06/27/24 History Spironolactone [Aldactone] 25 mg PO DAILY 06/27/24 06/27/24 History lisinopriL [Zestril] 20 mg PO BID 06/27/24 06/27/24 History oxyCODONE-APAP 5-325MG [Percocet 1 tab PO Q6HR PRN 06/27/24 06/27/24 History 5-325 mg] Allergies Allergy/AdvReac Type Severity Reaction Status Date / Time Iodinated Contrast Media Allergy Wheezing/hi Verified 06/27/24 20:23 ves iodine Allergy Wheezing/hi Verified 06/27/24 20:23 ves Physical Exam Vitals: Vital Signs Temp Pulse Pulse Pulse Resp BP BP 06/28/24 13:35 98.2 F 53 L 16 119/74 06/28/24 07:29 98.1 F 61 16 119/87 06/27/24 22:50 56 L 17 110/74 06/27/24 22:49 98.4 F 59 L 17 125/82 06/27/24 22:21 54 L 18 116/55 06/27/24 20:15 58 L 16 89/55 06/27/24 17:11 99.3 F 55 L 18 108/90 Pulse Ox 06/28/24 13:35 96 06/28/24 07:29 96 06/27/24 22:50 95 06/27/24 22:49 96 06/27/24 22:21 95 06/27/24 20:15 97 06/27/24 17:11 96 Intake and Output 06/28/24 06/28/24 06/28/24 06:59 14:59 22:59 Other: Voiding Method External Catheter Incontinent External Catheter Weight 68.039 kg GENERAL DESCRIPTION: Elderly female lying in bed, no distress. No tachypnea or accessory muscle of respiration use. HEENT: Shows Pallor , no scleral icterus. Oral mucous membrane is dry. No pharyngeal erythema or thrush NECK: Trachea central, no thyromegaly. LUNGS: Unlabored breathing. Clear to auscultation anteriorly. No wheeze or crackle. HEART: S1, S2, regular rate and rhythm. No loud murmur ABDOMEN: Soft, no tenderness , EXTREMITIES: No edema of feet. SKIN: Patient did have unstageable sacral pressure ulcer with significant amount of necrotic and slough tissue and foul-smelling drainage NEUROLOGICAL: The patient is awake, alert, oriented x3, mood and affect normal. Results CBC & Chem 7: 06/28/24 02:40 06/28/24 02:40 Labs: Abnormal Lab Results - Last 24 Hours (Table) 06/27/24 06/27/24 06/27/24 Range/Units 18:50 18:50 18:50 WBC 12.8 H (3.8-10.6) k/uL RBC 3.68 L (3.80-5.40) m/uL Hgb 9.3 L (11.4-16.0) gm/dL Hct 29.6 L (34.0-46.0) % MCH (27.0-32.0) pg MCHC (32.0-37.0) g/dL RDW 18.1 H (11.5-15.5) % Plt Count 455 H (150-450) k/uL MPV (9.5-12.2) FL Immature Gran # (0.00-0.04) X 10*3/uL Neutrophils # 11.3 H (1.3-7.7) k/uL Lymphocytes # 0.7 L (1.0-4.8) k/uL Monocytes # (0.20-1.00) X 10*3/uL Eosinophils # (0.04-0.35) X 10*3/uL PT 13.1 H (10.0-12.5) sec INR 1.2 H (<1.2) Sodium 136 L (137-145) mmol/L Carbon Dioxide 21 L (22-30) mmol/L BUN 18 H (7-17) mg/dL Creatinine 0.39 L (0.52-1.04) mg/dL BUN/Creatinine Ratio (12.00-20.00) Ratio Glucose 59 L (74-99) mg/dL POC Glucose (mg/dL) (70-110) mg/dL Calcium (8.7-10.3) mg/dL Total Protein 6.0 L (6.3-8.2) g/dL Albumin 2.1 L (3.5-5.0) g/dL Globulin (1.6-3.3) g/dL Albumin/Globulin Ratio (1.60-3.17) Ratio 06/28/24 06/28/24 06/28/24 Range/Units 02:40 02:40 06:44 WBC 13.05 H (3.8-10.6) k/uL RBC 3.29 L (3.80-5.40) m/uL Hgb 8.2 L (11.4-16.0) gm/dL Hct 27.5 L (34.0-46.0) % MCH 24.9 L (27.0-32.0) pg MCHC 29.8 L (32.0-37.0) g/dL RDW 19.5 H (11.5-15.5) % Plt Count (150-450) k/uL MPV 9.0 L (9.5-12.2) FL Immature Gran # 0.08 H (0.00-0.04) X 10*3/uL Neutrophils # 10.63 H (1.3-7.7) k/uL Lymphocytes # (1.0-4.8) k/uL Monocytes # 1.19 H (0.20-1.00) X 10*3/uL Eosinophils # 0.01 L (0.04-0.35) X 10*3/uL PT (10.0-12.5) sec INR (<1.2) Sodium (137-145) mmol/L Carbon Dioxide 20.5 L (22-30) mmol/L BUN (7-17) mg/dL Creatinine 0.4 L (0.52-1.04) mg/dL BUN/Creatinine Ratio 42.75 H (12.00-20.00) Ratio Glucose 55 L (74-99) mg/dL POC Glucose (mg/dL) 62 L (70-110) mg/dL Calcium 7.9 L (8.7-10.3) mg/dL Total Protein 5.5 L (6.3-8.2) g/dL Albumin 1.9 L (3.5-5.0) g/dL Globulin 3.6 H (1.6-3.3) g/dL Albumin/Globulin Ratio 0.53 L (1.60-3.17) Ratio Assessment and Plan (1) Unstageable pressure ulcer of sacral region Current Visit: No Status: Acute Code(s): L89.150 - PRESSURE ULCER OF SACRAL REGION, UNSTAGEABLE SNOMED Code(s): 44893787040116502 Plan: 1patient presented to hospital with worsening of her sacral pressure ulcer with the patient has for more than a month now failing outpatient treatment with santyl, patient did have significant amount of necrotic and slough tissue and foul-smelling drainage and will need to cover for the polymicrobial jasmyn including gram-positive as well as gram-negative apparently outpatient culture positive for MRSA however I do not have access to those culture has not been at [facility] 2-patient benefit from surgical debridement and deep culture 3-we will check inflammatory markers 4-vancomycin pharmacy to dose target trough of 15 while watching kidney function and Vanco trough closely we will add Unasyn to cover for the gram-negat beronica and anaerobes We will follow on clinical condition and cultures to further adjust medication if needed Thank you for this consultation we will follow the patient along with you Dictation was produced using [employer] dictation software. please excuse any grammatical, word or spelling errors. Time with Patient: Greater than 30
[2024-06-29] MEDS: AMPICILLIN-SULBACTAM 3 GM in SODIUM CHLORIDE 0.9% 100 ML IVPB SCH (00:03)
[2024-06-29] MEDS: ATORVASTATIN 40 MG TAB PO SCH (08:07)
[2024-06-29] MEDS: ASPIRIN 81 MG PO SCH (08:07)
[2024-06-29] MEDS: IV FLUID CONTINUATION 1,000 ML IV ONE (09:20)
[2024-06-29] MEDS: LIDOCAINE 1%-EPI 1:100,000 20 ML VIAL SQ ONE (09:40)
[2024-06-29 10:10] LABS: Glucose,Whole Blood 71 mg/dL (70-110)
[2024-06-29] MEDS ORDERED: PROPOFOL 10 MG/ML 20 ML VIAL IV ONE (10:12)
[2024-06-29] MEDS ORDERED: ePHEDrine 50 MG/ML 1 ML VIAL ONE (10:12)
[2024-06-29] MEDS ORDERED: LIDOCAINE 1% INJ 10MG/ML (20 ML MDV) ONE (10:12)
[2024-06-29] MEDS ORDERED: fentaNYL (PF) 50 MCG/ML 2 ML AMP ONE (10:12)
[2024-06-29] MEDS ORDERED: SUCCINYLCHOLINE CHLORIDE 200 MG/10 ML VIAL IV ONE (10:12)
[2024-06-29] MEDS: LACTATED RINGERS 1,000 ML IV ONE (10:39)
--- NOTE | 2024-06-29 11:03 | P.OP ---
Date of Procedure: 06/29/24 Preoperative Diagnosis: Sacral decubitus ulcer Postoperative Diagnosis: Sacral decubitus ulcer Procedure(s) Performed: Debridement of sacral decubitus ulcer Anesthesia: MAC Surgeon: Dario Valles Estimated Blood Loss (ml): 10 Pathology: other (Necrotic skin fat muscle) Condition: stable Disposition: PACU Description of Procedure: The patient was placed on the operative table in the prone position after receiving general anesthesia. Her decubitus ulcer was prepped and draped you sterile fashion. The ulcer measured approximately 15 x 15 cm. The area was sharply debrided with a 10 blade and then using electrocautery the necrotic skin fat and muscle was debrided. The ulcer extends all the way to the coccyx. The depth of the ulcer vary between 2 and 4 cm. After hemostasis achieved. The wound was packed with Kerlix. Patient Toller procedure well. She was sent to r ecovery room in stable condition.
[2024-06-29] MEDS: MORPHINE SULFATE 2 MG/ML SYRINGE IV PRN (15:13)
[2024-06-29 21:54] LABS: Glucose,Whole Blood 99 mg/dL (70-110)
--- NOTE | 2024-06-29 23:29 | P.PN ---
Subjective This is a pleasant 73 years old female with past medical history of multiple medical problems including atrial fibrillation, hypertension, hyperlipidemia. She was recently discharged from the hospital on 06/21 about a week ago for suspected GI bleed versus swallowing multiple episodes of epistaxis while being on Eliquis.. Patient was recently treated for perforated diverticulitis status post exploratory laparotomy with diverting colostomy with small bowel resection on 05/18/2024. Also she had sacral pressure ulcers with wound VAC. [facility] to [facility]. She presents this time because of her sacral pressure ulcers as wound culture showing MRSA per records, her niece who has medical background states that her culture was positive for 6 microorganisms. Patient currently is on IV vancomycin and wound VAC still in place pictures of the wounds are reviewed with the family and the daughter at bedside. Patient complains from back pain about 8/10, increased with movement but it is chronic as well At baseline she was able to walk little bit with a walker before she got her surgery for perforated ulcers and since then she was not able to walk. At baseline she could walk only for short distance as per daughter. Currently she is bedridden She denies chest pain or dyspnea. No abdominal pain vomiting or diarrhea. Her colostomy bag in place with brown stool. No headache dizziness weakness or numbness. No smoking or illicit drugs. She is hemodynamically stable. Labs reviewed showing mild leukocytosis of 12.3, hemoglobin 9.3, platelet count 452. BMP and liver enzymes were unremarkable, INR is unremarkable. C. difficile test was negative. As per family currently she is taking aspirin and Plavix while Eliquis remains on hold. Last time on discharge Eliquis was held with recommendation patient follow-up with her primary care doctor to resume it. She was discharged on aspirin 81 mg only. While currently she is taking aspirin and Plavix 06/29 Patient looks tired and weak She denies pain no breathing difficulty no chest pain or abdominal pain She underwent debridement of her sacral pressure ulcer today, with cultures pend ing and currently covered with IV vancomycin and Unasyn Also chief librarian music department evaluated the patient for A-fib and he recommended to continue with antiplatelet therapy, currently Plavix on hold but can be resumed surgery Several family members at bedside all questions answered Labs showed leukocytosis 13,000, hemoglobin 8.2 Objective - Vital Signs Vital signs: Vital Signs Temp 98.0 F 06/29/24 13:20 Pulse 62 06/29/24 13:20 Resp 17 06/29/24 13:20 BP 142/89 06/29/24 13:20 Pulse Ox 94 L 06/29/24 13:20 FiO2 Intake & Output 06/29/24 06/29/24 06/30/24 06:59 18:59 06:59 Intake Total 500 Output Total 200 705 Balance -200 -205 Intake: IV 500 Output: Urine 200 700 Estimated Blood Loss 5 Other: Voiding Method Incontinent Incontinent External Catheter External Catheter - Exam GENERAL: The patient is alert and oriented x3, not in any acute distress. Well developed, well nourished. HEENT: Pupils are round and equally reacting to light. EOMI. No scleral icterus. No conjunctival pallor. Normocephalic, atraumatic. No pharyngeal erythema. No thyromegaly. CARDIOVASCULAR: S1 and S2 present. No murmurs, rubs, or gallops. PULMONARY: Chest is clear to auscultation, no wheezing , no crackles. ABDOMEN: Soft, nontender, nondistended, normoactive bowel sounds. No palpable organomegaly. -MUSCULOSKELETAL: No joint swelling or deformity. Sacral pressure ulcer, unstageable EXTREMITIES: No cyanosis, clubbing, or pedal edema. NEUROLOGICAL: Gross neurological examination did not reveal any focal deficits. SKIN: No rashes. no petechiae. - Labs CBC & Chem 7: 06/28/24 02:40 06/28/24 02:40 Labs: Microbiology - Last 24 Hours (Table) 06/27/24 18:50 Blood Culture - Preliminary Blood Assessment and Plan Assessment: Possible infection of sacral pressure ulcer, unstageable, failed outpatient therapy Acute gastroenteritis, most likely reactive paroxysmal A-fib, not on anticoagulation currently. Taking aspirin and Plavix Hypertension Hyperlipidemia Plan: Continue with IV vancomycin currently. Unasyn is added. Consult infectious disease team for further antibiotic management Follow-up wound culture Continue with normal saline 75 mL/h Consult surgery team for evaluation of her wounds from her back and previous surgery Monitor creatinine and electrolytes. Risk of nephrotoxicity explained to patient and family and they are agreeable Also will consult cardiology to help with anticoagulation management of her A- fib Lower dose of lisinopril 20 mg down to 10 mg twice daily to decrease the chances of hypotension and side effects.. Continue with metoprolol. Consult cardiology for further management Labs and medication were reviewed.. Continue same treatment. Continue with symptomatic treatment. Resume home medication. Monitor labs and vitals. DVT and GI prophylaxis. Further recommendations as per clinical course of the patient DVT prophylaxis: Currently on aspirin GI Prophylaxis: Pepcid PT/OT: Pending patient mainly is bedridden Prognosis is guarded
[2024-06-30 06:19] LABS: Glucose,Whole Blood 80 mg/dL (70-110)
[2024-06-30] MEDS: VANCOMYCIN TROUGH DUE 1 EACH MISC MISCELLANE ONE (08:47)
[2024-06-30 09:20] LABS: African American GFR (CKD) >90 (>60 ml/min/1.73 sqM); Non-African American GFR(CKD) >90 (>60 ml/min/1.73 sqM)
[2024-06-30 12:10] LABS: Glucose,Whole Blood 106 mg/dL (70-110)
--- NOTE | 2024-06-30 12:28 | P.PN ---
Subjective This is a 73-year-old female patient of Dr. Lopez with a past medical history significant for diverticulitis, coronary artery disease, ischemic c ardiomyopathy, hypertension, hyperlipidemia and atrial fibrillation. Patient had a recent hospitalization in May at which time she presented because of defibrillator fired and on interrogation was found to be having episodes of atrial fibrillation. Patient is not currently on anticoagulation most likely due to anemia and recent hospitalization for melanic stools possibly related to epistaxis. At the time she was found to have a perforated diverticulitis status post exploratory laparotomy and diverting colostomy with small bowel resection on 05/18.We have been asked to evaluate the patient for A-fib, on aspirin and Plavix, hypertension. Patient states that she came into the hospital due to a sacral decubitus ulcer which she has been seen by general surgery with plan for debridement on Thursday. Patient denies having any chest pain chest pressure or tightness. She states that her weight has recently been stable. Plavix is currently on hold for debridement. Blood pressure 119/74, heart rate 53, pulse ox 90% on room air. 06/30 Patient underwent sacral debridement. Blood culture positive for gram-negative bacilli. She denies any chest pain or pressure. Does have poor appetite. Mainly has sacral pain REVIEW OF SYSTEMS: At the time of my exam: CONSTITUTIONAL: Denies fever or chills. HEENT: Denies blurred vision, vision changes, or eye pain. Denies hemoptysis CARDIOVASCULAR: Denies chest pain. Denies orthopnea. Denies PND. Denies palpitations RESPIRATORY: Denies shortness of breath. GASTROINTESTINAL: Denies abdominal pain. Denies nausea or vomiting. HEMATOLOGIC: Denies bleeding disorders. GENITOURINARY: Denies any blood in urine. SKIN: Denies pruitis. Denies rash. PHYSICAL EXAM: VITAL SIGNS: Reviewed. GENERAL: Well-developed in no acute distress. HEENT: Head is normocephalic. Pupils are equal, round. Sclerae anicteric. Mucous membranes of the mouth are moist. Neck supple. No JVD or thyromegaly LUNGS: Respirations even and unlabored. Lungs essentially clear to auscultation bilaterally. HEART: Irregular rate and rhythm. S1 and S2 heard. ABDOMEN: Soft. Tenderness with palpation. EXTREMITIES: Normal range of motion. No clubbing or cyanosis. Peripheral pulses intact. No lower extremity edema NEUROLOGIC: Awake and alert. Oriented x 3. ASSESSMENT: Sacral decubitus ulcer Paroxysmal atrial fibrillation not currently on anticoagulation History of Diverticulitis with pneumoperitoneum status post bowel resection and colostomy Coronary artery disease with previous PCI, most recently to proximal LAD in August 2023 Ischemic cardiomyopathy 30% with recent ICD implantation, improved to 40-45% Hypertension Hyperlipidemia gram-negative bacteremia PLAN: ICD to be interrogated Continue patient's home cardiac medications with exception of Plavix which is on hold for wound debridement Regarding anticoagulation, this can be addressed as an outpatient Monitor blood cultures Prognosis guarded Objective - Vital Signs Vital signs: Vital Signs Temp 97.7 F 06/30/24 07:22 Pulse 86 06/30/24 07:22 Resp 16 06/30/24 10:56 BP 105/66 06/30/24 07:22 Pulse Ox 98 06/30/24 07:22 FiO2 Intake & Output 06/29/24 06/30/24 06/30/24 18:59 06:59 18:59 Intake Total 500 Output Total 705 Balance -205 Intake: IV 500 Output: Urine 700 Estimated Blood Loss 5 Other: Voiding Method Incontinent Incontinent Incontinent External Catheter External Catheter External Catheter - Labs CBC & Chem 7: 06/28/24 02:40 06/30/24 08:44 Labs: Abnormal Lab Results - Last 24 Hours (Table) 06/30/24 Range/Units 08:44 Creatinine 0.32 L (0.52-1.04) mg/dL Microbiology - Last 24 Hours (Table) 06/27/24 18:50 Blood Culture Gram Stain - Preliminary Blood Blood Culture - Preliminary Molecular ID
--- NOTE | 2024-06-30 13:45 | P.PN ---
Subjective Progress Note Date: 06/30/24 CHIEF COMPLAINT: Sacral decubitus ulcer HISTORY OF PRESENT ILLNESS: Patient is postop day #1 status post debridement of sacral decubitus ulcer. Patient has no new complaints. Ostomy is functioning. She has a new wound VAC placed on the midline incision of her abdomen. And currently has wet-to-dry dressing on the sacrum. Afebrile. PHYSICAL EXAM: VITAL SIGNS: Reviewed. GENERAL: in no acute distress. HEENT: No sclera icterus. Extraocular movements grossly intact. Moist buccal mucosa. Head is atraumatic, normocephalic. ABDOMEN: Soft. Nondistended. Nontender. NEUROLOGIC: Alert and oriented. Cranial nerves II through XII grossly intact. ASSESSMENT: 1. Sacral decubitus ulcer status post debridement PLAN: -Wound care per infectious disease and wound care service. Wound care service is evaluating patient for possible wound VAC on the sacrum -Antibiotics per infectious disease -Okay to resume Plavix tomorrow Physician Manager Long Term Care note has been reviewed by physician. Signing provider agrees with the documented findings, assessment, and plan of care. Objective - Vital Signs Vital signs: Vital Signs Temp 98.1 F 06/30/24 13:04 Pulse 71 06/30/24 13:04 Resp 18 06/30/24 13:04 BP 95/58 06/30/24 13:04 Pulse Ox 96 06/30/24 13:04 FiO2 Intake & Output 06/29/24 06/30/24 06/30/24 18:59 06:59 18:59 Intake Total 500 Output Total 705 Balance -205 Intake: IV 500 Output: Urine 700 Estimated Blood Loss 5 Other: Voiding Method Incontinent Incontinent Incontinent External Catheter External Catheter External Catheter - Labs CBC & Chem 7: 06/28/24 02:40 06/30/24 08:44 Labs: Abnormal Lab Results - Last 24 Hours (Table) 06/30/24 Range/Units 08:44 Creatinine 0.32 L (0.52-1.04) mg/dL Microbiology - Last 24 Hours (Table) 06/27/24 18:50 Blood Culture Gram Stain - Preliminary Blood Blood Culture - Preliminary Molecular ID
--- NOTE | 2024-06-30 13:46 | P.PN ---
Subjective This is a pleasant 73 years old female with past medical history of multiple medical problems including atrial fibrillation, hypertension, hyperlipidemia. She was recently discharged from the hospital on 06/21 about a week ago for suspected GI bleed versus swallowing multiple episodes of epistaxis while being on Eliquis.. Patient was recently treated for perforated diverticulitis status post exploratory laparotomy with diverting colostomy with small bowel resection on 05/18/2024. Also she had sacral pressure ulcers with wound VAC. She went to longterm. She presents this time because of her sacral pressure ulcers as wound culture showing MRSA per records, her niece who has medical background states that her culture was positive for 6 microorganisms. Patient currently is on IV vancomycin and wound VAC still in place pictures of the wounds are reviewed with the family and the daughter at bedside. Patient complains from back pain about 8/10, increased with movement but it is chronic as well At baseline she was able to walk little bit with a walker before she got her surgery for perforated ulcers and since then she was not able to walk. At baseline she could walk only for short distance as per daughter. Currently she is bedridden She denies chest pain or dyspnea. No abdominal pain vomiting or diarrhea. Her colostomy bag in place with brown stool. No headache dizziness weakness or numbness. No smoking or illicit drugs. She is hemodynamically stable. Labs reviewed showing mild leukocytosis of 12.3, hemoglobin 9.3, platelet count 452. BMP and liver enzymes were unremarkable, INR is unremarkable. C. difficile test was negative. As per family currently she is taking aspirin and Plavix while Eliquis remains on hold. Last time on discharge Eliquis was held with recommendation patient follow-up with her primary care doctor to resume it. She was discharged on aspirin 81 mg only. While currently she is taking aspirin and Plavix 06/29 Patient looks tired and weak She denies pain no breathing difficulty no chest pain or abdominal pain She underwent debridement of her sacral pressure ulcer today, with cultures pend ing and currently covered with IV vancomycin and Unasyn Also finishing range operator evaluated the patient for A-fib and he recommended to continue with antiplatelet therapy, currently Plavix on hold but can be resumed surgery Several family members at bedside all questions answered Labs showed leukocytosis 13,000, hemoglobin 8.2 06/30 Patient awake but lethargic She has lower back and stay visual sacral pressure ulcer, about 13 cm in diameter and very deep into the tissue. She has somewhat poor appetite but trying to picking supervisor. Her abdomen looks soft. No murmur in the heart. Breathing is equal in both sides. She has no fever and rest of vitals look stable.Creatinine 0.3. C. difficile was tested and came back negative. She has positive blood culture in the preliminary results Patient currently covered with broad-spectrum antibiotics with IV vancomycin and Unasyn which covers MRSA, gram-negative bacteria and others Family at bedside and all questions were answered Active Medications Generic Name Dose Route Start Last Admin Trade Name Freq PRN Reason Stop Dose Admin Acetaminophen 650 mg 06/27/24 19:11 Acetaminophen Tab 325 Mg Tab PO Q6HR PRN Mild Pain or Fever > 100.5 Aspirin 81 mg 06/29/24 09:00 06/30/24 08:53 Aspirin 81 Mg PO 81 mg DAILY ANABELLA Administration Atorvastatin Calcium 40 mg 06/29/24 09:00 06/30/24 08:53 Atorvastatin 40 Mg Tab PO 40 mg DAILY ANABELLA Administration Famotidine 20 mg 06/27/24 21:00 06/30/24 08:53 Famotidine 20 Mg Tab PO 20 mg BID ANABELLA Administration Sodium Chloride 1,000 mls @ 75 mls/hr 06/27/24 19:15 06/30/24 12:37 Saline 0.9% IV Not Given .[id number] [facility] Vancomycin HCl 1,250 mg/ 250 mls @ 125 mls/hr 06/28/24 10:00 06/29/24 18:37 Sodium Chloride IVPB 125 mls/hr Q16H ANABELLA Administration Ampicillin Sodium/Sulbactam 100 mls @ 200 mls/hr 06/29/24 00:00 06/30/24 05:24 Sodium 3 gm/ Sodium Chloride IVPB 200 mls/hr Q6HR ANABELLA Administration Protocol Lisinopril 10 mg 06/28/24 21:00 06/30/24 10:46 Lisinopril 10 Mg Tab PO Not Given BID [facility] Metoprolol Succinate 25 mg 06/28/24 21:00 06/30/24 08:53 Metoprolol Succinate (Er) 25 Mg Tab.Er.24h PO 25 mg BID ANABELLA Administration Morphine Sulfate 2 mg 06/29/24 13:06 06/30/24 05:23 Morphine Sulfate 2 Mg/Ml Syringe IV 2 mg Q4HR PRN Administration Moderate Pain (Scale 4 to 6) Naloxone HCl 0.2 mg 06/27/24 19:11 Naloxone 0.4 Mg/Ml 1 Ml Vial IV Q2M PRN Opioid Reversal Nitroglycerin 0.4 mg 06/28/24 09:13 Nitroglycerin Sl Tabs 0.4 Mg Tab SUBLINGUAL Q5M PRN Chest Pain Nystatin 500,000 unit 06/30/24 13:00 Nystatin 100,000 Unit/Ml Susp 500,000 Unit/5 Ml Cup PO QID ANABELLA Protocol Oxycodone/Acetaminophen 1 each 06/28/24 09:14 06/30/24 12:30 Oxycodone-Apap 5-325mg 1 Each Tab PO 1 each Q6HR PRN Administration Pain Prochlorperazine Maleate 10 mg 06/28/24 09:14 Prochlorperazine 10 Mg Tab PO Q6H PRN Nausea Objective - Vital Signs Vital signs: Vital Signs Temp 98.1 F 06/30/24 13:04 Pulse 71 06/30/24 13:04 Resp 18 06/30/24 13:04 BP 95/58 06/30/24 13:04 Pulse Ox 96 06/30/24 13:04 FiO2 Intake & Output 06/29/24 06/30/24 06/30/24 18:59 06:59 18:59 Intake Total 500 Output Total 705 Balance -205 Intake: IV 500 Output: Urine 700 Estimated Blood Loss 5 Other: Voiding Method Incontinent Incontinent Incontinent External Catheter External Catheter External Catheter - Exam GENERAL: The patient is alert and oriented x3, not in any acute distress. Well developed, well nourished. HEENT: Pupils are round and equally reacting to light. EOMI. No scleral icterus. No conjunctival pallor. Normocephalic, atraumatic. No pharyngeal erythema. No thyromegaly. CARDIOVASCULAR: S1 and S2 present. No murmurs, rubs, or gallops. PULMONARY: Chest is clear to auscultation, no wheezing , no crackles. ABDOMEN: Soft, nontender, nondistended, normoactive bowel sounds. No palpable organomegaly. -MUSCULOSKELETAL: No joint swelling or deformity. 13 cm in diam. Sacral pressure ulcer, unstageable EXTREMITIES: No cyanosis, clubbing, or pedal edema. NEUROLOGICAL: Gross neurological examination did not reveal any focal deficits. SKIN: No rashes. no petechiae. - Labs CBC & Chem 7: 06/28/24 02:40 06/30/24 08:44 Labs: Abnormal Lab Results - Last 24 Hours (Table) 06/30/24 Range/Units 08:44 Creatinine 0.32 L (0.52-1.04) mg/dL Microbiology - Last 24 Hours (Table) 06/27/24 18:50 Blood Culture Gram Stain - Preliminary Blood Blood Culture - Preliminary Molecular ID Assessment and Plan Assessment: infected of sacral pressure ulcer, unstageable, failed outpatient therapy Bacteremia secondary to above Acute gastroenteritis, most likely reactive paroxysmal A-fib, not on anticoagulation currently. Taking aspirin and Plavix Hypertension Hyperlipidemia Plan: Continue with IV vancomycin currently. Unasyn is added. Consult infectious disease team f on the case Follow-up wound culture, follow-up blood culture Continue with normal saline 75 mL/h Surgery team on the case Cardiology team on the case to help with anticoagulation and management of A-fib Lower dose of lisinopril 20 mg down to 10 mg twice daily to decrease the chances of hypotension and side effects.. Continue with metoprolol. Consult cardiology for further management Labs and medication were reviewed.. Continue same treatment. Continue with symptomatic treatment. Resume home medication. Monitor labs and vitals. DVT and GI prophylaxis. Further recommendations as per clinical course of the patient DVT prophylaxis: subcutaneous Lovenox GI Prophylaxis: Pepcid PT/OT: Pending patient mainly is bedridden Prognosis is guarded
--- NOTE | 2024-06-30 14:52 | P.PN ---
Subjective Progress Note Date: 06/29/24 Principal diagnosis: Reason for follow-up is infected sacral pressure ulcer Patient is a 73-year-old female with a past medical history significant for hypertension hyperlipidemia DE atrial fibrillation with recent history of perforated diverticulitis requiring laparotomy diverting colostomy patient also developed sacral pressure ulcer during that hospital stay and s ubsequently seem to have worsening of her sacral pressure ulcer patient has been brought into the hospital, the patient status post surgical debridement of this ulcer which was extended all the way down to the coccyx unfortunately no cultures were done. On today's evaluation that is 06/29/2024, patient has been afebrile, patient is breathing comfortably and is currently on room air, patient denies having any significant cough no chest pain, patient denies nausea vomiting or diarrhea, pain to the sacral area but no worsening. No new lab has been obtained today Objective - Vital Signs Vital signs: Vital Signs Temp 97.8 F 06/29/24 11:01 Pulse 86 06/29/24 11:30 Resp 18 06/29/24 11:30 BP 127/61 06/29/24 11:30 Pulse Ox 98 06/29/24 11:30 FiO2 Intake & Output 06/28/24 06/29/24 06/29/24 18:59 06:59 18:59 Intake Total 500 Output Total 200 5 Balance -200 495 Weight 68.039 kg Intake: IV 500 Output: Urine 200 Estimated Blood Loss 5 Other: Voiding Method Incontinent Incontinent Incontinent External Catheter External Catheter External Catheter - Exam GENERAL DESCRIPTION: An elderly female lying in bed in no distress RESPIRATORY SYSTEM: Unlabored breathing , decreased breath sounds at bases HEART: S1 S2 regular rate and rhythm , ABDOMEN: Soft , no tenderness EXTREMITIES: No edema feet - Labs CBC & Chem 7: 06/28/24 02:40 06/30/24 08:44 Labs: Microbiology - Last 24 Hours (Table) 06/27/24 18:50 Blood Culture - Preliminary Blood Assessment and Plan (1) Unstageable pressure ulcer of sacral region Current Visit: No Status: Acute Code(s): L89.150 - PRESSURE ULCER OF SACRAL REGION, UNSTAGEABLE SNOMED Code(s): 04614332491989079 (2) Sacral osteomyelitis Current Visit: Yes Status: Acute Code(s): M46.28 - OSTEOMYELITIS OF VERTEBRA, SACRAL AND SACROCOCCYGEAL REGION SNOMED Code(s): 693830820 Plan: 1patient presented to hospital with worsening of her sacral pressure ulcer with the patient has for more than a month now failing outpatient treatment with santyl, patient did have significant amount of necrotic and slough tissue and foul-smelling drainage and will need to cover for the polymicrobial jasmyn including gram-positive as well as gram-negative apparently outpatient culture positive for MRSA however I do not have access to those culture has not been at [facility] 2-patient is status post surgical debridement of this ulcer which per operative report was sustained down to the coccyx suspicious for sacral osteomyelitis un fortunately no OR cultures were done 3-patient to continue with vancomycin pharmacy to dose target trough of 15 while watching kidney function and Vanco trough closely and Unasyn while waiting for the culture to finalize Dictation was produced using [employer] dictation software. please excuse any gram matical, word or spelling errors. Time with Patient: Less than 30
--- NOTE | 2024-06-30 14:54 | P.PN ---
Subjective Progress Note Date: 06/30/24 Principal diagnosis: Reason for follow-up is infected sacral pressure ulcer Patient is a 73-year-old female with a past medical history significant for hypertension hyperlipidemia [place] atrial fibrillation with recent history of perforated diverticulitis requiring laparotomy diverting colostomy patient also developed sacral pressure ulcer during that hospital stay and s ubsequently seem to have worsening of her sacral pressure ulcer patient has been brought into the hospital, the patient status post surgical debridement of this ulcer which was extended all the way down to the coccyx unfortunately no cultures were done. On today's evaluation that is 06/30/2024, the patient continues to be afebrile, the patient is on room air and breathing comfortably, the Pt denies having any chest pain or cough, the patient denies having any abdominal pain no vomiting still complaining of pain to the sacral wound area though controlled with the pain medication. Patient blood cultures came back positive with the Proteus no CBC was done today creatinine 0.32 vancomycin trough is 19.1 Objective - Vital Signs Vital signs: Vital Signs Temp 98.1 F 06/30/24 13:04 Pulse 71 06/30/24 13:04 Resp 18 06/30/24 13:04 BP 95/58 06/30/24 13:04 Pulse Ox 96 06/30/24 13:04 FiO2 Intake & Output 06/29/24 06/30/24 06/30/24 18:59 06:59 18:59 Intake Total 500 Output Total 705 Balance -205 Intake: IV 500 Output: Urine 700 Estimated Blood Loss 5 Other: Voiding Method Incontinent Incontinent Incontinent External Catheter External Catheter External Catheter - Exam GENERAL DESCRIPTION: An elderly female lying in bed in no distress RESPIRATORY SYSTEM: Unlabored breathing , decreased breath sounds at bases HEART: S1 S2 regular rate and rhythm , ABDOMEN: Soft , no tenderness Patient did have a large sacral ulcer with significant amount of slough tissue - Labs CBC & Chem 7: 06/28/24 02:40 06/30/24 08:44 Labs: Abnormal Lab Results - Last 24 Hours (Table) 06/30/24 Range/Units 08:44 Creatinine 0.32 L (0.52-1.04) mg/dL Microbiology - Last 24 Hours (Table) 06/27/24 18:50 Blood Culture Gram Stain - Preliminary Blood Blood Culture - Preliminary Molecular ID Assessment and Plan (1) Unstageable pressure ulcer of sacral region Current Visit: No Status: Acute Code(s): L89.150 - PRESSURE ULCER OF SACRAL REGION, UNSTAGEABLE SNOMED Code(s): 66211142110100845 (2) Sacral osteomyelitis Current Visit: Yes Status: Acute Code(s): M46.28 - OSTEOMYELITIS OF VERTEBRA, SACRAL AND SACROCOCCYGEAL REGION SNOMED Code(s): 533925469 (3) Bacteremia Current Visit: Yes Status: Acute Code(s): R78.81 - BACTEREMIA SNOMED Code(s): 5173197 Plan: 1patient presented to hospital with worsening of her sacral pressure ulcer with the patient has for more than a month now failing outpatient treatment with santyl, patient did have significant amount of necrotic and slough tissue and foul-smelling drainage and will need to cover for the polymicrobial jasmyn including gram-positive as well as gram-negative apparently outpatient culture positive for MRSA however I do not have access to those culture has not been at [facility] 2-patient is status post surgical debridement of this ulcer which per operative report was sustained down to the coccyx suspicious for sacral osteomyelitis u nfortunately no OR cultures were done 3-patient did have a positive blood culture with Proteus likely source is sacral pressure ulcer 4we will discontinue vancomycin and Unasyn start the patient on Zosyn while waiting for sensitivity on the Proteus, blood culture repeat repeat document clearance wound care consulted for possible application of the wound VAC Daughter at the bedside questions answered Dictation was produced using [employer] dictation software. please excuse any grammatical, word or spelling errors. Time with Patient: Less than 30
[2024-06-30] MEDS: NYSTATIN 100,000 UNIT/ML SUSP 500,000 UNIT/5 ML CUP PO SCH (15:54)
[2024-06-30] MEDS: PIPERACILLIN-TAZOBACTAM 3.375 GM in SODIUM CHLORIDE 0.9% 100 ML IVPB SCH (16:05)
[2024-06-30 16:44] LABS: Glucose,Whole Blood 139 mg/dL (70-110)
[2024-06-30 20:05] LABS: Glucose,Whole Blood 135 mg/dL (70-110)
[2024-07-01 04:43] LABS: African American GFR (CKD) >90 (>60 ml/min/1.73 sqM); Non-African American GFR(CKD) >90 (>60 ml/min/1.73 sqM)
[2024-07-01] MEDS: ENOXAPARIN 40 MG/0.4 ML SYRINGE SQ SCH (08:07)
[2024-07-01 10:36] LABS: HCT 25.8 % (37.2-46.3); HGB 7.6 g/dL (12.0-15.0); MCH 24.4 pg (27.0-32.0); MCHC 29.5 g/dL (32.0-37.0); Mean Platelet Volume 8.6 FL (9.5-12.2); NRBC Per 100 WBC 0 X 10*3/uL (0.00-0.01); Platelet Count 260 X 10*3/uL (140-440); RBC 3.11 X 10*6/uL (4.10-5.20); RDW 19.2 % (11.5-14.5); WBC 10.26 X 10*3/uL (4.50-10.00)
--- NOTE | 2024-07-01 11:58 | P.PN ---
Subjective This is a pleasant 73 years old female with past medical history of multiple medical problems including atrial fibrillation, hypertension, hyperlipidemia. She was recently discharged from the hospital on 06/21 about a week ago for suspected GI bleed versus swallowing multiple episodes of epistaxis while being on Eliquis.. Patient was recently treated for perforated diverticulitis status post exploratory laparotomy with diverting colostomy with small bowel resection on 05/18/2024. Also she had sacral pressure ulcers with wound VAC. She went to long-term. She presents this time because of her sacral pressure ulcers as wound culture showing MRSA per records, her niece who has medical background states that her culture was positive for 6 microorganisms. Patient currently is on IV vancomycin and wound VAC still in place pictures of the wounds are reviewed with the family and the daughter at bedside. Patient complains from back pain about 8/10, increased with movement but it is chronic as well At baseline she was able to walk little bit with a walker before she got her surgery for perforated ulcers and since then she was not able to walk. At baseline she could walk only for short distance as per daughter. Currently she is bedridden She denies chest pain or dyspnea. No abdominal pain vomiting or diarrhea. Her colostomy bag in place with brown stool. No headache dizziness weakness or numbness. No smoking or illicit drugs. She is hemodynamically stable. Labs reviewed showing mild leukocytosis of 12.3, hemoglobin 9.3, platelet count 452. BMP and liver enzymes were unremarkable, INR is unremarkable. C. difficile test was negative. As per family currently she is taking aspirin and Plavix while Eliquis remains on hold. Last time on discharge Eliquis was held with recommendation patient follow-up with her primary care doctor to resume it. She was discharged on aspirin 81 mg only. While currently she is taking aspirin and Plavix 06/29 Patient looks tired and weak She denies pain no breathing difficulty no chest pain or abdominal pain She underwent debridement of her sacral pressure ulcer today, with cultures pend ing and currently covered with IV vancomycin and Unasyn Also acid recovery operator evaluated the patient for A-fib and he recommended to continue with antiplatelet therapy, currently Plavix on hold but can be resumed surgery Several family members at bedside all questions answered Labs showed leukocytosis 13,000, hemoglobin 8.2 06/30 Patient awake but lethargic She has lower back and stay visual sacral pressure ulcer, about 13 cm in diameter and very deep into the tissue. She has somewhat poor appetite but trying to clam picker. Her abdomen looks soft. No murmur in the heart. Breathing is equal in both sides. She has no fever and rest of vitals look stable.Creatinine 0.3. C. difficile was tested and came back negative. She has positive blood culture in the preliminary results Patient currently covered with broad-spectrum antibiotics with IV vancomycin and Unasyn which covers MRSA, gram-negative bacteria and others Family at bedside and all questions were answered 07/01 Patient improving slowly and gradually, she still generally weak, mentation at baseline, daughter at bedside, patient has little improvement. Has poor appetite patient was encouraged to eat and drink and she agrees. Vital stable, blood pressure on the low side but asymptomatic which is expected sometimes with bedridden patients. Blood culture came back positive for Proteus, currently covered with Zosyn. Patient and daughter request small dose of antidepressant, we will start Cymbalta, patient agrees A Objective - Vital Signs Vital signs: Vital Signs Temp 98.2 F 07/01/24 07:15 Pulse 69 07/01/24 08:04 Resp 18 07/01/24 07:15 BP 98/55 07/01/24 07:15 Pulse Ox 99 07/01/24 07:15 FiO2 Intake & Output 06/30/24 07/01/24 07/01/24 18:59 06:59 18:59 Output Total 1800 250 Balance -1800 -250 Output: Urine 1800 250 Other: Voiding Method Incontinent Incontinent Indwelling Catheter External Catheter External Catheter - Exam GENERAL: The patient is alert and oriented x3, not in any acute distress. Well developed, well nourished. HEENT: Pupils are round and equally reacting to light. EOMI. No scleral icterus. No conjunctival pallor. Normocephalic, atraumatic. No pharyngeal erythema. No thyromegaly. CARDIOVASCULAR: S1 and S2 present. No murmurs, rubs, or gallops. PULMONARY: Chest is clear to auscultation, no wheezing , no crackles. ABDOMEN: Soft, nontender, nondistended, normoactive bowel sounds. No palpable organomegaly. -MUSCULOSKELETAL: No joint swelling or deformity. 13 cm in diam. Sacral pressure ulcer, unstageable EXTREMITIES: No cyanosis, clubbing, or pedal edema. NEUROLOGICAL: Gross neurological examination did not reveal any focal deficits. SKIN: No rashes. no petechiae. - Labs CBC & Chem 7: 07/01/24 04:03 07/01/24 04:03 Labs: Abnormal Lab Results - Last 24 Hours (Table) 06/30/24 06/30/24 07/01/24 Range/Units 16:42 20:02 04:03 WBC (4.50-10.00) X 10*3/uL RBC (4.10-5.20) X 10*6/uL Hgb (12.0-15.0) g/dL Hct (37.2-46.3) % MCH (27.0-32.0) pg MCHC (32.0-37.0) g/dL RDW (11.5-14.5) % MPV (9.5-12.2) FL Creatinine 0.34 L (0.52-1.04) mg/dL POC Glucose (mg/dL) 139 H 135 H (70-110) mg/dL 07/01/24 Range/Units 04:03 WBC 10.26 H (4.50-10.00) X 10*3/uL RBC 3.11 L (4.10-5.20) X 10*6/uL Hgb 7.6 L (12.0-15.0) g/dL Hct 25.8 L (37.2-46.3) % MCH 24.4 L (27.0-32.0) pg MCHC 29.5 L (32.0-37.0) g/dL RDW 19.2 H (11.5-14.5) % MPV 8.6 L (9.5-12.2) FL Creatinine (0.52-1.04) mg/dL POC Glucose (mg/dL) (70-110) mg/dL Microbiology - Last 24 Hours (Table) 06/27/24 18:50 Blood Culture Gram Stain - Preliminary Blood Blood Culture - Preliminary Proteus mirabilis Molecular ID Assessment and Plan Assessment: infected of sacral pressure ulcer, unstageable, failed outpatient therapy Bacteremia secondary to above. Blood culture growing Proteus Acute gastroenteritis, most likely reactive depression, Mild with no suicidal ideation paroxysmal A-fib, not on anticoagulation currently. Taking aspirin and Plavix Hypertension Hyperlipidemia Plan: Antibiotic was adjusted to IV Zosyn based on blood culture growing Proteus, as per ID team recommendation Follow-up final results for wound culture, follow-up blood culture Continue with normal saline 75 mL/h Surgery team on the case Add Cymbalta for depression Cardiology team on the case to help with anticoagulation and management of A-fib Lower dose of lisinopril 20 mg down to 10 mg twice daily to decrease the chances of hypotension and side effects.. Continue with metoprolol. Consult cardiology for further management Labs and medication were reviewed.. Continue same treatment. Continue with symptomatic treatment. Resume home medication. Monitor labs and vitals. DVT and GI prophylaxis. Further recommendations as per clinical course of the patient DVT prophylaxis: subcutaneous Lovenox GI Prophylaxis: Pepcid PT/OT: Pending patient mainly is bedridden Prognosis is guarded
[2024-07-01] MEDS: DULoxetine HCL 60 MG CAPSULE.DR PO SCH (12:16)
--- NOTE | 2024-07-01 13:34 | P.PN ---
Subjective Progress Note Date: 07/01/24 This is a 73-year-old female patient of Dr. Lopez with a past medical history significant for diverticulitis, coronary artery disease, ischemic cardiomyopathy, hypertension, hyperlipidemia and atrial fibrillation. Patient had a recent hospitalization in May at which time she presented because of defibrillator fired and on interrogation was found to be having episodes of atrial fibrillation. Patient is not currently on anticoagulation most likely due to anemia and recent hospitalization for melanic stools possibly related to epistaxis. At the time she was found to have a perforated diverticulitis status post exploratory laparotomy and diverting colostomy with small bowel resection on 05/18.We have been asked to evaluate the patient for A-fib, on aspirin and Plavix, hypertension. Patient states that she came into the hospital due to a sacral decubitus ulcer which she has been seen by general surgery with plan for debridement on Thursday. Patient denies having any chest pain chest pressure or tightness. She states that her weight has recently been stable. Plavix is currently on hold for debridement. Blood pressure 119/74, heart rate 53, pulse ox 90% on room air. 06/30 Patient underwent sacral debridement. Blood culture positive for gram-negative bacilli. She denies any chest pain or pressure. Does have poor appetite. Mainly has sacral pain 07/01 Patient is seen and examined. Blood pressure 98/55, heart rate 45-80, pulse ox 99% on room air. Patient denies having any fever or chills. Blood pressure has been on the low side. Parameters have been in place for lisinopril and she has not been receiving and we will discontinue it for now. Blood pressure 90/55, pulse ox 69, pulse ox 99% on room air. Repeat blood work reveals WBC 10.2, hemoglobin 7.6. Creatinine 0.34. Blood culture positive for Proteus mirabilis. PHYSICAL EXAM: VITAL SIGNS: Reviewed. GENERAL: Well-developed in no acute distress. HEENT: Head is normocephalic. Pupils are equal, round. Sclerae anicteric. Mucous membranes of the mouth are moist. Neck supple. No JVD or thyromegaly LUNGS: Respirations even and unlabored. Lungs essentially clear to auscultation bilaterally. HEART: Irregular rate and rhythm. S1 and S2 heard. ABDOMEN: Soft. Tenderness with palpation. EXTREMITIES: Normal range of motion. No clubbing or cyanosis. Peripheral pulses intact. No lower extremity edema NEUROLOGIC: Awake and alert. Oriented x 3. ASSESSMENT: Sacral decubitus ulcer Paroxysmal atrial fibrillation not currently on anticoagulation History of Diverticulitis with pneumoperitoneum status post bowel resection and colostomy Coronary artery disease with previous PCI, most recently to proximal LAD in August 2023 Ischemic cardiomyopathy 30% with recent ICD implantation, improved to 40-45% Hypertension Hyperlipidemia gram-negative bacteremia PLAN: Discontinue lisinopril due to low blood pressure, consider resuming once blood pressures recover Continue patient on the following cardiac medications: Aspirin 81 mg daily, atorvastatin 40 mg daily, Toprol-XL 25 mg twice daily. Regarding anticoagulation, this can be addressed as an outpatient Monitor blood cultures Prognosis guarded Nurse practitioner note has been reviewed, I agree with documented findings and plan of care. Patient was seen and examined. Objective - Vital Signs Vital signs: Vital Signs Temp 98.2 F 07/01/24 07:15 Pulse 69 07/01/24 08:04 Resp 18 07/01/24 07:15 BP 98/55 07/01/24 07:15 Pulse Ox 99 07/01/24 07:15 FiO2 Intake & Output 06/30/24 07/01/24 07/01/24 18:59 06:59 18:59 Output Total 1800 250 Balance -1800 -250 Output: Urine 1800 250 Other: Voiding Method Incontinent Incontinent External Catheter External Catheter - Labs CBC & Chem 7: 07/01/24 04:03 07/01/24 04:03 Labs: Abnormal Lab Results - Last 24 Hours (Table) 06/30/24 06/30/24 06/30/24 Range/Units 08:44 16:42 20:02 Creatinine 0.32 L (0.52-1.04) mg/dL POC Glucose (mg/dL) 139 H 135 H (70-110) mg/dL 07/01/24 Range/Units 04:03 Creatinine 0.34 L (0.52-1.04) mg/dL POC Glucose (mg/dL) (70-110) mg/dL Microbiology - Last 24 Hours (Table) 06/27/24 18:50 Blood Culture Gram Stain - Preliminary Blood Blood Culture - Preliminary Molecular ID
--- NOTE | 2024-07-01 13:36 | P.PN ---
Subjective Progress Note Date: 07/01/24 CHIEF COMPLAINT: Sacral decubitus ulcer HISTORY OF PRESENT ILLNESS: Patient is postop day #2 status post debridement of sacral decubitus ulcer. Patient has no new complaints. Ostomy is functioning. She has a new wound VAC placed on the midline incision of her abdomen. And currently has wet-to-dry dressing on the sacrum. Afebrile. WBC 10.26 hgb 7.6 PHYSICAL EXAM: VITAL SIGNS: Reviewed. GENERAL: in no acute distress. HEENT: No sclera icterus. Extraocular movements grossly intact. Moist buccal mucosa. Head is atraumatic, normocephalic. ABDOMEN: Soft. Nondistended. Wound vac midline incision intact NEUROLOGIC: Alert and oriented. Cranial nerves II through XII grossly intact. ASSESSMENT: 1. Sacral decubitus ulcer status post debridement PLAN: -Awaiting wound care service recommendations regarding possible wound VAC to the sacrum -Antibiotics per infectious disease -Continue offloading Physician Lot Associate note has been reviewed by physician. Signing provider agrees with the documented findings, assessment, and plan of care. Objective - Vital Signs Vital signs: Vital Signs Temp 98.2 F 07/01/24 07:15 Pulse 69 07/01/24 08:04 Resp 18 07/01/24 07:15 BP 98/55 07/01/24 07:15 Pulse Ox 99 07/01/24 07:15 FiO2 Intake & Output 06/30/24 07/01/24 07/01/24 18:59 06:59 18:59 Output Total 1800 250 Balance -1800 -250 Output: Urine 1800 250 Other: Voiding Method Incontinent Incontinent Indwelling Catheter External Catheter External Catheter - Labs CBC & Chem 7: 07/01/24 04:03 07/01/24 04:03 Labs: Abnormal Lab Results - Last 24 Hours (Table) 06/30/24 06/30/24 07/01/24 Range/Units 16:42 20:02 04:03 WBC (4.50-10.00) X 10*3/uL RBC (4.10-5.20) X 10*6/uL Hgb (12.0-15.0) g/dL Hct (37.2-46.3) % MCH (27.0-32.0) pg MCHC (32.0-37.0) g/dL RDW (11.5-14.5) % MPV (9.5-12.2) FL Creatinine 0.34 L (0.52-1.04) mg/dL POC Glucose (mg/dL) 139 H 135 H (70-110) mg/dL 07/01/24 Range/Units 04:03 WBC 10.26 H (4.50-10.00) X 10*3/uL RBC 3.11 L (4.10-5.20) X 10*6/uL Hgb 7.6 L (12.0-15.0) g/dL Hct 25.8 L (37.2-46.3) % MCH 24.4 L (27.0-32.0) pg MCHC 29.5 L (32.0-37.0) g/dL RDW 19.2 H (11.5-14.5) % MPV 8.6 L (9.5-12.2) FL Creatinine (0.52-1.04) mg/dL POC Glucose (mg/dL) (70-110) mg/dL Microbiology - Last 24 Hours (Table) 06/27/24 18:50 Blood Culture Gram Stain - Preliminary Blood Blood Culture - Preliminary Proteus mirabilis Molecular ID
--- NOTE | 2024-07-02 09:38 | P.PN ---
Subjective Progress Note Date: 07/02/24 Patient had a wound VAC placed yesterday. She is resting in bed comfortably. On exam vital signs appear stable. Abdomen soft. Colostomy is functioning. Status post sacral decubitus ulcer debridement. Patient continue receive supportive care. Objective - Vital Signs Vital signs: Vital Signs Temp 97.9 F 07/02/24 08:12 Pulse 80 07/02/24 08:12 Resp 16 07/02/24 08:12 BP 114/72 07/02/24 08:12 Pulse Ox 93 L 07/02/24 08:12 FiO2 Intake & Output 07/01/24 07/02/24 07/02/24 18:59 06:59 18:59 Output Total 550 Balance -550 Weight 68.039 kg Output: Urine 550 Other: Voiding Method Indwelling Catheter Indwelling Catheter - Labs CBC & Chem 7: 07/01/24 04:03 07/01/24 04:03 Labs: Abnormal Lab Results - Last 24 Hours (Table) 07/01/24 Range/Units 04:03 WBC 10.26 H (4.50-10.00) X 10*3/uL RBC 3.11 L (4.10-5.20) X 10*6/uL Hgb 7.6 L (12.0-15.0) g/dL Hct 25.8 L (37.2-46.3) % MCH 24.4 L (27.0-32.0) pg MCHC 29.5 L (32.0-37.0) g/dL RDW 19.2 H (11.5-14.5) % MPV 8.6 L (9.5-12.2) FL Microbiology - Last 24 Hours (Table) 06/27/24 18:50 Blood Culture Gram Stain - Final Blood Blood Culture - Final Proteus mirabilis Molecular ID
[2024-07-02] MEDS: PROCHLORPERAZINE 10 MG TAB PO PRN (10:14)
--- NOTE | 2024-07-02 22:32 | P.PN ---
Subjective Progress Note Date: 07/01/24 Principal diagnosis: Reason for follow-up is infected sacral pressure ulcer Patient is a 73-year-old female with a past medical history significant for hypertension hyperlipidemia RI atrial fibrillation with recent history of perforated diverticulitis requiring laparotomy diverting colostomy patient also developed sacral pressure ulcer during that hospital stay and s ubsequently seem to have worsening of her sacral pressure ulcer patient has been brought into the hospital, the patient status post surgical debridement of this ulcer which was extended all the way down to the coccyx unfortunately no cultures were done. On today's evaluation that is 07/01/2024,the patient denies any fever or any chills, patient is breathing comfortably on room air, the patient denies chest pain shortness of breath and no significant cough, patient denies abdominal pain, no nausea vomiting or diarrhea and denies any worsening pain to the sacral wound area. The patient had normal creatinine no CBC was done today blood culture with the Proteu Objective - Vital Signs Vital signs: Vital Signs Temp 98.2 F 07/01/24 07:15 Pulse 69 07/01/24 08:04 Resp 18 07/01/24 07:15 BP 98/55 07/01/24 07:15 Pulse Ox 99 07/01/24 07:15 FiO2 Intake & Output 06/30/24 07/01/24 07/01/24 18:59 06:59 18:59 Output Total 1800 250 Balance -1800 -250 Output: Urine 1800 250 Other: Voiding Method Incontinent Incontinent Indwelling Catheter External Catheter External Catheter - Exam GENERAL DESCRIPTION: An elderly female lying in bed in no distress RESPIRATORY SYSTEM: Unlabored breathing , decreased breath sounds at bases HEART: S1 S2 regular rate and rhythm , ABDOMEN: Soft , no tenderness Patient did have a large sacral ulcer with significant amount of slough tissue - Labs CBC & Chem 7: 07/01/24 04:03 07/01/24 04:03 Labs: Abnormal Lab Results - Last 24 Hours (Table) 06/30/24 06/30/24 07/01/24 Range/Units 16:42 20:02 04:03 WBC (4.50-10.00) X 10*3/uL RBC (4.10-5.20) X 10*6/uL Hgb (12.0-15.0) g/dL Hct (37.2-46.3) % MCH (27.0-32.0) pg MCHC (32.0-37.0) g/dL RDW (11.5-14.5) % MPV (9.5-12.2) FL Creatinine 0.34 L (0.52-1.04) mg/dL POC Glucose (mg/dL) 139 H 135 H (70-110) mg/dL 07/01/24 Range/Units 04:03 WBC 10.26 H (4.50-10.00) X 10*3/uL RBC 3.11 L (4.10-5.20) X 10*6/uL Hgb 7.6 L (12.0-15.0) g/dL Hct 25.8 L (37.2-46.3) % MCH 24.4 L (27.0-32.0) pg MCHC 29.5 L (32.0-37.0) g/dL RDW 19.2 H (11.5-14.5) % MPV 8.6 L (9.5-12.2) FL Creatinine (0.52-1.04) mg/dL POC Glucose (mg/dL) (70-110) mg/dL Microbiology - Last 24 Hours (Table) 06/27/24 18:50 Blood Culture Gram Stain - Preliminary Blood Blood Culture - Preliminary Proteus mirabilis Molecular ID Assessment and Plan (1) Unstageable pressure ulcer of sacral region Current Visit: No Status: Acute Code(s): L89.150 - PRESSURE ULCER OF SACRAL REGION, UNSTAGEABLE SNOMED Code(s): 62926365590395154 (2) Sacral osteomyelitis Current Visit: Yes Status: Acute Code(s): M46.28 - OSTEOMYELITIS OF VERTEBRA, SACRAL AND SACROCOCCYGEAL REGION SNOMED Code(s): 000023699 (3) Bacteremia Current Visit: Yes Status: Acute Code(s): R78.81 - BACTEREMIA SNOMED Code( s): 9905970 Plan: 1patient presented to hospital with worsening of her sacral pressure ulcer with the patient has for more than a month now failing outpatient treatment with santyl, patient did have significant amount of necrotic and slough tissue and foul-smelling drainage and will need to cover for the polymicrobial jasmyn including gram-positive as well as gram-negative apparently outpatient culture positive for MRSA however I do not have access to those culture has not been at [facility] 2-patient is status post surgical debridement of this ulcer which per operative report was sustained down to the coccyx suspicious for sacral osteomyelitis unfortunately no OR cultures were done 3-patient did have a positive blood culture with Proteus likely source is sacral pressure ulcer 4patient to continue with Zosyn while waiting for sensitivity on the Proteus, blood culture repeat to document clearance currently waiting for the wound care evaluation for possible wound vac placement Daughter at the bedside questions answered Dictation was produced using [email or web address] dictation software. please excuse any grammatical, word or spelling errors. Time with Patient: Less than 30
--- NOTE | 2024-07-02 22:33 | P.PN ---
Subjective Progress Note Date: 07/02/24 Principal diagnosis: Reason for follow-up is infected sacral pressure ulcer Patient is a 73-year-old female with a past medical history significant for hypertension hyperlipidemia LA atrial fibrillation with recent history of perforated diverticulitis requiring laparotomy diverting colostomy patient also developed sacral pressure ulcer during that hospital stay and s ubsequently seem to have worsening of her sacral pressure ulcer patient has been brought into the hospital, the patient status post surgical debridement of this ulcer which was extended all the way down to the coccyx unfortunately no cultures were done. On today's evaluation that is 07/02/2024 the patient continues to be afebrile, the patient is breathing comfortably on room air patient denies having any chest pain or cough, no nausea no vomiting abdominal pain and did have a few bowel movements starting last evening but not loose as reported by the nurse aide. Patient white count is 2.41 creatinine is 2.1 urine is going Enterococcus faecalis and Morganella Objective - Vital Signs Vital signs: Vital Signs Temp 97.9 F 07/02/24 14:05 Pulse 79 07/02/24 14:05 Resp 17 07/02/24 14:05 BP 99/66 07/02/24 14:05 Pulse Ox 96 07/02/24 14:05 FiO2 Intake & Output 07/02/24 07/02/24 07/03/24 06:59 18:59 06:59 Output Total 1500 Balance -1500 Output: Urine 1500 Other: Voiding Method Indwelling Catheter Indwelling Catheter - Exam GENERAL DESCRIPTION: An elderly female lying in bed in no distress RESPIRATORY SYSTEM: Unlabored breathing , decreased breath sounds at bases HEART: S1 S2 regular rate and rhythm , ABDOMEN: Soft , no tenderness Patient did have a large sacral ulcer with significant amount of slough tissue - Labs CBC & Chem 7: 07/01/24 04:03 07/01/24 04:03 Labs: Microbiology - Last 24 Hours (Table) 06/27/24 18:50 Blood Culture Gram Stain - Final Blood Blood Culture - Final Proteus mirabilis Molecular ID Assessment and Plan (1) Unstageable pressure ulcer of sacral region Current Visit: No Status: Acute Code(s): L89.150 - PRESSURE ULCER OF SACRAL REGION, UNSTAGEABLE SNOMED Code(s): 59144041061647272 (2) Sacral osteomyelitis Current Visit: Yes Status: Acute Code(s): M46.28 - OSTEOMYELITIS OF VERTEBRA, SACRAL AND SACROCOCCYGEAL REGION SNOMED Code(s): 185657505 (3) Bacteremia Current Visit: Yes Status: Acute Code(s): R78.81 - BACTEREMIA SNOMED Code( s): 0841870 Plan: 1patient presented to hospital with worsening of her sacral pressure ulcer with the patient has for more than a month now failing outpatient treatment with santyl, patient did have significant amount of necrotic and slough tissue and foul-smelling drainage and will need to cover for the polymicrobial jasmyn including gram-positive as well as gram-negative apparently outpatient culture positive for MRSA however I do not have access to those culture has not been at [facility] 2-patient is status post surgical debridement of this ulcer which per operative report was sustained down to the coccyx suspicious for sacral osteomyelitis unfortunately no OR cultures were done 3-patient did have a positive blood culture with Proteus likely source is sacral pressure ulcer 4patient to continue with Zosyn while waiting for sensitivity on the Proteus, blood culture repeat has been requested to document clearance of bacteremia Family members at bedside have multiple questions concern, those has been answered in layman term Dictation was produced using [employer] dictation software. please excuse any grammatical, word or spelling errors. Time with Patient: Less than 30
--- NOTE | 2024-07-02 23:03 | P.PN ---
Subjective This is a pleasant 73 years old female with past medical history of multiple medical problems including atrial fibrillation, hypertension, hyperlipidemia. She was recently discharged from the hospital on 06/21 about a week ago for suspected GI bleed versus swallowing multiple episodes of epistaxis while being on Eliquis.. Patient was recently treated for perforated diverticulitis status post exploratory laparotomy with diverting colostomy with small bowel resection on 05/18/2024. Also she had sacral pressure ulcers with wound VAC. [facility]. She presents this time because of her sacral pressure ulcers as wound culture showing MRSA per records, her niece who has medical background states that her culture was positive for 6 microorganisms. Patient currently is on IV vancomycin and wound VAC still in place pictures of the wounds are reviewed with the family and the daughter at bedside. Patient complains from back pain about 8/10, increased with movement but it is chronic as well At baseline she was able to walk little bit with a walker before she got her surgery for perforated ulcers and since then she was not able to walk. At baseline she could walk only for short distance as per daughter. Currently she is bedridden She denies chest pain or dyspnea. No abdominal pain vomiting or diarrhea. Her colostomy bag in place with brown stool. No headache dizziness weakness or numbness. No smoking or illicit drugs. She is hemodynamically stable. Labs reviewed showing mild leukocytosis of 12.3, hemoglobin 9.3, platelet count 452. BMP and liver enzymes were unremarkable, INR is unremarkable. C. difficile test was negative. As per family currently she is taking aspirin and Plavix while Eliquis remains on hold. Last time on discharge Eliquis was held with recommendation patient follow-up with her primary care doctor to resume it. She was discharged on aspirin 81 mg only. While currently she is taking aspirin and Plavix 06/29 Patient looks tired and weak She denies pain no breathing difficulty no chest pain or abdominal pain She underwent debridement of her sacral pressure ulcer today, with cultures pend ing and currently covered with IV vancomycin and Unasyn Also lap hand tool evaluated the patient for A-fib and he recommended to continue with antiplatelet therapy, currently Plavix on hold but can be resumed surgery Several family members at bedside all questions answered Labs showed leukocytosis 13,000, hemoglobin 8.2 06/30 Patient awake but lethargic She has lower back and stay visual sacral pressure ulcer, about 13 cm in diameter and very deep into the tissue. 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 Her abdomen looks soft. No murmur in the heart. Breathing is equal in both sides. She has no fever and rest of vitals look stable.Creatinine 0.3. C. difficile was tested and came back negative. She has positive blood culture in the preliminary results Patient currently covered with broad-spectrum antibiotics with IV vancomycin and Unasyn which covers MRSA, gram-negative bacteria and others Family at bedside and all questions were answered 07/01 Patient improving slowly and gradually, she still generally weak, mentation at baseline, daughter at bedside, patient has little improvement. Has poor appetite patient was encouraged to eat and drink and she agrees. Vital stable, blood pressure on the low side but asymptomatic which is expected sometimes with bedridden patients. Blood culture came back positive for Proteus, currently covered with Zosyn. Patient and daughter request small dose of antidepressant, we will start Cymbalta, patient agrees A 07/02 Patient is lethargic Blood cultures positive for Proteus which is sensitive to the Zosyn she is taking based on culture sensitivity She still have some pain in her lower back after surgical debridement Patient was started for Cymbalta which helped her with the depression and back pain as well Daughter at bedside and questions were answered Objective - Vital Signs Vital signs: Vital Signs Temp 97.9 F 07/02/24 14:05 Pulse 79 07/02/24 14:05 Resp 17 07/02/24 14:05 BP 99/66 07/02/24 14:05 Pulse Ox 96 07/02/24 14:05 FiO2 Intake & Output 07/01/24 07/02/24 07/02/24 18:59 06:59 18:59 Output Total 550 1000 Balance -550 -1000 Weight 68.039 kg Output: Urine 550 1000 Other: Voiding Method Indwelling Catheter Indwelling Catheter - Exam GENERAL: The patient is alert and oriented x3, not in any acute distress. Well developed, well nourished. HEENT: Pupils are round and equally reacting to light. EOMI. No scleral icterus. No conjunctival pallor. Normocephalic, atraumatic. No pharyngeal erythema. No thyromegaly. CARDIOVASCULAR: S1 and S2 present. No murmurs, rubs, or gallops. PULMONARY: Chest is clear to auscultation, no wheezing , no crackles. ABDOMEN: Soft, nontender, nondistended, normoactive bowel sounds. No palpable organomegaly. -MUSCULOSKELETAL: No joint swelling or deformity. 13 cm in diam. Sacral pressure ulcer, unstageable EXTREMITIES: No cyanosis, clubbing, or pedal edema. NEUROLOGICAL: Gross neurological examination did not reveal any focal deficits. SKIN: No rashes. no petechiae. - Labs CBC & Chem 7: 07/01/24 04:03 07/01/24 04:03 Labs: Microbiology - Last 24 Hours (Table) 06/27/24 18:50 Blood Culture Gram Stain - Final Blood Blood Culture - Final Proteus mirabilis Molecular ID Assessment and Plan Assessment: infected of sacral pressure ulcer, unstageable, failed outpatient therapy, status post surgical debridement Bacteremia secondary to above. Blood culture growing sensitive Proteus Acute gastroenteritis, most likely reactive depression, Mild with no suicidal ideation paroxysmal A-fib, not on anticoagulation currently. Taking aspirin and Plavix Hypertension Hyperlipidemia Plan: Antibiotic was adjusted to IV Zosyn based on blood culture growing Proteus, as per ID team recommendation Follow-up final results for wound culture, follow-up blood culture Continue with normal saline 75 mL/h Surgery team on the case Add Cymbalta for depression Cardiology team on the case to help with anticoagulation and management of A-fib Lower dose of lisinopril 20 mg down to 10 mg twice daily to decrease the chances of hypotension and side effects.. Continue with metoprolol. Consult cardiology for further management Labs and medication were reviewed.. Continue same treatment. Continue with symptomatic treatment. Resume home medication. Monitor labs and vitals. DVT and GI prophylaxis. Further recommendations as per clinical course of the patient DVT prophylaxis: subcutaneous Lovenox GI Prophylaxis: Pepcid PT/OT: Pending patient mainly is bedridden Prognosis is guarded
--- NOTE | 2024-07-03 08:40 | P.PN ---
Subjective Progress Note Date: 07/03/24 Patient main stable. She has wet-to-dry dressing at her decubitus ulcer site. She will continue local wound care. Objective - Vital Signs Vital signs: Vital Signs Temp 98.1 F 07/03/24 01:50 Pulse 66 07/03/24 01:50 Resp 15 07/03/24 01:50 BP 110/68 07/03/24 01:50 Pulse Ox 96 07/03/24 01:50 FiO2 Intake & Output 07/02/24 07/03/24 07/03/24 18:59 06:59 18:59 Intake Total 780 Output Total 1500 200 Balance -1500 580 Intake: Oral 780 Output: Urine 1500 200 Other: Voiding Method Indwelling Catheter Indwelling Catheter # Bowel Movements 1 - Labs CBC & Chem 7: 07/01/24 04:03 07/01/24 04:03 Labs: Microbiology - Last 24 Hours (Table) 06/27/24 18:50 Blood Culture Gram Stain - Final Blood Blood Culture - Final Proteus mirabilis Molecular ID
[2024-07-03 10:29] LABS: Basophils # (A) 0.03 X 10*3/uL (0.00-0.10); Basophils % (A) 0.3 %; Eosinophils # (A) 0.17 X 10*3/uL (0.04-0.35); Eosinophils % (A) 1.5 %; HCT 25.3 % (37.2-46.3); HGB 7.7 g/dL (12.0-15.0); Lymphocytes # (A) 1.54 X 10*3/uL (0.90-5.00); Lymphocytes % (A) 13.5 %; MCH 25.4 pg (27.0-32.0); MCHC 30.4 g/dL (32.0-37.0); MCV 83.5 FL (80.0-97.0); Monocytes % (A) 9.7 %; NRBC Per 100 WBC 0 X 10*3/uL (0.00-0.01); Neutrophils # (A) 8.49 X 10*3/uL (1.80-7.70); Neutrophils % (A) 74.5 %; Platelet Count 239 X 10*3/uL (140-440); RBC 3.03 X 10*6/uL (4.10-5.20); WBC 11.39 X 10*3/uL (4.50-10.00)
[2024-07-03 11:27] LABS: Erythrocyte Sedimentation Rate 29 mm/Hr (0-30)
[2024-07-03 12:19] LABS: ALT 11 U/L (8-44); AST 21 U/L (13-35); Albumin 1.6 g/dL (3.8-4.9); Albumin/Globulin Ratio 0.44 Ratio (1.60-3.17); Alkaline Phosphatase 104 U/L (41-126); BUN/Creat Ratio 37.67 Ratio (12.00-20.00); Blood Urea Nitrogen 11.3 mg/dL (9.0-27.0); Carbon Dioxide 24.9 mmol/L (21.6-31.8); Chloride 105 mmol/L (96-109); Globulin 3.6 g/dL (1.6-3.3); Glucose 71 mg/dL (70-110); Potassium 2.8 mmol/L (3.5-5.5); Sodium 139 mmol/L (135-145); Total Bilirubin <0.2 mg/dL (0.3-1.2); Total Protein 5.2 g/dL (6.2-8.2)
[2024-07-03] MEDS ORDERED: Potassium Replacement Protocol 1 EACH MISC MISCELLANE PRN (16:14)
[2024-07-03] MEDS ORDERED: Magnesium Replacement Protocol 1 EACH MISC MISCELLANE PRN (16:17)
--- NOTE | 2024-07-03 16:19 | P.PN ---
Subjective This is a pleasant 73 years old female with past medical history of multiple medical problems including atrial fibrillation, hypertension, hyperlipidemia. She was recently discharged from the hospital on 06/21 about a week ago for suspected GI bleed versus swallowing multiple episodes of epistaxis while being on Eliquis.. Patient was recently treated for perforated diverticulitis status post exploratory laparotomy with diverting colostomy with small bowel resection on 05/18/2024. Also she had sacral pressure ulcers with wound VAC. She went to [facility]. She presents this time because of her sacral pressure ulcers as wound culture showing MRSA per records, her niece who has medical background states that her culture was positive for 6 microorganisms. Patient currently is on IV vancomycin and wound VAC still in place pictures of the wounds are reviewed with the family and the daughter at bedside. Patient complains from back pain about 8/10, increased with movement but it is chronic as well At baseline she was able to walk little bit with a walker before she got her surgery for perforated ulcers and since then she was not able to walk. At baseline she could walk only for short distance as per daughter. Currently she is bedridden She denies chest pain or dyspnea. No abdominal pain vomiting or diarrhea. Her colostomy bag in place with brown stool. No headache dizziness weakness or numbness. No smoking or illicit drugs. She is hemodynamically stable. Labs reviewed showing mild leukocytosis of 12.3, hemoglobin 9.3, platelet count 452. BMP and liver enzymes were unremarkable, INR is unremarkable. C. difficile test was negative. As per family currently she is taking aspirin and Plavix while Eliquis remains on hold. Last time on discharge Eliquis was held with recommendation patient follow-up with her primary care doctor to resume it. She was discharged on aspirin 81 mg only. While currently she is taking aspirin and Plavix 06/29 Patient looks tired and weak She denies pain no breathing difficulty no chest pain or abdominal pain She underwent debridement of her sacral pressure ulcer today, with cultures pend ing and currently covered with IV vancomycin and Unasyn Also pipe maker evaluated the patient for A-fib and he recommended to continue with antiplatelet therapy, currently Plavix on hold but can be resumed surgery Several family members at bedside all questions answered Labs showed leukocytosis 13,000, hemoglobin 8.2 06/30 Patient awake but lethargic She has lower back and stay visual sacral pressure ulcer, about 13 cm in diameter and very deep into the tissue. She has somewhat poor appetite but trying to pick out hand. Her abdomen looks soft. No murmur in the heart. Breathing is equal in both sides. She has no fever and rest of vitals look stable.Creatinine 0.3. C. difficile was tested and came back negative. She has positive blood culture in the preliminary results Patient currently covered with broad-spectrum antibiotics with IV vancomycin and Unasyn which covers MRSA, gram-negative bacteria and others Family at bedside and all questions were answered 07/01 Patient improving slowly and gradually, she still generally weak, mentation at baseline, daughter at bedside, patient has little improvement. Has poor appetite patient was encouraged to eat and drink and she agrees. Vital stable, blood pressure on the low side but asymptomatic which is expected sometimes with bedridden patients. Blood culture came back positive for Proteus, currently covered with Zosyn. Patient and daughter request small dose of antidepressant, we will start Cymbalta, patient agrees A 07/02 Patient is lethargic Blood cultures positive for Proteus which is sensitive to the Zosyn she is taking based on culture sensitivity She still have some pain in her lower back after surgical debridement Patient was started for Cymbalta which helped her with the depression and back pain as well Daughter at bedside and questions were answered 07/03 Patient started feeling better today for the first time, she is less lethargic and up in bed Her pain looks better in the lower back. She is afebrile. Also WBC is 11.3, hemoglobin 7.7.Which is slightly lower than she came in but stable. We will keep monitoring Patient has low potassium which is replaced per protocol, discussed with staff We are going to repeat potassium and magnesium tonight. Objective - Vital Signs Vital signs: Vital Signs Temp 98.1 F 07/03/24 13:58 Pulse 70 07/03/24 13:58 Resp 16 07/03/24 13:58 BP 108/65 07/03/24 13:58 Pulse Ox 94 L 07/03/24 13:58 FiO2 Intake & Output 07/02/24 07/03/24 07/03/24 18:59 06:59 18:59 Intake Total 780 Output Total 1500 200 Balance -1500 580 Intake: Oral 780 Output: Urine 1500 200 Other: Voiding Method Indwelling Catheter Indwelling Catheter Indwelling Catheter # Bowel Movements 1 - Exam GENERAL: The patient is alert and oriented x3, not in any acute distress. Well developed, well nourished. HEENT: Pupils are round and equally reacting to light. EOMI. No scleral icterus. No conjunctival pallor. Normocephalic, atraumatic. No pharyngeal erythema. No thyromegaly. CARDIOVASCULAR: S1 and S2 present. No murmurs, rubs, or gallops. PULMONARY: Chest is clear to auscultation, no wheezing , no crackles. ABDOMEN: Soft, nontender, nondistended, normoactive bowel sounds. No palpable organomegaly. -MUSCULOSKELETAL: No joint swelling or deformity. 13 cm in diam. Sacral pressure ulcer, unstageable EXTREMITIES: No cyanosis, clubbing, or pedal edema. NEUROLOGICAL: Gross neurological examination did not reveal any focal deficits. SKIN: No rashes. no petechiae. - Labs CBC & Chem 7: 07/03/24 03:18 07/03/24 03:18 Labs: Abnormal Lab Results - Last 24 Hours (Table) 07/03/24 07/03/24 Range/Units 03:18 03:18 WBC 11.39 H (4.50-10.00) X 10*3/uL RBC 3.03 L (4.10-5.20) X 10*6/uL Hgb 7.7 L (12.0-15.0) g/dL Hct 25.3 L (37.2-46.3) % MCH 25.4 L (27.0-32.0) pg MCHC 30.4 L (32.0-37.0) g/dL RDW 19.0 H (11.5-14.5) % MPV 9.0 L (9.5-12.2) FL Immature Gran # 0.06 H (0.00-0.04) X 10*3/uL Neutrophils # 8.49 H (1.80-7.70) X 10*3/uL Monocytes # 1.10 H (0.20-1.00) X 10*3/uL Potassium 2.8 L (3.5-5.5) mmol/L Creatinine 0.3 L (0.6-1.5) mg/dL BUN/Creatinine Ratio 37.67 H (12.00-20.00) Ratio Calcium 7.0 L (8.7-10.3) mg/dL Total Bilirubin <0.2 L (0.3-1.2) mg/dL C-Reactive Protein 10.30 H (0.00-0.80) mg/dL Total Protein 5.2 L (6.2-8.2) g/dL Albumin 1.6 L (3.8-4.9) g/dL Globulin 3.6 H (1.6-3.3) g/dL Albumin/Globulin Ratio 0.44 L (1.60-3.17) Ratio Assessment and Plan Assessment: infected of sacral pressure ulcer, unstageable, failed outpatient therapy, s tatus post surgical debridement Bacteremia secondary to above. Blood culture growing sensitive Proteus Acute gastroenteritis, most likely reactive depression, Mild with no suicidal ideation paroxysmal A-fib, not on anticoagulation currently. Taking aspirin and Plavix Hypertension Hyperlipidemia Anemia Plan: Antibiotic was adjusted to IV Zosyn based on blood culture growing Proteus, as per ID team recommendation Follow-up final results for wound culture, follow-up blood culture Continue with normal saline 75 mL/h Surgery team on the corrections caseworker hemoglobin, replace electrolytes Add Cymbalta for depression Cardiology team on the case to help with anticoagulation and management of A-fib Lower dose of lisinopril 20 mg down to 10 mg twice daily to decrease the chances of hypotension and side effects.. Continue with metoprolol. Consult cardiology for further management Labs and medication were reviewed.. Continue same treatment. Continue with symptomatic treatment. Resume home medication. Monitor labs and vitals. DVT and GI prophylaxis. Further recommendations as per clinical course of the patient DVT prophylaxis: subcutaneous Lovenox GI Prophylaxis: Pepcid PT/OT: Pending patient mainly is bedridden Prognosis is guarded
[2024-07-03] MEDS: POTASSIUM CHLORIDE ER 20 MEQ TAB.ER PO SCH (17:59)
[2024-07-03 20:37] LABS: Magnesium 1.2 mg/dL (1.6-2.3); Potassium 2.8 mmol/L (3.5-5.1)
--- NOTE | 2024-07-03 22:02 | P.PN ---
Subjective Progress Note Date: 07/03/24 Principal diagnosis: Reason for follow-up is infected sacral pressure ulcer Patient is a 73-year-old female with a past medical history significant for hypertension hyperlipidemia [place] atrial fibrillation with recent history of perforated diverticulitis requiring laparotomy diverting colostomy patient also developed sacral pressure ulcer during that hospital stay and s ubsequently seem to have worsening of her sacral pressure ulcer patient has been brought into the hospital, the patient status post surgical debridement of this ulcer which was extended all the way down to the coccyx unfortunately no cultures were done. On today's evaluation that is 07/03/2024, the patient continues to be afebrile, the patient is on room air and breathing comfortably, the Pt denies having any chest pain or cough, the patient denies having any abdominal pain no vomiting did have output in her colostomy denies worsening pain to the sacral wound area. Patient white count slightly up to 11.39 today, creatinine 0.3 blood culture with the Proteus local cultures are currently pending Objective - Vital Signs Vital signs: Vital Signs Temp 98.1 F 07/03/24 13:58 Pulse 70 07/03/24 13:58 Resp 16 07/03/24 13:58 BP 108/65 07/03/24 13:58 Pulse Ox 94 L 07/03/24 13:58 FiO2 Intake & Output 07/02/24 07/03/24 07/03/24 18:59 06:59 18:59 Intake Total 780 Output Total 1500 200 Balance -1500 580 Intake: Oral 780 Output: Urine 1500 200 Other: Voiding Method Indwelling Catheter Indwelling Catheter Indwelling Catheter # Bowel Movements 1 - Exam GENERAL DESCRIPTION: An elderly female lying in bed in no distress RESPIRATORY SYSTEM: Unlabored breathing , decreased breath sounds at bases HEART: S1 S2 regular rate and rhythm , ABDOMEN: Soft , no tenderness Patient did have a large sacral ulcer with significant amount of slough tissue - Labs CBC & Chem 7: 07/03/24 03:18 07/03/24 20:09 Labs: Abnormal Lab Results - Last 24 Hours (Table) 07/03/24 07/03/24 Range/Units 03:18 03:18 WBC 11.39 H (4.50-10.00) X 10*3/uL RBC 3.03 L (4.10-5.20) X 10*6/uL Hgb 7.7 L (12.0-15.0) g/dL Hct 25.3 L (37.2-46.3) % MCH 25.4 L (27.0-32.0) pg MCHC 30.4 L (32.0-37.0) g/dL RDW 19.0 H (11.5-14.5) % MPV 9.0 L (9.5-12.2) FL Immature Gran # 0.06 H (0.00-0.04) X 10*3/uL Neutrophils # 8.49 H (1.80-7.70) X 10*3/uL Monocytes # 1.10 H (0.20-1.00) X 10*3/uL Potassium 2.8 L (3.5-5.5) mmol/L Creatinine 0.3 L (0.6-1.5) mg/dL BUN/Creatinine Ratio 37.67 H (12.00-20.00) Ratio Calcium 7.0 L (8.7-10.3) mg/dL Total Bilirubin <0.2 L (0.3-1.2) mg/dL C-Reactive Protein 10.30 H (0.00-0.80) mg/dL Total Protein 5.2 L (6.2-8.2) g/dL Albumin 1.6 L (3.8-4.9) g/dL Globulin 3.6 H (1.6-3.3) g/dL Albumin/Globulin Ratio 0.44 L (1.60-3.17) Ratio Assessment and Plan (1) Unstageable pressure ulcer of sacral region Current Visit: No Status: Acute Code(s): L89.150 - PRESSURE ULCER OF SACRAL REGION, UNSTAGEABLE SNOMED Code(s): 95008329033618501 (2) Sacral osteomyelitis Current Visit: Yes Status: Acute Code(s): M46.28 - OSTEOMYELITIS OF VERTEBRA, SACRAL AND SACROCOCCYGEAL REGION SNOMED Code(s): 330503020 (3) Bacteremia Current Visit: Yes Status: Acute Code(s): R78.81 - BACTEREMIA SNOMED Code(s): 4600929 Plan: 1patient presented to hospital with worsening of her sacral pressure ulcer with the patient has for more than a month now failing outpatient treatment with santyl, patient did have significant amount of necrotic and slough tissue and foul-smelling drainage and will need to cover for the polymicrobial jasmyn i ncluding gram-positive as well as gram-negative apparently outpatient culture positive for MRSA however I do not have access to those culture has not been at [facility] 2-patient is status post surgical debridement of this ulcer which per operative report was sustained down to the coccyx suspicious for sacral osteomyelitis unfortunately no OR cultures were done 3-patient did have a positive blood culture with Proteus likely source is sacral pressure ulcer, blood culture has been repeated 4patient to continue with Zosyn will need a PICC line for outpatient IV antibiotics Son at the bedside multiple questions has been answered Dictation was produced using [employer] dictation software. please excuse any grammatical, word or spelling errors. Time with Patient: Less than 30
[2024-07-04] MEDS: MAGNESIUM SULFATE-D5W PMX 1 GM in DEXTROSE/WATER 1 100ML.BAG IVPB SCH (08:01)
[2024-07-04 08:31] LABS: Basophils # (A) 0.03 X 10*3/uL (0.00-0.10); Basophils % (A) 0.3 %; Eosinophils # (A) 0.19 X 10*3/uL (0.04-0.35); Eosinophils % (A) 1.8 %; HCT 25.7 % (37.2-46.3); HGB 7.7 g/dL (12.0-15.0); Lymphocytes # (A) 1.74 X 10*3/uL (0.90-5.00); Lymphocytes % (A) 16.8 %; MCH 24.5 pg (27.0-32.0); MCV 81.8 FL (80.0-97.0); Monocytes # (A) 1.04 X 10*3/uL (0.20-1.00); Monocytes % (A) 10.1 %; NRBC Per 100 WBC 0 X 10*3/uL (0.00-0.01); Neutrophils # (A) 7.28 X 10*3/uL (1.80-7.70); Neutrophils % (A) 70.5 %; Platelet Count 275 X 10*3/uL (140-440); RBC 3.14 X 10*6/uL (4.10-5.20); RDW 19.3 % (11.5-14.5); WBC 10.33 X 10*3/uL (4.50-10.00)
[2024-07-04 09:22] LABS: Blood Urea Nitrogen 9.8 mg/dL (9.0-27.0); Calcium 7.1 mg/dL (8.7-10.3); Carbon Dioxide 19.9 mmol/L (21.6-31.8); Chloride 105 mmol/L (96-109); Glucose 71 mg/dL (70-110); Magnesium 1.2 mg/dL (1.5-2.4); Potassium 3.5 mmol/L (3.5-5.5); Sodium 139 mmol/L (135-145)
[2024-07-04] MEDS: POTASSIUM CHLORIDE ER 20 MEQ TAB.ER PO SCH (09:35)
--- NOTE | 2024-07-04 13:02 | P.PN ---
Subjective Progress Note Date: 07/04/24 Principal diagnosis: Reason for follow-up is infected sacral pressure ulcer Patient is a 73-year-old female with a past medical history significant for hypertension hyperlipidemia [place] atrial fibrillation with recent history of perforated diverticulitis requiring laparotomy diverting colostomy patient also developed sacral pressure ulcer during that hospital stay and s ubsequently seem to have worsening of her sacral pressure ulcer patient has been brought into the hospital, the patient status post surgical debridement of this ulcer which was extended all the way down to the coccyx unfortunately no cultures were done. On today's evaluation that is 07/04/2024, Patient is afebrile patient is currently on room air and denies having any shortness of breath, the patient denies any chest pain or cough, the patient denies any nausea vomiting did not have any abdominal pain and still complaining of pain to the sacral wound area. Patient white count is 10.33, creatinine 0.2 cultures obtained from the sacral wound 5 days ago has been just finalize growing same Proteus Mirabella's that grew in the blood and also growing a drug-resistant Enterobacter cloacae Objective - Vital Signs Vital signs: Vital Signs Temp 98.3 F 07/04/24 07:30 Pulse 82 07/04/24 07:30 Resp 17 07/04/24 07:30 BP 94/57 07/04/24 07:30 Pulse Ox 96 07/04/24 07:30 FiO2 Intake & Output 07/03/24 07/04/24 07/04/24 18:59 06:59 18:59 Intake Total 680 Output Total 250 550 Balance -250 130 Intake: Oral 680 Output: Urine 250 550 Other: Voiding Method Indwelling Catheter Indwelling Catheter - Exam Elderly female up in the chair in no distress No tachypnea or accessory muscle respiration use Unlabored breathing - Labs CBC & Chem 7: 07/04/24 02:22 07/04/24 02:22 Labs: Abnormal Lab Results - Last 24 Hours (Table) 07/03/24 07/04/24 07/04/24 Range/Units 20:09 02:22 02:22 WBC 10.33 H (4.50-10.00) X 10*3/uL RBC 3.14 L (4.10-5.20) X 10*6/uL Hgb 7.7 L (12.0-15.0) g/dL Hct 25.7 L (37.2-46.3) % MCH 24.5 L (27.0-32.0) pg MCHC 30.0 L (32.0-37.0) g/dL RDW 19.3 H (11.5-14.5) % MPV 9.0 L (9.5-12.2) FL Immature Gran # 0.05 H (0.00-0.04) X 10*3/uL Monocytes # 1.04 H (0.20-1.00) X 10*3/uL Potassium 2.8 L (3.5-5.1) mmol/L Carbon Dioxide 19.9 L (21.6-31.8) mmol/L Anion Gap 14.10 H (4.00-12.00) mmol/L Creatinine 0.2 L (0.6-1.5) mg/dL BUN/Creatinine Ratio 49.00 H (12.00-20.00) Ratio Calcium 7.1 L (8.7-10.3) mg/dL Magnesium 1.2 L 1.2 L (1.6-2.3) mg/dL Microbiology - Last 24 Hours (Table) 06/27/24 18:50 Gram Stain - Final Buttock Wound Culture - Final Proteus mirabilis Enterobacter cloacae Assessment and Plan (1) Unstageable pressure ulcer of sacral region Current Visit: No Status: Acute Code(s): L89.150 - PRESSURE ULCER OF SACRAL REGION, UNSTAGEABLE SNOMED Code(s): 98369845157163691 (2) Sacral osteomyelitis Current Visit: Yes Status: Acute Code(s): M46.28 - OSTEOMYELITIS OF VERTEBRA, SACRAL AND SACROCOCCYGEAL REGION SNOMED Code(s): 329664147 (3) Bacteremia Current Visit: Yes Status: Acute Code(s): R78.81 - BACTEREMIA SNOMED Code(s): 5457779 Plan: 1patient presented to hospital with worsening of her sacral pressure ulcer with the patient has for more than a month now failing outpatient treatment with santyl, patient did have significant amount of necrotic and slough tissue and foul-smelling drainage and will need to cover for the polymicrobial jasmyn i ncluding gram-positive as well as gram-negative apparently outpatient culture positive for MRSA however I do not have access to those culture has not been at [facility] 2-patient is status post surgical debridement of this ulcer which per operative report was sustained down to the coccyx suspicious for sacral osteomyelitis unfortunately no OR cultures were done 3-patient did have a positive blood culture with Proteus likely source is sacral pressure ulcer, blood culture has been repeated to document clearance 4patient also have a culture obtained subsequently from the sacral wound of 27 June got finalized after almost 7 days and just showed up in the system also growing into his resistant Enterobacter 5we will discontinue Zosyn start patient cefepime 2 g every 8-hour and oral Flagyl plan is for PICC line 6-week course of IV antibiotic therapy Dictation was produced using [email or web address] dictation software. please excuse any grammatical, word or spelling errors. Time with Patient: Less than 30
--- NOTE | 2024-07-04 13:06 | P.PN ---
Subjective Progress Note Date: 07/04/24 CHIEF COMPLAINT: Sacral decubitus ulcer HISTORY OF PRESENT ILLNESS: Patient is postop day #5 status post debridement of sacral decubitus ulcer. Patient has no new complaints. Ostomy is functioning. She has a new wound VAC placed on the midline incision of her abdomen. Patient was not a candidate for wound VAC on the sacrum. Infectious disease recommending IV antibiotics at discharge. Cultures have finalized with wound culture growing Proteus mirabilis and Enterobacter. WBC is down from 11-10.33 PHYSICAL EXAM: VITAL SIGNS: Reviewed. GENERAL: in no acute distress. HEENT: No sclera icterus. Extraocular movements grossly intact. Moist buccal mucosa. Head is atraumatic, normocephalic. ABDOMEN: Soft. Nondistended. Wound vac midline incision intact NEUROLOGIC: Alert and oriented. Cranial nerves II through XII grossly intact. ASSESSMENT: 1. Sacral decubitus ulcer status post debridement PLAN: -Continue local wound care -Discharge antibiotics per infectious disease -Continue offloading -Patient can be discharged from surgical standpoint when medically cleared Physician Carpet Cutter note has been reviewed by physician. Signing provider agrees with the documented findings, assessment, and plan of care. Objective - Vital Signs Vital signs: Vital Signs Temp 98.3 F 07/04/24 07:30 Pulse 82 07/04/24 07:30 Resp 17 07/04/24 07:30 BP 94/57 07/04/24 07:30 Pulse Ox 96 07/04/24 07:30 FiO2 Intake & Output 07/03/24 07/04/24 07/04/24 18:59 06:59 18:59 Intake Total 680 Output Total 250 550 Balance -250 130 Intake: Oral 680 Output: Urine 250 550 Other: Voiding Method Indwelling Catheter Indwelling Catheter - Labs CBC & Chem 7: 07/04/24 02:22 07/04/24 02:22 Labs: Abnormal Lab Results - Last 24 Hours (Table) 07/03/24 07/04/24 07/04/24 Range/Units 20:09 02:22 02:22 WBC 10.33 H (4.50-10.00) X 10*3/uL RBC 3.14 L (4.10-5.20) X 10*6/uL Hgb 7.7 L (12.0-15.0) g/dL Hct 25.7 L (37.2-46.3) % MCH 24.5 L (27.0-32.0) pg MCHC 30.0 L (32.0-37.0) g/dL RDW 19.3 H (11.5-14.5) % MPV 9.0 L (9.5-12.2) FL Immature Gran # 0.05 H (0.00-0.04) X 10*3/uL Monocytes # 1.04 H (0.20-1.00) X 10*3/uL Potassium 2.8 L (3.5-5.1) mmol/L Carbon Dioxide 19.9 L (21.6-31.8) mmol/L Anion Gap 14.10 H (4.00-12.00) mmol/L Creatinine 0.2 L (0.6-1.5) mg/dL BUN/Creatinine Ratio 49.00 H (12.00-20.00) Ratio Calcium 7.1 L (8.7-10.3) mg/dL Magnesium 1.2 L 1.2 L (1.6-2.3) mg/dL Microbiology - Last 24 Hours (Table) 07/03/24 03:18 Blood Culture - Preliminary Blood 06/27/24 18:50 Gram Stain - Final Buttock Wound Culture - Final Proteus mirabilis Enterobacter cloacae
[2024-07-04] MEDS: CEFEPIME 2 GM in SODIUM CHLORIDE 0.9% 100 ML IVPB SCH (15:15)
[2024-07-04] MEDS: metroNIDAZOLE 500 MG TAB PO SCH (15:17)
[2024-07-05] MEDS: SODIUM CHLORIDE 0.9% IRRIGATIO 3,000 ML IRRIGATION ONE (01:41)
--- NOTE | 2024-07-05 05:20 | P.PN ---
Subjective Progress Note Date: 07/04/24 This is a pleasant 73 years old female with past medical history of multiple medical problems including atrial fibrillation, hypertension, hyperlipidemia. She was recently discharged from the hospital on 06/21 about a week ago for suspected GI bleed versus swallowing multiple episodes of epistaxis while being on Eliquis.. Patient was recently treated for perforated diverticulitis status post exploratory laparotomy with diverting colostomy with small bowel resection on 05/18/2024. Also she had sacral pressure ulcers with wound VAC. [facility] went to [facility]. She presents this time because of her sacral pressure ulcers as wound culture showing MRSA per records, her niece who has medical background states that her culture was positive for 6 microorganisms. Patient currently is on IV vancomycin and wound VAC still in place pictures of the wounds are reviewed with the family and the daughter at bedside. Patient complains from back pain about 8/10, increased with movement but it is chronic as well At baseline she was able to walk little bit with a walker before she got her surgery for perforated ulcers and since then she was not able to walk. At baseline she could walk only for short distance as per daughter. Currently she is bedridden She denies chest pain or dyspnea. No abdominal pain vomiting or diarrhea. Her colostomy bag in place with brown stool. No headache dizziness weakness or numbness. No smoking or illicit drugs. She is hemodynamically stable. Labs reviewed showing mild leukocytosis of 12.3, hemoglobin 9.3, platelet count 452. BMP and liver enzymes were unremarkable, INR is unremarkable. C. difficile test was negative. As per family currently she is taking aspirin and Plavix while Eliquis remains on hold. Last time on discharge Eliquis was held with recommendation patient follow-up with her primary care doctor to resume it. She was discharged on aspirin 81 mg only. While currently she is taking aspirin and Plavix 06/29 Patient looks tired and weak She denies pain no breathing difficulty no chest pain or abdominal pain She underwent debridement of her sacral pressure ulcer today, with cultures pending and currently covered with IV vancomycin and Unasyn Also photostatic copy maker evaluated the patient for A-fib and he recommended to continue with antiplatelet therapy, currently Plavix on hold but can be resumed surgery Several family members at bedside all questions answered Labs showed leukocytosis 13,000, hemoglobin 8.2 06/30 Patient awake but lethargic She has lower back and stay visual sacral pressure ulcer, about 13 cm in diameter and very deep into the tissue. 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 Her abdomen looks soft. No murmur in the heart. Breathing is equal in both sides. She has no fever and rest of vitals look stable.Creatinine 0.3. C. difficile was tested and came back negative. She has positive blood culture in the preliminary results Patient currently covered with broad-spectrum antibiotics with IV vancomycin and Unasyn which covers MRSA, gram-negative bacteria and others Family at bedside and all questions were answered 07/01 Patient improving slowly and gradually, she still generally weak, mentation at baseline, daughter at bedside, patient has little improvement. Has poor appetite patient was encouraged to eat and drink and she agrees. Vital stable, blood pressure on the low side but asymptomatic which is expected sometimes with bedridden patients. Blood culture came back positive for Proteus, currently covered with Zosyn. Patient and daughter request small dose of antidepressant, we will start Cymbalta, patient agrees A 07/02 Patient is lethargic Blood cultures positive for Proteus which is sensitive to the Zosyn she is taking based on culture sensitivity She still have some pain in her lower back after surgical debridement Patient was started for Cymbalta which helped her with the depression and back pain as well Daughter at bedside and questions were answered 07/03 Patient started feeling better today for the first time, she is less lethargic and up in bed Her pain looks better in the lower back. She is afebrile. Also WBC is 11.3, hemoglobin 7.7.Which is slightly lower than she came in but stable. We will keep monitoring Patient has low potassium which is replaced per protocol, discussed with staff We are going to repeat potassium and magnesium tonight. 07/04/2024 Patient is seen in follow-up today awake, alert and oriented x 3 with daughter at the bedside. Patient reports she is feeling a little bit better although continues to be extremely weak and reports has not been walking in months. Patient does have tenderness with position changes and movement of the sacral area. Per daughter at the bedside plan is for patient to return home. Ordering a hospital bed as patient needs frequent position changes due to significant sacral ulcer with some osteomyelitis. Patient is afebrile and plan is for patient to receive a PICC line with IV antibiotics outpatient. Will discuss further with case management regarding discharge planning. Review of systems: Constitutional: No reports of fatigue, fever, or chills Cardiovascular: No reports of chest pain or palpitations Respiratory: No reports of shortness of breath or cough GI: No reports of nausea, vomiting, or diarrhea, eating a little more : No reports of dysuria or retention Neurovascular: reports of continued weakness and inability to ambulate All medications have been reviewed Physical exam: GENERAL: The patient is alert and oriented x3, not in any acute distress. Well d eveloped, elderly appearing HEENT: Pupils are round and equally reacting to light. EOMI. No scleral icterus. No conjunctival pallor. Normocephalic, atraumatic. No pharyngeal erythema. No thyromegaly. CARDIOVASCULAR: S1 and S2 present. No murmurs, rubs, or gallops. PULMONARY: Chest is clear to auscultation, no wheezing , no crackles. ABDOMEN: Soft, nontender, nondistended, normoactive bowel sounds. No palpable organomegaly. Ostomy noted MUSCULOSKELETAL: No joint swelling or deformity. 13 cm in diam. Sacral pressure ulcer, unstageable, status post debridement EXTREMITIES: No cyanosis, clubbing, or pedal edema. NEUROLOGICAL: Gross neurological examination did not reveal any focal deficits. Diffusely weak SKIN: No rashes. no petechiae. Assessment: infected sacral pressure ulcer, unstageable, failed outpatient therapy, status post surgical debridement, cultures growing Proteus as well as Enterococcus Bacteremia secondary to above. Repeat blood culture negative Acute gastroenteritis, most likely reactive, improving depression, Mild with no suicidal ideation paroxysmal A-fib, not on anticoagulation currently. Taking aspirin and Plavix Hypertension Hyperlipidemia Anemia GI prophylaxis DVT prophylaxis Full code Plan: Continue antibiotic therapy with infectious disease following as blood culture growing Proteus, repeat blood culture negative. As per ID team recommendation, patient will receive a PICC line and continue on IV antibiotics for 6 weeks course as wound culture showing Proteus along with Enterococcus Continue with normal saline 75 mL/h Surgery team on the case status post debridement with no plans for any further surgical intervention and has been cleared once cleared by infectious disease for discharge Monitor hemoglobin, replace electrolytes per protocol. Magnesium and potassium are low and will replace Continue Cymbalta for depression Cardiology team following recommending outpatient follow-up Lower dose of lisinopril 20 mg down to 10 mg twice daily to decrease the chances of hypotension and side effects.. Continue with metoprolol. Will discuss further with case management regarding discharge planning. A hospital bed is being ordered as patient requires frequent position changes as patient has significant unstageable sacral decubitus ulcer that is approximately 13 cm in diameter. Patient will require an offloading air mattress to assist with wound healing as patient was also noted to have osteomyelitis of this sacral ulcer. Due to multiple complex medical issues, prognosis is guarded Discussed possible discharge planning in the next 24 to 48 hours The impression and plan of care has been dictated by Lisy Jones, Nurse Practitioner as directed. Dr. Joon MD I have performed a history and examination and MDM of this patient, discussed the same with the dictator, and agree with the dictator's assessment and plan as written ,documented as a scribe. Based on total visit time, I have performed more than 50% of the visit. Objective - Vital Signs Vital signs: Vital Signs Temp 98.3 F 07/04/24 07:30 Pulse 82 07/04/24 07:30 Resp 17 07/04/24 07:30 BP 94/57 07/04/24 07:30 Pulse Ox 96 07/04/24 07:30 FiO2 Intake & Output 07/03/24 07/04/24 07/04/24 18:59 06:59 18:59 Intake Total 680 Output Total 250 550 Balance -250 130 Intake: Oral 680 Output: Urine 250 550 Other: Voiding Method Indwelling Catheter Indwelling Catheter - Labs CBC & Chem 7: 07/04/24 02:22 07/04/24 02:22 Labs: Abnormal Lab Results - Last 24 Hours (Table) 07/03/24 07/03/24 07/03/24 Range/Units 03:18 03:18 20:09 WBC 11.39 H (4.50-10.00) X 10*3/uL RBC 3.03 L (4.10-5.20) X 10*6/uL Hgb 7.7 L (12.0-15.0) g/dL Hct 25.3 L (37.2-46.3) % MCH 25.4 L (27.0-32.0) pg MCHC 30.4 L (32.0-37.0) g/dL RDW 19.0 H (11.5-14.5) % MPV 9.0 L (9.5-12.2) FL Immature Gran # 0.06 H (0.00-0.04) X 10*3/uL Neutrophils # 8.49 H (1.80-7.70) X 10*3/uL Monocytes # 1.10 H (0.20-1.00) X 10*3/uL Potassium 2.8 L 2.8 L (3.5-5.5) mmol/L Carbon Dioxide (21.6-31.8) mmol/L Anion Gap (4.00-12.00) mmol/L Creatinine 0.3 L (0.6-1.5) mg/dL BUN/Creatinine Ratio 37.67 H (12.00-20.00) Ratio Calcium 7.0 L (8.7-10.3) mg/dL Magnesium 1.2 L (1.6-2.3) mg/dL Total Bilirubin <0.2 L (0.3-1.2) mg/dL C-Reactive Protein 10.30 H (0.00-0.80) mg/dL Total Protein 5.2 L (6.2-8.2) g/dL Albumin 1.6 L (3.8-4.9) g/dL Globulin 3.6 H (1.6-3.3) g/dL Albumin/Globulin Ratio 0.44 L (1.60-3.17) Ratio 07/04/24 07/04/24 Range/Units 02:22 02:22 WBC 10.33 H (4.50-10.00) X 10*3/uL RBC 3.14 L (4.10-5.20) X 10*6/uL Hgb 7.7 L (12.0-15.0) g/dL Hct 25.7 L (37.2-46.3) % MCH 24.5 L (27.0-32.0) pg MCHC 30.0 L (32.0-37.0) g/dL RDW 19.3 H (11.5-14.5) % MPV 9.0 L (9.5-12.2) FL Immature Gran # 0.05 H (0.00-0.04) X 10*3/uL Neutrophils # (1.80-7.70) X 10*3/uL Monocytes # 1.04 H (0.20-1.00) X 10*3/uL Potassium (3.5-5.5) mmol/L Carbon Dioxide 19.9 L (21.6-31.8) mmol/L Anion Gap 14.10 H (4.00-12.00) mmol/L Creatinine 0.2 L (0.6-1.5) mg/dL BUN/Creatinine Ratio 49.00 H (12.00-20.00) Ratio Calcium 7.1 L (8.7-10.3) mg/dL Magnesium 1.2 L (1.6-2.3) mg/dL Total Bilirubin (0.3-1.2) mg/dL C-Reactive Protein (0.00-0.80) mg/dL Total Protein (6.2-8.2) g/dL Albumin (3.8-4.9) g/dL Globulin (1.6-3.3) g/dL Albumin/Globulin Ratio (1.60-3.17) Ratio
[2024-07-05 06:33] LABS: Glucose,Whole Blood 83 mg/dL (70-110)
[2024-07-05 08:52] LABS: Basophils # (A) 0.04 X 10*3/uL (0.00-0.10); Basophils % (A) 0.3 %; Eosinophils # (A) 0.15 X 10*3/uL (0.04-0.35); Eosinophils % (A) 1.3 %; HCT 25.4 % (37.2-46.3); HGB 7.5 g/dL (12.0-15.0); Lymphocytes # (A) 2.04 X 10*3/uL (0.90-5.00); Lymphocytes % (A) 17.1 %; MCH 24.5 pg (27.0-32.0); MCHC 29.5 g/dL (32.0-37.0); Monocytes # (A) 1.09 X 10*3/uL (0.20-1.00); Monocytes % (A) 9.1 %; NRBC Per 100 WBC 0 X 10*3/uL (0.00-0.01); Neutrophils # (A) 8.55 X 10*3/uL (1.80-7.70); Neutrophils % (A) 71.7 %; Platelet Count 263 X 10*3/uL (140-440); RBC 3.06 X 10*6/uL (4.10-5.20); RDW 19.5 % (11.5-14.5); WBC 11.93 X 10*3/uL (4.50-10.00)
[2024-07-05 10:32] LABS: Carbon Dioxide 22.1 mmol/L (21.6-31.8); Chloride 106 mmol/L (96-109); Glucose 75 mg/dL (70-110); Potassium 3.8 mmol/L (3.5-5.5); Sodium 138 mmol/L (135-145)
--- NOTE | 2024-07-05 14:32 | P.PN ---
Subjective Progress Note Date: 07/05/24 CHIEF COMPLAINT: Sacral decubitus ulcer HISTORY OF PRESENT ILLNESS: Patient is postop day #6 status post debridement of sacral decubitus ulcer. Patient has no new complaints. Ostomy is functioning. Afebrile. WBC did go up from 10.3-11.9 Hgb 7.5. Infectious disease arranging IV antibiotics at discharge PHYSICAL EXAM: VITAL SIGNS: Reviewed. GENERAL: in no acute distress. ABDOMEN: Soft. Nondistended. Wound vac midline incision intact. Ostomy with stool NEUROLOGIC: Alert and oriented. Cranial nerves II through XII grossly intact. ASSESSMENT: 1. Sacral decubitus ulcer status post debridement PLAN: -Continue local wound care -Discharge antibiotics per infectious disease -Continue offloading -Patient can be discharged from surgical standpoint when medically cleared Physician Supervisor Baking note has been reviewed by physician. Signing provider agrees with the documented findings, assessment, and plan of care. Objective - Vital Signs Vital signs: Vital Signs Temp 97.7 F 07/05/24 07:35 Pulse 61 07/05/24 07:35 Resp 16 07/05/24 07:35 BP 112/70 07/05/24 07:35 Pulse Ox 95 07/05/24 07:35 FiO2 Intake & Output 07/04/24 07/05/24 07/05/24 18:59 06:59 18:59 Output Total 700 Balance -700 Weight 68.039 kg Output: Urine 700 Other: Voiding Method Indwelling Catheter Indwelling Catheter Indwelling Catheter - Labs CBC & Chem 7: 07/05/24 02:38 07/05/24 06:00 Labs: Abnormal Lab Results - Last 24 Hours (Table) 07/05/24 07/05/24 Range/Units 02:38 06:00 WBC 11.93 H (4.50-10.00) X 10*3/uL RBC 3.06 L (4.10-5.20) X 10*6/uL Hgb 7.5 L (12.0-15.0) g/dL Hct 25.4 L (37.2-46.3) % MCH 24.5 L (27.0-32.0) pg MCHC 29.5 L (32.0-37.0) g/dL RDW 19.5 H (11.5-14.5) % MPV 9.0 L (9.5-12.2) FL Immature Gran # 0.06 H (0.00-0.04) X 10*3/uL Neutrophils # 8.55 H (1.80-7.70) X 10*3/uL Monocytes # 1.09 H (0.20-1.00) X 10*3/uL BUN 7.0 L (9.0-27.0) mg/dL Creatinine 0.2 L (0.6-1.5) mg/dL BUN/Creatinine Ratio 35.00 H (12.00-20.00) Ratio Calcium 7.0 L (8.7-10.3) mg/dL Microbiology - Last 24 Hours (Table) 07/03/24 03:18 Blood Culture - Preliminary Blood 06/27/24 18:50 Gram Stain - Final Buttock Wound Culture - Final Proteus mirabilis Enterobacter cloacae
--- NOTE | 2024-07-05 14:44 | P.PN ---
Subjective Progress Note Date: 07/05/24 This is a pleasant 73 years old female with past medical history of multiple medical problems including atrial fibrillation, hypertension, hyperlipidemia. She was recently discharged from the hospital on 06/21 about a week ago for suspected GI bleed versus swallowing multiple episodes of epistaxis while being on Eliquis.. Patient was recently treated for perforated diverticulitis status post exploratory laparotomy with diverting colostomy with small bowel resection on 05/18/2024. Also she had sacral pressure ulcers with wound VAC. [facility] She presents this time because of her sacral pressure ulcers as wound culture showing MRSA per records, her niece who has medical background states that her culture was positive for 6 microorganisms. Patient currently is on IV vancomycin and wound VAC still in place pictures of the wounds are reviewed with the family and the daughter at bedside. Patient complains from back pain about 8/10, increased with movement but it is chronic as well At baseline she was able to walk little bit with a walker before she got her surgery for perforated ulcers and since then she was not able to walk. At baseline she could walk only for short distance as per daughter. Currently she is bedridden She denies chest pain or dyspnea. No abdominal pain vomiting or diarrhea. Her colostomy bag in place with brown stool. No headache dizziness weakness or numbness. No smoking or illicit drugs. She is hemodynamically stable. Labs reviewed showing mild leukocytosis of 12.3, hemoglobin 9.3, platelet count 452. BMP and liver enzymes were unremarkable, INR is unremarkable. C. difficile test was negative. As per family currently she is taking aspirin and Plavix while Eliquis remains on hold. Last time on discharge Eliquis was held with recommendation patient follow-up with her primary care doctor to resume it. She was discharged on aspirin 81 mg only. While currently she is taking aspirin and Plavix 06/29 Patient looks tired and weak She denies pain no breathing difficulty no chest pain or abdominal pain She underwent debridement of her sacral pressure ulcer today, with cultures pending and currently covered with IV vancomycin and Unasyn Also fur mixer evaluated the patient for A-fib and he recommended to continue with antiplatelet therapy, currently Plavix on hold but can be resumed surgery Several family members at bedside all questions answered Labs showed leukocytosis 13,000, hemoglobin 8.2 06/30 Patient awake but lethargic She has lower back and stay visual sacral pressure ulcer, about 13 cm in diameter and very deep into the tissue. 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 Her abdomen looks soft. No murmur in the heart. Breathing is equal in both sides. She has no fever and rest of vitals look stable.Creatinine 0.3. C. difficile was tested and came back negative. She has positive blood culture in the preliminary results Patient currently covered with broad-spectrum antibiotics with IV vancomycin and Unasyn which covers MRSA, gram-negative bacteria and others Family at bedside and all questions were answered 07/01 Patient improving slowly and gradually, she still generally weak, mentation at baseline, daughter at bedside, patient has little improvement. Has poor appetite patient was encouraged to eat and drink and she agrees. Vital stable, blood pressure on the low side but asymptomatic which is expected sometimes with bedridden patients. Blood culture came back positive for Proteus, currently covered with Zosyn. Patient and daughter request small dose of antidepressant, we will start Cymbalta, patient agrees A 07/02 Patient is lethargic Blood cultures positive for Proteus which is sensitive to the Zosyn she is taking based on culture sensitivity She still have some pain in her lower back after surgical debridement Patient was started for Cymbalta which helped her with the depression and back pain as well Daughter at bedside and questions were answered 07/03 Patient started feeling better today for the first time, she is less lethargic and up in bed Her pain looks better in the lower back. She is afebrile. Also WBC is 11.3, hemoglobin 7.7.Which is slightly lower than she came in but stable. We will keep monitoring Patient has low potassium which is replaced per protocol, discussed with staff We are going to repeat potassium and magnesium tonight. 07/04/2024 Patient is seen in follow-up today awake, alert and oriented x 3 with daughter at the bedside. Patient reports she is feeling a little bit better although continues to be extremely weak and reports has not been walking in months. Patient does have tenderness with position changes and movement of the sacral area. Per daughter at the bedside plan is for patient to return home. Ordering a hospital bed as patient needs frequent position changes due to significant sacral ulcer with some osteomyelitis. Patient is afebrile and plan is for patient to receive a PICC line with IV antibiotics outpatient. Will discuss further with case management regarding discharge planning. 07/05/2024 Patient is seen and evaluated in follow-up today with no acute overnight issues noted. Patient reports to feeling slightly improved and plan is for home with home care and continue IV antibiotic therapy. Patient will receive a PICC line and will continue on 6 weeks of antibiotics per ID recommendations with continued wound care and close outpatient follow-up. [facility] as patient has significant unstageable sacral ulcer with noted osteomyelitis. Patient requires frequent position changes and offloading that cannot be achieved on a regular hospital bed mattress. Patient is afebrile with no reports of chest pain or shortness of breath. Review of systems: Constitutional: No reports of fatigue, fever, or chills Cardiovascular: No reports of chest pain or palpitations Respiratory: No reports of shortness of breath or cough GI: No reports of nausea, vomiting, or diarrhea, eating a little more : No reports of dysuria or retention Neurovascular: reports of continued weakness and inability to ambulate All medications have been reviewed Physical exam: GENERAL: The patient is alert and oriented x3, not in any acute distress. Well developed, elderly appearing HEENT: Pupils are round and equally reacting to light. EOMI. No scleral icterus. No conjunctival pallor. Normocephalic, atraumatic. No pharyngeal erythema. No thyromegaly. CARDIOVASCULAR: S1 and S2 present. No murmurs, rubs, or gallops. PULMONARY: Chest is clear to auscultation, no wheezing , no crackles. ABDOMEN: Soft, nontender, nondistended, normoactive bowel sounds. No palpable organomegaly. Ostomy noted MUSCULOSKELETAL: No joint swelling or deformity. 13 cm in diam. Sacral pressure ulcer, unstageable, status post debridement EXTREMITIES: No cyanosis, clubbing, or pedal edema. NEUROLOGICAL: Gross neurological examination did not reveal any focal deficits. Diffusely weak SKIN: No rashes. no petechiae. Assessment: infected sacral pressure ulcer, unstageable, failed outpatient therapy, status post surgical debridement, cultures growing Proteus as well as Enterococcus Bacteremia secondary to above. Repeat blood culture negative Acute gastroenteritis, most likely reactive, improving depression, Mild with no suicidal ideation paroxysmal A-fib, not on anticoagulation currently. Taking aspirin and Plavix Hypertension Hyperlipidemia Anemia GI prophylaxis DVT prophylaxis Full code Plan: Continue antibiotic therapy with infectious disease following as blood culture growing Proteus, repeat blood culture negative. As per ID team recommendation, patient will receive a PICC line and continue on IV antibiotics for 6 weeks course as wound culture showing Proteus along with Enterococcus Surgery team on the case status post debridement with no plans for any further surgical intervention and has been cleared once cleared by infectious disease for discharge Monitor hemoglobin, replace electrolytes per protocol. Magnesium and potassium are improved after replacement Continue Cymbalta for depression Cardiology team following recommending outpatient follow-up Lower dose of lisinopril 20 mg down to 10 mg twice daily to decrease the chances of hypotension and side effects.. Continue with metoprolol. Will discuss further with case management regarding discharge planning. A hospital bed has been ordered as patient requires frequent position changes as patient has significant unstageable sacral decubitus ulcer that is approximately 13 cm in diameter. Patient will require an offloading air mattress to assist with wound healing as patient was also noted to have osteomyelitis of this sacral ulcer. Due to multiple complex medical issues, prognosis is guarded Discussed possible discharge planning in the next 24 to 48 hours The impression and plan of care has been dictated by Lisy Jones, Nurse Practitioner as directed. Dr. Joon MD I have performed a history and examination and MDM of this patient, discussed the same with the dictator, and agree with the dictator's assessment and plan as written ,documented as a scribe. Based on total visit time, I have performed more than 50% of the visit. Objective - Vital Signs Vital signs: Vital Signs Temp 97.7 F 07/05/24 07:35 Pulse 61 07/05/24 07:35 Resp 16 07/05/24 07:35 BP 112/70 07/05/24 07:35 Pulse Ox 95 07/05/24 07:35 FiO2 Intake & Output 07/04/24 07/05/24 07/05/24 18:59 06:59 18:59 Output Total 700 Balance -700 Weight 68.039 kg Output: Urine 700 Other: Voiding Method Indwelling Catheter Indwelling Catheter Indwelling Catheter - Labs CBC & Chem 7: 07/05/24 02:38 07/05/24 06:00 Labs: Abnormal Lab Results - Last 24 Hours (Table) 07/05/24 07/05/24 Range/Units 02:38 06:00 WBC 11.93 H (4.50-10.00) X 10*3/uL RBC 3.06 L (4.10-5.20) X 10*6/uL Hgb 7.5 L (12.0-15.0) g/dL Hct 25.4 L (37.2-46.3) % MCH 24.5 L (27.0-32.0) pg MCHC 29.5 L (32.0-37.0) g/dL RDW 19.5 H (11.5-14.5) % MPV 9.0 L (9.5-12.2) FL Immature Gran # 0.06 H (0.00-0.04) X 10*3/uL Neutrophils # 8.55 H (1.80-7.70) X 10*3/uL Monocytes # 1.09 H (0.20-1.00) X 10*3/uL BUN 7.0 L (9.0-27.0) mg/dL Creatinine 0.2 L (0.6-1.5) mg/dL BUN/Creatinine Ratio 35.00 H (12.00-20.00) Ratio Calcium 7.0 L (8.7-10.3) mg/dL Microbiology - Last 24 Hours (Table) 07/03/24 03:18 Blood Culture - Preliminary Blood 06/27/24 18:50 Gram Stain - Final Buttock Wound Culture - Final Proteus mirabilis Enterobacter cloacae
--- NOTE | 2024-07-05 20:54 | P.GSCN ---
History of Present Illness Consult date: 07/05/24 Reason for Consult: Hematuria Requesting physician: Wu E Sheet History of present illness: Patient is a 73-year-old white female who presented with perforated diverticulitis in early May, for which she underwent exploratory laparotomy with small bowel resection and diverting colostomy. She has a sacral pressure ulcer, for which she recently underwent debridement. Other medical problems include atrial fibrillation, hypertension, and hyperlipidemia. She has an indwelling Duarte catheter to aid in healing of the sacral ulcer, as she was incontinent. She was noted to have hematuria this morning, but this has resolved. There is a questionable history of hematuria during a previous hospitalization. She has recently received Lovenox, but this is currently being held. CT scan performed on June 14 shows a 3 to 4 mm calculus within each kidney. 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 The bladder appears normal. Review of Systems - Cardiovascular Reports high blood pressure - Genitourinary Genitourinary: Reports as per HPI Past Medical History Past Medical History: Atrial Fibrillation, Hyperlipidemia, Hypertension, Myocardial Infarction (CT) Additional Past Medical History / Comment(s): stage 4 pressure ulcer on buttocks Last Myocardial Infarction Date:: 09/07/2023 History of Any Multi-Drug Resistant Organisms: MRSA Year Discovered:: 06/27/24 MDRO Source:: coccyx Past Surgical History: Heart Catheterization With Stent Additional Past Surgical History / Comment(s): Cardiac stents, perferated bowel with ostomy Past Anesthesia/Blood Transfusion Reactions: No Reported Reaction Date of Last Stent Placement:: 09/07/2023 Past Psychological History: No Psychological Hx Reported Smoking Status: Never smoker Past Alcohol Use History: None Reported Past Drug Use History: None Reported Medications and Allergies Home Medications Medication Instructions Recorded Confirmed Type Aspirin EC [Ecotrin Low Dose] 81 mg PO DAILY 12/02/17 06/27/24 History Atorvastatin [Lipitor] 40 mg PO DAILY #90 tab 09/11/23 06/27/24 Rx Empagliflozin [Jardiance] 10 mg PO DAILY 04/15/24 06/27/24 History Nitroglycerin Sl Tabs [Nitrostat] 0.4 mg SL Q5M PRN 05/09/24 06/27/24 History Collagenase [Santyl Ointment] 1 applic TOPICAL DAILY 06/15/24 06/27/24 History Clopidogrel [Plavix] 75 mg PO DAILY 06/27/24 06/27/24 History Levofloxacin [Levaquin] 500 mg PO DAILY 06/27/24 06/27/24 History Metoprolol Succinate [Metoprolol 25 mg PO BID 06/27/24 06/27/24 History Succinate ER] Prochlorperazine [Compazine] 10 mg PO Q6H PRN 06/27/24 06/27/24 History Spironolactone [Aldactone] 25 mg PO DAILY 06/27/24 06/27/24 History lisinopriL [Zestril] 20 mg PO BID 06/27/24 06/27/24 History oxyCODONE-APAP 5-325MG [Percocet 1 tab PO Q6HR PRN 06/27/24 06/27/24 History 5-325 mg] Allergies Allergy/AdvReac Type Severity Reaction Status Date / Time Iodinated Contrast Media Allergy Wheezing/hi Verified 06/27/24 20:23 ves iodine Allergy Wheezing/hi Verified 06/27/24 20:23 ves Surgical - Exam Vital Signs Temp Pulse Resp BP Pulse Ox 99.3 F 55 L 18 108/90 96 06/27/24 17:11 06/27/24 17:11 06/27/24 17:11 06/27/24 17:11 06/27/24 17:11 - General well developed, well nourished, no distress - Respiratory normal respiratory effort - Psychiatric oriented to time, oriented to person, oriented to place, speech is normal, memory intact Results - Labs 07/05/24 02:38 07/05/24 06:00 Abnormal Lab Results - Last 24 Hours (Table) 07/05/24 07/05/24 Range/Units 02:38 06:00 WBC 11.93 H (4.50-10.00) X 10*3/uL RBC 3.06 L (4.10-5.20) X 10*6/uL Hgb 7.5 L (12.0-15.0) g/dL Hct 25.4 L (37.2-46.3) % MCH 24.5 L (27.0-32.0) pg MCHC 29.5 L (32.0-37.0) g/dL RDW 19.5 H (11.5-14.5) % MPV 9.0 L (9.5-12.2) FL Immature Gran # 0.06 H (0.00-0.04) X 10*3/uL Neutrophils # 8.55 H (1.80-7.70) X 10*3/uL Monocytes # 1.09 H (0.20-1.00) X 10*3/uL BUN 7.0 L (9.0-27.0) mg/dL Creatinine 0.2 L (0.6-1.5) mg/dL BUN/Creatinine Ratio 35.00 H (12.00-20.00) Ratio Calcium 7.0 L (8.7-10.3) mg/dL Microbiology - Last 24 Hours (Table) 07/03/24 03:18 Blood Culture - Preliminary Blood Diabetes panel 07/05/24 Range/Units 06:00 Sodium 138 (135-145) mmol/L Potassium 3.8 (3.5-5.5) mmol/L Chloride 106 (96-109) mmol/L Carbon Dioxide 22.1 (21.6-31.8) mmol/L BUN 7.0 L (9.0-27.0) mg/dL Creatinine 0.2 L (0.6-1.5) mg/dL Glucose 75 (70-110) mg/dL Calcium 7.0 L (8.7-10.3) mg/dL Calcium panel 07/05/24 Range/Units 06:00 Calcium 7.0 L (8.7-10.3) mg/dL Pituitary panel 07/05/24 Range/Units 06:00 Sodium 138 (135-145) mmol/L Potassium 3.8 (3.5-5.5) mmol/L Chloride 106 (96-109) mmol/L Carbon Dioxide 22.1 (21.6-31.8) mmol/L BUN 7.0 L (9.0-27.0) mg/dL Creatinine 0.2 L (0.6-1.5) mg/dL Glucose 75 (70-110) mg/dL Calcium 7.0 L (8.7-10.3) mg/dL Adrenal panel 07/05/24 Range/Units 06:00 Sodium 138 (135-145) mmol/L Potassium 3.8 (3.5-5.5) mmol/L Chloride 106 (96-109) mmol/L Carbon Dioxide 22.1 (21.6-31.8) mmol/L BUN 7.0 L (9.0-27.0) mg/dL Creatinine 0.2 L (0.6-1.5) mg/dL Glucose 75 (70-110) mg/dL Calcium 7.0 L (8.7-10.3) mg/dL - Imaging CT scan - abdomen: report reviewed, image reviewed Assessment and Plan (1) Gross hematuria Current Visit: Yes Status: Acute Code(s): R31.0 - GROSS HEMATURIA SNOMED Code(s): 578155397 (2) Calculus of kidney Current Visit: Yes Status: Acute Code(s): N20.0 - CALCULUS OF KIDNEY SNOMED Code(s): 68993945 Plan: The patient was noted to have hematuria earlier today, but the Duarte catheter is now draining clear yellow urine. The CT scan shows bilateral small nonobstructing renal calculi, which may be the source of the hematuria. However, I believe it is more likely that the hematuria is the result of Duarte catheter trauma. The catheter should be removed when no longer needed. I explained to the patient and her daughter that if there is evidence of hematuria following removal of the Duarte catheter, cystoscopy should be performed to rule out intravesical pathology. They were given my card to contact me if she experiences hematuria in the future. Please notify me if I can be of any furth er assistance. Time with Patient: Greater than 30
--- NOTE | 2024-07-05 22:46 | P.PN ---
Subjective Progress Note Date: 07/05/24 Principal diagnosis: Reason for follow-up is infected sacral pressure ulcer Patient is a 73-year-old female with a past medical history significant for hypertension hyperlipidemia [place] atrial fibrillation with recent history of perforated diverticulitis requiring laparotomy diverting colostomy patient also developed sacral pressure ulcer during that hospital stay and s ubsequently seem to have worsening of her sacral pressure ulcer patient has been brought into the hospital, the patient status post surgical debridement of this ulcer which was extended all the way down to the coccyx unfortunately no cultures were done. On today's evaluation that is 07/05/2024, patient has been afebrile, patient is breathing comfortably and is currently on room air, patient denies having any significant cough no chest pain, patient denies nausea vomiting or diarrhea and no abdominal pain or worsening pain to the sacral wound. Patient white count is 11.93 creatinine 0.2 blood culture repeat has been negative so far Objective - Vital Signs Vital signs: Vital Signs Temp 97.7 F 07/05/24 07:35 Pulse 61 07/05/24 07:35 Resp 16 07/05/24 07:35 BP 112/70 07/05/24 07:35 Pulse Ox 95 07/05/24 07:35 FiO2 Intake & Output 07/04/24 07/05/24 07/05/24 18:59 06:59 18:59 Output Total 700 Balance -700 Weight 68.039 kg Output: Urine 700 Other: Voiding Method Indwelling Catheter Indwelling Catheter Indwelling Catheter - Exam Elderly female up in the chair in no distress No tachypnea or accessory muscle respiration use Unlabored breathing - Labs CBC & Chem 7: 07/05/24 02:38 07/05/24 06:00 Labs: Abnormal Lab Results - Last 24 Hours (Table) 07/05/24 07/05/24 Range/Units 02:38 06:00 WBC 11.93 H (4.50-10.00) X 10*3/uL RBC 3.06 L (4.10-5.20) X 10*6/uL Hgb 7.5 L (12.0-15.0) g/dL Hct 25.4 L (37.2-46.3) % MCH 24.5 L (27.0-32.0) pg MCHC 29.5 L (32.0-37.0) g/dL RDW 19.5 H (11.5-14.5) % MPV 9.0 L (9.5-12.2) FL Immature Gran # 0.06 H (0.00-0.04) X 10*3/uL Neutrophils # 8.55 H (1.80-7.70) X 10*3/uL Monocytes # 1.09 H (0.20-1.00) X 10*3/uL BUN 7.0 L (9.0-27.0) mg/dL Creatinine 0.2 L (0.6-1.5) mg/dL BUN/Creatinine Ratio 35.00 H (12.00-20.00) Ratio Calcium 7.0 L (8.7-10.3) mg/dL Microbiology - Last 24 Hours (Table) 07/03/24 03:18 Blood Culture - Preliminary Blood 06/27/24 18:50 Gram Stain - Final Buttock Wound Culture - Final Proteus mirabilis Enterobacter cloacae Assessment and Plan (1) Unstageable pressure ulcer of sacral region Current Visit: No Status: Acute Code(s): L89.150 - PRESSURE ULCER OF SACRAL REGION, UNSTAGEABLE SNOMED Code(s): 33181776983709220 (2) Sacral osteomyelitis Current Visit: Yes Status: Acute Code(s): M46.28 - OSTEOMYELITIS OF VERTEBRA , SACRAL AND SACROCOCCYGEAL REGION SNOMED Code(s): 507263652 (3) Bacteremia Current Visit: Yes Status: Acute Code(s): R78.81 - BACTEREMIA SNOMED Code(s): 3285907 Plan: 1patient presented to hospital with worsening of her sacral pressure ulcer with the patient has for more than a month now failing outpatient treatment with santyl, patient did have significant amount of necrotic and slough tissue and foul-smelling drainage and will need to cover for the polymicrobial jasmyn including gram-positive as well as gram-negative apparently outpatient culture positive for MRSA however I do not have access to those culture has not been at [facility] 2-patient is status post surgical debridement of this ulcer which per operative report was sustained down to the coccyx suspicious for sacral osteomyelitis unfortunately no OR cultures were done 3-patient did have a positive blood culture with Proteus likely source is sacral pressure ulcer, blood culture has been repeated and so far negative 4patient also have a culture obtained subsequently from the sacral wound of 27 June got finalized after almost 7 days and just showed up in the system also growing drug resistant Enterobacter 5patient to continue with cefepime 2 g every 8-hour and oral Flagyl, plan is for PICC line 6-week course of IV antibiotic therapy, once cleared by other optimization consultant Dictation was produced using [facility] dictation software. please excuse any grammatical, word or spelling errors., Time with Patient: Less than 30
[2024-07-06 07:11] VITALS: PULSE 56; TEMP 97.8
[2024-07-06 14:08] VITALS: BP 124/68; RESP 17
--- NOTE | 2024-07-06 14:43 | P.PN ---
Subjective Progress Note Date: 07/06/24 CHIEF COMPLAINT: Sacral decubitus ulcer HISTORY OF PRESENT ILLNESS: Patient is postop day #7 status post debridement of sacral decubitus ulcer. Patient has no new complaints. Ostomy is functioning. She received her PICC line this morning. Afebrile. She is scheduled for discharge today. PHYSICAL EXAM: VITAL SIGNS: Reviewed. GENERAL: in no acute distress. ABDOMEN: Soft. Nondistended. Wound vac midline incision intact. Ostomy with stool NEUROLOGIC: Alert and oriented. Cranial nerves II through XII grossly intact. ASSESSMENT: 1. Sacral decubitus ulcer status post debridement PLAN: -Patient is stable for discharge from surgical standpoint -Continue local wound care -Discharge antibiotics per infectious disease -Continue offloading Physician Industrial Painter note has been reviewed by physician. Signing provider agrees with the documented findings, assessment, and plan of care. Objective - Vital Signs Vital signs: Vital Signs Temp 97.8 F 07/06/24 14:00 Pulse 56 L 07/06/24 14:00 Resp 17 07/06/24 14:00 BP 124/68 07/06/24 14:00 Pulse Ox 98 07/06/24 14:00 FiO2 Intake & Output 07/05/24 07/06/24 07/06/24 18:59 06:59 18:59 Output Total 650 425 Balance -650 -425 Weight 68.039 kg Output: Urine 650 425 Other: Voiding Method Indwelling Catheter Indwelling Catheter - Labs CBC & Chem 7: 07/05/24 02:38 07/05/24 06:00 Labs: Microbiology - Last 24 Hours (Table) 07/03/24 03:18 Blood Culture - Preliminary Blood
--- NOTE | 2024-07-06 15:10 | CDI ---
Documentation Clarification Form Date: 07/06/2024 02:39:36 PM From: Palma Candelraia RN, CCDS Phone: [phone] Admit Date: 06/27/2024 07:12:00 PM Patient Name: Alicia Lemons Visit Number: [id number] Discharge Date: ATTENTION: The Clinical Documentation Specialists (CDI) and [facility] Coding Staff appreciate your assistance in clarifying documentation. Please respond to the clarification below the line at the bottom and electronically sign. The CDI & [facility] Coding staff will review the response and follow-up if needed. Please note: Queries are made part of the Legal Health Record. If you have any questions, please contact the author of this message via ITS. Doctor/Provider: Dario Valles A debridement is documented on 06/29/24. Additional clarification regarding the procedure is requested. History/Risk Factors: Atrial Fibrillation, Hyperlipidemia, Hypertension, Clinical Indicators: 73 years old female has sacral pressure ulcers with wound VAC. She was sent in from [facility], with would culture showing MRSA. 06/29 Debridement of sacral decubitus ulcer, Pathology: (Necrotic skin fat muscle) Procedure Note: The area was sharply debrided with a 10 blade and then using electrocautery the necrotic skin fat and muscle was debrided. The ulcer extends all the way to the coccyx. The depth of the ulcer vary between 3 and 4 cm. Treatment: Wound Packed with Kerlix Flagyl 500MG PO TID Cefepime HCL 2 GM IVPB Q 8 HRS Continue offloading Please clarify the type of procedure performed: [ xx] Excisional debridement (the removal of necrotic, devitalized tissue or slough by means of cutting away of tissue) [ ] Non-excisional debridement (the removal of necrotic, devitalized tissue or slough by means of flushing, brushing, or washing. (Irrigation) [ ] Other; please specify [ ] Unable to determine Five elements required for accurate and compliant documentation of a debridement: Technique used (e.g., excisional, excised, cutting, brushing, jet lavage etc.) Instrument(s) used (e.g., scalpel, curette, etc.) Nature of the tissue removed (e.g., necrotic, devitalized tissues, non-viable tissue, etc.) Appearance and size of the wound (e.g., down to fresh bleeding tissue, 7cm x 10cm, etc.) Depth of the debridement* (e.g., skin, subcutaneous tissue, fascia, muscle, bone, etc.) (Template Last Revised: November 2020) MTDD
--- NOTE | 2024-07-06 21:13 | P.PN ---
Progress Note - Text Progress Note Date: 07/06/24 The patient and her daughter are concerned regarding the possibility of bladder cancer, given the hematuria that was noted. I explained to them that it is overwhelmingly likely that the hematuria is the result of Duarte catheter trauma. The likelihood of occult bladder cancer is very low, but not zero. Impression: Hematuria, likely secondary to Duarte catheter trauma. Plan: Discharged home with Duarte catheter to assist in wound healing. The patient has been instructed to contact me if there is evidence of hematuria following removal of the Duarte catheter, in which case arrangements will be made for her to undergo cystoscopy.
--- NOTE | 2024-07-07 13:49 | P.PN ---
Subjective Progress Note Date: 07/06/24 Principal diagnosis: Reason for follow-up is infected sacral pressure ulcer Patient is a 73-year-old female with a past medical history significant for hypertension hyperlipidemia [place] atrial fibrillation with recent history of perforated diverticulitis requiring laparotomy diverting colostomy patient also developed sacral pressure ulcer during that hospital stay and s ubsequently seem to have worsening of her sacral pressure ulcer patient has been brought into the hospital, the patient status post surgical debridement of this ulcer which was extended all the way down to the coccyx unfortunately no cultures were done. On today's evaluation that is 07/06/2024, Patient is afebrile this morning patient denies having any chest pain shortness of breath or cough, the patient is currently on room air, patient denies abdominal pain still complaining of pain to the sacral wound area but no worsening. No CBC was done today, creatinine 0.2 blood culture has been negative Objective - Vital Signs Vital signs: Vital Signs Temp 97.8 F 07/06/24 07:10 Pulse 56 L 07/06/24 07:10 Resp 18 07/06/24 07:10 BP 116/74 07/06/24 07:10 Pulse Ox 96 07/06/24 07:10 FiO2 Intake & Output 07/05/24 07/06/24 07/06/24 18:59 06:59 18:59 Output Total 650 425 Balance -650 -425 Weight 68.039 kg Output: Urine 650 425 Other: Voiding Method Indwelling Catheter Indwelling Catheter - Exam GENERAL DESCRIPTION: An elderly female lying in bed in no distress RESPIRATORY SYSTEM: Unlabored breathing , decreased breath sounds at bases HEART: S1 S2 regular rate and rhythm , ABDOMEN: Soft , no tenderness EXTREMITIES: No edema feet - Labs CBC & Chem 7: 07/05/24 02:38 07/05/24 06:00 Labs: Microbiology - Last 24 Hours (Table) 07/03/24 03:18 Blood Culture - Preliminary Blood Assessment and Plan (1) Unstageable pressure ulcer of sacral region Status: Acute Code(s): L89.150 - PRESSURE ULCER OF SACRAL REGION, UNSTAGEABLE SNOMED Code(s): 03206438825038318 (2) Sacral osteomyelitis Status: Acute Code(s): M46.28 - OSTEOMYELITIS OF VERTEBRA, SACRAL AND SACROCOCCYGEAL REGION SNOMED Code(s): 866527175 (3) Bacteremia Status: Acute Code(s): R78.81 - BACTEREMIA SNOMED Code(s): 4628633 Plan: 1patient presented to hospital with worsening of her sacral pressure ulcer with the patient has for more than a month now failing outpatient treatment with santyl, patient did have significant amount of necrotic and slough tissue and foul-smelling drainage and will need to cover for the polymicrobial jasmyn including gram-positive as well as gram-negative apparently outpatient culture positive for MRSA however I do not have access to those culture has not been at [facility] 2-patient is status post surgical debridement of this ulcer which per operative report was sustained down to the coccyx suspicious for sacral osteomyelitis unfortunately no OR cultures were done 3-patient did have a positive blood culture with Proteus likely source is sacral pressure ulcer, blood culture has been repeated and so far negative 4patient also have a culture obtained subsequently from the sacral wound of 27 June got finalized after almost 7 days and just showed up in the system also growing drug resistant Enterobacter 5patient did get a PICC line plan is for 6-week course of IV cefepime 2 g every 8-hour and oral Flagyl, and close outpatient follow-up Dictation was produced using [employer] dictation software. please excuse any gra mmatical, word or spelling errors., Time with Patient: Less than 30
--- NOTE | 2024-07-13 14:09 | P.DS ---
Providers Date of admission: 06/27/24 19:12 Expected date of discharge: 07/06/24 Attending physician: Ronnie Pike Consults: 06/27/24 19:11 Consult Physician Urgent Consulting Provider: Jelani Krishnamurthy Consult Reason/Comments: Sacral ulcer, reported MRSA Do you want consulting provider notified?: Yes 06/28/24 09:41 Consult Physician Routine Consulting Provider: Dario Valles Consult Reason/Comments: sacral ulcer Do you want consulting provider notified?: Yes 06/28/24 09:42 Consult Physician Routine Consulting Provider: Juan Lopez Consult Reason/Comments: a fib , on asa and plavix, htn Do you want consulting provider notified?: Yes 07/05/24 01:34 Consult Physician Routine Consulting Provider: Emery Hauser Consult Reason/Comments: blood in couch. Do you want consulting provider notified?: Yes, Notify in am Primary care physician: Jasson Elder [facility] Course: Final diagnosis infected sacral pressure ulcer, unstageable, failed outpatient therapy, status post surgical debridement, cultures growing Proteus as well as Enterococcus Bacteremia secondary to above. Repeat blood culture negative Status post PICC line placement Acute gastroenteritis, most likely reactive, improving depression, Mild with no suicidal ideation paroxysmal A-fib, not on anticoagulation currently. Taking aspirin and Plavix Hypertension Hyperlipidemia Anemia GI prophylaxis DVT prophylaxis Full code Discharge disposition Patient is being discharged in a stable condition with guarded prognosis to home with continued home care. Patient will follow-up with Dr. Rome in the outpatient setting upon discharge. Patient is to continue with IV antibiotics per ID recommendations and outpatient follow-up with the wound care center as scheduled. Total time taken is greater than 35 minutes. Hospital course This is a 73-year-old female who was recently admitted with infected unstageable pressure ulcer of the sacrum with multiple consultations following. Patient has had previous hospitalizations with prolonged hospitalization and general clinical decline basically bedbound and has been unable to ambulate since surgery. Patient continues with ostomy and surgical site healing and was evaluated by general surgery with no plans of surgical intervention at this time. Patient being followed by infectious disease and will receive a PICC line as patient's cultures finalized from surgical debridement showing Proteus as well as Enterococcus. Patient will continue with local wound care and outpatient follow-up with the wound care center along with IV antibiotics. Please refer to other consultation notes for further HPI. Patient will continue with indwelling Couch catheter and trial void once more mobile. Recommend exchanging Couch catheters at least once monthly. Patient did have a small episode of hematuria which has resolved and was evaluated by urology recommending trial void outpatient once more mobile and if having any further hematuria also recommends a cystoscopy once improved and able to make it to the office. Please refer to other consultation notes for further HPI. Currently no reports of chest pain, shortness of breath, or palpitations. Patient is afebrile. No reports of nausea or vomiting and patient is tolerating diet. Patient will be discharged home today. Patient to continue with home care. High risk for readmissions and extremely guarded prognosis given significant comorbidities, recent surgery with prolonged hospitalizations and general clinical decline. Physical exam: Gen: This is a 73-year-old female who is awake, alert and oriented x 3, well- developed, elderly appearing, ill-appearing HEENT: Head is atraumatic, normocephalic. Pupils equal, round. Sclerae is anicteric. NECK: Supple. No JVD. No lymphadenopathy. No thyromegaly. LUNGS: Diminished breath sounds bilaterally otherwise clear to auscultation. No wheezes or rhonchi. No intercostal retractions. HEART: S1, S2 are muffled ABDOMEN: Soft. Obese. Ostomy noted with brown stool bowel sounds are present. No masses. No tenderness. EXTREMITIES: No pedal edema. No calf tenderness. Generalized edema, nonpitting, 2/5 strength NEUROLOGICAL: Patient is awake, alert and oriented x3. Cranial nerves 2 through 12 are grossly intact. Diffusely weak Please refer to medication reconciliation sheet for a list of medications. The impression and plan of care has been dictated by Lisy Jones, Nurse Practitioner as directed. Dr. Joon MD I have performed a history and examination and MDM of this patient, discussed the same with the dictator, and agree with the dictator's assessment and plan as written ,documented as a scribe. Based on total visit time, I have performed more than 50% of the visit. Patient Condition at Discharge: Fair Plan - Discharge Summary Discharge Rx Participant: Yes New Discharge Prescriptions: New metroNIDAZOLE [Flagyl] 500 mg PO TID #126 tab Famotidine [Pepcid] 20 mg PO BID #60 tab DULoxetine HCL [Cymbalta] 60 mg PO DAILY #30 cap Cefepime [Maxipime] 2 gm IVPB Q8HR each Nystatin 100,000 Unit/ml Susp [Mycostatin Oral Susp] 500,000 unit PO QID #360 ml Continue Aspirin EC [Ecotrin Low Dose] 81 mg PO DAILY Atorvastatin [Lipitor] 40 mg PO DAILY #90 tab Nitroglycerin Sl Tabs [Nitrostat] 0.4 mg SL Q5M PRN PRN Reason: Chest Pain Metoprolol Succinate [Metoprolol Succinate ER] 25 mg PO BID Clopidogrel [Plavix] 75 mg PO DAILY #0 oxyCODONE-APAP 5-325MG [Percocet 5-325 mg] 1 tab PO Q6HR PRN PRN Reason: Pain Prochlorperazine [Compazine] 10 mg PO Q6H PRN PRN Reason: Nausea Discontinued Collagenase [Santyl Ointment] 1 applic TOPICAL DAILY lisinopriL [Zestril] 20 mg PO BID Spironolactone [Aldactone] 25 mg PO DAILY Empagliflozin [Jardiance] 10 mg PO DAILY Levofloxacin [Levaquin] 500 mg PO DAILY Discharge Medication List Aspirin EC [Ecotrin Low Dose] 81 mg PO DAILY 12/02/17 [History] Atorvastatin [Lipitor] 40 mg PO DAILY #90 tab 09/11/23 [Rx] Nitroglycerin Sl Tabs [Nitrostat] 0.4 mg SL Q5M PRN 05/09/24 [History] Metoprolol Succinate [Metoprolol Succinate ER] 25 mg PO BID 06/27/24 [History] Prochlorperazine [Compazine] 10 mg PO Q6H PRN 06/27/24 [History] oxyCODONE-APAP 5-325MG [Percocet 5-325 mg] 1 tab PO Q6HR PRN 06/27/24 [History] Cefepime [Maxipime] 2 gm IVPB Q8HR each 07/06/24 [Rx] Clopidogrel [Plavix] 75 mg PO DAILY #0 07/06/24 [Rx] DULoxetine HCL [Cymbalta] 60 mg PO DAILY #30 cap 07/06/24 [Rx] Famotidine [Pepcid] 20 mg PO BID #60 tab 07/06/24 [Rx] Nystatin 100,000 Unit/ml Susp [Mycostatin Oral Susp] 500,000 unit PO QID #360 ml 07/06/24 [Rx] metroNIDAZOLE [Flagyl] 500 mg PO TID #126 tab 07/06/24 [Rx] Follow up Appointment(s)/Referral(s): Home Health,[facility] [NON-STAFF] - As Needed [facility] [REFERRING] - 1 Week (Office busy please call to schedule appointment ) [facility], [REFERRING] - As Needed (Will deliver to home today between 6-8p) Activity/Diet/Wound Care/Special Instructions: Activity limited until follow-up Follow-up with general surgery outpatient Although with urology outpatient Follow-up with repeat CBC, BMP, magnesium outpatient in 2 to 3 days Follow-up with primary care provider on discharge Follow-up with cardiology outpatient Discharge Disposition: HOME WITH HOME HEALTH SERVICES
--- NOTE | 2024-07-17 12:06 | CDI ---
Documentation Clarification Form Date: 07/17/2024 11:54:04 AM From: Laila Rehman Phone: Admit Date: 06/27/2024 07:12:00 PM Patient Name: Alicia Lemons Visit Number: [id number] Discharge Date: 07/06/2024 06:45:00 PM ATTENTION: The Clinical Documentation Specialists (CDI) and [facility] Coding Staff appreciate your assistance in clarifying documentation. Please respond to the clarification below the line at the bottom and electronically sign. The CDI & [facility] Coding staff will review the response and follow-up if needed. Please note: Queries are made part of the Legal Health Record. If you have any questions, please contact the author of this message via ITS. Doctor/Provider: Wu E Sheet Unspecified anemia is documented Consult 06/28 and ongoing Progress Notes. Additional specificity regarding the type and acuity of anemia is requested. History/Risk Factors: 73yo F, Stg IV sacral decubitus ulcer, PAF, CAD, ICM, HTN, HLD, PRETTY bacteremia, diverticulitiswith recentbowelresection/colostomy Clinical indicators: Hemoglobin: 06/27 9.3 06/28 8.2 07/01 7.6 07/03 7.7 07/05 7.5 Hematocrit: 06/27 29.6 06/28 27.5 07/01 25.8 07/03 25.3 07/05 25.4 Treatment: monitored; f/u with wound care Please clarify the type and acuity of anemia: [ ] Acute blood loss anemia [ ] Acute on chronic blood loss anemia [ ] Chronic blood loss anemia [ ] Iron deficiency anemia [ x ] Unable to determine from the above info [ ] Other, please specify (Template Last Revised: October 2020) MTDD
== END 2024-07-06 18:45 | disposition home health service (06) | DRG 580 ==
LOC: EC 17:09 → 4SSUR 19:12
PROVIDERS: ADMIT Hospitalist; ATTEND Hospitalist
PROC: 0KBP0ZZ Excision of Left Hip Muscle, Open Approach (ICD-10-PCS; principal; 2024-06-29 08:30)
PROC: 0KBN0ZZ Excision of Right Hip Muscle, Open Approach (ICD-10-PCS; 2024-06-29 23:05)
PROC: 02HV33Z Insertion of Infusion Device into Superior Vena Cava, Percutaneous Approach (ICD-10-PCS; 2024-07-06)
DX: L89.154 Pressure ulcer of sacral region, stage 4 (principal); K57.20 Diverticulitis of large intestine with perforation and abscess without bleeding; T83.83XA Hemorrhage due to genitourinary prosthetic devices, implants and grafts, initial encounter; R78.81 Bacteremia; M46.28 Osteomyelitis of vertebra, sacral and sacrococcygeal region; Z16.30 Resistance to unspecified antimicrobial drugs; B95.2 Enterococcus as the cause of diseases classified elsewhere; I10 Essential (primary) hypertension; F32.A Depression, unspecified; D64.9 Anemia, unspecified; Z93.3 Colostomy status; I48.0 Paroxysmal atrial fibrillation; B96.4 Proteus (mirabilis) (morganii) as the cause of diseases classified elsewhere; K52.89 Other specified noninfective gastroenteritis and colitis; N20.0 Calculus of kidney; Y84.6 Urinary catheterization as the cause of abnormal reaction of the patient, or of later complication, without mention of misadventure at the time of the procedure; R31.0 Gross hematuria; I25.5 Ischemic cardiomyopathy; I25.10 Atherosclerotic heart disease of native coronary artery without angina pectoris; E78.5 Hyperlipidemia, unspecified; Z79.02 Long term (current) use of antithrombotics/antiplatelets; Z79.82 Long term (current) use of aspirin; I25.2 Old myocardial infarction; Z79.84 Long term (current) use of oral hypoglycemic drugs; Z86.14 Personal history of Methicillin resistant Staphylococcus aureus infection; Z79.899 Other long term (current) drug therapy; Z95.5 Presence of coronary angioplasty implant and graft; Z74.01 Bed confinement status; Z90.49 Acquired absence of other specified parts of digestive tract
CPT/HCPCS: 36410; 36415; 36573; 72170; 76937; 80048; 80053; 80202; 82565; 83605; 83735; 84132; 85025; 85027; 85610; 85652; 85730; 86140; 87040; 87070; 87075; 87077; 87186; 87205; 87324; 88304; 88312; 96365; 96366; 99285

== ENCOUNTER 2024-07-18 10:01 | Inpatient (IN) | payer MEDICARE, OTHER ==
[2024-07-18 11:11] LABS: Anisocytosis Slight; Basophils % (A) 0 %; Eosinophils % (A) 0 %; HCT 31.7 % (34.0-46.0); HGB 9.8 gm/dL (11.4-16.0); Hypochromasia Marked; Lymphocytes # (A) 0.9 k/uL (1.0-4.8); Lymphocytes % (A) 10 %; MCH 25.6 pg (25.0-35.0); MCHC 30.9 g/dL (31.0-37.0); Mean Platelet Volume 7.1; Microcytosis Slight; Monocytes # (A) 0.5 k/uL (0-1.0); Monocytes % (A) 6 %; Neutrophils # (A) 7.2 k/uL (1.3-7.7); Neutrophils % (A) 83 %; Platelet Count 317 k/uL (150-450); RBC 3.82 m/uL (3.80-5.40); RDW 19.3 % (11.5-15.5); WBC 8.7 k/uL (3.8-10.6)
[2024-07-18] MEDS: SODIUM CHLORIDE 0.9% 1,000 ML IV ONE (11:20)
[2024-07-18] MEDS: SODIUM CHLORIDE 0.9% 500 ML 500 ML IV ONE (11:20)
[2024-07-18 11:25] LABS: Appearance,Urine Cloudy (Clear); Bilirubin,Urine Negative (Negative); Blood,Urine Large (Negative); Budding Yeast,Urine Many /hpf; Calcium Oxalate Crystals,Urine Occasional /hpf; Cellular Casts,Urine 2 /lpf (0); Color,Urine Yellow; Glucose,Urine (UA) Negative (Negative); Granular Casts,Urine 4 /lpf (0); Hyphae Yeast, Urine Rare /hpf; Ketones,Urine 1+ (Negative); Leukocyte Esterase,Urine Large (Negative); Mucus,Urine Rare /hpf; Nitrite,Urine Positive (Negative); Protein,Urine 2+ (Negative); RBC,Urine 174 /hpf (0-5); Specific Gravity,Urine 1.026 (1.001-1.035); Urobilinogen,Urine <2.0 mg/dL (<2.0); WBC,Urine 111 /hpf (0-5)
[2024-07-18 11:41] LABS: INR 1.5 (<1.2); Partial Thromboplastin Time 40.1 sec (22.0-30.0); Prothrombin Time 15.3 sec (10.0-12.5)
[2024-07-18 11:44] LABS: ALT 12 U/L (4-34); AST 25 U/L (14-36); African American GFR (CKD) >90 (>60 ml/min/1.73 sqM); Albumin 1.7 g/dL (3.5-5.0); Alkaline Phosphatase 107 U/L (38-126); Anion Gap 4 mmol/L; Blood Urea Nitrogen 35 mg/dL (7-17); Calcium 8.5 mg/dL (8.4-10.2); Carbon Dioxide 20 mmol/L (22-30); Chloride 110 mmol/L (98-107); Glucose 83 mg/dL (74-99); Magnesium 1.6 mg/dL (1.6-2.3); Non-African American GFR(CKD) 89 (>60 ml/min/1.73 sqM); Potassium 3.5 mmol/L (3.5-5.1); Sodium 134 mmol/L (137-145); Total Bilirubin 0.4 mg/dL (0.2-1.3); Total Protein 5.8 g/dL (6.3-8.2)
--- NOTE | 2024-07-18 11:55 | ED ---
Altered Mental Status HPI - General Chief Complaint: Altered Mental Status Stated Complaint: AMS Time Seen by Provider: 07/18/24 10:18 Source: family, EMS, RN notes reviewed Mode of arrival: EMS Limitations: altered mental status - History of Present Illness Initial Comments: This is a 73-year-old female who presents to the emergency department for alter ed mental status. Patient's daughter states that yesterday they started to notice her becoming very weak and lethargic. She was also becoming slower to respond. She would answer a question but then nod off in the middle of a sentence and fall back asleep. Home care nurse noticed that her Duarte catheter bag had not filled up like it should and was concerned that she was retaining urine. Her urine was also much darker and they are worried she may have a UTI. She is already on cefepime via PICC line for a sacral wound. Patient is able to give her name, location, and the month. However, in the middle of her response she starts to trail off her sentences and appears to be falling asleep. MD Complaint: altered mental status - Related Data Home Medications Medication Instructions Recorded Confirmed Aspirin EC [Ecotrin Low Dose] 81 mg PO DAILY 12/02/17 07/18/24 Nitroglycerin Sl Tabs [Nitrostat] 0.4 mg SL Q5M PRN 05/09/24 07/18/24 Metoprolol Succinate [Metoprolol 25 mg PO BID 06/27/24 07/18/24 Succinate ER] Prochlorperazine [Compazine] 10 mg PO Q6H PRN 06/27/24 07/18/24 oxyCODONE-APAP 5-325MG [Percocet 1 tab PO Q6HR PRN 06/27/24 07/18/24 5-325 mg] Ondansetron [Zofran] 4 mg PO Q8H PRN 07/18/24 07/18/24 oxyCODONE HCL [oxyCODONE HCL (IR)] 10 mg PO Q4H PRN 07/18/24 07/18/24 Previous Rx's Medication Instructions Recorded Atorvastatin [Lipitor] 40 mg PO DAILY #90 tab 09/11/23 Cefepime [Maxipime] 2 gm IVPB Q8HR each 07/06/24 Clopidogrel [Plavix] 75 mg PO DAILY #0 07/06/24 DULoxetine HCL [Cymbalta] 60 mg PO DAILY #30 cap 07/06/24 Famotidine [Pepcid] 20 mg PO BID #60 tab 07/06/24 Nystatin 100,000 Unit/ml Susp 500,000 unit PO QID #360 ml 07/06/24 [Mycostatin Oral Susp] metroNIDAZOLE [Flagyl] 500 mg PO TID #126 tab 07/06/24 Allergies Allergy/AdvReac Type Severity Reaction Status Date / Time Iodinated Contrast Media Allergy Wheezing/hi Verified 07/18/24 10:16 ves iodine Allergy Wheezing/hi Verified 07/18/24 10:16 ves Review of Systems ROS Statement: Those systems with pertinent positive or pertinent negative responses have been documented in the HPI. ROS Other: All systems not noted in ROS Statement are negative. Past Medical History Past Medical History: Atrial Fibrillation, Hyperlipidemia, Hypertension, Myocardial Infarction (IA) Additional Past Medical History / Comment(s): stage 4 pressure ulcer on buttocks Last Myocardial Infarction Date:: 09/07/2023 History of Any Multi-Drug Resistant Organisms: MRSA Date of last positivie culture/infection: 06/27/24 MDRO Source:: coccyx Past Surgical History: Heart Catheterization With Stent Additional Past Surgical History / Comment(s): Cardiac stents, perferated bowel with ostomy Past Anesthesia/Blood Transfusion Reactions: No Reported Reaction Date of Last Stent Placement:: 09/07/2023 Past Psychological History: No Psychological Hx Reported Smoking Status: Never smoker Past Alcohol Use History: None Reported Past Drug Use History: None Reported General Exam Limitations: altered mental status General appearance: alert Head exam: Present: atraumatic, normocephalic, normal inspection Respiratory exam: Present: normal lung sounds bilaterally. Absent: respiratory distress, wheezes, rales, rhonchi, stridor Cardiovascular Exam: Present: regular rate, normal rhythm, normal heart sounds. Absent: systolic murmur, diastolic murmur, rubs, gallop, clicks GI/Abdominal exam: Present: soft. Absent: distended, tenderness Neurological exam: Present: alert Skin exam: Present: warm, dry, intact, normal color. Absent: rash Course Vital Signs 07/18/24 07/18/24 10:13 13:42 Temperature 98.7 F Pulse Rate 89 74 Respiratory 16 16 Rate Blood Pressure 92/69 98/62 O2 Sat by Pulse 100 99 Oximetry Medical Decision Making - Medical Decision Making This is a 73-year-old female who presents to the emergency department for altered mental status. Was pt. sent in by a medical professional or institution? @ -No Did you speak to anyone other than the patient for history? @ -Her daughter provided all of the history. Did you review nursing and triage notes? @ -Yes, and I agree, it is accurate with regards to the patient's symptoms. Were old charts reviewed? @ -No Differential Diagnosis? @ -Differential Altered Mental Status: Hypoglycemia, DKA, hypercapnia, ETOH, overdose, CO poisoning, trauma, myxedema coma, HTN encephalopathy, infection, encephalitis, psychosis, intercranial hemorrhage, hepatic encephalopathy, meningitis, CVA, this is not meant to be an all-inclusive list EKG interpreted by me (3pts min.)? @ -EKG interpreted by me demonstrating the following: Atrial fibrillation. Ventricular rate 88 bpm, QRS duration 166 ms, QTc 485 ms. X-rays interpreted by me (1pt min.)? @ -Chest x-ray obtained, my interpretation identifies no localized consolidations or infiltrates. CT interpreted by me (1pt min.)? @ -CT scan of the brain obtained. My interpretation identifies no evidence of an acute intracranial hemorrhage. U/S interpreted by me (1pt. min.)? @ -Not obtained What testing was considered but not performed? (CT, X-rays, U/S, labs)? Why? @ -None What meds were considered but not given? Why? @ -None Did you discuss the management of the patient with other professionals? @ -Yes, Dr. Dupree, who accepts the patient for admission Did you reconcile home meds? @ -Yes Was smoking cessation discussed for >3mins.? @ -No Was critical care preformed (if so, how long)? @ -No Were there social determinants of health that impacted care today? How? (Ho melessness, low income, unemployed, alcoholism, drug addiction, transportation, low edu. Level, literacy, decrease access to med. care, correction, rehab)? @ -No Was there de-escalation of care discussed even if they declined? (Discuss DNR or withdrawal of care, Hospice)? @ -No What co-morbidities impacted this encounter? (DM, HTN, Smoking, COPD, CAD, Cancer, CVA, Hep., AIDS, mental health diagnosis, sleep apnea, morbid obesity)? @ -A-fib, HLD, HTN Was patient admitted / discharged? @ -Admitted. Patient was somnolent and slow to respond on evaluation. She was understanding and able to answer questions, but would trail off in the middle of her responses. Urinalysis consistent with infection and urine was sent for culture. Duarte catheter replaced with a new one. Given that the patient is already on cefepime, she was given 750 mg of Levaquin IVPB. UDS returned positive for cocaine and methamphetamine. Unclear if these may be false positives. Chest x-ray and CT scan of the brain revealed no acute findings. Patient admitted to medicine for altered mental status with UTI and hypotension. Consult placed for infectious disease. Wound care consulted as well for the large sacral wound patient has requiring wound VAC. Of note, patient is supposed to be on Flagyl 500mg 3 times daily at home. However, she is currently unable to take the pills orally and this was ordered to be given IV instead temporarily. Case discussed with ED attending, Dr. Lucero. Undiagnosed new problem with uncertain prognosis? @ -None Drug Therapy requiring intensive monitoring for toxicity (Heparin, Nitro, Insulin, Cardizem)? @ -None Were any procedures done? @ -None Diagnosis/symptom? @ -UTI, altered mental status, hypotension Acute, or Chronic, or Acute on Chronic? @ -Acute Uncomplicated (without systemic symptoms) or Complicated (systemic symptoms)? @ -Complicated Side effects of treatment? @ -None Exacerbation, Progression, or Severe Exacerbation] @ -Not applicable Poses a threat to life or bodily function? @ -Yes, worsening infection can lead to septic shock, which is life threatening - Lab Data Result diagrams: 07/18/24 11:04 07/18/24 11:04 Lab Results 07/18/24 07/18/24 07/18/24 Range/Units 10:54 10:54 11:04 WBC 8.7 (3.8-10.6) k/uL RBC 3.82 (3.80-5.40) m/uL Hgb 9.8 L (11.4-16.0) gm/dL Hct 31.7 L (34.0-46.0) % MCV 83.0 (80.0-100.0) fL MCH 25.6 (25.0-35.0) pg MCHC 30.9 L (31.0-37.0) g/dL RDW 19.3 H (11.5-15.5) % Plt Count 317 (150-450) k/uL MPV 7.1 Neutrophils % 83 % Lymphocytes % 10 % Monocytes % 6 % Eosinophils % 0 % Basophils % 0 % Neutrophils # 7.2 (1.3-7.7) k/uL Lymphocytes # 0.9 L (1.0-4.8) k/uL Monocytes # 0.5 (0-1.0) k/uL Eosinophils # 0.0 (0-0.7) k/uL Basophils # 0.0 (0-0.2) k/uL Hypochromasia Marked Anisocytosis Slight Microcytosis Slight PT (10.0-12.5) sec INR (<1.2) APTT (22.0-30.0) sec Sodium (137-145) mmol/L Potassium (3.5-5.1) mmol/L Chloride (98-107) mmol/L Carbon Dioxide (22-30) mmol/L Anion Gap mmol/L BUN (7-17) mg/dL Creatinine (0.52-1.04) mg/dL Est GFR (CKD-EPI)AfAm (>60 ml/min/1.73 sqM) Est GFR (CKD-EPI)NonAf (>60 ml/min/1.73 sqM) Glucose (74-99) mg/dL Plasma Lactic Acid David 1.0 (0.7-2.0) mmol/L Calcium (8.4-10.2) mg/dL Phosphorus (2.5-4.5) mg/dL Magnesium (1.6-2.3) mg/dL Total Bilirubin (0.2-1.3) mg/dL AST (14-36) U/L ALT (4-34) U/L Alkaline Phosphatase (38-126) U/L Troponin I (0.000-0.034) ng/mL Total Protein (6.3-8.2) g/dL Albumin (3.5-5.0) g/dL Urine Color Yellow Urine Appearance Cloudy H (Clear) Urine pH 6.0 (5.0-8.0) Ur Specific [place] 1.026 (1.001-1.035) Urine Protein 2+ H (Negative) Urine Glucose (UA) Negative (Negative) Urine Ketones 1+ H (Negative) Urine Blood Large H (Negative) Urine Nitrite Positive H (Negative) Urine Bilirubin Negative (Negative) Urine Urobilinogen <2.0 (<2.0) mg/dL Ur Leukocyte Esterase Large H (Negative) Urine RBC 174 H (0-5) /hpf Urine WBC 111 H (0-5) /hpf Calcium Oxalate Crystal Occasional H (None) /hpf Cellular Casts 2 (0) /lpf Granular Casts 4 (0) /lpf Urine Mucus Rare H (None) /hpf Ur Yeast w Hyphae Rare (None) /hpf Urine Yeast (Budding) Many H (None) /hpf Urine Opiates Screen (NotDetected) Ur Oxycodone Screen (NotDetected) Urine Methadone Screen (NotDetected) Ur Barbiturates Screen (NotDetected) U Tricyclic Antidepress (NotDetected) Ur Phencyclidine Scrn (NotDetected) Ur Amphetamines Screen (NotDetected) U Methamphetamines Scrn (NotDetected) U Benzodiazepines Scrn (NotDetected) Urine Cocaine Screen (NotDetected) U Marijuana (THC) Screen (NotDetected) 07/18/24 07/18/24 07/18/24 Range/Units 11:04 11:04 11:04 WBC (3.8-10.6) k/uL RBC (3.80-5.40) m/uL Hgb (11.4-16.0) gm/dL Hct (34.0-46.0) % MCV (80.0-100.0) fL MCH (25.0-35.0) pg MCHC (31.0-37.0) g/dL RDW (11.5-15.5) % Plt Count (150-450) k/uL MPV Neutrophils % % Lymphocytes % % Monocytes % % Eosinophils % % Basophils % % Neutrophils # (1.3-7.7) k/uL Lymphocytes # (1.0-4.8) k/uL Monocytes # (0-1.0) k/uL Eosinophils # (0-0.7) k/uL Basophils # (0-0.2) k/uL Hypochromasia Anisocytosis Microcytosis PT 15.3 H (10.0-12.5) sec INR 1.5 H (<1.2) APTT 40.1 H (22.0-30.0) sec Sodium 134 L (137-145) mmol/L Potassium 3.5 (3.5-5.1) mmol/L Chloride 110 H (98-107) mmol/L Carbon Dioxide 20 L (22-30) mmol/L Anion Gap 4 mmol/L BUN 35 H (7-17) mg/dL Creatinine 0.62 (0.52-1.04) mg/dL Est GFR (CKD-EPI)AfAm >90 (>60 ml/min/1.73 sqM) Est GFR (CKD-EPI)NonAf 89 (>60 ml/min/1.73 sqM) Glucose 83 (74-99) mg/dL Plasma Lactic Acid David (0.7-2.0) mmol/L Calcium 8.5 (8.4-10.2) mg/dL Phosphorus 2.8 (2.5-4.5) mg/dL Magnesium 1.6 (1.6-2.3) mg/dL Total Bilirubin 0.4 (0.2-1.3) mg/dL AST 25 (14-36) U/L ALT 12 (4-34) U/L Alkaline Phosphatase 107 (38-126) U/L Troponin I (0.000-0.034) ng/mL Total Protein 5.8 L (6.3-8.2) g/dL Albumin 1.7 L (3.5-5.0) g/dL Urine Color Urine Appearance (Clear) Urine pH (5.0-8.0) Ur Specific [place] (1.001-1.035) Urine Protein (Negative) Urine Glucose (UA) (Negative) Urine Ketones (Negative) Urine Blood (Negative) Urine Nitrite (Negative) Urine Bilirubin (Negative) Urine Urobilinogen (<2.0) mg/dL Ur Leukocyte Esterase (Negative) Urine RBC (0-5) /hpf Urine WBC (0-5) /hpf Calcium Oxalate Crystal (None) /hpf Cellular Casts (0) /lpf Granular Casts (0) /lpf Urine Mucus (None) /hpf Ur Yeast w Hyphae (None) /hpf Urine Yeast (Budding) (None) /hpf Urine Opiates Screen Not Detected (NotDetected) Ur Oxycodone Screen Detected H (NotDetected) Urine Methadone Screen Not Detected (NotDetected) Ur Barbiturates Screen Not Detected (NotDetected) U Tricyclic Antidepress Not Detected (NotDetected) Ur Phencyclidine Scrn Not Detected (NotDetected) Ur Amphetamines Screen Not Detected (NotDetected) U Methamphetamines Scrn Detected H (NotDetected) U Benzodiazepines Scrn Not Detected (NotDetected) Urine Cocaine Screen Detected H (NotDetected) U Marijuana (THC) Screen Not Detected (NotDetected) 07/18/24 Range/Units 11:04 WBC (3.8-10.6) k/uL RBC (3.80-5.40) m/uL Hgb (11.4-16.0) gm/dL Hct (34.0-46.0) % MCV (80.0-100.0) fL MCH (25.0-35.0) pg MCHC (31.0-37.0) g/dL RDW (11.5-15.5) % Plt Count (150-450) k/uL MPV Neutrophils % % Lymphocytes % % Monocytes % % Eosinophils % % Basophils % % Neutrophils # (1.3-7.7) k/uL Lymphocytes # (1.0-4.8) k/uL Monocytes # (0-1.0) k/uL Eosinophils # (0-0.7) k/uL Basophils # (0-0.2) k/uL Hypochromasia Anisocytosis Microcytosis PT (10.0-12.5) sec INR (<1.2) APTT (22.0-30.0) sec Sodium (137-145) mmol/L Potassium (3.5-5.1) mmol/L Chloride (98-107) mmol/L Carbon Dioxide (22-30) mmol/L Anion Gap mmol/L BUN (7-17) mg/dL Creatinine (0.52-1.04) mg/dL Est GFR (CKD-EPI)AfAm (>60 ml/min/1.73 sqM) Est GFR (CKD-EPI)NonAf (>60 ml/min/1.73 sqM) Glucose (74-99) mg/dL Plasma Lactic Acid David (0.7-2.0) mmol/L Calcium (8.4-10.2) mg/dL Phosphorus (2.5-4.5) mg/dL Magnesium (1.6-2.3) mg/dL Total Bilirubin (0.2-1.3) mg/dL AST (14-36) U/L ALT (4-34) U/L Alkaline Phosphatase (38-126) U/L Troponin I 0.030 (0.000-0.034) ng/mL Total Protein (6.3-8.2) g/dL Albumin (3.5-5.0) g/dL Urine Color Urine Appearance (Clear) Urine pH (5.0-8.0) Ur Specific [place] (1.001-1.035) Urine Protein (Negative) Urine Glucose (UA) (Negative) Urine Ketones (Negative) Urine Blood (Negative) Urine Nitrite (Negative) Urine Bilirubin (Negative) Urine Urobilinogen (<2.0) mg/dL Ur Leukocyte Esterase (Negative) Urine RBC (0-5) /hpf Urine WBC (0-5) /hpf Calcium Oxalate Crystal (None) /hpf Cellular Casts (0) /lpf Granular Casts (0) /lpf Urine Mucus (None) /hpf Ur Yeast w Hyphae (None) /hpf Urine Yeast (Budding) (None) /hpf Urine Opiates Screen (NotDetected) Ur Oxycodone Screen (NotDetected) Urine Methadone Screen (NotDetected) Ur Barbiturates Screen (NotDetected) U Tricyclic Antidepress (NotDetected) Ur Phencyclidine Scrn (NotDetected) Ur Amphetamines Screen (NotDetected) U Methamphetamines Scrn (NotDetected) U Benzodiazepines Scrn (NotDetected) Urine Cocaine Screen (NotDetected) U Marijuana (THC) Screen (NotDetected) - Radiology Data Radiology results: report reviewed, image reviewed Disposition Clinical Impression: Altered mental status, UTI (urinary tract infection), Hypotension Disposition: ADMITTED IP TO THIS HOSP
[2024-07-18 11:56] LABS: Phosphorus 2.8 mg/dL (2.5-4.5)
--- NOTE | 2024-07-18 12:09 | CT ---
EXAMINATION TYPE: CT brain wo con DATE OF EXAM: 07/18/2024 12:03 PM COMPARISON: 09/07/2023 CLINICAL INDICATION: Female, 73 years old with history of Altered mental status, TECHNIQUE: CT of the brain is performed utilizing 3 mm thick sections through the posterior fossa and 3 mm thick sections through the remaining calvarium. Study is performed within 24 hours of arrival to the hospital. Contrast used: mL of , (none if empty) Oral contrast used: (none if empty) CT DLP: mGycm, Automated exposure control for dose reduction was used. FINDINGS: No abnormal hyperdensity is present to suggest an acute intracranial hemorrhage. No mass lesion is evident. No acute infarcts are evident. Periventricular white matter hypodensity is present, likely on the bas is of chronic white matter ischemic changes. Findings appear stable. Ventricles and sulci are appropriate for the patient age. Paranasal sinuses and mastoid air cells within the [id number] are clear. IMPRESSION: 1. No acute intracranial process. Follow up MRI can be performed as clinically indicated. 2. Chronic appearing periventricular white matter ischemic type changes [facility], , 07/18/2024 12:06 PM
[2024-07-18] MEDS ORDERED: ONDANSETRON 4 MG TAB PO PRN (12:21)
[2024-07-18] MEDS ORDERED: PROCHLORPERAZINE 10 MG TAB PO PRN (12:21)
--- NOTE | 2024-07-18 12:23 | XR ---
EXAMINATION TYPE: XR chest 2V DATE OF EXAM: 07/18/2024 12:14 PM COMPARISON: 06/05/2024 CLINICAL INDICATION: Female, 73 years old with history of altered mental status, TECHNIQUE: XR chest 2V view(s) obtained. FINDINGS: The heart size is normal. Pacemaker overlies left chest The pulmonary vasculature is normal. The lungs are clear. PICC line enters on the right with the tip in the superior vena cava region IMPRESSION: 1. No acute pulmonary process. [facility], , 07/18/2024 12:21 PM
[2024-07-18] MEDS ORDERED: NALOXONE 0.4 MG/ML 1 ML VIAL IV PRN (12:42)
[2024-07-18] MEDS ORDERED: ACETAMINOPHEN TAB 325 MG TAB PO PRN (12:42)
[2024-07-18] MEDS: SODIUM CHLORIDE 0.9% 1,000 ML IV SCH (13:20)
[2024-07-18] MEDS: LEVOFLOXACIN 750MG-D5W PMX 750 MG in DEXTROSE/WATER 1 150ML.BAG IVPB STA (13:45)
[2024-07-18] MEDS: metroNIDAZOLE 500 MG TAB PO SCH (15:27)
[2024-07-18] MEDS: metroNIDAZOLE-NS PMX 500 MG in SALINE 1 100ML.BAG IVPB SCH (15:59)
[2024-07-18] MEDS ORDERED: CEFEPIME 2 GM VIAL IVPB SCH (16:00)
[2024-07-18] MEDS: CEFEPIME 2 GM in SODIUM CHLORIDE 0.9% 100 ML IVPB SCH (17:00)
[2024-07-18] MEDS: NYSTATIN 100,000 UNIT/ML SUSP 500,000 UNIT/5 ML CUP PO SCH (18:18)
--- NOTE | 2024-07-18 22:06 | P.HPIM ---
History of Present Illness H&P Date: 07/18/24 Chief Complaint: Altered mental status Patient is a 72-year-old female with a known history of infected unstageable pressure ulcer of the sacrum with recent debridement with cultures growing Proteus and Enterococcus was sent home on antibiotics in the form of cefepime and metronidazole on 07/06/2024. Other medical problems include CAD status post stent placement, paroxysmal atrial fibrillation not on anticoagulation, hypertension, hyperlipidemia, anemia. Patient present back to the hospital due to altered mental status. According to her daughter patient has been very weak and lethargic since yesterday. Patient has been also becoming slow to respond. Patient would also question but in the middle of sentence she fall back asleep. Home visiting nurse also noticed that her Duarte and also feeling of and is concerned about retaining of urine. Urine is also much darker and also concerned about urinary tract infection. Denied any fever or chills. No cough or sputum production. Patient blood pressure 92/69 pulse is 89 respirations 16 and pulse ox 100% on room air. CT head showed no acute intracranial process. Follow-up MRI can be performed as clinically indicated. Chest x-ray showed no acute pulmonary process. EKG showed atrial fibrillation with heart rate 88. Laboratory data showed WBC 8.7 hemoglobin 9.8 and platelets 317, INR 1.5 Sodium 134 potassium 3.5 chloride 110, BUN 35 and creatinine 0.62 and magnesium 1.6 albumin 1.3 and liver enzymes are not elevated troponin x 1 negative Urinalysis showed cloudy with 2+ protein 1+ ketones nitrite positive large leukocyte esterase with elevated RBCs and WBCs. UDS is positive for oxycodone, methamphetamine and cocaine Review of Systems Constitutional: Patient denies any fever or chills . No generalized weakness or weight loss. Abdomen: Patient denied nausea vomiting and diarrhea and abdominal pain. Cardiovascular: Patient denies any chest pain or short of breath no p alpitations. Respiratory: patient denied any cough or sputum production. No shortness of breath Neurologic: Patient denied any numbness or tingling. no headache. Musculoskeletal: Patient denies any complaints of joint swelling or deformity. Skin: Negative Psychiatric: Negative Endocrine: No heat or cold intolerance. No recent weight gain. Genitourinary: No dysuria or hematuria. All other 14 point ROS negative except the above Past Medical History Past Medical History: Atrial Fibrillation, Hyperlipidemia, Hypertension, Myocardial Infarction ([place]) Additional Past Medical History / Comment(s): stage 4 pressure ulcer on buttocks Last Myocardial Infarction Date:: 09/07/2023 History of Any Multi-Drug Resistant Organisms: MRSA Date of last positivie culture/infection: 06/27/24 MDRO Source:: coccyx Past Surgical History: Heart Catheterization With Stent Additional Past Surgical History / Comment(s): Cardiac stents, perferated bowel with ostomy Past Anesthesia/Blood Transfusion Reactions: No Reported Reaction Date of Last Stent Placement:: 09/07/2023 Past Psychological History: No Psychological Hx Reported Smoking Status: Never smoker Past Alcohol Use History: None Reported Past Drug Use History: None Reported Medications and Allergies Home Medications Medication Instructions Recorded Confirmed Type Aspirin EC [Ecotrin Low Dose] 81 mg PO DAILY 12/02/17 07/18/24 History Atorvastatin [Lipitor] 40 mg PO DAILY #90 tab 09/11/23 07/18/24 Rx Nitroglycerin Sl Tabs [Nitrostat] 0.4 mg SL Q5M PRN 05/09/24 07/18/24 History Metoprolol Succinate [Metoprolol 25 mg PO BID 06/27/24 07/18/24 History Succinate ER] Prochlorperazine [Compazine] 10 mg PO Q6H PRN 06/27/24 07/18/24 History oxyCODONE-APAP 5-325MG [Percocet 1 tab PO Q6HR PRN 06/27/24 07/18/24 History 5-325 mg] Cefepime [Maxipime] 2 gm IVPB Q8HR each 07/06/24 07/18/24 Rx Clopidogrel [Plavix] 75 mg PO DAILY #0 07/06/24 07/18/24 Rx DULoxetine HCL [Cymbalta] 60 mg PO DAILY #30 cap 07/06/24 07/18/24 Rx Famotidine [Pepcid] 20 mg PO BID #60 tab 07/06/24 07/18/24 Rx Nystatin 100,000 Unit/ml Susp 500,000 unit PO QID #360 ml 07/06/24 07/18/24 Rx [Mycostatin Oral Susp] metroNIDAZOLE [Flagyl] 500 mg PO TID #126 tab 07/06/24 07/18/24 Rx Ondansetron [Zofran] 4 mg PO Q8H PRN 07/18/24 07/18/24 History oxyCODONE HCL [oxyCODONE HCL (IR)] 10 mg PO Q4H PRN 07/18/24 07/18/24 History Allergies Allergy/AdvReac Type Severity Reaction Status Date / Time Iodinated Contrast Media Allergy Wheezing/hi Verified 07/18/24 10:16 ves iodine Allergy Wheezing/hi Verified 07/18/24 10:16 ves Physical Exam Vitals: Vital Signs Temp Pulse Resp BP Pulse Ox 07/18/24 13:42 74 16 98/62 99 07/18/24 10:13 98.7 F 89 16 92/69 100 Intake and Output 07/17/24 07/18/24 07/18/24 22:59 06:59 14:59 Other: Weight 74.843 kg PHYSICAL EXAMINATION: Patient is lying in the bed, no acute distress, awake alert and oriented. Lethargic and sleepy.. HEENT: Normocephalic. Neck is supple. Pupils reactive. Nostrils clear. Oral cavity is moist. Neck reveals no JVD, carotid bruits, or thyromegaly. CHEST EXAMINATION: Trachea is central. Symmetrical expansion. Lung gandhi clear to auscultation and percussion. CARDIAC: Normal S1, S2 with no gallops. No murmurs ABDOMEN: Soft. Bowel sounds present. Abdominal wound and sacral wounds with wound VAC. No organomegaly. No abdominal bruits. Extremities: reveal no edema. No clubbing or cyanosis Neurologically awake, alert, oriented x 1-2 able to move all extremities.. No gross focal deficits noted Skin: No rash or skin lesions. Psychiatric: Coperative. Nonsuicidal Musculoskeletal: No joint swelling or deformity. Results CBC & Chem 7: 07/20/24 06:40 07/20/24 06:40 Labs: Abnormal Lab Results - Last 24 Hours (Table) 07/18/24 07/18/24 07/18/24 Range/Units 10:54 11: 11:04 Hgb 9.8 L (11.4-16.0) gm/dL Hct 31.7 L (34.0-46.0) % MCHC 30.9 L (31.0-37.0) g/dL RDW 19.3 H (11.5-15.5) % Lymphocytes # 0.9 L (1.0-4.8) k/uL PT 15.3 H (10.0-12.5) sec INR 1.5 H (<1.2) APTT 40.1 H (22.0-30.0) sec Sodium (137-145) mmol/L Chloride (98-107) mmol/L Carbon Dioxide (22-30) mmol/L BUN (7-17) mg/dL Total Protein (6.3-8.2) g/dL Albumin (3.5-5.0) g/dL Urine Appearance Cloudy H (Clear) Urine Protein 2+ H (Negative) Urine Ketones 1+ H (Negative) Urine Blood Large H (Negative) Urine Nitrite Positive H (Negative) Ur Leukocyte Esterase Large H (Negative) Urine RBC 174 H (0-5) /hpf Urine WBC 111 H (0-5) /hpf Calcium Oxalate Crystal Occasional H (None) /hpf Urine Mucus Rare H (None) /hpf Urine Yeast (Budding) Many H (None) /hpf Ur Oxycodone Screen (NotDetected) U Methamphetamines Scrn (NotDetected) Urine Cocaine Screen (NotDetected) 07/18/24 07/18/24 Range/Units 11:04 11:04 Hgb (11.4-16.0) gm/dL Hct (34.0-46.0) % MCHC (31.0-37.0) g/dL RDW (11.5-15.5) % Lymphocytes # (1.0-4.8) k/uL PT (10.0-12.5) sec INR (<1.2) APTT (22.0-30.0) sec Sodium 134 L (137-145) mmol/L Chloride 110 H (98-107) mmol/L Carbon Dioxide 20 L (22-30) mmol/L BUN 35 H (7-17) mg/dL Total Protein 5.8 L (6.3-8.2) g/dL Albumin 1.7 L (3.5-5.0) g/dL Urine Appearance (Clear) Urine Protein (Negative) Urine Ketones (Negative) Urine Blood (Negative) Urine Nitrite (Negative) Ur Leukocyte Esterase (Negative) Urine RBC (0-5) /hpf Urine WBC (0-5) /hpf Calcium Oxalate Crystal (None) /hpf Urine Mucus (None) /hpf Urine Yeast (Budding) (None) /hpf Ur Oxycodone Screen Detected H (NotDetected) U Methamphetamines Scrn Detected H (NotDetected) Urine Cocaine Screen Detected H (NotDetected) Thrombosis Risk Factor Assmnt - DVT/VTE Prophylaxis DVT/VTE Prophylaxis: Pharmacologic Prophylaxis ordered Assessment and Plan Assessment: Altered mental status due to metabolic and toxic encephalopathy UDS positive for oxycodone, methamphetamine send cocaine. Dehydration volume depletion Possible urinary tract infection Recent infected sacral ulcer unstageable failed outpatient therapy status post surgical debridement and wound cultures growing Proteus and Enterococcus patient is on IV antibiotics in the form of surgery recommend metronidazole via PICC line. Patient was discharged on 07/06/2024 Paroxysmal atrial fibrillation not on anticoagulation. Patient is taking aspirin and Plavix Hypertension Hyperlipidemia Normocytic anemia DVT prophylaxis and GI prophylax with heparin subcu and PPI Plan: Patient will be continued on IV hydration with normal saline. Patient was given a dose of Levaquin IV in the ER. Continue with cefepime and metronidazole. Follow-up urine culture report. Continue with home medications including metoprolol and GI and DVT prophylaxis. Follow-up closely. PT OT will be consulted. Continue with wound care with the wound VAC. Discussed with the patient and her daughter at bedside in detail. Prognosis is guarded at this time. Time with Patient: Greater than 30
[2024-07-18] MEDS: FAMOTIDINE 20 MG TAB PO SCH (22:30)
[2024-07-18] MEDS: METOPROLOL SUCCINATE (ER) 25 MG TAB.ER.24H PO SCH (22:30)
[2024-07-18] MEDS: POTASSIUM CHLORIDE 20 MEQ in WATER FOR INJECTION 1 100ML.BAG IVPB SCH (23:31)
[2024-07-18] MEDS: HYDROmorphone 0.5 MG/0.5 ML SYRINGE IVP PRN (23:32)
[2024-07-18] MEDS: HEPARIN SODIUM,PORCINE 5,000 UNIT/ML 1 ML VIAL SQ SCH (23:32)
[2024-07-19] MEDS: POTASSIUM CHLORIDE ER 20 MEQ TAB.ER PO STA (00:20)
[2024-07-19] MEDS: CEFEPIME 2 GM in SODIUM CHLORIDE 0.9% 100 ML IVPB SCH (04:23)
--- NOTE | 2024-07-19 08:13 | P.CONS ---
History of Present Illness - Reason for Consult Consult date: 07/18/24 UTI Requesting physician: Emily Mcguire - Chief Complaint Weakness x few days - History of Present Illness Patient is a 73-year-old female with a past medical history significant for hypertension hyperlipidemia PR atrial fibrillation in this patient with recent admission to the hospital with a perforated diverticulitis status post laparotomy and diverting colostomy did have abdominal wound dehiscence and has developed sacral pressure ulcer with subsequent admission to the hospital with worsening wound to the sacral area has been diagnosed with the sacral osteomyelitis did have surgical debridement but there was no culture done superficial culture on 06/27/2024 did grew Enterobacter and Proteus Mirabelis and the patient did have a Proteus bacteremia with subsequent blood culture negative, on the basis of the sensitivity patient did get a PICC line and was advised a 6-week course of IV cefepime and oral Flagyl with the patient was currently sitting at home since 07/07/2024 patient also have indwelling Duarte catheter that was placed during last admission and has not been changed since then patient has been brought into the hospital for evaluation of mental status changes that started the day before presentation to hospital as patient was noted to be more weak and lethargic and slow to respond and also noticed to have a decreased urine output for the patient was advised to go to the hospital on arrival to the ER patient was afebrile and no fever have been recorded subsequently patient was not tachycardic or hypotensive or hypoxic patient did have a white count of 8.7 with no left shift creatinine 0.62 liver enzymes are normal urine has been positive ureterocele was positive for oxycodone methamphetamine and cocaine with concern for possible catheter assisted UTI patient has been admitted to hospital continue with cefepime and Flagyl infectious disease was consulted for further management of antibiotic therapy patient did have a CT of the brain that was negative for any bleed chest x-ray no acute pulmonary process Review of Systems Positive point and negatives has been mentioned in the HPI, complete review of systems was performed and all other systems are negative Past Medical History Past Medical History: Atrial Fibrillation, Hyperlipidemia, Hypertension, Myocardial Infarction ([place]) Additional Past Medical History / Comment(s): stage 4 pressure ulcer on buttocks Last Myocardial Infarction Date:: 09/07/2023 History of Any Multi-Drug Resistant Organisms: MRSA Year Discovered:: 06/27/24 MDRO Source:: coccyx Past Surgical History: Heart Catheterization With Stent Additional Past Surgical History / Comment(s): Cardiac stents, perferated bowel with ostomy Past Anesthesia/Blood Transfusion Reactions: No Reported Reaction Date of Last Stent Placement:: 09/07/2023 Past Psychological History: No Psychological Hx Reported Smoking Status: Never smoker Past Alcohol Use History: None Reported Past Drug Use History: None Reported Medications and Allergies Home Medications Medication Instructions Recorded Confirmed Type Aspirin EC [Ecotrin Low Dose] 81 mg PO DAILY 12/02/17 07/18/24 History Atorvastatin [Lipitor] 40 mg PO DAILY #90 tab 09/11/23 07/18/24 Rx Nitroglycerin Sl Tabs [Nitrostat] 0.4 mg SL Q5M PRN 05/09/24 07/18/24 History Metoprolol Succinate [Metoprolol 25 mg PO BID 06/27/24 07/18/24 History Succinate ER] Prochlorperazine [Compazine] 10 mg PO Q6H PRN 06/27/24 07/18/24 History oxyCODONE-APAP 5-325MG [Percocet 1 tab PO Q6HR PRN 06/27/24 07/18/24 History 5-325 mg] Cefepime [Maxipime] 2 gm IVPB Q8HR each 07/06/24 07/18/24 Rx Clopidogrel [Plavix] 75 mg PO DAILY #0 07/06/24 07/18/24 Rx DULoxetine HCL [Cymbalta] 60 mg PO DAILY #30 cap 07/06/24 07/18/24 Rx Famotidine [Pepcid] 20 mg PO BID #60 tab 07/06/24 07/18/24 Rx Nystatin 100,000 Unit/ml Susp 500,000 unit PO QID #360 ml 07/06/24 07/18/24 Rx [Mycostatin Oral Susp] metroNIDAZOLE [Flagyl] 500 mg PO TID #126 tab 07/06/24 07/18/24 Rx Ondansetron [Zofran] 4 mg PO Q8H PRN 07/18/24 07/18/24 History oxyCODONE HCL [oxyCODONE HCL (IR)] 10 mg PO Q4H PRN 07/18/24 07/18/24 History Allergies Allergy/AdvReac Type Severity Reaction Status Date / Time Iodinated Contrast Media Allergy Wheezing/hi Verified 07/18/24 10:16 ves iodine Allergy Wheezing/hi Verified 07/18/24 10:16 ves Physical Exam Vitals: Vital Signs Temp Pulse Resp BP Pulse Ox 07/18/24 10:13 98.7 F 89 16 92/69 100 Intake and Output 07/17/24 07/18/24 07/18/24 22:59 06:59 14:59 Other: Weight 74.843 kg GENERAL DESCRIPTION: Elderly female lying in bed, no distress. No tachypnea or accessory muscle of respiration use. HEENT: Shows Pallor , no scleral icterus. Oral mucous membrane is dry. No pharyngeal erythema or thrush NECK: Trachea central, no thyromegaly. LUNGS: Unlabored breathing. Clear to auscultation anteriorly. No wheeze or crackle. HEART: S1, S2, regular rate and rhythm. No loud murmur ABDOMEN: Soft, no tenderness , guarding or rigidity, no organomegaly EXTREMITIES: Swelling to the leg but no redness SKIN: Sacral and abdominal wound is currently covered with a wound VAC pictures were reviewed that has been taken by the daughter wound base did have slough tissue and there was surrounding bruising on the wound VAC on the sacral wound NEUROLOGICAL: The patient is awake, alert, oriented x3, mood and affect normal. Results CBC & Chem 7: 07/18/24 11:04 07/18/24 11:04 Labs: Abnormal Lab Results - Last 24 Hours (Table) 07/18/24 07/18/24 07/18/24 Range/Units 10:54 11:04 11:04 Hgb 9.8 L (11.4-16.0) gm/dL Hct 31.7 L (34.0-46.0) % MCHC 30.9 L (31.0-37.0) g/dL RDW 19.3 H (11.5-15.5) % Lymphocytes # 0.9 L (1.0-4.8) k/uL PT 15.3 H (10.0-12.5) sec INR 1.5 H (<1.2) APTT 40.1 H (22.0-30.0) sec Sodium (137-145) mmol/L Chloride (98-107) mmol/L Carbon Dioxide (22-30) mmol/L BUN (7-17) mg/dL Total Protein (6.3-8.2) g/dL Albumin (3.5-5.0) g/dL Urine Appearance Cloudy H (Clear) Urine Protein 2+ H (Negative) Urine Ketones 1+ H (Negative) Urine Blood Large H (Negative) Urine Nitrite Positive H (Negative) Ur Leukocyte Esterase Large H (Negative) Urine RBC 174 H (0-5) /hpf Urine WBC 111 H (0-5) /hpf Calcium Oxalate Crystal Occasional H (None) /hpf Urine Mucus Rare H (None) /hpf Urine Yeast (Budding) Many H (None) /hpf Ur Oxycodone Screen (NotDetected) U Methamphetamines Scrn (NotDetected) Urine Cocaine Screen (NotDetected) 07/18/24 07/18/24 Range/Units 11:04 11:04 Hgb (11.4-16.0) gm/dL Hct (34.0-46.0) % MCHC (31.0-37.0) g/dL RDW (11.5-15.5) % Lymphocytes # (1.0-4.8) k/uL PT (10.0-12.5) sec INR (<1.2) APTT (22.0-30.0) sec Sodium 134 L (137-145) mmol/L Chloride 110 H (98-107) mmol/L Carbon Dioxide 20 L (22-30) mmol/L BUN 35 H (7-17) mg/dL Total Protein 5.8 L (6.3-8.2) g/dL Albumin 1.7 L (3.5-5.0) g/dL Urine Appearance (Clear) Urine Protein (Negative) Urine Ketones (Negative) Urine Blood (Negative) Urine Nitrite (Negative) Ur Leukocyte Esterase (Negative) Urine RBC (0-5) /hpf Urine WBC (0-5) /hpf Calcium Oxalate Crystal (None) /hpf Urine Mucus (None) /hpf Urine Yeast (Budding) (None) /hpf Ur Oxycodone Screen Detected H (NotDetected) U Methamphetamines Scrn Detected H (NotDetected) Urine Cocaine Screen Detected H (NotDetected) Assessment and Plan (1) UTI (urinary tract infection) Current Visit: Yes Status: Acute Code(s): N39.0 - URINARY TRACT INFECTION, SITE NOT SPECIFIED SNOMED Code(s): 06158718 (2) Sacral osteomyelitis Current Visit: No Status: Acute Code(s): M46.28 - OSTEOMYELITIS OF VERTEBRA, SACRAL AND SACROCOCCYGEAL REGION SNOMED Code(s): 704473331 (3) Sacral ulcer Current Visit: No Status: Acute Code(s): L98.429 - NON-PRESSURE CHRONIC ULCER OF BACK WITH UNSPECIFIED SEVERITY SNOMED Code(s): 24463399 Plan: 1patient presented to hospital with weakness mental status change which is likely multifactorial there was concern for possible catheter assisted UTI however the patient urine drug screen is also positive for oxycodone methamphetamines and cocaine may be contributing to some of her weakness and mental status changes 2-patient also have a infected sacral pressure ulcer with a recent Proteus bacteremia for the patient is currently on cefepime in the outpatient setting 3-change her Duarte catheter obtain urine culture from the new Duarte 4-we will continue patient cefepime and Flagyl while waiting for the culture to finalize 5-wound care has been consulted for management of her wound await the recommendation We will follow on clinical condition and cultures to further adjust medication if needed Thank you for this consultation we will follow the patient along with you Dictation was produced using [employer] dictation software. please excuse any grammatical, word or spelling errors. Time with Patient: Greater than 30
[2024-07-19 08:30] LABS: Basophils # (A) 0.02 X 10*3/uL (0.00-0.10); Basophils % (A) 0.2 %; Eosinophils # (A) 0 X 10*3/uL (0.04-0.35); Eosinophils % (A) 0 %; HGB 9.2 g/dL (12.0-15.0); Lymphocytes # (A) 1.35 X 10*3/uL (0.90-5.00); Lymphocytes % (A) 12.5 %; MCH 25.2 pg (27.0-32.0); MCHC 29.7 g/dL (32.0-37.0); MCV 84.9 FL (80.0-97.0); Mean Platelet Volume 9.7 FL (9.5-12.2); Monocytes # (A) 1.17 X 10*3/uL (0.20-1.00); Monocytes % (A) 10.9 %; NRBC Per 100 WBC 0 X 10*3/uL (0.00-0.01); Neutrophils # (A) 8.17 X 10*3/uL (1.80-7.70); Neutrophils % (A) 75.9 %; Platelet Count 264 X 10*3/uL (140-440); RBC 3.65 X 10*6/uL (4.10-5.20); RDW 21.1 % (11.5-14.5); WBC 10.76 X 10*3/uL (4.50-10.00)
[2024-07-19] MEDS: CLOPIDOGREL 75 MG TAB PO SCH (10:00)
[2024-07-19] MEDS: PANTOPRAZOLE 40 MG/10 ML VIAL IV SCH (10:00)
[2024-07-19] MEDS: DULoxetine HCL 60 MG CAPSULE.DR PO SCH (10:00)
[2024-07-19] MEDS: ATORVASTATIN 40 MG TAB PO SCH (10:00)
[2024-07-19] MEDS: ASPIRIN 81 MG PO SCH (10:00)
[2024-07-19] MEDS: oxyCODONE-APAP 5-325MG 1 EACH TAB PO PRN (10:06)
[2024-07-19 10:21] LABS: Blood Urea Nitrogen 32.3 mg/dL (9.0-27.0); Calcium 8.2 mg/dL (8.7-10.3); Carbon Dioxide 17.1 mmol/L (21.6-31.8); Chloride 113 mmol/L (96-109); Glucose 60 mg/dL (70-110); Potassium 4.3 mmol/L (3.5-5.5); Sodium 136 mmol/L (135-145)
--- NOTE | 2024-07-19 11:06 | P.CONS ---
History of Present Illness - Reason for Consult Consult date: 07/19/24 wound care - History of Present Illness This is a 73-year-old patient being seen on 4 S. for management of stage IV pressure ulcer sacrum and a open ulceration with muscle involvement without necrosis to the abdomen. Patient has been utilizing the negative pressure wound VAC to the abdominal ulceration for the last several months. Patient had a perforated bowel resulting in a open surgical intervention. Patient has been utilizing negative pressure wound VAC without any difficulties. Patient then developed a stage IV pressure ulcer With a recent surgical debridement. Patient has been utilizing a negative pressure wound VAC to the sacral area. Due to only having 1 wound VAC the area was being bridged from the abdomen to the sacrum. A second wound VAC has been ordered. Patient does not have a specialty bed at home. She is seeing [facility] care who is coming in for wound debridements due to the inability to travel. The sacral ulceration has slough and nonviable tissue undermining noted with granulation. Concerns related to proper sealing of the ulceration due to the location near the anus. Review Of Systems: Constitutional: No fever, no chills, no night sweats. No weight change. No weakness, fatigue or lethargy. No daytime sleepiness. Integumentary:reports wounds, no lesions. No rash or pruritus. No unusual bruising. No change in hair or nails. Physical exam: General Appearance: Alert, cooperative, no distress, appears stated age. Skin: See HPI all other Skin color, texture, tugor normal, no rashes or lesions. Neurologic: Alert oriented x3 Assessment: 1. Stage IV pressure ulcer of sacrum 2. Nonhealing ulceration with muscle involvement without necrosis abdomen Plan: 1. Apply negative pressure wound VAC to the sacral ulceration with white and black foam 150 mmHg continuous pressure changing Thursday. Turn patient every 2 hours. Utilize a offloading surface. Abdominal ulceration apply negative pressure wound VAC at 150 mmHg black foam changing Thursday. Patient will continue to follow with home care upon discharge. Thank you for the consultation any questions please contact the wound care center DNP note has been reviewed and discussed with Dr. Babcock and the impression and plan of care has been directed as dictated. Past Medical History Past Medical History: Atrial Fibrillation, Hyperlipidemia, Hypertension, Myocardial Infarction (AL) Additional Past Medical History / Comment(s): stage 4 pressure ulcer on buttocks Last Myocardial Infarction Date:: 09/07/2023 History of Any Multi-Drug Resistant Organisms: MRSA Year Discovered:: 06/27/24 MDRO Source:: coccyx Past Surgical History: Heart Catheterization With Stent Additional Past Surgical History / Comment(s): Cardiac stents, perferated bowel with ostomy Past Anesthesia/Blood Transfusion Reactions: No Reported Reaction Date of Last Stent Placement:: 09/07/2023 Past Psychological History: No Psychological Hx Reported Smoking Status: Never smoker Past Alcohol Use History: None Reported Past Drug Use History: None Reported Medications and Allergies Home Medications Medication Instructions Recorded Confirmed Type Aspirin EC [Ecotrin Low Dose] 81 mg PO DAILY 12/02/17 07/18/24 History Atorvastatin [Lipitor] 40 mg PO DAILY #90 tab 09/11/23 07/18/24 Rx Nitroglycerin Sl Tabs [Nitrostat] 0.4 mg SL Q5M PRN 05/09/24 07/18/24 History Metoprolol Succinate [Metoprolol 25 mg PO BID 06/27/24 07/18/24 History Succinate ER] Prochlorperazine [Compazine] 10 mg PO Q6H PRN 06/27/24 07/18/24 History oxyCODONE-APAP 5-325MG [Percocet 1 tab PO Q6HR PRN 06/27/24 07/18/24 History 5-325 mg] Cefepime [Maxipime] 2 gm IVPB Q8HR each 07/06/24 07/18/24 Rx Clopidogrel [Plavix] 75 mg PO DAILY #0 07/06/24 07/18/24 Rx DULoxetine HCL [Cymbalta] 60 mg PO DAILY #30 cap 07/06/24 07/18/24 Rx Famotidine [Pepcid] 20 mg PO BID #60 tab 07/06/24 07/18/24 Rx Nystatin 100,000 Unit/ml Susp 500,000 unit PO QID #360 ml 07/06/24 07/18/24 Rx [Mycostatin Oral Susp] metroNIDAZOLE [Flagyl] 500 mg PO TID #126 tab 07/06/24 07/18/24 Rx Ondansetron [Zofran] 4 mg PO Q8H PRN 07/18/24 07/18/24 History oxyCODONE HCL [oxyCODONE HCL (IR)] 10 mg PO Q4H PRN 07/18/24 07/18/24 History Allergies Allergy/AdvReac Type Severity Reaction Status Date / Time Iodinated Contrast Media Allergy Wheezing/hi Verified 07/18/24 10:16 ves iodine Allergy Wheezing/hi Verified 07/18/24 10:16 ves Physical Exam Vitals: Vital Signs Temp Pulse Pulse Resp BP BP Pulse Ox 07/19/24 07:23 97.5 F L 96 16 88/60 100 07/19/24 02:00 99.2 F 89 13 94/64 99 07/18/24 19:49 85 16 112/57 98 07/18/24 16:39 88 16 106/66 98 07/18/24 13:42 74 16 98/62 99 Intake and Output 07/18/24 07/19/24 07/19/24 22:59 06:59 14:59 Output Total 200 Balance -200 Output: Urine 200 Other: Voiding Method Indwelling Catheter Indwelling Catheter Weight 74.843 kg Results CBC & Chem 7: 07/19/24 06:25 07/19/24 06:25 Labs: Abnormal Lab Results - Last 24 Hours (Table) 07/18/24 07/18/24 07/18/24 Range/Units 10:54 11:04 11:04 WBC (4.50-10.00) X 10*3/uL RBC (4.10-5.20) X 10*6/uL Hgb 9.8 L (11.4-16.0) gm/dL Hct 31.7 L (34.0-46.0) % MCH (27.0-32.0) pg MCHC 30.9 L (31.0-37.0) g/dL RDW 19.3 H (11.5-15.5) % Immature Gran # (0.00-0.04) X 10*3/uL Neutrophils # (1.80-7.70) X 10*3/uL Lymphocytes # 0.9 L (1.0-4.8) k/uL Monocytes # (0.20-1.00) X 10*3/uL Eosinophils # (0.04-0.35) X 10*3/uL PT 15.3 H (10.0-12.5) sec INR 1.5 H (<1.2) APTT 40.1 H (22.0-30.0) sec Sodium (137-145) mmol/L Chloride (98-107) mmol/L Carbon Dioxide (22-30) mmol/L BUN (7-17) mg/dL Creatinine (0.6-1.5) mg/dL BUN/Creatinine Ratio (12.00-20.00) Ratio Glucose (70-110) mg/dL Calcium (8.7-10.3) mg/dL Total Protein (6.3-8.2) g/dL Albumin (3.5-5.0) g/dL Urine Appearance Cloudy H (Clear) Urine Protein 2+ H (Negative) Urine Ketones 1+ H (Negative) Urine Blood Large H (Negative) Urine Nitrite Positive H (Negative) Ur Leukocyte Esterase Large H (Negative) Urine RBC 174 H (0-5) /hpf Urine WBC 111 H (0-5) /hpf Calcium Oxalate Crystal Occasional H (None) /hpf Urine Mucus Rare H (None) /hpf Urine Yeast (Budding) Many H (None) /hpf Ur Oxycodone Screen (NotDetected) U Methamphetamines Scrn (NotDetected) Urine Cocaine Screen (NotDetected) 07/18/24 07/18/24 07/19/24 Range/Units 11:04 11:04 06:25 WBC 10.76 H (4.50-10.00) X 10*3/uL RBC 3.65 L (4.10-5.20) X 10*6/uL Hgb 9.2 L (11.4-16.0) gm/dL Hct 31.0 L (34.0-46.0) % MCH 25.2 L (27.0-32.0) pg MCHC 29.7 L (31.0-37.0) g/dL RDW 21.1 H (11.5-15.5) % Immature Gran # 0.05 H (0.00-0.04) X 10*3/uL Neutrophils # 8.17 H (1.80-7.70) X 10*3/uL Lymphocytes # (1.0-4.8) k/uL Monocytes # 1.17 H (0.20-1.00) X 10*3/uL Eosinophils # 0 L (0.04-0.35) X 10*3/uL PT (10.0-12.5) sec INR (<1.2) APTT (22.0-30.0) sec Sodium 134 L (137-145) mmol/L Chloride 110 H (98-107) mmol/L Carbon Dioxide 20 L (22-30) mmol/L BUN 35 H (7-17) mg/dL Creatinine (0.6-1.5) mg/dL BUN/Creatinine Ratio (12.00-20.00) Ratio Glucose (70-110) mg/dL Calcium (8.7-10.3) mg/dL Total Protein 5.8 L (6.3-8.2) g/dL Albumin 1.7 L (3.5-5.0) g/dL Urine Appearance (Clear) Urine Protein (Negative) Urine Ketones (Negative) Urine Blood (Negative) Urine Nitrite (Negative) Ur Leukocyte Esterase (Negative) Urine RBC (0-5) /hpf Urine WBC (0-5) /hpf Calcium Oxalate Crystal (None) /hpf Urine Mucus (None) /hpf Urine Yeast (Budding) (None) /hpf Ur Oxycodone Screen Detected H (NotDetected) U Methamphetamines Scrn Detected H (NotDetected) Urine Cocaine Screen Detected H (NotDetected) 07/19/24 Range/Units 06:25 WBC (4.50-10.00) X 10*3/uL RBC (4.10-5.20) X 10*6/uL Hgb (11.4-16.0) gm/dL Hct (34.0-46.0) % MCH (27.0-32.0) pg MCHC (31.0-37.0) g/dL RDW (11.5-15.5) % Immature Gran # (0.00-0.04) X 10*3/uL Neutrophils # (1.80-7.70) X 10*3/uL Lymphocytes # (1.0-4.8) k/uL Monocytes # (0.20-1.00) X 10*3/uL Eosinophils # (0.04-0.35) X 10*3/uL PT (10.0-12.5) sec INR (<1.2) APTT (22.0-30.0) sec Sodium (137-145) mmol/L Chloride 113 H (98-107) mmol/L Carbon Dioxide 17.1 L (22-30) mmol/L BUN 32.3 H (7-17) mg/dL Creatinine 0.5 L (0.6-1.5) mg/dL BUN/Creatinine Ratio 64.60 H (12.00-20.00) Ratio Glucose 60 L (70-110) mg/dL Calcium 8.2 L (8.7-10.3) mg/dL Total Protein (6.3-8.2) g/dL Albumin (3.5-5.0) g/dL Urine Appearance (Clear) Urine Protein (Negative) Urine Ketones (Negative) Urine Blood (Negative) Urine Nitrite (Negative) Ur Leukocyte Esterase (Negative) Urine RBC (0-5) /hpf Urine WBC (0-5) /hpf Calcium Oxalate Crystal (None) /hpf Urine Mucus (None) /hpf Urine Yeast (Budding) (None) /hpf Ur Oxycodone Screen (NotDetected) U Methamphetamines Scrn (NotDetected) Urine Cocaine Screen (NotDetected) Assessment and Plan (1) Pressure injury of sacral region, stage 4 Current Visit: Yes Status: Acute Code(s): L89.154 - PRESSURE ULCER OF SACRAL REGION, STAGE 4 SNOMED Code(s): 60971803073034 (2) Non-pressure chronic ulcer of skin of other sites with muscle involvement without evidence of necrosis Current Visit: No Status: Acute Code(s): L98.495 - NON-[facility] SKIN/ OTH SITE WITH MSL INVL W/O EVD OF NECR SNOMED Code(s): 92210107
[2024-07-19 11:35] LABS: Cocaine Screen,Urine Not Detected (NotDetected); Opiate Screen,Urine Detected (NotDetected); Phencyclidine Screen,Urine Not Detected (NotDetected); Urn Cannabinoid Scrn Not Detected (NotDetected)
[2024-07-19 11:36] LABS: Amphetamine Screen,Urine Not Detected (NotDetected); Barbiturate Screen,Urine Not Detected (NotDetected); Benzodiazepines Screen,Urine Not Detected (NotDetected); Methadone Screen, Urine Not Detected (NotDetected); Oxycodone Screen, Urine Detected (NotDetected); Tricyclic Antidepressant,Urine Not Detected (NotDetected)
[2024-07-19] MEDS: ONDANSETRON 4 MG/2 ML VIAL IVP PRN (19:55)
--- NOTE | 2024-07-19 22:38 | P.PN ---
Subjective Progress Note Date: 07/19/24 Principal diagnosis: Reason for follow-up is infected sacral ulcer and UTI Patient is a 73-year-old female with a past medical history significant for hypertension hyperlipidemia PR atrial fibrillation, perforated diverticulitis with an abscess abdominal wound dehiscence and a sacral pressure ulcer/osteomyelitis has been brought back to the hospital concerning for mental status changes and possible UTI. On today's evaluation that is 07/19/2024,the patient denies any fever or any chills, patient is breathing comfortably on room air, the patient denies chest pain shortness of breath and no significant cough, patient did have some nausea but no vomiting apparently diet has been ingested concerning for possible aspiration. Patient white count is 10.76 creatinine is 0.5 Objective - Vital Signs Vital signs: Vital Signs Temp 97.5 F L 07/19/24 07:23 Pulse 96 07/19/24 07:23 Resp 16 07/19/24 07:23 BP 88/60 07/19/24 07:23 Pulse Ox 100 07/19/24 07:23 FiO2 Intake & Output 07/18/24 07/19/24 07/19/24 18:59 06:59 18:59 Output Total 200 Balance -200 Weight 74.843 kg 74.843 kg Output: Urine 200 Other: Voiding Method Indwelling Catheter Indwelling Catheter - Exam GENERAL DESCRIPTION: An elderly female lying in bed in no distress RESPIRATORY SYSTEM: Unlabored breathing , decreased breath sounds at bases HEART: S1 S2 regular rate and rhythm , ABDOMEN: Soft , no tenderness EXTREMITIES: Swelling to bilateral lower extremity no redness - Labs CBC & Chem 7: 07/19/24 06:25 07/19/24 06:25 Labs: Abnormal Lab Results - Last 24 Hours (Table) 07/19/24 07/19/24 07/19/24 Range/Units 06:25 06:25 11:14 WBC 10.76 H (4.50-10.00) X 10*3/uL RBC 3.65 L (4.10-5.20) X 10*6/uL Hgb 9.2 L (12.0-15.0) g/dL Hct 31.0 L (37.2-46.3) % MCH 25.2 L (27.0-32.0) pg MCHC 29.7 L (32.0-37.0) g/dL RDW 21.1 H (11.5-14.5) % Immature Gran # 0.05 H (0.00-0.04) X 10*3/uL Neutrophils # 8.17 H (1.80-7.70) X 10*3/uL Monocytes # 1.17 H (0.20-1.00) X 10*3/uL Eosinophils # 0 L (0.04-0.35) X 10*3/uL Chloride 113 H (96-109) mmol/L Carbon Dioxide 17.1 L (21.6-31.8) mmol/L BUN 32.3 H (9.0-27.0) mg/dL Creatinine 0.5 L (0.6-1.5) mg/dL BUN/Creatinine Ratio 64.60 H (12.00-20.00) Ratio Glucose 60 L (70-110) mg/dL Calcium 8.2 L (8.7-10.3) mg/dL Urine Opiates Screen Detected H (NotDetected) Ur Oxycodone Screen Detected H (NotDetected) Microbiology - Last 24 Hours (Table) 07/18/24 10:54 Urine Culture - Final Urine,Voided Daria krusei Assessment and Plan (1) UTI (urinary tract infection) Current Visit: Yes Status: Acute Code(s): N39.0 - URINARY TRACT INFECTION, SITE NOT SPECIFIED SNOMED Code(s): 02087969 (2) Sacral osteomyelitis Current Visit: No Status: Acute Code(s): M46.28 - OSTEOMYELITIS OF VERTEBRA, SACRAL AND SACROCOCCYGEAL REGION SNOMED Code(s): 452851152 (3) Sacral ulcer Current Visit: No Status: Acute Code(s): L98.429 - NON-PRESSURE CHRONIC ULCER OF BACK WITH UNSPECIFIED SEVERITY SNOMED Code(s): 68826723 Plan: 1patient presented to hospital with weakness mental status change which is likely multifactorial there was concern for possible catheter assisted UTI however the patient urine drug screen is also positive for oxycodone metham phetamines and cocaine may be contributing to some of her weakness and mental status changes 2-patient also have a infected sacral pressure ulcer with a recent Proteus bacteremia for the patient is currently on cefepime in the outpatient setting 3-Duarte catheter has been changed and cultures are currently pending 4-patient to continue cefepime and Flagyl while waiting for the culture to finalize 5-local wound care per the wound care team who is following the patient Dictation was produced using [employer] dictation software. please excuse any grammatical, word or spelling errors. Time with Patient: Less than 30
[2024-07-20 07:19] LABS: Anisocytosis Slight; Basophils # (A) 0.1 k/uL (0-0.2); Basophils % (A) 1 %; Eosinophils % (A) 0 %; HCT 27.2 % (34.0-46.0); HGB 8.5 gm/dL (11.4-16.0); Hypochromasia Marked; Lymphocytes # (A) 1.1 k/uL (1.0-4.8); Lymphocytes % (A) 12 %; MCH 26.2 pg (25.0-35.0); MCHC 31.1 g/dL (31.0-37.0); MCV 84.2 fL (80.0-100.0); Mean Platelet Volume 8.6; Microcytosis Slight; Monocytes # (A) 0.6 k/uL (0-1.0); Monocytes % (A) 7 %; Neutrophils # (A) 6.8 k/uL (1.3-7.7); Neutrophils % (A) 79 %; Platelet Count 266 k/uL (150-450); RBC 3.23 m/uL (3.80-5.40); RDW 19.8 % (11.5-15.5); WBC 8.6 k/uL (3.8-10.6)
[2024-07-20 07:34] LABS: African American GFR (CKD) >90 (>60 ml/min/1.73 sqM); Anion Gap 7 mmol/L; Blood Urea Nitrogen 37 mg/dL (7-17); Calcium 8.1 mg/dL (8.4-10.2); Carbon Dioxide 13 mmol/L (22-30); Chloride 119 mmol/L (98-107); Glucose 60 mg/dL (74-99); Non-African American GFR(CKD) 88 (>60 ml/min/1.73 sqM); Sodium 139 mmol/L (137-145)
[2024-07-20 07:48] LABS: Potassium 5.6 mmol/L (3.5-5.1)
[2024-07-20 07:51] LABS: Crenated RBC Present; Poikilocytosis (M) Present
[2024-07-20] MEDS: VORICONAZOLE 200 MG TAB PO SCH (10:28)
--- NOTE | 2024-07-20 11:50 | P.PN ---
Subjective Progress Note Date: 07/20/24 Principal diagnosis: Reason for follow-up is infected sacral ulcer and UTI Patient is a 73-year-old female with a past medical history significant for hypertension hyperlipidemia HI atrial fibrillation, perforated diverticulitis with an abscess abdominal wound dehiscence and a sacral pressure ulcer/osteomyelitis has been brought back to the hospital concerning for mental status changes and possible UTI. On today's evaluation that is 07/20/2024,the patient remains to be afebrile, patient is on room air not requiring supplemental oxygen patient seem to be more lethargic as reported by the daughter at the bedside and seem to have difficulty with swallowing nausea but no vomiting has been reported or diarrhea. Patient white count is 8.6, creatinine 0.63 urine is now showing Daria Krusei Objective - Vital Signs Vital signs: Vital Signs Temp 98.2 F 07/20/24 08:00 Pulse 108 H 07/20/24 08:00 Resp 15 07/20/24 08:00 BP 102/61 07/20/24 08:00 Pulse Ox 96 07/20/24 08:00 FiO2 Intake & Output 07/19/24 07/20/24 07/20/24 18:59 06:59 18:59 Output Total 190 Balance -190 Output: Urine 190 Other: Voiding Method Indwelling Catheter Indwelling Catheter - Exam GENERAL DESCRIPTION: An elderly female lying in bed in no distress RESPIRATORY SYSTEM: Unlabored breathing , decreased breath sounds at bases HEART: S1 S2 regular rate and rhythm , ABDOMEN: Soft , no tenderness EXTREMITIES: Swelling to bilateral lower extremity no redness - Labs CBC & Chem 7: 07/20/24 06:40 07/20/24 06:40 Labs: Abnormal Lab Results - Last 24 Hours (Table) 07/19/24 07/19/24 07/20/24 Range/Units 06:25 11:14 06:40 RBC 3.23 L (3.80-5.40) m/uL Hgb 8.5 L (11.4-16.0) gm/dL Hct 27.2 L (34.0-46.0) % RDW 19.8 H (11.5-15.5) % Potassium (3.5-5.1) mmol/L Chloride 113 H (96-109) mmol/L Carbon Dioxide 17.1 L (21.6-31.8) mmol/L BUN 32.3 H (9.0-27.0) mg/dL Creatinine 0.5 L (0.6-1.5) mg/dL BUN/Creatinine Ratio 64.60 H (12.00-20.00) Ratio Glucose 60 L (70-110) mg/dL Calcium 8.2 L (8.7-10.3) mg/dL Urine Opiates Screen Detected H (NotDetected) Ur Oxycodone Screen Detected H (NotDetected) 07/20/24 Range/Units 06:40 RBC (3.80-5.40) m/uL Hgb (11.4-16.0) gm/dL Hct (34.0-46.0) % RDW (11.5-15.5) % Potassium 5.6 H (3.5-5.1) mmol/L Chloride 119 H (96-109) mmol/L Carbon Dioxide 13 L (21.6-31.8) mmol/L BUN 37 H (9.0-27.0) mg/dL Creatinine (0.6-1.5) mg/dL BUN/Creatinine Ratio (12.00-20.00) Ratio Glucose 60 L (70-110) mg/dL Calcium 8.1 L (8.7-10.3) mg/dL Urine Opiates Screen (NotDetected) Ur Oxycodone Screen (NotDetected) Microbiology - Last 24 Hours (Table) 07/18/24 10:54 Urine Culture - Final Urine,Voided Daria krusei Assessment and Plan (1) UTI (urinary tract infection) Current Visit: Yes Status: Acute Code(s): N39.0 - URINARY TRACT INFECTION, SITE NOT SPECIFIED SNOMED Code(s): 19059782 (2) Sacral osteomyelitis Current Visit: No Status: Acute Code(s): M46.28 - OSTEOMYELITIS OF VERTEBRA, SACRAL AND SACROCOCCYGEAL REGION SNOMED Code(s): 214380625 (3) Sacral ulcer Current Visit: No Status: Acute Code(s): L98.429 - NON-PRESSURE CHRONIC ULCER OF BACK WITH UNSPECIFIED SEVERITY SNOMED Code(s): 08114194 Plan: 1patient presented to hospital with weakness mental status change which is likely multifactorial there was concern for possible catheter assisted UTI however the patient urine drug screen is also positive for oxycodone methamphetamines and cocaine may be contributing to some of her weakness and mental status changes 2-patient also have a infected sacral pressure ulcer with a recent Proteus bacteremia for the patient is currently on cefepime in the outpatient setting 3-Duarte catheter has been changed and cultures are currently growing Daria krusei with a question of possible Duarte colonization as the Duarte has already been changed we will repeat a UA and culture empirically add voriconazole 4-patient to continue cefepime and Flagyl for underlying sacral osteomyelitis 5-with the patient lethargy difficulty with swallowing will benefit from further workup and possible neurology evaluation to rule out central etiology Dictation was produced using [employer] dictation software. please excuse any grammatical, word or spelling errors. Time with Patient: Less than 30
[2024-07-20] MEDS: METOPROLOL TARTRATE 5 MG/5 ML VIAL IVP STA ×2 (12:24→21:42)
[2024-07-20 12:28] LABS: Appearance,Urine Cloudy (Clear); Bacteria,Urine Rare /hpf; Bilirubin,Urine Negative (Negative); Blood,Urine Large (Negative); Budding Yeast,Urine Many /hpf; Calcium Oxalate Crystals,Urine Occasional /hpf; Color,Urine Yellow; Glucose,Urine (UA) Negative (Negative); Hyaline Casts,Urine 3 /lpf (0-2); Hyphae Yeast, Urine Rare /hpf; Ketones,Urine 1+ (Negative); Leukocyte Esterase,Urine Large (Negative); Mucus,Urine Rare /hpf; Nitrite,Urine Negative (Negative); PH, Urine 5.5 (5.0-8.0); Protein,Urine 2+ (Negative); RBC,Urine 62 /hpf (0-5); Specific Gravity,Urine 1.027 (1.001-1.035); Squamous Epithelial Cell,Urine 1 /hpf (0-4); Urobilinogen,Urine <2.0 mg/dL (<2.0); WBC,Urine >182 /hpf (0-5)
[2024-07-20] MEDS: DEXTROSE 5%-0.9% NACL 1,000 ML IV SCH (12:44)
[2024-07-20 18:04] LABS: Glucose,Whole Blood 91 mg/dL (70-110)
[2024-07-20] MEDS: DEXTROSE 50% SYRINGE 50 ML IVP STA (20:55)
[2024-07-20] MEDS: INSULIN REGULAR 100 UNIT/ML VIAL (IV) IV ONE (20:55)
[2024-07-20] MEDS: CALCIUM GLUCONATE IN NACL 1 GM in SALINE 1 100ML.BAG IVPB ONE (20:55)
--- NOTE | 2024-07-20 23:46 | P.PN ---
Subjective Progress Note Date: 07/19/24 Patient is a 72-year-old female with a known history of infected unstageable pressure ulcer of the sacrum with recent debridement with cultures growing Proteus and Enterococcus was sent home on antibiotics in the form of cefepime and metronidazole on 07/06/2024. Other medical problems include CAD status post stent placement, paroxysmal atrial fibrillation not on anticoagulation, hypertension, hyperlipidemia, anemia. Patient present back to the hospital due to altered mental status. According to her daughter patient has been very weak and lethargic since yesterday. Patient has been also becoming slow to respond. Patient would also question but in the middle of sentence she fall back asleep. Home visiting nurse also noticed that her Duarte and also feeling of and is concerned about retaining of urine. Urine is also much darker and also concerned about urinary tract infection. Denied any fever or chills. No cough or sputum production. Patient blood pressure 92/69 pulse is 89 respirations 16 and pulse ox 100% on room air. CT head showed no acute intracranial process. Follow-up MRI can be performed as clinically indicated. Chest x-ray showed no acute pulmonary process. EKG showed atrial fibrillation with heart rate 88. Laboratory data showed WBC 8.7 hemoglobin 9.8 and platelets 317, INR 1.5 Sodium 134 potassium 3.5 chloride 110, BUN 35 and creatinine 0.62 and magnesium 1.6 albumin 1.3 and liver enzymes are not elevated troponin x 1 negative Urinalysis showed cloudy with 2+ protein 1+ ketones nitrite positive large leukocyte esterase with elevated RBCs and WBCs. UDS is positive for oxycodone, methamphetamine and cocaine 07/19/2024 Patient is in the MedSurg unit. Awake alert but lethargic and drowsy. Able to follow simple commands. Patient has been afebrile. Patient was not able to tolerate regular diet and was seen by speech pathology. Started on pured diet with one-to-one supervision. Patient has been continued on normal saline at 75 cc/h. Also on antibiotics now, cefepime and Flagyl. Laboratory data showed WBC 10.7 hemoglobin 9.2 and platelets 264 sodium 136 potassium 4.3 chloride 113 bicarb is 17.1 and BUN 32.3 and creatinine 0.5 blood sugar was 60 and calcium 8.2. Current medications reviewed. Objective - Vital Signs Vital signs: Vital Signs Temp 99.1 F 07/19/24 20:00 Pulse 81 07/19/24 20:00 Resp 13 07/19/24 20:00 BP 84/63 07/19/24 20:00 Pulse Ox 97 07/19/24 20:00 FiO2 Intake & Output 07/19/24 07/19/24 07/20/24 06:59 18:59 06:59 Output Total 200 190 Balance -200 -190 Weight 74.843 kg Output: Urine 200 190 Other: Voiding Method Indwelling Catheter Indwelling Catheter Indwelling Catheter - Exam PHYSICAL EXAMINATION: Patient is lying in the bed, no acute distress, awake alert and oriented. Lethargic and sleepy.. HEENT: Normocephalic. Neck is supple. Pupils reactive. Nostrils clear. Oral cavity is moist. Neck reveals no JVD, carotid bruits, or thyromegaly. CHEST EXAMINATION: Trachea is central. Symmetrical expansion. Lung gandhi clear to auscultation and percussion. CARDIAC: Normal S1, S2 with no gallops. No murmurs ABDOMEN: Soft. Bowel sounds present. Abdominal wound and sacral wounds with wound VAC. No organomegaly. No abdominal bruits. Extremities: reveal no edema. No clubbing or cyanosis Neurologically awake, alert, oriented x 1-2 able to move all extremities.. No gross focal deficits noted Skin: No rash or skin lesions. Psychiatric: Coperative. Nonsuicidal Musculoskeletal: No joint swelling or deformity. - Labs CBC & Chem 7: 07/20/24 06:40 07/20/24 06:40 Labs: Abnormal Lab Results - Last 24 Hours (Table) 07/19/24 07/19/24 07/19/24 Range/Units 06:25 06:25 11:14 WBC 10.76 H (4.50-10.00) X 10*3/uL RBC 3.65 L (4.10-5.20) X 10*6/uL Hgb 9.2 L (12.0-15.0) g/dL Hct 31.0 L (37.2-46.3) % MCH 25.2 L (27.0-32.0) pg MCHC 29.7 L (32.0-37.0) g/dL RDW 21.1 H (11.5-14.5) % Immature Gran # 0.05 H (0.00-0.04) X 10*3/uL Neutrophils # 8.17 H (1.80-7.70) X 10*3/uL Monocytes # 1.17 H (0.20-1.00) X 10*3/uL Eosinophils # 0 L (0.04-0.35) X 10*3/uL Chloride 113 H (96-109) mmol/L Carbon Dioxide 17.1 L (21.6-31.8) mmol/L BUN 32.3 H (9.0-27.0) mg/dL Creatinine 0.5 L (0.6-1.5) mg/dL BUN/Creatinine Ratio 64.60 H (12.00-20.00) Ratio Glucose 60 L (70-110) mg/dL Calcium 8.2 L (8.7-10.3) mg/dL Urine Opiates Screen Detected H (NotDetected) Ur Oxycodone Screen Detected H (NotDetected) Microbiology - Last 24 Hours (Table) 07/18/24 10:54 Urine Culture - Final Urine,Voided Daria krusei Assessment and Plan Assessment: Altered mental status due to metabolic and toxic encephalopathy UDS positive for oxycodone, methamphetamine send cocaine. Repeat UDS showed oxycodone and opiates. Dehydration volume depletion Possible urinary tract infection. Urine culture showed Daria. Recent infected sacral ulcer unstageable failed outpatient therapy status post surgical debridement and wound cultures growing Proteus and Enterococcus patient is on IV antibiotics in the form of surgery recommend metronidazole via PICC line. Patient was discharged on 07/06/2024 Paroxysmal atrial fibrillation not on anticoagulation. Patient is taking aspirin and Plavix. She has not been taking Eliquis since she coughed up blood in June. Hypertension Hyperlipidemia Normocytic anemia DVT prophylaxis and GI prophylax with heparin subcu and PPI Plan: Patient will be continued on IV hydration with normal saline. Patient was given a dose of Levaquin IV in the ER. Continue with cefepime and metronidazole. Urine culture showed Daria. Patient is also started on voriconazole. ID is on board. Avoid narcotic pain medication use. Continue with home medications including metoprolol and GI and DVT prophylaxis. Follow-up closely. PT OT was consulted. Continue with wound care with the wound VAC. Discussed with the patient and her daughter at bedside in detail. Prognosis is guarded at this time. Time with Patient: Greater than 30
--- NOTE | 2024-07-20 23:51 | P.PN ---
Subjective Progress Note Date: 07/20/24 Patient is a 72-year-old female with a known history of infected unstageable pressure ulcer of the sacrum with recent debridement with cultures growing Proteus and Enterococcus was sent home on antibiotics in the form of cefepime and metronidazole on 07/06/2024. Other medical problems include CAD status post stent placement, paroxysmal atrial fibrillation not on anticoagulation, hypertension, hyperlipidemia, anemia. Patient present back to the hospital due to altered mental status. According to her daughter patient has been very weak and lethargic since yesterday. Patient has been also becoming slow to respond. Patient would also question but in the middle of sentence she fall back asleep. Home visiting nurse also noticed that her Duarte and also feeling of and is concerned about retaining of urine. Urine is also much darker and also concerned about urinary tract infection. Denied any fever or chills. No cough or sputum production. Patient blood pressure 92/69 pulse is 89 respirations 16 and pulse ox 100% on room air. CT head showed no acute intracranial process. Follow-up MRI can be performed as clinically indicated. Chest x-ray showed no acute pulmonary process. EKG showed atrial fibrillation with heart rate 88. Laboratory data showed WBC 8.7 hemoglobin 9.8 and platelets 317, INR 1.5 Sodium 134 potassium 3.5 chloride 110, BUN 35 and creatinine 0.62 and magnesium 1.6 albumin 1.3 and liver enzymes are not elevated troponin x 1 negative Urinalysis showed cloudy with 2+ protein 1+ ketones nitrite positive large leukocyte esterase with elevated RBCs and WBCs. UDS is positive for oxycodone, methamphetamine and cocaine 07/19/2024 Patient is in the MedSurg unit. Awake alert but lethargic and drowsy. Able to follow simple commands. Patient has been afebrile. Patient was not able to tolerate regular diet and was seen by speech pathology. Started on pured diet with one-to-one supervision. Patient has been continued on normal saline at 75 cc/h. Also on antibiotics now, cefepime and Flagyl. Laboratory data showed WBC 10.7 hemoglobin 9.2 and platelets 264 sodium 136 potassium 4.3 chloride 113 bicarb is 17.1 and BUN 32.3 and creatinine 0.5 blood sugar was 60 and calcium 8.2. 07/20/2024 Patient is lethargic and weak. Tries to open her eyes with verbal commands. U jillian to provide any history. Not able to tolerate oral diet. IV fluids changed to D5 normal saline due to blood sugar being 60 this morning.. Patient has been afebrile. Continued on antibiotics cefepime and metronidazole and also on well-controlled. Blood cultures negative so far. Wound care with wound VAC in place. Telemetry showed A-fib with RVR with heart rate around 111. Patient will be transferred to telemetry unit and will be given metoprolol 5 mg IV push. Patient is unable to take her metoprolol p.o. Laboratory data showed WBC 8.6 hemoglobin 8.5 and platelets 266 sodium 139 pota ssium 5.6 with hemolysis, chloride 119 bicarb is 13 BUN 37 creatinine 0.63 and blood sugar 60. Current medications reviewed. Objective - Vital Signs Vital signs: Vital Signs Temp 98.8 F 07/20/24 13:28 Pulse 92 07/20/24 13:28 Resp 15 07/20/24 13:28 BP 99/76 07/20/24 13:28 Pulse Ox 100 07/20/24 13:28 FiO2 Intake & Output 07/19/24 07/20/24 07/20/24 18:59 06:59 18:59 Output Total 190 Balance -190 Weight 74.843 kg Output: Urine 190 Other: Voiding Method Indwelling Catheter Indwelling Catheter Indwelling Catheter - Exam PHYSICAL EXAMINATION: Patient is lying in the bed, no acute distress, awake alert opens eyes with verbal stimuli.. Lethargic and sleepy.. HEENT: Normocephalic. Neck is supple. Pupils reactive. Nostrils clear. Oral cavity is moist. Neck reveals no JVD, carotid bruits, or thyromegaly. CHEST EXAMINATION: Trachea is central. Symmetrical expansion. Lung gandhi clear to auscultation and percussion. CARDIAC: Normal S1, S2 with no gallops. No murmurs ABDOMEN: Soft. Bowel sounds present. Abdominal wound and sacral wounds with wound VAC. No organomegaly. No abdominal bruits. Extremities: reveal no edema. No clubbing or cyanosis Neurologically awake, alert and able to open her eyes with verbal stimuli... No gross focal deficits noted Skin: No rash or skin lesions. Psychiatric: Coperative. Nonsuicidal Musculoskeletal: No joint swelling or deformity. - Labs CBC & Chem 7: 07/20/24 06:40 07/20/24 06:40 Labs: Abnormal Lab Results - Last 24 Hours (Table) 07/20/24 07/20/24 07/20/24 Range/Units 06:40 06:40 10:39 RBC 3.23 L (3.80-5.40) m/uL Hgb 8.5 L (11.4-16.0) gm/dL Hct 27.2 L (34.0-46.0) % RDW 19.8 H (11.5-15.5) % Potassium 5.6 H (3.5-5.1) mmol/L Chloride 119 H (98-107) mmol/L Carbon Dioxide 13 L (22-30) mmol/L BUN 37 H (7-17) mg/dL Glucose 60 L (74-99) mg/dL Calcium 8.1 L (8.4-10.2) mg/dL Urine Appearance Cloudy H (Clear) Urine Protein 2+ H (Negative) Urine Ketones 1+ H (Negative) Urine Blood Large H (Negative) Ur Leukocyte Esterase Large H (Negative) Urine RBC 62 H (0-5) /hpf Urine WBC >182 H (0-5) /hpf Calcium Oxalate Crystal Occasional H (None) /hpf Urine Bacteria Rare H (None) /hpf Hyaline Casts 3 H (0-2) /lpf Urine Mucus Rare H (None) /hpf Urine Yeast (Budding) Many H (None) /hpf Microbiology - Last 24 Hours (Table) 07/18/24 10:54 Urine Culture - Final Urine,Voided Daria krusei Assessment and Plan Assessment: Altered mental status due to metabolic and toxic encephalopathy. Mentation remains the same. UDS positive for oxycodone, methamphetamine send cocaine. Repeat UDS showed oxycodone and opiates. Dehydration volume depletion Possible urinary tract infection. Urine culture showed Daria. Recent infected sacral ulcer unstageable failed outpatient therapy status post surgical debridement and wound cultures growing Proteus and Enterococcus patient is on IV antibiotics in the form of surgery recommend metronidazole via PICC line. Patient was discharged on 07/06/2024 Paroxysmal atrial fibrillation not on anticoagulation. Patient is taking aspirin and Plavix. She has not been taking Eliquis since she coughed up blood in June. Hypertension Hyperlipidemia Normocytic anemia DVT prophylaxis and GI prophylax with heparin subcu and PPI Plan: Patient will be continued on IV hydration with normal saline. Patient was given a dose of Levaquin IV in the ER. Continue with cefepime and metronidazole. Urine culture showed Daria. Patient is also started on voriconazole. ID is on board, considering changing antibiotics from cefepime to ertapenem. Avoid narcotic pain medication use. Continue with home medications including metoprolol and GI and DVT prophylaxis. Follow-up closely. PT OT was consulted. Continue with wound care with the wound VAC. Discussed with the patient and her daughter at bedside in detail. Prognosis is guarded at this time. Time with Patient: Greater than 30
[2024-07-21 00:12] LABS: Glucose,Whole Blood 106 mg/dL (70-110)
[2024-07-21 06:11] LABS: Glucose,Whole Blood 112 mg/dL (70-110)
[2024-07-21 09:05] LABS: African American GFR (CKD) >90 (>60 ml/min/1.73 sqM); Anion Gap 4 mmol/L; Blood Urea Nitrogen 39 mg/dL (7-17); Calcium 8.7 mg/dL (8.4-10.2); Carbon Dioxide 16 mmol/L (22-30); Chloride 119 mmol/L (98-107); Glucose 121 mg/dL (74-99); Non-African American GFR(CKD) 80 (>60 ml/min/1.73 sqM); Potassium 3.6 mmol/L (3.5-5.1); Sodium 139 mmol/L (137-145)
[2024-07-21] MEDS: ERTAPENEM 1 GM in SODIUM CHLORIDE 0.9% 50 ML IVPB SCH (09:20)
[2024-07-21 09:43] LABS: Anisocytosis Slight; Basophils % (A) 0 %; Eosinophils % (A) 0 %; HCT 31.1 % (34.0-46.0); Hypochromasia Marked; Lymphocytes # (A) 1.8 k/uL (1.0-4.8); Lymphocytes % (A) 16 %; MCH 25.3 pg (25.0-35.0); MCHC 28.9 g/dL (31.0-37.0); MCV 87.6 fL (80.0-100.0); Monocytes # (A) 0.6 k/uL (0-1.0); Monocytes % (A) 5 %; Neutrophils # (A) 9.1 k/uL (1.3-7.7); Neutrophils % (A) 78 %; Platelet Count 319 k/uL (150-450); RBC 3.55 m/uL (3.80-5.40); RDW 19.6 % (11.5-15.5); WBC 11.7 k/uL (3.8-10.6)
[2024-07-21 12:05] LABS: Glucose,Whole Blood 126 mg/dL (70-110)
[2024-07-21] MEDS: FUROSEMIDE 10 MG/ML 4 ML VIAL IV SCH (12:24)
[2024-07-21] MEDS: ASPIRIN 300 MG SUPP RECTAL SCH (12:25)
--- NOTE | 2024-07-21 12:49 | P.CRDCN ---
History of Present Illness Consult date: 07/21/24 Reason for Consult (text): Home runs of V. tach, ST elevation, atrial fibrillation History of present illness: This is a 73-year-old female patient of Dr. Lopez with a past medical history significant for diverticulitis, coronary artery disease, ischemic cardiomyopathy, hypertension, hyperlipidemia and atrial fibrillation. Patient had a recent hospitalization in May at which time she presented because of defibrillator fired and on interrogation was found to be having episodes of atrial fibrillation. Patient is not currently on anticoagulation most likely due to anemia and recent hospitalization for melanic stools possibly related to epistaxis. At the time she was found to have a perforated diverticulitis status post exploratory laparotomy and diverting colostomy with small bowel resection on 05/18. We have been asked to evaluate the patient for runs of ventricular tachycardia, ST elevation and atrial fibrillation. Patient presented to the emergency center on 07/18 due to mental status changes. Patient is currently u nresponsive and unable to take any oral medications. Patient is also followed by infectious disease. Atrial fibrillation at 88 bpm, left bundle branch block Chest x-ray reveals no acute pulmonary process. CT of the brain reveals no acute intracranial process. Chronic changes. EKG: Laboratory data: WBC 11.7, hemoglobin 9, platelet count 319. Sodium 139, potassium 3.6, CO2 16, BUN 39 creatinine 0.74. Troponin negative x 1. UA positive for urinary tract infection. Drug screen positive for oxycodone, methamphetamines and cocaine. Current home cardiac medications include aspirin 81 mg at night, atorvastatin 40 mg daily, Plavix 75 mg at night, metoprolol succinate 25 mg twice daily Most recent echocardiogram obtained in April 2024 revealed ejection fraction 40 to 45%, global hypokinesis, trace aortic regurgitation, trace tricuspid regurgitation, mild mitral regurgitation Cardiac catheterization history: August 2023 revealed 90% proximal LAD stenosis with stenting of the proximal LAD. REVIEW OF SYSTEMS: At the time of my exam: Unable to obtain due to patient's mental status. PHYSICAL EXAM: VITAL SIGNS: Reviewed. GENERAL: Well-developed in no acute distress. HEENT: Head is normocephalic. Pupils are equal, round. Sclerae anicteric. Neck supple. No JVD or thyromegaly LUNGS: Respirations even and unlabored. Lungs essentially clear to auscultation bilaterally. HEART: Irregular rate and rhythm. S1 and S2 heard. ABDOMEN: Soft. EXTREMITIES: No clubbing or cyanosis. Peripheral pulses intact. No lower extremity edema NEUROLOGIC: Unresponsive. ASSESSMENT: UTI Metabolic encephalopathy NSVT Paroxysmal atrial fibrillation not currently on anticoagulation due to anemia, history of melenic stools related to epistaxis History of Diverticulitis with pneumoperitoneum status post bowel resection and colostomy Coronary artery disease with previous PCI, most recently to proximal LAD in August 2023 Ischemic cardiomyopathy 30% with recent ICD implantation, improved to 40-45% Hypertension Hyperlipidemia Chronic toxic decubitus ulcer stage IV PLAN: Start patient on IV Lasix 40 mg twice daily Start patient on IV Lopressor 5 mg every 8 hours as needed for heart rate gre ater than 130 bpm Patient to be resumed on her home cardiac medications when she is able to take medications orally Regarding anticoagulation, this can be addressed as an outpatient Further recommendations pending patient course Nurse practitioner note has been reviewed by physician. Signing provider agrees with the documented findings, assessment, and plan of care documented by SMALL ENGINE TECHNICIAN as a scribe. Past Medical History Past Medical History: Atrial Fibrillation, Hyperlipidemia, Hypertension, Myocardial Infarction ([place]) Additional Past Medical History / Comment(s): stage 4 pressure ulcer on buttocks Last Myocardial Infarction Date:: 09/07/2023 History of Any Multi-Drug Resistant Organisms: MRSA Date of last positivie culture/infection: 06/27/24 MDRO Source:: coccyx Past Surgical History: Heart Catheterization With Stent Additional Past Surgical History / Comment(s): Cardiac stents, perferated bowel with ostomy Past Anesthesia/Blood Transfusion Reactions: No Reported Reaction Date of Last Stent Placement:: 09/07/2023 Past Psychological History: No Psychological Hx Reported Smoking Status: Never smoker Past Alcohol Use History: None Reported Past Drug Use History: None Reported Medications and Allergies Home Medications Medication Instructions Recorded Confirmed Type Aspirin EC [Ecotrin Low Dose] 81 mg PO DAILY 12/02/17 07/18/24 History Atorvastatin [Lipitor] 40 mg PO DAILY #90 tab 09/11/23 07/18/24 Rx Nitroglycerin Sl Tabs [Nitrostat] 0.4 mg SL Q5M PRN 05/09/24 07/18/24 History Metoprolol Succinate [Metoprolol 25 mg PO BID 06/27/24 07/18/24 History Succinate ER] Prochlorperazine [Compazine] 10 mg PO Q6H PRN 06/27/24 07/18/24 History oxyCODONE-APAP 5-325MG [Percocet 1 tab PO Q6HR PRN 06/27/24 07/18/24 History 5-325 mg] Cefepime [Maxipime] 2 gm IVPB Q8HR each 07/06/24 07/18/24 Rx Clopidogrel [Plavix] 75 mg PO DAILY #0 07/06/24 07/18/24 Rx DULoxetine HCL [Cymbalta] 60 mg PO DAILY #30 cap 07/06/24 07/18/24 Rx Famotidine [Pepcid] 20 mg PO BID #60 tab 07/06/24 07/18/24 Rx Nystatin 100,000 Unit/ml Susp 500,000 unit PO QID #360 ml 07/06/24 07/18/24 Rx [Mycostatin Oral Susp] metroNIDAZOLE [Flagyl] 500 mg PO TID #126 tab 07/06/24 07/18/24 Rx Ondansetron [Zofran] 4 mg PO Q8H PRN 07/18/24 07/18/24 History oxyCODONE HCL [oxyCODONE HCL (IR)] 10 mg PO Q4H PRN 07/18/24 07/18/24 History Allergies Allergy/AdvReac Type Severity Reaction Status Date / Time Iodinated Contrast Media Allergy Wheezing/hi Verified 07/18/24 10:16 ves iodine Allergy Wheezing/hi Verified 07/18/24 10:16 ves Physical Exam Vitals: Vital Signs Temp Pulse Resp BP Pulse Ox 07/21/24 09:05 97.4 F L 71 22 100/66 96 07/21/24 04:50 77 18 114/68 96 07/21/24 00:10 89 18 109/74 100 07/20/24 20:55 97.7 F 94 18 92/54 100 07/20/24 15:57 97.3 F L 98 20 93/58 96 07/20/24 13:28 98.8 F 92 15 99/76 100 Intake and Output 07/20/24 07/21/24 07/21/24 22:59 06:59 14:59 Intake Total 10 Output Total 300 Balance -300 10 Intake: IV 10 Invasive Line 1 10 Output: Urine 300 Other: Voiding Method Indwelling Catheter Indwelling Catheter Indwelling Catheter Weight 83.6 kg Results 07/21/24 09:27 07/21/24 08:42 CBC 07/21/24 Range/Units 09:27 WBC 11.7 H (3.8-10.6) k/uL RBC 3.55 L (3.80-5.40) m/uL Hgb 9.0 L (11.4-16.0) gm/dL Hct 31.1 L (34.0-46.0) % Plt Count 319 (150-450) k/uL Comprehensive Metabolic Panel 07/21/24 Range/Units 08:42 Sodium 139 (137-145) mmol/L Potassium 3.6 (3.5-5.1) mmol/L Chloride 119 H (98-107) mmol/L Carbon Dioxide 16 L (22-30) mmol/L BUN 39 H (7-17) mg/dL Creatinine 0.74 (0.52-1.04) mg/dL Glucose 121 H (74-99) mg/dL Calcium 8.7 (8.4-10.2) mg/dL Current Medications Generic Name Dose Route Start Last Admin Trade Name Freq PRN Reason Stop Dose Admin Acetaminophen 650 mg 07/18/24 12:42 Acetaminophen Tab 325 Mg Tab PO Q6HR PRN Mild Pain or Fever > 100.5 Aspirin 81 mg 07/19/24 09:00 07/21/24 09:35 Aspirin 81 Mg PO Not Given DAILY [facility] Atorvastatin Calcium 40 mg 07/19/24 09:00 07/21/24 09:35 Atorvastatin 40 Mg Tab PO Not Given DAILY [facility] Clopidogrel Bisulfate 75 mg 07/19/24 09:00 07/21/24 09:35 Clopidogrel 75 Mg Tab PO Not Given DAILY [facility] Duloxetine HCl 60 mg 07/19/24 09:00 07/21/24 09:35 Duloxetine Hcl 60 Mg Capsule.Dr PO Not Given DAILY [facility] Famotidine 20 mg 07/18/24 21:00 07/21/24 09:35 Famotidine 20 Mg Tab PO Not Given BID [facility] Heparin Sodium (Porcine) 5,000 unit 07/19/24 00:00 07/21/24 09:21 Heparin Sodium,Porcine 5,000 Unit/Ml 1 Ml Vial SQ 5,000 unit Q8HR ANABELLA Administration Hydromorphone HCl 0.5 mg 07/18/24 22:34 07/21/24 06:09 Hydromorphone 0.5 Mg/0.5 Ml Syringe IVP 0.5 mg Q4HR PRN Administration Pain Metronidazole 500 mg/ IV 100 mls @ 100 mls/hr 07/18/24 16:00 07/21/24 09:20 Solution IVPB 100 mls/hr Q8HR ANABELLA Administration Protocol Dextrose/Sodium Chloride 1,000 mls @ 75 mls/hr 07/20/24 12:45 07/21/24 06:13 Dextrose 5%-Ns Iv Soln IV 75 mls/hr .[id number] ANABELLA Administration Ertapenem 1 gm/ Sodium 50 mls @ 100 mls/hr 07/21/24 09:00 07/21/24 09:20 Chloride IVPB 100 mls/hr DAILY ANABELLA Administration Protocol Metoprolol Succinate 25 mg 07/18/24 21:00 07/21/24 09:35 Metoprolol Succinate (Er) 25 Mg Tab.Er.24h PO Not Given BID [facility] Naloxone HCl 0.2 mg 07/18/24 12:42 Naloxone 0.4 Mg/Ml 1 Ml Vial IV Q2M PRN Opioid Reversal Nystatin 500,000 unit 07/18/24 18:00 07/21/24 09:36 Nystatin 100,000 Unit/Ml Susp 500,000 Unit/5 Ml Cup PO Not Given QID [facility] Protocol Ondansetron HCl 4 mg 07/18/24 12:21 Ondansetron 4 Mg Tab PO Q8H PRN Nausea Ondansetron HCl 4 mg 07/18/24 12:42 07/19/24 19:55 Ondansetron 4 Mg/2 Ml Vial IVP 4 mg Q8HR PRN Administration Nausea And Vomiting Oxycodone HCl 10 mg 07/18/24 12:21 07/18/24 15:01 Oxycodone Hcl 5 Mg Tab PO 10 mg Q4H PRN Administration Pain Oxycodone/Acetaminophen 1 each 07/18/24 12:21 07/19/24 10:06 Oxycodone-Apap 5-325mg 1 Each Tab PO 1 each Q6HR PRN Administration Pain Pantoprazole Sodium 40 mg 07/19/24 09:00 07/21/24 09:21 Pantoprazole 40 Mg/10 Ml Vial IV 40 mg DAILY ANABELLA Administration Prochlorperazine Maleate 10 mg 07/18/24 12:21 Prochlorperazine 10 Mg Tab PO Q6H PRN Nausea Voriconazole 200 mg 07/20/24 10:15 07/21/24 09:36 Voriconazole 200 Mg Tab PO Not Given Q12HR ANABELLA Protocol Intake and Output 07/20/24 07/21/24 07/21/24 22:59 06:59 14:59 Intake Total 10 Output Total 300 Balance -300 10 Intake: IV 10 Invasive Line 1 10 Output: Urine 300 Other: Voiding Method Indwelling Catheter Indwelling Catheter Indwelling Catheter Weight 83.6 kg 07/21/24 09:27 07/21/24 08:42
--- NOTE | 2024-07-21 15:38 | XR ---
EXAMINATION TYPE: XR abdomen 1V DATE OF EXAM: 07/21/2024 3:01 PM COMPARISON: None. CLINICAL INDICATION: Female, 73 years old with history of r/o ileus, TECHNIQUE: XR abdomen 1V view(s) obtained. FINDINGS: There appears be a small amount colonic bowel gas present. No suspicious air-filled dilated small bow el are evident. No mass effect is evident. Psoas margins are normal. No organomegaly is present. Degenerative changes are within the lumbar spine IMPRESSION: 1. Nonspecific abdomen. [facility], , 07/21/2024 3:35 PM
--- NOTE | 2024-07-21 15:58 | P.PN ---
Subjective Progress Note Date: 07/21/24 Principal diagnosis: Reason for follow-up is infected sacral ulcer and UTI Patient is a 73-year-old female with a past medical history significant for hypertension hyperlipidemia IN atrial fibrillation, perforated diverticulitis with an abscess abdominal wound dehiscence and a sacral pressure ulcer/osteomyelitis has been brought back to the hospital concerning for mental status changes and possible UTI. On today's evaluation that is 07/21/2024, the patient continues to be afebrile, the patient is on room air and breathing comfortably, per the daughter the patient continued to have mental status changes is lethargic and did have gagging episode but no vomiting did have some output in the colostomy. Patient white count is 11.7 creatinine 0.7 4 repeat UA is positive Objective - Vital Signs Vital signs: Vital Signs Temp 97.4 F L 07/21/24 12:20 Pulse 75 07/21/24 12:20 Resp 20 07/21/24 12:20 BP 106/78 07/21/24 12:20 Pulse Ox 100 07/21/24 12:20 FiO2 Intake & Output 07/20/24 07/21/24 07/21/24 18:59 06:59 18:59 Intake Total 10 Output Total 300 Balance -300 10 Weight 74.843 kg 83.6 kg Intake: IV 10 Invasive Line 1 10 Oral 0 Output: Urine 300 Other: Voiding Method Indwelling Catheter Indwelling Catheter Indwelling Catheter - Exam GENERAL DESCRIPTION: An elderly female lying in bed in no distress RESPIRATORY SYSTEM: Unlabored breathing , decreased breath sounds at bases HEART: S1 S2 regular rate and rhythm , ABDOMEN: Soft , no tenderness EXTREMITIES: Swelling to bilateral lower extremity no redness - Labs CBC & Chem 7: 07/21/24 09:27 07/21/24 08:42 Labs: Abnormal Lab Results - Last 24 Hours (Table) 07/21/24 07/21/24 07/21/24 Range/Units 06:09 08:42 09:27 WBC 11.7 H (3.8-10.6) k/uL RBC 3.55 L (3.80-5.40) m/uL Hgb 9.0 L (11.4-16.0) gm/dL Hct 31.1 L (34.0-46.0) % MCHC 28.9 L (31.0-37.0) g/dL RDW 19.6 H (11.5-15.5) % Neutrophils # 9.1 H (1.3-7.7) k/uL Chloride 119 H (98-107) mmol/L Carbon Dioxide 16 L (22-30) mmol/L BUN 39 H (7-17) mg/dL Glucose 121 H (74-99) mg/dL POC Glucose (mg/dL) 112 H (70-110) mg/dL 07/21/24 Range/Units 11:54 WBC (3.8-10.6) k/uL RBC (3.80-5.40) m/uL Hgb (11.4-16.0) gm/dL Hct (34.0-46.0) % MCHC (31.0-37.0) g/dL RDW (11.5-15.5) % Neutrophils # (1.3-7.7) k/uL Chloride (98-107) mmol/L Carbon Dioxide (22-30) mmol/L BUN (7-17) mg/dL Glucose (74-99) mg/dL POC Glucose (mg/dL) 126 H (70-110) mg/dL Microbiology - Last 24 Hours (Table) 07/19/24 14:26 Blood Culture - Preliminary Blood Assessment and Plan (1) UTI (urinary tract infection) Current Visit: Yes Status: Acute Code(s): N39.0 - URINARY TRACT INFECTION, SITE NOT SPECIFIED SNOMED Code(s): 47442094 (2) Sacral osteomyelitis Current Visit: No Status: Acute Code(s): M46.28 - OSTEOMYELITIS OF VERTEBRA, SACRAL AND SACROCOCCYGEAL REGION SNOMED Code(s): 671695941 (3) Sacral ulcer Current Visit: No Status: Acute Code(s): L98.429 - NON-PRESSURE CHRONIC ULCER OF BACK WITH UNSPECIFIED SEVERITY SNOMED Code(s): 79820471 Plan: 1patient presented to hospital with weakness mental status change which is likely multifactorial there was concern for possible catheter assisted UTI however the patient urine drug screen is also positive for oxycodone methamphetamines and cocaine may be contributing to some of her weakness and mental status changes 2-patient also have a infected sacral pressure ulcer with a recent Proteus bacteremia. 3-Duarte catheter has been changed and cultures are currently growing Daria krusei with a question of possible Duarte colonization as the Duarte has already been changed repeat UA is positive patient was started on voriconazole as of 07/20/2024 4-patient antibiotic has been switched over to Invanz concerning for possible cefepime related encephalopathy and will monitor clinical course closely patient daughter also complaining of some gagging NG and surgical consultation has been discussed with the admitting team Dictation was produced using [facility] dictation software. please excuse any grammatical, word or spelling errors. Time with Patient: Less than 30
[2024-07-21 17:28] LABS: Glucose,Whole Blood 127 mg/dL (70-110)
--- NOTE | 2024-07-21 19:14 | CT ---
EXAMINATION TYPE: CT brain wo con DATE OF EXAM: 07/21/2024 6:49 PM COMPARISON: 07/18/2024. CLINICAL INDICATION: Female, 73 years old with history of ams TECHNIQUE: Brain: Axial CT images of the brain were obtained with coronal and sagittal reformats created and rev iewed. Contrast used: None. Oral contrast used: None. CT DLP: 1125.4 mGycm, Automated exposure control for dose reduction was used. FINDINGS Brain: Extra-axial spaces: No abnormal extra-axial fluid collections. Ventricular system: Within normal limits Cerebral parenchyma: No acute intraparenchymal hemorrhage or mass effect. The garner-white junction is well differentiated. Scattered hypoattenuating areas are seen within the white matter. Cerebellum: Unremarkable. Mass effect: No evidence of midline shift. Intracranial vasculature: Atherosclerotic calcifications of the intracranial vessels. Soft tissues: Normal. Calvarium/osseous structures: No depressed skull fracture. Paranasal sinuses and mastoid air cells: Mild scattered paranasal sinus disease. Visualized orbits: Orbital contents are intact. IMPRESSION: 1. No acute intracranial process. 2. Nonspecific white matter changes, likely secondary to chronic small vessel ischemic disease. [facility], , 07/21/2024 7:12 PM
[2024-07-21] MEDS: METOPROLOL TARTRATE 5 MG/5 ML VIAL IVP PRN (21:21)
[2024-07-21] MEDS ORDERED: Potassium Replacement Protocol 1 EACH MISC MISCELLANE PRN (21:22)
[2024-07-22 00:11] LABS: Glucose,Whole Blood 162 mg/dL (70-110)
[2024-07-22 06:08] LABS: Glucose,Whole Blood 157 mg/dL (70-110)
[2024-07-22 08:14] LABS: Anisocytosis Slight; Basophils % (A) 0 %; Eosinophils % (A) 0 %; HCT 26.8 % (34.0-46.0); Hypochromasia Marked; Lymphocytes # (A) 1.3 k/uL (1.0-4.8); Lymphocytes % (A) 12 %; MCH 25.9 pg (25.0-35.0); MCHC 28.1 g/dL (31.0-37.0); Mean Platelet Volume 7.6; Monocytes # (A) 0.7 k/uL (0-1.0); Monocytes % (A) 6 %; Neutrophils # (A) 8.6 k/uL (1.3-7.7); Neutrophils % (A) 79 %; Platelet Count 208 k/uL (150-450); RBC 2.92 m/uL (3.80-5.40); RDW 19.5 % (11.5-15.5); WBC 10.9 k/uL (3.8-10.6)
[2024-07-22 08:15] LABS: HGB 7.5 gm/dL (11.4-16.0)
[2024-07-22] MEDS: ALBUMIN HUMAN 25% 50 ML in EMPTY BAG 1 BAG IVPB ONE (11:33)
--- NOTE | 2024-07-22 12:17 | P.PN ---
Subjective Progress Note Date: 07/22/24 Reason for Consult (text): Home runs of V. tach, ST elevation, atrial fibrillation History of present illness: This is a 73-year-old female patient of Dr. Lopez with a past medical history significant for diverticulitis, coronary artery disease, ischemic cardiomyopathy, hypertension, hyperlipidemia and atrial fibrillation. Patient had a recent hospitalization in May at which time she presented because of defibrillator fired and on interrogation was found to be having episodes of atrial fibrillation. Patient is not currently on anticoagulation most likely due to anemia and recent hospitalization for melanic stools possibly related to epistaxis. At the time she was found to have a perforated diverticulitis status post exploratory laparotomy and diverting colostomy with small bowel resection on 05/18. We have been asked to evaluate the patient for runs of ventricular tachycardia, ST elevation and atrial fibrillation. Patient presented to the emergency center on 07/18 due to mental status changes. Patient is currently unresponsive and unable to take any oral medications. Patient is also followed by infectious disease. Atrial fibrillation at 88 bpm, left bundle branch block Chest x-ray reveals no acute pulmonary process. CT of the brain reveals no acute intracranial process. Chronic changes. EKG: Laboratory data: WBC 11.7, hemoglobin 9, platelet count 319. Sodium 139, potassium 3.6, CO2 16, BUN 39 creatinine 0.74. Troponin negative x 1. UA positive for urinary tract infection. Drug screen positive for oxycodone, methamphetamines and cocaine. Current home cardiac medications include aspirin 81 mg at night, atorvastatin 40 mg daily, Plavix 75 mg at night, metoprolol succinate 25 mg twice daily Most recent echocardiogram obtained in April 2024 revealed ejection fraction 40 to 45%, global hypokinesis, trace aortic regurgitation, trace tricuspid regurgitation, mild mitral regurgitation Cardiac catheterization history: August 2023 revealed 90% proximal LAD stenosis with stenting of the proximal LAD. 07/22 The patient is seen today for follow-up. Patient is not having very much urine output. Blood pressure 119/69, heart rate 79, pulse ox 98% on room air. Patient is still not able to wake up enough to eat and not taking any of her oral medications. We did put her on IV Lasix, IV Lopressor and aspirin suppository. Apparently the patient's daughter has contacted hospice but no definite transition has been determined. PHYSICAL EXAM: VITAL SIGNS: Reviewed. GENERAL: Well-developed in no acute distress. HEENT: Head is normocephalic. Pupils are equal, round. Sclerae anicteric. Neck supple. No JVD or thyromegaly LUNGS: Respirations even and unlabored. Lungs essentially clear to auscultation bilaterally. HEART: Irregular rate and rhythm. S1 and S2 heard. ABDOMEN: Soft. EXTREMITIES: No clubbing or cyanosis. Peripheral pulses intact. Bilateral upper lower extremity edema NEUROLOGIC: Unresponsive. ASSESSMENT: UTI Metabolic encephalopathy NSVT Paroxysmal atrial fibrillation not currently on anticoagulation due to anemia, history of melenic stools related to epistaxis History of Diverticulitis with pneumoperitoneum status post bowel resection and colostomy Coronary artery disease with previous PCI, most recently to proximal LAD in August 2023 Ischemic cardiomyopathy 30% with recent ICD implantation, improved to 40-45% Hypertension Hyperlipidemia Chronic toxic decubitus ulcer stage IV Third spacing secondary to hypoalbuminemia PLAN: Continue aspirin suppository daily Continue patient on IV Lasix 40 mg twice daily Continue patient on IV Lopressor 5 mg every 8 hours as needed for heart rate greater than 130 bpm Patient to be resumed on her home cardiac medications when she is able to take medications orally Regarding anticoagulation, this can be addressed as an outpatient Order 1 dose of albumin IV Further recommendations pending patient course Nurse practitioner note has been reviewed by physician. Signing provider agrees with the documented findings, assessment, and plan of care documented by SURGICAL GARMENT ASSEMBLY SUPERVISOR as a scribe. Objective - Vital Signs Vital signs: Vital Signs Temp 96.6 F L 07/22/24 07:42 Pulse 75 07/22/24 07:42 Resp 20 07/22/24 07:42 BP 119/69 07/22/24 07:42 Pulse Ox 99 07/22/24 07:42 FiO2 Intake & Output 07/21/24 07/22/24 07/22/24 18:59 06:59 18:59 Intake Total 10 20 10 Output Total 400 100 300 Balance -390 -80 -290 Weight 83.5 kg Intake: IV 10 20 10 Invasive Line 1 10 20 10 Oral 0 Output: Urine 400 100 300 Other: Voiding Method Indwelling Catheter Indwelling Catheter Indwelling Catheter - Labs CBC & Chem 7: 07/22/24 07:33 07/21/24 08:42 Labs: Abnormal Lab Results - Last 24 Hours (Table) 07/21/24 07/21/24 07/22/24 Range/Units 11:54 17:25 00:10 WBC (3.8-10.6) k/uL RBC (3.80-5.40) m/uL Hgb (11.4-16.0) gm/dL Hct (34.0-46.0) % MCHC (31.0-37.0) g/dL RDW (11.5-15.5) % Neutrophils # (1.3-7.7) k/uL POC Glucose (mg/dL) 126 H 127 H 162 H (70-110) mg/dL 07/22/24 07/22/24 Range/Units 06:06 07:33 WBC 10.9 H (3.8-10.6) k/uL RBC 2.92 L (3.80-5.40) m/uL Hgb 7.5 L D (11.4-16.0) gm/dL Hct 26.8 L (34.0-46.0) % MCHC 28.1 L (31.0-37.0) g/dL RDW 19.5 H (11.5-15.5) % Neutrophils # 8.6 H (1.3-7.7) k/uL POC Glucose (mg/dL) 157 H (70-110) mg/dL Microbiology - Last 24 Hours (Table) 07/20/24 10:39 Urine Culture - Preliminary Urine,Voided 07/19/24 14:26 Blood Culture - Preliminary Blood
[2024-07-22 12:19] LABS: Glucose,Whole Blood 132 mg/dL (70-110)
--- NOTE | 2024-07-22 12:50 | P.GSCN ---
History of Present Illness Consult date: 07/22/24 History of present illness: CHIEF COMPLAINT: Altered mental status HISTORY OF PRESENT ILLNESS: This is a 73-year-old female who presented to the hospital with altered mental status, weakness and lethargic. She is being treated for UTI and urine drug screen was positive for methamphetamine, cocaine and oxycodone. Patient is still very lethargic. Surgical service has been consulted for possible ileus. Abdominal x-ray completed showing nonspecific abdomen. Patient does have stool in the colostomy bag. Per nursing staff unsure if that is old stool. Patient is lethargic and unable to give any history. Patient does have a known history of a sacral decubitus ulcer which had debridement in June 29, 2024. Also history of perforated diverticulitis in May requiring a diverting colostomy. Per nursing staff patient has a wound VAC at the midline incision and on the sacrum. Per nursing staff oral intake is also been decreased. She is currently n.p.o. due to her being so lethargic. PAST MEDICAL HISTORY: See below PAST SURGICAL HISTORY: See below MEDICATIONS: See below ALLERGIES: See below SOCIAL HISTORY: No illicit drug use. REVIEW OF SYSTEMS: CONSTITUTIONAL: Denies fever or chills. HEENT: Denies blurred vision, vision changes, or eye pain. Denies hemoptysis CARDIOVASCULAR: Denies chest pain or pressure. RESPIRATORY: No shortness of breath. GASTROINTESTINAL: See HPI for pertinent findings HEMATOLOGIC: Denies bleeding disorders. GENITOURINARY: Denies any blood in urine or increased urinary frequency. SKIN: Denies pruitis. Denies rash. PHYSICAL EXAM: VITAL SIGNS: Reviewed GENERAL: Well-developed in no acute distress. HEENT: No sclera icterus. Extraocular movements grossly intact. Moist buccal mucosa. Head is atraumatic, normocephalic. No nasal drainage. ABDOMEN: Soft. Nondistended. Nontender. Colostomy with thick brown stool present. Midline incision with wound VAC in place. NEUROLOGIC: Alert and oriented. Cranial nerves II through XII grossly intact. LABORATORY DATA: WBC down from 11.7-10.9 Hgb 7.5 platelets 208 Sodium 139 potassium 3.6 creatinine 0.74 IMAGING: Abdominal x-ray nonspecific abdomen ASSESSMENT: 1. Possible ileus with decreased stool output 2. Metabolic encephalopathy PLAN: -Will have nursing staff change colostomy appliance to be able to assess if there is new stool output -Continue to monitor -Continue supportive care Physician Digital Marketing Officer note has been reviewed by physician. Signing provider agrees with the documented findings, assessment, and plan of care. Past Medical History Past Medical History: Atrial Fibrillation, Hyperlipidemia, Hypertension, Myocardial Infarction (PR) Additional Past Medical History / Comment(s): stage 4 pressure ulcer on buttocks Last Myocardial Infarction Date:: 09/07/2023 History of Any Multi-Drug Resistant Organisms: MRSA Year Discovered:: 06/27/24 MDRO Source:: coccyx Past Surgical History: Heart Catheterization With Stent Additional Past Surgical History / Comment(s): Cardiac stents, perferated bowel with ostomy Past Anesthesia/Blood Transfusion Reactions: No Reported Reaction Date of Last Stent Placement:: 09/07/2023 Past Psychological History: No Psychological Hx Reported Smoking Status: Never smoker Past Alcohol Use History: None Reported Past Drug Use History: None Reported Medications and Allergies Home Medications Medication Instructions Recorded Confirmed Type Aspirin EC [Ecotrin Low Dose] 81 mg PO DAILY 12/02/17 07/18/24 History Atorvastatin [Lipitor] 40 mg PO DAILY #90 tab 09/11/23 07/18/24 Rx Nitroglycerin Sl Tabs [Nitrostat] 0.4 mg SL Q5M PRN 05/09/24 07/18/24 History Metoprolol Succinate [Metoprolol 25 mg PO BID 06/27/24 07/18/24 History Succinate ER] Prochlorperazine [Compazine] 10 mg PO Q6H PRN 06/27/24 07/18/24 History oxyCODONE-APAP 5-325MG [Percocet 1 tab PO Q6HR PRN 06/27/24 07/18/24 History 5-325 mg] Cefepime [Maxipime] 2 gm IVPB Q8HR each 07/06/24 07/18/24 Rx Clopidogrel [Plavix] 75 mg PO DAILY #0 07/06/24 07/18/24 Rx DULoxetine HCL [Cymbalta] 60 mg PO DAILY #30 cap 07/06/24 07/18/24 Rx Famotidine [Pepcid] 20 mg PO BID #60 tab 07/06/24 07/18/24 Rx Nystatin 100,000 Unit/ml Susp 500,000 unit PO QID #360 ml 07/06/24 07/18/24 Rx [Mycostatin Oral Susp] metroNIDAZOLE [Flagyl] 500 mg PO TID #126 tab 07/06/24 07/18/24 Rx Ondansetron [Zofran] 4 mg PO Q8H PRN 07/18/24 07/18/24 History oxyCODONE HCL [oxyCODONE HCL (IR)] 10 mg PO Q4H PRN 07/18/24 07/18/24 History Allergies Allergy/AdvReac Type Severity Reaction Status Date / Time Iodinated Contrast Media Allergy Wheezing/hi Verified 07/18/24 10:16 ves iodine Allergy Wheezing/hi Verified 07/18/24 10:16 ves Surgical - Exam Vital Signs Temp Pulse Resp BP Pulse Ox 98.7 F 89 16 92/69 100 07/18/24 10:13 07/18/24 10:13 07/18/24 10:13 07/18/24 10:13 07/18/24 10:13 Results - Labs 07/22/24 07:33 07/21/24 08:42 Abnormal Lab Results - Last 24 Hours (Table) 07/21/24 07/22/24 07/22/24 Range/Units 17:25 00:10 06:06 WBC (3.8-10.6) k/uL RBC (3.80-5.40) m/uL Hgb (11.4-16.0) gm/dL Hct (34.0-46.0) % MCHC (31.0-37.0) g/dL RDW (11.5-15.5) % Neutrophils # (1.3-7.7) k/uL POC Glucose (mg/dL) 127 H 162 H 157 H (70-110) mg/dL 07/22/24 07/22/24 Range/Units 07:33 12:17 WBC 10.9 H (3.8-10.6) k/uL RBC 2.92 L (3.80-5.40) m/uL Hgb 7.5 L D (11.4-16.0) gm/dL Hct 26.8 L (34.0-46.0) % MCHC 28.1 L (31.0-37.0) g/dL RDW 19.5 H (11.5-15.5) % Neutrophils # 8.6 H (1.3-7.7) k/uL POC Glucose (mg/dL) 132 H (70-110) mg/dL Microbiology - Last 24 Hours (Table) 07/20/24 10:39 Urine Culture - Preliminary Urine,Voided 07/19/24 14:26 Blood Culture - Preliminary Blood
--- NOTE | 2024-07-22 13:07 | P.PN ---
Subjective Progress Note Date: 07/22/24 Principal diagnosis: Reason for follow-up is infected sacral ulcer and UTI Patient is a 73-year-old female with a past medical history significant for hypertension hyperlipidemia [place] atrial fibrillation, perforated diverticulitis with an abscess abdominal wound dehiscence and a sacral pressure ulcer/osteomyelitis has been brought back to the hospital concerning for mental status changes and possible UTI. On today's evaluation that is 07/22/2024, Patient is afebrile patient is currently on room air and breathing comfortably no distress patient remains to be less responsive and moaning no vomiting or any changes reported by the daughter at the bedside. Patient white count is 10.9 repeat urine cultures currently pending Objective - Vital Signs Vital signs: Vital Signs Temp 96.6 F L 07/22/24 07:42 Pulse 75 07/22/24 07:42 Resp 20 07/22/24 07:42 BP 119/69 07/22/24 07:42 Pulse Ox 99 07/22/24 07:42 FiO2 Intake & Output 07/21/24 07/22/24 07/22/24 18:59 06:59 18:59 Intake Total 10 20 10 Output Total 400 100 300 Balance -390 -80 -290 Weight 83.5 kg Intake: IV 10 20 10 Invasive Line 1 10 20 10 Oral 0 Output: Urine 400 100 300 Other: Voiding Method Indwelling Catheter Indwelling Catheter Indwelling Catheter - Exam GENERAL DESCRIPTION: An elderly female lying in bed in no distress RESPIRATORY SYSTEM: Unlabored breathing , decreased breath sounds at bases HEART: S1 S2 regular rate and rhythm , ABDOMEN: Soft , no tenderness EXTREMITIES: Swelling to bilateral lower extremity no redness - Labs CBC & Chem 7: 07/22/24 07:33 07/21/24 08:42 Labs: Abnormal Lab Results - Last 24 Hours (Table) 07/21/24 07/21/24 07/22/24 Range/Units 11:54 17:25 00:10 WBC (3.8-10.6) k/uL RBC (3.80-5.40) m/uL Hgb (11.4-16.0) gm/dL Hct (34.0-46.0) % MCHC (31.0-37.0) g/dL RDW (11.5-15.5) % Neutrophils # (1.3-7.7) k/uL POC Glucose (mg/dL) 126 H 127 H 162 H (70-110) mg/dL 07/22/24 07/22/24 Range/Units 06:06 07:33 WBC 10.9 H (3.8-10.6) k/uL RBC 2.92 L (3.80-5.40) m/uL Hgb 7.5 L D (11.4-16.0) gm/dL Hct 26.8 L (34.0-46.0) % MCHC 28.1 L (31.0-37.0) g/dL RDW 19.5 H (11.5-15.5) % Neutrophils # 8.6 H (1.3-7.7) k/uL POC Glucose (mg/dL) 157 H (70-110) mg/dL Microbiology - Last 24 Hours (Table) 07/20/24 10:39 Urine Culture - Preliminary Urine,Voided 07/19/24 14:26 Blood Culture - Preliminary Blood Assessment and Plan (1) UTI (urinary tract infection) Current Visit: Yes Status: Acute Code(s): N39.0 - URINARY TRACT INFECTION, SITE NOT SPECIFIED SNOMED Code(s): 53298277 (2) Sacral osteomyelitis Current Visit: No Status: Acute Code(s): M46.28 - OSTEOMYELITIS OF VERTEBRA, SACRAL AND SACROCOCCYGEAL REGION SNOMED Code(s): 479651618 (3) Sacral ulcer Current Visit: No Status: Acute Code(s): L98.429 - NON-PRESSURE CHRONIC ULCER OF BACK WITH UNSPECIFIED SEVERITY SNOMED Code(s): 13964190 Plan: 1patient presented to hospital with weakness mental status change which is likely multifactorial there was concern for possible catheter assisted UTI ho ver the patient urine drug screen is also positive for oxycodone methamphetamines and cocaine may be contributing to some of her weakness and mental status changes 2-patient also have a infected sacral pressure ulcer with a recent Proteus bacteremia. 3-Duarte catheter has been changed and cultures are currently growing Daria krusei with a question of possible Duarte colonization as the Duarte has already been changed repeat UA is positive patient was started on voriconazole as of 07/20/2024 4-patient antibiotic has been switched over to Invanz concerning for possible cefepime related encephalopathy, however no improvement in his encephalopathy neurology is following the patient closely Son and daughter at the bedside multiple questions were answered Dictation was produced using HackerRankation software. please excuse any grammatical, word or spelling errors. Time with Patient: Less than 30
[2024-07-22] MEDS: levETIRAcetam IV 500 MG/5 ML VIAL IVP SCH (13:16)
[2024-07-22 14:10] LABS: African American GFR (CKD) 83 (>60 ml/min/1.73 sqM); Anion Gap 8 mmol/L; Blood Urea Nitrogen 38 mg/dL (7-17); Calcium 8.6 mg/dL (8.4-10.2); Carbon Dioxide 13 mmol/L (22-30); Chloride 121 mmol/L (98-107); Glucose 117 mg/dL (74-99); Non-African American GFR(CKD) 72 (>60 ml/min/1.73 sqM); Potassium 2.8 mmol/L (3.5-5.1); Sodium 142 mmol/L (137-145)
--- NOTE | 2024-07-22 15:28 | XR ---
EXAMINATION TYPE: XR chest 1V portable DATE OF EXAM: 07/22/2024 3:21 PM COMPARISON: 07/21/2024 CLINICAL INDICATION: Female, 73 years old with history of confirm NG tube placement, TECHNIQUE: XR chest 1V portable view(s) obtained. FINDINGS: Air is within the stomach. Nasogastric tube transverses the thorax tip in the proximal left upper maude drant of the abdomen. IMPRESSION: 1. Nasogastric tube with tip in the proximal left upper quadrant abdomen [facility], , 07/22/2024 3:26 PM
[2024-07-22] MEDS: chlorproMAZINE 25 MG/ML 2 ML AMP IM ONE (16:18)
--- NOTE | 2024-07-22 17:31 | P.PN ---
Subjective Progress Note Date: 07/21/24 Patient is a 72-year-old female with a known history of infected unstageable pressure ulcer of the sacrum with recent debridement with cultures growing Proteus and Enterococcus was sent home on antibiotics in the form of cefepime and metronidazole on 07/06/2024. Other medical problems include CAD status post stent placement, paroxysmal atrial fibrillation not on anticoagulation, hypertension, hyperlipidemia, anemia. Patient present back to the hospital due to altered mental status. According to her daughter patient has been very weak and lethargic since yesterday. Patient has been also becoming slow to respond. Patient would also question but in the middle of sentence she fall back asleep. Home visiting nurse also noticed that her Duarte and also feeling of and is concerned about retaining of urine. Urine is also much darker and also concerned about urinary tract infection. Denied any fever or chills. No cough or sputum production. Patient blood pressure 92/69 pulse is 89 respirations 16 and pulse ox 100% on room air. CT head showed no acute intracranial process. Follow-up MRI can be performed as clinically indicated. Chest x-ray showed no acute pulmonary process. EKG showed atrial fibrillation with heart rate 88. Laboratory data showed WBC 8.7 hemoglobin 9.8 and platelets 317, INR 1.5 Sodium 134 potassium 3.5 chloride 110, BUN 35 and creatinine 0.62 and magnesium 1.6 albumin 1.3 and liver enzymes are not elevated troponin x 1 negative Urinalysis showed cloudy with 2+ protein 1+ ketones nitrite positive large leukocyte esterase with elevated RBCs and WBCs. UDS is positive for oxycodone, methamphetamine and cocaine 07/19/2024 Patient is in the MedSurg unit. Awake alert but lethargic and drowsy. Able to follow simple commands. Patient has been afebrile. Patient was not able to tolerate regular diet and was seen by speech pathology. Started on pured diet with one-to-one supervision. Patient has been continued on normal saline at 75 cc/h. Also on antibiotics now, cefepime and Flagyl. Laboratory data showed WBC 10.7 hemoglobin 9.2 and platelets 264 sodium 136 potassium 4.3 chloride 113 bicarb is 17.1 and BUN 32.3 and creatinine 0.5 blood sugar was 60 and calcium 8.2. 07/20/2024 Patient is lethargic and weak. Tries to open her eyes with verbal commands. U jillian to provide any history. Not able to tolerate oral diet. IV fluids changed to D5 normal saline due to blood sugar being 60 this morning.. Patient has been afebrile. Continued on antibiotics cefepime and metronidazole and also on well-controlled. Blood cultures negative so far. Wound care with wound VAC in place. Telemetry showed A-fib with RVR with heart rate around 111. Patient will be transferred to telemetry unit and will be given metoprolol 5 mg IV push. Patient is unable to take her metoprolol p.o. Laboratory data showed WBC 8.6 hemoglobin 8.5 and platelets 266 sodium 139 pota ssium 5.6 with hemolysis, chloride 119 bicarb is 13 BUN 37 creatinine 0.63 and blood sugar 60. 07/21/2024 Patient is lethargic and moaning. Unable to open her eyes. Not able to tolerate oral diet. Currently being continued on IV hydration with D5 normal saline. IV antibiotics in the form of ertapenem. Continued on wound care with wound VAC. Currently on room air. Laboratory showed WBC 11.7 hemoglobin 9.0 and platelets 319 sodium 139 potassium 3.6 chloride 109 bicarb 16 BUN 39 and creatinine 0.74 and blood sugar 121. Ammonia less than 9. Patient was seen by cardiology. Neurology and general surgery was consulted for further evaluation. Current medications reviewed. Objective - Vital Signs Vital signs: Vital Signs Temp 97.4 F L 07/21/24 09:05 Pulse 71 07/21/24 09:05 Resp 22 07/21/24 09:05 BP 100/66 07/21/24 09:05 Pulse Ox 96 07/21/24 09:05 FiO2 Intake & Output 07/20/24 07/21/24 07/21/24 18:59 06:59 18:59 Intake Total 10 Output Total 300 Balance -300 10 Weight 74.843 kg 83.6 kg Intake: IV 10 Invasive Line 1 10 Output: Urine 300 Other: Voiding Method Indwelling Catheter Indwelling Catheter Indwelling Catheter - Exam PHYSICAL EXAMINATION: Patient is lying in the bed, patient is unable to open her eyes with verbal stimuli. Morning. HEENT: Normocephalic. Neck is supple. Pupils reactive. Nostrils clear. Oral cavity is moist. Neck reveals no JVD, carotid bruits, or thyromegaly. CHEST EXAMINATION: Trachea is central. Symmetrical expansion. Lung gandhi clear to auscultation and percussion. CARDIAC: Normal S1, S2 with no gallops. No murmurs ABDOMEN: Soft. Bowel sounds present. Abdominal wound and sacral wounds with wound VAC. No organomegaly. No abdominal bruits. Extremities: reveal no edema. Puffiness of the bilateral upper extremities. No clubbing or cyanosis Neurologically patient is unable to open her eyes with verbal stimuli... No gross focal deficits noted Skin: No rash or skin lesions. Psychiatric: Coperative. Could not be assessed completely Musculoskeletal: No joint swelling or deformity. - Labs CBC & Chem 7: 07/22/24 07:33 07/22/24 13:30 Labs: Abnormal Lab Results - Last 24 Hours (Table) 07/20/24 07/21/24 07/21/24 Range/Units 10:39 06:09 08:42 WBC (3.8-10.6) k/uL RBC (3.80-5.40) m/uL Hgb (11.4-16.0) gm/dL Hct (34.0-46.0) % MCHC (31.0-37.0) g/dL RDW (11.5-15.5) % Neutrophils # (1.3-7.7) k/uL Chloride 119 H (98-107) mmol/L Carbon Dioxide 16 L (22-30) mmol/L BUN 39 H (7-17) mg/dL Glucose 121 H (74-99) mg/dL POC Glucose (mg/dL) 112 H (70-110) mg/dL Urine Appearance Cloudy H (Clear) Urine Protein 2+ H (Negative) Urine Ketones 1+ H (Negative) Urine Blood Large H (Negative) Ur Leukocyte Esterase Large H (Negative) Urine RBC 62 H (0-5) /hpf Urine WBC >182 H (0-5) /hpf Calcium Oxalate Crystal Occasional H (None) /hpf Urine Bacteria Rare H (None) /hpf Hyaline Casts 3 H (0-2) /lpf Urine Mucus Rare H (None) /hpf Urine Yeast (Budding) Many H (None) /hpf 07/21/24 Range/Units 09:27 WBC 11.7 H (3.8-10.6) k/uL RBC 3.55 L (3.80-5.40) m/uL Hgb 9.0 L (11.4-16.0) gm/dL Hct 31.1 L (34.0-46.0) % MCHC 28.9 L (31.0-37.0) g/dL RDW 19.6 H (11.5-15.5) % Neutrophils # 9.1 H (1.3-7.7) k/uL Chloride (98-107) mmol/L Carbon Dioxide (22-30) mmol/L BUN (7-17) mg/dL Glucose (74-99) mg/dL POC Glucose (mg/dL) (70-110) mg/dL Urine Appearance (Clear) Urine Protein (Negative) Urine Ketones (Negative) Urine Blood (Negative) Ur Leukocyte Esterase (Negative) Urine RBC (0-5) /hpf Urine WBC (0-5) /hpf Calcium Oxalate Crystal (None) /hpf Urine Bacteria (None) /hpf Hyaline Casts (0-2) /lpf Urine Mucus (None) /hpf Urine Yeast (Budding) (None) /hpf Microbiology - Last 24 Hours (Table) 07/19/24 14:26 Blood Culture - Preliminary Blood Assessment and Plan Assessment: Altered mental status due to metabolic and toxic encephalopathy. Mentation did not show much improvement. UDS positive for oxycodone, methamphetamine send cocaine. Repeat UDS showed oxycodone and opiates. Dehydration volume depletion Possible urinary tract infection. Urine culture showed Daria. Recent infected sacral ulcer unstageable failed outpatient therapy status post surgical debridement and wound cultures growing Proteus and Enterococcus patient is on IV antibiotics in the form of surgery recommend metronidazole via PICC line. Patient was discharged on 07/06/2024 Paroxysmal atrial fibrillation not on anticoagulation. Patient is taking aspirin and Plavix. She has not been taking Eliquis since she coughed up blood in June. Hypertension Hyperlipidemia Normocytic anemia DVT prophylaxis and GI prophylax with heparin subcu and PPI Plan: Patient will be continued on IV hydration with D5 normal saline. Patient was given a dose of Levaquin IV in the ER. Continue with cefepime and metronidazole. Urine culture showed Daria. Patient is also started on voriconazole. ID is on board change antibiotics to above ertapenem. Avoid narcotic pain medication use. Continue with home medications including metoprolol and GI and DVT prophylaxis. Follow-up closely. PT OT was consulted but unable to participate.. With pathology has seen the patient and recommended honey thickened liquids which she is not able to take today. Continue with wound care with the wound VAC. Discussed with the patient and her daughter at bedside in detail. Prognosis is guarded at this time due to multiple medical problems and comorbid conditions. Cardiology-the patient and recommended IV Lasix Neurology and general surgery was consulted. Time with Patient: Greater than 30
--- NOTE | 2024-07-22 17:36 | P.PN ---
Subjective Progress Note Date: 07/22/24 Patient is a 72-year-old female with a known history of infected unstageable pressure ulcer of the sacrum with recent debridement with cultures growing Proteus and Enterococcus was sent home on antibiotics in the form of cefepime and metronidazole on 07/06/2024. Other medical problems include CAD status post stent placement, paroxysmal atrial fibrillation not on anticoagulation, hypertension, hyperlipidemia, anemia. Patient present back to the hospital due to altered mental status. According to her daughter patient has been very weak and lethargic since yesterday. Patient has been also becoming slow to respond. Patient would also question but in the middle of sentence she fall back asleep. Home visiting nurse also noticed that her Duarte and also feeling of and is concerned about retaining of urine. Urine is also much darker and also concerned about urinary tract infection. Denied any fever or chills. No cough or sputum production. Patient blood pressure 92/69 pulse is 89 respirations 16 and pulse ox 100% on room air. CT head showed no acute intracranial process. Follow-up MRI can be performed as clinically indicated. Chest x-ray showed no acute pulmonary process. EKG showed atrial fibrillation with heart rate 88. Laboratory data showed WBC 8.7 hemoglobin 9.8 and platelets 317, INR 1.5 Sodium 134 potassium 3.5 chloride 110, BUN 35 and creatinine 0.62 and magnesium 1.6 albumin 1.3 and liver enzymes are not elevated troponin x 1 negative Urinalysis showed cloudy with 2+ protein 1+ ketones nitrite positive large leukocyte esterase with elevated RBCs and WBCs. UDS is positive for oxycodone, methamphetamine and cocaine 07/19/2024 Patient is in the MedSurg unit. Awake alert but lethargic and drowsy. Able to follow simple commands. Patient has been afebrile. Patient was not able to tolerate regular diet and was seen by speech pathology. Started on pured diet with one-to-one supervision. Patient has been continued on normal saline at 75 cc/h. Also on antibiotics now, cefepime and Flagyl. Laboratory data showed WBC 10.7 hemoglobin 9.2 and platelets 264 sodium 136 potassium 4.3 chloride 113 bicarb is 17.1 and BUN 32.3 and creatinine 0.5 blood sugar was 60 and calcium 8.2. 07/20/2024 Patient is lethargic and weak. Tries to open her eyes with verbal commands. U jillian to provide any history. Not able to tolerate oral diet. IV fluids changed to D5 normal saline due to blood sugar being 60 this morning.. Patient has been afebrile. Continued on antibiotics cefepime and metronidazole and also on well-controlled. Blood cultures negative so far. Wound care with wound VAC in place. Telemetry showed A-fib with RVR with heart rate around 111. Patient will be transferred to telemetry unit and will be given metoprolol 5 mg IV push. Patient is unable to take her metoprolol p.o. Laboratory data showed WBC 8.6 hemoglobin 8.5 and platelets 266 sodium 139 pota ssium 5.6 with hemolysis, chloride 119 bicarb is 13 BUN 37 creatinine 0.63 and blood sugar 60. 07/21/2024 Patient is lethargic and moaning. Unable to open her eyes. Not able to tolerate oral diet. Currently being continued on IV hydration with D5 normal saline. IV antibiotics in the form of ertapenem. Continued on wound care with wound VAC. Currently on room air. Laboratory showed WBC 11.7 hemoglobin 9.0 and platelets 319 sodium 139 potassium 3.6 chloride 109 bicarb 16 BUN 39 and creatinine 0.74 and blood sugar 121. Ammonia less than 9. Patient was seen by cardiology. Neurology and general surgery was consulted for further evaluation. 07/22/2024 Patient's mental status remains the same. Encephalopathic and moaning. Unable to open eyes with verbal stimuli and follow commands. Patient has been afebrile. Currently on room air. Continued on IV hydration with D5 normal saline. Also on Lasix 40 mg every 12. General surgery was seen the patient for possible ileus. Continued on antibiotics in the form of ertapenem and metronidazole.Wound VAC in place due to the sacral wounds and abdominal wound. Laboratory data showed WBC 10.9 hemoglobin dropped down to 7.5 today and platele ts 208 sodium 142 potassium 2.8 which is being replaced. Bicarb is 13 BUN 38 and creatinine 0.81 and blood sugar 117 Due to multimedical problems and comorbid conditions and poor prognosis family would like to discuss with hospice care. Current medications reviewed. Objective - Vital Signs Vital signs: Vital Signs Temp 96.4 F L 07/22/24 11:53 Pulse 79 07/22/24 11:53 Resp 20 07/22/24 11:53 BP 107/55 07/22/24 11:53 Pulse Ox 98 07/22/24 11:53 FiO2 Intake & Output 07/21/24 07/22/24 07/22/24 18:59 06:59 18:59 Intake Total 10 20 10 Output Total 400 100 300 Balance -390 -80 -290 Weight 83.5 kg Intake: IV 10 20 10 Invasive Line 1 10 20 10 Oral 0 Output: Urine 400 100 300 Other: Voiding Method Indwelling Catheter Indwelling Catheter Indwelling Catheter # Bowel Movements 1 - Exam PHYSICAL EXAMINATION: Patient is lying in the bed, patient is unable to open her eyes with verbal stimuli. Morning. HEENT: Normocephalic. Neck is supple. Pupils reactive. Nostrils clear. Oral cavity is moist. Neck reveals no JVD, carotid bruits, or thyromegaly. CHEST EXAMINATION: Trachea is central. Symmetrical expansion. Lung gandhi clear to auscultation and percussion. CARDIAC: Normal S1, S2 with no gallops. No murmurs ABDOMEN: Soft. Bowel sounds present. Abdominal wound and sacral wounds with wound VAC. No organomegaly. No abdominal bruits. Extremities: reveal no edema. Puffiness of the bilateral upper extremities. No clubbing or cyanosis Neurologically patient is unable to open her eyes with verbal stimuli... No gross focal deficits noted Skin: No rash or skin lesions. Psychiatric: Coperative. Could not be assessed completely Musculoskeletal: No joint swelling or deformity. - Labs CBC & Chem 7: 07/22/24 07:33 07/22/24 13:30 Labs: Abnormal Lab Results - Last 24 Hours (Table) 07/22/24 07/22/24 07/22/24 Range/Units 00:10 06:06 07:33 WBC 10.9 H (3.8-10.6) k/uL RBC 2.92 L (3.80-5.40) m/uL Hgb 7.5 L D (11.4-16.0) gm/dL Hct 26.8 L (34.0-46.0) % MCHC 28.1 L (31.0-37.0) g/dL RDW 19.5 H (11.5-15.5) % Neutrophils # 8.6 H (1.3-7.7) k/uL Potassium (3.5-5.1) mmol/L Chloride (98-107) mmol/L Carbon Dioxide (22-30) mmol/L BUN (7-17) mg/dL Glucose (74-99) mg/dL POC Glucose (mg/dL) 162 H 157 H (70-110) mg/dL 07/22/24 07/22/24 Range/Units 12:17 13:30 WBC (3.8-10.6) k/uL RBC (3.80-5.40) m/uL Hgb (11.4-16.0) gm/dL Hct (34.0-46.0) % MCHC (31.0-37.0) g/dL RDW (11.5-15.5) % Neutrophils # (1.3-7.7) k/uL Potassium 2.8 L (3.5-5.1) mmol/L Chloride 121 H (98-107) mmol/L Carbon Dioxide 13 L (22-30) mmol/L BUN 38 H (7-17) mg/dL Glucose 117 H (74-99) mg/dL POC Glucose (mg/dL) 132 H (70-110) mg/dL Microbiology - Last 24 Hours (Table) 07/20/24 10:39 Urine Culture - Preliminary Urine,Voided 07/19/24 14:26 Blood Culture - Preliminary Blood Assessment and Plan Assessment: Altered mental status due to metabolic and toxic encephalopathy. Mentation did not show much improvement. UDS positive for oxycodone, methamphetamine send cocaine. Repeat UDS showed oxycodone and opiates. Dehydration volume depletion Possible urinary tract infection. Urine culture showed Daria. Recent infected sacral ulcer unstageable failed outpatient therapy status post surgical debridement and wound cultures growing Proteus and Enterococcus patient is on IV antibiotics in the form of surgery recommend metronidazole via PICC line. Patient was discharged on 07/06/2024 Paroxysmal atrial fibrillation not on anticoagulation. Patient is taking aspirin and Plavix. She has not been taking Eliquis since she coughed up blood in June. Hypertension Hyperlipidemia Normocytic anemia DVT prophylaxis and GI prophylax with heparin subcu and PPI Plan: Patient will be continued on IV hydration with D5 normal saline. Patient was given a dose of Levaquin IV in the ER. Continue with cefepime and metronidazole. Urine culture showed Daria. Patient is also started on voriconazole. ID is on board change antibiotics to above ertapenem. Avoid narcotic pain medication use. Replace electrolytes. Continue with home medications including metoprolol and GI and DVT prophylaxis. Follow-up closely. PT OT was consulted but unable to participate.. With pathology has seen the patient and recommended honey thickened liquids which she is not able to take today. Continue with wound care with the wound VAC. Discussed with the patient and her daughter at bedside in detail. Prognosis is guarded at this time due to multiple medical problems and comorbid conditions. Cardiology-the patient and recommended IV Lasix Neurology and general surgery is on board. EEG was done. Hospice care consult and possible comfort care measures as per family discussion. Time with Patient: Greater than 30
--- NOTE | 2024-07-22 17:58 | P.CNNES ---
History of Present Illness Consult date: 07/22/24 Requesting physician: Oz Dupree Reason for Consult: ams History of Present Illness: This is a 73-year-old woman who has diverticulitis status post resection of the ileum in May 2024, and had a prolonged stay in May, surgical wound, status due to her sacral wounds altered mental status. According to the patient ever since her diverticulitis with a prolonged hospital stay patient has not been the same and it seems to the patient is more altered and only moaning groaning for the last 5 days. She stated at home she was noted when she picked at a cup nikki either on the right or left hand she would drop it and she will talk and while she was talking she was stopped talking but currently she is co mpletely not responding and just moaning and groaning. She does not have any history of stroke or TIA or any history of seizure in the past. Is on cefepime, metronidazole. Some of the workup during this hospital visit consisted of: temp is 96.4F. wbc is 10.9K Serum glucose is 60 Ammonia <9 TSH on 05/[address] head on 07/18/2024 is reported as no acute intracranial process. I personally reviewed the CT and agree with the report Repeated CT head on 07/21/2024 is reported as no acute intracranial process. I personally reviewed the CT and agree with the report. Urine culture is positive for annika Krusei Review of Systems Limited but as per HPI. Past Medical History Past Medical History: Atrial Fibrillation, Hyperlipidemia, Hypertension, Myocardial Infarction ([place]) Additional Past Medical History / Comment(s): stage 4 pressure ulcer on buttocks Last Myocardial Infarction Date:: 09/07/2023 History of Any Multi-Drug Resistant Organisms: MRSA Date of last positivie culture/infection: 06/27/24 MDRO Source:: coccyx Past Surgical History: Heart Catheterization With Stent Additional Past Surgical History / Comment(s): Cardiac stents, perferated bowel with ostomy Past Anesthesia/Blood Transfusion Reactions: No Reported Reaction Date of Last Stent Placement:: 09/07/2023 Past Psychological History: No Psychological Hx Reported Smoking Status: Never smoker Past Alcohol Use History: None Reported Past Drug Use History: None Reported Medications and Allergies Home Medications Medication Instructions Recorded Confirmed Type Aspirin EC [Ecotrin Low Dose] 81 mg PO DAILY 12/02/17 07/18/24 History Atorvastatin [Lipitor] 40 mg PO DAILY #90 tab 09/11/23 07/18/24 Rx Nitroglycerin Sl Tabs [Nitrostat] 0.4 mg SL Q5M PRN 05/09/24 07/18/24 History Metoprolol Succinate [Metoprolol 25 mg PO BID 06/27/24 07/18/24 History Succinate ER] Prochlorperazine [Compazine] 10 mg PO Q6H PRN 06/27/24 07/18/24 History oxyCODONE-APAP 5-325MG [Percocet 1 tab PO Q6HR PRN 06/27/24 07/18/24 History 5-325 mg] Cefepime [Maxipime] 2 gm IVPB Q8HR each 07/06/24 07/18/24 Rx Clopidogrel [Plavix] 75 mg PO DAILY #0 07/06/24 07/18/24 Rx DULoxetine HCL [Cymbalta] 60 mg PO DAILY #30 cap 07/06/24 07/18/24 Rx Famotidine [Pepcid] 20 mg PO BID #60 tab 07/06/24 07/18/24 Rx Nystatin 100,000 Unit/ml Susp 500,000 unit PO QID #360 ml 07/06/24 07/18/24 Rx [Mycostatin Oral Susp] metroNIDAZOLE [Flagyl] 500 mg PO TID #126 tab 07/06/24 07/18/24 Rx Ondansetron [Zofran] 4 mg PO Q8H PRN 07/18/24 07/18/24 History oxyCODONE HCL [oxyCODONE HCL (IR)] 10 mg PO Q4H PRN 07/18/24 07/18/24 History Allergies Allergy/AdvReac Type Severity Reaction Status Date / Time Iodinated Contrast Media Allergy Wheezing/hi Verified 07/18/24 10:16 ves iodine Allergy Wheezing/hi Verified 07/18/24 10:16 ves Physical Examination - Vital Signs Vital Signs: Vital Signs Temp Pulse Pulse Resp BP Pulse Ox 07/22/24 11:53 96.4 F L 79 20 107/55 98 07/22/24 07:42 96.6 F L 75 20 119/69 99 07/22/24 04:15 74 20 96/70 98 07/22/24 00:15 84 20 108/70 94 L 07/21/24 21:10 138 H 07/21/24 20:40 97.3 F L 89 20 92/67 99 07/21/24 20:30 114 H 07/21/24 20:00 111 H Intake and Output 07/22/24 07/22/24 07/22/24 06:59 14:59 22:59 Intake Total 10 10 Output Total 100 300 Balance -90 -290 Intake: IV 10 10 Invasive Line 1 10 10 Output: Urine 100 300 Other: Voiding Method Indwelling Catheter Indwelling Catheter # Bowel Movements 1 Weight 83.5 kg General: Lying in bed and does not appear in acute distress. Neuro: Very limited. She is obtunded and she will open eyes to painful stimuli and the pupils appear about 2 to 3 mm bilaterally reactive to light. Otherwise with painful stimuli s he moans and groans otherwise she does not verbalize or follow commands. No apparent facial weakness. Motor: Hard to assess but no spontaneous movement. Results - Laboratory Findings CBC and BMP: 07/22/24 07:33 07/22/24 13:30 Abnormal Lab Findings: Abnormal Labs 07/18/24 07/18/24 07/18/24 10:54 11:04 11:04 WBC RBC Hgb 9.8 L Hct 31.7 L MCH MCHC 30.9 L RDW 19.3 H Immature Gran # Neutrophils # Lymphocytes # 0.9 L Monocytes # Eosinophils # PT 15.3 H INR 1.5 H APTT 40.1 H Sodium Potassium Chloride Carbon Dioxide BUN Creatinine BUN/Creatinine Ratio Glucose POC Glucose (mg/dL) Calcium Total Protein Albumin Urine Appearance Cloudy H Urine Protein 2+ H Urine Ketones 1+ H Urine Blood Large H Urine Nitrite Positive H Ur Leukocyte Esterase Large H Urine RBC 174 H Urine WBC 111 H Calcium Oxalate Crystal Occasional H Urine Bacteria Hyaline Casts Urine Mucus Rare H Urine Yeast (Budding) Many H Urine Opiates Screen Ur Oxycodone Screen U Methamphetamines Scrn Urine Cocaine Screen 07/18/24 07/18/24 07/19/24 11:04 11:04 06:25 WBC 10.76 H RBC 3.65 L Hgb 9.2 L Hct 31.0 L MCH 25.2 L MCHC 29.7 L RDW 21.1 H Immature Gran # 0.05 H Neutrophils # 8.17 H Lymphocytes # Monocytes # 1.17 H Eosinophils # 0 L PT INR APTT Sodium 134 L Potassium Chloride 110 H Carbon Dioxide 20 L BUN 35 H Creatinine BUN/Creatinine Ratio Glucose POC Glucose (mg/dL) Calcium Total Protein 5.8 L Albumin 1.7 L Urine Appearance Urine Protein Urine Ketones Urine Blood Urine Nitrite Ur Leukocyte Esterase Urine RBC Urine WBC Calcium Oxalate Crystal Urine Bacteria Hyaline Casts Urine Mucus Urine Yeast (Budding) Urine Opiates Screen Ur Oxycodone Screen Detected H U Methamphetamines Scrn Detected H Urine Cocaine Screen Detected H 07/19/24 07/19/24 07/20/24 06:25 11:14 06:40 WBC RBC 3.23 L Hgb 8.5 L Hct 27.2 L MCH MCHC RDW 19.8 H Immature Gran # Neutrophils # Lymphocytes # Monocytes # Eosinophils # PT INR APTT Sodium Potassium Chloride 113 H Carbon Dioxide 17.1 L BUN 32.3 H Creatinine 0.5 L BUN/Creatinine Ratio 64.60 H Glucose 60 L POC Glucose (mg/dL) Calcium 8.2 L Total Protein Albumin Urine Appearance Urine Protein Urine Ketones Urine Blood Urine Nitrite Ur Leukocyte Esterase Urine RBC Urine WBC Calcium Oxalate Crystal Urine Bacteria Hyaline Casts Urine Mucus Urine Yeast (Budding) Urine Opiates Screen Detected H Ur Oxycodone Screen Detected H U Methamphetamines Scrn Urine Cocaine Screen 07/20/24 07/20/24 07/21/24 06:40 10:39 06:09 WBC RBC Hgb Hct MCH MCHC RDW Immature Gran # Neutrophils # Lymphocytes # Monocytes # Eosinophils # PT INR APTT Sodium Potassium 5.6 H Chloride 119 H Carbon Dioxide 13 L BUN 37 H Creatinine BUN/Creatinine Ratio Glucose 60 L POC Glucose (mg/dL) 112 H Calcium 8.1 L Total Protein Albumin Urine Appearance Cloudy H Urine Protein 2+ H Urine Ketones 1+ H Urine Blood Large H Urine Nitrite Ur Leukocyte Esterase Large H Urine RBC 62 H Urine WBC >182 H Calcium Oxalate Crystal Occasional H Urine Bacteria Rare H Hyaline Casts 3 H Urine Mucus Rare H Urine Yeast (Budding) Many H Urine Opiates Screen Ur Oxycodone Screen U Methamphetamines Scrn Urine Cocaine Screen 07/21/24 07/21/24 07/21/24 08:42 09:27 11:54 WBC 11.7 H RBC 3.55 L Hgb 9.0 L Hct 31.1 L MCH MCHC 28.9 L RDW 19.6 H Immature Gran # Neutrophils # 9.1 H Lymphocytes # Monocytes # Eosinophils # PT INR APTT Sodium Potassium Chloride 119 H Carbon Dioxide 16 L BUN 39 H Creatinine BUN/Creatinine Ratio Glucose 121 H POC Glucose (mg/dL) 126 H Calcium Total Protein Albumin Urine Appearance Urine Protein Urine Ketones Urine Blood Urine Nitrite Ur Leukocyte Esterase Urine RBC Urine WBC Calcium Oxalate Crystal Urine Bacteria Hyaline Casts Urine Mucus Urine Yeast (Budding) Urine Opiates Screen Ur Oxycodone Screen U Methamphetamines Scrn Urine Cocaine Screen 07/21/24 07/22/24 07/22/24 17:25 00:10 06:06 WBC RBC Hgb Hct MCH MCHC RDW Immature Gran # Neutrophils # Lymphocytes # Monocytes # Eosinophils # PT INR APTT Sodium Potassium Chloride Carbon Dioxide BUN Creatinine BUN/Creatinine Ratio Glucose POC Glucose (mg/dL) 127 H 162 H 157 H Calcium Total Protein Albumin Urine Appearance Urine Protein Urine Ketones Urine Blood Urine Nitrite Ur Leukocyte Esterase Urine RBC Urine WBC Calcium Oxalate Crystal Urine Bacteria Hyaline Casts Urine Mucus Urine Yeast (Budding) Urine Opiates Screen Ur Oxycodone Screen U Methamphetamines Scrn Urine Cocaine Screen 07/22/24 07/22/24 07/22/24 07:33 12:17 13:30 WBC 10.9 H RBC 2.92 L Hgb 7.5 L D Hct 26.8 L MCH MCHC 28.1 L RDW 19.5 H Immature Gran # Neutrophils # 8.6 H Lymphocytes # Monocytes # Eosinophils # PT INR APTT Sodium Potassium 2.8 L Chloride 121 H Carbon Dioxide 13 L BUN 38 H Creatinine BUN/Creatinine Ratio Glucose 117 H POC Glucose (mg/dL) 132 H Calcium Total Protein Albumin Urine Appearance Urine Protein Urine Ketones Urine Blood Urine Nitrite Ur Leukocyte Esterase Urine RBC Urine WBC Calcium Oxalate Crystal Urine Bacteria Hyaline Casts Urine Mucus Urine Yeast (Budding) Urine Opiates Screen Ur Oxycodone Screen U Methamphetamines Scrn Urine Cocaine Screen Assessment and Plan Assessment: This is a 73-year-old woman who has diverticulitis status post resection of the ileum in May 2024, and had a prolonged stay in May, surgical wound, status due to her sacral wounds altered mental status for past 5 days. Urine culture is positive for r annika Krusei. Is on Cefepime and Metronidazole. Has hypoglycemia as low as 60's. Altered mental status and seems due to multifactorial: Metabolic encephalopathy, medication use (Cefepime) and underlying infection (annika). Had two CT head and is negative for acute or subactue stroke or bleed. Plan: I ordered routine EEG. Ordered Vitamin B12, folate level. I.D. is on board. If possible change Cefepime and if possible avoid cephalosporin. Will defer the rest of medical management to primary and other specialist. I spoke with primary attending and he consulted hospice. The plan is discussed with her daughter and primary attending. Thank you for the consultation. Time with Patient: Greater than 30
[2024-07-22 18:26] LABS: Glucose,Whole Blood 120 mg/dL (70-110)
[2024-07-22] MEDS: POTASSIUM CHLORIDE 20 MEQ in WATER FOR INJECTION 1 100ML.BAG IVPB STA (18:28)
[2024-07-22] MEDS: LACTATED RINGERS 1,000 ML IV SCH (18:29)
--- NOTE | 2024-07-22 23:42 | EEG ---
ELECTROENCEPHALOGRAM REPORT CLINICAL HISTORY: This is a 73-year-old woman with altered mental status. The video EEG is obtained to evaluate for seizure epileptiform activity. RELEVANT MEDICATION: Cymbalta. EEG TYPE: This is a routine 21-channel EEG with video using the 10/20 electrode placement system. DESCRIPTION: Background consists of [id number] voltage of 2.5 to 3.5 hertz delta activity and sometimes rarely reaches to the 5 hertz activity. There was no physiological stage 2 sleep architecture. There is no focal slowing. At rare times, there is a diffuse suppression lasting 1 to 2 seconds intermixed with some delta theta activity. Interictal and ictal, there is sharply contoured activity over bilateral frontal, bilateral temporal region, but appears more bilateral temporal. There is no epileptiform discharges or seizure noted or evolution with these sharply contoured activity. ACTIVATION PROCEDURE: Photic stimulation and hyperventilation are not performed. CLINICAL INTERPRETATION: This is an abnormal routine EEG. The background slowing is suggestive of severe encephalopathy. There is sharply contoured activity over the bilateral temporal as well as frontal, but more temporal than frontal which can increase risk of cortical irritability. There is no evolution with these sharply contoured activity and no clear epileptiform discharges or seizure on the EEG. Sharply contoured activity can increase risk of cortical irritability. Clinical correlation is recommended. MMODL / IJN: [id number] / HERMINIA
[2024-07-22 23:56] LABS: Glucose,Whole Blood 89 mg/dL (70-110)
[2024-07-23 05:56] LABS: Glucose,Whole Blood 75 mg/dL (70-110)
[2024-07-23 10:13] LABS: African American GFR (CKD) 76 (>60 ml/min/1.73 sqM); Anion Gap 6 mmol/L; Blood Urea Nitrogen 40 mg/dL (7-17); Calcium 8.5 mg/dL (8.4-10.2); Carbon Dioxide 13 mmol/L (22-30); Chloride 122 mmol/L (98-107); Glucose 76 mg/dL (74-99); Non-African American GFR(CKD) 66 (>60 ml/min/1.73 sqM); Potassium 2.8 mmol/L (3.5-5.1); Sodium 141 mmol/L (137-145)
--- NOTE | 2024-07-23 10:29 | P.PN ---
Subjective Progress Note Date: 07/23/24 Principal diagnosis: Ileus Patient remains nonresponsive. Patient's daughter at the bedside. EEG performed last night. Neurology following. No vomiting. Nasogastric tube plac ed with minimal output. Yesterday's abdominal x-rays show no definite obstructive pattern or ileus. Objective - Vital Signs Vital signs: Vital Signs Temp 97.4 F L 07/23/24 04:00 Pulse 78 07/23/24 04:00 Resp 20 07/23/24 04:00 BP 87/66 07/23/24 04:00 Pulse Ox 99 07/23/24 04:00 FiO2 Intake & Output 07/22/24 07/23/24 07/23/24 18:59 06:59 18:59 Intake Total 20 20 Output Total 300 Balance -280 20 Intake: IV 20 20 Invasive Line 1 20 20 Oral 0 Output: Urine 300 Other: Voiding Method Indwelling Catheter Indwelling Catheter # Bowel Movements 1 - Exam Abdomen: Soft, nondistended, nontender, ostomy pink without stool or flatus, wound VAC in place - Labs CBC & Chem 7: 07/22/24 07:33 07/23/24 09:30 Labs: Abnormal Lab Results - Last 24 Hours (Table) 07/22/24 07/22/24 07/22/24 Range/Units 12:17 13:30 13:30 Potassium 2.8 L (3.5-5.1) mmol/L Chloride 121 H (98-107) mmol/L Carbon Dioxide 13 L (22-30) mmol/L BUN 38 H (7-17) mg/dL Glucose 117 H (74-99) mg/dL POC Glucose (mg/dL) 132 H (70-110) mg/dL Vitamin B12 1456.0 H (200.0-944.0) pg/mL 07/22/24 07/23/24 Range/Units 18:19 09:30 Potassium 2.8 L (3.5-5.1) mmol/L Chloride 122 H (98-107) mmol/L Carbon Dioxide 13 L (22-30) mmol/L BUN 40 H (7-17) mg/dL Glucose (74-99) mg/dL POC Glucose (mg/dL) 120 H (70-110) mg/dL Vitamin B12 (200.0-944.0) pg/mL Microbiology - Last 24 Hours (Table) 07/20/24 10:39 Urine Culture - Preliminary Urine,Voided Daria krusei 07/19/24 14:26 Blood Culture - Preliminary Blood Assessment and Plan (1) Ileus Narrative/Plan: 73-year-old female with change in mental status and suspected fungal UTI. Agree with nasogastric tube placement. If output remains low may consider low-dose tube feeds to see how the patient tolerates. Will follow. Continue local wound care. Current Visit: Yes Status: Acute Code(s): K56.7 - ILEUS, UNSPECIFIED SNOMED Code(s): 593917156
[2024-07-23 12:19] LABS: Glucose,Whole Blood 54 mg/dL (70-110)
[2024-07-23] MEDS: DEXTROSE 50% SYRINGE 50 ML IVP STA (12:31)
--- NOTE | 2024-07-23 13:55 | P.PN ---
Subjective Progress Note Date: 07/23/24 Principal diagnosis: Reason for follow-up is infected sacral ulcer and UTI Patient is a 73-year-old female with a past medical history significant for hypertension hyperlipidemia OR atrial fibrillation, perforated diverticulitis with an abscess abdominal wound dehiscence and a sacral pressure ulcer/osteomyelitis has been brought back to the hospital concerning for mental status changes and possible UTI. On today's evaluation that is 07/23/2024, patient has been afebrile, patient is breathing comfortably and is currently on room air, patient remains to be unresponsive and is moaning and cannot provide any history she did have an NG but not hooked up to suction no other changes reported by the nursing staff. Patient did have a creatinine 0.87 no CBC was done today last white count was 10.9 as of yesterday Objective - Vital Signs Vital signs: Vital Signs Temp 97.4 F L 07/23/24 04:00 Pulse 78 07/23/24 04:00 Resp 20 07/23/24 04:00 BP 87/66 07/23/24 04:00 Pulse Ox 99 07/23/24 04:00 FiO2 Intake & Output 07/22/24 07/23/24 07/23/24 18:59 06:59 18:59 Intake Total 20 20 Output Total 300 Balance -280 20 Intake: IV 20 20 Invasive Line 1 20 20 Oral 0 Output: Urine 300 Other: Voiding Method Indwelling Catheter Indwelling Catheter # Bowel Movements 1 - Exam GENERAL DESCRIPTION: An elderly female lying in bed in no distress RESPIRATORY SYSTEM: Unlabored breathing , decreased breath sounds at bases HEART: S1 S2 regular rate and rhythm , ABDOMEN: Soft , no tenderness EXTREMITIES: Swelling to bilateral lower extremity no redness - Labs CBC & Chem 7: 07/22/24 07:33 07/23/24 09:30 Labs: Abnormal Lab Results - Last 24 Hours (Table) 07/22/24 07/22/24 07/22/24 Range/Units 12:17 13:30 13:30 Potassium 2.8 L (3.5-5.1) mmol/L Chloride 121 H (98-107) mmol/L Carbon Dioxide 13 L (22-30) mmol/L BUN 38 H (7-17) mg/dL Glucose 117 H (74-99) mg/dL POC Glucose (mg/dL) 132 H (70-110) mg/dL Vitamin B12 1456.0 H (200.0-944.0) pg/mL 07/22/24 07/23/24 Range/Units 18:19 09:30 Potassium 2.8 L (3.5-5.1) mmol/L Chloride 122 H (98-107) mmol/L Carbon Dioxide 13 L (22-30) mmol/L BUN 40 H (7-17) mg/dL Glucose (74-99) mg/dL POC Glucose (mg/dL) 120 H (70-110) mg/dL Vitamin B12 (200.0-944.0) pg/mL Microbiology - Last 24 Hours (Table) 07/20/24 10:39 Urine Culture - Preliminary Urine,Voided Daria krusei 07/19/24 14:26 Blood Culture - Preliminary Blood Assessment and Plan (1) UTI (urinary tract infection) Current Visit: Yes Status: Acute Code(s): N39.0 - URINARY TRACT INFECTION, SITE NOT SPECIFIED SNOMED Code(s): 80512741 (2) Sacral osteomyelitis Current Visit: No Status: Acute Code(s): M46.28 - OSTEOMYELITIS OF VERTEBRA, SACRAL AND SACROCOCCYGEAL REGION SNOMED Code(s): 275663314 (3) Sacral ulcer Current Visit: No Status: Acute Code(s): L98.429 - NON-PRESSURE CHRONIC ULCER OF BACK WITH UNSPECIFIED SEVERITY SNOMED Code(s): 85746153 Plan: 1patient presented to hospital with weakness mental status change which is likely multifactorial there was concern for possible catheter assisted UTI however the patient urine drug screen is also positive for oxycodone methamphetamines and cocaine may be contributing to some of her weakness and mental status changes 2-patient also have a infected sacral pressure ulcer with a recent Proteus bacteremia. 3-Duarte catheter has been changed and cultures are currently growing Daria krusei with a question of possible Duarte colonization as the Duarte has already been changed repeat UA is positive patient was started on voriconazole as of 07/20/2024 4-patient antibiotic has been switched over to Invanz concerning for possible cefepime related encephalopathy, however no improvement in his encephalopathy after discontinuation of the cefepime neurology is following the patient closely 5patient is getting her voriconazole through the NG confirmed by the nursing staff today Dictation was produced using [employer] dictation software. please excuse any grammatical, word or spelling errors. Time with Patient: Less than 30
--- NOTE | 2024-07-23 14:43 | P.PN ---
Subjective Progress Note Date: 07/23/24 I am following up with the patient and according to the daughter was at bedside patient is about the same. No improvement in the patient. She has NG tube. Objective - Vital Signs Vital signs: Vital Signs Temp 97.4 F L 07/23/24 04:00 Pulse 78 07/23/24 04:00 Resp 20 07/23/24 04:00 BP 87/66 07/23/24 04:00 Pulse Ox 99 07/23/24 04:00 FiO2 Intake & Output 07/22/24 07/23/24 07/23/24 18:59 06:59 18:59 Intake Total 20 20 Output Total 300 Balance -280 20 Intake: IV 20 20 Invasive Line 1 20 20 Oral 0 Output: Urine 300 Other: Voiding Method Indwelling Catheter Indwelling Catheter # Bowel Movements 1 - Exam General: Lying in bed and does not appear in acute distress. HENT: Has NG tube. Neuro: Very limited. She is obtunded. She moans and groans otherwise she does not verbalize or follow commands. No apparent facial weakness. Motor: Hard to assess but no spontaneous movement. Some of the workup during this hospital visit consisted of: temp is 96.4F. wbc is 10.9K Serum glucose is 60 Ammonia <9 Folate is 8.10 Vitamin B12: 1456 TSH on 05/[address] head on 07/18/2024 is reported as no acute intracranial process. I personally reviewed the CT and agree with the report Repeated CT head on 07/21/2024 is reported as no acute intracranial process. I personally reviewed the CT and agree with the report. Urine culture is positive for daria Krusei Routine EEG: Is abnormal. The background slowing is suggestive of severe encephalopathy. There are sharply contoured activity over the bilateral tem poral as well as frontal but more temporal than frontal which can increase risk of cortical irritability. There is no evolution with these sharply contoured activity and no clear epileptiform discharge or seizure on the EEG. - Labs CBC & Chem 7: 07/22/24 07:33 07/23/24 09:30 Labs: Abnormal Lab Results - Last 24 Hours (Table) 07/22/24 07/22/24 07/23/24 Range/Units 13:30 18:19 09:30 Potassium 2.8 L (3.5-5.1) mmol/L Chloride 122 H (98-107) mmol/L Carbon Dioxide 13 L (22-30) mmol/L BUN 40 H (7-17) mg/dL POC Glucose (mg/dL) 120 H (70-110) mg/dL Vitamin B12 1456.0 H (200.0-944.0) pg/mL 07/23/24 Range/Units 12:18 Potassium (3.5-5.1) mmol/L Chloride (98-107) mmol/L Carbon Dioxide (22-30) mmol/L BUN (7-17) mg/dL POC Glucose (mg/dL) 54 L (70-110) mg/dL Vitamin B12 (200.0-944.0) pg/mL Microbiology - Last 24 Hours (Table) 07/20/24 10:39 Urine Culture - Preliminary Urine,Voided Daria krusei 07/19/24 14:26 Blood Culture - Preliminary Blood Assessment and Plan Assessment: This is a 73-year-old woman who has diverticulitis status post resection of the ileum in May 2024, and had a prolonged stay in May, surgical wound, status due to her sacral wounds altered mental status for past 5 days. Urine culture is positive for r daria Krusei. Is on Cefepime and Metronidazole. Has hypoglycemia as low as 60's. Severed altered mental status and seems due to multifactorial: Metabolic encephalopathy, medication use (Cefepime) and underlying infection (daria). Had two CT head and is negative for acute or subactue stroke or bleed. Has sharply contoured activity over bilateral temporal > frontal but no seizure or clear discharges. Plan: I started patient on Keppra 500mg bid yesterday for sharply contoured activity as empiric treatment and will go up to 1gm bid. Will obtain a repeat EEG for this Thursday. I.D. is on board. If possible change Cefepime and if possible avoid cephalosporin. This does not seems meningoencephalitis but if continues to be confused consider Lumbar Puncture if daughter is adamant on further investigation. Will defer the rest of medical management to primary and other specialist. I spoke with primary attending and he consulted hospice. The plan is discussed with her daughter. Dr. Corona will resume neurology service on 07/25/2024 A.M. Time with Patient: Less than 30
--- NOTE | 2024-07-23 16:37 | P.PN ---
Subjective Progress Note Date: 07/23/24 Interval History: Patient is a 72-year-old female with a known history of infected unstageable pressure ulcer of the sacrum with recent debridement with cultures growing Proteus and Enterococcus was sent home on antibiotics in the form of cefepime and metronidazole on 07/06/2024. Other medical problems include CAD status post stent placement, paroxysmal atrial fibrillation not on anticoagulation, hypertension, hyperlipidemia, anemia. Patient present back to the hospital due to altered mental status. According to her daughter patient has been very weak and lethargic since yesterday. Patient has been also becoming slow to respond. Patient would also question but in the middle of sentence she fall back asleep. Home visiting nurse also noticed that her Duarte and also feeling of and is concerned about retaining of urine. Urine is also much darker and also concerned about urinary tract infection. Denied any fever or chills. No cough or sputum production. Patient blood pressure 92/69 pulse is 89 respirations 16 and pulse ox 100% on room air. CT head showed no acute intracranial process. Follow-up MRI can be performed as clinically indicated. Chest x-ray showed no acute pulmonary process. EKG showed atrial fibrillation with heart rate 88. Laboratory data showed WBC 8.7 hemoglobin 9.8 and platelets 317, INR 1.5 Sodium 134 potassium 3.5 chloride 110, BUN 35 and creatinine 0.62 and magnesium 1.6 albumin 1.3 and liver enzymes are not elevated troponin x 1 negative Urinalysis showed cloudy with 2+ protein 1+ ketones nitrite positive large leukocyte esterase with elevated RBCs and WBCs. UDS is positive for oxycodone, methamphetamine and cocaine 07/19/2024 Patient is in the MedSurg unit. Awake alert but lethargic and drowsy. Able to follow simple commands. Patient has been afebrile. Patient was not able to tolerate regular diet and was seen by speech pathology. Started on pured diet with one-to-one supervision. Patient has been continued on normal saline at 75 cc/h. Also on antibiotics now, cefepime and Flagyl. Laboratory data showed WBC 10.7 hemoglobin 9.2 and platelets 264 sodium 136 potassium 4.3 chloride 113 bicarb is 17.1 and BUN 32.3 and creatinine 0.5 blood sugar was 60 and calcium 8.2. 07/20/2024 Patient is lethargic and weak. Tries to open her eyes with verbal commands. Unable to provide any history. Not able to tolerate oral diet. IV fluids changed to D5 normal saline due to blood sugar being 60 this morning.. Patient has been afebrile. Continued on antibiotics cefepime and metronidazole and also on well-controlled. Blood cultures negative so far. Wound care with wound VAC in place. Telemetry showed A-fib with RVR with heart rate around 111. Patient will be transferred to telemetry unit and will be given metoprolol 5 mg IV push. Patient is unable to take her metoprolol p.o. Laboratory data showed WBC 8.6 hemoglobin 8.5 and platelets 266 sodium 139 potassium 5.6 with hemolysis, chloride 119 bicarb is 13 BUN 37 creatinine 0.63 and blood sugar 60. 07/21/2024 Patient is lethargic and moaning. Unable to open her eyes. Not able to tole rate oral diet. Currently being continued on IV hydration with D5 normal saline. IV antibiotics in the form of ertapenem. Continued on wound care with wound VAC. Currently on room air. Laboratory showed WBC 11.7 hemoglobin 9.0 and platelets 319 sodium 139 potassium 3.6 chloride 109 bicarb 16 BUN 39 and creatinine 0.74 and blood sugar 121. Ammonia less than 9. Patient was seen by cardiology. Neurology and general surgery was consulted for further evaluation. 07/22/2024 Patient's mental status remains the same. Encephalopathic and moaning. Unable to open eyes with verbal stimuli and follow commands. Patient has been afebrile. Currently on room air. Continued on IV hydration with D5 normal saline. Also on Lasix 40 mg every 12. General surgery was seen the patient for possible ileus. Continued on antibiotics in the form of ertapenem and metronidazole.Wound VAC in place due to the sacral wounds and abdominal wound. Laboratory data showed WBC 10.9 hemoglobin dropped down to 7.5 today and platelets 208 sodium 142 potassium 2.8 which is being replaced. Bicarb is 13 BUN 38 and creatinine 0.81 and blood sugar 117 Due to multimedical problems and comorbid conditions and poor prognosis family would like to discuss with hospice care. 07/23/24--patient was seen and examined today. Mental status remains same, patient remains encephalopathic, moaning. A&O x 0. Unable to open eyes, does not following commands. Remained afebrile. On room air. Heart rate 92, respiratory rate 16, blood pressure 112/69, saturating 95%. BMP reviewed today, potassium 2.8, CO2 13, BUN 40. Creatinine 0.87. Family planning to transition to hospice. Assessment and plan: Altered mental status due to metabolic and toxic encephalopathy. Mentation did not show much improvement. UDS positive for oxycodone, methamphetamine send cocaine. Repeat UDS showed oxycodone and opiates. Dehydration volume depletion Possible urinary tract infection. Urine culture showed Daria. Recent infected sacral ulcer unstageable failed outpatient therapy status post surgical debridement and wound cultures growing Proteus and Enterococcus patient is on IV antibiotics in the form of surgery recommend metronidazole via PICC line. Patient was discharged on 07/06/2024 Paroxysmal atrial fibrillation not on anticoagulation. Patient is taking aspirin and Plavix. She has not been taking Eliquis since she coughed up blood in June. Hypertension Hyperlipidemia Normocytic anemia DVT prophylaxis and GI prophylax with heparin subcu and PPI Plan: Patient will be continued on IV hydration with D5 normal saline. Patient was given a dose of Levaquin IV in the ER. Continue with cefepime and metronidazole. Urine culture showed Daria. Patient is also started on voriconazole. ID is on board change antibiotics to above ertapenem. Avoid narcotic pain medication use. Replace electrolytes. Continue with home medications including metoprolol and GI and DVT prophylaxis. Follow-up closely. PT OT was consulted but unable to participate.. With pathology has seen the patient and recommended honey thickened liquids which she is not able to take today. Continue with wound care with the wound VAC. Discussed with the patient and her daughter at bedside in detail. Prognosis is guarded at this time due to multiple medical problems and comorbid conditions. Cardiology-the patient and recommended IV Lasix Neurology and general surgery is on board. EEG was done. Hospice care consult and possible comfort care measures per further decision by family. DVT prophylaxis: Subcutaneous heparin Monitor vital signs and labs Labs and medication were reviewed. Continue same treatment. Further recommendations as per clinical course of the patient PHYSICAL EXAMINATION: GENERAL: The patient is A&O x0 HEENT: EOMI, Sclerae anicteric, Moist Mucous membranes Neck: Supple, Non tender, No JVD PULMONARY: Equal breath souds B/L, No wheezing, No crackles. CARDIOVASCULAR: S1, S2 present. No murmurs, rubs, or gallops. ABDOMEN: Soft, nontender, nondistended, normoactive bowel sounds. No guarding or rebound tenderness. MUSCULOSKELETAL: ++ edema, No cyanosis. No clubbing. Normal ROM. Intact peripheral pulses. EXTREMITIES: No cyanosis, clubbing, or pedal edema. NEUROLOGICAL: Limited exam, A&O x 0. Skin: No Rash REVIEW OF SYSTEMS: Limited review of system, patient encephalopathy, ANO x 0. Dictation was produced using [employer] dictation software. please excuse any grammatical, word or spelling errors. Objective - Vital Signs Vital signs: Vital Signs Temp 97.8 F 07/23/24 09:30 Pulse 78 07/23/24 09:30 Resp 16 07/23/24 09:30 BP 112/69 07/23/24 09:30 Pulse Ox 95 07/23/24 09:30 FiO2 Intake & Output 07/22/24 07/23/24 07/23/24 18:59 06:59 18:59 Intake Total 20 20 Output Total 300 Balance -280 20 Intake: IV 20 20 Invasive Line 1 20 20 Oral 0 Output: Urine 300 Other: Voiding Method Indwelling Catheter Indwelling Catheter Indwelling Catheter # Bowel Movements 1 - Labs CBC & Chem 7: 07/22/24 07:33 07/23/24 09:30 Labs: Abnormal Lab Results - Last 24 Hours (Table) 07/22/24 07/22/24 07/23/24 Range/Units 13:30 18:19 09:30 Potassium 2.8 L (3.5-5.1) mmol/L Chloride 122 H (98-107) mmol/L Carbon Dioxide 13 L (22-30) mmol/L BUN 40 H (7-17) mg/dL POC Glucose (mg/dL) 120 H (70-110) mg/dL Vitamin B12 1456.0 H (200.0-944.0) pg/mL 07/23/24 Range/Units 12:18 Potassium (3.5-5.1) mmol/L Chloride (98-107) mmol/L Carbon Dioxide (22-30) mmol/L BUN (7-17) mg/dL POC Glucose (mg/dL) 54 L (70-110) mg/dL Vitamin B12 (200.0-944.0) pg/mL Microbiology - Last 24 Hours (Table) 07/20/24 10:39 Urine Culture - Preliminary Urine,Voided Daria krusei 07/19/24 14:26 Blood Culture - Preliminary Blood
[2024-07-23] MEDS: POTASSIUM BICARBONATE/CIT AC 20 MEQ TABLET.EFF PO SCH ×3 (17:36→23:50)
[2024-07-23 19:59] VITALS: TEMP 97.3
[2024-07-23 20:37] LABS: Glucose,Whole Blood 80 mg/dL (70-110)
[2024-07-23] MEDS: levETIRAcetam IV 500 MG/5 ML VIAL IVP SCH (21:22)
[2024-07-24 00:03] LABS: Glucose,Whole Blood 78 mg/dL (70-110)
[2024-07-24 03:00] LABS: Glucose,Whole Blood 65 mg/dL (70-110)
[2024-07-24 03:25] LABS: Glucose,Whole Blood 88 mg/dL (70-110)
[2024-07-24 03:58] LABS: Glucose,Whole Blood 140 mg/dL (70-110)
[2024-07-24 04:24] LABS: Anisocytosis Slight; Basophils % (A) 0 %; Eosinophils % (A) 0 %; HCT 27.1 % (34.0-46.0); HGB 8.1 gm/dL (11.4-16.0); Hypochromasia Marked; Lymphocytes # (A) 0.8 k/uL (1.0-4.8); Lymphocytes % (A) 8 %; MCH 25.9 pg (25.0-35.0); MCHC 29.8 g/dL (31.0-37.0); Mean Platelet Volume 7.8; Microcytosis Slight; Monocytes # (A) 0.3 k/uL (0-1.0); Monocytes % (A) 3 %; Neutrophils # (A) 8.9 k/uL (1.3-7.7); Neutrophils % (A) 89 %; Platelet Count 199 k/uL (150-450); Poikilocytosis Slight; RBC 3.13 m/uL (3.80-5.40); RDW 19.7 % (11.5-15.5)
[2024-07-24 04:40] LABS: MCV 86.7 fL (80.0-100.0)
[2024-07-24] MEDS: LACTATED RINGERS 500 ML IV ONE (04:40)
[2024-07-24 05:01] LABS: Glucose,Whole Blood 117 mg/dL (70-110)
[2024-07-24 05:09] LABS: Target Cells Present
[2024-07-24 05:24] LABS: African American GFR (CKD) 67 (>60 ml/min/1.73 sqM); Anion Gap 8 mmol/L; Blood Urea Nitrogen 40 mg/dL (7-17); Calcium 7.8 mg/dL (8.4-10.2); Carbon Dioxide 10 mmol/L (22-30); Chloride 123 mmol/L (98-107); Glucose 173 mg/dL (74-99); Magnesium 1.4 mg/dL (1.6-2.3); Non-African American GFR(CKD) 58 (>60 ml/min/1.73 sqM); Potassium 3.2 mmol/L (3.5-5.1); Sodium 141 mmol/L (137-145)
[2024-07-24 05:47] LABS: Glucose,Whole Blood 88 mg/dL (70-110)
[2024-07-24] MEDS ORDERED: Magnesium Replacement Protocol 1 EACH MISC MISCELLANE PRN (05:53)
[2024-07-24] MEDS: LACTATED RINGERS 1,000 ML IV ONE (06:00)
[2024-07-24] MEDS: MAGNESIUM SULFATE-D5W PMX 1 GM in DEXTROSE/WATER 1 100ML.BAG IVPB SCH (06:03)
[2024-07-24] MEDS: POTASSIUM BICARBONATE/CIT AC 20 MEQ TABLET.EFF NG-TUBE SCH (06:08)
[2024-07-24 06:14] LABS: Glucose,Whole Blood 131 mg/dL (70-110)
[2024-07-24 06:30] VITALS: BP 82/55
[2024-07-24] MEDS ORDERED: GLYCOPYRROLATE 0.2 MG/ML 2 ML VIAL IVP PRN (06:40)
[2024-07-24] MEDS ORDERED: ARTIFICIAL TEARS-HYPROMELLOSE DROPS 15 ML BTL BOTH EYES PRN (06:40)
[2024-07-24] MEDS ORDERED: ATROPINE OPHTH SOLN 1% 5ML BTL SUBLINGUAL PRN (06:40)
[2024-07-24] MEDS: MORPHINE SULFATE (100 MG/2 ML) 100 MG in SODIUM CHLORIDE 0.9% 100 ML IV SCH (06:58)
[2024-07-24] MEDS: SCOPOLAMINE 1 MG/72 HR PATCH TRANSDERM SCH (07:05)
[2024-07-24] MEDS: MORPHINE SULFATE 2 MG/ML SYRINGE IV PRN (09:00)
--- NOTE | 2024-07-24 09:32 | P.PN ---
Subjective Progress Note Date: 07/24/24 Principal diagnosis: Ileus Patient overnight decompensated with lower blood pressures. Mental status unchanged. Family was contacted and decision to proceed with comfort measures was made. Objective - Vital Signs Vital signs: Vital Signs Temp 97.3 F L 07/24/24 03:50 Pulse 74 07/24/24 06:27 Resp 16 07/24/24 03:50 BP 82/55 07/24/24 06:27 Pulse Ox 98 07/24/24 04:57 FiO2 Intake & Output 07/23/24 07/24/24 07/24/24 18:59 06:59 18:59 Intake Total 8.296 Output Total 300 Balance -300 8.296 Weight 82.372 kg Intake: Intake, IV Titration 8.296 Amount Morphine Sulfate (100 mg/ 8.296 2 ml) 100 mg In Sodium Chloride 0.9% 100 ml @ 1 MG/HR 1.02 mls/hr IV . Q24H [facility] Rx#:[id number] Output: Urine 300 Other: Voiding Method Indwelling Catheter Indwelling Catheter - Exam Abdomen: Soft, nondistended, nontender, ostomy pink without stool or flatus, wound VAC in place - Labs CBC & Chem 7: 07/24/24 04:17 07/24/24 04:17 Labs: Abnormal Lab Results - Last 24 Hours (Table) 07/23/24 07/23/24 07/24/24 Range/Units 09:30 12:18 02:58 RBC (3.80-5.40) m/uL Hgb (11.4-16.0) gm/dL Hct (34.0-46.0) % MCHC (31.0-37.0) g/dL RDW (11.5-15.5) % Neutrophils # (1.3-7.7) k/uL Lymphocytes # (1.0-4.8) k/uL Potassium 2.8 L (3.5-5.1) mmol/L Chloride 122 H (98-107) mmol/L Carbon Dioxide 13 L (22-30) mmol/L BUN 40 H (7-17) mg/dL Glucose (74-99) mg/dL POC Glucose (mg/dL) 54 L 65 L (70-110) mg/dL Calcium (8.4-10.2) mg/dL Magnesium (1.6-2.3) mg/dL 07/24/24 07/24/24 07/24/24 Range/Units 03:56 04:17 04:17 RBC 3.13 L (3.80-5.40) m/uL Hgb 8.1 L (11.4-16.0) gm/dL Hct 27.1 L (34.0-46.0) % MCHC 29.8 L (31.0-37.0) g/dL RDW 19.7 H (11.5-15.5) % Neutrophils # 8.9 H (1.3-7.7) k/uL Lymphocytes # 0.8 L (1.0-4.8) k/uL Potassium 3.2 L (3.5-5.1) mmol/L Chloride 123 H (98-107) mmol/L Carbon Dioxide 10 L (22-30) mmol/L BUN 40 H (7-17) mg/dL Glucose 173 H (74-99) mg/dL POC Glucose (mg/dL) 140 H (70-110) mg/dL Calcium 7.8 L (8.4-10.2) mg/dL Magnesium 1.4 L (1.6-2.3) mg/dL 07/24/24 07/24/24 Range/Units 05:00 06:13 RBC (3.80-5.40) m/uL Hgb (11.4-16.0) gm/dL Hct (34.0-46.0) % MCHC (31.0-37.0) g/dL RDW (11.5-15.5) % Neutrophils # (1.3-7.7) k/uL Lymphocytes # (1.0-4.8) k/uL Potassium (3.5-5.1) mmol/L Chloride (98-107) mmol/L Carbon Dioxide (22-30) mmol/L BUN (7-17) mg/dL Glucose (74-99) mg/dL POC Glucose (mg/dL) 117 H 131 H (70-110) mg/dL Calcium (8.4-10.2) mg/dL Magnesium (1.6-2.3) mg/dL Microbiology - Last 24 Hours (Table) 07/20/24 10:39 Urine Culture - Final Urine,Voided Enterococcus faecium VRE Daria krusei Assessment and Plan (1) Ileus Narrative/Plan: 73-year-old female with multiple medical issues and suspected metabolic encephalopathy with hypotension overnight. Patient was made comfort care which is very appropriate given this patient's multiple health issues and further decline. Current Visit: Yes Status: Acute Code(s): K56.7 - ILEUS, UNSPECIFIED SNOMED Code(s): 687862382
[2024-07-24] MEDS: FAMOTIDINE 20 MG TAB PO SCH (09:51)
--- NOTE | 2024-07-24 12:41 | P.PN ---
Subjective Progress Note Date: 07/23/24 This is a 73-year-old female patient of Dr. Lopez with a past medical history significant for diverticulitis, coronary artery disease, ischemic cardiomyopathy, hypertension, hyperlipidemia and atrial fibrillation. Patient had a recent hospitalization in May at which time she presented because of defibrillator fired and on interrogation was found to be having episodes of atrial fibrillation. Patient is not currently on anticoagulation most likely due to anemia and recent hospitalization for melanic stools possibly related to epistaxis. At the time she was found to have a perforated diverticulitis status post exploratory laparotomy and diverting colostomy with small bowel resection on 05/18. We have been asked to evaluate the patient for runs of ventricular tachycardia, ST elevation and atrial fibrillation. Patient presented to the emergency center on 07/18 due to mental status changes. Patient is currently unresponsive and unable to take any oral medications. Patient is also followed by infectious disease. Atrial fibrillation at 88 bpm, left bundle branch block Chest x-ray reveals no acute pulmonary process. CT of the brain reveals no acute intracranial process. Chronic changes. EKG: Laboratory data: WBC 11.7, hemoglobin 9, platelet count 319. Sodium 139, potassium 3.6, CO2 16, BUN 39 creatinine 0.74. Troponin negative x 1. UA positive for urinary tract infection. Drug screen positive for oxycodone, methamphetamines and cocaine. Current home cardiac medications include aspirin 81 mg at night, atorvastatin 40 mg daily, Plavix 75 mg at night, metoprolol succinate 25 mg twice daily Most recent echocardiogram obtained in April 2024 revealed ejection fraction 40 to 45%, global hypokinesis, trace aortic regurgitation, trace tricuspid regurgitation, mild mitral regurgitation Cardiac catheterization history: August 2023 revealed 90% proximal LAD stenosis with stenting of the proximal LAD. 07/22 The patient is seen today for follow-up. Patient is not having very much urine output. Blood pressure 119/69, heart rate 79, pulse ox 98% on room air. Patient is still not able to wake up enough to eat and not taking any of her oral medications. We did put her on IV Lasix, IV Lopressor and aspirin suppository. Apparently the patient's daughter has contacted hospice but no definite transition has been determined. July 23, 2024 Patient still appears very confused. She is very frail still not tolerating oral diet. PHYSICAL EXAM: VITAL SIGNS: Reviewed. GENERAL: Well-developed in no acute distress. HEENT: Head is normocephalic. Pupils are equal, round. Sclerae anicteric. Neck supple. No JVD or thyromegaly LUNGS: Respirations even and unlabored. Lungs essentially clear to auscultation bilaterally. HEART: Irregular rate and rhythm. S1 and S2 heard. ABDOMEN: Soft. EXTREMITIES: No clubbing or cyanosis. Peripheral pulses intact. Bilateral upp er lower extremity edema NEUROLOGIC: Unresponsive. ASSESSMENT: UTI Metabolic encephalopathy NSVT Paroxysmal atrial fibrillation not currently on anticoagulation due to anemia, history of melenic stools related to epistaxis History of Diverticulitis with pneumoperitoneum status post bowel resection and colostomy Coronary artery disease with previous PCI, most recently to proximal LAD in August 2023 Ischemic cardiomyopathy 30% with recent ICD implantation, improved to 40-45% Hypertension Hyperlipidemia Chronic toxic decubitus ulcer stage IV Third spacing secondary to hypoalbuminemia PLAN: Continue aspirin suppository daily Continue patient on IV Lasix 40 mg twice daily Continue patient on IV Lopressor 5 mg every 8 hours as needed for heart rate greater than 130 bpm Patient to be resumed on her home cardiac medications when she is able to take medications orally Regarding anticoagulation, this can be addressed as an outpatient Patient's prognosis is overall very poor. Objective - Vital Signs Vital signs: Vital Signs Temp 97.3 F L 07/24/24 03:50 Pulse 74 07/24/24 06:27 Resp 16 07/24/24 08:00 BP 82/55 07/24/24 06:27 Pulse Ox 98 07/24/24 04:57 FiO2 Intake & Output 07/23/24 07/24/24 07/24/24 18:59 06:59 18:59 Intake Total 16.116 Output Total 300 Balance -300 16.116 Weight 82.372 kg Intake: Intake, IV Titration 16.116 Amount Morphine Sulfate (100 mg/ 16.116 2 ml) 100 mg In Sodium Chloride 0.9% 100 ml @ 1 MG/HR 1.02 mls/hr IV . Q24H [facility] Rx#:[id number] Output: Urine 300 Other: Voiding Method Indwelling Catheter Indwelling Catheter - Labs CBC & Chem 7: 07/24/24 04:17 07/24/24 04:17 Labs: Abnormal Lab Results - Last 24 Hours (Table) 07/24/24 07/24/24 07/24/24 Range/Units 02:58 03:56 04:17 RBC 3.13 L (3.80-5.40) m/uL Hgb 8.1 L (11.4-16.0) gm/dL Hct 27.1 L (34.0-46.0) % MCHC 29.8 L (31.0-37.0) g/dL RDW 19.7 H (11.5-15.5) % Neutrophils # 8.9 H (1.3-7.7) k/uL Lymphocytes # 0.8 L (1.0-4.8) k/uL Potassium (3.5-5.1) mmol/L Chloride (98-107) mmol/L Carbon Dioxide (22-30) mmol/L BUN (7-17) mg/dL Glucose (74-99) mg/dL POC Glucose (mg/dL) 65 L 140 H (70-110) mg/dL Calcium (8.4-10.2) mg/dL Magnesium (1.6-2.3) mg/dL 07/24/24 07/24/24 07/24/24 Range/Units 04:17 05:00 06:13 RBC (3.80-5.40) m/uL Hgb (11.4-16.0) gm/dL Hct (34.0-46.0) % MCHC (31.0-37.0) g/dL RDW (11.5-15.5) % Neutrophils # (1.3-7.7) k/uL Lymphocytes # (1.0-4.8) k/uL Potassium 3.2 L (3.5-5.1) mmol/L Chloride 123 H (98-107) mmol/L Carbon Dioxide 10 L (22-30) mmol/L BUN 40 H (7-17) mg/dL Glucose 173 H (74-99) mg/dL POC Glucose (mg/dL) 117 H 131 H (70-110) mg/dL Calcium 7.8 L (8.4-10.2) mg/dL Magnesium 1.4 L (1.6-2.3) mg/dL Microbiology - Last 24 Hours (Table) 07/20/24 10:39 Urine Culture - Final Urine,Voided Enterococcus faecium VRE Daria krusei
--- NOTE | 2024-07-24 13:38 | P.PN ---
Progress Note - Text Progress Note Date: 07/24/24 was informed by nursing staff that patient is comfort care. There is no further neurological work-up. Will sign off. Please reconsult if needed.
--- NOTE | 2024-07-24 14:26 | P.PN ---
Subjective Progress Note Date: 07/24/24 Interval History: Patient is a 72-year-old female with a known history of infected unstageable pressure ulcer of the sacrum with recent debridement with cultures growing Proteus and Enterococcus was sent home on antibiotics in the form of cefepime and metronidazole on 07/06/2024. Other medical problems include CAD status post stent placement, paroxysmal atrial fibrillation not on anticoagulation, hypertension, hyperlipidemia, anemia. Patient present back to the hospital due to altered mental status. According to her daughter patient has been very weak and lethargic since yesterday. Patient has been also becoming slow to respond. Patient would also question but in the middle of sentence she fall back asleep. Home visiting nurse also noticed that her Duarte and also feeling of and is concerned about retaining of urine. Urine is also much darker and also concerned about urinary tract infection. Denied any fever or chills. No cough or sputum production. Patient blood pressure 92/69 pulse is 89 respirations 16 and pulse ox 100% on room air. CT head showed no acute intracranial process. Follow-up MRI can be performed as clinically indicated. Chest x-ray showed no acute pulmonary process. EKG showed atrial fibrillation with heart rate 88. Laboratory data showed WBC 8.7 hemoglobin 9.8 and platelets 317, INR 1.5 Sodium 134 potassium 3.5 chloride 110, BUN 35 and creatinine 0.62 and magnesium 1.6 albumin 1.3 and liver enzymes are not elevated troponin x 1 negative Urinalysis showed cloudy with 2+ protein 1+ ketones nitrite positive large leukocyte esterase with elevated RBCs and WBCs. UDS is positive for oxycodone, methamphetamine and cocaine 07/19/2024 Patient is in the MedSurg unit. Awake alert but lethargic and drowsy. Able to follow simple commands. Patient has been afebrile. Patient was not able to tolerate regular diet and was seen by speech pathology. Started on pured diet with one-to-one supervision. Patient has been continued on normal saline at 75 cc/h. Also on antibiotics now, cefepime and Flagyl. Laboratory data showed WBC 10.7 hemoglobin 9.2 and platelets 264 sodium 136 potassium 4.3 chloride 113 bicarb is 17.1 and BUN 32.3 and creatinine 0.5 blood sugar was 60 and calcium 8.2. 07/20/2024 Patient is lethargic and weak. Tries to open her eyes with verbal commands. Unable to provide any history. Not able to tolerate oral diet. IV fluids changed to D5 normal saline due to blood sugar being 60 this morning.. Patient has been afebrile. Continued on antibiotics cefepime and metronidazole and also on well-controlled. Blood cultures negative so far. Wound care with wound VAC in place. Telemetry showed A-fib with RVR with heart rate around 111. Patient will be transferred to telemetry unit and will be given metoprolol 5 mg IV push. Patient is unable to take her metoprolol p.o. Laboratory data showed WBC 8.6 hemoglobin 8.5 and platelets 266 sodium 139 potassium 5.6 with hemolysis, chloride 119 bicarb is 13 BUN 37 creatinine 0.63 and blood sugar 60. 07/21/2024 Patient is lethargic and moaning. Unable to open her eyes. Not able to tole rate oral diet. Currently being continued on IV hydration with D5 normal saline. IV antibiotics in the form of ertapenem. Continued on wound care with wound VAC. Currently on room air. Laboratory showed WBC 11.7 hemoglobin 9.0 and platelets 319 sodium 139 potassium 3.6 chloride 109 bicarb 16 BUN 39 and creatinine 0.74 and blood sugar 121. Ammonia less than 9. Patient was seen by cardiology. Neurology and general surgery was consulted for further evaluation. 07/22/2024 Patient's mental status remains the same. Encephalopathic and moaning. Unable to open eyes with verbal stimuli and follow commands. Patient has been afebrile. Currently on room air. Continued on IV hydration with D5 normal saline. Also on Lasix 40 mg every 12. General surgery was seen the patient for possible ileus. Continued on antibiotics in the form of ertapenem and metronidazole.Wound VAC in place due to the sacral wounds and abdominal wound. Laboratory data showed WBC 10.9 hemoglobin dropped down to 7.5 today and platelets 208 sodium 142 potassium 2.8 which is being replaced. Bicarb is 13 BUN 38 and creatinine 0.81 and blood sugar 117 Due to multimedical problems and comorbid conditions and poor prognosis family would like to discuss with hospice care. 07/23/24--patient was seen and examined today. Mental status remains same, patient remains encephalopathic, moaning. A&O x 0. Unable to open eyes, does not following commands. Remained afebrile. On room air. Heart rate 92, respiratory rate 16, blood pressure 112/69, saturating 95%. BMP reviewed today, potassium 2.8, CO2 13, BUN 40. Creatinine 0.87. Family planning to transition to hospice. 07/24/2024 Overnight patient became hypotensive. Remained encephalopathic. A&O x 0. Family decided CODE STATUS to be comfort measures only. Will continue patient on comfort measures. Prognosis is poor. Assessment and plan: Altered mental status due to metabolic and toxic encephalopathy. Mentation did not show much improvement. UDS positive for oxycodone, methamphetamine send cocaine. Repeat UDS showed oxycodone and opiates. Dehydration volume depletion Possible urinary tract infection. Urine culture showed Daria. Recent infected sacral ulcer unstageable failed outpatient therapy status post surgical debridement and wound cultures growing Proteus and Enterococcus patient is on IV antibiotics in the form of surgery recommend metronidazole via PICC line. Patient was discharged on 07/06/2024 Paroxysmal atrial fibrillation not on anticoagulation. Patient is taking aspirin and Plavix. She has not been taking Eliquis since she coughed up blood in June. Hypertension Hyperlipidemia Normocytic anemia Plan: Treated with IV fluids, antibiotics Daptomycin and ertapenem Flagyl, antifungal voriconazole. Avoid narcotic pain medication use. Replace electrolytes. PT OT was consulted but unable to participate. [employer]UST[employer] X RAY OPERATOR was consulted. Continue with wound care with the wound VAC. Discussed with the patient and her daughter at bedside in detail. Prognosis is guarded at this time due to multiple medical problems and comorbid conditions. Cardiology-the patient and recommended IV Lasix Neurology and general surgery consulted. EEG was done. Hospice care consulted--- patient is currently comfort care only. PHYSICAL EXAMINATION: GENERAL: The patient is A&O x0 HEENT: EOMI, Sclerae anicteric, Moist Mucous membranes Neck: Supple, Non tender, No JVD PULMONARY: Equal breath souds B/L, No wheezing, No crackles. CARDIOVASCULAR: S1, S2 present. No murmurs, rubs, or gallops. ABDOMEN: Soft, nontender, nondistended, normoactive bowel sounds. No guarding or rebound tenderness. MUSCULOSKELETAL: ++ edema, No cyanosis. No clubbing. Normal ROM. Intact peripheral pulses. EXTREMITIES: No cyanosis, clubbing, or pedal edema. NEUROLOGICAL: Limited exam, A&O x 0. Skin: No Rash REVIEW OF SYSTEMS: Limited review of system, patient encephalopathy, ANO x 0. Dictation was produced using [employer] dictation software. please excuse any grammatical, word or spelling errors. Objective - Vital Signs Vital signs: Vital Signs Temp 97.3 F L 07/24/24 03:50 Pulse 74 07/24/24 06:27 Resp 16 07/24/24 08:00 BP 82/55 07/24/24 06:27 Pulse Ox 98 07/24/24 04:57 FiO2 Intake & Output 07/23/24 07/24/24 07/24/24 18:59 06:59 18:59 Intake Total 65.892 Output Total 300 Balance -300 65.892 Weight 82.372 kg Intake: Intake, IV Titration 65.892 Amount Morphine Sulfate (100 mg/ 65.892 2 ml) 100 mg In Sodium Chloride 0.9% 100 ml @ 1 MG/HR 1.02 mls/hr IV . Q24H [facility] Rx#:[id number] Output: Urine 300 Other: Voiding Method Indwelling Catheter Indwelling Catheter - Labs CBC & Chem 7: 07/24/24 04:17 07/24/24 04:17 Labs: Abnormal Lab Results - Last 24 Hours (Table) 07/24/24 07/24/24 07/24/24 Range/Units 02:58 03:56 04:17 RBC 3.13 L (3.80-5.40) m/uL Hgb 8.1 L (11.4-16.0) gm/dL Hct 27.1 L (34.0-46.0) % MCHC 29.8 L (31.0-37.0) g/dL RDW 19.7 H (11.5-15.5) % Neutrophils # 8.9 H (1.3-7.7) k/uL Lymphocytes # 0.8 L (1.0-4.8) k/uL Potassium (3.5-5.1) mmol/L Chloride (98-107) mmol/L Carbon Dioxide (22-30) mmol/L BUN (7-17) mg/dL Glucose (74-99) mg/dL POC Glucose (mg/dL) 65 L 140 H (70-110) mg/dL Calcium (8.4-10.2) mg/dL Magnesium (1.6-2.3) mg/dL 07/24/24 07/24/24 07/24/24 Range/Units 04:17 05:00 06:13 RBC (3.80-5.40) m/uL Hgb (11.4-16.0) gm/dL Hct (34.0-46.0) % MCHC (31.0-37.0) g/dL RDW (11.5-15.5) % Neutrophils # (1.3-7.7) k/uL Lymphocytes # (1.0-4.8) k/uL Potassium 3.2 L (3.5-5.1) mmol/L Chloride 123 H (98-107) mmol/L Carbon Dioxide 10 L (22-30) mmol/L BUN 40 H (7-17) mg/dL Glucose 173 H (74-99) mg/dL POC Glucose (mg/dL) 117 H 131 H (70-110) mg/dL Calcium 7.8 L (8.4-10.2) mg/dL Magnesium 1.4 L (1.6-2.3) mg/dL Microbiology - Last 24 Hours (Table) 07/20/24 10:39 Urine Culture - Final Urine,Voided Enterococcus faecium VRE Daria krusei
--- NOTE | 2024-07-24 15:20 | P.PN ---
Subjective Progress Note Date: 07/24/24 Principal diagnosis: Reason for follow-up is infected sacral ulcer and UTI Patient is a 73-year-old female with a past medical history significant for hypertension hyperlipidemia VT atrial fibrillation, perforated diverticulitis with an abscess abdominal wound dehiscence and a sacral pressure ulcer/osteomyelitis has been brought back to the hospital concerning for mental status changes and possible UTI. On today's evaluation that is 07/24/2024, Patient is afebrile this morning patient remains to be lethargic and unresponsive NG has been discontinued no vomiting diarrhea or any other changes has been reported by the nursing staff currently on room air. Patient white count is 10.0, creatinine 0.96 Objective - Vital Signs Vital signs: Vital Signs Temp 97.3 F L 07/24/24 03:50 Pulse 74 07/24/24 06:27 Resp 16 07/24/24 08:00 BP 82/55 07/24/24 06:27 Pulse Ox 98 07/24/24 04:57 FiO2 Intake & Output 07/23/24 07/24/24 07/24/24 18:59 06:59 18:59 Intake Total 16.116 Output Total 300 Balance -300 16.116 Weight 82.372 kg Intake: Intake, IV Titration 16.116 Amount Morphine Sulfate (100 mg/ 16.116 2 ml) 100 mg In Sodium Chloride 0.9% 100 ml @ 1 MG/HR 1.02 mls/hr IV . Q24H [facility] Rx#:[id number] Output: Urine 300 Other: Voiding Method Indwelling Catheter Indwelling Catheter - Labs CBC & Chem 7: 07/24/24 04:17 07/24/24 04:17 Labs: Abnormal Lab Results - Last 24 Hours (Table) 07/24/24 07/24/24 07/24/24 Range/Units 02:58 03:56 04:17 RBC 3.13 L (3.80-5.40) m/uL Hgb 8.1 L (11.4-16.0) gm/dL Hct 27.1 L (34.0-46.0) % MCHC 29.8 L (31.0-37.0) g/dL RDW 19.7 H (11.5-15.5) % Neutrophils # 8.9 H (1.3-7.7) k/uL Lymphocytes # 0.8 L (1.0-4.8) k/uL Potassium (3.5-5.1) mmol/L Chloride (98-107) mmol/L Carbon Dioxide (22-30) mmol/L BUN (7-17) mg/dL Glucose (74-99) mg/dL POC Glucose (mg/dL) 65 L 140 H (70-110) mg/dL Calcium (8.4-10.2) mg/dL Magnesium (1.6-2.3) mg/dL 07/24/24 07/24/24 07/24/24 Range/Units 04:17 05:00 06:13 RBC (3.80-5.40) m/uL Hgb (11.4-16.0) gm/dL Hct (34.0-46.0) % MCHC (31.0-37.0) g/dL RDW (11.5-15.5) % Neutrophils # (1.3-7.7) k/uL Lymphocytes # (1.0-4.8) k/uL Potassium 3.2 L (3.5-5.1) mmol/L Chloride 123 H (98-107) mmol/L Carbon Dioxide 10 L (22-30) mmol/L BUN 40 H (7-17) mg/dL Glucose 173 H (74-99) mg/dL POC Glucose (mg/dL) 117 H 131 H (70-110) mg/dL Calcium 7.8 L (8.4-10.2) mg/dL Magnesium 1.4 L (1.6-2.3) mg/dL Microbiology - Last 24 Hours (Table) 07/20/24 10:39 Urine Culture - Final Urine,Voided Enterococcus faecium VRE Daria krusei Assessment and Plan (1) UTI (urinary tract infection) Current Visit: Yes Status: Acute Code(s): N39.0 - URINARY TRACT INFECTION, SITE NOT SPECIFIED SNOMED Code(s): 55321432 (2) Sacral osteomyelitis Current Visit: No Status: Acute Code(s): M46.28 - OSTEOMYELITIS OF VERTEBRA, SACRAL AND SACROCOCCYGEAL REGION SNOMED Code(s): 523953794 (3) Sacral ulcer Current Visit: No Status: Acute Code(s): L98.429 - NON-PRESSURE CHRONIC ULCER OF BACK WITH UNSPECIFIED SEVERITY SNOMED Code(s): 02512260 Plan: 1patient presented to hospital with weakness mental status change which is likely multifactorial there was concern for possible catheter assisted UTI however the patient urine drug screen is also positive for oxycodone methamphetamines and cocaine may be contributing to some of her weakness and mental status changes 2-patient also have a infected sacral pressure ulcer with a recent Proteus bacteremia. 3-Duarte catheter has been changed and cultures are currently growing Daria krusei with a question of possible Duarte colonization as the Duarte has already been changed repeat UA is positive patient was started on voriconazole as of 07/20/2024 4-patient is currently on IV Invanz and voriconazole urine is growing VRE as well daptomycin was added however subsequent discontinued as the patient had been switched over to hospice which may be appropriate, family at bedside questions answered Dictation was produced using [employer] dictation software. please excuse any grammatical, word or spelling errors. Time with Patient: Less than 30
[2024-07-25] MEDS: LORazepam 2 MG/ML INJ IV PRN (05:50)
[2024-07-25 14:24] VITALS: BMI 31.1
[2024-07-25] MEDS ORDERED: MORPHINE SULFATE (100 MG/2 ML) 100 MG in SODIUM CHLORIDE 0.9% 100 ML IV SCH (15:00)
--- NOTE | 2024-07-25 15:45 | P.PN ---
Subjective Progress Note Date: 07/25/24 Interval History: Patient is a 72-year-old female with a known history of infected unstageable pressure ulcer of the sacrum with recent debridement with cultures growing Proteus and Enterococcus was sent home on antibiotics in the form of cefepime and metronidazole on 07/06/2024. Other medical problems include CAD status post stent placement, paroxysmal atrial fibrillation not on anticoagulation, hypertension, hyperlipidemia, anemia. Patient present back to the hospital due to altered mental status. According to her daughter patient has been very weak and lethargic since yesterday. Patient has been also becoming slow to respond. Patient would also question but in the middle of sentence she fall back asleep. Home visiting nurse also noticed that her Duarte and also feeling of and is concerned about retaining of urine. Urine is also much darker and also concerned about urinary tract infection. Denied any fever or chills. No cough or sputum production. Patient blood pressure 92/69 pulse is 89 respirations 16 and pulse ox 100% on room air. CT head showed no acute intracranial process. Follow-up MRI can be performed as clinically indicated. Chest x-ray showed no acute pulmonary process. EKG showed atrial fibrillation with heart rate 88. Laboratory data showed WBC 8.7 hemoglobin 9.8 and platelets 317, INR 1.5 Sodium 134 potassium 3.5 chloride 110, BUN 35 and creatinine 0.62 and magnesium 1.6 albumin 1.3 and liver enzymes are not elevated troponin x 1 negative Urinalysis showed cloudy with 2+ protein 1+ ketones nitrite positive large leukocyte esterase with elevated RBCs and WBCs. UDS is positive for oxycodone, methamphetamine and cocaine 07/19/2024 Patient is in the MedSurg unit. Awake alert but lethargic and drowsy. Able to follow simple commands. Patient has been afebrile. Patient was not able to tolerate regular diet and was seen by speech pathology. Started on pured diet with one-to-one supervision. Patient has been continued on normal saline at 75 cc/h. Also on antibiotics now, cefepime and Flagyl. Laboratory data showed WBC 10.7 hemoglobin 9.2 and platelets 264 sodium 136 potassium 4.3 chloride 113 bicarb is 17.1 and BUN 32.3 and creatinine 0.5 blood sugar was 60 and calcium 8.2. 07/20/2024 Patient is lethargic and weak. Tries to open her eyes with verbal commands. Unable to provide any history. Not able to tolerate oral diet. IV fluids changed to D5 normal saline due to blood sugar being 60 this morning.. Patient has been afebrile. Continued on antibiotics cefepime and metronidazole and also on well-controlled. Blood cultures negative so far. Wound care with wound VAC in place. Telemetry showed A-fib with RVR with heart rate around 111. Patient will be transferred to telemetry unit and will be given metoprolol 5 mg IV push. Patient is unable to take her metoprolol p.o. Laboratory data showed WBC 8.6 hemoglobin 8.5 and platelets 266 sodium 139 potassium 5.6 with hemolysis, chloride 119 bicarb is 13 BUN 37 creatinine 0.63 and blood sugar 60. 07/21/2024 Patient is lethargic and moaning. Unable to open her eyes. Not able to tole rate oral diet. Currently being continued on IV hydration with D5 normal saline. IV antibiotics in the form of ertapenem. Continued on wound care with wound VAC. Currently on room air. Laboratory showed WBC 11.7 hemoglobin 9.0 and platelets 319 sodium 139 potassium 3.6 chloride 109 bicarb 16 BUN 39 and creatinine 0.74 and blood sugar 121. Ammonia less than 9. Patient was seen by cardiology. Neurology and general surgery was consulted for further evaluation. 07/22/2024 Patient's mental status remains the same. Encephalopathic and moaning. Unable to open eyes with verbal stimuli and follow commands. Patient has been afebrile. Currently on room air. Continued on IV hydration with D5 normal saline. Also on Lasix 40 mg every 12. General surgery was seen the patient for possible ileus. Continued on antibiotics in the form of ertapenem and metronidazole.Wound VAC in place due to the sacral wounds and abdominal wound. Laboratory data showed WBC 10.9 hemoglobin dropped down to 7.5 today and platelets 208 sodium 142 potassium 2.8 which is being replaced. Bicarb is 13 BUN 38 and creatinine 0.81 and blood sugar 117 Due to multimedical problems and comorbid conditions and poor prognosis family would like to discuss with hospice care. 07/23/24--patient was seen and examined today. Mental status remains same, patient remains encephalopathic, moaning. A&O x 0. Unable to open eyes, does not following commands. Remained afebrile. On room air. Heart rate 92, respiratory rate 16, blood pressure 112/69, saturating 95%. BMP reviewed today, potassium 2.8, CO2 13, BUN 40. Creatinine 0.87. Family planning to transition to hospice. 07/24/2024 Overnight patient became hypotensive. Remained encephalopathic. A&O x 0. Family decided CODE STATUS to be comfort measures only. Will continue patient on comfort measures. Prognosis is poor. 07/25/2024: Patient A and O x 0. He remains on morphine drip for comfort measures. Patient is DNR comfort care only. Family at bedside. Prognosis poor. Assessment and plan: Altered mental status due to metabolic and toxic encephalopathy. Mentation did not show much improvement. UDS positive for oxycodone, methamphetamine send cocaine. Repeat UDS showed oxycodone and opiates. Dehydration volume depletion Possible urinary tract infection. Urine culture showed Daria. Recent infected sacral ulcer unstageable failed outpatient therapy status post surgical debridement and wound cultures growing Proteus and Enterococcus patient is on IV antibiotics in the form of surgery recommend metronidazole via PICC line. Patient was discharged on 07/06/2024 Paroxysmal atrial fibrillation not on anticoagulation. Patient is taking aspirin and Plavix. She has not been taking Eliquis since she coughed up blood in June. Hypertension Hyperlipidemia Normocytic anemia Plan: Treated with IV fluids, antibiotics Daptomycin and ertapenem Flagyl, antifungal voriconazole. Avoid narcotic pain medication use. Replace electrolytes. PT OT was consulted but unable to participate. ENVELOPE SEALER was consulted. Continue with wound care with the wound VAC. Discussed with the patient and her daughter at bedside in detail. Prognosis is guarded at this time due to multiple medical problems and comorbid conditions. Cardiology-the patient and recommended IV Lasix Neurology and general surgery consulted. EEG was done. Hospice care consulted--- patient is currently comfort care only. PHYSICAL EXAMINATION: GENERAL: The patient is A&O x0 Neck: No JVD PULMONARY: Equal breath souds B/L CARDIOVASCULAR: S1, S2 present. MUSCULOSKELETAL: ++ edema EXTREMITIES: No cyanosis, clubbin NEUROLOGICAL: Limited exam, A&O x 0. Skin: No Rash REVIEW OF SYSTEMS: Limited review of system, patient encephalopathy, ANO x 0. Dictation was produced using [employer] software. please excuse any grammatical, word or spelling errors. Objective - Vital Signs Vital signs: Vital Signs Temp 97.3 F L 07/24/24 03:50 Pulse 82 07/25/24 08:00 Resp 16 07/25/24 08:00 BP 82/55 07/24/24 06:27 Pulse Ox 98 07/24/24 04:57 FiO2 Intake & Output 07/24/24 07/25/24 07/25/24 18:59 06:59 18:59 Intake Total 164.220 291.142 102 Output Total 100 Balance 164.220 191.142 102 Weight 82.372 kg Intake: Intake, IV Titration 164.220 291.142 102 Amount Morphine Sulfate (100 mg/ 164.220 291.142 102 2 ml) 100 mg In Sodium Chloride 0.9% 100 ml @ 1 MG/HR 1.02 mls/hr IV . Q24H [facility] Rx#:[id number] Output: Urine 100 Other: Voiding Method Indwelling Catheter Indwelling Catheter - Labs CBC & Chem 7: 07/24/24 04:17 07/24/24 04:17 Labs: Microbiology - Last 24 Hours (Table) 07/19/24 14:26 Blood Culture - Final Blood
[2024-07-25 20:05] VITALS: PULSE 56; RESP 2
--- NOTE | 2024-07-26 19:14 | P.DS ---
Providers Date of admission: 07/18/24 12:38 Expected date of discharge: 07/26/24 Attending physician: Oz Dupree Consults: 07/18/24 12:42 Consult Physician Urgent Consulting Provider: Jelani Krishnamurthy Consult Reason/Comments: UTI Do you want consulting provider notified?: Yes 07/21/24 14:06 Consult Physician Routine Consulting Provider: Ciaran Sanon Consult Reason/Comments: AMS Do you want consulting provider notified?: Already Contacted Primary care physician: Jasson Morales [facility] Course: Discharge diagnoses: Altered mental status due to metabolic and toxic encephalopathy. Mentation did not show much improvement. UDS positive for oxycodone, methamphetamine send cocaine. Repeat UDS showed oxycodone and opiates. Dehydration volume depletion Possible urinary tract infection. Urine culture showed Daria. Recent infected sacral ulcer unstageable failed outpatient therapy status post surgical debridement and wound cultures growing Proteus and Enterococcus patient is on IV antibiotics in the form of surgery recommend metronidazole via PICC line. Patient was discharged on 07/06/2024 Paroxysmal atrial fibrillation not on anticoagulation. Patient is taking aspirin and Plavix. She has not been taking Eliquis since she coughed up blood in June. Hypertension Hyperlipidemia Normocytic anemia Plan: Treated with IV fluids, antibiotics Daptomycin and ertapenem Flagyl, antifungal voriconazole. Avoid narcotic pain medication use. Replace electrolytes. PT OT was consulted but unable to participate. GRAIN BLENDER was consulted. Continue with wound care with the wound VAC. Discussed with the patient and her daughter at bedside in detail. Prognosis is guarded at this time due to multiple medical problems and comorbid conditions. Cardiology-the patient and recommended IV Lasix Neurology and general surgery consulted. EEG was done. Hospice care consulted--- patient was continued on comfort measures only. Patient on 07/25/2024 at 8:24 PM. Hospital course Patient is a 72-year-old female with a known history of infected unstageable pressure ulcer of the sacrum with recent debridement with cultures growing Proteus and Enterococcus was sent home on antibiotics in the form of cefepime and metronidazole on 07/06/2024. Other medical problems include CAD status post stent placement, paroxysmal atrial fibrillation not on anticoagulation, hypertension, hyperlipidemia, anemia. Patient present back to the hospital due to altered mental status. According to her daughter patient has been very weak and lethargic since yesterday. Patient has been also becoming slow to respond. Patient would also question but in the middle of sentence she fall back asleep. Home visiting nurse also noticed that her Du[place] and also feeling of and is concerned about retaining of urine. Urine is also much darker and also concerned about urinary tract infection. Denied any fever or chills. No cough or sputum production. Patient blood pressure 92/69 pulse is 89 respirations 16 and pulse ox 100% on room air. CT head showed no acute intracranial process. Follow-up MRI can be performed as clinically indicated. Chest x-ray showed no acute pulmonary process. EKG showed atrial fibrillation with heart rate 88. Laboratory data showed WBC 8.7 hemoglobin 9.8 and platelets 317, INR 1.5 Sodium 134 potassium 3.5 chloride 110, BUN 35 and creatinine 0.62 and magnesium 1.6 albumin 1.3 and liver enzymes are not elevated troponin x 1 negative Urinalysis showed cloudy with 2+ protein 1+ ketones nitrite positive large leukocyte esterase with elevated RBCs and WBCs. UDS is positive for oxycodone, methamphetamine and cocaine 07/19/2024 Patient is in the MedSurg unit. Awake alert but lethargic and drowsy. Able to follow simple commands. Patient has been afebrile. Patient was not able to tolerate regular diet and was seen by speech pathology. Started on pured diet with one-to-one supervision. Patient has been continued on normal saline at 75 cc/h. Also on antibiotics now, cefepime and Flagyl. Laboratory data showed WBC 10.7 hemoglobin 9.2 and platelets 264 sodium 136 potassium 4.3 chloride 113 bicarb is 17.1 and BUN 32.3 and creatinine 0.5 blood sugar was 60 and calcium 8.2. 07/20/2024 Patient is lethargic and weak. Tries to open her eyes with verbal commands. Unable to provide any history. Not able to tolerate oral diet. IV fluids changed to D5 normal saline due to blood sugar being 60 this morning.. Patient has been afebrile. Continued on antibiotics cefepime and metronidazole and also on well-controlled. Blood cultures negative so far. Wound care with wound VAC in place. Telemetry showed A-fib with RVR with heart rate around 111. Patient will be transferred to telemetry unit and will be given metoprolol 5 mg IV push. Patient is unable to take her metoprolol p.o. Laboratory data showed WBC 8.6 hemoglobin 8.5 and platelets 266 sodium 139 potassium 5.6 with hemolysis, chloride 119 bicarb is 13 BUN 37 creatinine 0.63 and blood sugar 60. 07/21/2024 Patient is lethargic and moaning. Unable to open her eyes. Not able to tolerate oral diet. Currently being continued on IV hydration with D5 normal saline. IV antibiotics in the form of ertapenem. Continued on wound care with wound VAC. Currently on room air. Laboratory showed WBC 11.7 hemoglobin 9.0 and platelets 319 sodium 139 potassium 3.6 chloride 109 bicarb 16 BUN 39 and creatinine 0.74 and blood sugar 121. Ammonia less than 9. Patient was seen by cardiology. Neurology and general surgery was consulted for further evaluation. 07/22/2024 Patient's mental status remains the same. Encephalopathic and moaning. Unable to open eyes with verbal stimuli and follow commands. Patient has been afebrile. Currently on room air. Continued on IV hydration with D5 normal saline. Also on Lasix 40 mg every 12. General surgery was seen the patient for possible ileus. Continued on antibiotics in the form of ertapenem and metronidazole.Wound VAC in place due to the sacral wounds and abdominal wound. Laboratory data showed WBC 10.9 hemoglobin dropped down to 7.5 today and platelets 208 sodium 142 potassium 2.8 which is being replaced. Bicarb is 13 BUN 38 and creatinine 0.81 and blood sugar 117 Due to multimedical problems and comorbid conditions and poor prognosis family would like to discuss with hospice care. 07/23/24--patient was seen and examined today. Mental status remains same, patient remains encephalopathic, moaning. A&O x 0. Unable to open eyes, does not following commands. Remained afebrile. On room air. Heart rate 92, respiratory rate 16, blood pressure 112/69, saturating 95%. BMP reviewed today, potassium 2.8, CO2 13, BUN 40. Creatinine 0.87. Family planning to transition to hospice. 07/24/2024 Overnight patient became hypotensive. Remained encephalopathic. A&O x 0. Family decided CODE STATUS to be comfort measures only. Will continue patient on comfort measures. Prognosis is poor. 07/25/2024: Patient A and O x 0. Patient remained on morphine drip for comfort measures. Prognosis poor, patient later on at 8:24 PM on 07/25/2024. . PHYSICAL EXAMINATION: Patient Dictation was produced using [employer] dictation software. please excuse any grammatical, word or spelling errors. Plan - Discharge Summary Discharge Rx Participant: No New Discharge Prescriptions: No Action Aspirin EC [Ecotrin Low Dose] 81 mg PO DAILY Atorvastatin [Lipitor] 40 mg PO DAILY #90 tab Nitroglycerin Sl Tabs [Nitrostat] 0.4 mg SL Q5M PRN PRN Reason: Chest Pain Metoprolol Succinate [Metoprolol Succinate ER] 25 mg PO BID metroNIDAZOLE [Flagyl] 500 mg PO TID #126 tab Famotidine [Pepcid] 20 mg PO BID #60 tab Clopidogrel [Plavix] 75 mg PO DAILY #0 oxyCODONE-APAP 5-325MG [Percocet 5-325 mg] 1 tab PO Q6HR PRN PRN Reason: Pain Prochlorperazine [Compazine] 10 mg PO Q6H PRN PRN Reason: Nausea DULoxetine HCL [Cymbalta] 60 mg PO DAILY #30 cap Cefepime [Maxipime] 2 gm IVPB Q8HR each Nystatin 100,000 Unit/ml Susp [Mycostatin Oral Susp] 500,000 unit PO QID #360 ml oxyCODONE HCL [oxyCODONE HCL (IR)] 10 mg PO Q4H PRN PRN Reason: Pain Ondansetron [Zofran] 4 mg PO Q8H PRN PRN Reason: Nausea Discharge Medication List Aspirin EC [Ecotrin Low Dose] 81 mg PO DAILY 12/02/17 [History] Atorvastatin [Lipitor] 40 mg PO DAILY #90 tab 09/11/23 [Rx] Nitroglycerin Sl Tabs [Nitrostat] 0.4 mg SL Q5M PRN 05/09/24 [History] Metoprolol Succinate [Metoprolol Succinate ER] 25 mg PO BID 06/27/24 [History] Prochlorperazine [Compazine] 10 mg PO Q6H PRN 06/27/24 [History] oxyCODONE-APAP 5-325MG [Percocet 5-325 mg] 1 tab PO Q6HR PRN 06/27/24 [History] Cefepime [Maxipime] 2 gm IVPB Q8HR each 07/06/24 [Rx] Clopidogrel [Plavix] 75 mg PO DAILY #0 07/06/24 [Rx] DULoxetine HCL [Cymbalta] 60 mg PO DAILY #30 cap 07/06/24 [Rx] Famotidine [Pepcid] 20 mg PO BID #60 tab 07/06/24 [Rx] Nystatin 100,000 Unit/ml Susp [Mycostatin Oral Susp] 500,000 unit PO QID #360 ml 07/06/24 [Rx] metroNIDAZOLE [Flagyl] 500 mg PO TID #126 tab 07/06/24 [Rx] Ondansetron [Zofran] 4 mg PO Q8H PRN 07/18/24 [History] oxyCODONE HCL [oxyCODONE HCL (IR)] 10 mg PO Q4H PRN 07/18/24 [History] Follow up Appointment(s)/Referral(s): Home Health,[facility] [NON-STAFF] - 1 Week [facility] [REFERRING] - 1 Week [facility], [REFERRING] - 1 Week Discharge Disposition: - Preliminary Cause of Preliminary Cause of : Sacral Ulcer
== END 2024-07-25 20:24 | disposition expired | DRG 698 ==
LOC: EC 10:01 → 4SSUR 12:38 → EEVIPCON 12:38 → 4SSUR 17:38 → 3SCARD 07-20 15:36
PROVIDERS: ADMIT Internal Medicine; ATTEND Internal Medicine
PROC: 4A10X4Z Monitoring of Central Nervous Electrical Activity, External Approach (ICD-10-PCS; principal; 2024-07-22)
DX: T83.511A Infection and inflammatory reaction due to indwelling urethral catheter, initial encounter (principal); G92.8 Other toxic encephalopathy; L89.154 Pressure ulcer of sacral region, stage 4; M46.28 Osteomyelitis of vertebra, sacral and sacrococcygeal region; B37.41 Candidal cystitis and urethritis; I47.20 Ventricular tachycardia, unspecified; K56.7 Ileus, unspecified; L98.495 Non-pressure chronic ulcer of skin of other sites with muscle involvement without evidence of necrosis; Y84.6 Urinary catheterization as the cause of abnormal reaction of the patient, or of later complication, without mention of misadventure at the time of the procedure; E86.0 Dehydration; I48.0 Paroxysmal atrial fibrillation; I10 Essential (primary) hypertension; Z79.82 Long term (current) use of aspirin; E78.5 Hyperlipidemia, unspecified; D64.9 Anemia, unspecified; E16.2 Hypoglycemia, unspecified; E88.09 Other disorders of plasma-protein metabolism, not elsewhere classified; I25.10 Atherosclerotic heart disease of native coronary artery without angina pectoris; I25.2 Old myocardial infarction; I25.5 Ischemic cardiomyopathy; I44.7 Left bundle-branch block, unspecified; Z51.5 Encounter for palliative care; N28.89 Other specified disorders of kidney and ureter; Z66 Do not resuscitate; Z79.02 Long term (current) use of antithrombotics/antiplatelets; Z79.899 Other long term (current) drug therapy; Z90.49 Acquired absence of other specified parts of digestive tract; Z87.19 Personal history of other diseases of the digestive system; Z95.5 Presence of coronary angioplasty implant and graft; Z93.3 Colostomy status; F15.90 Other stimulant use, unspecified, uncomplicated; F14.90 Cocaine use, unspecified, uncomplicated; F11.90 Opioid use, unspecified, uncomplicated; I08.3 Combined rheumatic disorders of mitral, aortic and tricuspid valves; Z86.14 Personal history of Methicillin resistant Staphylococcus aureus infection
CPT/HCPCS: 36415; 70450; 71045; 71046; 74018; 80048; 80053; 80306; 81001; 82140; 82607; 82746; 83605; 83735; 84100; 84484; 85025; 85610; 85730; 87040; 87077; 87086; 87186; 93005; 95816; 96361; 96365; 96366; 96367; 99285